=== PATIENT | male | born 1995 | race African-American/Black ===

== ENCOUNTER 2017-08-18 02:22 | Observation (INO) | payer OTHER ==
--- OUTSIDE RECORDS SUMMARY | 2017-08-18 02:25 | XMS | Clinical Summary ---
:1995 Author Organization [facility] Address [address] [place] [address] Phone Care Team Providers Name Role Phone , Primary Care Provider Unavailable Allergies Active Allergy Reactions Severity Noted Date Comments Codeine 05/06/2017 Loracarbef 05/06/2017 Hydrocodone-Acetaminophen 05/06/2017 Current Medications Prescription Sig. Disp. Refills Start Date End Date Status diphenoxylate-atropin Take 1 tablet Active e (LOMOTIL) 2.5-0.025 by mouth 4 mg per tablet (four) times daily as needed for Diarrhea. ondansetron (ZOFRAN) Take 4 mg by Active 4 MG tablet mouth 2 (two) times daily as needed for Nausea. ferric citrate 210 mg Take 630 mg by Active iron Tab mouth 3 (three) times daily. metoprolol Take 150 mg by Active (TOPROL-XL) 100 MG 24 mouth daily . hr tablet acetaminophen-codeine Take 1 tablet Active (TYLENOL #3) 300-30 by mouth every mg per tablet 4 (four) hours as needed for Pain. amLODIPine (NORVASC) Take 10 mg by Active 10 MG tablet mouth daily. sevelamer (RENVELA) Take 4,000 mg Active 800 mg tablet by mouth 3 (three) times daily with meals. ferrous Take 1 capsule Active [id number] by mouth every C-folic acid morning before (FOLTRIN) 110-0.5 mg breakfast. capsule esomeprazole (NEXIUM) Take 40 mg by Active 40 MG capsule mouth as needed . sertraline (ZOLOFT) TK 1 T PO QD 3 06/20/2017 Active 25 MG tablet predniSONE Take 15 mg by Active (DELTASONE) 5 MG mouth daily. tablet predniSONE 0.5 MG Take 15 mg by 08/07/2017 Discontinued halftab half tablet mouth daily. Active Problems Problem Noted Date Pre-transplant evaluation for chronic kidney disease 08/08/2017 ESRD (end stage renal disease) (FORM[facility]LY [facility]) 08/08/2017 S/p cadaver renal transplant 08/08/2017 Kidney transplant failure 08/08/2017 Secondary hypertension due to renal disease 08/08/2017 Obesity (BMI 30-39.9) 08/08/2017 Secondary hyperparathyroidism of renal origin (FORM[facility]LY [facility]) 08/08/2017 Encounters Date Type Specialty Care Team Description 08/12/2017 Scanned Document 08/11/2017 Abstract Transplant Cydney Ojeda RN 08/11/2017 Telephone Transplant Cydney Ojeda RN Committee Review 08/07/2017 Evaluation Transplant Isabel Preciado MD 08/07/2017 Evaluation Transplant Isabel Preciado Pre-transplant evaluation MD Uday for chronic kidney disease (Primary Dx);ESRD (end stage renal disease) (FORMERLY [facility]);S/p cadaver renal transplant;Kidney transplant failure;Secondary hypertension due to renal disease;Obesity (BMI 30-39.9);Secondary hyperparathyroidism of renal origin (FORM[facility]LY [facility]) 08/07/2017 Hospital Encounter Radiology Isabel Preciado MD 08/07/2017 Hospital Encounter Cardiology Isabel Preciado Pre- transplant evaluation MD Uday for chronic kidney disease;ESRD (end stage renal disease) on dialysis (FORM[facility]) 08/07/2017 Orders Only Lab Isabel Preciado Pre-transplant evaluation MD Uday for chronic kidney disease;ESRD (end stage renal disease) on dialysis ([facility]) 08/07/2017 Committee Review Transplant Belinda Rivera 08/07/2017 Orders Only Transplant Isabel Preciado Pre-transplant evaluation MD Uday for chronic kidney disease;ESRD (end stage renal disease) on dialysis ([facility]) 08/05/2017 Telephone Transplant Belinda Rivera Appointment (Spoke with Mr. Horn and he confirmed his appt for 08/07/17. The patient is aware of the preps for the procedue and he's aware of the location of the appts.) 06/11/2017 Telephone Transplant Belinda Rivera Appointment (Per patient grandmother Cydney the patient is unable to keep his appts on 06/12/17); Appointment (Ms. Rod is aware of the new appt date of and she's aware of the preps for thelabs and testing. The itinerary has been mailed to the patient and faxed to the hd unit) from Last 3 Months Family History Medical History Relation Name Comments Unremarkable Brother No Known Problem Father Pancreatitis Mother Ulcers Sister Stomach ulcers Unremarkable Sister Relation Name Status Comments Brother Alive Father Mother Alive Sister Alive Sister Alive Social History Tobacco Use Types Packs/Day Years Used Date Former Smoker Quit: 08/07/2015 Smokeless Tobacco: Never Used Alcohol Use Drinks/Week oz/Week Comments No Sex Assigned at Date Recorded Not on file Last Filed Vital Signs Vital Sign Reading Time Taken Blood Pressure 141/98 08/07/2017 11:21 AM CDT Pulse 94 08/07/2017 11:21 AM CDT Temperature 36.8 C (98.2 F) 08/07/2017 11:21 AM CDT Respiratory Rate 18 08/07/2017 11:21 AM CDT Oxygen Saturation - - Inhaled Oxygen Concentration - - Weight 114.5 kg (252 lb 8 oz) 08/07/2017 11:21 AM CDT Height 188 cm (6' 2") 08/07/2017 11:21 AM CDT Body Mass Index 32.42 08/07/2017 11:21 AM CDT Plan of Treatment Health Maintenance Due Date Last Done Comments INFLUENZA VACCINE 08/24/2017 Results TRANSFUSION SERVICE REPORT - SCAN (08/08/2017 5:45 PM)ECHOCARDIOGRAM REPORT - SCAN (08/07/2017 2:52 PM)CTA abdomen& pelvis (08/07/2017 11:03 AM) Specimen Performing Laboratory [employer] Narrative Addendum Begins REPORT STATUS:A Addendum I have reviewed the nonvascular findings and concur with Dr. Guy's report. Signed: Roro Negron MD Report Verified Date/Time:08/07/2017 14:22:50 Reading Location: [place] [address] Angio Body Reading Room Addendum Ends FINAL REPORT CT angiography of the abdominal aorta and pelvic arteries, 07 August 2017 INDICATION: This is a 22 year old male with end-stage renal disease, presents for pretransplant assessment..This study is performed in an attempt to avoid an invasive procedure. TECHNIQUE: Spiral acquisition before and during intravenous contrast administration using a GE multidetector CT scanner. Images were obtained before and during the dynamic passage of intravenous contrast material.Multi-planar 3-D volume-rendering reconstruction was performed using an independent workstation interactively by the interpreting physician as well as the 3-D specialist for optimal visualisation of the abdominal aorta, pelvic arteries, and its proximal branches. Please refer to the contrast sheet scanned in the RIS system for the amount and route of contrast given. This exam was performed according to our departmental dose-optimisation programme, which includes automated exposure control, adjustment of the mA and/or kV according to patient size and/or use of iterative reconstruction technique. Dose modulation, iterative reconstruction, and/or weight based adjustment of the mA/kV was utilized to reduce the radiation dose to as low as reasonably achievable. FINDINGS: VASCULAR: The abdominal aorta is normal in course, calibre and contour.There is no evidence of acute aortic pathology, specifically, there is no dissection, intramural hematoma, or contained rupture. Quantitative dimensions of the abdominal aorta are as follows: 2.3 cm at the mesenteric segment; 1.8 cm at the renal segment,; and 1.7 cm at the aortic bifurcation. The common iliac, external iliac, common femoral, and the visualized superficial femoral arteries, bilaterally, are widely patent, with no atherosclerosis identified labor representative dimensions of the left and the right external iliac arteries are 8 and 8 mm, respectively. Patient is post renal transplantation. The anastomotic site of the transplant renal artery is at image 231, approximately 4.9 cm from the takeoff of the right external iliac artery. While the origin of the transplant artery is enhanced by contrast, remainder of the transplant artery is not well enhanced by contrast. Similarly, the associated pelvic veins are patent with no venous thrombosis identified.Snuff Grinder dimensions of the left and the right external iliac veins are 13 and 16 mm, respectively. The anastomotic site of the transplant renal vein to the right external iliac vein is at image 55 of the delay images, similar to the transplant artery level. Single left and right renal arteries are seen in the ethmoid in size, consistent with end-stage renal disease status. The celiac axis, SMA, and FADY are widely patent. There are single left and right renal veins that drain normally into inferior vena cava. NON-VASCULAR:- The lung bases are unremarkable. No pleural effusion is identified. In the abdomen, the liver and spleen appears unremarkable. The liver edge is smooth. No abnormal enhancing structure is identified. Small splenule is identified. The gallbladder appears unremarkable. The adrenal glass are not enlarged. The pancreas have no gross abnormality identified. No acute renal pathology is seen and no hydronephrosis or perirenal fluid collection is identified. The kidneys are atrophic consistent with end-stage renal disease status. Tiny nonobstructive renal stone is seen in the right kidney at image 34 measuring 102 mm in diameter. Subcentimeter cyst is identified in the lateral aspect of the right kidney, incompletely assessed, , at image 109. A transplant kidney is identified in the right iliac fossa. No hydronephrosis or perirenal fluid collection is seen. Bowel is not well assessed by CT angiography as enteric contrast is not given. No obvious bowel dilation is identified. No free air or free fluid is seen in the abdomen and pelvis. The prostate appears unremarkable. The bladder has no gross abnormality identified. No acute bony pathology is identified. Sclerosis is seen, likely represent underlying renal osteodystrophy. CONCLUSION: 1. The abdominal aorta is normal in course, calibre and contour. There is no evidence of acute aortic pathology, specifically, there is no dissection, intramural hematoma, or contained rupture. Quantitative dimension of the abdominal aorta are as noted. The pelvic arteries and veins are widely patent with no arterial stenosis or venous thrombosis identified. Snuff Grinder dimensions of the left and the right external iliac arteries and veins are as described above. Patient is post renal transplantation, and the transplant vasculature is to the right external iliac artery and vein as described above. 2. Patent mesenteric arteries. Patent renal arteries. 3.Other findings as described above. 4.An addendum will be dictated regarding the non-vascular findings by the Senior Buyer Planner Radiologist. Signed: Sebastian Guy MD Report Verified Date/Time:08/07/2017 12:37:23 Reading Location: [facility] [address] Cardiology MRI Procedure Note Interface, External Ris In - 08/07/2017 2:24 PM CDT Addendum Begins REPORT STATUS:A Addendum I have reviewed the nonvascular findings and concur with Dr. Guy's report. Signed: Roro Negron MD Report Verified Date/Time: 08/07/2017 14:22:50 Reading Location: [facility] [address] Angio Body Reading Room Addendum Ends FINAL REPORT CT angiography of the abdominal aorta and pelvic arteries, 07 August 2017 INDICATION: This is a 22 year old male with end-stage renal disease, presents for pretransplant assessment.. This study is performed in an attempt to avoid an invasive procedure. TECHNIQUE: Spiral acquisition before and during intravenous contrast administration using a GE multidetector CT scanner. Images were obtained before and during the dynamic passage of intravenous contrast material. Multi-planar 3-D volume-rendering reconstruction was performed using an independent workstation interactively by the interpreting physician as well as the 3-D specialist for optimal visualisation of the abdominal aorta, pelvic arteries, and its proximal branches. Please refer to the contrast sheet scanned in the RIS system for the amount and route of contrast given. This exam was performed according to our departmental dose-optimisation programme, which includes automated exposure control, adjustment of the mA and/or kV according to patient size and/or use of iterative reconstruction technique. Dose modulation, iterative reconstruction, and/or weight based adjustment of the mA/kV was utilized to reduce the radiation dose to as low as reasonably achievable. FINDINGS: VASCULAR: The abdominal aorta is normal in course, calibre and contour. There is no evidence of acute aortic pathology, specifically, there is no dissection, intramural hematoma, or contained rupture. Quantitative dimensions of the abdominal aorta are as follows: 2.3 cm at the mesenteric segment; 1.8 cm at the renal segment,; and 1.7 cm at the aortic bifurcation. The common iliac, external iliac, common femoral, and the visualized superficial femoral arteries, bilaterally, are widely patent, with no atherosclerosis identified labor representative dimensions of the left and the right external iliac arteries are 8 and 8 mm, respectively. Patient is post renal transplantation. The anastomotic site of the transplant renal artery is at image 231, approximately 4.9 cm from the takeoff of the right external iliac artery. While the origin of the transplant artery is enhanced by contrast, remainder of the transplant artery is not well enhanced by contrast. Similarly, the associated pelvic veins are patent with no venous thrombosis identified. Snuff Grinder dimensions of the left and the right external iliac veins are 13 and 16 mm, respectively. The anastomotic site of the transplant renal vein to the right external iliac vein is at image 55 of the delay images, similar to the transplant artery level. Single left and right renal arteries are seen in the ethmoid in size, consistent with end-stage renal disease status. The celiac axis, SMA, and FADY are widely patent. There are single left and right renal veins that drain normally into inferior vena cava. NON-VASCULAR:- The lung bases are unremarkable. No pleural effusion is identified. In the abdomen, the liver and spleen appears unremarkable. The liver edge is smooth. No abnormal enhancing structure is identified. Small splenule is identified. The gallbladder appears unremarkable. The adrenal glass are not enlarged. The pancreas have no gross abnormality identified. No acute renal pathology is seen and no hydronephrosis or perirenal fluid collection is identified. The kidneys are atrophic consistent with end-stage renal disease status. Tiny nonobstructive renal stone is seen in the right kidney at image 34 measuring 102 mm in diameter. Subcentimeter cyst is identified in the lateral aspect of the right kidney, incompletely assessed, , at image 109. A transplant kidney is identified in the right iliac fossa. No hydronephrosis or perirenal fluid collection is seen. Bowel is not well assessed by CT angiography as enteric contrast is not given. No obvious bowel dilation is identified. No free air or free fluid is seen in the abdomen and pelvis. The prostate appears unremarkable. The bladder has no gross abnormality identified. No acute bony pathology is identified. Sclerosis is seen, likely represent underlying renal osteodystrophy. CONCLUSION: 1. The abdominal aorta is normal in course, calibre and contour. There is no evidence of acute aortic pathology, specifically, there is no dissection, intramural hematoma, or contained rupture. Quantitative dimension of the abdominal aorta are as noted. The pelvic arteries and veins are widely patent with no arterial stenosis or venous thrombosis identified. Snuff Grinder dimensions of the left and the right external iliac arteries and veins are as described above. Patient is post renal transplantation, and the transplant vasculature is to the right external iliac artery and vein as described above. 2. Patent mesenteric arteries. Patent renal arteries. 3. Other findings as described above. 4. An addendum will be dictated regarding the non-vascular findings by the Senior Buyer Planner Radiologist. 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 Clinical History ESRD Hypertension HGB 12.1 HCT 36.1 % Height: 74 inches Weight: 113.4 kg (250 lbs) BSA: 2.39 m^2 BMI: 32.1 kg/m^2 HR: 89 bpm BP: 138/97 mmHg Summary Global LV systolic function normal . Moderate concentric LV hypertrophy. Aortic root size (Sinus of Valsalva diameter) is moderately dilated. 4.3 cm Proximal ascending aorta size moderately dilated . 4.1 cm A trace of aortic regurgitation. Unable to estimate peak systolic PA pressure; inadequate TR velocity signal. The estimated RA pressure by IVC dynamics 5-10mmHg . Signature Findings Left Ventricle The left ventricle is chamber size (by vol index ) is normal (male - LVED vol - 34-74ml/m2). Moderate concentric LV hypertrophy. All of the LV segments contract normally . Global LV systolic function normal . LVEF by quantitative assessment is normal (>60%) , Left AtriumLA size is normal (16-34 ml/m2) . Right VentricleThe right ventricular chamber size and systolic function are within normal limits. Right Atrium RA size is normal. Aortic Valve Mild AoV cusp thickening. A trace of aortic regurgitation. Mitral Valve Mild MV leaflet thickening. Trace mitral regurgitation. Tricuspid ValveTV structure is normal. Unable to estimate peak systolic PA pressure; inadequate TR velocity signal. Pulmonic Valve Normal PV structure appears normal by available views. A trace of pulmonary regurgitation. AortaAortic root size (Sinus of Valsalva diameter) is moderately dilated. 4.3 cm Proximal ascending aorta size moderately dilated . 4.1 cm PericardiumNo pericardial effusion is visualized. IVC/SVC/PA/PV/PleuralThe estimated RA pressure by IVC dynamics 5-10mmHg . Chambers/Structures Left Atrium LA Dimension: 3.44 cmLA Area: 20.99 cm^2 LA Volume: 64.28 ml LA Vol. Index: 27 ml/m^2 Left Ventricle LVIDd: 4.68 cm LVEDV 2D: 147.81 ml LVIDs: 2.98 cm LVESV 2D: 44.73 ml LV Septum Diastolic: 1.91 cm LV PW Diastolic: 1.4 cm LVEDV BP Daniels's:143.17 ml LV FS: 36.3 % LVESV BP Daniels's:49.35 mlLV ESV (Cubed):26.46 cc LVEF BP Daniels's: 65.5 % LVOT Diameter: 2.42 cm LV ESV (Teich):34.43 ml LV SV (Teich):66.91 ml LV SI (Teich):28 ml/m^2 LVEF 2D Teich: 69.7 % Aorta Ascending Aorta: 4.06 cm Shunts QS:154.45 ml Doppler/Quantitative Measurements Mitral Valve MV Peak E-Wave: 0.91 m/s MV Peak A-Wave: 0.66 m /s E /A Ratio: 1.39 P eak Gradient: 3.31 mmHg Tissue Doppler E' Septal Velocity: 0.06 m/s E/E': 14.65 E' Lateral Velocity: 0.09 m/s Aortic Valve Peak Velocity: 1.69 m/sMean Velocity: 1.16 m/s Peak Gradient: 11.37 mmHgMean Gradient: 6.21 mmHg AV Area (continuity): 5.14 cm^2 AV VTI: 30.02 cm AV DVI: 1.12 LVOT Peak Velocity: 1.56 m/s Peak Gradient: 9.74 mmHg Mean Velocity: 1.15 m/s Mean Gradient: 6.13 mmHg LVOT Diameter: 2.42 cmLVOT VTI: 33.58 cm LVOT Area: 4.6 cm^2 LVOT SV:154.38 ml LVOT CO: 13.74 l/minLVOT CI: 5.75 l/min/m^2 Procedure Note Interface, External Ris In - 08/07/2017 2:12 PM CDT Transthoracic Echocardiography Report (TTE) Demographics Patient Name ERIN HORN Date of Study 08/07/2017 JERALD Gender Male Visit Number [id number] Race Black Room Number Number Date of 1995 Referring Ozzy Hall Physician Uday 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 Clinical History ESRD Hypertension HGB 12.1 HCT 36.1 % Height: 74 inches Weight: 113.4 kg (250 lbs) BSA: 2.39 m^2 BMI: 32.1kg/m^2 HR: 89 bpm BP: 138/97 mmHg Summary Global LV systolic function normal . Moderate concentric LV hypertrophy. Aortic root size (Sinus of Valsalva diameter) is moderately dilated.4.3 cm Proximal ascending aorta size moderately dilated . 4.1 cm A trace of aortic regurgitation. Unable to estimate peak systolic PA pressure; inadequate TR velocity signal. The estimated RA pressure by IVC dynamics 5-10mmHg . Signature Findings Left Ventricle The left ventricle is chamber size (by volindex) is normal (male - LVED vol - 34-74ml/m2). Moderate concentric LV hypertrophy. All of the LV segments contract normally . Global LV systolic function normal . LVEF by quantitative assessment is normal (>60%), Left Atrium LA size is normal (16-34 ml/m2) . Right Ventricle The right ventricular chamber size and systolic function are within normal limits. Right Atrium RA size is normal. Aortic Valve Mild AoV cusp thickening. A trace of aortic regurgitation. Mitral Valve Mild MV leaflet thickening. Trace mitral regurgitation. Tricuspid Valve TV structure is normal. Unable to estimate peak systolic PA pressure; inadequate TR velocity signal. Pulmonic Valve Normal PV structure appears normal by available views. A trace of pulmonary regurgitation. Aorta Aortic root size (Sinus of Valsalva diameter) is moderately dilated. 4.3 cm Proximal ascending aorta size moderately dilated. 4.1 cm Pericardium No pericardial effusion is visualized. IVC/SVC/PA/PV/Pleural The estimated RA pressure by IVC dynamics5-10mmHg . Chambers/Structures Left Atrium LA Dimension: 3.44 cm LA Area: 20.99 cm^2 LA Volume: 64.28 ml LA Vol. Index: 27 ml/m^2 Left Ventricle LVIDd: 4.68 cm LVEDV 2D:147.81 ml LVIDs: 2.98 cm LVESV 2D:44.73 ml LV Septum Diastolic: 1.91 cm LV PW Diastolic: 1.4 cm LVEDV BP Daniels's:143.17 ml LV FS: 36.3 % LVESV BP Daniels's:49.35 ml LV ESV (Cubed):26.46 cc LVEF BP Daniels's: 65.5 % LVOT Diameter: 2.42 cm LV ESV (Teich):34.43 ml LV SV (Teich):66.91 ml LV SI (Teich):28 ml/m^2 LVEF 2D Teich: 69.7 % Aorta Ascending Aorta: 4.06 cm Shunts QS:154.45 ml Doppler/Quantitative Measurements Mitral Valve MV Peak E-Wave: 0.91 m/s MV Peak A-Wave: 0.66 m/s E/A Ratio: 1.39 Peak Gradient: 3.31 mmHg Tissue Doppler E' Septal Velocity: 0.06 m/s E/E': 14.65 E' Lateral Velocity: 0.09 m/s Aortic Valve Peak Velocity: 1.69 m/s Mean Velocity: 1.16 m/s Peak Gradient: 11.37 mmHg Mean Gradient: 6.21 mmHg AV Area (continuity): 5.14 cm^2 AV VTI: 30.02 cm AV DVI: 1.12 LVOT Peak Velocity: 1.56 m/s Peak Gradient: 9.74 mmHg Mean Velocity: 1.15 m/s Mean Gradient: 6.13 mmHg LVOT Diameter: 2.42 cm LVOT VTI: 33.58 cm LVOT Area: 4.6 cm^2 LVOT SV:154.38 ml LVOT CO: 13.74 l/min LVOT CI: 5.75 l/min/m^2 T Spot TB (08/07/2017 6:53 AM) Component Value Ref Range T-Spot TB Negative Neg Ctrl Spot Count 0 Panel A Spot 0 Panel B Spot [address] >20 Scan Result Specimen Performing Laboratory Blood [facility] [address] [address] PT/aPTT (08/07/2017 6:53 AM) Component Value Ref Range Protime 14.1 11.7 - 14.7 seconds INR 1.1 <=5.9 PTT 33.2 22.5 - 36.0 seconds Specimen Performing Laboratory Blood [address] [address] Narrative RECOMMENDED COUMADIN/WARFARIN INR THERAPY RANGES STANDARD DOSE: 2.0 - 3.0 Includes: PROPHYLAXIS for venous thrombosis, systemic embolization; TREATMENT for venous thrombosis and/or pulmonary embolus. HIGH RISK: Target INR is 2.5-3.5 for patients with mechanical heart valves. HIV-1 Antigen with HIV-1/2 Antibody (08/07/2017 6:53 AM) Component Value Ref Range HIV-1 Antigen with HIV 1&2 Antibody Nonreactive Nonreactive Specimen Performing Laboratory Blood [address] [place] [address] CBC with platelet count + automated diff (08/07/2017 6:53 AM) Component Value Ref Range WBC 7.3 3.5 - 10.5 K/L RBC 3.95(L) 4.63 - 6.08 M/L Hemoglobin 12.1(L) 13.7 - 17.5 GM/DL Hematocrit 36.1(L) 40.1 - 51.0 % MCV 91.4 79.0 - 92.2 fL MCH 30.6 25.7 - 32.2 pg MCHC 33.5 32.3 - 36.5 GM/DL RDW 14.8(H) 11.6 - 14.4 % Platelets 195 150 - 450 K/CU MM MPV 10.4 9.4 - 12.4 fL nRBC 0 0 - 0 /100 WBC % Neutros 49 % % Lymphs 33 % % Monos 13 % % Eos 5 % % Baso 1 % # Neutros 3.57 1.78 - 5.38 K/L # Lymphs 2.43 1.32 - 3.57 K/L # Monos 0.93(H) 0.30 - 0.82 K/L # Eos 0.33 0.04 - 0.54 K/L # Baso 0.05 0.01 - 0.08 K/L Immature Granulocytes-Relative 0 0 - 1 % Specimen Performing Laboratory [address] [address] Hepatitis C Antibody (08/07/2017 6:53 AM) Component Value Ref Range Hepatitis C Ab Nonreactive Nonreactive Specimen Performing Laboratory [address] [address] Cytomegalovirus antibody, IgM (08/07/2017 6:53 AM) Component Value Ref Range CMV IgM Negative Specimen Performing Laboratory [address] [address] Hepatitis B core antibody, IgM (08/07/2017 6:53 AM) Component Value Ref Range Hep B C IgM Nonreactive Nonreactive Specimen Performing Laboratory [address] [address] EBV-VCA antibody, IgM (08/07/2017 6:53 AM) Component Value Ref Range EBV VCA IgM Negative Specimen Performing Laboratory Blood [address] [address] EBV-VCA antibody, IgG (08/07/2017 6:53 AM) Component Value Ref Range EBV VCA IgG Positive Specimen Performing Laboratory Blood [address] [address] RPR (08/07/2017 6:53 AM) Component Value Ref Range RPR Nonreactive Nonreactive Specimen Performing Laboratory Blood [address] [address] Hepatitis B surface antibody (08/07/2017 6:53 AM) Component Value Ref Range Hep B S Ab 366.6(H) <8.0 mIU/mL Specimen Performing Laboratory Blood [address] [address] Hepatitis B surface antigen (08/07/2017 6:53 AM) Component Value Ref Range hepatitis B Surface Ag Nonreactive Nonreactive Specimen Performing Laboratory [address] [address] Cytomegalovirus antibody, IgG (08/07/2017 6:53 AM) Component Value Ref Range CMV IgG Positive Specimen Performing Laboratory Blood [address] [address] CBC w/PLT Count& Auto Differential (08/07/2017 6:53 AM) Specimen Performing Laboratory Blood Narrative The following orders were created for panel order CBC w/PLT Count & Auto Differential. Procedure Abnormality Status --------- ------ CBC with platelet count ...[[id number]]AbnormalFinal result Please view results for these tests on the individual orders. Direct AHG (NATALYA)/Direct Nona (08/07/2017 6:53 AM) Component Value Ref Range Direct [facility]-IGG NEGATIVE Direct [facility]-C3B, C3D NEGATVIE Specimen Performing Laboratory Blood [address] [address] Varicella Zoster Antibody, IgG (08/07/2017 6:53 AM) Component Value Ref Range Varicella IgG 0.4 Al Specimen Performing Laboratory [address] [address] Narrative VARICELLA ZOSTER RESULT INTERPRETATIONS: <=0.8 AlNonreactive:Presumed non-immune to VZV 0.9-1.0 AlEquivocal >=1.1 AlReactive:Presumed immune to VZV Uric Acid (08/07/2017 6:53 AM) Component Value Ref Range Uric Acid 3.0 2.6 - 7.2 mg/dL Specimen Performing Laboratory [address] [address] Phosphorus (08/07/2017 6:53 AM) Component Value Ref Range Phosphorus 3.9 2.3 - 4.7 mg/dL Specimen Performing Laboratory [address] [address] PTH, Intact (08/07/2017 6:53 AM) Component Value Ref Range PTH 647.2(H) 8.5 - 72.5 pg/mL Specimen Performing Laboratory [address] [address] Lactate Dehydrogenase (LDH) (08/07/2017 6:53 AM) Component Value Ref Range LDH 165 125 - 220 U/L Specimen Performing Laboratory [address] [address] Hemoglobin A1c (08/07/2017 6:53 AM) Component Value Ref Range Hemoglobin A1C 4.6 4.3 - 6.1 % Specimen Performing Laboratory [address] [address] Gamma Glutamyl Transferase (GGT) (08/07/2017 6:53 AM) Component Value Ref Range GGT 29 9 - 64 U/L Specimen Performing Laboratory [address] [address] Lipid panel (08/07/2017 6:53 AM) Component Value Ref Range Triglycerides 98 mg/dL Cholesterol 129 mg/dL HDL 40 mg/dL LDL Calculated 69 mg/dL Specimen Performing Laboratory [address] [address] Narrative Triglyceride Reference Range: Low Risk <150 [id number] High Risk 200-499 Very High Risk>=500 Cholesterol Reference Range: Low Risk <200 [id number] High Risk>240 HDL Cholesterol Reference Range: Low Risk >=60 High Risk <40 LDL Cholesterol Reference Range: Optimal<100 Near Hzwagcu142-309 [id number] Kjgv324-557 Very High >=190 Comprehensive metabolic panel (08/07/2017 6:53 AM) Component Value Ref Range Protein, Total 8.1 6.0 - 8.3 gm/dL Albumin 4.3 3.5 - 5.0 g/dL Alkaline Phosphatase 80 40 - 150 U/L Total Bilirubin 0.4 0.2 - 1.2 mg/dL Sodium 140 136 - 145 meq/L Potassium 3.7 3.5 - 5.1 meq/L Chloride 98 98 - 107 meq/L CO2 30(H) 22 - 29 meq/L BUN 18 7 - 21 mg/dL Creatinine 9.01(H) 0.57 - 1.25 mg/dL Glucose 94 70 - 105 mg/dL Calcium 9.8 8.4 - 10.2 mg/dL AST 13 5 - 34 U/L ALT 18 6 - 55 U/L EGFR 9Comment:ESTIMATED GFR IS NOT ACCURATE mL/min/1.73 sq m CREATININE CLEARANCE IN PREDICTING GLOMERULAR FILTRATION RATE. ESTIMATED GFR IS NOT APPLICABLE FOR DIALYSIS PATIENTS. Specimen Performing Laboratory Blood [facility] [address] [place] [address] from Last 3 Months
--- OUTSIDE RECORDS SUMMARY | 2017-08-18 02:25 | XMS ---
:1995 Author Organization [facility] Care Team Providers Name Role Phone SKIN FITTER BLU Unavailable Unavailable SKIN FITTER, BLU Unavailable Unavailable SKIN FITTER, BLU Unavailable Unavailable SKIN FITTER, BLU Unavailable Unavailable SKIN FITTER, BLU Unavailable Unavailable SKIN FITTER, BLU Unavailable Unavailable YAZDANISM, NASIR Unavailable Unavailable YAZDANISM, NASIR Unavailable Unavailable YAZDANISM, NASIR Unavailable Unavailable YAZDANISM, NASIR Unavailable Unavailable YAZDANISM, NASIR Unavailable Unavailable YAZDANISM, NASIR Unavailable Unavailable YAZDANISM, NASIR Unavailable Unavailable YAZDANISM, NASIR Unavailable Unavailable YAZDANISM, NASIR Unavailable Unavailable YAZDANISM, NASIR Unavailable Unavailable MOLINA, PEYMAN Unavailable Unavailable MOLINA, PEYMAN Unavailable Unavailable MOLINA, PEYMAN Unavailable Unavailable MOLINA, PEYMAN Unavailable Unavailable MOLINA, PEYMAN Unavailable Unavailable MOLINA, PEYMAN Unavailable Unavailable MOLINA, PEYMAN Unavailable Unavailable MOLINA, PEYMAN Unavailable Unavailable MOLINA, PEYMAN Unavailable Unavailable RANA, MIKAELA Unavailable Unavailable RANA, MIKAELA Unavailable Unavailable RANA, MIKAELA Unavailable Unavailable RANA, MIKAELA Unavailable Unavailable RANA, MIKAELA Unavailable Unavailable MINCHER, CARISSA Unavailable Unavailable MINCHER, CARISSA Unavailable Unavailable MINCHER, CARISSA Unavailable Unavailable MINCHER, CARISSA Unavailable Unavailable SHARA, YASMANI Unavailable Unavailable SHARA, YASMANI Unavailable Unavailable SHARA, YASMANI Unavailable Unavailable SHARA, YASMANI Unavailable Unavailable SHARA, YASMANI Unavailable Unavailable SHARA, YASMANI Unavailable Unavailable SHARA, YASMANI Unavailable Unavailable SHARA, YASMANI Unavailable Unavailable SHARA, YASMANI Unavailable Unavailable SHARA, YASMANI Unavailable Unavailable Encounters Encounter Providers Location Date Indications Data Source(s) Outpatient Attender: PEYMAN 12/15/2013 [facility] MOLINA MDAdmitter: 11:33:00 AM LOGGING ENGINEER PEYMAN MOLINA MD [facility]: [facility] Inpatient Attender: BLU LOPEZ 11/25/2013 DELArian MDAdmitter: CARISSA 10:37:00 AM LOGGING ENGINEER ANNABEL FERREIRA - 12/08/2013 03:50:00 PM LOGGING ENGINEER Outpatient Attender: YASMANI OLMEDO 06/21/2013 RADHA MDAdmitter: YASMANI 08:15:00 AM CDT SHARA FERREIRA Out[facility]: [facility] 10[facility] AM [facility]T [facility] Outpatient Attender: YASMANI OLMEDO 06/02/2013 RADHA MDAdmitter: YASMANI 09:13:00 AM CDT SHARA FERREIRA Outpatient Attender: YASMANI OLMEDO 05/12/2013 RADHA MDAdmitter: YASMANI 10:24:00 AM CDT SHARA FERREIRA Outpatient Attender: YASMANI OLMEDO 04/21/2013 RADHA MDAdmitter: YASMANI 10:42:00 AM CDT SHARA FERREIRA Inpatient Attender: YASMANI OLMEDO 03/24/2013 RADHA MCGUIREdmitter: YASMANI 12:20:00 PM CDT SHARA FERREIRA - 03/28/2013 10:40:00 PM CDT Inpatient Attender: YASMANI OLMEDO 03/01/2013 RADHA MCGUIREdmitter: YASMANI 12:47:00 PM CDT SHARA FERREIRA - 03/03/2013 08:10:00 AM CDT Outpatient Attender: [facility]: [facility] AM LOGGING ENGINEER [facility] Outpatient Attender: [facility] AM [facility] Inpatient Attender: YASMANI OLMEDO 08/19/2011 [facility]HA FERREIRA 06:40:00 PM CDT - 08/23/2011 02:00:00 PM CDT Inpatient Attender: YASMANI OLMEDO 07/22/2011 [facility] FERREIRA 06:57:00 PM CDT - 08/09/2011 12:20:00 PM CDT Inpatient Attender: YASMANI OLMEDO 06/03/2011 [facility] FERREIRA 03:44:00 PM CDT - 06/07/2011 09:45:00 AM CDT Inpatient Attender: YASMANI OLMEDO 04/01/2011 [facility] FERREIRA 08:36:00 AM CDT - 04/05/2011 04:12:00 PM CDT Inpatient Attender: YASMANI OLMEDO 03/20/2011 RADHA FERREIRA 08:32:00 AM CDT - 03/22/2011 03:23:00 PM CDT Outpatient Attender: MIKAELA CARY 12/12/2010 RADHA FERREIRA 12:11:00 PM LOGGING ENGINEER Insurance Providers Payer name Policy type Policy ID Covered Covered libertarian's Policy Plan / Coverage libertarian ID relationship to Linda Information type linda [place] NOT_[id number] 608_IN_[id number] [place] NOT_VALID_[id number] 777_IN_[id number] MEDICAID Medicaid NOT_[id number] 675_IN_1 [place] NOT_VALID_[id number] 326_IN_1 MEDICAID Medicaid NOT_[id number]_IN_[id number] [place] NOT_VALID_[id number]_IN_[id number] [place] NOT_VALID_[id number]_IN_1 [place] NOT_VALID_[id number] 640_IN_1 [place] Medicaid NOT_VALID_[id number] 514_IN_1 [facility] Medicaid NOT_VALID_[id number]_IN_[id number] SUPERIOR Medicaid MC NOT_VALID_[id number] STAR 524_IN_1 SUPERIOR Medicaid MC NOT_[id number] STAR 341_IN_1 Medicaid MC NOT_VALID_0000 [id number] Medicaid MC NOT_VALID_0000 [id number] Medicaid MC NOT_VALID_0000 [id number] Medicaid MC NOT_VALID_0000 [id number] Medicaid MC NOT_VALID_0000 [id number] Medicaid MC NOT_VALID_0000 [id number] Problems, Conditions, and Diagnoses Code Display Name Description Effective Dates Data Source(s) 284.19 OTHER PANCYTOPENIA PANCYTOPENIA NEC 12/15/2013 [facility] 11:59:00 PM LOGGING ENGINEER 558.9 OTHER AND UNSPECIFIED NONINF GASTROENT 12/15/2013 [facility] NONINFECTIOUS NEC&NOS 11:59:00 PM LOGGING ENGINEER GASTROENTERITIS AND COLITIS 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 12/15/2013 [facility] TRANSPLANT STATUS 11:59:00 PM LOGGING ENGINEER 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 12/15/2013 [facility] 11:59:00 PM LOGGING ENGINEER 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 12/15/2013 [facility] 11:33:00 AM LOGGING ENGINEER 008.69 ENTERITIS DUE TO OTHER VIRAL ENTERITIS NEC 12/08/2013 [facility] VIRAL ENTERITIS 03:50:00 PM LOGGING ENGINEER 403.91 HYPERTENSIVE CHRONIC HTN CKD NOS V-ESRD 12/08/2013 [facility] KIDNEY DISEASE 03:50:00 PM LOGGING ENGINEER UNSPECIFIED WITH CHRONIC KIDNEY DISEASE STAGE V OR END STAGE RENAL DISEASE 425.4 OTHER PRIMARY PRIM CARDIOMYOPATHY NEC 12/08/2013 [facility] CARDIOMYOPATHIES 03:50:00 PM LOGGING ENGINEER 288.00 NEUTROPENIA UNSPECIFIED NEUTROPENIA NOS 12/08/2013 [facility] 03:50:00 PM LOGGING ENGINEER 284.19 OTHER PANCYTOPENIA PANCYTOPENIA NEC 12/08/2013 [facility] 03:50:00 PM LOGGING ENGINEER 585.6 END STAGE RENAL DISEASE ESRD 12/08/2013 [facility] 03:50:00 PM LOGGING ENGINEER 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 12/08/2013 [facility] 03:50:00 PM LOGGING ENGINEER 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 12/08/2013 [facility] TRANSPLANT STATUS 03:50:00 PM LOGGING ENGINEER 532.90 DUODENAL ULCER DU NOS W/O COMP 12/08/2013 [facility] UNSPECIFIED ACUTE OR 03:50:00 PM LOGGING ENGINEER CHRONIC WITHOUT HEMORRHAGE OR PERFORATION WITHOUT OBSTRUCTION 429.3 CARDIOMEGALY CARDIOMEGALY 12/08/2013 [facility] 03:50:00 PM LOGGING ENGINEER 783.21 LOSS OF WEIGHT LOSS OF WEIGHT 11/25/2013 [facility] 10:37:00 AM LOGGING ENGINEER V12.61 PERSONAL HISTORY OF HX PNEUMONIA 07/30/2013 [facility] PNEUMONIA (RECURRENT) 11:59:00 PM CDT E878.2 SURGICAL OPERATION WITH ABN RXN-ANASTOM/GRAFT 07/30/2013 [facility] ANASTOMOSIS BYPASS OR 11:59:00 PM CDT GRAFT WITH NATURAL OR ARTIFICIAL TISSUES USED IMPLANT CAUSING ABNORMAL PATIENT REACTION V58.69 LONG-TERM (CURRENT) USE LONG-TERM USE MEDS NEC 07/30/2013 [facility] OF OTHER MEDICATIONS 11:59:00 PM CDT V58.65 LONG-TERM (CURRENT) USE LONG-TERM STEROID USE 07/30/2013 [facility] OF STEROIDS 11:59:00 PM CDT 530.81 ESOPHAGEAL REFLUX ESOPHAGEAL REFLUX 07/30/2013 [facility] 11:59:00 PM CDT 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 07/30/2013 [facility] TRANSPLANT STATUS 11:59:00 PM CDT 585.6 END STAGE RENAL DISEASE ESRD 07/30/2013 [facility] 11:59:00 PM CDT 403.91 HYPERTENSIVE CHRONIC HTN CKD NOS V-ESRD 07/30/2013 [facility] KIDNEY DISEASE 11:59:00 PM CDT UNSPECIFIED WITH CHRONIC KIDNEY DISEASE STAGE V OR END STAGE RENAL DISEASE 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 07/30/2013 [facility] ACQUIRED 11:59:00 PM CDT 996.73 OTHER COMPLICATIONS DUE COMP D/T RENAL DIALY 07/30/2013 [facility] TO RENAL DIALYSIS DEVICE DEV 11:59:00 PM CDT IMPLANT AND GRAFT 996.73 OTHER COMPLICATIONS DUE COMP D/T RENAL DIALY 07/30/2013 [facility] TO RENAL DIALYSIS DEVICE DEV 12:00:00 AM CDT IMPLANT AND GRAFT V68.9 ENCOUNTERS FOR ADMIN ENCOUNTER NOS 06/21/2013 [facility] UNSPECIFIED 08:15:00 AM CDT ADMINISTRATIVE PURPOSE V68.9 ENCOUNTERS FOR ADMIN ENCOUNTER NOS 06/21/2013 [facility] UNSPECIFIED 08:15:00 AM CDT ADMINISTRATIVE PURPOSE 996.73 OTHER COMPLICATIONS DUE COMP D/T RENAL DIALY 06/11/2013 [facility] TO RENAL DIALYSIS DEVICE DEV 03:45:00 PM CDT IMPLANT AND GRAFT 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 06/11/2013 [facility] UPPER EXTREMITY ANEURYSM 03:45:00 PM CDT 403.91 HYPERTENSIVE CHRONIC HTN CKD NOS V-ESRD 06/11/2013 [facility] KIDNEY DISEASE 03:45:00 PM CDT UNSPECIFIED WITH CHRONIC KIDNEY DISEASE STAGE V OR END STAGE RENAL DISEASE 585.6 END STAGE RENAL DISEASE ESRD 06/11/2013 [facility] 03:45:00 PM CDT E878.2 SURGICAL OPERATION WITH ABN RXN-ANASTOM/GRAFT 06/11/2013 [facility] ANASTOMOSIS BYPASS OR 03:45:00 PM CDT GRAFT WITH NATURAL OR ARTIFICIAL TISSUES USED IMPLANT CAUSING ABNORMAL PATIENT REACTION E849.0 HOME ACCIDENTS HOME ACCIDENTS 06/11/2013 [facility] 03:45:00 PM CDT 530.81 ESOPHAGEAL REFLUX ESOPHAGEAL REFLUX 06/11/2013 [facility] 03:45:00 PM CDT 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 06/11/2013 [facility] TRANSPLANT STATUS 03:45:00 PM CDT 996.73 OTHER COMPLICATIONS DUE COMP D/T RENAL DIALY 06/10/2013 [facility] TO RENAL DIALYSIS DEVICE DEV 10:45:00 AM CDT IMPLANT AND GRAFT 996.81 COMPLICATIONS OF COMP KIDNEY TRANSPLANT 06/02/2013 [facility] TRANSPLANTED KIDNEY 02:25:00 PM CDT 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 06/02/2013 [facility] 02:25:00 PM CDT E878.0 SURGICAL OPERATION WITH ABN RXN-ORG TRANSPLANT 06/02/2013 [facility] TRANSPLANT OF WHOLE 02:25:00 PM CDT ORGAN CAUSING ABNORMAL PATIENT REACTION OR LATER COMPLICATION WITHOUT MISADVENTURE AT TIME OF OPERATION 996.81 COMPLICATIONS OF COMP KIDNEY TRANSPLANT 06/02/2013 [facility] TRANSPLANTED KIDNEY 09:13:00 AM CDT 996.81 COMPLICATIONS OF COMP KIDNEY TRANSPLANT 05/12/2013 [facility] TRANSPLANTED KIDNEY 02:28:00 PM CDT 996.81 COMPLICATIONS OF COMP KIDNEY TRANSPLANT 05/12/2013 [facility] TRANSPLANTED KIDNEY 10:24:00 AM CDT 996.81 COMPLICATIONS OF COMP KIDNEY TRANSPLANT 04/21/2013 [facility] TRANSPLANTED KIDNEY 03:35:00 PM CDT E878.0 SURGICAL OPERATION WITH ABN RXN-ORG TRANSPLANT 04/21/2013 [facility] TRANSPLANT OF WHOLE 03:35:00 PM CDT ORGAN CAUSING ABNORMAL PATIENT REACTION OR LATER COMPLICATION WITHOUT MISADVENTURE AT TIME OF OPERATION 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 04/21/2013 [facility] 03:35:00 PM CDT 996.81 COMPLICATIONS OF COMP KIDNEY TRANSPLANT 04/21/2013 [facility] TRANSPLANTED KIDNEY 10:42:00 AM CDT 276.69 FLUID OVERLOAD NEC FLUID OVERLOAD NEC 03/28/2013 [facility] 10:40:00 PM CDT 585.6 END STAGE RENAL DISEASE ESRD 03/28/2013 [facility] 10:40:00 PM CDT V45.11 RENAL DIALYSIS STATUS DIALYSIS STATUS 03/28/2013 [facility] 10:40:00 PM CDT V15.81 PERSONAL HISTORY OF HX NONCOMPLIANCE MED TX 03/28/2013 [facility] NONCOMPLIANCE WITH 10:40:00 PM CDT MEDICAL TREATMENT PRESENTING HAZARDS TO HEALTH 585.6 END STAGE RENAL DISEASE ESRD 03/24/2013 [facility] 12:20:00 PM CDT 276.69 FLUID OVERLOAD NEC FLUID OVERLOAD NEC 03/03/2013 [facility] 08:10:00 AM CDT 585.6 END STAGE RENAL DISEASE END STAGE RENAL DISEASE 03/03/2013 [facility] 08:10:00 AM CDT 403.91 HYPERTENSIVE CHRONIC HYP KID NOS W CR KID V 03/03/2013 [facility] KIDNEY DISEASE 08:10:00 AM CDT UNSPECIFIED WITH CHRONIC KIDNEY DISEASE STAGE V OR END STAGE RENAL DISEASE V45.12 NONCOMPLIANCE WITH RENAL NONCMPLNT W RENAL 03/03/2013 [facility] DIALYSIS DIALYS 08:10:00 AM CDT V45.11 RENAL DIALYSIS STATUS RENAL DIALYSIS STATUS 03/03/2013 [facility] 08:10:00 AM CDT 276.69 FLUID OVERLOAD NEC FLUID OVERLOAD NEC 03/01/2013 [facility] 12:47:00 PM CDT 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 01/15/2013 [facility] ACQUIRED 12:00:00 AM LOGGING ENGINEER 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 01/15/2013 [facility] ACQUIRED 12:00:00 AM LOGGING ENGINEER 585.6 END STAGE RENAL DISEASE ESRD 01/15/2013 [facility] 12:00:00 AM LOGGING ENGINEER 403.91 HYPERTENSIVE CHRONIC HTN CKD NOS V-ESRD 01/15/2013 [facility] KIDNEY DISEASE 12:00:00 AM LOGGING ENGINEER UNSPECIFIED WITH CHRONIC KIDNEY DISEASE STAGE V OR END STAGE RENAL DISEASE 530.81 ESOPHAGEAL REFLUX ESOPHAGEAL REFLUX 01/15/2013 [facility] 12:00:00 AM LOGGING ENGINEER V45.11 RENAL DIALYSIS STATUS DIALYSIS STATUS 01/15/2013 [facility] 12:00:00 AM LOGGING ENGINEER V58.69 LONG-TERM (CURRENT) USE LONG-TERM USE MEDS NEC 01/15/2013 [facility] OF OTHER MEDICATIONS 12:00:00 AM LOGGING ENGINEER 996.73 OTHER COMPLICATIONS DUE COMP D/T RENAL DIALY 07/09/2012 [facility] TO RENAL DIALYSIS DEVICE DEV 08:00:00 AM CDT IMPLANT AND GRAFT 996.73 OTHER COMPLICATIONS DUE COMP D/T RENAL DIALY 07/09/2012 [facility] TO RENAL DIALYSIS DEVICE DEV 08:00:00 AM CDT IMPLANT AND GRAFT 585.6 END STAGE RENAL DISEASE ESRD 07/09/2012 [facility] 08:00:00 AM CDT 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 07/09/2012 [facility] UPPER EXTREMITY ANEURYSM 08:00:00 AM CDT V45.11 RENAL DIALYSIS STATUS DIALYSIS STATUS 07/09/2012 [facility] 08:00:00 AM CDT E878.2 SURGICAL OPERATION WITH ABN RXN-ANASTOM/GRAFT 07/09/2012 [facility] ANASTOMOSIS BYPASS OR 08:00:00 AM CDT GRAFT WITH NATURAL OR ARTIFICIAL TISSUES USED IMPLANT CAUSING ABNORMAL PATIENT REACTION E849.9 ACCIDENTS OCCURRING IN ACCIDENT IN PLACE NOS 07/09/[address] [facility] [address] 08:00:00 AM CDT V58.69 LONG-TERM (CURRENT) USE LONG-TERM USE MEDS NEC 07/09/2012 [facility] OF OTHER MEDICATIONS 08:00:00 AM CDT 585.6 END STAGE RENAL DISEASE END STAGE RENAL DISEASE [facility] 403.91 HYPERTENSIVE CHRONIC HYP KID NOS W CR KID V [facility] KIDNEY DISEASE UNSPECIFIED WITH CHRONIC KIDNEY DISEASE STAGE V OR END STAGE RENAL DISEASE 314.01 ATTENTION DEFICIT ATTN DEFICIT W HYPERACT [facility] DISORDER OF CHILDHOOD WITH HYPERACTIVITY 296.80 BIPOLAR DISORDER BIPOLAR DISORDER NOS DE[facility] UNSPECIFIED 276.69 FLUID OVERLOAD NEC FLUID OVERLOAD NEC [facility] 585.6 END STAGE RENAL DISEASE END STAGE RENAL DISEASE [facility] 276.69 FLUID OVERLOAD NEC FLUID OVERLOAD NEC [facility] 585.6 END STAGE RENAL DISEASE END STAGE RENAL DISEASE DE[facility] 404.92 HYPERTENSIVE HEART AND HY HT/KD NOS ST V W/O [facility] CHRONIC KIDNEY DISEASE HF UNSPECIFIED WITHOUT HEART FAILURE WITH CHRONIC KIDNEY DISEASE STAGE V OR END STAGE RENAL DISEASE 425.8 CARDIOMYOPATHY IN OTHER CARDIOMYOPATH IN OTH [facility] DISEASES CLASSIFIED DIS ELSEWHERE V45.11 RENAL DIALYSIS STATUS RENAL DIALYSIS STATUS [facility] 275.41 HYPOCALCEMIA HYPOCALCEMIA [facility] 314.01 ATTENTION DEFICIT ATTN DEFICIT W HYPERACT [facility] DISORDER OF CHILDHOOD WITH HYPERACTIVITY 296.90 UNSPECIFIED EPISODIC EPISODIC MOOD DISORD [facility] MOOD DISORDER NOS V15.81 PERSONAL HISTORY OF HX OF PAST [facility] NONCOMPLIANCE WITH NONCOMPLIANCE MEDICAL TREATMENT PRESENTING HAZARDS TO HEALTH 403.91 HYPERTENSIVE CHRONIC HYP KID NOS W CR KID V [facility] KIDNEY DISEASE UNSPECIFIED WITH CHRONIC KIDNEY DISEASE STAGE V OR END STAGE RENAL DISEASE 425.4 OTHER PRIMARY PRIM CARDIOMYOPATHY NEC [facility] CARDIOMYOPATHIES V45.11 RENAL DIALYSIS STATUS RENAL DIALYSIS STATUS [facility] 296.80 BIPOLAR DISORDER BIPOLAR DISORDER NOS [facility] UNSPECIFIED 314.01 ATTENTION DEFICIT ATTN DEFICIT W HYPERACT [facility] DISORDER OF CHILDHOOD WITH HYPERACTIVITY V15.81 PERSONAL HISTORY OF HX OF PAST [facility] NONCOMPLIANCE WITH NONCOMPLIANCE MEDICAL TREATMENT PRESENTING HAZARDS TO HEALTH V58.69 LONG-TERM (CURRENT) USE LONG-TERM USE MEDS NEC [facility] OF OTHER MEDICATIONS 429.3 CARDIOMEGALY CARDIOMEGALY DE[facility] 312.9 UNSPECIFIED DISTURBANCE CONDUCT DISTURBANCE NOS [facility] OF CONDUCT V45.11 RENAL DIALYSIS STATUS RENAL DIALYSIS STATUS [facility] V58.65 LONG-TERM (CURRENT) USE LONG-TERM USE STEROIDS [facility] OF STEROIDS 276.69 FLUID OVERLOAD NEC FLUID OVERLOAD NEC DELL 585.6 END STAGE RENAL DISEASE END STAGE RENAL DISEASE DE[facility] 425.4 OTHER PRIMARY PRIM CARDIOMYOPATHY NEC [facility] CARDIOMYOPATHIES 780.52 INSOMNIA UNSPECIFIED INSOMNIA NOS [facility] 311 DEPRESSIVE DISORDER NOT DEPRESSIVE DISORDER NEC [facility] ELSEWHERE CLASSIFIED V61.20 COUNSELING FOR CNSL PRNT-CHLD PROB NOS [facility] PARENT-CHILD PROBLEM UNSPECIFIED V15.81 PERSONAL HISTORY OF HX OF PAST [facility] NONCOMPLIANCE WITH NONCOMPLIANCE MEDICAL TREATMENT PRESENTING HAZARDS TO HEALTH V58.69 LONG-TERM (CURRENT) USE LONG-TERM USE MEDS NEC [facility] OF OTHER MEDICATIONS 276.69 FLUID OVERLOAD NEC FLUID OVERLOAD NEC DE[facility] 585.6 END STAGE RENAL DISEASE END STAGE RENAL DISEASE DE[facility] 425.4 OTHER PRIMARY PRIM CARDIOMYOPATHY NEC [facility] CARDIOMYOPATHIES V45.11 RENAL DIALYSIS STATUS RENAL DIALYSIS STATUS [facility] 312.9 UNSPECIFIED DISTURBANCE CONDUCT DISTURBANCE NOS [facility] OF CONDUCT 276.7 HYPERPOTASSEMIA HYPERPOTASSEMIA [facility] V45.12 NONCOMPLIANCE WITH RENAL NONCMPLNT W RENAL [facility] DIALYSIS DIALYS 309.9 UNSPECIFIED ADJUSTMENT ADJUSTMENT REACTION NOS [facility] REACTION 296.80 BIPOLAR DISORDER BIPOLAR DISORDER NOS [facility] UNSPECIFIED 314.01 ATTENTION DEFICIT ATTN DEFICIT W HYPERACT [facility] DISORDER OF CHILDHOOD WITH HYPERACTIVITY V58.69 LONG-TERM (CURRENT) USE LONG-TERM USE MEDS NEC [facility] OF OTHER MEDICATIONS 276.69 FLUID OVERLOAD NEC FLUID OVERLOAD NEC DELL 585.6 END STAGE RENAL DISEASE END STAGE RENAL DISEASE [facility] Surgeries/Procedures Procedure Date Indications Data Source(s) CLOS LARGE BOWEL BIOPSY 11/29/2013 12:00:00 AM LOGGING ENGINEER [facility] EGD WITH CLOSED BIOPSY 11/29/2013 12:00:00 AM LOGGING ENGINEER [facility] BONE MARROW BIOPSY 11/26/2013 12:00:00 AM LOGGING ENGINEER [facility] ARM VESSEL EXCISION 07/30/2013 12:00:00 AM CDT [facility] VASCULAR SURGERY PROCEDURE 07/30/2013 12:00:00 AM CDT [facility] REMOV BR[facility]O DIALYSIS SHUNT 07/30/2013 12:00:00 AM CDT [facility] AV FISTULA REVISION OPEN 06/10/2013 10:45:00 AM CDT [facility] DOROTHY BRUNO DIALYSIS SHUNT 06/10/2013 10:45:00 AM CDT [facility] INJCT/INF IMMUNOGLOBULIN 06/02/2013 09:13:00 AM CDT [facility] INJCT/INF IMMUNOGLOBULIN 05/12/2013 10:24:00 AM CDT [facility] INJCT/INF IMMUNOGLOBULIN 04/21/2013 10:42:00 AM CDT [facility] HEMODIALYSIS 03/26/2013 12:00:00 AM CDT [facility] HEMODIALYSIS 03/01/2013 12:47:00 PM CDT [facility] CONTRAST ARTERIOGRAM NEC 01/15/2013 12:00:00 AM LOGGING ENGINEER [facility] ACCESS AV DIAL GRFT FOR EVAL 01/15/2013 12:00:00 AM LOGGING ENGINEER [facility] CONTRAST PHLEBOGRAM NEC 01/15/2013 12:00:00 AM LOGGING ENGINEER [facility] REPAIR DEFECT OF ARTERY 07/09/2012 08:00:00 AM CDT [facility] ARM VESSEL RESECT/ANAST 07/09/2012 08:00:00 AM CDT [facility] HEMODIALYSIS 08/21/2011 12:00:00 AM CDT [facility] HEMODIALYSIS 07/24/2011 12:00:00 AM CDT [facility] HEMODIALYSIS 06/04/2011 12:00:00 AM CDT [facility] HEMODIALYSIS 04/01/2011 12:00:00 AM CDT [facility] HEMODIALYSIS 03/20/2011 12:00:00 AM CDT [facility] REMOVAL TUNNELED CV CATH 12/12/2010 12:00:00 AM LOGGING ENGINEER [facility] REMOVAL FB/DEV FROM SKIN 12/12/2010 12:00:00 AM LOGGING ENGINEER [facility]
[2017-08-18] MEDS ORDERED: Ondansetron HCl/PF 4 MG/2 ML Vial ONE (03:03)
[2017-08-18 03:12] LABS: #Lymphocytes 1.4 thou/uL (1.20-3.40); #Monocytes 0.5 thou/uL (0.11-0.59); #Neutrophils 8.2 thou/uL (1.40-6.50); %Eosinophils 0.1 % (0.0-10.0); %Lymphocytes 14.1 % (28.0-48.0); %Monocytes 4.9 % (0.0-4.0); Mean Platelet Volume 8.2 fL (7.4-10.4); White Blood Cell (WBC) Count 10.1 thou/uL (4.8-10.8)
[2017-08-18 03:20] LABS: PTT 32.7 SEC (22.9-36.1); Prothrombin Time 14.3 SEC (12.0-14.7)
[2017-08-18 03:33] LABS: ALT (SGPT) 9 U/L (8-55); AST (SGOT) 13 U/L (5-34); Alkaline Phosphatase 95 U/L (Less than 750); Anion Gap 23 mmol/L (10-20); BUN (Urea Nitrogen) 66 mg/dL (8.9-20.6); Bilirubin, Total 0.4 mg/dL (0.2-1.2); CK (CPK) 122 U/L (30-200); Calc. Creatinine Clearance 0 mL/min (70-130); Calcium 9.5 mg/dL (7.8-10.44); Carbon Dioxide 24 mmol/L (22-29); Chloride 96 mmol/L (98-107); Estimated GFR-MDRD 5; Globulin 3.8 g/dL (2.4-3.5); Magnesium 2.8 mg/dL (1.7-2.2); Protein, Total 8.1 g/dL (6.0-8.3)
[2017-08-18] MEDS ORDERED: Calcium Chloride 1 GM/10 ML Abboject SYRINGE ONE (03:41)
[2017-08-18] MEDS ORDERED: Dextrose 50% Abboject 50 ML SYRINGE ONE (03:41)
[2017-08-18] MEDS ORDERED: Insulin Regular 300 UNITS/3 ML VIAL ONE (03:41)
[2017-08-18] MEDS ORDERED: Ondansetron HCl/PF 4 MG/2 ML Vial IVP PRN (05:01)
[2017-08-18] MEDS ORDERED: Ondansetron ODT 4 MG TAB SL PRN (05:01)
[2017-08-18] MEDS ORDERED: HYDROcodone/Acetaminophen 5/325 mg Tablet PO PRN (05:52)
[2017-08-18] MEDS ORDERED: Acetaminophen 325 MG TAB PO PRN (05:52)
--- NOTE | 2017-08-18 05:52 | PDOC.EVN ---
Event Note - Event Note Event Note: [id number] H&P DICTATED 1. ESRD 2. Hyperkalemia 3. Elevated BP 4. Secondary hyperparathyroidism plan: see orders
[2017-08-18 06:22] LABS: Troponin I 0.017 ng/mL (< 0.028)
--- NOTE | 2017-08-18 07:09 | HP ---
CHIEF COMPLAINT: Bodyaches, nausea and diarrhea. HISTORY OF PRESENT ILLNESS: The patient is a 22-year-old male with past medical history of end-stage renal disease, hypertension, failed kidney transplant, heart murmur, came to the hospital because of bodyaches. The patient is having bodyaches for the past few days, but he says both upper and lower extremities, spasm kind of pain. The patient said anytime he has electrolyte abnormalities he has similar kind of pain. The patient complains of nausea and diarrhea for the past 5 days, for the past 1 week that is up to 4- 5 times a day, denies any fever, denies any chills, denies any cough, denies production, denies any chest pain. Denies any palpations, denies any dizziness. PAST MEDICAL HISTORY: As per HPI. PAST SURGICAL HISTORY: AV fistula placement and failed history of kidney transplant. SOCIAL HISTORY: Denies smoking, denies alcohol, denies any drugs. FAMILY HISTORY: Positive for kidney problems. MEDICATIONS: Reviewed. REVIEW OF SYSTEMS: CONSTITUTIONAL: Denies any fever, denies any chills. HEENT: Vision problems. Ears no change. Nose normal. Denies any neck pain. CARDIOVASCULAR: Denies any chest pain, denies any palpitations. RESPIRATORY: Denies any cough, denies production. GASTROINTESTINAL: Denies nausea, denies vomiting. GENITOURINARY: Denies dysuria. MUSCULOSKELETAL: Diffuse bodyaches. CRANIAL NERVE SYSTEM: Denies syncope, denies lightheadedness. PSYCHIATRIC: Denies anxiety. INTEGUMENT: Denies any rash. All other review of systems are reviewed and are negative. PHYSICAL EXAMINATION: CONSTITUTIONAL/VITAL SIGNS: At the time of H\T\P performed, blood pressure is 113/66, temperature 98.4, heart rate 90, respiration rate 18, pulse ox 98%. GENERAL: The patient appears comfortable. HEENT: Pupils equal, round and reactive. Nose normal. Ears normal. Teeth intact. Tongue is moist. NECK: Supple. No JVD. CARDIOVASCULAR: S1, S2 present, regular rate and rhythm. Positive for murmur. No rubs or gallops. LUNGS: No wheezing, no rhonchi present bilaterally. ABDOMEN: Soft, nontender, no guarding, no organomegaly, no masses felt. MUSCULOSKELETAL: No edema, good range of motion of joints. INTEGUMENTARY: No rashes seen. EXTREMITIES: Positive for AV fistula in the left upper extremity, possible for bruit and thrill. PSYCHIATRIC: Mood appears calm NEUROLOGIC: Cranial nerves intact. Follows commands. Strength intact, sensory intact. LABORATORY DATA: At the time of H\T\P performed; white count 10.1, hemoglobin 13, platelet count is 213. PT 14.3, INR 1.1. BMP: Sodium 137, potassium 6.4, chloride 96, CO2 24, BUN 6, creatinine 6.35, mag 2.8, globulin 3.8. ASSESSMENT AND PLAN: The patient is a 22-year-old male. 1. End-stage renal disease plus hyperkalemia. Plan to consult Nephrology for patient. Plan to start dialysis due to hyperkalemia and due to EKG changes and monitor the patient closely. 2. History of hypertension. Monitor blood pressure. Continue home blood pressure meds. 3. History of failed kidney transplant. Continue p.o. prednisone daily. 4. Secondary hyperparathyroidism. Monito phosphorus level. Plan renal diet. The case was discussed in detail with the patient. Patient is full code. MTDD
[2017-08-18 07:11] VITALS: TEMP 97.7
[2017-08-18] MEDS ORDERED: predniSONE 20 MG TAB PO SCH (08:00)
[2017-08-18] MEDS ORDERED: predniSONE 5 MG TAB PO SCH (08:00)
[2017-08-18] MEDS ORDERED: FERRIC CITRATE 630 MG PO SCH (08:00)
--- NOTE | 2017-08-18 08:04 | CON ---
DATE OF CONSULTATION: 08/18/2017 CONSULTING PHYSICIAN: Dr. Felix REASON FOR CONSULTATION: Diarrhea. HISTORY OF PRESENT ILLNESS: This is a 22-year-old male with history of end-stage renal disease, hyp ertension who came to the hospital with bodyaches and tingling and was found to have hyperkalemia, p otassium was around 6.4. No chest pain or palpitation. The patient was seen during dialysis today and he is tolerating well. PAST MEDICAL HISTORY: Positive for hypertension, end-stage renal disease, kidney transplant failed. PAST SURGICAL HISTORY: AV fistula placement. HOME MEDICATIONS: Nexium, sertraline, , amlodipine, prednisone, metoprolol. ALLERGIES: HYDROCODONE. SOCIAL HISTORY: No smoking, alcohol or illicit drug abuse. FAMILY HISTORY: Positive for kidney disease. REVIEW OF SYSTEMS: Noncontributory. PHYSICAL EXAMINATION: GENERAL: This is an obese male in no apparent distress. VITAL SIGNS: Temperature 97.7, pulse 70, respirations 18, blood pressure 119/55. HEENT: Atraumatic, normocephalic. Oral mucosa is moist. NECK: Supple. HEART: S1, S2 heard. Rate and rhythm regular. RESPIRATORY: Clear. ABDOMEN: Soft. MUSCULOSKELETAL: No tenderness noted. DERMATOLOGIC: No skin rash. NEUROLOGIC: Alert, awake. PSYCHIATRIC: Mood and affect normal. LABORATORY: Potassium 6.4, BUN 60, creatinine 16.0. ASSESSMENT AND PLAN: 1. End-stage renal disease on hemodialysis. Plan is to have emergent dialysis. The patient has hy perkalemia. The patient was seen and evaluated during dialysis, tolerating well. We will use 2K b ath. 2. Hyperkalemia. We will use 2K bath, limit potassium in the diet. 3. Anemia, stable hemoglobin. 4. Edema, controlled. 5. Hypertension. Blood pressure is stable. 6. Fluid overload, remove fluid with dialysis as tolerated. The patient was advised to limit potassium intake and we will continue to follow.
[2017-08-18] MEDS ORDERED: Metoprolol Tartrate 100 MG TAB PO SCH (09:00)
[2017-08-18] MEDS ORDERED: Folic Acid/Vit B Comp W-C PO SCH (09:00)
[2017-08-18] MEDS: Heparin 5,000 UNITS/ML VIAL SC SCH ×2 (12:07→15:36)
[2017-08-18 12:40] LABS: Troponin I Less than 0.010 ng/mL (< 0.028)
[2017-08-18 13:24] VITALS: BP 110/65
--- NOTE | 2017-08-18 23:43 | DIS ---
DATE OF ADMISSION: 08/18/2017 DATE OF DISCHARGE: 08/18/2017 CONSULTANTS: Nephrology. DIAGNOSES ON DISCHARGE: 1. End-stage renal disease with hyperkalemia, status post hemodialysis, resolved. 2. History of hypertension, stable. 3. History of failed kidney transplant. 4. History of secondary hyperparathyroidism. 5. The patient also has anemia. DISCHARGE MEDICATIONS: The patient's discharge medications are the same as admit medications. DISPOSITION: To home. BRIEF HOSPITAL COURSE: A 22-year-old pleasant gentleman came in with a history of end-stage renal d isease, hypertension, came into the hospital with body aches and tingling, was found to have a potas sium of 6.4. Please refer to the admitting physician's H\T\P for further details. The patient was admitted for that, the patient had dialysis in this hospital stay. Nephrology evaluated the patient . He symptomatically improved and they said that the patient could be discharged home with outpatie nt followup with them. Patient's stay in the hospital was uneventful. PHYSICAL EXAMINATION: VITAL SIGNS: At the time of discharge, the patient's temperature was afebrile, pulse of 70, respira tions 18, blood pressure was 119/55. GENERAL: The patient was lying in bed, in no apparent distress. HEENT: Atraumatic and normocephalic. Pupils equally round and react to light. Extraocular movemen ts intact. Mucous membranes moist. NECK: Supple. No JVD. CHEST: Breath sounds. There are no rales or rhonchi. HEART: S1, S2, no murmurs or gallops. ABDOMEN: Soft. EXTREMITIES: No cyanosis, clubbing or edema. Distal pulses present. NEUROLOGIC: Alert, awake, oriented. No cranial deficits. No sensorimotor deficits. The patient right now is medically stable to be discharged. Discussed with Renal and they are okay with sending the patient home. The patient right now is asked to follow up with PCP and Nephrology as an outpatient, come back to the emergency room in case symptoms recur. Total time for this discharge took 35 minutes.
== END 2017-08-18 17:00 | disposition home or self-care (01) ==
LOC: ERS 02:22 → 2SW 04:35
PROVIDERS: ADMIT Internal Medicine; ATTEND Internal Medicine
DX: I12.0 Hypertensive chronic kidney disease with stage 5 chronic kidney disease or end stage renal disease (principal); T86.12 Kidney transplant failure; N25.81 Secondary hyperparathyroidism of renal origin; D64.9 Anemia, unspecified; Z88.5 Allergy status to narcotic agent; R60.9 Edema, unspecified; Z79.52 Long term (current) use of systemic steroids; Z79.899 Other long term (current) drug therapy; Z88.1 Allergy status to other antibiotic agents
CPT/HCPCS: 36415; 36416; 80053; 82550; 83735; 84484; 85025; 85610; 85730; 87340; 90935; 93005; 94760; 96372; 96374; 96375; A4216; G0257; G0378; J1644; J1815; J2270; J2405; J7506

== ENCOUNTER 2017-08-19 23:33 | Observation (INO) | payer OTHER ==
--- OUTSIDE RECORDS SUMMARY | 2017-08-19 23:35 | XMS | Clinical Summary ---
:1995 Author Organization [facility] Address [address] [place] [address] Phone Care Team Providers Name Role Phone [...] with meals. ferrous Take 1 capsule Active [id number] by mouth every C-folic acid morning before [...] disease 08/08/2017 ESRD (end stage renal disease) ([facility]) 08/08/2017 S/p cadaver renal transplant 08/08/2017 Kidney transplant failure 08/08/2017 Secondary hypertension due to renal disease 08/08/2017 Obesity (BMI 30-39.9) 08/08/2017 Secondary hyperparathyroidism of renal origin ([facility]) 08/08/2017 Encounters Date Type Specialty Care Team Description 08/19/2017 Telephone Transplant Belinda Rivera Follow-up (Ms. Rod called on behalf of her grandson Erin to f/u on ther MRB recommendations she could not remember the name of the vaccination the patient needed. Per Ms. Rod her grandsonis on the way to the doctors. She's aware that the patient will need a varicella vaccination and ABO lab draw. Per Ms. Rod her grandson did not submit the occult blood samples and she's aware I will mail out another kit for the patient to submit) 08/12/2017 Scanned Document 08/11/2017 Abstract Transplant Cydney Ojeda RN 08/11/2017 Telephone Transplant Cydney Ojeda RN Committee Review 08/07/2017 Evaluation Transplant Isabel Preciado MD 08/07/2017 Evaluation Transplant Isabel Preciado Pre-transplant evaluation MD Uday for chronic kidney disease (Primary Dx);ESRD (end stage renal disease) ([facility]);S/p cadaver renal transplant;Kidney transplant failure;Secondary hypertension due to renal disease;Obesity (BMI 30-39.9);Secondary hyperparathyroidism of renal origin ([facility]) 08/07/2017 Hospital Encounter Radiology Isabel Preciado MD 08/07/2017 Hospital Encounter Cardiology Isabel Preciado Pre- transplant evaluation MD Uday for chronic kidney disease;ESRD (end stage renal disease) on dialysis ([facility]) 08/07/2017 Orders Only Lab Isabel Preciado Pre-transplant evaluation MD Uday for chronic kidney disease;ESRD (end stage renal disease) on dialysis ([facility]) 08/07/2017 Committee Review Transplant Belinda Rivera 08/07/2017 Orders Only Transplant Isabel Preciado Pre-transplant evaluation MD Uday for chronic kidney disease;ESRD (end stage renal disease) on dialysis ([facility]) 08/05/2017 Telephone Transplant Belinda Rivera Appointment (Spoke [...] pelvis (08/07/2017 11:03 AM) Specimen Performing Laboratory GE RIS Narrative Addendum Begins REPORT STATUS:A Addendum I have reviewed the nonvascular findings and concur with Dr. Guy's report. Signed: Roro Negron MD Report Verified Date/Time:08/07/2017 14:22:50 Reading Location: [place] [address] Angio Body Reading Room Addendum Ends FINAL REPORT CT angiography of the abdominal aorta and pelvic arteries, 07 August 2017 INDICATION: This is a 22 year old male with end-stage renal disease, presents for pretransplant assessment..This study is performed in an attempt to avoid an invasive procedure. TECHNIQUE: Spiral acquisition before and during intravenous contrast administration using a [employer] multidetector CT scanner. Images were obtained before [...] are widely patent, with no atherosclerosis identified players club representative dimensions of the left and the [...] veins are patent with no venous thrombosis identified.Implementation Analyst dimensions of the left and the right [...] no arterial stenosis or venous thrombosis identified. Implementation Analyst dimensions of the left and the right external iliac arteries and veins are as described above. Patient is post renal transplantation, and the transplant vasculature is to the right external iliac artery and vein as described above. 2. Patent mesenteric arteries. Patent renal arteries. 3.Other findings as described above. 4.An addendum will be dictated regarding the non-vascular findings by the Assorter Laundry Radiologist. Signed: Sebastian Guy MD Report Verified Date/Time:08/07/2017 12:37:23 Reading Location: [place] [address] Cardiology MRI Procedure Note Interface, External Ris In - 08/07/2017 2:24 PM CDT Addendum Begins REPORT STATUS:A Addendum I have reviewed the nonvascular findings and concur with Dr. Guy's report. Signed: Roro Negron MD Report Verified Date/Time: 08/07/2017 14:22:50 Reading Location: [facility] [address] Angio Body Reading Room Addendum Ends FINAL REPORT CT angiography of the abdominal aorta and pelvic arteries, 07 August 2017 INDICATION: This is a 22 year old male with end-stage renal disease, presents for pretransplant assessment.. This study is performed in an attempt to avoid an invasive procedure. TECHNIQUE: Spiral acquisition before and during intravenous contrast administration using a [employer] multidetector CT scanner. Images were obtained before [...] are widely patent, with no atherosclerosis identified players club representative dimensions of the left and the [...] are patent with no venous thrombosis identified. Implementation Analyst dimensions of the left and the right [...] no arterial stenosis or venous thrombosis identified. Implementation Analyst dimensions of the left and the right external iliac arteries and veins are as described above. Patient is post renal transplantation, and the transplant vasculature is to the right external iliac artery and vein as described above. 2. Patent mesenteric arteries. Patent renal arteries. 3. Other findings as described above. 4. An addendum will be dictated regarding the non-vascular findings by the Assorter Laundry Radiologist. 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 [facility] Interpreting Beckie Francis MD Physician Procedure Type [...] Study 08/07/2017 JERALD Gender Male Visit Number [id number] Race Black Room Number Number Date of 1995 Referring Ozzy Hall Physician Uday Age 22 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(s) 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 [facility] Interpreting Beckie Francis MD Physician Procedure Type [...] >20 Scan Result Specimen Performing Laboratory Blood [facility] [address] [facility], [address] [place] [address] PT/aPTT (08/07/2017 6:53 AM) Component Value Ref Range Protime 14.1 11.7 - 14.7 seconds INR 1.1 <=5.9 PTT 33.2 22.5 - 36.0 seconds Specimen Performing Laboratory Blood [address] [address] Narrative RECOMMENDED COUMADIN/WARFARIN INR THERAPY RANGES STANDARD DOSE: 2.0 - 3.0 Includes: PROPHYLAXIS for venous thrombosis, systemic embolization; TREATMENT for venous thrombosis and/or pulmonary embolus. HIGH RISK: Target INR is 2.5-3.5 for patients with mechanical heart valves. HIV-1 Antigen with HIV-1/2 Antibody (08/07/2017 6:53 AM) Component Value Ref Range HIV-1 Antigen with HIV 1&2 Antibody Nonreactive Nonreactive Specimen Performing Laboratory Blood [address] [address] CBC with platelet count + automated diff [...] 0 - 1 % Specimen Performing Laboratory Blood [address] [address] Hepatitis C Antibody (08/07/2017 6:53 AM) Component Value Ref Range Hepatitis C Ab Nonreactive Nonreactive Specimen Performing Laboratory Blood [address] [address] Cytomegalovirus antibody, IgM (08/07/2017 6:53 AM) Component Value Ref Range CMV IgM Negative Specimen Performing Laboratory Blood [address] [address] Hepatitis B core antibody, IgM (08/07/2017 6:53 AM) Component Value Ref Range Hep B C IgM Nonreactive Nonreactive Specimen Performing Laboratory Blood [address] [address] EBV-VCA antibody, IgM (08/07/2017 6:53 AM) Component Value Ref Range EBV VCA IgM Negative Specimen Performing Laboratory Blood [address] [address] EBV-VCA antibody, IgG (08/07/2017 6:53 AM) Component Value Ref Range EBV VCA IgG Positive Specimen Performing Laboratory Blood [address] [address] RPR (08/07/2017 6:53 AM) Component Value Ref Range RPR Nonreactive Nonreactive Specimen Performing Laboratory Blood [address] [address] Hepatitis B surface antibody (08/07/2017 6:53 AM) Component Value Ref Range Hep B S Ab 366.6(H) <8.0 mIU/mL Specimen Performing Laboratory Blood [address] [address] Hepatitis B surface antigen (08/07/2017 6:53 AM) Component Value Ref Range hepatitis B Surface Ag Nonreactive Nonreactive Specimen Performing Laboratory [address] [address] Cytomegalovirus antibody, IgG (08/07/2017 6:53 AM) Component Value Ref Range CMV IgG Positive Specimen Performing Laboratory Blood [address] [address] CBC w/PLT Count& Auto Differential (08/07/2017 6:53 AM) Specimen Performing Laboratory Blood Narrative The following orders were created for panel order CBC w/PLT Count & Auto Differential. Procedure Abnormality Status --------- ------ CBC with platelet count ...[[id number]]AbnormalFinal result Please view results for these tests on the individual orders. Direct AHG (NATALYA)/Direct Nona (08/07/2017 6:53 AM) Component Value Ref Range Direct [facility]-IGG NEGATIVE Direct [facility]-C3B, C3D NEGATVIE Specimen Performing Laboratory [address] [address] Varicella Zoster Antibody, IgG (08/07/2017 6:53 AM) Component Value Ref Range Varicella IgG 0.4 Al Specimen Performing Laboratory [address] [address] Narrative VARICELLA ZOSTER RESULT INTERPRETATIONS: <=0.8 AlNonreactive:Presumed non-immune to VZV 0.9-1.0 AlEquivocal >=1.1 AlReactive:Presumed immune to VZV Uric Acid (08/07/2017 6:53 AM) Component Value Ref Range Uric Acid 3.0 2.6 - 7.2 mg/dL Specimen Performing Laboratory [address] [address] Phosphorus (08/07/2017 6:53 AM) Component Value Ref Range Phosphorus 3.9 2.3 - 4.7 mg/dL Specimen Performing Laboratory [address] [address] PTH, Intact (08/07/2017 6:53 AM) Component Value Ref Range PTH 647.2(H) 8.5 - 72.5 pg/mL Specimen Performing Laboratory [address] [address] Lactate Dehydrogenase (LDH) (08/07/2017 6:53 AM) Component Value Ref Range LDH 165 125 - 220 U/L Specimen Performing Laboratory Blood [address] [address] Hemoglobin A1c (08/07/2017 6:53 AM) Component Value Ref Range Hemoglobin A1C 4.6 4.3 - 6.1 % Specimen Performing Laboratory [address] [address] Gamma Glutamyl Transferase (GGT) (08/07/2017 6:53 AM) Component Value Ref Range GGT 29 9 - 64 U/L Specimen Performing Laboratory [address] [address] Lipid panel (08/07/2017 6:53 AM) Component Value Ref Range Triglycerides 98 mg/dL Cholesterol 129 mg/dL HDL 40 mg/dL LDL Calculated 69 mg/dL Specimen Performing Laboratory Blood [address] [address] Narrative Triglyceride Reference Range: Low Risk <150 [id number] High Risk 200-499 Very High Risk>=500 Cholesterol Reference Range: Low Risk <200 [id number] High Risk>240 HDL Cholesterol Reference Range: Low Risk >=60 High Risk <40 LDL Cholesterol Reference Range: Optimal<100 Near Nzbyghy960-110 [id number] Very High >=190 Comprehensive metabolic panel (08/07/2017 [...] FOR DIALYSIS PATIENTS. Specimen Performing Laboratory Blood [address] [address] from Last 3 Months
--- OUTSIDE RECORDS SUMMARY | 2017-08-19 23:35 | XMS ---
:1995 Author Organization [facility] Care Team Providers Name Role Phone FERRULER BLU Unavailable Unavailable FERRULER, BLU Unavailable Unavailable FERRULER, BLU Unavailable Unavailable FERRULER, BLU Unavailable Unavailable FERRULER, BLU Unavailable Unavailable FERRULER, BLU Unavailable Unavailable RASTAFARIAN, NASIR Unavailable Unavailable RASTAFARIAN, NASIR Unavailable Unavailable RASTAFARIAN, NASIR Unavailable Unavailable RASTAFARIAN, NASIR Unavailable Unavailable RASTAFARIAN, NASIR Unavailable Unavailable RASTAFARIAN, NASIR Unavailable Unavailable RASTAFARIAN, NASIR Unavailable Unavailable RASTAFARIAN, NASIR Unavailable Unavailable RASTAFARIAN, NASIR Unavailable Unavailable RASTAFARIAN, NASIR Unavailable Unavailable MOLINA, PEYMAN Unavailable Unavailable [...] Unavailable Unavailable MINCHER, CARISSA Unavailable Unavailable MINCHER, CARISAS Unavailable Unavailable MINCHER, CARISSA Unavailable Unavailable SHARA, YASMANI Unavailable Unavailable SHARA, YASMANI Unavailable Unavailable SHARA, YASMANI Unavailable Unavailable SHARA, YASMANI Unavailable Unavailable SHARA, YASMANI Unavailable Unavailable SHARA, YASMANI Unavailable Unavailable SHARA, YASMANI Unavailable Unavailable SHARA, YASMANI Unavailable Unavailable SHARA, YASMANI Unavailable Unavailable SHARA, YASMANI Unavailable Unavailable Encounters Encounter Providers Location Date Indications Data Source(s) Outpatient Attender: PEYMAN 12/15/2013 [facility] MOLINA MDAdmitter: 11:33:00 AM SILK PRINTER PEYMAN MOLINA MD [facility] Inpatient Attender: BLU LOPEZ 11/25/2013 DELA[facility] MDAdmitter: CARISSA 10:37:00 AM SILK PRINTER ANNABEL FERREIRA - 12/08/2013 03:50:00 PM SILK PRINTER Outpatient Attender: YASMANI OLMEDO 06/21/2013 RADHA MDAdmitter: YASMANI 08:15:00 AM CDT SHARA FERREIRA [facility] Outpatient Attender: YASMANI OLMEDO 06/02/2013 [...] - 03/03/2013 08:10:00 AM CDT Outpatient Att[facility]: [facility]: [facility] SILK PR[facility] Outpatient Attender: [facility] AM [facility] Inpatient Attender: YASMANI OLMEDO 08/19/2011 [...] MIKAELA CARY 12/12/2010 RADHA FERREIRA 12:11:00 PM SILK PRINTER Insurance Providers Payer name Policy type Policy ID Covered Covered green party's Policy Plan / Coverage green party ID relationship to Linda Information type linda [place] [id number]_IN_[id number] [place] [id number]_IN_[id number] MEDICAID Medicaid [id number]_IN_[id number] [place] NOT_[id number] 326_IN_1 MEDICAID Medicaid [id number]_IN_[id number] [place] NOT_[id number]_IN_1 [place] NOT_[id number]_IN_1 [place] NOT_[id number] 640_IN_1 [place] Medicaid NOT_VALID_[id number] 514_IN_1 [facility] Medicaid NOT_VALID_[id number] 088_IN_[id number] [employer] Medicaid MC [id number] STAR 524_IN_1 [employer] Medicaid [id number] STAR 341_IN_1 Medicaid MC NOT_VALID_0000 [id number] Medicaid MC NOT_VALID_0000 [id number] Medicaid MC NOT_VALID_0000 [id number] Medicaid MC NOT_VALID_0000 [id number] Medicaid MC NOT_VALID_0000 [id number] Medicaid MC NOT_VALID_0000 [id number] Problems, Conditions, and Diagnoses Code Display Name Description Effective Dates Data Source(s) 284.19 OTHER PANCYTOPENIA PANCYTOPENIA NEC 12/15/2013 [facility] 11:59:00 PM SILK PRINTER 558.9 OTHER AND UNSPECIFIED NONINF GASTROENT 12/15/2013 [facility] NONINFECTIOUS NEC&NOS 11:59:00 PM SILK PRINTER GASTROENTERITIS AND COLITIS 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 12/15/2013 [facility] TRANSPLANT STATUS 11:59:00 PM SILK PRINTER 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 12/15/2013 [facility] 11:59:00 PM SILK PRINTER 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 12/15/2013 [facility] 11:33:00 AM SILK PRINTER 008.69 ENTERITIS DUE TO OTHER VIRAL ENTERITIS NEC 12/08/2013 [facility] VIRAL ENTERITIS 03:50:00 PM SILK PRINTER 403.91 HYPERTENSIVE CHRONIC HTN CKD NOS V-ESRD 12/08/2013 [facility] KIDNEY DISEASE 03:50:00 PM SILK PRINTER UNSPECIFIED WITH CHRONIC KIDNEY DISEASE STAGE V OR END STAGE RENAL DISEASE 425.4 OTHER PRIMARY PRIM CARDIOMYOPATHY NEC 12/08/2013 [facility] CARDIOMYOPATHIES 03:50:00 PM SILK PRINTER 288.00 NEUTROPENIA UNSPECIFIED NEUTROPENIA NOS 12/08/2013 [facility] 03:50:00 PM SILK PRINTER 284.19 OTHER PANCYTOPENIA PANCYTOPENIA NEC 12/08/2013 [facility] 03:50:00 PM SILK PRINTER 585.6 END STAGE RENAL DISEASE ESRD 12/08/2013 [facility] 03:50:00 PM SILK PRINTER 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 12/08/2013 [facility] 03:50:00 PM SILK PRINTER 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 12/08/2013 [facility] TRANSPLANT STATUS 03:50:00 PM SILK PRINTER 532.90 DUODENAL ULCER DU NOS W/O COMP 12/08/2013 [facility] UNSPECIFIED ACUTE OR 03:50:00 PM SILK PRINTER CHRONIC WITHOUT HEMORRHAGE OR PERFORATION WITHOUT OBSTRUCTION 429.3 CARDIOMEGALY CARDIOMEGALY 12/08/2013 [facility] 03:50:00 PM SILK PRINTER 783.21 LOSS OF WEIGHT LOSS OF WEIGHT 11/25/2013 [facility] 10:37:00 AM SILK PRINTER V12.61 PERSONAL HISTORY OF HX PNEUMONIA 07/30/2013 [...] AV FISTULA 01/15/2013 [facility] ACQUIRED 12:00:00 AM SILK PRINTER 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 01/15/2013 [facility] ACQUIRED 12:00:00 AM SILK PRINTER 585.6 END STAGE RENAL DISEASE ESRD 01/15/2013 [facility] 12:00:00 AM SILK PRINTER 403.91 HYPERTENSIVE CHRONIC HTN CKD NOS V-ESRD 01/15/2013 [facility] KIDNEY DISEASE 12:00:00 AM SILK PRINTER UNSPECIFIED WITH CHRONIC KIDNEY DISEASE STAGE V OR END STAGE RENAL DISEASE 530.81 ESOPHAGEAL REFLUX ESOPHAGEAL REFLUX 01/15/2013 [facility] 12:00:00 AM SILK PRINTER V45.11 RENAL DIALYSIS STATUS DIALYSIS STATUS 01/15/2013 [facility] 12:00:00 AM SILK PRINTER V58.69 LONG-TERM (CURRENT) USE LONG-TERM USE MEDS NEC 01/15/2013 [facility] OF OTHER MEDICATIONS 12:00:00 AM SILK PRINTER 996.73 OTHER COMPLICATIONS DUE COMP D/T RENAL [...] CLOS LARGE BOWEL BIOPSY 11/29/2013 12:00:00 AM SILK PRINTER [facility] EGD WITH CLOSED BIOPSY 11/29/2013 12:00:00 AM SILK PRINTER [facility] BONE MARROW BIOPSY 11/26/2013 12:00:00 AM SILK PRINTER [facility] ARM VESSEL EXCISION 07/30/2013 12:00:00 AM [...] [facility] CONTRAST ARTERIOGRAM NEC 01/15/2013 12:00:00 AM SILK PRINTER [facility] ACCESS AV DIAL GRFT FOR EVAL 01/15/2013 12:00:00 AM SILK PRINTER [facility] CONTRAST PHLEBOGRAM NEC 01/15/2013 12:00:00 AM SILK PRINTER [facility] REPAIR DEFECT OF ARTERY 07/09/2012 08:00:00 AM CDT [facility] ARM VESSEL RESECT/ANAST 07/09/2012 08:00:00 AM CDT [facility] HEMODIALYSIS 08/21/2011 12:00:00 AM CDT [facility] HEMODIALYSIS 07/24/2011 12:00:00 AM CDT [facility] HEMODIALYSIS 06/04/2011 12:00:00 AM CDT [facility] HEMODIALYSIS 04/01/2011 12:00:00 AM CDT [facility] HEMODIALYSIS 03/20/2011 12:00:00 AM CDT [facility] REMOVAL TUNNELED CV CATH 12/12/2010 12:00:00 AM SILK PRINTER [facility] REMOVAL FB/DEV FROM SKIN 12/12/2010 12:00:00 AM SILK PRINTER [facility]
[2017-08-20 00:39] LABS: #Lymphocytes 1.3 thou/uL (1.20-3.40); #Monocytes 0.4 thou/uL (0.11-0.59); #Neutrophils 5.9 thou/uL (1.40-6.50); %Basophils 0.3 % (0.0-1.0); %Monocytes 4.8 % (0.0-4.0); Hematocrit 37.3 % (42.0-52.0); Mean Platelet Volume 8.4 fL (7.4-10.4); Red Blood Cell (RBC) Count 3.94 mill/uL (4.00-5.20); White Blood Cell (WBC) Count 7.6 thou/uL (4.8-10.8)
[2017-08-20 01:40] LABS: Chloride 98 mmol/L (98-107)
[2017-08-20 01:41] LABS: Calcium 9.6 mg/dL (7.8-10.44)
[2017-08-20 01:42] LABS: Globulin 3.3 g/dL (2.4-3.5); Protein, Total 7.2 g/dL (6.0-8.3)
[2017-08-20 01:43] LABS: Anion Gap 21 mmol/L (10-20); Bilirubin, Total 0.4 mg/dL (0.2-1.2); Carbon Dioxide 26 mmol/L (22-29)
[2017-08-20 01:45] LABS: Alkaline Phosphatase 81 U/L (Less than 750); Calc. Creatinine Clearance 0 mL/min (70-130); Estimated GFR-MDRD 5
[2017-08-20 01:46] LABS: BUN (Urea Nitrogen) 54 mg/dL (8.9-20.6)
[2017-08-20 01:47] LABS: AST (SGOT) 39 U/L (5-34)
[2017-08-20 01:48] LABS: ALT (SGPT) 39 U/L (8-55)
[2017-08-20] MEDS ORDERED: CALCIUM GLUCONATE 25 GM TUBE ONE (02:01)
[2017-08-20] MEDS ORDERED: Calcium Gluc 4.6 MEQ/10 ML (100 MG/ML) SLOW IVP SCH (02:15)
[2017-08-20 03:15] LABS: CK (CPK) 67 U/L (30-200); Magnesium 2.2 mg/dL (1.7-2.2)
--- NOTE | 2017-08-20 04:42 | HP ---
DATE OF ADMISSION: 08/20/2017 PRIMARY CARE PHYSICIAN: Dr. Zeng. PRIMARY DEPOT AGENT: Dr. Arrieta. CHIEF COMPLAINT: Generalized fatigue. HISTORY OF PRESENT ILLNESS: The patient is a 22-year-old male with end-stage renal disease with int ermittent hemodialysis, hypertension who presented to the emergency room with above complaints. The patient was admitted at this facility 2 days ago for generalized body aches. His workup was con sistent with hyperkalemia with potassium of 6.4. He underwent hemodialysis per Nephrology and was d ischarged home on the same day. He was scheduled to get a hemodialysis later today per patient repo rt. The patient presented to the emergency room with generalized body aches and fatigue. He also had ge neralized muscle cramps. He felt nauseous; however, denies any vomiting, abdominal pain, cough, siena rtness of breath or wheezing. He does not make any urine. He claims to be compliant with low potas sium diet. In the emergency room, his initial vital signs showed temperature 98.1, respirations 20, pulse of 74 with blood pressure 130/87 with O2 saturation 99% on room air. His workup was consistent with hype rkalemia with potassium of 6.5. Nephrology has been contacted for emergent hemodialysis. His EKG s howed sinus rhythm with peaked T-wave changes. PAST MEDICAL HISTORY: 1. End-stage renal disease with intermittent hemodialysis since the age of 12. 2. Hypertension. 3. Chronic anemia secondary to end-stage renal disease. 4. 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 PAST SURGICAL HISTORY: 1. Dialysis access. 2. Renal transplant in 2012 with progressive rejection and failure. ALLERGIES: The patient is allergic to HYDROCODONE. CURRENT HOME MEDICATIONS: Unavailable at this time. The patient does not remember all of his medic ations. He is currently on prednisone 15 mg daily per patient report. FAMILY HISTORY: Positive for hypertension and CKD. SOCIAL HISTORY: The patient currently lives at home. No current use of tobacco, alcohol or drug us e reported. REVIEW OF SYSTEMS: The following complete review of systems was negative, unless otherwise mentione d in the HPI or below: Constitutional: Weight loss or gain, ability to conduct usual activities. Skin: Rash, itching. Eyes: Double vision, pain. ENT/Mouth: Nose bleeding, neck stiffness, pain, tenderness. Cardiovascular: Palpitations, dyspnea on exertion, orthopnea. Respiratory: Shortness of breath, wheezing, cough, hemoptysis, fever or night sweats. Gastrointestinal: Poor appetite, abdominal pain, heartburn, nausea, vomiting, constipation, or diar alo. Genitourinary: Urgency, frequency, dysuria, nocturia. Musculoskeletal: Pain, swelling. Neurologic/Psychiatric: Anxiety, depression. Allergy/Immunologic: Skin rash, bleeding tendency. PHYSICAL EXAMINATION: VITAL SIGNS: As discussed above. GENERAL: A 22-year-old male with generalized fatigue. Pain somewhat improved with pain medicine in the emergency room. HEENT: Head atraumatic, normocephalic. Sclerae are anicteric. Moist mucous membranes. No oral le nohemi. NECK: Supple, no JVD appreciated. No carotid bruit. LUNGS: Showed scattered rales at bases. HEART: S1, S2 present. Regular rate and rhythm. No significant rubs, gallops or murmurs appreciat ed. ABDOMEN: Soft, mild generalized tenderness, without any rebound, guarding, no costovertebral angle tenderness. EXTREMITIES: No edema or calf tenderness. NEUROLOGIC: Grossly nonfocal, moves all four extremities. PSYCHIATRY: Alert, awake, oriented x3. SKIN: Warm and dry. LYMPH NODES: No palpable lymph nodes in the neck. PERIPHERAL VASCULAR: Radial pulses palpable bilaterally. MUSCULOSKELETAL: No joint swelling or tenderness. LABORATORY FINDINGS: 1. CBC showed WBC 7.6 with hemoglobin 12.5, platelet 224. 2. Potassium 6.5 with anion gap of 21, BUN 54, creatinine 14.36. 3. EKG by my review as discussed above. IMPRESSION: 1. Hyperkalemia with EKG changes. The patient will undergo emergent hemodialysis per Nephrology. Nephrology has been contacted by the ER physician. 2. Hypertension. We will resume home medication based on recent discharge summary. 3. History of renal transplant with progressive rejection and failure. We will continue prednisone on the daily basis. 4. Secondary hyperparathyroidism. Plan per Nephrology. We will continue renal diet. 5. Anion gap metabolic acidosis, probably secondary to uremia. 6. HYDROCODONE allergy. 7. Chronic anemia secondary to renal insufficiency. Plan of care was discussed with the patient. He stated understanding.
[2017-08-20 05:21] VITALS: BMI 32.1
[2017-08-20] MEDS ORDERED: Senokot 8.6 MG TAB PO PRN (05:26)
[2017-08-20] MEDS ORDERED: Ondansetron HCl/PF 4 MG/2 ML Vial IVP PRN (05:26)
[2017-08-20] MEDS ORDERED: Mag-Al 1200 mg/1200 mg/30 ML UDCUP PO PRN (05:26)
[2017-08-20] MEDS ORDERED: Calcium Carbonate 500 MG ChewTAB PO PRN (05:26)
[2017-08-20] MEDS ORDERED: Bisacodyl 5 MG TAB PO PRN (05:26)
[2017-08-20] MEDS ORDERED: Nitroglycerin 0.4 MG TAB (25 Tab Bottle) PO PRN (05:26)
[2017-08-20] MEDS ORDERED: Ondansetron ODT 4 MG TAB PO PRN (05:26)
[2017-08-20] MEDS ORDERED: Acetaminophen 325 MG TAB PO PRN (05:26)
[2017-08-20] MEDS ORDERED: Heparin 10,000 UNITS/ 10 ML VIAL ONE (07:32)
[2017-08-20] MEDS ORDERED: predniSONE 5 MG TAB PO SCH (08:00)
[2017-08-20] MEDS ORDERED: Metoprolol Tartrate 50 MG TAB PO SCH (09:00)
[2017-08-20] MEDS ORDERED: Famotidine 20 MG TAB PO SCH (09:00)
[2017-08-20 09:03] VITALS: BP 120/72; TEMP 97.4
[2017-08-20 11:22] LABS: Anion Gap 14 mmol/L (10-20); BUN (Urea Nitrogen) 23 mg/dL (8.9-20.6); Calc. Creatinine Clearance 23 mL/min (70-130); Calcium 9.7 mg/dL (7.8-10.44); Carbon Dioxide 29 mmol/L (22-29); Chloride 99 mmol/L (98-107); Estimated GFR-MDRD 10
--- NOTE | 2017-08-20 12:22 | CON ---
DATE OF CONSULTATION: 08/20/2017 NEPHROLOGY CONSULTATION REASON FOR CONSULTATION: Hyperkalemia. TIME OF CONSULTATION: 2 a.m. REASON FOR CONSULTATION: Hyperkalemia. HISTORY OF PRESENT ILLNESS: This is a 22-year-old gentleman who had high potassium diet presented t o the hospital with potassium of 6.5. The patient was supposed to get dialysis today, but because o f weakness and tingling, he presented to the ER. The patient denies no headache, numbness, tingling or weakness. Denies any nausea, vomiting or chest pain. PAST MEDICAL HISTORY: Significant for hypertension, hyperkalemia, end-stage renal disease, anemia, history of failed renal transplant and rejection, history of anemia, and secondary hyperparathyroidi sm. ALLERGIES: Reviewed. HOME MEDICATIONS: List reviewed. FAMILY HISTORY: Negative for ESRD. SOCIAL HISTORY: No alcohol or drug use. REVIEW OF SYSTEMS: A 10-point review of systems was performed and negative except for positives not ed above. GENERAL: Weakness- HEAD: Headache- NECK: No swelling or lumps. NOSE: No epistaxis or discharge. EYES: No diplopia or pain. RESPIRATORY: Dyspnea- CARDIOVASCULAR: Chest pain- GASTROINTESTINAL: Nausea- /PREPARATION PLANT REPAIRER: Hematuria- MUSCULOSKELETAL: No joint pain. NEUROPSYCHIATIC SYSTEMS: No suicidal ideation. No ideation. SKIN: Denies any rash or ulcer. CONSTITUTIONAL: No fever or chills. PHYSICAL EXAMINATION: GENERAL: Patient is awake, alert. VITAL SIGNS: Afebrile, pulse 75, breathing at 16, blood pressure was 130/70. OBJECTIVE: See above. HEAD/NECK: Normocephalic. Atraumatic. EYES: EOMI. No deformity. EARS: Clear. No ulcers. NOSE: Intact. No lesions. MOUTH: Clear. No discharge. THROAT: Clear. No exudate. LUNGS: Clear. No crackles. CARDIAC: S1, S2. No rub. ABDOMEN: Benign. BS+. GENITALIA/RECTUM: Pimentel absent. BACK/EXTREMITIES: Edema 0+ Ulcer- NEUROLOGICAL: Alert and motor intact. SKIN: Rash- Bruise- LYMPHATICS: Edema- Ulcer- LABORATORY DATA: Show potassium 6.5. ASSESSMENT AND RECOMMENDATIONS: 1. Stage 6 chronic kidney disease with hyperkalemia. Plan urgent dialysis. The nurse was called. 2. Anemia, stable. 3. Hypertension, stable. 4. Medications based on glomerular filtration rate are appropriate.
--- NOTE | 2017-08-20 16:03 | DIS ---
DATE OF ADMISSION: 08/20/2017 DATE OF DISCHARGE: 08/20/2017 CONSULTANTS: The patient's consultants on the case were Nephrology. DIAGNOSES ON DISCHARGE: 1. End-stage renal disease with hyperkalemia, status post dialysis resolved. 2. History of hypertension, stable. 3. History of failed kidney transplant. 4. History of secondary parathyroidism. 5. Anemia. DISCHARGE MEDICATIONS: The patient's discharge medications are the same as admitting medications. DISPOSITION: Home. BRIEF HOSPITAL COURSE: A 22-year-old pleasant gentleman, who came into the hospital with some body pains and tingling. He was found to have potassium of 6.5. The patient was dialyzed this morning, he feels much better right now. I spoke to Dr. Arrieta and he is okay with sending the patient home. He is right now symptomatically better. He is advised to follow up with PCP and keep up his appoint ments for the dialysis and to be mindful of what he eats. He understands all of this. He is right now medically stable to be discharged with outpatient followup with PCP and Renal. He is asked to c ome back to the emergency room in case symptoms recur. PHYSICAL EXAMINATION: VITAL SIGNS: The patient at the time of discharge had a blood pressure of 144/89, afebrile, pulse o f 66, and breathing comfortably on room air. GENERAL: The patient is lying in bed, in no apparent distress. HEENT: Atraumatic and normocephalic. Pupils equally round and reactive to light. Extraocular move ments intact. Mucous membranes moist. NECK: Supple. No JVD. CHEST: Breath sounds heard. No rales or rhonchi. HEART: S1 and S2. No murmurs or gallops. ABDOMEN: Soft, obese. EXTREMITIES: No cyanosis, clubbing or edema. Distal pulses present. NEUROLOGIC: Alert, awake, oriented. No cranial deficits. No sensorimotor deficits. The patient right now is medically stable to be discharged and to be followed up by the PCP and neph rologist. He is asked to come back to the emergency room in case symptoms recur. Total time for this discharge took 35 minutes.
== END 2017-08-20 13:30 | disposition home or self-care (01) ==
LOC: ERS 23:33 → 2SW 08-20 02:00
PROVIDERS: ADMIT Internal Medicine; ATTEND Internal Medicine
DX: I12.0 Hypertensive chronic kidney disease with stage 5 chronic kidney disease or end stage renal disease (principal); N18.6 End stage renal disease; T86.12 Kidney transplant failure; N25.81 Secondary hyperparathyroidism of renal origin; D63.1 Anemia in chronic kidney disease; Z99.2 Dependence on renal dialysis; Z79.52 Long term (current) use of systemic steroids; Z79.899 Other long term (current) drug therapy; Z88.5 Allergy status to narcotic agent; Z88.1 Allergy status to other antibiotic agents; Z82.49 Family history of ischemic heart disease and other diseases of the circulatory system; Z84.1 Family history of disorders of kidney and ureter
CPT/HCPCS: 36415; 80053; 82550; 83735; 84100; 85025; 90935; 93005; 96374; 96375; 96376; G0257; G0378; J1644; J2270

== ENCOUNTER 2017-08-25 00:16 | Emergency (ER) | payer MEDICAID, OTHER ==
--- OUTSIDE RECORDS SUMMARY | 2017-08-25 00:19 | XMS | Clinical Summary ---
:1995 Author Organization [facility] Address [address] [place] [address] Phone Care Team Providers Name Role Phone [...] with meals. ferrous Take 1 capsule Active [id number] by mouth every C-folic acid morning before [...] disease 08/08/2017 ESRD (end stage renal disease) ([facility]) 08/08/2017 S/p cadaver renal transplant 08/08/2017 Kidney transplant failure 08/08/2017 Secondary hypertension due to renal disease 08/08/2017 Obesity (BMI 30-39.9) 08/08/2017 Secondary hyperparathyroidism of renal origin ([facility]) 08/08/2017 Encounters Date Type Specialty Care Team [...] disease (Primary Dx);ESRD (end stage renal disease) ([facility]);S/p cadaver renal transplant;Kidney transplant failure;Secondary hypertension due to renal disease;Obesity (BMI 30-39.9);Secondary hyperparathyroidism of renal origin ([facility]) 08/07/2017 Hospital Encounter Radiology Isabel Preciado MD 08/07/2017 Hospital Encounter Cardiology Isabel Preciado Pre- transplant evaluation MD Uday for chronic kidney disease;ESRD (end stage renal disease) on dialysis ([facility]) 08/07/2017 Orders Only Lab Isabel Preciado Pre-transplant evaluation MD Uday for chronic kidney disease;ESRD (end stage renal disease) on dialysis ([facility]) 08/07/2017 Committee Review Transplant Belinda Rivera 08/07/2017 [...] MD Report Verified Date/Time:08/07/2017 14:22:50 Reading Location: [place] [address] Angio Body Reading Room Addendum Ends FINAL REPORT CT angiography of the abdominal aorta and pelvic arteries, 07 August 2017 INDICATION: This is a 22 year old male with end-stage renal disease, presents for pretransplant assessment..This study is performed in an attempt to avoid an invasive procedure. TECHNIQUE: Spiral acquisition before and during intravenous contrast administration using a [employer] multidetector CT scanner. Images were obtained before [...] are widely patent, with no atherosclerosis identified cash posting representative dimensions of the left and the [...] veins are patent with no venous thrombosis identified.Spiral Binder dimensions of the left and the right [...] no arterial stenosis or venous thrombosis identified. Spiral Binder dimensions of the left and the right external iliac arteries and veins are as described above. Patient is post renal transplantation, and the transplant vasculature is to the right external iliac artery and vein as described above. 2. Patent mesenteric arteries. Patent renal arteries. 3.Other findings as described above. 4.An addendum will be dictated regarding the non-vascular findings by the Customer Strategy Manager Radiologist. Signed: Sebastian Guy MD Report Verified Date/Time:08/07/2017 12:37:23 Reading Location: [place] [address] Cardiology MRI Procedure Note Interface, External Ris In - 08/07/2017 2:24 PM CDT Addendum Begins REPORT STATUS:A Addendum I have reviewed the nonvascular findings and concur with Dr. Guy's report. Signed: Roro Negron MD Report Verified Date/Time: 08/07/2017 14:22:50 Reading Location: [facility] [address] Angio Body Reading Room Addendum Ends FINAL REPORT CT angiography of the abdominal aorta and pelvic arteries, 07 August 2017 INDICATION: This is a 22 year old male with end-stage renal disease, presents for pretransplant assessment.. This study is performed in an attempt to avoid an invasive procedure. TECHNIQUE: Spiral acquisition before and during intravenous contrast administration using a [employer] multidetector CT scanner. Images were obtained before [...] are widely patent, with no atherosclerosis identified cash posting representative dimensions of the left and the [...] are patent with no venous thrombosis identified. Spiral Binder dimensions of the left and the right [...] no arterial stenosis or venous thrombosis identified. Spiral Binder dimensions of the left and the right external iliac arteries and veins are as described above. Patient is post renal transplantation, and the transplant vasculature is to the right external iliac artery and vein as described above. 2. Patent mesenteric arteries. Patent renal arteries. 3. Other findings as described above. 4. An addendum will be dictated regarding the non-vascular findings by the Customer Strategy Manager Radiologist. 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 Quinn Hutchinson [facility] Interpreting Beckie Francis MD Physician [...] Study 08/07/2017 JERALD Gender Male Visit Number [id number] Race Black Room Number Number Date of 1995 Referring Ozzy Hall Physician Uday Age 22 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(s) 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 Quinn Hutchinson [facility] Interpreting Beckie Francis MD Physician [...] >20 Scan Result Specimen Performing Laboratory Blood [facility] [address] [facility], [address] [place] [address] PT/aPTT (08/07/2017 6:53 AM) Component Value Ref Range Protime 14.1 11.7 - 14.7 seconds INR 1.1 <=5.9 PTT 33.2 22.5 - 36.0 seconds Specimen Performing Laboratory Blood [address] [address] Narrative RECOMMENDED COUMADIN/WARFARIN INR THERAPY RANGES STANDARD DOSE: 2.0 - 3.0 Includes: PROPHYLAXIS for venous thrombosis, systemic embolization; TREATMENT for venous thrombosis and/or pulmonary embolus. HIGH RISK: Target INR is 2.5-3.5 for patients with mechanical heart valves. HIV-1 Antigen with HIV-1/2 Antibody (08/07/2017 6:53 AM) Component Value Ref Range HIV-1 Antigen with HIV 1&2 Antibody Nonreactive Nonreactive Specimen Performing Laboratory Blood [address] [address] CBC with platelet count + automated diff [...] - 1 % Specimen Performing Laboratory Blood [address] [address] Hepatitis C Antibody (08/07/2017 6:53 AM) Component Value Ref Range Hepatitis C Ab Nonreactive Nonreactive Specimen Performing Laboratory Blood [address] [address] Cytomegalovirus antibody, IgM (08/07/2017 6:53 AM) Component Value Ref Range CMV IgM Negative Specimen Performing Laboratory Blood [address] [address] Hepatitis B core antibody, IgM (08/07/2017 6:53 AM) Component Value Ref Range Hep B C IgM Nonreactive Nonreactive Specimen Performing Laboratory Blood [address] [address] EBV-VCA antibody, IgM (08/07/2017 6:53 AM) Component Value Ref Range EBV VCA IgM Negative Specimen Performing Laboratory Blood [address] [address] EBV-VCA antibody, IgG (08/07/2017 6:53 AM) Component Value Ref Range EBV VCA IgG Positive Specimen Performing Laboratory Blood [address] [address] RPR (08/07/2017 6:53 AM) Component Value Ref Range RPR Nonreactive Nonreactive Specimen Performing Laboratory Blood [address] [address] Hepatitis B surface antibody (08/07/2017 6:53 AM) Component Value Ref Range Hep B S Ab 366.6(H) <8.0 mIU/mL Specimen Performing Laboratory Blood [address] [address] Hepatitis B surface antigen (08/07/2017 6:53 AM) Component Value Ref Range hepatitis B Surface Ag Nonreactive Nonreactive Specimen Performing Laboratory [address] [address] Cytomegalovirus antibody, IgG (08/07/2017 6:53 AM) Component Value Ref Range CMV IgG Positive Specimen Performing Laboratory Blood [address] [address] CBC w/PLT Count& Auto Differential (08/07/2017 6:53 AM) Specimen Performing Laboratory Blood Narrative The following orders were created for panel order CBC w/PLT Count & Auto Differential. Procedure Abnormality Status --------- ------ CBC with platelet count ...[[id number]]AbnormalFinal result Please view results for these tests on the individual orders. Direct AHG (NATALYA)/Direct Nona (08/07/2017 6:53 AM) Component Value Ref Range Direct AHG-IGG NEGATIVE Direct [facility]HG-C3B, C3D NEGATVIE Specimen Performing Laboratory [address] [address] Varicella Zoster Antibody, IgG (08/07/2017 6:53 AM) Component Value Ref Range Varicella IgG 0.4 Al Specimen Performing Laboratory [address] [address] Narrative VARICELLA ZOSTER RESULT INTERPRETATIONS: <=0.8 AlNonreactive:Presumed non-immune to VZV 0.9-1.0 AlEquivocal >=1.1 AlReactive:Presumed immune to VZV Uric Acid (08/07/2017 6:53 AM) Component Value Ref Range Uric Acid 3.0 2.6 - 7.2 mg/dL Specimen Performing Laboratory [address] [address] Phosphorus (08/07/2017 6:53 AM) Component Value Ref Range Phosphorus 3.9 2.3 - 4.7 mg/dL Specimen Performing Laboratory [address] [address] PTH, Intact (08/07/2017 6:53 AM) Component Value Ref Range PTH 647.2(H) 8.5 - 72.5 pg/mL Specimen Performing Laboratory [address] [address] Lactate Dehydrogenase (LDH) (08/07/2017 6:53 AM) Component Value Ref Range LDH 165 125 - 220 U/L Specimen Performing Laboratory Blood [address] [address] Hemoglobin A1c (08/07/2017 6:53 AM) Component Value Ref Range Hemoglobin A1C 4.6 4.3 - 6.1 % Specimen Performing Laboratory [address] [address] Gamma Glutamyl Transferase (GGT) (08/07/2017 6:53 AM) Component Value Ref Range GGT 29 9 - 64 U/L Specimen Performing Laboratory [address] [address] Lipid panel (08/07/2017 6:53 AM) Component Value Ref Range Triglycerides 98 mg/dL Cholesterol 129 mg/dL HDL 40 mg/dL LDL Calculated 69 mg/dL Specimen Performing Laboratory Blood [address] [address] Narrative Triglyceride Reference Range: Low Risk <150 [id number] High Risk 200-499 Very High Risk>=500 Cholesterol Reference Range: Low Risk <200 [id number] High Risk>240 HDL Cholesterol Reference Range: Low Risk >=60 High Risk <40 LDL Cholesterol Reference Range: Optimal<100 Near Sfozlol683-519 [id number] Zwzk533-484 Very High >=190 Comprehensive metabolic panel (08/07/2017 [...] FOR DIALYSIS PATIENTS. Specimen Performing Laboratory Blood [address] [address] from Last 3 Months
--- OUTSIDE RECORDS SUMMARY | 2017-08-25 00:19 | XMS ---
:1995 Author Organization [facility] Care Team Providers Name Role Phone [facility] Unavailable Unavailable [facility] Unavailable Unavailable [facility] Unavailable Unavailable [facility] Unavailable Unavailable [facility] Unavailable Unavailable [facility] Unavailable Unavailable SYNAGOGUE, NASIR Unavailable Unavailable SYNAGOGUE, NASIR Unavailable Unavailable SYNAGOGUE, NASIR Unavailable Unavailable SYNAGOGUE, NASIR Unavailable Unavailable SYNAGOGUE, NASIR Unavailable Unavailable SYNAGOGUE, NASIR Unavailable Unavailable SYNAGOGUE, NASIR Unavailable Unavailable SYNAGOGUE, NASIR Unavailable Unavailable SYNAGOGUE, NASIR Unavailable Unavailable SYNAGOGUE, NASIR Unavailable Unavailable MOLINA, PEYMAN Unavailable Unavailable [...] PEYMAN 12/15/2013 RADHA MOLINA MDAdmitter: 11:33:00 AM ROPEMAN PEYMAN MOLINA MD [facility]: [facility] Inpatient Attender: BLU LOPEZ 11/25/2013 DELArian MDAdmitter: CARISSA 10:37:00 AM ROPEMAN ANNABEL FERREIRA - 12/08/2013 03:50:00 PM ROPEMAN Outpatient Attender: YASMANI OLMEDO 06/21/2013 RADHA MDAdmitter: YASMANI 08:15:00 AM CDT SHARA FERREIRA Outpatient Attender: [facility] 06[facility]10/2013 [facility]: 10[facility] AM [facility]T [facility] Outpatient Attender: YASMANI OLMEDO 06/02/2013 RADHA MDAdmitter: [...] - 03/03/2013 08:10:00 AM CDT Outpatient Attender: [facility]15[facility] AM [facility] Out[facility] Attender: [facility]09[facility]2012 [facility] 08[facility]00 AM CDT [facility] Inpatient Attender: YASMANI OLMEDO 08/19/2011 RADHA FERREIRA [...] MIKAELA CARY 12/12/2010 RADHA FERREIRA 12:11:00 PM ROPEMAN Insurance Providers Payer name Policy type Policy ID Covered Covered constitution party's Policy Plan / Coverage constitution party ID relationship to Linda Information type linda [place] Medicaid [id number]_[id number] [place] Medicaid NOT_[id number]_[id number] MEDICAID Medicaid [id number]_[id number] [place] Medicaid NOT_[id number] 326_IN_[id number] MEDICAID Medicaid [id number]_[id number] [place] Medicaid NOT_[id number]_[id number] [employer] Medicaid NOT_[id number]_IN_[id number] [employer] Medicaid NOT_VALID_[id number] 640_IN_1 [employer] Medicaid NOT_VALID_[id number] 514_IN_1 [facility] Medicaid NOT_VALID_[id number]_IN_[id number] SUPERIOR Medicaid MC NOT_VALID_[id number] STAR 524_IN_1 SUPERIOR Medicaid [id number] STAR 341_IN_1 Medicaid MC NOT_VALID_0000 [id number] Medicaid MC NOT_VALID_0000 [id number] Medicaid MC NOT_VALID_0000 [id number] Medicaid MC NOT_VALID_0000 [id number] Medicaid MC NOT_VALID_0000 [id number] Medicaid MC NOT_VALID_0000 [id number] Problems, Conditions, and Diagnoses Code Display Name Description Effective Dates Data Source(s) 284.19 OTHER PANCYTOPENIA PANCYTOPENIA NEC 12/15/2013 [facility] 11:59:00 PM ROPEMAN 558.9 OTHER AND UNSPECIFIED NONINF GASTROENT 12/15/2013 [facility] NONINFECTIOUS NEC&NOS 11:59:00 PM ROPEMAN GASTROENTERITIS AND COLITIS 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 12/15/2013 [facility] TRANSPLANT STATUS 11:59:00 PM ROPEMAN 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 12/15/2013 [facility] 11:59:00 PM ROPEMAN 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 12/15/2013 [facility] 11:33:00 AM ROPEMAN 008.69 ENTERITIS DUE TO OTHER VIRAL ENTERITIS NEC 12/08/2013 [facility] VIRAL ENTERITIS 03:50:00 PM ROPEMAN 403.91 HYPERTENSIVE CHRONIC HTN CKD NOS V-ESRD 12/08/2013 [facility] KIDNEY DISEASE 03:50:00 PM ROPEMAN UNSPECIFIED WITH CHRONIC KIDNEY DISEASE STAGE V OR END STAGE RENAL DISEASE 425.4 OTHER PRIMARY PRIM CARDIOMYOPATHY NEC 12/08/2013 [facility] CARDIOMYOPATHIES 03:50:00 PM ROPEMAN 288.00 NEUTROPENIA UNSPECIFIED NEUTROPENIA NOS 12/08/2013 [facility] 03:50:00 PM ROPEMAN 284.19 OTHER PANCYTOPENIA PANCYTOPENIA NEC 12/08/2013 [facility] 03:50:00 PM ROPEMAN 585.6 END STAGE RENAL DISEASE ESRD 12/08/2013 [facility] 03:50:00 PM ROPEMAN 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 12/08/2013 [facility] 03:50:00 PM ROPEMAN 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 12/08/2013 [facility] TRANSPLANT STATUS 03:50:00 PM ROPEMAN 532.90 DUODENAL ULCER DU NOS W/O COMP 12/08/2013 [facility] UNSPECIFIED ACUTE OR 03:50:00 PM ROPEMAN CHRONIC WITHOUT HEMORRHAGE OR PERFORATION WITHOUT OBSTRUCTION 429.3 CARDIOMEGALY CARDIOMEGALY 12/08/2013 [facility] 03:50:00 PM ROPEMAN 783.21 LOSS OF WEIGHT LOSS OF WEIGHT 11/25/2013 [facility] 10:37:00 AM ROPEMAN V12.61 PERSONAL HISTORY OF HX PNEUMONIA 07/30/2013 [...] AV FISTULA 01/15/2013 [facility] ACQUIRED 12:00:00 AM ROPEMAN 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 01/15/2013 [facility] ACQUIRED 12:00:00 AM ROPEMAN 585.6 END STAGE RENAL DISEASE ESRD 01/15/2013 [facility] 12:00:00 AM ROPEMAN 403.91 HYPERTENSIVE CHRONIC HTN CKD NOS V-ESRD 01/15/2013 [facility] KIDNEY DISEASE 12:00:00 AM ROPEMAN UNSPECIFIED WITH CHRONIC KIDNEY DISEASE STAGE V OR END STAGE RENAL DISEASE 530.81 ESOPHAGEAL REFLUX ESOPHAGEAL REFLUX 01/15/2013 [facility] 12:00:00 AM ROPEMAN V45.11 RENAL DIALYSIS STATUS DIALYSIS STATUS 01/15/2013 [facility] 12:00:00 AM ROPEMAN V58.69 LONG-TERM (CURRENT) USE LONG-TERM USE MEDS NEC 01/15/2013 [facility] OF OTHER MEDICATIONS 12:00:00 AM ROPEMAN 996.73 OTHER COMPLICATIONS DUE COMP D/T RENAL [...] CLOS LARGE BOWEL BIOPSY 11/29/2013 12:00:00 AM ROPEMAN [facility] EGD WITH CLOSED BIOPSY 11/29/2013 12:00:00 AM ROPEMAN [facility] BONE MARROW BIOPSY 11/26/2013 12:00:00 AM ROPEMAN [facility] ARM VESSEL EXCISION 07/30/2013 12:00:00 AM [...] DELL CONTRAST ARTERIOGRAM NEC 01/15/2013 12:00:00 AM ROPEMAN [facility] ACCESS AV DIAL GRFT FOR EVAL 01/15/2013 12:00:00 AM ROPEMAN [facility] CONTRAST PHLEBOGRAM NEC 01/15/2013 12:00:00 AM ROPEMAN [facility] REPAIR DEFECT OF ARTERY 07/09/2012 08:00:00 AM CDT [facility] ARM VESSEL RESECT/ANAST 07/09/2012 08:00:00 AM CDT [facility] HEMODIALYSIS 08/21/2011 12:00:00 AM CDT [facility] HEMODIALYSIS 07/24/2011 12:00:00 AM CDT [facility] HEMODIALYSIS 06/04/2011 12:00:00 AM CDT [facility] HEMODIALYSIS 04/01/2011 12:00:00 AM CDT [facility] HEMODIALYSIS 03/20/2011 12:00:00 AM CDT [facility] REMOVAL TUNNELED CV CATH 12/12/2010 12:00:00 AM ROPEMAN [facility] REMOVAL FB/DEV FROM SKIN 12/12/2010 12:00:00 AM ROPEMAN DELL
[2017-08-25 01:31] LABS: Bilirubin Negative (Negative); Blood, Urine Negative (Negative); Glucose, Urine (Dipstick) Negative (Negative); Ketone, Urine Negative (Negative); Nitrite Negative (Negative); Protein, Urine (Dipstick) Negative (Neg-Trace)
[2017-08-25 01:36] LABS: #Basophils 0.1 thou/uL (0.0-0.2); #Eosinphils 0.2 thou/uL (0.0-0.7); #Lymphocytes 2.4 thou/uL (1.20-3.40); #Monocytes 1.1 thou/uL (0.11-0.59); #Neutrophils 4.6 thou/uL (1.40-6.50); %Basophils 0.7 % (0.0-1.0); %Eosinophils 2.7 % (0.0-10.0); %Lymphocytes 28.3 % (28.0-48.0); %Monocytes 13.6 % (0.0-4.0); Hematocrit 36.3 % (42.0-52.0); Mean Platelet Volume 8.3 fL (7.4-10.4); Red Blood Cell (RBC) Count 3.79 mill/uL (4.00-5.20); White Blood Cell (WBC) Count 8.3 thou/uL (4.8-10.8)
[2017-08-25 01:55] LABS: ALT (SGPT) 55 U/L (8-55); AST (SGOT) 19 U/L (5-34); Alkaline Phosphatase 66 U/L (Less than 750); Anion Gap 16 mmol/L (10-20); BUN (Urea Nitrogen) 51 mg/dL (8.9-20.6); Bilirubin, Total 0.4 mg/dL (0.2-1.2); Calc. Creatinine Clearance 0 mL/min (70-130); Calcium 9.3 mg/dL (7.8-10.44); Carbon Dioxide 32 mmol/L (22-29); Chloride 97 mmol/L (98-107); Estimated GFR-MDRD 6; Lipase 40 U/L (8-78); Protein, Total 6.7 g/dL (6.0-8.3)
[2017-08-25] MEDS ORDERED: Metoclopramide HCl 10 MG/2 ML VIAL ONE (02:13)
[2017-08-25] MEDS ORDERED: diphenhydrAMINE HCl 50 MG/ML 1 ML VIAL ONE (02:13)
[2017-08-25] MEDS ORDERED: Methocarbamol 1 GM in Sodium Chloride 0.9% 100 ML IVPB SCH (02:30)
--- NOTE | 2017-08-25 08:55 | CT ---
PRELIMINARY REPORT/[facility]/EMERGENCY AFTER HOURS PROCEDURE: EXAM: CT Head Without Intravenous Contrast CLINICAL HISTORY: 22 years old, male; Pain; Headache; Headache not specified; Patient HX: HALL TECHNIQUE: Axial computed tomography images of the head/brain without intravenous contrast. COMPARISON: No relevant prior studies available. FINDINGS: Brain: Normal. Ventricles: Normal. Bones/joints: Normal. No acute fracture. Soft tissues: Normal. Sinuses: Normal. Mastoid air cells: Normal as visualized. No mastoid effusion. IMPRESSION: Normal head/brain CT. Thank you for allowing us to participate in the care of your patient. Dictated and Authenticated by: Dann Griffith MD 08/25/2017 2:39 AM Central Time ([place] \T\ [place]) FINAL REPORT EMERGENCY AFTER HOURS CT HEAD: Date: 08/25/17 HISTORY: Headache and throbbing low back pain. IMPRESSION: No acute intracranial abnormalities demonstrated. Findings are in agreement with the preliminary report by Lisa. POS: [facility]
== END 2017-08-25 04:30 | disposition home or self-care (01) ==
LOC: ERS 00:16
DX: R51 Headache (principal); M54.5 Low back pain; I13.11 Hypertensive heart and chronic kidney disease without heart failure, with stage 5 chronic kidney disease, or end stage renal disease; N18.6 End stage renal disease; I42.9 Cardiomyopathy, unspecified; F41.9 Anxiety disorder, unspecified; Z79.899 Other long term (current) drug therapy; Z99.2 Dependence on renal dialysis
CPT/HCPCS: 36415; 70450; 80053; 81003; 83690; 85025; 96365; 96367; 96375; J1200; J2765; J2800; J7050

== ENCOUNTER 2017-10-22 14:06 | Emergency (ER) | payer MEDICAID, OTHER ==
[2017-10-22 15:39] LABS: Anion Gap 5 mmol/L (-14-95); T. Carbon Dioxide 30.3 mmol/L (1.0-85.0); vO2 Saturation-calc 81.5 % (0.0-100.0)
[2017-10-22 15:49] LABS: #Lymphocytes 1.2 thou/uL (1.20-3.40); #Monocytes 0.3 thou/uL (0.11-0.59); #Neutrophils 6.2 thou/uL (1.40-6.50); %Basophils 0.1 % (0.0-1.0); %Eosinophils 0.5 % (0.0-10.0); Hematocrit 32.6 % (42.0-52.0); Mean Platelet Volume 7.8 fL (7.4-10.4); Red Blood Cell (RBC) Count 3.37 mill/uL (4.00-5.20); White Blood Cell (WBC) Count 7.7 thou/uL (4.8-10.8)
[2017-10-22 16:09] LABS: ALT (SGPT) 11 U/L (8-55); AST (SGOT) 16 U/L (5-34); Alkaline Phosphatase 100 U/L (Less than 750); Anion Gap 15 mmol/L (10-20); BUN (Urea Nitrogen) 40 mg/dL (8.9-20.6); Bilirubin, Total 0.5 mg/dL (0.2-1.2); CK (CPK) 175 U/L (30-200); Calc. Creatinine Clearance 0 mL/min (70-130); Calcium 9.4 mg/dL (7.8-10.44); Carbon Dioxide 29 mmol/L (22-29); Chloride 97 mmol/L (98-107); Estimated GFR-MDRD 5; Globulin 3.6 g/dL (2.4-3.5); Protein, Total 8.1 g/dL (6.0-8.3)
[2017-10-22 16:13] LABS: Troponin I 0.012 ng/mL (< 0.028)
== END 2017-10-22 15:42 | disposition home or self-care (01) ==
LOC: ERS 14:06
DX: E87.5 Hyperkalemia (principal); I12.0 Hypertensive chronic kidney disease with stage 5 chronic kidney disease or end stage renal disease; N18.6 End stage renal disease; Z99.2 Dependence on renal dialysis; Z79.899 Other long term (current) drug therapy
CPT/HCPCS: 36415; 80053; 82330; 82550; 82553; 82803; 84484; 85025; 93005; 94760

== ENCOUNTER 2017-11-09 04:37 | Inpatient (IN) | payer OTHER ==
[2017-11-09] MEDS ORDERED: Ondansetron ODT 4 MG TAB ONE (04:47)
[2017-11-09 05:06] LABS: #Lymphocytes 1.5 thou/uL (1.20-3.40); #Monocytes 0.6 thou/uL (0.11-0.59); #Neutrophils 5.8 thou/uL (1.40-6.50); %Basophils 0.2 % (0.0-1.0); %Eosinophils 0.3 % (0.0-10.0); %Monocytes 7.1 % (0.0-4.0); Hematocrit 32.4 % (42.0-52.0); Mean Platelet Volume 7.8 fL (7.4-10.4); Red Blood Cell (RBC) Count 3.36 mill/uL (4.00-5.20)
[2017-11-09 05:27] LABS: ALT (SGPT) 10 U/L (8-55); AST (SGOT) 12 U/L (5-34); Alkaline Phosphatase 99 U/L (Less than 750); Anion Gap 21 mmol/L (10-20); BUN (Urea Nitrogen) 40 mg/dL (8.9-20.6); Bilirubin, Total 0.3 mg/dL (0.2-1.2); Calc. Creatinine Clearance 0 mL/min (70-130); Calcium 8.8 mg/dL (7.8-10.44); Carbon Dioxide 29 mmol/L (22-29); Chloride 97 mmol/L (98-107); Estimated GFR-MDRD 7; Globulin 3.5 g/dL (2.4-3.5); Protein, Total 7.8 g/dL (6.0-8.3)
[2017-11-09] MEDS ORDERED: Dextrose 50% Abboject 50 ML SYRINGE ONE (06:13)
[2017-11-09] MEDS ORDERED: Insulin Regular 300 UNITS/3 ML VIAL ONE (06:13)
[2017-11-09] MEDS ORDERED: Calcium Gluc 4.6 MEQ/10 ML (100 MG/ML) ONE (06:13)
[2017-11-09] MEDS ORDERED: Morphine 4 MG/ML VIAL ONE (06:22)
[2017-11-09] MEDS ORDERED: Albuterol Sulfate 2.5 mg/0.5 ml Neb ONE (06:25)
[2017-11-09] MEDS ORDERED: Sodium Chloride For Inhalation 0.9% 3 ML NEB ONE (06:25)
[2017-11-09] MEDS ORDERED: Senokot 8.6 MG TAB PO PRN (12:32)
[2017-11-09] MEDS ORDERED: Ondansetron ODT 4 MG TAB PO PRN (12:32)
[2017-11-09] MEDS ORDERED: Ondansetron HCl/PF 4 MG/2 ML Vial IVP PRN (12:32)
[2017-11-09] MEDS ORDERED: Acetaminophen 325 MG TAB PO PRN (12:32)
[2017-11-09] MEDS ORDERED: Nitroglycerin 0.4 MG TAB (25 Tab Bottle) PO PRN (12:32)
[2017-11-09] MEDS ORDERED: hydrALAZINE 20 MG/ML VIAL SLOW IVP PRN (12:34)
[2017-11-09] MEDS ORDERED: cloNIDine 0.1 MG TAB PO PRN (12:34)
[2017-11-09] MEDS ORDERED: Labetalol HCl 100 MG/20 ML VIAL SLOW IVP PRN (14:34)
[2017-11-09] MEDS ORDERED: predniSONE 5 MG TAB PO SCH (14:45)
[2017-11-09 14:49] VITALS: BMI 36.1
--- NOTE | 2017-11-09 14:51 | HP ---
DATE OF ADMISSION: 11/09/2017 PRIMARY CARE PHYSICIAN: Enoch Zeng M.D. CHIEF COMPLAINT: Generalized fatigue. REASON FOR ADMISSION: Hyperkalemia. HISTORY OF PRESENT ILLNESS: Patient is a 22-year-old -Ugand[place] male with end-stage renal dise ase on hemodialysis, hypertension, and chronic anemia who presented to the emergency room with above complaints. Over the last two days, patient feels generally fatigued and weak. He also had generali zed body aches. He currently gets dialyzed Friday, Friday, and Friday with last dialysis 2 days a go. He is compliant with dietary restrictions. He denies any chest pain, shortness of breath, palpi tations, fever or chills. In the emergency room, initial vital signs showed temperature 98.5, respiration 18, pulse rate of 70, blood pressure of 165/112 with O2 saturation of 98% on room air. His labs were consistent with pota ssium of 5.9, creatinine 10.99 with BUN 21. He received insulin D50 with calcium gluconate, Zofran, morphine with albuterol nebulizer treatment. His EKG showed peak T-wave changes. PAST MEDICAL HISTORY: 1. Failed renal transplant, currently on chronic prednisone. 2. Chronic anemia secondary to end-stage renal disease. 3. Hypertension. 4. End-stage renal disease on hemodialysis since the age of 12 on and off. 5. Secondary hyperparathyroidism. PAST SURGICAL HISTORY: 1. Dialysis access. 2. Renal transplant in 2012 with progressive rejection and failure. ALLERGIES: The patient is allergic to HYDROCODONE. CURRENT HOME MEDICATIONS: The patient does not remember any of his home medications. Family to lupelaureano radha accurate list of medications. FAMILY HISTORY: Positive for hypertension and chronic kidney disease. REVIEW OF SYSTEMS: The following complete review of systems was negative, unless otherwise mentioned in the HPI or below: Constitutional: Weight loss or gain, ability to conduct usual activities. Skin: Rash, itching. Eyes: Double vision, pain. ENT/Mouth: Nose bleeding, neck stiffness, pain, tenderness. Cardiovascular: Palpitations, dyspnea on exertion, orthopnea. Respiratory: Shortness of breath, wheezing, cough, hemoptysis, fever or night sweats. Gastrointestinal: Poor appetite, abdominal pain, heartburn, nausea, vomiting, constipation, or diarr hea. Genitourinary: Urgency, frequency, dysuria, nocturia. Musculoskeletal: Pain, swelling. Neurologic/Psychiatric: Anxiety, depression. Allergy/Immunologic: Skin rash, bleeding tendency. SOCIAL HISTORY: Patient currently lives at home. No smoking, alcohol or drug use. PHYSICAL EXAMINATION: VITAL SIGNS: As discussed above. GENERAL: A 22-year-old male currently undergoing emergent hemodialysis. HEENT: Head is atraumatic, normocephalic. Sclerae anicteric. Moist mucous membranes. No oral lesi on. NECK: Supple, no JVD appreciated. No carotid bruit. LUNGS: Clear to auscultation bilaterally with scattered rales at bases. No wheezing or rhonchi. HEART: S1 and S2 present. Regular rate and rhythm. No heaves or pulsation. No significant murmurs appreciated. ABDOMEN: Soft, nontender, bowel sounds present. EXTREMITIES: Trace edema in bilateral lower extremities. SKIN: Warm and dry. LYMPH NODES: No palpable lymph nodes in the neck. PERIPHERAL VASCULAR: Radial pulses palpable bilaterally. MUSCULOSKELETAL: No joint swelling or tenderness. LABORATORY DATA AND IMAGIN. CBC showed WBC 8.0 with hemoglobin 10.8, hematocrit 32.4, and platelet count of 261. Chemistries showed sodium 141, potassium 5.9, chloride of 97, bicarbonate 29, BUN 40, creatinine 10.99. LFTs in normal range. 2. EKG by my review as discussed above. 3. Echocardiogram earlier this year showed normal left ventricular ejection fraction of 55%-60%. 4. Chest x-ray earlier this year was negative for infiltrate. IMPRESSION: 1. Hyperkalemia with EKG changes. 2. End-stage renal disease, on hemodialysis Friday, Friday, and Friday. 3. 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 4. Hypertension with hypertensive urgency. 5. Chronic anemia secondary to renal insufficiency. 6. Secondary hyperparathyroidism. PLAN: The patient will be monitored on the telemetry unit. The patient will undergo emergent hemodi alysis per Nephrology. We will start him on low potassium diet. Patient was extensively counseled t o be compliant with dietary restrictions. We will resume home medications once confirmed. Telemetry monitoring. We will repeat labs in a.m. Disposition per Nephrology. Plan of care was discussed with the patient in detail. He stated understanding.
[2017-11-09] MEDS: hydrALAZINE 25 MG TAB PO SCH ×2 (15:00→21:30)
[2017-11-09] MEDS: Docusate 100 MG CAP PO SCH (21:30)
[2017-11-09] MEDS: Metoprolol Tartrate 50 MG TAB PO SCH (21:31)
[2017-11-10 05:30] LABS: Anion Gap 18 mmol/L (10-20); BUN (Urea Nitrogen) 36 mg/dL (8.9-20.6); Calc. Creatinine Clearance 23 mL/min (70-130); Calcium 9.2 mg/dL (7.8-10.44); Carbon Dioxide 28 mmol/L (22-29); Chloride 94 mmol/L (98-107); Estimated GFR-MDRD 9
--- NOTE | 2017-11-10 06:11 | CON ---
DATE OF CONSULTATION: 11/09/2017 NEPHROLOGY CONSULT NOTE CONSULTING PHYSICIAN: REASON FOR CONSULTATION: End-stage renal disease. REASON FOR ADMISSION: Hyperkalemia. HISTORY OF PRESENT ILLNESS: A 22-year-old male with a past medical history of end-stage renal diseas e, renal transplant rejection, hypertension, noncompliance, hyperkalemia, came to the hospital with t ingling and numbness and was found to have hyperkalemia with acute T-wave changes in the EKG. The jeff sotck had emergent dialysis. He is feeling better, no nausea, vomiting, no chest pain, no palpitatio n reported. No fever or chills. No abdominal pain. PAST MEDICAL HISTORY: Positive for end-stage renal disease, history of renal transplant, hypertensio n, kidney failure, and cardiomyopathy. PAST SURGICAL HISTORY: Transplant surgery, left arm fistula. HOME MEDICATIONS: Include amlodipine, metoprolol, prednisone, Zoloft, Sensipar, hydralazine, Renvela , Protonix. ALLERGIES: HYDROCODONE. SOCIAL HISTORY: No smoking, alcohol or illicit drug abuse. FAMILY HISTORY: No history of kidney disease. REVIEW OF SYSTEMS: The following complete review of systems was negative, unless otherwise mentioned in the HPI or below: Constitutional: Weight loss or gain, ability to conduct usual activities. Sk in: Rash, itching. Eyes: Double vision, pain. ENT/Mouth: Nose bleeding, neck stiffness, pain, te nderness. Cardiovascular: Palpitations, dyspnea on exertion, orthopnea. Respiratory: Shortness of breath, wheezing, cough, hemoptysis, fever or night sweats. Gastrointestinal: Poor appetite, abdom inal pain, heartburn, nausea, vomiting, constipation, or diarrhea. Genitourinary: Urgency, frequenc y, dysuria, nocturia. Musculoskeletal: Pain, swelling. Neurologic/Psychiatric: Anxiety, depressio n. Allergy/Immunologic: Skin rash, bleeding tendency. PHYSICAL EXAMINATION: GENERAL: Morbidly obese male in no apparent distress. VITAL SIGNS: Temperature 98.5, pulse 70, respiratory 18, blood pressure 150/108. HEENT: Atraumatic, normocephalic. Oral mucosa is moist. NECK: Supple. CARDIOVASCULAR: S1, S2, rate and rhythm. RESPIRATORY: Clear. ABDOMEN: Soft, distended. MUSCULOSKELETAL: 1+ edema. DERMATOLOGIC: No skin rash. PSYCHIATRIC: Mood and affect normal. LABORATORY DATA: Hemoglobin is 10.8, potassium is 5.9, BUN is 47.9. ASSESSMENT AND PLAN: 1. End-stage renal disease, on hemodialysis. 2. Severe hyperkalemia with EKG changes. Plan is to have dialysis. The patient to have emergent di alysis done. 3. Hypertension. 4. Edema. 5. Anemia. Plan is to continue on dialysis as tolerated.
[2017-11-10] MEDS: predniSONE 5 MG TAB PO SCH (08:32)
[2017-11-10] MEDS: Docusate 100 MG CAP PO SCH ×2 (08:33→20:19)
[2017-11-10] MEDS: Metoprolol Tartrate 50 MG TAB PO SCH ×2 (08:33→20:20)
[2017-11-10] MEDS: hydrALAZINE 25 MG TAB PO SCH ×3 (08:33→20:19)
[2017-11-10] MEDS: Famotidine 20 MG TAB PO SCH (08:33)
--- NOTE | 2017-11-10 11:15 | PRG ---
DATE OF SERVICE: 11/10/2017 SUBJECTIVE: This is a 22-year-old gentleman being seen for end-stage renal disease. The patient den ies any nausea, vomiting or chest pain. PHYSICAL EXAMINATION: GENERAL: Patient is awake, alert. VITAL SIGNS: Afebrile, pulse 70, breathing at 16, blood pressure 136/82. HEAD/NECK: Normocephalic. Atraumatic. EYES: EOMI. No deformity. EARS: Clear. No ulcers. NOSE: Intact. No lesions. MOUTH: Clear. No discharge. THROAT: Clear. No exudate. LUNGS: Clear. No crackles. CARDIAC: S1, S2. No rub. ABDOMEN: Benign. BS+. GENITALIA/RECTUM: Pimentel absent. BACK/EXTREMITIES: Edema 0+ Ulcer- NEUROLOGICAL: Alert and motor intact. SKIN: Rash- Bruise- LYMPHATICS: Edema- Ulcer- LABORATORY DATA: Show potassium 4.3. ASSESSMENT AND RECOMMENDATIONS: 1. Stage 6 chronic kidney disease, continue hemodialysis. 2. Hypertension, stable. 3. Anemia, stable. 4. Hyperkalemia. Recommend a low potassium diet. The patient will get dialysis 4 times a week.
--- NOTE | 2017-11-10 15:11 | PDOC.PN ---
- Subjective Encounter Start Date: 11/10/17 Encounter Start Time: 13:00 Patient seen and examined. No CP/SOB. No overnight events - Objective Resuscitation Status: Resuscitation Status FULL:Full Resuscitation MAR Reviewed: Yes Vital Signs & Weight: Vital Signs (12 hours) Temp Pulse Resp BP Pulse Ox 11/10/17 12:14 98.5 F 81 18 134/77 95 11/10/17 08:02 98.0 F 74 18 181/116 H 98 11/10/17 04:00 73 18 136/82 98 Weight Weight 281 lb 1.43 oz I&O: 11/09/17 11/10/17 11/11/17 06:59 06:59 06:59 Intake Total 360 Output Total 3000 Balance -2640 Result Diagrams: 11/09/17 04:58 11/10/17 04:52 EKG Reviewed by me: Yes (Tele SR) Phys Exam - Physical Examination Constitutional: NAD Respiratory: no wheezing, no rhonchi Cardiovascular: RRR, no rub Gastrointestinal: soft, non-tender, positive bowel sounds Musculoskeletal: no edema Neurological: moves all 4 limbs Dx/Plan - Plan cont current plan of care, DVT proph w/SCDs IMPRESSION: 1. Hyperkalemia with EKG changes. s/p emergent dialysis 2. End-stage renal disease, on hemodialysis Friday, Friday, and Friday. 3. 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 4. Hypertension with hypertensive urgency. 5. Chronic anemia secondary to renal insufficiency. 6. Secondary hyperparathyroidism PLAN: * Dialysis per Nephrology * Cont to monitor * AM labs * DC once cleared by Nephrology Review of Systems - Review of Systems Respiratory: negative: Cough, Dry, Shortness of Breath, Hemoptysis, SOB with Excertion, Pleuritic Pain, Sputum, Wheezing Cardiovascular: negative: Chest Pain, Palpitations, Orthopnea, Paroxysmal Noc. Dyspnea, Edema, Light Headedness Gastrointestinal: negative: Nausea, Vomiting, Abdominal Pain, Diarrhea, Constipation, Melena, Hematochezia - Medications/Allergies Allergies/Adverse Reactions: Allergies Allergy/AdvReac Type Severity Reaction Status Date / Time loracarbef [From Lorabid] Allergy Severe Verified 11/09/17 16:11 hydrocodone [From Vicodin] Allergy Verified 11/09/17 16:11 Medications: Current Medications Acetaminophen (Tylenol) 650 mg PO Q4H PRN PRN Reason: Headache/Fever or Pain Clonidine (Catapres) 0.1 mg PO Q4H PRN PRN Reason: Systolic BP > 180 Docusate Sodium (Colace) 100 mg PO BID [facility] Last Admin: 11/10/17 08:33 Dose: 100 mg Famotidine (Pepcid) 20 mg PO QAM [facility] Last Admin: 11/10/17 08:33 Dose: 20 mg Hydralazine HCl (Apresoline) 10 mg SLOW IVP Q4H PRN PRN Reason: SBP Greater Than 180 Hydralazine HCl (Apresoline) 25 mg PO TID [facility] Last Admin: 11/10/17 08:33 Dose: 25 mg Labetalol HCl (Normodyne) 10 mg SLOW IVP Q4H PRN PRN Reason: Systolic BP > 180 Lactulose (Lactulose) 20 gm PO DAILYPRN PRN PRN Reason: Constipation Metoprolol Tartrate (Lopressor) 50 mg PO BID [facility] Last Admin: 11/10/17 08:33 Dose: 50 mg Nitroglycerin (Nitrostat) 0.4 mg PO Q5MIN PRN PRN Reason: Chest Pain Ondansetron HCl (Zofran Odt) 4 mg PO Q6H PRN PRN Reason: Nausea/Vomiting Ondansetron HCl (Zofran) 4 mg IVP Q6H PRN PRN Reason: Nausea/Vomiting Prednisone (Prednisone) 15 mg PO QAM[facility] Last Admin: 11/10/17 08:32 Dose: 15 mg Senna (Senokot) 2 tab PO HSPRN PRN PRN Reason: Constipation Sodium Chloride (Flush - Normal Saline) 10 ml IVF PRN PRN PRN Reason: Saline Flush
[2017-11-11] MEDS: Docusate 100 MG CAP PO SCH ×2 (08:51→22:14)
[2017-11-11] MEDS: hydrALAZINE 25 MG TAB PO SCH ×3 (08:51→22:13)
[2017-11-11] MEDS: Famotidine 20 MG TAB PO SCH (08:51)
[2017-11-11] MEDS: predniSONE 5 MG TAB PO SCH (08:51)
[2017-11-11] MEDS: Metoprolol Tartrate 50 MG TAB PO SCH ×2 (08:51→22:13)
--- NOTE | 2017-11-11 09:23 | PRG ---
DATE OF SERVICE: 11/11/2017 SUBJECTIVE: This is a 22-year-old gentleman being seen for end-stage renal disease. The patient denies any nausea, vomiting or chest pain. PHYSICAL EXAMINATION: GENERAL: Patient is awake, alert. VITAL SIGNS: Afebrile, pulse 80, breathing at 16, blood pressure 135/86. GENERAL APPEARANCE AND MENTAL STATUS: Fair. HEAD/NECK: Normocephalic. Atraumatic. EYES: EOMI. No deformity. EARS: Clear. No ulcers. NOSE: Intact. No lesions. MOUTH: Clear. No discharge. THROAT: Clear. No exudate. LUNGS: Clear. No crackles. CARDIAC: S1, S2. No rub. ABDOMEN: Benign. BS+. GENITALIA/RECTUM: Pimentel absent. BACK/EXTREMITIES: Edema 0+ Ulcer- NEUROLOGICAL: Alert and motor intact. SKIN: Rash- Bruise- LYMPHATICS: Edema- Ulcer- LABORATORY DATA: Potassium is 3.9 ASSESSMENT AND PLAN: 1. Stage 6 chronic kidney disease, continue hemodialysis. 2. Hypertension, stable. 3. Anemia, stable. 4. Medications based on GFR are appropriate. MTDD
[2017-11-11 10:22] LABS: Anion Gap 16 mmol/L (10-20); BUN (Urea Nitrogen) 36 mg/dL (8.9-20.6); Calc. Creatinine Clearance 23 mL/min (70-130); Carbon Dioxide 31 mmol/L (22-29); Chloride 96 mmol/L (98-107); Estimated GFR-MDRD 9
--- NOTE | 2017-11-11 15:49 | CON ---
DATE OF CONSULTATION: 11/11/2017 HISTORY OF PRESENT ILLNESS: The patient is a very pleasant 22-year-old gentleman with a history of cardiomegaly, who was noted to have an abnormal rhythm on telemetry monitoring. The patient has a history of cardiomegaly and a heart murmur. He has history of several renal transplants. The patient is undergoing dialysis. He was seen earlier this year for cardiac evaluation, and was scheduled to undergo an echocardiogram. The patient has a long history of poorly controlled hypertension. The patient was admitted with weakness and aching secondary to hyperkalemia. The patient denies having any palpitations. He denies having any chest discomfort. PAST MEDICAL HISTORY: 1. Cardiomegaly. 2. Hypertension. 3. End-stage renal disease. 4. Anemia. PAST SURGICAL HISTORY: AV fistula, and renal transplantations. ALLERGIES: HYDROCODONE. FAMILY HISTORY: Chronic renal disease, chronic kidney disease. MEDICATIONS: Hydralazine 25 t.i.d., Norvasc 10 b.i.d., Toprol 150 XL p.o. daily , sertraline 25 daily, Renvela two tablets p.o. t.i.d., iron, ferric citrate 630 mg t.i.d., Nexium p.r.n., prednisone 50 mg daily. REVIEW OF SYSTEMS: A 10-point system otherwise unremarkable. No history of easy bruising or bleeding, bright red blood per rectum. PHYSICAL EXAMINATION: GENERAL: Obese gentleman in no acute distress. VITAL SIGNS: Blood pressure 129/77. NECK: No jugular venous distention. LUNGS: Clear to auscultation. HEART: Regular rate and rhythm, normal S1, S2, no murmurs. ABDOMEN: Nondistended. EXTREMITIES: No edema. There is an AV fistula in his left forearm. SKIN: Warm and dry. NEUROLOGIC: Nonfocal. LABORATORY RESULTS: Sodium 139, potassium 3.9, chloride 96, bicarbonate 36, creatinine 9.0. White blood cell count 8.0, hemoglobin 10.8, hematocrit 32.4 and his platelets are 261. His EKG revealed normal sinus rhythm, moderate voltage criteria for left ventricular hypertrophy. Telemetry monitoring revealed normal sinus rhythm with probable artifact. IMPRESSION: 1. Hypertension, poorly controlled. 2. End-stage renal disease. 3. History of renal transplant. 4. Hyperkalemia. PLAN: The patient presents for evaluation of abnormal ECG and telemetry monitoring. This most likely represents artifact. This is not suggestive of ventricular tachycardia. We will check the patient's echocardiogram. We will increase the dose the patient's beta tashi therapy. We will follow this patient with you through his hospitalization. MISBAHD
--- NOTE | 2017-11-11 15:59 | PDOC.PN ---
- Subjective Encounter Start Date: 11/11/17 Encounter Start Time: 08:00 Patient seen and examined. No new complaints. No overnight events - Objective Resuscitation Status: Resuscitation Status FULL:Full Resuscitation MAR Reviewed: Yes Vital Signs & Weight: Vital Signs (12 hours) Temp Pulse Resp BP Pulse Ox 11/11/17 15:23 98.3 F 86 16 139/99 H 97 11/11/17 11:17 98.6 F 80 18 129/77 94 L 11/11/17 08:51 84 11/11/17 08:18 98.7 F 84 16 143/89 H 96 11/11/17 08:00 98 F 84 18 11/11/17 04:00 98.8 F 80 16 135/86 Weight Weight 281 lb 1.43 oz I&O: 11/10/17 11/11/17 11/12/17 06:59 06:59 06:59 Intake Total 360 Output Total 3000 Balance -2640 Result Diagrams: 11/09/17 04:58 11/11/17 09:27 EKG Reviewed by me: Yes (Tele SR, ?NSVT) Phys Exam - Physical Examination Constitutional: NAD Respiratory: no wheezing, no rhonchi Cardiovascular: RRR, no rub Gastrointestinal: soft, non-tender, positive bowel sounds Dx/Plan - Plan DVT proph w/SCDs IMPRESSION: 1. ?NSVT 2. Hyperkalemia with EKG changes. s/p emergent dialysis 3. End-stage renal disease, on hemodialysis Friday, Friday, and Friday. 4. Hypertension with hypertensive urgency. 5. Chronic anemia secondary to renal insufficiency. 6. Secondary hyperparathyroidism/Failed renal transplant, currently on prednisone. PLAN: * Consult Cardiology for ?NSVT * Cont Metoprolol at 50 mg BID * Cont to monitor * Dialysis per Nephrology * Cont to monitor Review of Systems - Review of Systems Respiratory: negative: Cough, Dry, Shortness of Breath, Hemoptysis, SOB with Excertion, Pleuritic Pain, Sputum, Wheezing Cardiovascular: negative: chest pain, palpitations, orthopnea, paroxysmal nocturnal dyspnea, edema, light headedness Gastrointestinal: negative: Nausea, Vomiting, Abdominal Pain, Diarrhea, Constipation, Melena, Hematochezia - Medications/Allergies Allergies/Adverse Reactions: Allergies Allergy/AdvReac Type Severity Reaction Status Date / Time loracarbef [From Lorabid] Allergy Severe Verified 11/09/17 16:11 hydrocodone [From Vicodin] Allergy Verified 11/09/17 16:11 Medications: Current Medications Acetaminophen (Tylenol) 650 mg PO Q4H PRN PRN Reason: Headache/Fever or Pain Clonidine (Catapres) 0.1 mg PO Q4H PRN PRN Reason: Systolic BP > 180 Docusate Sodium (Colace) 100 mg PO BID [facility] Last Admin: 11/11/17 08:51 Dose: 100 mg Famotidine (Pepcid) [facility] Last Admin: 11/11/17 08:51 Dose: 20 mg Hydralazine HCl (Apresoline) 10 mg SLOW IVP Q4H PRN PRN Reason: SBP Greater Than 180 Hydralazine HCl (Apresoline) 25 mg PO TID [facility] Last Admin: 11/11/17 15:20 Dose: 25 mg Labetalol HCl (Normodyne) 10 mg SLOW IVP Q4H PRN PRN Reason: Systolic BP > 180 Lactulose (Lactulose) 20 gm PO DAILYPRN PRN PRN Reason: Constipation Metoprolol Tartrate (Lopressor) 50 mg PO BID [facility] Last Admin: 11/11/17 08:51 Dose: 50 mg Nitroglycerin (Nitrostat) 0.4 mg PO Q5MIN PRN PRN Reason: Chest Pain Ondansetron HCl (Zofran Odt) 4 mg PO Q6H PRN PRN Reason: Nausea/Vomiting Ondansetron HCl (Zofran) 4 mg IVP Q6H PRN PRN Reason: Nausea/Vomiting Prednisone (Prednisone) 15 mg PO QAM[facility] Last Admin: 11/11/17 08:51 Dose: 15 mg Senna (Senokot) 2 tab PO HSPRN PRN PRN Reason: Constipation Sodium Chloride (Flush - Normal Saline) 10 ml IVF PRN PRN PRN Reason: Saline Flush
[2017-11-11] MEDS ORDERED: Fentanyl 100 MCG/2 ML VIAL SLOW IVP SCH (17:00)
[2017-11-12 06:59] LABS: Anion Gap 17 mmol/L (10-20); BUN (Urea Nitrogen) 36 mg/dL (8.9-20.6); Calc. Creatinine Clearance 25 mL/min (70-130); Carbon Dioxide 26 mmol/L (22-29); Chloride 99 mmol/L (98-107); Estimated GFR-MDRD 10
[2017-11-12] MEDS: Docusate 100 MG CAP PO SCH (07:51)
[2017-11-12] MEDS: predniSONE 5 MG TAB PO SCH (07:51)
[2017-11-12] MEDS: Metoprolol Tartrate 50 MG TAB PO SCH (07:51)
[2017-11-12] MEDS: Famotidine 20 MG TAB PO SCH (07:51)
[2017-11-12] MEDS: hydrALAZINE 25 MG TAB PO SCH (07:52)
[2017-11-12 08:22] VITALS: BP 139/90; TEMP 98.1
--- NOTE | 2017-11-12 11:58 | DIS ---
DATE OF DISCHARGE: 11/12/2017 DISCHARGE DISPOSITION: Home. FOLLOWUP: 1. Follow up with primary care physician, Dr. Enoch Zeng in 1 week. 2. Follow up with nephrology, Dr. Arrieta, for hemodialysis. ALLERGIES: Patient is allergic to HYDROCODONE. DISCHARGE MEDICATIONS: Same as admission medication. 1. Amlodipine 10 mg daily. 2. Metoprolol tartrate 150 mg daily. 3. Prednisone 15 mg daily. 4. Zoloft 25 mg daily. 5. Renvela 2 tablets 3 times daily with meals. 6. Vitamin B complex daily. 7. Nexium 20 mg daily as needed. 8. Ferric citrate as directed. INPATIENT CONSULTANTS: 1. Nephrology, Dr. Arrieta. 2. Cardiology, Dr. José Pierre. BRIEF HOSPITAL COURSE: Patient is a 22-year-old male with end-stage renal disease on hemodialysis wh o presented to the hospital with generalized fatigue. His workup was consistent with hyperkalemia wi th potassium of 5.9. He received an emergent hemodialysis per Nephrology. He was monitored on telem etry due to hyperkalemia. While on the monitor, patient had 13 beats of questionable nonsustained ve ntricular tachycardia. He was evaluated by Cardiology, Dr. José Pierre. Per Cardiology, Dr. José Pierre, this is not suggestive of ventricular tachycardia. This most likely represents artifact. No changes in his medications were made. He was advised to follow up with his primary care physician . Beta blockers will be continued. His echocardiogram showed ejection fraction 55-60% with severe c oncentric left ventricular hypertrophy, mild to moderate mitral regurgitation and mild tricuspid regu rgitation. He has been cleared by consultants for discharge. He will undergo hemodialysis today as outpatient. FINAL DIAGNOSES: 1. Generalized weakness secondary to electrolyte abnormality. 2. Hyperkalemia with EKG changes status post emergent hemodialysis. 3. End-stage renal disease, on hemodialysis Friday, Friday, Friday. 4. Hypertension with hypertensive urgency on admission, improved after resuming his home medications and dialysis. 5. Chronic anemia secondary to renal insufficiency. 6. Secondary hyperparathyroidism. 7. Failed renal transplant, on chronic prednisone. 8. Obesity with a BMI of 35.2. 9. Chronic anemia secondary to renal insufficiency. Plan of care was discussed with the patient in detail. He stated understanding.
--- NOTE | 2017-11-12 14:06 | PRG ---
NEPHROLOGY PROGRESS NOTE DATE OF SERVICE: 11/12/2017 SUBJECTIVE: This is a 22-year-old gentleman being seen for end-stage renal disease. Patient denies any nausea, vomiting or chest pain. OBJECTIVE: GENERAL: Patient is awake and alert. VITAL SIGNS: Afebrile, pulse 70, breathing at 16 and blood pressure 139/90. HEAD/NECK: Normocephalic. Atraumatic. EYES: EOMI. No deformity. EARS: Clear. No ulcers. NOSE: Intact. No lesions. MOUTH: Clear. No discharge. THROAT: Clear. No exudate. LUNGS: Clear. No crackles. CARDIAC: S1, S2. No rub. ABDOMEN: Benign. BS+. GENITALIA/RECTUM: Pimentel absent. BACK/EXTREMITIES: Edema 0+. Ulcer-. NEUROLOGICAL: Alert and motor intact. SKIN: Rash-. Bruise-. LYMPHATICS: Edema-. Ulcer-. LABORATORY DATA: Showed a potassium of 4.2. ASSESSMENT AND RECOMMENDATIONS: 1. Stage 6 chronic kidney disease. Plan dialysis today. 2. Hypertension, stable. 3. Anemia, stable. 4. Hyperkalemia, stable. I advised the patient to dialyze 4 times a week and watch potassium diet a nd noncompliance with diet is a major significant issue, which can result in morbidity and mortality. This was explained to the patient at length. No family member was available.
--- NOTE | 2017-11-22 11:18 | EKG ---
Test Reason : BODYACHE Blood Pressure : / mmHG Vent. Rate : 083 BPM Atrial Rate : 083 BPM P-R Int : 138 ms QRS Dur : 098 ms QT Int : 382 ms P-R-T Axes : 019 020 025 degrees QTc Int : 448 ms Normal sinus rhythm Moderate voltage criteria for LVH, may be normal variant Borderline ECG Confirmed by TYLOR Montes, LORIE ([id number]), newspaper editor DERREK GARCIA ([id number]) on 11/22/2017 11:18:19 AM Referred By: Confirmed By:LORIE SNIDER M.D.
== END 2017-11-12 11:51 | disposition home or self-care (01) | DRG 640 ==
LOC: ERS 04:37 → 2SW 08:51
PROVIDERS: ADMIT Internal Medicine; ATTEND Internal Medicine
PROC: 5A1D70Z Performance of Urinary Filtration, Intermittent, Less than 6 Hours Per Day (ICD-10-PCS; principal; 2017-11-11)
DX: E87.5 Hyperkalemia (principal); N18.6 End stage renal disease; T86.12 Kidney transplant failure; I12.0 Hypertensive chronic kidney disease with stage 5 chronic kidney disease or end stage renal disease; N25.81 Secondary hyperparathyroidism of renal origin; I42.9 Cardiomyopathy, unspecified; Z99.2 Dependence on renal dialysis; D63.1 Anemia in chronic kidney disease; I16.0 Hypertensive urgency; E66.9 Obesity, unspecified; Z79.52 Long term (current) use of systemic steroids; I08.1 Rheumatic disorders of both mitral and tricuspid valves; Z68.35 Body mass index [BMI] 35.0-35.9, adult
CPT/HCPCS: 36415; 80048; 80053; 85025; 87340; 90935; 93005; 93306; 94640; 96374; 96375; G0257; J1815; J2270; J3010; J7611; Q0162

== ENCOUNTER 2017-11-20 11:37 | Emergency (ER) | payer OTHER ==
--- NOTE | 2017-11-20 13:20 | RAD ---
PA AND LATERAL CHEST: Indication: Body aches, fever, headache. FINDINGS: There is stable cardiomegaly. No airspace consolidation or pleural effusion is evident. No acute osse ous abnormality is evident. IMPRESSION: Stable cardiomegaly. No definite acute cardiopulmonary abnormality demonstrated when compared to a pr ior dated 01-06-13. POS: [facility]
== END 2017-11-20 13:10 | disposition home or self-care (01) ==
LOC: ERS 11:37
DX: B34.9 Viral infection, unspecified (principal); I42.9 Cardiomyopathy, unspecified; I10 Essential (primary) hypertension; Z79.899 Other long term (current) drug therapy
CPT/HCPCS: 71020; 87804

== ENCOUNTER 2017-11-23 02:01 | Observation (INO) | payer OTHER ==
[2017-11-23 04:02] LABS: #Basophils 0.1 thou/uL (0.0-0.2); #Eosinphils 0.4 thou/uL (0.0-0.7); #Lymphocytes 2.6 thou/uL (1.20-3.40); #Monocytes 1.3 thou/uL (0.11-0.59); #Neutrophils 7.1 thou/uL (1.40-6.50); %Basophils 0.9 % (0.0-1.0); %Eosinophils 3.9 % (0.0-10.0); %Lymphocytes 22.7 % (28.0-48.0); %Monocytes 11.2 % (0.0-4.0); %Neutrophils 61.4 % (31.0-61.0); Hemoglobin 11.5 g/dL (14.0-18.0); Mean Corpuscular HGB CONC 33.6 g/dL (32.0-36.0); Mean Corpuscular Hemoglobin 32.9 pg (25.0-35.0); Mean Corpuscular Volume 97.9 fl (77.0-87.0); Mean Platelet Volume 8.1 fL (7.4-10.4); Platelet Count 216 thou/uL (130-400); RBC Distribution Width 13.2 % (11.5-14.5); Red Blood Cell (RBC) Count 3.49 mill/uL (4.00-5.20); White Blood Cell (WBC) Count 11.5 thou/uL (4.8-10.8)
[2017-11-23] MEDS ORDERED: Morphine 4 MG/ML VIAL ONE (04:02)
[2017-11-23 04:04] LABS: INR-International Normal Ratio 1.1; Prothrombin Time 14.5 SEC (12.0-14.7)
[2017-11-23 04:15] LABS: ALT (SGPT) 9 U/L (8-55); AST (SGOT) 18 U/L (5-34); Albumin 4.8 g/dL (3.5-5.0); Alkaline Phosphatase 81 U/L (Less than 750); Anion Gap 21 mmol/L (10-20); BUN (Urea Nitrogen) 28 mg/dL (8.9-20.6); Bilirubin, Total 0.5 mg/dL (0.2-1.2); Calc. Creatinine Clearance 0 mL/min (70-130); Calcium 10.7 mg/dL (7.8-10.44); Carbon Dioxide 27 mmol/L (22-29); Chloride 97 mmol/L (98-107); Estimated GFR-MDRD 9; Globulin 4.1 g/dL (2.4-3.5); Glucose 90 mg/dL (70-105); Potassium 4.9 mmol/L (3.5-5.1); Protein, Total 8.9 g/dL (6.0-8.3); Sodium 140 mmol/L (136-145)
[2017-11-23] MEDS ORDERED: Ketorolac Tromethamine 30 MG/ML VIAL ONE (05:36)
[2017-11-23] MEDS ORDERED: Ondansetron ODT 4 MG TAB SL PRN (07:10)
[2017-11-23] MEDS ORDERED: Acetaminophen 325 MG TAB PO PRN ×2 (07:10→12:15)
[2017-11-23] MEDS ORDERED: Ondansetron HCl/PF 4 MG/2 ML Vial IVP PRN ×2 (07:10→12:15)
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
[2017-11-23] MEDS ORDERED: traMADol HCl 50 MG TAB PO PRN ×2 (08:43)
[2017-11-23] MEDS ORDERED: Morphine 4 MG/ML Carpuject IVP PRN (08:43)
[2017-11-23] MEDS ORDERED: Morphine 5 mg/5 ml in 0.9% NaCl/PF SYRINGE SLOW IVP PRN ×2 (08:52→08:53)
[2017-11-23] MEDS ORDERED: FLU VACC QS2017-18 36 mo. & older 0.5 ML SYRINGE IM ONE (09:00)
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
[2017-11-23] MEDS ORDERED: Eucerin (Mineral Oil/Petrolatum,White) 30 gm Jar TOP PRN (12:15)
[2017-11-23] MEDS ORDERED: Chloraseptic Spray 180 ml Bottle PO PRN (12:15)
[2017-11-23] MEDS ORDERED: Diabetic Tussin 200 MG/10 ML UDCUP PO PRN (12:15)
[2017-11-23] MEDS ORDERED: hydrALAZINE 20 MG/ML VIAL SLOW IVP PRN (12:15)
[2017-11-23] MEDS ORDERED: Milk Of Magnesia 30 ML UDCUP PO PRN (12:15)
[2017-11-23] MEDS ORDERED: Loratadine 10 MG TAB PO PRN (12:15)
[2017-11-23] MEDS ORDERED: Senokot 8.6 MG TAB PO PRN (12:15)
[2017-11-23] MEDS ORDERED: Mag-Al 1200 mg/1200 mg/30 ML UDCUP PO PRN (12:15)
[2017-11-23] MEDS ORDERED: Artificial Tears 18 DROP/0.9 ML EA EYE PRN (12:15)
[2017-11-23] MEDS ORDERED: Loperamide HCl 2 MG CAP PO PRN (12:15)
[2017-11-23] MEDS ORDERED: Ondansetron ODT 4 MG TAB PO PRN (12:15)
[2017-11-23] MEDS ORDERED: Sodium Chloride 0.65% Nasal 44 ML BOT EA NARE PRN (12:15)
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
[2017-11-23] MEDS ORDERED: Amlodipine 10 MG TAB PO SCH (13:45)
[2017-11-23] MEDS ORDERED: Metoprolol Tartrate 100 MG TAB PO SCH (13:45)
[2017-11-23] MEDS ORDERED: predniSONE 5 MG TAB PO SCH (14:55)
[2017-11-23] MEDS ORDERED: ISOVUE-370 76%-LOCM 1 ML ONE (17:02)
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
[2017-11-24 06:04] LABS: #Lymphocytes 1.6 thou/uL (1.20-3.40); #Monocytes 0.7 thou/uL (0.11-0.59); #Neutrophils 4.8 thou/uL (1.40-6.50); %Basophils 0.1 % (0.0-1.0); %Eosinophils 0.6 % (0.0-10.0); %Lymphocytes 22.4 % (28.0-48.0); %Monocytes 9.6 % (0.0-4.0); %Neutrophils 67.3 % (31.0-61.0); Hemoglobin 9.3 g/dL (14.0-18.0); Mean Corpuscular HGB CONC 33.4 g/dL (32.0-36.0); Mean Corpuscular Hemoglobin 32.4 pg (25.0-35.0); Mean Corpuscular Volume 97.1 fl (77.0-87.0); Mean Platelet Volume 7.7 fL (7.4-10.4); Platelet Count 147 thou/uL (130-400); RBC Distribution Width 12.9 % (11.5-14.5); Red Blood Cell (RBC) Count 2.88 mill/uL (4.00-5.20); White Blood Cell (WBC) Count 7.1 thou/uL (4.8-10.8)
[2017-11-24 06:29] LABS: Albumin 3.8 g/dL (3.5-5.0); Anion Gap 19 mmol/L (10-20); BUN (Urea Nitrogen) 51 mg/dL (8.9-20.6); BUN/Creatinine Ratio 4.27; Calc. Creatinine Clearance 17 mL/min (70-130); Calcium 9.1 mg/dL (7.8-10.44); Carbon Dioxide 26 mmol/L (22-29); Chloride 95 mmol/L (98-107); Estimated GFR-MDRD 7; Glucose 113 mg/dL (70-105); Phosphorus 8.3 mg/dL (2.3-4.7); Potassium 5.2 mmol/L (3.5-5.1); Sodium 135 mmol/L (136-145)
[2017-11-24] MEDS ORDERED: predniSONE 5 MG TAB PO SCH (08:00)
[2017-11-24] MEDS ORDERED: Amlodipine 10 MG TAB PO SCH (09:00)
[2017-11-24] MEDS ORDERED: Metoprolol Tartrate 100 MG TAB PO SCH (09:00)
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
[2017-11-24 17:06] VITALS: BP 128/78; TEMP 98.8
--- NOTE | 2017-11-24 21:03 | PRG ---
DATE OF SERVICE: 11/24/2017 SUBJECTIVE: Patient was seen and examined at bedside and overnight events noted. Patient denies any shortness of breath or chest pain or palpitation. No history of nausea or vomiting or diarrhea or f ever or chills or cramps. OBJECTIVE: GENERAL: This is an obese male in no apparent distress. VITAL SIGNS: Temperature 97.5, pulse 68, respiratory rate 18, blood pressure 135/85. HEENT: Atraumatic, normocephalic. Oral mucosa is moist. NECK: Supple. CARDIOVASCULAR: S1, S2 heard. Rate and rhythm regular. RESPIRATORY: Clear to auscultation. GASTROINTESTINAL: Abdomen is soft. MUSCULOSKELETAL: No tenderness. No edema. DERMATOLOGIC: No skin rash. NEUROLOGIC: Alert and awake and oriented x3. No focal neurologic deficits. Moving all the extremiti es. PSYCHIATRIC: Mood and affect normal. LABORATORY DATA: Potassium is 5.2, BUN is 51, creatinine 11.9. ASSESSMENT AND PLAN: 1. End-stage renal disease, continue on hemodialysis as tolerated. 2. The patient was seen during dialysis and was able to without much difficulty. No pain repo rted, no tenderness, no bleeding seen. 3. Anemia. Monitor most likely from blood loss. 4. Edema, remove fluid with dialysis as tolerated. 5. Hypertension, stable. 6. Hyperkalemia, limit potassium. Plan is to continue on dialysis as tolerated.
--- NOTE | 2017-11-29 16:06 | EKG ---
Test Reason : Blood Pressure : / mmHG Vent. Rate : 083 BPM Atrial Rate : 083 BPM P-R Int : 134 ms QRS Dur : 090 ms QT Int : 370 ms P-R-T Axes : 017 008 026 degrees QTc Int : 434 ms Normal sinus rhythm Possible Left atrial enlargement Left ventricular hypertrophy Abnormal ECG Confirmed by BARBARA MORENO D.O. ([id number]), society editor ZENA JOSEPH ([id number]) on 11/29/2017 4:06:30 PM Referred By: Confirmed By:BARBARA MORENO D.O.
== END 2017-11-24 18:23 | disposition home or self-care (01) ==
LOC: ERS 02:01 → 3SE 06:46
PROVIDERS: ADMIT Internal Medicine Infectious Disease; ATTEND Internal Medicine Infectious Disease
DX: T14.90XA Injury, unspecified, initial encounter (principal); S40.022A Contusion of left upper arm, initial encounter; M79.622 Pain in left upper arm; N25.81 Secondary hyperparathyroidism of renal origin; D63.1 Anemia in chronic kidney disease; D53.9 Nutritional anemia, unspecified; E66.9 Obesity, unspecified; K21.9 Gastro-esophageal reflux disease without esophagitis; I13.11 Hypertensive heart and chronic kidney disease without heart failure, with stage 5 chronic kidney disease, or end stage renal disease; N18.6 End stage renal disease; F41.8 Other specified anxiety disorders; T86.12 Kidney transplant failure; R09.02 Hypoxemia; R60.9 Edema, unspecified; E87.5 Hyperkalemia; V47.5XXA Car driver injured in collision with fixed or stationary object in traffic accident, initial encounter; Z99.2 Dependence on renal dialysis; Z79.52 Long term (current) use of systemic steroids; Z79.899 Other long term (current) drug therapy; Z88.5 Allergy status to narcotic agent; Z88.1 Allergy status to other antibiotic agents
CPT/HCPCS: 36415; 71010; 80053; 80069; 85025; 85610; 85730; 93005; 93923; 96374; 96375; 96376; G0378; J1885; J2270

== ENCOUNTER 2017-11-28 21:59 | Emergency (ER) | payer OTHER ==
[2017-11-29 00:07] LABS: #Eosinphils 0.4 thou/uL (0.0-0.7); #Lymphocytes 1.6 thou/uL (1.20-3.40); #Monocytes 0.8 thou/uL (0.11-0.59); #Neutrophils 4.4 thou/uL (1.40-6.50); %Basophils 0.6 % (0.0-1.0); %Eosinophils 5.1 % (0.0-10.0); %Lymphocytes 21.7 % (28.0-48.0); %Monocytes 11.5 % (0.0-4.0); %Neutrophils 61.1 % (31.0-61.0); Hemoglobin 10.5 g/dL (14.0-18.0); Mean Corpuscular HGB CONC 33.9 g/dL (32.0-36.0); Mean Corpuscular Hemoglobin 32.9 pg (25.0-35.0); Platelet Count 185 thou/uL (130-400); RBC Distribution Width 13.1 % (11.5-14.5); Red Blood Cell (RBC) Count 3.19 mill/uL (4.00-5.20); White Blood Cell (WBC) Count 7.2 thou/uL (4.8-10.8)
[2017-11-29 00:30] LABS: ALT (SGPT) Less than 7 U/L (8-55); AST (SGOT) 10 U/L (5-34); Albumin 4.5 g/dL (3.5-5.0); Alkaline Phosphatase 90 U/L (Less than 750); Anion Gap 18 mmol/L (10-20); BUN (Urea Nitrogen) 25 mg/dL (8.9-20.6); Bilirubin, Total 0.4 mg/dL (0.2-1.2); Calc. Creatinine Clearance 0 mL/min (70-130); Calcium 9.8 mg/dL (7.8-10.44); Carbon Dioxide 30 mmol/L (22-29); Chloride 96 mmol/L (98-107); Estimated GFR-MDRD 10; Globulin 3.5 g/dL (2.4-3.5); Glucose 101 mg/dL (70-105); Potassium 3.9 mmol/L (3.5-5.1); Sodium 140 mmol/L (136-145)
== END 2017-11-29 00:49 | disposition left against medical advice (07) ==
LOC: ERS 21:59
DX: Z53.21 Procedure and treatment not carried out due to patient leaving prior to being seen by health care provider (principal)
CPT/HCPCS: 36415; 80053; 85025

== ENCOUNTER 2018-01-28 20:36 | Emergency (ER) | payer OTHER ==
[2018-01-28] MEDS ORDERED: Ketorolac Tromethamine 30 MG/ML VIAL ONE (21:56)
[2018-01-28] MEDS ORDERED: Morphine 2 MG/ML SYRINGE ONE (21:56)
[2018-01-28 22:17] LABS: #Eosinphils 0.2 thou/uL (0.0-0.7); #Lymphocytes 1.8 thou/uL (1.20-3.40); #Neutrophils 5.2 thou/uL (1.40-6.50); %Basophils 0.1 % (0.0-1.0); %Eosinophils 1.9 % (0.0-10.0); %Lymphocytes 21.7 % (28.0-48.0); %Monocytes 11.9 % (0.0-4.0); %Neutrophils 64.4 % (31.0-61.0); Hemoglobin 12.4 g/dL (14.0-18.0); Mean Corpuscular HGB CONC 35.5 g/dL (32.0-36.0); Mean Corpuscular Volume 93.1 fl (77.0-87.0); Mean Platelet Volume 7.9 fL (7.4-10.4); Platelet Count 178 thou/uL (130-400); RBC Distribution Width 12.8 % (11.5-14.5); Red Blood Cell (RBC) Count 3.75 mill/uL (4.00-5.20); White Blood Cell (WBC) Count 8.1 thou/uL (4.8-10.8)
[2018-01-28 22:23] LABS: INR-International Normal Ratio 1.1; PTT 35.1 SEC (22.9-36.1); Prothrombin Time 14.3 SEC (12.0-14.7)
[2018-01-28 22:27] LABS: ALT (SGPT) Less than 7 U/L (8-55); AST (SGOT) 11 U/L (5-34); Albumin 4.4 g/dL (3.5-5.0); Alkaline Phosphatase 89 U/L (Less than 750); Anion Gap 17 mmol/L (10-20); BUN (Urea Nitrogen) 21 mg/dL (8.9-20.6); Bilirubin, Total 0.3 mg/dL (0.2-1.2); Calc. Creatinine Clearance 0 mL/min (70-130); Calcium 9.9 mg/dL (7.8-10.44); Carbon Dioxide 32 mmol/L (22-29); Chloride 93 mmol/L (98-107); Estimated GFR-MDRD 11; Globulin 3.9 g/dL (2.4-3.5); Glucose 95 mg/dL (70-105); Potassium 4.1 mmol/L (3.5-5.1); Protein, Total 8.3 g/dL (6.0-8.3); Sodium 138 mmol/L (136-145)
[2018-01-28] MEDS ORDERED: Morphine 10 MG/ML VIAL ONE (22:37)
--- NOTE | 2018-01-28 23:02 | ULT ---
ULTRASOUND LEFT UPPER EXTREMITY ARTERIAL DOPPLER 01/28/18 HISTORY: Pain. COMPARISON: Ultrasound 11/23/17 as well as CTA. FINDINGS: The left upper extremity fistula is mildly patent. No thrombosis. There are numerous collateral vesse ls. IMPRESSION: Intact patent fistula. POS: CHARY
[2018-01-28] MEDS ORDERED: diphenhydrAMINE 25 MG CAP ONE (23:17)
== END 2018-01-28 23:32 | disposition home or self-care (01) ==
LOC: ERS 20:36
DX: G89.18 Other acute postprocedural pain (principal); M79.602 Pain in left arm; I10 Essential (primary) hypertension; I42.9 Cardiomyopathy, unspecified; F41.9 Anxiety disorder, unspecified; Z79.899 Other long term (current) drug therapy
CPT/HCPCS: 80053; 85025; 85610; 85730; 93923; 96374; 96375; 96376; J1885; J2270

== ENCOUNTER 2018-01-30 15:05 | Emergency (ER) | payer MEDICAID, OTHER ==
[2018-01-30] MEDS ORDERED: Morphine 4 MG/ML VIAL ONE ×4 (15:19→18:10)
[2018-01-30] MEDS ORDERED: Ondansetron HCl/PF 4 MG/2 ML Vial ONE (15:52)
[2018-01-30 16:13] LABS: #Eosinphils 0.6 thou/uL (0.0-0.7); #Lymphocytes 2.6 thou/uL (1.20-3.40); #Monocytes 1.3 thou/uL (0.11-0.59); #Neutrophils 5.4 thou/uL (1.40-6.50); %Basophils 0.2 % (0.0-1.0); %Lymphocytes 26.5 % (28.0-48.0); %Monocytes 12.8 % (0.0-4.0); %Neutrophils 54.5 % (31.0-61.0); Hemoglobin 10.2 g/dL (14.0-18.0); Mean Corpuscular HGB CONC 33.9 g/dL (32.0-36.0); Mean Corpuscular Hemoglobin 31.6 pg (25.0-35.0); Mean Corpuscular Volume 93.1 fl (77.0-87.0); Mean Platelet Volume 7.8 fL (7.4-10.4); Platelet Count 201 thou/uL (130-400); RBC Distribution Width 12.7 % (11.5-14.5); Red Blood Cell (RBC) Count 3.23 mill/uL (4.00-5.20); White Blood Cell (WBC) Count 9.9 thou/uL (4.8-10.8)
[2018-01-30 16:19] LABS: INR-International Normal Ratio 1.1; Prothrombin Time 14.7 SEC (12.0-14.7)
[2018-01-30 16:20] LABS: PTT 48.4 SEC (22.9-36.1)
[2018-01-30] MEDS ORDERED: Lorazepam 2 MG/ML VIAL ONE (16:23)
[2018-01-30 16:41] LABS: Anion Gap 20 mmol/L (10-20); BUN (Urea Nitrogen) 41 mg/dL (8.9-20.6); Calc. Creatinine Clearance 0 mL/min (70-130); Calcium 9.6 mg/dL (7.8-10.44); Carbon Dioxide 25 mmol/L (22-29); Chloride 92 mmol/L (98-107); Estimated GFR-MDRD 5; Glucose 108 mg/dL (70-105); Potassium 5.4 mmol/L (3.5-5.1); Sodium 132 mmol/L (136-145)
--- NOTE | 2018-01-30 22:49 | CON ---
DATE OF CONSULTATION: 01/30/2018 HISTORY OF PRESENT ILLNESS: Mr. Martínez is a 22-year-old male who presents status post appears to be AV shunt or AV fistula performed in [place] by Dr. Bolden on Friday of this week. The patient has a ch ronic history of dialysis, had a previous fistula performed by Dr. Arciniega several years ago. The pat josé manuel is on chronic dialysis. He has a history of kidney transplant. He has history of cardiomyopath y and hypertension. The patient is currently in bed, stating his pain is between 9 and 10/10 based o n position in forearm. I was consulted by the ER for evaluation of the patient for possible compartm ent syndrome. PAST MEDICAL HISTORY: Includes as above. Cardiomyopathy; hypertension; kidney failure, on dialysis. PAST SURGICAL HISTORY: Right kidney transplant, left arm fistula, and this most recent left AV fistu la on Friday. PSYCHIATRIC HISTORY: Anxiety. MEDICATIONS: Please see list for details. ALLERGIES: HYDROCODONE, LORABID, LORACARBEF, AND VICODIN. SOCIAL HISTORY: Nonsmoker, nondrinker, nonalcoholic. PHYSICAL EXAMINATION: VITAL SIGNS: 115/44, 89, 96%, 20, pain 10/10, oral 98.4. GENERAL: Alert and oriented -[place] male resting in bed, in obvious pain. Discussing his a rm in pain. EXTREMITIES: Left upper extremity: The patient has swollen anterior arm with a previous incision, w hich is glued shut. It is a linear incision along the medial border of the patient's biceps in the a rm. He has a distal bulging AV fistula. The patient has sensation and motor intact to his left uppe r extremity to his forearm with finger flexion, wrist extension and flexion. The patient has pain wi th elbow flexion. The patient has soft posterior triceps as well as deltoid. The patient does have a tense anterior arm, which appears to be subcu. He had a dopplerable ulnar and radial pulses. ASSESSMENT AND PLAN: The patient is 3 days status post AV shunt with 2 attempts at dialysis with a s wollen left arm. I feel like potentially this is either leakage of the patient's shunt versus potent ially dialysis dialysate being intruded in the arm, appears to be subcutaneous likely where the site of the fistula is. The patient got ice and elevated his arm. He has currently got IV and receiving pain medications. He states he is improved with pain control. After discussion with Dr. Arciniega, we feel the patient to be transferred to his treating doctor to help with implementation of decompressio n of the arm and potential revision of his surgery from Friday.
== END 2018-01-30 18:55 ==
LOC: ERS 15:05
DX: T82.9XXA Unspecified complication of cardiac and vascular prosthetic device, implant and graft, initial encounter (principal); I10 Essential (primary) hypertension; F41.9 Anxiety disorder, unspecified; Z79.899 Other long term (current) drug therapy
CPT/HCPCS: 80048; 85025; 85610; 85730; 96374; 96376; J0696; J2060; J2270; J2405; J3370

== ENCOUNTER 2018-02-06 17:44 | Emergency (ER) | payer MEDICAID ==
[2018-02-06] MEDS ORDERED: traMADol HCl 50 MG TAB ONE (19:25)
[2018-02-06 19:37] LABS: #Eosinphils 0.3 thou/uL (0.0-0.7); #Lymphocytes 1.4 thou/uL (1.20-3.40); #Monocytes 0.9 thou/uL (0.11-0.59); #Neutrophils 5.2 thou/uL (1.40-6.50); %Basophils 0.5 % (0.0-1.0); %Eosinophils 4.2 % (0.0-10.0); %Monocytes 11.8 % (0.0-4.0); %Neutrophils 65.4 % (31.0-61.0); Hemoglobin 8.9 g/dL (14.0-18.0); Mean Corpuscular Hemoglobin 31.2 pg (25.0-35.0); Mean Corpuscular Volume 94.6 fl (77.0-87.0); Mean Platelet Volume 7.1 fL (7.4-10.4); Platelet Count 252 thou/uL (130-400); RBC Distribution Width 12.5 % (11.5-14.5); Red Blood Cell (RBC) Count 2.86 mill/uL (4.00-5.20); White Blood Cell (WBC) Count 7.9 thou/uL (4.8-10.8)
[2018-02-06 19:51] LABS: ALT (SGPT) Less than 7 U/L (8-55); AST (SGOT) 10 U/L (5-34); Albumin 4.1 g/dL (3.5-5.0); Alkaline Phosphatase 65 U/L (Less than 750); Anion Gap 20 mmol/L (10-20); BUN (Urea Nitrogen) 25 mg/dL (8.9-20.6); Bilirubin, Total 0.5 mg/dL (0.2-1.2); Calc. Creatinine Clearance 0 mL/min (70-130); Carbon Dioxide 29 mmol/L (22-29); Chloride 93 mmol/L (98-107); Estimated GFR-MDRD 9; Globulin 4.1 g/dL (2.4-3.5); Glucose 77 mg/dL (70-105); Potassium 3.8 mmol/L (3.5-5.1); Protein, Total 8.2 g/dL (6.0-8.3); Sodium 138 mmol/L (136-145)
[2018-02-06] MEDS ORDERED: Ondansetron ODT 4 MG TAB ONE (21:13)
[2018-02-06] MEDS ORDERED: Amlodipine 5 MG TAB ONE (21:13)
[2018-02-06] MEDS ORDERED: Metoprolol Tartrate 50 MG TAB ONE (21:13)
--- NOTE | 2018-02-06 22:19 | ULT ---
LEFT UPPER EXTREMITY VENOUS DOPPLER ULTRASOUND: 02/06/18 HISTORY: Dialysis fistula with pain and swelling. TECHNIQUE: Multiplanar keller scale sonographic imaging of the venous structures of the left upper extremity obtai viet with color flow and spectral analysis. FINDINGS: The left internal jugular vein, left subclavian vein, and left axillary vein are patent. Brachial and basilic veins could not be visualized per the performing food processing chemist. There is a promine nt patent vascular structure in the upper arm labeled by the food processing chemist as the dialysis access. At t he elbow, this measures up to 2.8 cm in transverse dimension and extends into the forearm measuring 3 cm. This dialysis fistula is patent. There is an oblong 5.1 x 3.5 x 2.2 cm heterogeneously hyperechoic lesion in the "medial upper arm" ad jacent to the dialysis access which is nonspecific and demonstrates no internal blood flow. This sugg ests a hematoma. IMPRESSION: Sonographic evidence of dialysis fistula patency. 5.1 x 3.5 x 2.2 cm oval hyperechoic lesion adjacent to the fistula in the medial left upper arm noted, nonspecific, likely on the basis of hematoma. POS: [facility]
== END 2018-02-07 02:57 | disposition short-term general hospital (02) ==
LOC: ERS 17:44
DX: T82.7XXA Infection and inflammatory reaction due to other cardiac and vascular devices, implants and grafts, initial encounter (principal); F41.9 Anxiety disorder, unspecified; I12.9 Hypertensive chronic kidney disease with stage 1 through stage 4 chronic kidney disease, or unspecified chronic kidney disease; N18.9 Chronic kidney disease, unspecified; Z99.2 Dependence on renal dialysis; Z94.0 Kidney transplant status; Z79.899 Other long term (current) drug therapy
CPT/HCPCS: 36415; 80053; 83605; 85025; 85652; 86140; 96365; J3370; Q0162

== ENCOUNTER 2018-02-15 20:40 | Emergency (ER) | payer MEDICAID, OTHER ==
[2018-02-15 22:13] LABS: #Basophils 0.1 thou/uL (0.0-0.2); #Eosinphils 0.6 thou/uL (0.0-0.7); #Lymphocytes 2.3 thou/uL (1.20-3.40); #Monocytes 0.9 thou/uL (0.11-0.59); #Neutrophils 3.2 thou/uL (1.40-6.50); %Basophils 0.8 % (0.0-1.0); %Eosinophils 8.7 % (0.0-10.0); %Lymphocytes 32.6 % (28.0-48.0); %Monocytes 13.1 % (0.0-4.0); %Neutrophils 44.8 % (31.0-61.0); Hemoglobin 8.6 g/dL (14.0-18.0); Mean Corpuscular HGB CONC 33.9 g/dL (32.0-36.0); Mean Corpuscular Hemoglobin 32.3 pg (25.0-35.0); Mean Corpuscular Volume 95.4 fl (77.0-87.0); Platelet Count 319 thou/uL (130-400); RBC Distribution Width 13.1 % (11.5-14.5); Red Blood Cell (RBC) Count 2.65 mill/uL (4.00-5.20); White Blood Cell (WBC) Count 7.2 thou/uL (4.8-10.8)
[2018-02-15 22:31] LABS: Anion Gap 15 mmol/L (10-20); BUN (Urea Nitrogen) 36 mg/dL (8.9-20.6); Calc. Creatinine Clearance 0 mL/min (70-130); Calcium 9.1 mg/dL (7.8-10.44); Carbon Dioxide 31 mmol/L (22-29); Chloride 99 mmol/L (98-107); Estimated GFR-MDRD 7; Glucose 82 mg/dL (70-105); Potassium 4.4 mmol/L (3.5-5.1); Sodium 141 mmol/L (136-145)
== END 2018-02-15 22:44 | disposition home or self-care (01) ==
LOC: ERS 20:40
DX: L73.9 Follicular disorder, unspecified (principal); I10 Essential (primary) hypertension; F41.9 Anxiety disorder, unspecified; Z79.899 Other long term (current) drug therapy
CPT/HCPCS: 36415; 80048; 85025; 99283

== ENCOUNTER 2018-02-17 03:55 | Emergency (ER) | payer OTHER ==
[2018-02-17] MEDS ORDERED: hydrOXYzine 25 MG TAB ONE (04:13)
== END 2018-02-17 04:42 | disposition home or self-care (01) ==
LOC: ERS 03:55
DX: L25.9 Unspecified contact dermatitis, unspecified cause (principal); B35.4 Tinea corporis; I13.10 Hypertensive heart and chronic kidney disease without heart failure, with stage 1 through stage 4 chronic kidney disease, or unspecified chronic kidney disease; N18.9 Chronic kidney disease, unspecified; F41.9 Anxiety disorder, unspecified; Z79.899 Other long term (current) drug therapy

== ENCOUNTER 2018-02-17 14:05 | Emergency (ER) | payer MEDICAID, OTHER ==
[2018-02-17] MEDS ORDERED: Lidocaine 1% w/Epinephrine 1:100K 20 ML VIAL ONE (14:14)
[2018-02-17 15:34] LABS: #Eosinphils 0.7 thou/uL (0.0-0.7); #Lymphocytes 2.3 thou/uL (1.20-3.40); #Monocytes 0.7 thou/uL (0.11-0.59); #Neutrophils 3.4 thou/uL (1.40-6.50); %Basophils 0.3 % (0.0-1.0); %Eosinophils 9.8 % (0.0-10.0); %Lymphocytes 32.5 % (28.0-48.0); %Neutrophils 47.4 % (31.0-61.0); Hemoglobin 8.5 g/dL (14.0-18.0); Mean Corpuscular Hemoglobin 31.3 pg (25.0-35.0); Mean Corpuscular Volume 91.9 fl (77.0-87.0); Platelet Count 284 thou/uL (130-400); RBC Distribution Width 12.9 % (11.5-14.5); Red Blood Cell (RBC) Count 2.72 mill/uL (4.00-5.20); White Blood Cell (WBC) Count 7.2 thou/uL (4.8-10.8)
== END 2018-02-17 15:55 | disposition home or self-care (01) ==
LOC: ERS 14:05
DX: T82.838A Hemorrhage due to vascular prosthetic devices, implants and grafts, initial encounter (principal); I12.9 Hypertensive chronic kidney disease with stage 1 through stage 4 chronic kidney disease, or unspecified chronic kidney disease; N18.9 Chronic kidney disease, unspecified; Z79.899 Other long term (current) drug therapy
CPT/HCPCS: 85025; J2001

== ENCOUNTER 2018-02-17 22:19 | Emergency (ER) | payer MEDICAID, OTHER ==
[2018-02-18] MEDS ORDERED: Morphine 4 MG/ML VIAL ONE (00:48)
[2018-02-18 02:06] LABS: #Basophils 0.1 thou/uL (0.0-0.2); #Eosinphils 0.7 thou/uL (0.0-0.7); #Lymphocytes 2.3 thou/uL (1.20-3.40); #Monocytes 0.9 thou/uL (0.11-0.59); #Neutrophils 5.4 thou/uL (1.40-6.50); %Basophils 0.7 % (0.0-1.0); %Eosinophils 7.6 % (0.0-10.0); %Lymphocytes 24.7 % (28.0-48.0); Hemoglobin 8.8 g/dL (14.0-18.0); Mean Corpuscular HGB CONC 34.8 g/dL (32.0-36.0); Mean Corpuscular Hemoglobin 32.1 pg (25.0-35.0); Mean Corpuscular Volume 92.1 fl (77.0-87.0); Mean Platelet Volume 7.1 fL (7.4-10.4); Platelet Count 270 thou/uL (130-400); RBC Distribution Width 13.1 % (11.5-14.5); Red Blood Cell (RBC) Count 2.73 mill/uL (4.00-5.20); White Blood Cell (WBC) Count 9.4 thou/uL (4.8-10.8)
[2018-02-18 02:28] LABS: ALT (SGPT) 8 U/L (8-55); AST (SGOT) 10 U/L (5-34); Alkaline Phosphatase 91 U/L (Less than 750); Anion Gap 18 mmol/L (10-20); BUN (Urea Nitrogen) 42 mg/dL (8.9-20.6); Bilirubin, Total 0.3 mg/dL (0.2-1.2); CK (CPK) 82 U/L (30-200); Calc. Creatinine Clearance 0 mL/min (70-130); Calcium 9.4 mg/dL (7.8-10.44); Carbon Dioxide 28 mmol/L (22-29); Chloride 99 mmol/L (98-107); Estimated GFR-MDRD 6; Globulin 3.7 g/dL (2.4-3.5); Glucose 78 mg/dL (70-105); Potassium 4.8 mmol/L (3.5-5.1); Protein, Total 7.7 g/dL (6.0-8.3); Sodium 140 mmol/L (136-145)
--- NOTE | 2018-02-18 08:33 | ULT ---
PRELIMINARY REPORT/[facility]/EMERGENCY AFTER HOURS PROCEDURE: EXAM: US Duplex Left Upper Extremity Veins CLINICAL HISTORY: 22 years old, male; Pain and signs and symptoms; Edema, localized; Upper extremity, left; Arn, upper; Prior surgery; Surgery date: Post-operative (0-2 days); Surgery type: Left upper arm cephalic fistul a suture today; Patient HX: Left ua ceph fistula rupture today TECHNIQUE: Real-time ultrasound scan of the veins of the left upper extremity with color Doppler flow, spectral waveform analysis and compression. COMPARISON: No relevant prior studies available. FINDINGS: Limited due to pain/edema The basilic and brachial veins not well visualized due to edema Cephalic vein fistula presumably measuring, grossly patent. The visualized left internal jugular, subclavian, axillary and brachial veins are grossly patent IMPRESSION: Limited study. Grossly patent fistula No definite left-sided deep venous thrombosis as described Thank you for allowing us to participate in the care of your patient. Dictated and Authenticated by: Natanael Sanchez MD 02/18/2018 2:55 AM Central Time ([place] & [place]) FINAL REPORT: LEFT UPPER EXTREMITY VENOUS DOPPLER ULTRASOUND: Date: 02-18-18 Comparison: None. History: Left upper extremity edema, left sided fistula for dialysis access. FINDINGS: I agree with the preliminary [facility] report dictated by Dr. Natanael Braxton. Left internal jugular vein, emerson bclavian vein, and axillary vein are patent. Provided images demonstrate a patent dialysis fistula. T here is soft tissue swelling medial to the fistula within the mid upper arm with adjacent hypoechoic material suggesting subcutaneous hematoma superficial to the fistula. Follow up advised as clinically warranted. IMPRESSION: Soft tissue swelling overlies the dialysis access with probable adjacent hematoma measuring up to 5.7 cm. Fistula appears patent. Provided imaging demonstrates no evidence for venous clot. POS: [facility]
== END 2018-02-18 03:31 | disposition home or self-care (01) ==
LOC: ERS 22:19
DX: T82.898A Other specified complication of vascular prosthetic devices, implants and grafts, initial encounter (principal); I42.9 Cardiomyopathy, unspecified; I10 Essential (primary) hypertension; N19 Unspecified kidney failure; Z99.2 Dependence on renal dialysis; Z94.0 Kidney transplant status; Z79.899 Other long term (current) drug therapy
CPT/HCPCS: 36415; 80053; 82550; 83605; 85025; J2270

== ENCOUNTER 2018-02-18 14:56 | Emergency (ER) | payer OTHER | END 2018-02-18 20:56 | disposition short-term general hospital (02) | LOC: ERS 14:56 | DX: T82.838A Hemorrhage due to vascular prosthetic devices, implants and grafts, initial encounter (principal); I10 Essential (primary) hypertension; I42.9 Cardiomyopathy, unspecified; Z79.891 Long term (current) use of opiate analgesic; Z79.899 Other long term (current) drug therapy | CPT/HCPCS: 12001; 36415; 80053; 82550; 83605; 85025; 96372; 96374; 96375; 99283; J2001; J2270 ==

== ENCOUNTER 2018-03-28 22:30 | Emergency (ER) | payer OTHER ==
[2018-03-29 00:43] LABS: #Eosinphils 0.4 thou/uL (0.0-0.7); #Monocytes 0.9 thou/uL (0.11-0.59); #Neutrophils 4.1 thou/uL (1.40-6.50); %Basophils 0.4 % (0.0-1.0); %Eosinophils 5.4 % (0.0-10.0); %Lymphocytes 27.4 % (21.0-51.0); %Monocytes 11.5 % (0.0-10.0); %Neutrophils 55.4 % (42.0-75.0); Hemoglobin 8.3 g/dL (14.0-18.0); Mean Corpuscular HGB CONC 31.9 g/dL (32.0-36.0); Mean Corpuscular Hemoglobin 28.4 pg (27.0-31.0); Mean Corpuscular Volume 88.9 fl (80.0-94.0); Mean Platelet Volume 7.9 fL (7.4-10.4); Platelet Count 215 thou/uL (130-400); RBC Distribution Width 14.4 % (11.5-14.5); Red Blood Cell (RBC) Count 2.91 mill/uL (4.70-6.10); White Blood Cell (WBC) Count 7.4 thou/uL (4.8-10.8)
[2018-03-29 01:04] LABS: ALT (SGPT) Less than 7 U/L (8-55); AST (SGOT) 9 U/L (5-34); Albumin 3.9 g/dL (3.5-5.0); Alkaline Phosphatase 86 U/L (40-150); Anion Gap 18 mmol/L (10-20); BUN (Urea Nitrogen) 29 mg/dL (8.9-20.6); Bilirubin, Total 0.3 mg/dL (0.2-1.2); Calc. Creatinine Clearance 0 mL/min (70-130); Calcium 9.3 mg/dL (7.8-10.44); Carbon Dioxide 29 mmol/L (22-29); Chloride 97 mmol/L (98-107); Estimated GFR-MDRD 7; Globulin 3.5 g/dL (2.4-3.5); Glucose 85 mg/dL (70-105); Potassium 4.9 mmol/L (3.5-5.1); Protein, Total 7.4 g/dL (6.0-8.3); Sodium 139 mmol/L (136-145)
[2018-03-29 01:07] LABS: CKMB 0.5 ng/mL (0-6.6); Troponin I Less than 0.010 ng/mL (< 0.028)
--- NOTE | 2018-03-29 08:12 | RAD ---
PORTABLE CHEST: Date: 03/29/18 HISTORY: Dyspnea. FINDINGS: Dual lumen central catheter is in place with tip overlying the right atrium. The lung gordillo appear c lear. Heart and mediastinum unremarkable. IMPRESSION: No acute process. POS: [facility]
== END 2018-03-29 01:15 | disposition home or self-care (01) ==
LOC: ERS 22:30
DX: Z49.01 Encounter for fitting and adjustment of extracorporeal dialysis catheter (principal); I12.0 Hypertensive chronic kidney disease with stage 5 chronic kidney disease or end stage renal disease; N18.6 End stage renal disease; Z79.899 Other long term (current) drug therapy
CPT/HCPCS: 36415; 71045; 80053; 82553; 84484; 85025; 93005

== ENCOUNTER 2018-04-06 12:58 | Inpatient (IN) | payer OTHER ==
[2018-04-06 13:29] LABS: #Eosinphils 0.3 thou/uL (0.0-0.7); #Lymphocytes 1.5 thou/uL (1.20-3.40); #Monocytes 0.9 thou/uL (0.11-0.59); #Neutrophils 5.8 thou/uL (1.40-6.50); %Basophils 0.4 % (0.0-1.0); %Lymphocytes 17.3 % (21.0-51.0); %Monocytes 11.1 % (0.0-10.0); %Neutrophils 68.2 % (42.0-75.0); Hemoglobin 8.3 g/dL (14.0-18.0); Mean Corpuscular HGB CONC 32.8 g/dL (32.0-36.0); Mean Corpuscular Hemoglobin 28.8 pg (27.0-31.0); Mean Corpuscular Volume 87.6 fl (80.0-94.0); Mean Platelet Volume 8.6 fL (7.4-10.4); Platelet Count 172 thou/uL (130-400); RBC Distribution Width 14.3 % (11.5-14.5); Red Blood Cell (RBC) Count 2.87 mill/uL (4.70-6.10); White Blood Cell (WBC) Count 8.5 thou/uL (4.8-10.8)
[2018-04-06 13:50] LABS: ALT (SGPT) Less than 7 U/L (8-55); AST (SGOT) 13 U/L (5-34); Albumin 3.8 g/dL (3.5-5.0); Alkaline Phosphatase 73 U/L (40-150); Anion Gap 20 mmol/L (10-20); BUN (Urea Nitrogen) 60 mg/dL (8.9-20.6); Bilirubin, Total 0.5 mg/dL (0.2-1.2); Calc. Creatinine Clearance 0 mL/min (70-130); Calcium 9.3 mg/dL (7.8-10.44); Carbon Dioxide 23 mmol/L (22-29); Chloride 96 mmol/L (98-107); Estimated GFR-MDRD 4; Globulin 3.5 g/dL (2.4-3.5); Glucose 83 mg/dL (70-105); Lipase 23 U/L (8-78); Potassium 5.7 mmol/L (3.5-5.1); Protein, Total 7.3 g/dL (6.0-8.3); Sodium 133 mmol/L (136-145)
[2018-04-06] MEDS ORDERED: Promethazine HCl 25 MG/ML VIAL ONE (17:30)
[2018-04-06] MEDS ORDERED: Acetaminophen 500 MG TAB ONE (17:30)
[2018-04-06] MEDS ORDERED: hydrALAZINE 20 MG/ML VIAL ONE (17:30)
[2018-04-06] MEDS ORDERED: diphenhydrAMINE 50 MG/ML VIAL ONE (17:30)
--- NOTE | 2018-04-06 17:33 | CT ---
CT BRAIN: HISTORY: Headache. COMPARISON:08/25/2017 TECHNIQUE: Noncontrast enhanced CT images of the brain were obtained on 04/06/2018. FINDINGS: Noncontrast enhanced CT images of the brain demonstrate the brain to be unremarkable. No evidence of intracranial masses, hemorrhages, strokes, or contusions seen. The ventricles are of normal size. IMPRESSION: Normal CT brain. POS: [facility]
[2018-04-06] MEDS ORDERED: Acetaminophen 650 MG Suppository PR PRN (19:27)
[2018-04-06] MEDS ORDERED: Bisacodyl 5 MG TAB PO PRN (19:27)
[2018-04-06] MEDS ORDERED: traMADol HCl 50 MG TAB PO PRN (19:27)
[2018-04-06] MEDS: traMADol HCl 50 MG TAB PO PRN (20:24)
[2018-04-06] MEDS ORDERED: Epoetin (NON-ESRD) 20,000 UNITS/ML ML IVP SCH (20:58)
[2018-04-06] MEDS ORDERED: Epoetin (ESRD) 10,000 UNITS/ML VIAL IVP SCH (21:30)
--- NOTE | 2018-04-06 22:01 | HP ---
PRIMARY CARE PHYSICIAN: Dr. Zeng. CRIMINOLOGY PROFESSOR: Dr. Arrieta. HISTORY OF PRESENT ILLNESS: This is a 23-year-old -Filipino male with a known history of end- stage renal disease, status post failed kidney transplant, who is on chronic hemodialysis. He report s that starting yesterday afternoon or evening, he developed pounding headache, aching all over his b ryder and feeling nauseated. This is persistent today and so came into the emergency room. In the ER, the patient was found to be hypertensive and have hyperkalemia still less than 6 with some possible peaking of the T waves on his EKG. Dr. Arrieta was consulted from the emergency room. The patient is b [facility] set up for urgent dialysis. PAST MEDICAL HISTORY: 1. 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 2. Hypertension. 3. Anemia of chronic kidney disease. PAST SURGICAL HISTORY: 1. Renal transplant. 2. AV fistula placement. SOCIAL HISTORY: No tobacco, alcohol, or illicit drug use. FAMILY HISTORY: Many family members with diabetes and hypertension. ALLERGIES: 1. HYDROCODONE. 2. LORACARBEF. The patient is able to take other opiates without difficulty. HOME MEDICATIONS: 1. Amlodipine 10 mg daily. 2. Metoprolol tartrate 150 mg daily. 3. Vitamin B complex 3 tablets daily. 4. Sensipar 30 mg daily. 5. Renvela 800 mg 3 times a day. 6. Atarax 25 mg every 6 hours as needed for itching. REVIEW OF SYSTEMS: CONSTITUTIONAL: No fever or chills. EYES: He has had some blurred vision, no double vision. ENT: No congestion or drainage. He has had some mild sore throat. CARDIOVASCULAR: No chest pain, no palpitations or racing heart. PULMONARY: No coughing, wheezing, or shortness of breath. GASTROINTESTINAL: Nausea as per HPI. No vomiting, no abdominal pain, no diarrhea or constipation. GENITOURINARY: The patient does not produce any urine at all. MUSCULOSKELETAL: See HPI. No focal musculoskeletal complaints, just generalized aching. SKIN: No rashes or other lesions noted. NEUROLOGIC: No numbness, tingling or focal weakness. He does have a pounding frontal headache. Thi s is similar to the frequent headaches. He actually gets one after every dialysis and then get some other times as well. He typically just waits then resolved by themselves. He is to take Tylenol; ho wever, does not seem to help anymore, so he has stopped. PHYSICAL EXAMINATION: VITAL SIGNS: Blood pressure 173/116, pulse 84, respirations 18, O2 saturation 98% on room air, tempe rature 98.5. Pain level 8/10. GENERAL: This is a well-developed, obese -Filipino male in mild distress secondary to pain. HEENT: Pupils equal, round, and reactive to light. Extraocular movements intact. Oropharynx clear without lesions, erythema or exudate. NECK: Supple, no lymphadenopathy, no thyroid nodules enlargement, no JVD. HEART: Regular rate and rhythm, no murmurs, rubs or gallops. LUNGS: Clear to auscultation bilaterally, no wheezes, crackles or rhonchi. ABDOMEN: Soft, nontender to palpation, normoactive bowel sounds, no hepatosplenomegaly or masses. MUSCULOSKELETAL: Normal. EXTREMITIES: Without clubbing, cyanosis or edema. No tenderness to the muscles of his back. SKIN: No rashes or lesions noted. NEUROLOGIC: The patient has cranial nerves intact and equal bilaterally. No facial droop. Deep ten don reflexes 2+ in all extremities. Strength 5/5 in all extremities. His HINTS exam is negative. LABORATORY DATA: Brain natriuretic peptide 1046, lipase 23. Complete metabolic panel notable for so dium of 133, potassium 5.7, chloride 96, BUN 60, creatinine 17.76. The remainder was normal. CBC: White blood cell count was normal, hemoglobin 8.3, hematocrit 25.1, platelet count normal. EKG. The patient had normal sinus rhythm at 90 beats per minute without arrhythmia or ectopic beats, but did have some peaking of his T waves. CT of the head preliminary review by radiologist was negative for intracranial hemorrhage or other abnormality. ASSESSMENT: 1. Hyperkalemia and uncontrolled hypertension secondary to volume overload and lack of dialysis. Th e patient is to have emergent dialysis, removal of fluid and potassium. 2. Migrainous headache. The patient is having IV access placed right now and then he will have Cherelle dryl and promethazine down in the emergency room. Apparently, will have Reglan and the patient canno t have NSAID secondary to his end-stage renal disease and kidney transplant. Should his symptoms per sist, we can try a single dose of Compazine, we will also write for tramadol as needed. 3. Possible viral syndrome with his headache, sore throat, and body aches. He does not have any armando dence of strep throat on exam, likely viral. We will give supportive care and Tylenol as needed for aching and any fever. 4. End-stage renal disease. Continue regular dialysis. 5. Hypertension. The patient is getting hydralazine in the emergency room, and we will resume his h ome antihypertensives. 6. Gastrointestinal prophylaxis. Put patient on Pepcid twice a day. 7. Code status. I did discuss the patient, he is a FULL CODE. Should he be incapacitated, his moth er will be his medical decision maker, her name is Tammy Rod.
[2018-04-06] MEDS ORDERED: hydrALAZINE 20 MG/ML VIAL SLOW IVP PRN (22:07)
[2018-04-06 22:17] VITALS: BMI 35.9
[2018-04-06] MEDS ORDERED: Morphine 4 MG/ML VIAL SLOW IVP SCH ×2 (22:30→23:59)
[2018-04-06] MEDS ORDERED: cloNIDine 0.1 MG TAB PO PRN (23:52)
[2018-04-07] MEDS: Ondansetron HCl/PF 4 MG/2 ML Vial IVP PRN ×2 (00:59→16:07)
[2018-04-07] MEDS: Acetaminophen 325 MG TAB PO PRN ×4 (01:02→20:08)
--- NOTE | 2018-04-07 04:04 | CON ---
DATE OF CONSULTATION: 04/06/2018 NEPHROLOGY CONSULTATION CONSULTING PHYSICIAN: Dr. Morton. REASON FOR CONSULTATION: End-stage renal disease evaluation and care, hyperkalemia. REASON FOR ADMISSION: Headache. HISTORY OF PRESENT ILLNESS: A 23-year-old male with history of end-stage renal disease, hypertension , cardiomyopathy, history of renal transplant who came into the hospital with headache. He gets dial ysis on Friday, Friday, Friday, and due for dialysis today. His last dialysis was Friday. He was found to have potassium of 5.7. Nephrology consulted for his maintenance hemodialysis. Patient was seen during dialysis and still having headache. His blood pressure was also slightly elevated was 1 78/130 on arrival also complains of occasional nausea, vomiting, no chest pain, shortness of reported to me. No abdominal pain, no back pain, no leg swelling. No shortness of breath. PAST MEDICAL HISTORY: Positive for end-stage renal disease, hypertension, cardiomyopathy, history of renal transplant. Dialysis on Friday, Friday, and Friday. PAST SURGICAL HISTORY: History of renal transplant, dialysis access with fistula placement. HOME MEDICATIONS: Amlodipine, metoprolol, vitamin B complex, Sensipar, Renvela, Atarax. ALLERGIES: VICODIN. SOCIAL HISTORY: No smoking, alcohol, or illicit drug abuse reported. FAMILY HISTORY: No history of kidney disease. REVIEW OF SYSTEMS: The following complete review of systems was negative, unless otherwise mentioned in the HPI or below: Constitutional: Weight loss or gain, ability to conduct usual activities. Sk in: Rash, itching. Eyes: Double vision, pain. ENT/Mouth: Nose bleeding, neck stiffness, pain, te nderness. Cardiovascular: Palpitations, dyspnea on exertion, orthopnea. Respiratory: Shortness of breath, wheezing, cough, hemoptysis, fever, or night sweats. Gastrointestinal: Poor appetite, abdo kenji pain, heartburn, nausea, vomiting, constipation, or diarrhea. Genitourinary: Urgency, frequen cy, dysuria, nocturia. Musculoskeletal: Pain, swelling. Neurologic/Psychiatric: Anxiety, depressi on. Allergy/Immunologic: Skin rash, bleeding tendency. PHYSICAL EXAMINATION: GENERAL: This is an obese male in no apparent distress. VITAL SIGNS: Temperature 100.0, pulse 101, respiratory rate 18, blood pressure 160/95. HEENT: Atraumatic, normocephalic. Oral mucosa is moist. NECK: Supple, no masses. CARDIOVASCULAR: S1, S2 heard. Rate and rhythm regular. RESPIRATORY: Clear. GASTROINTESTINAL: Abdomen is obese, soft. MUSCULOSKELETAL: No tenderness. No edema. DERMATOLOGIC: No skin rash. NEUROLOGIC: Alert and awake. PSYCHIATRIC: Mood and affect normal. LABORATORY DATA: Hemoglobin is 8.3, potassium 5.7, BUN is 60, creatinine 17.76. ASSESSMENT AND PLAN: 1. End-stage renal disease. Plan is to have dialysis today, patient is due for dialysis today. 2. Anemia. We will have Epogen. 3. Hyperkalemia. Limit potassium. 4. Hyponatremia, mild. 5. Edema, controlled. 6. Hypertension. Titrate medication, remove fluid with dialysis. Plan is to continue on dialysis. We will continue dialysis as tolerated. We will remove fluid. We will add Epogen with dialysis and we will follow. Thank you for the consult.
[2018-04-07 05:17] LABS: #Eosinphils 0.1 thou/uL (0.0-0.7); #Lymphocytes 1.1 thou/uL (1.20-3.40); #Monocytes 1.2 thou/uL (0.11-0.59); #Neutrophils 8.7 thou/uL (1.40-6.50); %Basophils 0.2 % (0.0-1.0); %Eosinophils 0.6 % (0.0-10.0); %Lymphocytes 10.1 % (21.0-51.0); %Monocytes 10.6 % (0.0-10.0); %Neutrophils 78.5 % (42.0-75.0); Hemoglobin 7.7 g/dL (14.0-18.0); Mean Corpuscular Hemoglobin 29.2 pg (27.0-31.0); Mean Corpuscular Volume 85.8 fl (80.0-94.0); Mean Platelet Volume 9.1 fL (7.4-10.4); Platelet Count 150 thou/uL (130-400); RBC Distribution Width 14.3 % (11.5-14.5); Red Blood Cell (RBC) Count 2.62 mill/uL (4.70-6.10); White Blood Cell (WBC) Count 11.1 thou/uL (4.8-10.8)
[2018-04-07 05:41] LABS: Anion Gap 19 mmol/L (10-20); BUN (Urea Nitrogen) 51 mg/dL (8.9-20.6); Calc. Creatinine Clearance 13 mL/min (70-130); Calcium 8.8 mg/dL (7.8-10.44); Carbon Dioxide 22 mmol/L (22-29); Chloride 100 mmol/L (98-107); Estimated GFR-MDRD 5; Glucose 86 mg/dL (70-105); Sodium 134 mmol/L (136-145)
[2018-04-07 05:43] LABS: Potassium 6.9 mmol/L (3.5-5.1)
[2018-04-07] MEDS ORDERED: Insulin Regular 300 UNITS/3 ML VIAL IVP SCH (06:45)
[2018-04-07] MEDS ORDERED: Dextrose 50% Abboject 50 ML SYRINGE SLOW IVP SCH (06:45)
[2018-04-07 07:07] LABS: Anion Gap 14 mmol/L (10-20); BUN (Urea Nitrogen) 52 mg/dL (8.9-20.6); Calc. Creatinine Clearance 13 mL/min (70-130); Calcium 8.9 mg/dL (7.8-10.44); Carbon Dioxide 25 mmol/L (22-29); Chloride 101 mmol/L (98-107); Estimated GFR-MDRD 5; Glucose 87 mg/dL (70-105); Potassium 6.3 mmol/L (3.5-5.1); Sodium 134 mmol/L (136-145)
[2018-04-07] MEDS ORDERED: traZODone HCl 50 MG TAB PO PRN (08:52)
[2018-04-07] MEDS ORDERED: hydrOXYzine 25 MG TAB PO PRN (08:52)
--- NOTE | 2018-04-07 08:59 | PDOC.PN ---
- Subjective Encounter Start Date: 04/07/18 Encounter Start Time: 10:30 Subjective: Patient with persistent HALL, improved overnight but moderate again after -: standing up this AM. Still achy all over. No full fever, but temp running -: about 100 O/N. - Objective Resuscitation Status: Resuscitation Status FULL:Full Resuscitation MAR Reviewed: Yes Vital Signs & Weight: Vital Signs (12 hours) Temp Pulse Resp BP BP Pulse Ox 04/07/18 08:00 100.5 F H 108 H 20 04/07/18 07:40 98.9 F 93 12 139/96 H 94 L 04/07/18 02:37 100.5 F H 108 H 20 139/94 H 95 04/07/18 00:42 100.0 F H 99 20 178/110 H 95 04/07/18 00:30 186/106 H 04/07/18 00:10 187/93 H 04/06/18 22:30 188/125 H Weight Weight 273 lb 5.971 oz I&O: 04/06/18 04/07/18 04/08/18 06:59 06:59 06:59 Intake Total 480 50 Output Total 1168 Balance -688 50 Result Diagrams: 04/07/18 04:52 04/07/18 06:38 Phys Exam - Physical Examination Constitutional: NAD HEENT: moist MMs Respiratory: no wheezing, no rales, no rhonchi Cardiovascular: RRR, no significant murmur Gastrointestinal: soft, non-tender, positive bowel sounds Neurological: non-focal, moves all 4 limbs Psychiatric: normal affect, A&O x 3 Dx/Plan (1) ESRD (end stage renal disease) on dialysis Code(s): N18.6 - END STAGE RENAL DISEASE; Z99.2 - DEPENDENCE ON RENAL DIALYSIS Status: Chronic (2) Hyperkalemia Code(s): E87.5 - HYPERKALEMIA Status: Acute Comment: Still elevated after dialysis (3) Migraine Code(s): G43.909 - MIGRAINE, UNSP, NOT INTRACTABLE, WITHOUT STATUS MIGRAINOSUS Status: Acute Qualifiers: Intractability: intractable Comment: similar to previous headaches, low grade temp and body aches suggest a concomittent viral infection as the eitiology (4) Anemia of renal disease Code(s): D63.1 - ANEMIA IN CHRONIC KIDNEY DISEASE Status: Chronic (5) Hypertension Code(s): I10 - ESSENTIAL (PRIMARY) HYPERTENSION Status: Chronic Qualifiers: Hypertension type: secondary to other renal disorders Qualified Code(s): I15.1 - Hypertension secondary to other renal disorders; N28.89 - Other specified disorders of kidney and ureter; N28.89 - Other specified disorders of kidney and ureter Comment: BP improved with dialysis - Plan cont current plan of care, out of bed/ambulate Try benadryl and reglan for HALL * . - Discharge Day Encounter end time: 10:45
--- NOTE | 2018-04-07 10:10 | PRG ---
Patient Name: ERIN HORN Date of service: 04/07/2018 Subjective: Patient was seen and examined at bedside and overnight events noted. Patient denies any shortness of breath or chest pain or palpitation. No history of nausea or vomiting or diarrhea or fever or chills or cramps. Objective: General: This is a morbidly obese male in no apparent distress. Vital signs: Temperature 98.9, pulse 93, respiratory rate 18, blood pressure 113/96. HEENT: Atraumatic, normocephalic. Oral mucosa is moist. Neck: Supple. Cardiovascular: S1 S2 heard. Rate and rhythm regular. Respiratory: Clear to auscultation. Gastrointestinal: Abdomen is soft. Musculoskeletal: No tenderness. No edema. Dermatologic: No skin rash. Neurologic: Alert and awake and oriented X3. No focal neurologic deficits. Moving all the extremit ies. Psychiatric: Mood and affect normal. LABORATORY DATA: Potassium is 6.3, BUN 52, creatinine 15.6. ASSESSMENT AND PLAN: 1. End-stage renal disease. He lost his access last night, the catheter came out and plan is to hav e a new dialysis, new catheter. Probably the old catheter was not working as his hyperkalemia did no t get treated with a good dialysis today. 2. Anemia. 3. Hyperkalemia, limit potassium in diet and will have medical management. Consult surgery for a ne w catheter placement, needs dialysis today once the catheter is in. 4. Hyponatremia. 5. Edema. 6. Hypertension. Plan is to continue dialysis as tolerated.
[2018-04-07] MEDS: Metoprolol Tartrate 100 MG TAB PO SCH (10:49)
[2018-04-07] MEDS: Famotidine 20 MG TAB PO SCH (10:49)
[2018-04-07] MEDS: Amlodipine 10 MG TAB PO SCH (10:50)
[2018-04-07] MEDS: Stress 600 With Zinc 1 TAB PO SCH (10:50)
[2018-04-07] MEDS ORDERED: diphenhydrAMINE 50 MG/ML VIAL IVP SCH (11:00)
[2018-04-07] MEDS ORDERED: Prochlorperazine Edisylate 10 MG in Sodium Chloride 0.9% 50 ML IVPB SCH (11:00)
[2018-04-07] MEDS ORDERED: Metoclopramide HCl 10 MG/2 ML VIAL IVP SCH (11:15)
--- NOTE | 2018-04-07 13:13 | ULT ---
PREDIALYSIS ACCESS DUPLEX EXAMINATION: INDICATIONS: Predialysis access duplex examination for hemodialysis access. TECHNIQUE: Vera-scale color Doppler images were obtained of the venous and arterial structures of both lower ext remities. FINDINGS: The right brachial artery measured 5.3 mm. The right radial artery measured 1.7 mm. The right ulnar artery measured 2.5 mm. RIGHT CEPHALIC VEIN 1.3 mm 1.4 mm 1.0 mm 1.1 mm 1.3 mm 1.4 mm 1.7 mm There is partially occlusive thrombus seen within the right cephalic vein, at the level of the right antecubital fossa. RIGHT BASILIC VEIN 4.6 mm 4.7 mm 4.6 mm 2.9 mm 2.3 mm 2.7 mm 1.5 mm The left brachial artery measured 10 mm. There is occlusive thrombus seen within an AV fistula in th e left upper extremity, within the cephalic limb. No further measurements were obtained of the left upper extremity. IMPRESSION: 1. Predialysis access duplex examination of the right upper extremity. 2. Partially occlusive thrombus seen within the right cephalic vein, at the level of the antecubital fossa. 3. Occluded left upper arm arteriovenous fistula. POS: [facility]
[2018-04-07] MEDS: traMADol HCl 50 MG TAB PO PRN (14:34)
[2018-04-07] MEDS ORDERED: Heparin 10,000 UNITS/ 10 ML VIAL ONE (16:02)
[2018-04-07] MEDS ORDERED: Lidocaine 1% (PF) 30 ML VIAL ONE (17:51)
[2018-04-07] MEDS: Cinacalcet HCl 30 MG TAB PO SCH (20:08)
[2018-04-07] MEDS ORDERED: Temazepam 15 MG CAP PO PRN (22:35)
[2018-04-07] MEDS ORDERED: Ibuprofen 200 MG TAB PO SCH (22:45)
[2018-04-08] MEDS: traMADol HCl 50 MG TAB PO PRN ×2 (00:17→15:39)
--- NOTE | 2018-04-08 02:39 | OP ---
PREOPERATIVE DIAGNOSIS: Chronic renal insufficiency with need for urgent dialysis, no access. SURGEON: Shailesh Holman M.D. PROCEDURE PERFORMED: A Trialysis catheter placement. INDICATIONS: This is a 23-year-old male with a history of Goodpasture's kidney disease, who has been on dialysis for last 8 years and has lost access. He is in need of urgent dialysis. They ask me to place a temporary catheter. FINDINGS: Attempt was made right groin. I could not get it to thread and then the wire came out and wound up, not able to get into the vein, had to move to the left side. Good placement there. Good venous flow in all 3 ports. PROCEDURE IN DETAIL: After informed consent was obtained, the patient was placed in the supine posit ion. His groin area was prepped and draped in usual fashion. Local anesthesia infiltrated subcutane ously and deep with 1% lidocaine. An introducer needle was inserted to right groin. Good backflow o f venous blood. J-wire threaded easily. The skin was incised with an 11 blade. Then a series of di lators used to dilate the tract and then the catheter was attempted to be threaded. The catheter wou ld not thread through the tract. It was bunching up just under the skin and he is morbidly obese and the wire wound up coming out in attempts to try and thread this catheter. I tried to get back into the vein, but could not, had to hold pressure. Once the bleeding had stopped, wound up moving to the left side. Again, the groin was prepped and draped. Local anesthesia infiltrated with 1% lidocaine . Introducer needle inserted. Good backflow of venous blood. J-wire threaded easily. The skin was incised with an 11 blade. Series of dilators used to dilate over the wire then the catheter was thr eaded over the wire. At this time, it went in well. Good flow in all 3 ports. They were each flush ed with saline. The catheter was sutured in place with 3-0 nylon sutures. Sterile bandage applied. The patient tolerated the procedure well and can now undergo dialysis.
[2018-04-08 05:53] LABS: #Eosinphils 0.1 thou/uL (0.0-0.7); #Lymphocytes 1.3 thou/uL (1.20-3.40); #Monocytes 0.9 thou/uL (0.11-0.59); %Basophils 0.4 % (0.0-1.0); %Eosinophils 0.8 % (0.0-10.0); %Lymphocytes 13.6 % (21.0-51.0); %Monocytes 9.4 % (0.0-10.0); %Neutrophils 75.8 % (42.0-75.0); Hemoglobin 8.2 g/dL (14.0-18.0); Mean Corpuscular HGB CONC 33.4 g/dL (32.0-36.0); Mean Corpuscular Hemoglobin 28.7 pg (27.0-31.0); Mean Corpuscular Volume 86.1 fl (80.0-94.0); Mean Platelet Volume 8.9 fL (7.4-10.4); Platelet Count 170 thou/uL (130-400); RBC Distribution Width 14.2 % (11.5-14.5); Red Blood Cell (RBC) Count 2.85 mill/uL (4.70-6.10); White Blood Cell (WBC) Count 9.2 thou/uL (4.8-10.8)
[2018-04-08 06:04] LABS: Anion Gap 15 mmol/L (10-20); BUN (Urea Nitrogen) 21 mg/dL (8.9-20.6); Calc. Creatinine Clearance 21 mL/min (70-130); Calcium 8.8 mg/dL (7.8-10.44); Carbon Dioxide 28 mmol/L (22-29); Chloride 96 mmol/L (98-107); Estimated GFR-MDRD 9; Glucose 119 mg/dL (70-105); Potassium 4.5 mmol/L (3.5-5.1)
[2018-04-08 06:08] LABS: Sodium 134 mmol/L (136-145)
--- NOTE | 2018-04-08 07:47 | PDOC.PN ---
- Subjective Encounter Start Date: 04/08/18 Encounter Start Time: 07:45 Subjective: alert, no HALL, chest pain, or sob - Objective Resuscitation Status: Resuscitation Status FULL:Full Resuscitation MAR Reviewed: Yes Vital Signs & Weight: Vital Signs (12 hours) Temp Pulse Resp BP Pulse Ox 04/08/18 04:20 98.9 F 108 H 22 H 162/109 H 94 L 04/08/18 00:08 98.9 F 110 H 20 173/112 H 93 L Weight Weight 257 lb 3.2 oz I&O: 04/07/18 04/08/18 04/09/18 06:59 06:59 06:59 Intake Total 480 410 Output Total 1168 0 Balance -688 410 Result Diagrams: 04/08/18 05:04 04/08/18 05:04 Phys Exam - Physical Examination Constitutional: NAD Neck: no JVD Respiratory: clear to auscultation bilateral Cardiovascular: RRR, no significant murmur Gastrointestinal: soft, positive bowel sounds Musculoskeletal: no edema Dx/Plan (1) Hyperkalemia Code(s): E87.5 - HYPERKALEMIA Status: Resolved Comment: Still elevated after dialysis (2) Hypertension Code(s): I10 - ESSENTIAL (PRIMARY) HYPERTENSION Status: Chronic Qualifiers: Hypertension type: secondary to other renal disorders Qualified Code(s): I15.1 - Hypertension secondary to other renal disorders; N28.89 - Other specified disorders of kidney and ureter; N28.89 - Other specified disorders of kidney and ureter Comment: BP improved with dialysis (3) Anemia of renal disease Code(s): D63.1 - ANEMIA IN CHRONIC KIDNEY DISEASE Status: Chronic (4) ESRD (end stage renal disease) on dialysis Code(s): N18.6 - END STAGE RENAL DISEASE; Z99.2 - DEPENDENCE ON RENAL DIALYSIS Status: Chronic (5) GERD (gastroesophageal reflux disease) Code(s): K21.9 - GASTRO-ESOPHAGEAL REFLUX DISEASE WITHOUT ESOPHAGITIS Status: Chronic (6) H/O kidney transplant Status: Chronic - Plan ESRD- HD today -: HTN, uncontrooled- Add po hydralazine -: anemia-procrit * .
[2018-04-08] MEDS ORDERED: Epoetin (NON-ESRD) 20,000 UNITS/ML ML IVP SCH (09:00)
[2018-04-08] MEDS: Stress 600 With Zinc 1 TAB PO SCH (09:56)
[2018-04-08] MEDS: Metoprolol Tartrate 100 MG TAB PO SCH (09:57)
[2018-04-08] MEDS: Famotidine 20 MG TAB PO SCH (09:57)
[2018-04-08] MEDS: hydrALAZINE 25 MG TAB PO SCH ×3 (09:57→20:21)
[2018-04-08] MEDS: Ondansetron ODT 4 MG TAB PO PRN (10:54)
--- NOTE | 2018-04-08 11:06 | HP ---
HISTORY OF PRESENT ILLNESS: A 23-year-old black male, end-stage renal disease since a child. He has been on dialysis using left seminal fistula as a child. He had a renal transplant that failed. I s aw him 12/2016 in the [facility], explored his fistula at the wrist and it could not be salvaged. Intraoperative angiograms and evaluations led to placement of a left arm fistula. Angiograms revealed tortuosity of the cephalic vein, mid upper arm. Patient apparently had some prob lems with dialysis access even though the angiogram at the time I placed this fistula demonstrated ex cellent outflow. Unfortunately, this fistula was ligated in [place]. The patient has an appointment to see a dialysis access surgeon for right arm access. The patient has a mid right arm IV placed thi s hospitalization. He has a right femoral vein Trialysis catheter placed. He underwent ultrasound v ein mapping, 04/07/2018, right cephalic vein, proximal distal 1.3 mm, 1.4 mm, 1 mm, 1.1 mm, 1.3 mm, 1 .4 mm. There are partially occlusive thrombi seen in the right cephalic vein at the level of the rig ht antecubital fossa. Right basilic vein was 4.6, 4.7, 4.6, 2.9, 2.3 mm and proximal distal 2.7 mm a nd 1.5 mm. The left arm was not evaluated. I have been asked to establish a right hemodialysis cuff ed tunnel catheter. In 2016, I placed a right IJ cuffed tunneled dialysis catheter. The patient has a left femoral vein dialysis catheter. There is persistent bleeding from a failed placement, right femoral vein dialysis catheter. Plan at this occasion is for me to place hemodialysis catheter cuffed tunneled. I will place a ligat ing suture to stop the bleeding from his right groin at the failed dialysis access. The patient tera res to return to [place] for definitive dialysis access, so we will not this hospitalization place a f istula in his right arm, although iatrogenic IVs and blood draws have resulted in the right forearm c ephalic vein thrombus. I have informed the patient to inform caregivers to not allow IV access above his wrists in the future. He has not been informed of this to date he states despite being a renal patient most of his life. ALLERGIES: LORACARBEF and HYDROCODONE. TOBACCO: None. ALCOHOL: None. MEDICATIONS: Vitamin B complex, Sensipar, trazodone, hydroxyzine, tramadol, metoprolol, amlodipine. PAST SURGICAL HISTORY: As noted above, dialysis access, left Melissa fistula failed. I revised and p rovided new access in 2017 at [facility] and apparently this has been ligated. Rich irizarry has iatrogenic thrombosis, right forearm cephalic vein from the hospital IVs and blood draws. PHYSICAL EXAMINATION: VITAL SIGNS: 6 feet 2, 257 pounds, 33 BMI, 98.7, 94, 140/92. LUNGS: Clear to auscultation. CARDIAC: Regular rate and rhythm without murmur, rub, or gallop. ABDOMEN: Soft, nontender. EXTREMITIES: Unremarkable. ASSESSMENT AND PLAN: Plan hemodialysis catheter and he will return to [place] for definitive dialysis access in the future. He does have a basilic vein on the right that might be able to be staged and perform a definitive primary fistula without resorting to a graft, but he does not want to embark on that today at this facility.
[2018-04-08] MEDS ORDERED: Levofloxacin 500 mg/D5W 100 ml Premix Bag ONE (11:25)
[2018-04-08] MEDS ORDERED: Midazolam HCl 2 mg/2 ml Vial ONE ×2 (12:45→12:48)
[2018-04-08] MEDS ORDERED: Propofol 500 MG/50 ML VIAL ONE (12:48)
[2018-04-08] MEDS ORDERED: Fentanyl 100 MCG/2 ML VIAL ONE (12:48)
[2018-04-08] MEDS ORDERED: Bupivacaine HCl 0.5%/Epinephrine 1:200,000/PF 30 ml Vial ONE (12:52)
[2018-04-08] MEDS ORDERED: Heparin 10,000 UNITS/1 ML VIAL ONE (12:52)
[2018-04-08] MEDS ORDERED: Promethazine HCl 25 MG/ML VIAL SLOW IVP PRN (14:06)
[2018-04-08] MEDS ORDERED: Sodium Chloride 0.9% 20 ML ONE (14:24)
[2018-04-08] MEDS ORDERED: Lidocaine 1% PF 5 ML VIAL ONE (15:23)
[2018-04-08] MEDS ORDERED: PROPOFOL 200 MG/20 ML VIAL ONE (15:23)
[2018-04-08] MEDS: Amlodipine 10 MG TAB PO SCH (15:29)
[2018-04-08] MEDS ORDERED: Amlodipine 10 MG TAB PO SCH (15:30)
[2018-04-08] MEDS: Epoetin (ESRD) 10,000 UNITS/ML VIAL IVP SCH (15:40)
--- NOTE | 2018-04-08 15:53 | RAD ---
RADIOGRAPH CHEST 1 VIEW: Date: 04/08/18. Time: 2:20 p.m. HISTORY: A 23-year-old male status post central line placement. COMPARISON: 03/29/18. FINDINGS: The previously demonstrated right internal jugular dialysis catheter has been removed. There is a ne w left internal jugular double lumen dialysis catheter, with distal tips overlying the right atrium. No pneumothorax is identified. The lungs are hypoinflated. No consolidation or gael pulmonary jose luis eolar edema. IMPRESSION: 1. Interval placement of left internal jugular double lumen dialysis catheter with distal tips in th e right atrium. 2. No pneumothorax. 3. Interval removal of the contralateral right-sided dialysis catheter. JN [] POS: TPC
[2018-04-08] MEDS: HYDROcodone/Acetaminophen 7.5/325 mg Tablet PO PRN (20:20)
[2018-04-08] MEDS: Cinacalcet HCl 30 MG TAB PO SCH (20:21)
--- NOTE | 2018-04-08 20:58 | OP ---
DATE OF PROCEDURE: 04/08/2018 PREOPERATIVE DIAGNOSES: Hyperkalemia, end-stage renal disease, history of noncompliance, thrombosed left arm fistula ligated in [place]. POSTOPERATIVE DIAGNOSES: Hyperkalemia, end-stage renal disease, history of noncompliance, thrombose d left arm fistula ligated in [place]. PROCEDURES: Left IJ cuffed tunnel dialysis catheter. Successful cannulation of right internal jugul ar vein, but J-wire would not thread into the superior vena cava. Fluoroscopy was used. Placement o f a suture in right groin at the old catheter exit site due to continued bleeding. SURGEON: Kaiden Arciniega MD ANESTHESIA: Intravenous sedation, local. PROCEDURE IN DETAIL: The patient was taken to the operating room under intravenous sedation in the s upine position. Neck and chest were prepared with ChloraPrep, draped in routine fashion. Local anes thetic was infiltrated into the skin and subcutaneous tissue about the operative site. Ultrasound wa s used for cannulation of right internal jugular vein, but J-wire would not thread into the superior vena cava and the site was abandoned. Left side of his neck was anesthetized with local anesthetic a nd using ultrasound guidance, left internal jugular vein was cannulated with a trocar catheter. J-wi re threaded into the superior vena cava and skin incised and enlarged sharply. Stab incision was mad e over the left chest. Using the tunneling device, precurved angiodynamics cuffed tunnel hemodialysi s catheter tunneled between the two incisions. Fabric cuff was placed beneath the skin exit site. C atheter was secured with 2 sutures of 3-0 nylon. Biopatch, sterile dressing, Dermabond applied. Sma ller and medium-sized dilators were placed over the J-wire through the internal jugular vein and oralia kyra. Dilator and pull-away sheath under fluoroscopic visualization was placed in the superior vena c mahesh and dilator and J-wire removed. Catheter placed through pull-away sheath and pull-away sheath re moved. Fluoroscopic catheter noted to be in good position. Each port was aspirated of blood and flu shed with saline solution and the heparinized saline solution 1000 units of heparin per mL indicated volume of the port. Sterile dressing was applied after platysma approximated with 4-0 Monocryl, skin with subdermal 4-0 Monocryl. In the right groin, the old puncture site from unsuccessful right groin access was closed with 3-0 ny ludwin suture after an alcohol prep. The patient tolerated the procedure well.
--- NOTE | 2018-04-08 22:13 | PRG ---
DATE OF SERVICE: 04/08/2018 SUBJECTIVE: Patient was seen and examined at bedside and overnight events noted. Patient denies any shortness of breath or chest pain or palpitation. No history of nausea or vomiting or diarrhea or f ever or chills or cramps. OBJECTIVE: GENERAL: This is an obese male, in no apparent distress. VITAL SIGNS: Temperature , respiratory rate 16, blood pressure 140/92. HEENT: Atraumatic, normocephalic, oral mucosa is moist. NECK: Supple. CARDIOVASCULAR: S1, S2 heard, rate and rhythm regular. RESPIRATORY: Clear to auscultation. GASTROINTESTINAL: Abdomen is soft. MUSCULOSKELETAL: No tenderness, no edema. DERMATOLOGIC: No skin rash. NEUROLOGIC: Alert and awake and oriented x3. No focal neurologic deficits. Moving all the extremit ies. PSYCHIATRIC: Mood and affect normal. LABORATORY DATA: Potassium is 4.5, BUN is 21, creatinine is 9.0. ASSESSMENT AND PLAN: 1. End-stage renal disease. We will continue on hemodialysis as tolerated. 2. Anemia. 3. Hyperkalemia. 4. Edema, controlled. 5. Hypertension. Potassium is better. We will continue on dialysis as tolerated.
[2018-04-09] MEDS: HYDROcodone/Acetaminophen 7.5/325 mg Tablet PO PRN ×3 (00:26→19:57)
--- NOTE | 2018-04-09 07:57 | PDOC.PN ---
- Subjective Encounter Start Date: 04/09/18 Encounter Start Time: 07:55 Subjective: no sob, chest pain - Objective Resuscitation Status: Resuscitation Status FULL:Full Resuscitation MAR Reviewed: Yes Vital Signs & Weight: Vital Signs (12 hours) Temp Pulse Resp BP BP BP Pulse Ox 04/09/18 03:45 99.1 F 102 H 18 126/82 92 L 04/08/18 23:30 99.7 F H 130 H 20 155/102 H 93 L 04/08/18 20:21 100.3 F H 113 H 15 141/104 H Weight Weight 257 lb 11.2 oz I&O: 04/08/18 04/09/18 04/10/18 06:59 06:59 06:59 Intake Total 410 460 Output Total 0 Balance 410 460 Result Diagrams: 04/08/18 05:04 04/08/18 05:04 Phys Exam - Physical Examination Neck: no JVD Respiratory: clear to auscultation bilateral Cardiovascular: RRR, no significant murmur Gastrointestinal: soft, non-tender, positive bowel sounds Musculoskeletal: edema present Dx/Plan (1) Hyperkalemia Code(s): E87.5 - HYPERKALEMIA Status: Resolved Comment: Still elevated after dialysis (2) Hypertension Code(s): I10 - ESSENTIAL (PRIMARY) HYPERTENSION Status: Chronic Qualifiers: Hypertension type: secondary to other renal disorders Qualified Code(s): I15.1 - Hypertension secondary to other renal disorders; N28.89 - Other specified disorders of kidney and ureter; N28.89 - Other specified disorders of kidney and ureter Comment: BP improved with dialysis (3) Anemia of renal disease Code(s): D63.1 - ANEMIA IN CHRONIC KIDNEY DISEASE Status: Chronic (4) ESRD (end stage renal disease) on dialysis Code(s): N18.6 - END STAGE RENAL DISEASE; Z99.2 - DEPENDENCE ON RENAL DIALYSIS Status: Chronic (5) GERD (gastroesophageal reflux disease) Code(s): K21.9 - GASTRO-ESOPHAGEAL REFLUX DISEASE WITHOUT ESOPHAGITIS Status: Chronic (6) H/O kidney transplant Status: Chronic - Plan cont HD, discuss with Dr Sofia -: HTN labile, spresoline added , monitor ( on Amlodipine, metoprolol) * .
[2018-04-09] MEDS: hydrALAZINE 25 MG TAB PO SCH ×3 (08:17→19:56)
[2018-04-09] MEDS: Stress 600 With Zinc 1 TAB PO SCH (08:17)
[2018-04-09] MEDS: Metoprolol Tartrate 100 MG TAB PO SCH (08:17)
[2018-04-09] MEDS: Famotidine 20 MG TAB PO SCH (08:17)
[2018-04-09] MEDS: Amlodipine 10 MG TAB PO SCH (08:18)
[2018-04-09] MEDS: Ondansetron ODT 4 MG TAB PO PRN (09:08)
--- NOTE | 2018-04-09 14:36 | PRG ---
DATE OF SERVICE: 04/09/2018 SUBJECTIVE: Patient was seen and examined at bedside and overnight events noted. Patient denies any shortness of breath or chest pain or palpitation. No history of nausea or vomiting or diarrhea or fever or chills or cramps. OBJECTIVE: GENERAL: This is a morbidly obese -[place] Citizen male, in no apparent distress. VITAL SIGNS: Temperature 98.9, pulse 100, respiratory rate 18, blood pressure 157/96. HEENT: Atraumatic, normocephalic, oral mucosa is moist. Neck: Supple. CARDIOVASCULAR: S1, S2 heard, rate and rhythm regular. RESPIRATORY: Clear to auscultation. GASTROINTESTINAL: Abdomen is soft. MUSCULOSKELETAL: No tenderness, no edema. DERMATOLOGIC: No skin rash. NEUROLOGIC: Alert and awake and oriented x3, no focal neurologic deficits. Moving all the extremiti es. PSYCHIATRIC: Mood and affect normal LABORATORY DATA: Not done today. ASSESSMENT AND PLAN: 1. End-stage renal disease. We will continue on dialysis Friday, Friday, and Friday. 2. Edema, controlled. 3. Hypertension. 4. Hyperkalemia. Limit potassium. 5. Obesity. 6. Continue dialysis as tolerated Friday, Friday, and Friday.
[2018-04-09] MEDS: Cinacalcet HCl 30 MG TAB PO SCH (19:56)
[2018-04-10] MEDS: HYDROcodone/Acetaminophen 7.5/325 mg Tablet PO PRN ×2 (00:10→08:58)
[2018-04-10] MEDS ORDERED: Heparin 10,000 UNITS/ 10 ML VIAL ONE (07:46)
[2018-04-10] MEDS: Amlodipine 10 MG TAB PO SCH (08:38)
[2018-04-10] MEDS: Famotidine 20 MG TAB PO SCH (08:39)
[2018-04-10] MEDS: hydrALAZINE 25 MG TAB PO SCH ×2 (08:39→14:21)
[2018-04-10] MEDS: Stress 600 With Zinc 1 TAB PO SCH (08:39)
[2018-04-10] MEDS: Metoprolol Tartrate 100 MG TAB PO SCH (08:39)
[2018-04-10 09:15] LABS: Anion Gap 14 mmol/L (10-20); BUN (Urea Nitrogen) 33 mg/dL (8.9-20.6); Calc. Creatinine Clearance 14 mL/min (70-130); Calcium 8.1 mg/dL (7.8-10.44); Carbon Dioxide 29 mmol/L (22-29); Chloride 96 mmol/L (98-107); Estimated GFR-MDRD 6; Glucose 84 mg/dL (70-105); Potassium 4.2 mmol/L (3.5-5.1); Sodium 135 mmol/L (136-145)
[2018-04-10] MEDS: Epoetin (ESRD) 10,000 UNITS/ML VIAL IVP SCH (11:43)
[2018-04-10 12:38] VITALS: BP 159/92; TEMP 99.1
--- NOTE | 2018-04-10 14:07 | PDOC.EVN ---
Event Note - Event Note Event Note: change staatus to DNR. confirmed with sons
[2018-04-10] MEDS: Acetaminophen 325 MG TAB PO PRN (14:21)
--- NOTE | 2018-04-10 14:29 | PDOC.EVN ---
Event Note - Event Note Event Note: previous DNR note in error
--- NOTE | 2018-04-10 14:32 | PRG ---
DATE OF SERVICE: 04/10/2018 SUBJECTIVE: Patient was seen and examined at bedside and overnight events noted. Patient denies any shortness of breath or chest pain or palpitation. No history of nausea or vomiting or diarrhea or f ever or chills or cramps. OBJECTIVE: GENERAL: This is an obese male, in no apparent distress. VITAL SIGNS: Temperature 98.3, pulse 92, respirations 18, blood pressure 141/80. HEENT: Atraumatic, normocephalic, Oral mucosa is moist. NECK: Supple. CARDIOVASCULAR: S1, S2 heard. Rate and rhythm regular. RESPIRATORY: Clear to auscultation. GASTROINTESTINAL: Abdomen is soft. MUSCULOSKELETAL: No tenderness, no edema. DERMATOLOGIC: No skin rash. NEUROLOGIC: Alert and awake and oriented x3. No focal neurologic deficits. Moving all the extremit ies. PSYCHIATRIC: Mood and affect normal. LABORATORY DATA: Potassium is 4.2, BUN 33, creatinine 13.7. ASSESSMENT AND PLAN: 1. End-stage renal disease. Plan is to continue on dialysis as tolerated. 2. Hyperkalemia, much better, most likely from dysfunctional catheter. 3. Edema. 4. Hypertension, stable. Plan is to continue on dialysis as tolerated.
--- NOTE | 2018-04-10 15:20 | DIS ---
DATE OF ADMISSION: 04/06/2018 DATE OF DISCHARGE: 04/10/2018 PRIMARY CARE PROVIDER: Enoch Zeng M.D. DISCHARGE DISPOSITION: Home. FINAL DIAGNOSES: End-stage renal disease on hemodialysis, history of kidney transplant, anemia of ch ronic disease, hyperkalemia, hypertension. DISCHARGE MEDICATIONS: Apresoline 25 mg p.o. t.i.d., amlodipine 10 mg a day, Lopressor 150 mg a day, tramadol 100 mg p.o. b.i.d. p.r.n., trazodone 25 mg p.o. at bedtime, Sensipar 30 mg at bedtime, elda min B complex daily. ALLERGIES: LORACARBEF. PENDING AT TIME OF DISCHARGE: Nothing. CODE STATUS: FULL. DIET: Renal. High protein. [facility]RSE: [facility]. The patient presented with headache, aching over his body, found to be hypertensive wit h hypokalemia. Dr. Arrieta was consulted. Dr. Alison Sofia, Dr. Arrieta's partner, saw him. He was st arted on emergent hemodialysis as mentioned before. His blood pressure remained uncontrolled on his home medicines with blood pressures in the diastolic range of 104-106. Apresoline 25 mg p.o. 3 times a day was added to his blood pressure regimen. His metoprolol and amlodipine continued. His blood pressures came down into the 141/80, 136/87, 122/76 range. His pertinent laboratory, admitting white count 8.5, final white count 9.2. Admitting hemoglobin 8.3, final 8.2. His admitting potassium was 5.7. It went up rapidly to 6.9. His initial creatinine was 17.76, came down to 9.3. His potassium has been 4.5 and 4.2 the last [address] revealed no acute intracranial problem. On 03/24, Dr. Shailesh Holman placed a Trialysis catheter, left femoral. On 04/08/2018, a left IJ cuffed tu nneled dialysis catheter was placed. Currently, the patient is stable. Cardiorespiratory exam is no rmal. He is being discharged to continue his usual hemodialysis Friday, Friday, and Friday. He h as been asked to see Dr. Arrieta in follow up at dialysis. Dr. Enoch Zeng in followup in 1 week. Prescription for his new medicine has been written.
--- NOTE | 2018-04-11 17:55 | EKG ---
Test Reason : Blood Pressure : / mmHG Vent. Rate : 090 BPM Atrial Rate : 090 BPM P-R Int : 130 ms QRS Dur : 086 ms QT Int : 372 ms P-R-T Axes : 012 008 028 degrees QTc Int : 455 ms Normal sinus rhythm Moderate voltage criteria for LVH, may be normal variant Septal infarct , age undetermined Abnormal ECG Peaked T waves Confirmed by CHRIS FERREIRA, RACHEL Wakefield ([id number]), purchasing expeditor ZENA JOSEPH ([id number]) on 04/11/2018 5:54:43 PM Referred By: Confirmed By:RACHEL PEREZ MD
== END 2018-04-10 14:51 | disposition home or self-care (01) | DRG 682 ==
LOC: ERS 12:58 → 2SW 16:57 → INTOOBSV 16:57 → OBSVTOIN 16:57
PROVIDERS: ADMIT Emergency Medicine; ATTEND Emergency Medicine
PROC: 06HY33Z Insertion of Infusion Device into Lower Vein, Percutaneous Approach (ICD-10-PCS; principal; 2018-04-08)
PROC: 02HV33Z Insertion of Infusion Device into Superior Vena Cava, Percutaneous Approach (ICD-10-PCS; 2018-04-08)
PROC: B548ZZA Ultrasonography of Superior Vena Cava, Guidance (ICD-10-PCS; 2018-04-08)
DX: I12.0 Hypertensive chronic kidney disease with stage 5 chronic kidney disease or end stage renal disease (principal); N18.6 End stage renal disease; M31.0 Hypersensitivity angiitis; T86.12 Kidney transplant failure; Z99.2 Dependence on renal dialysis; E87.5 Hyperkalemia; D63.1 Anemia in chronic kidney disease; E66.9 Obesity, unspecified; Z68.33 Body mass index [BMI] 33.0-33.9, adult; K21.9 Gastro-esophageal reflux disease without esophagitis; Z91.19 Patient's noncompliance with other medical treatment and regimen; E87.6 Hypokalemia; G43.909 Migraine, unspecified, not intractable, without status migrainosus
CPT/HCPCS: 36415; 70450; 71045; 80048; 80053; 83690; 83880; 84100; 85025; 90935; 93005; 93970; 96374; 96375; A4216; C1752; C1769; G0257; G0365; J0360; J0670; J0885; J1200; J1644; J1815; J1956; J2001; J2250; J2270; J2405; J2550; J2704; J2765; J3010; Q0162; Q4081

== ENCOUNTER 2018-04-15 00:39 | Emergency (ER) | payer OTHER ==
[2018-04-15 01:24] LABS: #Eosinphils 0.1 thou/uL (0.0-0.7); #Lymphocytes 1.6 thou/uL (1.20-3.40); #Monocytes 0.7 thou/uL (0.11-0.59); #Neutrophils 8.7 thou/uL (1.40-6.50); %Basophils 0.2 % (0.0-1.0); %Eosinophils 0.5 % (0.0-10.0); %Lymphocytes 14.8 % (21.0-51.0); %Monocytes 5.9 % (0.0-10.0); %Neutrophils 78.6 % (42.0-75.0); Hemoglobin 7.3 g/dL (14.0-18.0); Mean Corpuscular HGB CONC 33.5 g/dL (32.0-36.0); Mean Corpuscular Hemoglobin 29.4 pg (27.0-31.0); Mean Corpuscular Volume 87.7 fl (80.0-94.0); Mean Platelet Volume 7.2 fL (7.4-10.4); Platelet Count 417 thou/uL (130-400); RBC Distribution Width 15.5 % (11.5-14.5); Red Blood Cell (RBC) Count 2.48 mill/uL (4.70-6.10); White Blood Cell (WBC) Count 11.1 thou/uL (4.8-10.8)
[2018-04-15] MEDS ORDERED: Morphine 10 MG/ML VIAL ONE ×2 (01:35→02:42)
[2018-04-15 01:42] LABS: ALT (SGPT) Less than 7 U/L (8-55); AST (SGOT) 10 U/L (5-34); Albumin 4.2 g/dL (3.5-5.0); Alkaline Phosphatase 78 U/L (40-150); Anion Gap 16 mmol/L (10-20); BUN (Urea Nitrogen) 40 mg/dL (8.9-20.6); Bilirubin, Total 0.3 mg/dL (0.2-1.2); Calc. Creatinine Clearance 0 mL/min (70-130); Calcium 8.5 mg/dL (7.8-10.44); Carbon Dioxide 28 mmol/L (22-29); Chloride 97 mmol/L (98-107); Estimated GFR-MDRD 6; Globulin 3.6 g/dL (2.4-3.5); Glucose 112 mg/dL (70-105); Potassium 6.1 mmol/L (3.5-5.1); Protein, Total 7.8 g/dL (6.0-8.3); Sodium 135 mmol/L (136-145)
[2018-04-15] MEDS ORDERED: Insulin Regular 300 UNITS/3 ML VIAL ONE (01:59)
[2018-04-15] MEDS ORDERED: Dextrose 50% Abboject 50 ML SYRINGE ONE (01:59)
[2018-04-15] MEDS ORDERED: Calcium Gluc 4.6 MEQ/10 ML (100 MG/ML) ONE (01:59)
--- NOTE | 2018-04-15 14:53 | EKG ---
Test Reason : POSS HIGH K Blood Pressure : / mmHG Vent. Rate : 084 BPM Atrial Rate : 084 BPM P-R Int : 138 ms QRS Dur : 098 ms QT Int : 382 ms P-R-T Axes : 020 020 023 degrees QTc Int : 451 ms Normal sinus rhythm Voltage criteria for left ventricular hypertrophy Possible Lateral infarct , age undetermined Abnormal ECG Confirmed by LORIE SNIDER M.D. ([id number]), editorial specialist DERREK GARCIA ([id number] on 04/15/2018 2:52:37 PM Referred By: Confirmed By:LORIE SNIDER M.D.
== END 2018-04-15 03:46 | disposition short-term general hospital (02) ==
LOC: ERS 00:39
DX: E87.5 Hyperkalemia (principal); I12.0 Hypertensive chronic kidney disease with stage 5 chronic kidney disease or end stage renal disease; N18.6 End stage renal disease; Z99.2 Dependence on renal dialysis; Z79.899 Other long term (current) drug therapy
CPT/HCPCS: 80053; 83735; 85025; 93005; 96374; 96375; 96376; J1815; J2270

== ENCOUNTER 2018-04-17 12:40 | Emergency (ER) | payer OTHER | END 2018-04-17 13:42 | disposition home or self-care (01) | LOC: ERS 12:40 | DX: T82.838A Hemorrhage due to vascular prosthetic devices, implants and grafts, initial encounter (principal); I10 Essential (primary) hypertension; Z99.2 Dependence on renal dialysis; Z79.899 Other long term (current) drug therapy | CPT/HCPCS: 99283 ==

== ENCOUNTER 2018-04-22 06:15 | Inpatient (IN) | payer OTHER ==
[2018-04-22 07:04] LABS: #Basophils 0.1 thou/uL (0.0-0.2); #Eosinphils 0.7 thou/uL (0.0-0.7); #Monocytes 1.2 thou/uL (0.11-0.59); #Neutrophils 7.3 thou/uL (1.40-6.50); %Basophils 0.6 % (0.0-1.0); %Lymphocytes 17.5 % (21.0-51.0); %Monocytes 10.8 % (0.0-10.0); %Neutrophils 65.2 % (42.0-75.0); Hemoglobin 8.8 g/dL (14.0-18.0); Mean Corpuscular Hemoglobin 29.6 pg (27.0-31.0); Mean Corpuscular Volume 87.2 fl (80.0-94.0); Mean Platelet Volume 7.7 fL (7.4-10.4); Platelet Count 236 thou/uL (130-400); RBC Distribution Width 15.2 % (11.5-14.5); Red Blood Cell (RBC) Count 2.97 mill/uL (4.70-6.10); White Blood Cell (WBC) Count 11.2 thou/uL (4.8-10.8)
[2018-04-22 07:24] LABS: ALT (SGPT) Less than 7 U/L (8-55); AST (SGOT) 11 U/L (5-34); Albumin 4.1 g/dL (3.5-5.0); Alkaline Phosphatase 82 U/L (40-150); Anion Gap 20 mmol/L (10-20); BUN (Urea Nitrogen) 60 mg/dL (8.9-20.6); Bilirubin, Total 0.2 mg/dL (0.2-1.2); CK (CPK) 77 U/L (30-200); Calc. Creatinine Clearance 0 mL/min (70-130); Calcium 8.5 mg/dL (7.8-10.44); Carbon Dioxide 26 mmol/L (22-29); Chloride 98 mmol/L (98-107); Estimated GFR-MDRD 5; Globulin 3.7 g/dL (2.4-3.5); Glucose 88 mg/dL (70-105); Protein, Total 7.8 g/dL (6.0-8.3); Sodium 137 mmol/L (136-145)
[2018-04-22] MEDS ORDERED: HYDROcodone/Acetaminophen 5/325 mg Tablet ONE ×2 (07:30→09:48)
[2018-04-22] MEDS ORDERED: Ondansetron ODT 8 MG TAB ONE (07:30)
--- NOTE | 2018-04-22 07:38 | RAD ---
UPRIGHT PORTABLE CHEST 1 VIEW: HISTORY: A 23-year-old male with a history of ESRD, high potassium level, body aches. COMPARISON: 04/08/18. FINDINGS: A left dual-lumen venous access catheter. Minimal cardiomegaly. Mild vascular congestion but overal l stable. No confluent pneumonia or overt edema. IMPRESSION: Stable mild cardiomegaly and vascular congestion. No new process. POS: [facility]
[2018-04-22 07:40] LABS: Potassium 6.8 mmol/L (3.5-5.1)
[2018-04-22] MEDS ORDERED: Vancomycin HCl 1 GM in Premix Bag 1 BAG IVPB SCH (10:30)
[2018-04-22] MEDS: Epoetin (ESRD) 10,000 UNITS/ML VIAL IVP SCH (11:51)
[2018-04-22] MEDS ORDERED: hydrOXYzine 25 MG TAB PO PRN (15:20)
[2018-04-22] MEDS ORDERED: traZODone HCl 50 MG TAB PO PRN (15:20)
[2018-04-22 15:21] VITALS: BMI 34.2
[2018-04-22] MEDS: traMADol HCl 50 MG TAB PO PRN (15:46)
[2018-04-22 16:21] LABS: Anion Gap 14 mmol/L (10-20); BUN (Urea Nitrogen) 23 mg/dL (8.9-20.6); Calc. Creatinine Clearance 28 mL/min (70-130); Calcium 9.9 mg/dL (7.8-10.44); Carbon Dioxide 29 mmol/L (22-29); Chloride 96 mmol/L (98-107); Estimated GFR-MDRD 12; Glucose 79 mg/dL (70-105); Potassium 4.5 mmol/L (3.5-5.1); Sodium 134 mmol/L (136-145)
--- NOTE | 2018-04-22 17:03 | HP ---
PRESENTING COMPLAINT: Generalized body ache. HISTORY OF PRESENT ILLNESS: Mr. Estee Martínez is a 23-year-old male with a past medical history of Goodpasture syndrome and end-stage renal disease, on hemodialysis, who presented to the emergency room complaining of generalized body aches. He reports that, usually when his potassium is high, he gets these aches and presented to the hospital for further evaluation. He complains of ache, but denies chest pain, shortness of breath, nausea, vomiting, or diarrhea. He had no urinary symptoms. At the emergency room, his pain was rated as 8/10, with no aggravating and relieving factors. Pain is generalized. He was found to have a serum potassium of 6.8, so Nephrology was consulted for urgent dialysis. PAST MEDICAL HISTORY: As stated in the HPI. PAST SURGICAL HISTORY: History of right kidney transplant, left arm fistula, right arm fistula. PSYCHIATRIC HISTORY: None. SOCIAL HISTORY: Denies alcohol, cigarettes, tobacco, or illicit drug use. FAMILY HISTORY: Reviewed and noncontributory. ALLERGIES: VICODIN (hives). HOME MEDICATIONS: Amlodipine 10 mg daily, metoprolol 150 mg daily, vitamin B complex 3 times a day with meals, Sensipar 30 mg daily, Renvela 800 mg 3 times a day, hydralazine 25 mg 3 times a day, [place] 7.5 mg/325 mg 1 tablet every 4 hours p.r.n. for pain. REVIEW OF SYSTEMS: All systems reviewed and negative except as stated in HPI. PHYSICAL EXAMINATION: VITAL SIGNS: Blood pressure 199/130, pulse rate 82, respiratory rate 26, temperature 98 degrees Fahrenheit, oxygen saturation 98% on room air. CONSTITUTIONAL: Not in acute distress, afebrile. HEENT: Normocephalic, atraumatic, not pale, anicteric. Moist mucous membranes. NECK: Supple. Full range of movement. No JVD. RESPIRATORY: Vesicular breath sounds bilaterally. No wheezes, rales, or rhonchi. CARDIOVASCULAR: S1 and S2 only with regular rate and rhythm. No murmurs, rubs , or gallops. ABDOMEN: Soft, nontender, nondistended. Bowel sounds normoactive. No hepatosplenomegaly. NEUROLOGIC: Alert, somewhat oriented to time, place, and person. No focal deficits. MUSCULOSKELETAL: No edema. PSYCHIATRIC: Normal mood and affect. LABORATORY DATA: Sodium 137, potassium 6.8, chloride 98, Anion gap 20, BUN 16, creatinine 14.25, glucose 88, calcium 8.5. WBC is 11.2, hemoglobin 8.8, platelet count 236. IMAGING: Chest x-ray shows stable mild cardiomegaly and vascular congestion. No new process. ASSESSMENT AND PLAN: 1. Hyperkalemia: Patient with a history of end-stage renal disease, on hemodialysis, who presented with hyperkalemia, was managed to get dialyzed today. Nephrology has been consulted for urgent dialysis and the patient has been taken to the dialysis suite already. He was not given calcium gluconate or any medication in the ER to reduce his hyperkalemia prior to hemodialysis. We will repeat serum potassium level and needs to evaluate and we will give a dose of calcium gluconate, insulin, D50, and nebulizer treatment. He might also require Kayexalate. Due to his hyperkalemia, depending on his repeat potassium level, he might need [id number] hemodialysis. 2. End-stage renal disease, on hemodialysis: Nephrology has been consulted, and he will be dialyzed as necessary. 3. Hypertensive urgency, likely due to nonadherence to medication: We will restart his home medication and monitor blood pressure closely. 4. History of Goodpasture's syndrome, requiring hemodialysis. He will be dialyzed on his regular-scheduled hemodialysis days while in hospital. Deep venous thrombosis prophylaxis: Patient does not believe he will not require such. CODE STATUS: FULL CODE. MTDD
[2018-04-22] MEDS: hydrALAZINE 25 MG TAB PO SCH (20:40)
[2018-04-22] MEDS: Acetaminophen 325 MG TAB PO PRN (20:40)
[2018-04-22] MEDS: Cinacalcet HCl 30 MG TAB PO SCH (20:40)
[2018-04-23 05:15] LABS: #Eosinphils 0.7 thou/uL (0.0-0.7); #Lymphocytes 1.6 thou/uL (1.20-3.40); #Monocytes 1.4 thou/uL (0.11-0.59); #Neutrophils 6.6 thou/uL (1.40-6.50); %Basophils 0.5 % (0.0-1.0); %Lymphocytes 15.1 % (21.0-51.0); %Neutrophils 63.5 % (42.0-75.0); Hemoglobin 9.4 g/dL (14.0-18.0); Mean Corpuscular HGB CONC 33.8 g/dL (32.0-36.0); Mean Corpuscular Hemoglobin 29.4 pg (27.0-31.0); Mean Corpuscular Volume 87.2 fl (80.0-94.0); Platelet Count 210 thou/uL (130-400); RBC Distribution Width 15.2 % (11.5-14.5); Red Blood Cell (RBC) Count 3.18 mill/uL (4.70-6.10); White Blood Cell (WBC) Count 10.3 thou/uL (4.8-10.8)
[2018-04-23 05:26] LABS: Anion Gap 21 mmol/L (10-20); BUN (Urea Nitrogen) 35 mg/dL (8.9-20.6); Calc. Creatinine Clearance 18 mL/min (70-130); Calcium 9.2 mg/dL (7.8-10.44); Carbon Dioxide 23 mmol/L (22-29); Chloride 93 mmol/L (98-107); Estimated GFR-MDRD 8; Glucose 88 mg/dL (70-105); Potassium 5.4 mmol/L (3.5-5.1); Sodium 132 mmol/L (136-145)
[2018-04-23] MEDS: traMADol HCl 50 MG TAB PO PRN ×2 (05:35→22:33)
[2018-04-23] MEDS: Ondansetron HCl/PF 4 MG/2 ML Vial IVP PRN ×2 (05:39→12:56)
--- NOTE | 2018-04-23 08:38 | CON ---
DATE OF CONSULTATION: 04/22/2018 CONSULTING PHYSICIAN: Dr. Jasso as well as . REASON FOR CONSULTATION: and hyperkalemia. REASON FOR ADMISSION: Weakness. HISTORY OF PRESENT ILLNESS: This is a 23-year-old -[place]ian male with history of end-stage re nal disease, history of failed kidney transplant given to the hospital with hyperkalemia. Patient do es have frequent episodes of hyperkalemia. No chest pain or palpitation. No nausea, vomiting, diarrhea. Patient is noncompliant with diet rest rictions. PAST MEDICAL HISTORY: Positive for end-stage renal disease, hypertension, anemia, history of renal t ransplant. PAST SURGICAL HISTORY: Renal transplant surgery, AV fistula placement. HOME MEDICATIONS: Amlodipine, metoprolol, vitamin B complex, Sensipar, Renvela, . ALLERGIES: HYDROCODONE and LORACARBEF. FAMILY HISTORY: Positive for hypertension. SOCIAL HISTORY: No alcohol, smoking, or illicit drug abuse. REVIEW OF SYSTEMS: The following complete review of systems was negative, unless otherwise mentioned in the HPI or below: Constitutional: Weight loss or gain, ability to conduct usual activities. Skin: Rash, itching. Eyes: Double vision, pain. ENT/Mouth: Nose bleeding, neck stiffness, pain, tenderness. Cardiovascular: Palpitations, dyspnea on exertion, orthopnea. Respiratory: Shortness of breath, wheezing, cough, hemoptysis, fever or night sweats. Gastrointestinal: Poor appetite, abdominal pain, heartburn, nausea, vomiting, constipation, or diarr hea. Genitourinary: Urgency, frequency, dysuria, nocturia. Musculoskeletal: Pain, swelling. Neurologic/Psychiatric: Anxiety, depression. Allergy/Immunologic: Skin rash, bleeding tendency. PHYSICAL EXAMINATION: GENERAL: This is an obese male in no apparent distress. VITAL SIGNS: Temperature 98.2, pulse 70, respiratory rate 18, and blood pressure 178/84. HEENT: Atraumatic, normocephalic. Oral mucosa is moist. NECK: Supple, no masses. CARDIOVASCULAR: S1 and S2 heard. Rate and rhythm regular. RESPIRATORY: Clear. GASTROINTESTINAL: Abdomen is soft. MUSCULOSKELETAL: No tenderness. No edema. DERMATOLOGIC: No skin rash. NEUROLOGIC: Alert and awake. PSYCHIATRIC: Mood and affect normal. LABORATORY DATA: Hemoglobin is 8.8, potassium is 6.8, BUN is 60, creatinine is 14.2, albumin is 4.1. ASSESSMENT AND PLAN: 1. End-stage renal disease. We will continue dialysis. 2. Hyperkalemia. Limit potassium. 3. Edema, controlled. 4. Hypertension. 5. Anemia. Monitor. We will have Epogen with dialysis. We will follow.
[2018-04-23] MEDS ORDERED: Amlodipine 10 MG TAB PO SCH (09:00)
[2018-04-23] MEDS: hydrALAZINE 25 MG TAB PO SCH ×2 (09:18→21:25)
[2018-04-23] MEDS: Stress 600 With Zinc 1 TAB PO SCH (09:18)
[2018-04-23] MEDS: Metoprolol Tartrate 100 MG TAB PO SCH (09:19)
[2018-04-23] MEDS ORDERED: Famotidine/PF 20 mg/2ml Vial SLOW IVP SCH ×3 (11:00→21:00)
[2018-04-23] MEDS ORDERED: hydrALAZINE 25 MG TAB PO SCH ×2 (13:00→15:00)
[2018-04-23 13:46] LABS: Troponin I Less than 0.010 ng/mL (< 0.028)
--- NOTE | 2018-04-23 14:44 | PDOC.PN ---
- Subjective Encounter Start Date: 04/23/18 Encounter Start Time: 09:00 Subjective: pt complains of RUQ and epigastric pain - Objective Resuscitation Status: Resuscitation Status FULL:Full Resuscitation Vital Signs & Weight: Vital Signs (12 hours) Temp Pulse Resp BP BP BP Pulse Ox 04/23/18 12:55 89 04/23/18 12:04 96.8 F L 89 181/105 H 95 04/23/18 09:19 78 04/23/18 09:18 78 173/107 H 04/23/18 08:00 98.4 F 78 16 173/107 H 95 04/23/18 04:00 98.4 F 95 17 141/93 H 96 Weight Weight 247 lb 3.2 oz Result Diagrams: 04/23/18 05:00 04/23/18 05:00 Phys Exam - Physical Examination HEENT: PERRLA, moist MMs, sclera anicteric, TM's clear, oral pharynx no lesions , 2+ tonsils Neck: no nodes, no JVD, supple, full ROM Respiratory: no wheezing, no rales, no rhonchi, wheezing present, clear to auscultation bilateral Cardiovascular: RRR, no significant murmur, no rub, gallop, irregular Gastrointestinal: soft mild tendereness to palpation of RUQ and epigastric area Musculoskeletal: no edema, pulses present, edema present Neurological: non-focal, normal sensation, moves all 4 limbs Dx/Plan - Plan hyperkalemia HTn RUQ pain/epigastric pain ESRD plan: pt's K post dialysis is 5.4. will change norvasc to nifidepine and increase hydralzine to 75tid. Lipase ordered, trop negative. RUQ ultrasound ordered since pt has epigastric and ruq pain. Pepcid ordered. * . Review of Systems - Review of Systems Constitutional: negative: fever, chills, sweats, weakness, malaise, other Eyes: negative: Pain, Vision Change, Conjunctivae Inflammation, Eyelid Inflammation, Redness, Other ENT: negative: Ear Pain, Ear Discharge, Nose Pain, Nose Discharge, Nose Congestion, Mouth Pain, Mouth Swelling, Throat Pain, Throat Swelling, Other Respiratory: negative: Cough, Dry, Shortness of Breath, Hemoptysis, SOB with Excertion, Pleuritic Pain, Sputum, Wheezing Cardiovascular: negative: chest pain, palpitations, orthopnea, paroxysmal nocturnal dyspnea, edema, light headedness, other Gastrointestinal: Abdominal Pain - Medications/Allergies Allergies/Adverse Reactions: Allergies Allergy/AdvReac Type Severity Reaction Status Date / Time loracarbef [From Lorabid] Allergy Severe Verified 11/09/17 16:11 Medications: Current Medications Acetaminophen (Tylenol) 650 mg PO Q4H PRN PRN Reason: Headache/Fever or Pain Last Admin: 04/22/18 20:40 Dose: 650 mg Amlodipine Besylate (Norvasc) 10 mg PO DAILY [facility] Last Admin: 04/23/18 09:19 Dose: 10 mg Cinacalcet (Sensipar) 30 mg PO HS [facility] Last Admin: 04/22/18 20:40 Dose: 30 mg Epoetin John (Procrit) 10,000 units IVP MoWeFr@1400 [facility] Last Admin: 04/22/18 11:51 Dose: 10,000 units Famotidine (Pepcid) 20 mg SLOW IVP 2100 [facility] Hydralazine HCl (Apresoline) 75 mg PO TID [facility] Hydroxyzine HCl (Atarax) 25 mg PO Q6H PRN PRN Reason: Itching Metoprolol Tartrate (Lopressor) 150 mg PO DAILY [facility] Last Admin: 04/23/18 09:19 Dose: 150 mg Multivitamins/Zinc (Stress 600 With Zinc) 1 tab PO DAILY [facility] Last Admin: 04/23/18 09:18 Dose: 1 tab Ondansetron HCl (Zofran) 4 mg IVP Q6H PRN PRN Reason: Nausea/Vomiting Last Admin: 04/23/18 12:56 Dose: 4 mg Sodium Chloride (Flush - Normal Saline) 10 ml IVF Q12HR [facility] Last Admin: 04/23/18 09:26 Dose: 10 ml Sodium Chloride (Flush - Normal Saline) 10 ml IVF PRN PRN PRN Reason: Saline Flush Tramadol HCl (Ultram) 100 mg PO BID PRN PRN Reason: Pain Last Admin: 04/23/18 05:35 Dose: 100 mg Trazodone HCl (Desyrel) 25 mg PO HS PRN PRN Reason: Insomnia
--- NOTE | 2018-04-23 14:46 | ULT ---
ULTRASOUND GALLBLADDER RIGHT UPPER QUADRANT: HISTORY: Right upper quadrant pain. COMPARISON: None. FINDINGS: Real-time keller scale, Doppler, and spectral analysis of the right upper quadrant of the abdomen is pe rformed. The pancreas is not well seen. Hepatic echotexture is slightly coarsened. The gallbladder wall thic kness is upper limits of normal, although likely due to volume overload due to patient's current flui d status. No pericholecystic fluid. The right kidney is atrophic with a hypoechoic focus measuring 9 mm interp olar right kidney, likely a cyst. No hepatic mass. IMPRESSION: 1. No evidence for cholecystitis. 2. Normal common bile duct. POS: [facility]
[2018-04-23] MEDS ORDERED: hydrALAZINE 10 MG TAB PO ONE (14:58)
--- NOTE | 2018-04-23 18:32 | PRG ---
DATE OF SERVICE: 04/23/2018 NEPHROLOGY PROGRESS NOTE SUBJECTIVE: Patient was seen and examined at bedside and overnight events noted. Patient denies any shortness of breath or chest pain or palpitation. No history of nausea or vomiting or diarrhea or f ever or chills or cramps. OBJECTIVE: GENERAL: This is a morbidly obese male in no apparent distress. VITAL SIGNS: Temperature 96.6, pulse 89, respiratory rate 18, blood pressure 180/105. HEENT: Atraumatic, normocephalic. Oral mucosa is moist. NECK: Supple. CARDIOVASCULAR: S1, S2 heard. Rate and rhythm regular. RESPIRATORY: Clear to auscultation. GASTROINTESTINAL: Abdomen is soft. MUSCULOSKELETAL: No tenderness. No edema. DERMATOLOGIC: No skin rash. NEUROLOGIC: Alert and awake and oriented x3. No focal neurologic deficits. Moving all the extremiti es. PSYCHIATRIC: Mood and affect normal. LABORATORY DATA: Potassium is 5.4, BUN 35, creatinine is 10.4. ASSESSMENT AND PLAN: 1. End-stage renal disease. We will continue on dialysis. 2. Hyperkalemia, better. Limit potassium in the diet, we will have dialysis. 3. Hypertension. Change amlodipine to nifedipine. No FAVIAN inhibitor due to hyperkalemia. 4. Edema, controlled. 5. Anemia, stable. Plan is to continue on dialysis Friday, Friday, and Friday. Limit potassium in the diet.
[2018-04-23] MEDS: Cinacalcet HCl 30 MG TAB PO SCH (21:25)
[2018-04-23] MEDS: NIFEdipine XL 60 MG TAB PO SCH (21:25)
[2018-04-23] MEDS: Acetaminophen 325 MG TAB PO PRN (23:59)
[2018-04-24 05:21] LABS: #Basophils 0.1 thou/uL (0.0-0.2); #Eosinphils 0.7 thou/uL (0.0-0.7); #Lymphocytes 1.9 thou/uL (1.20-3.40); %Eosinophils 8.6 % (0.0-10.0); %Lymphocytes 24.9 % (21.0-51.0); %Monocytes 12.8 % (0.0-10.0); %Neutrophils 52.7 % (42.0-75.0); Hemoglobin 8.8 g/dL (14.0-18.0); Mean Corpuscular HGB CONC 34.7 g/dL (32.0-36.0); Mean Corpuscular Hemoglobin 30.2 pg (27.0-31.0); Mean Corpuscular Volume 86.9 fl (80.0-94.0); Mean Platelet Volume 8.5 fL (7.4-10.4); Platelet Count 202 thou/uL (130-400); RBC Distribution Width 15.1 % (11.5-14.5); Red Blood Cell (RBC) Count 2.91 mill/uL (4.70-6.10); White Blood Cell (WBC) Count 7.6 thou/uL (4.8-10.8)
[2018-04-24 05:35] LABS: Anion Gap 22 mmol/L (10-20); BUN (Urea Nitrogen) 46 mg/dL (8.9-20.6); Calc. Creatinine Clearance 14 mL/min (70-130); Calcium 8.7 mg/dL (7.8-10.44); Carbon Dioxide 23 mmol/L (22-29); Chloride 92 mmol/L (98-107); Estimated GFR-MDRD 6; Glucose 90 mg/dL (70-105); Potassium 5.7 mmol/L (3.5-5.1); Sodium 131 mmol/L (136-145)
[2018-04-24 07:29] VITALS: TEMP 98.6
[2018-04-24] MEDS ORDERED: Epoetin (ESRD) 10,000 UNITS/ML VIAL IVP SCH (09:00)
--- NOTE | 2018-04-24 11:57 | PRG ---
DATE OF SERVICE: 04/24/2018 SUBJECTIVE: Patient was seen and examined at bedside and overnight events noted. Patient denies an y shortness of breath or chest pain or palpitation. No history of nausea or vomiting or diarrhea or fever or chills or cramps. OBJECTIVE: GENERAL: This is a morbidly obese male in no apparent distress. VITAL SIGNS: Temperature 96, pulse 73, respirations 16, blood pressure 139/90. HEENT: Atraumatic, normocephalic. Oral mucosa is moist. NECK: Supple. CARDIOVASCULAR: S1S2 heard. Rate and rhythm regular. RESPIRATORY: Clear to auscultation. GASTROINTESTINAL: Abdomen is soft. MUSCULOSKELETAL: No tenderness, no edema. DERMATOLOGIC: No skin rash. NEUROLOGIC: Alert and awake and oriented x3. No focal neurologic deficits. Moving all the extremit ies. PSYCHIATRIC: Mood and affect normal. LABORATORY DATA: Potassium is 5.7, BUN 46, creatinine 3.5. ASSESSMENT AND PLAN: 1. End-stage renal disease on hemodialysis. We will have dialysis today, Friday, Friday, and Fri day. 2. Hyperkalemia. Limit potassium in the diet and have dialysis. 3. Hypertension, seems to be better. 4. Edema, controlled. 5. Anemia. Continue EFFIE. Plan is to continue on dialysis as tolerated.
[2018-04-24] MEDS: Metoprolol Tartrate 100 MG TAB PO SCH (13:28)
[2018-04-24] MEDS: NIFEdipine XL 60 MG TAB PO SCH (13:28)
[2018-04-24] MEDS: hydrALAZINE 25 MG TAB PO SCH ×2 (13:29→14:33)
[2018-04-24] MEDS: Stress 600 With Zinc 1 TAB PO SCH (14:33)
[2018-04-24 16:38] VITALS: BP 153/87
[2018-04-24] MEDS: Epoetin (ESRD) 10,000 UNITS/ML VIAL IVP SCH (17:15)
--- NOTE | 2018-04-25 18:45 | DIS ---
DATE OF ADMISSION: 04/22/2018 DATE OF DISCHARGE: 04/24/2018 DISCHARGE DIAGNOSES: 1. Hyperkalemia. 2. Possible bacteremia. 3. Hypertension. 4. End-stage renal disease. 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 The patient was found to have hyperkalemia, potassium was found to be as high as 6.8. The patient under went emergent dialysis. Patient does have a temporary dialysis catheter on the left chest wall and a lso has a new graft which was placed on his right arm. Blood cultures were drawn from that, the tunn el catheter indicated a few colonies of Staph epidermis. The patient was given a dose of vancomycin in the ER. I did speak with Renal who recommended the patient to get 2 weeks of IV vancomycin per sl iding scale in dialysis. The patient's potassium continued to improve. Also, he was on lisinopril, which has been discontinued. The patient's blood pressure in the hospital was uncontrolled. He was started on Procardia and his Norvasc was discontinued. PHYSICAL EXAMINATION: VITAL SIGNS: 98.6, 73, 18, 98% room air, 153/87 was his blood pressure. GENERAL: He was awake, alert, oriented x3 and he does not appear in distress. CARDIOVASCULAR: S1, S2 present. No murmurs, rubs or gallops. ABDOMEN: Soft, nontender. Bowel sounds are present x2. EXTREMITIES: No edema. DISCHARGE MEDICATIONS: Are the following: Metoprolol 150 mg daily, Sensipar 30 mg at bedtime, trazo done 200 mg at bedtime, tramadol 100 mg b.i.d. p.r.n., hydralazine 75 mg t.i.d. and Procardia 60 mg b .i.d. Also, of note, he did complain of some epigastric right upper quadrant pain. Troponin x1 was negative. Right upper quadrant ultrasound did not indicate any acute abnormalities. The patient was given Pepcid, which helped with his pain relief.
== END 2018-04-24 17:16 | disposition home or self-care (01) | DRG 640 ==
LOC: ERS 06:15 → 2NO 09:15
PROVIDERS: ADMIT Internal Medicine; ATTEND Internal Medicine
PROC: 5A1D70Z Performance of Urinary Filtration, Intermittent, Less than 6 Hours Per Day (ICD-10-PCS; principal; 2018-04-24)
DX: E87.5 Hyperkalemia (principal); N18.6 End stage renal disease; I12.0 Hypertensive chronic kidney disease with stage 5 chronic kidney disease or end stage renal disease; M31.0 Hypersensitivity angiitis; R78.81 Bacteremia; I16.0 Hypertensive urgency; D63.1 Anemia in chronic kidney disease; Z88.5 Allergy status to narcotic agent; Z99.2 Dependence on renal dialysis
CPT/HCPCS: 36415; 71045; 76705; 80048; 80053; 82550; 83690; 84484; 85025; 87040; 87070; 87077; 87186; 87205; 90935; 93005; A4216; G0257; J2405; J3370; Q4081; S0028

== ENCOUNTER 2018-05-01 22:49 | Emergency (ER) | payer OTHER ==
[2018-05-01 23:31] LABS: #Eosinphils 0.7 thou/uL (0.0-0.7); #Monocytes 0.9 thou/uL (0.11-0.59); #Neutrophils 5.9 thou/uL (1.40-6.50); %Basophils 0.5 % (0.0-1.0); %Eosinophils 7.2 % (0.0-10.0); %Lymphocytes 20.6 % (21.0-51.0); %Neutrophils 62.7 % (42.0-75.0); Hemoglobin 9.9 g/dL (14.0-18.0); Mean Corpuscular HGB CONC 32.4 g/dL (32.0-36.0); Mean Corpuscular Volume 89.6 fl (80.0-94.0); Mean Platelet Volume 7.4 fL (7.4-10.4); Platelet Count 315 thou/uL (130-400); RBC Distribution Width 16.4 % (11.5-14.5); Red Blood Cell (RBC) Count 3.42 mill/uL (4.70-6.10); White Blood Cell (WBC) Count 9.5 thou/uL (4.8-10.8)
--- NOTE | 2018-05-01 23:38 | RAD ---
CHEST ONE VIEW: 05/01/18 HISTORY: Dyspnea. COMPARISON: Chest radiograph 04/22/18. FINDINGS: Lungs are hypoinflated. Heart size is enlarged. Mild edema. No pneumothorax or large effusion. IMPRESSION: Cardiomegaly with mild pulmonary edema. POS: [facility]
[2018-05-01 23:54] LABS: ALT (SGPT) Less than 7 U/L (8-55); AST (SGOT) 14 U/L (5-34); Albumin 4.4 g/dL (3.5-5.0); Alkaline Phosphatase 89 U/L (40-150); Anion Gap 18 mmol/L (10-20); BUN (Urea Nitrogen) 27 mg/dL (8.9-20.6); Bilirubin, Total 0.3 mg/dL (0.2-1.2); Calc. Creatinine Clearance 0 mL/min (70-130); Calcium 9.4 mg/dL (7.8-10.44); Carbon Dioxide 28 mmol/L (22-29); Chloride 93 mmol/L (98-107); Estimated GFR-MDRD 7; Globulin 3.9 g/dL (2.4-3.5); Glucose 120 mg/dL (70-105); Potassium 4.7 mmol/L (3.5-5.1); Protein, Total 8.3 g/dL (6.0-8.3); Sodium 134 mmol/L (136-145)
[2018-05-02 01:19] LABS: CK (CPK) 65 U/L (30-200); Lipase 33 U/L (8-78)
[2018-05-02 01:20] LABS: CKMB 0.4 ng/mL (0-6.6); Troponin I Less than 0.010 ng/mL (< 0.028)
== END 2018-05-02 04:27 | disposition home or self-care (01) ==
LOC: ERS 22:49
DX: M54.5 Low back pain (principal); R06.02 Shortness of breath; I12.9 Hypertensive chronic kidney disease with stage 1 through stage 4 chronic kidney disease, or unspecified chronic kidney disease; N18.9 Chronic kidney disease, unspecified; Z79.899 Other long term (current) drug therapy; Z99.2 Dependence on renal dialysis
CPT/HCPCS: 71045; 80053; 82553; 83690; 83880; 84484; 85025; 93005; 94760; 96361; 96374; 96376; J2270

== ENCOUNTER 2018-05-04 00:51 | Emergency (ER) | payer OTHER ==
[2018-05-04] MEDS ORDERED: HYDROcodone/Acetaminophen 5/325 mg Tablet ONE (02:43)
--- NOTE | 2018-05-04 07:53 | RAD ---
PORTABLE CHEST 1 VIEW: Date: 05/04/18 Time: 0113 hours HISTORY: End-stage renal failure, missed dialysis yesterday. Fluid overload. FINDINGS/IMPRESSION: Comparison made with exam of 05/01/18. The heart size is prominent. Dialysis catheter remains in place. Mild pulmonary vascular congestion i s present. No lobar consolidation, pneumothoraces, or large effusions are seen. POS: [facility]
== END 2018-05-04 03:13 | disposition home or self-care (01) ==
LOC: ERS 00:51
DX: I12.0 Hypertensive chronic kidney disease with stage 5 chronic kidney disease or end stage renal disease (principal); N18.6 End stage renal disease; Z99.2 Dependence on renal dialysis
CPT/HCPCS: 71045; 93005

== ENCOUNTER 2018-05-15 01:07 | Inpatient (IN) | payer OTHER ==
[2018-05-15 02:01] LABS: #Basophils 0.1 thou/uL (0.0-0.2); #Eosinphils 0.4 thou/uL (0.0-0.7); #Lymphocytes 2.3 thou/uL (1.20-3.40); #Monocytes 1.2 thou/uL (0.11-0.59); #Neutrophils 6.7 thou/uL (1.40-6.50); %Basophils 0.6 % (0.0-1.0); %Eosinophils 4.2 % (0.0-10.0); %Lymphocytes 21.5 % (21.0-51.0); %Monocytes 11.1 % (0.0-10.0); %Neutrophils 62.6 % (42.0-75.0); Hemoglobin 10.6 g/dL (14.0-18.0); Mean Corpuscular HGB CONC 34.2 g/dL (32.0-36.0); Mean Corpuscular Hemoglobin 30.5 pg (27.0-31.0); Mean Corpuscular Volume 89.2 fL (78.0-98.0); Mean Platelet Volume 8.1 fL (7.4-10.4); Platelet Count 254 thou/uL (130-400); RBC Distribution Width 16.3 % (11.5-14.5); Red Blood Cell (RBC) Count 3.49 mill/uL (4.70-6.10); White Blood Cell (WBC) Count 10.7 thou/uL (4.8-10.8)
[2018-05-15] MEDS ORDERED: traMADol HCl 50 MG TAB ONE (02:12)
[2018-05-15 02:19] LABS: Anion Gap 23 mmol/L (10-20); BUN (Urea Nitrogen) 53 mg/dL (8.9-20.6); Calc. Creatinine Clearance 0 mL/min (70-130); Calcium 10.1 mg/dL (7.8-10.44); Carbon Dioxide 23 mmol/L (22-29); Chloride 97 mmol/L (98-107); Estimated GFR-MDRD 5; Glucose 95 mg/dL (70-105); Potassium 5.9 mmol/L (3.5-5.1); Sodium 137 mmol/L (136-145)
[2018-05-15] MEDS ORDERED: Insulin Regular 300 UNITS/3 ML VIAL ONE (02:54)
[2018-05-15] MEDS ORDERED: Sodium Bicarb 50 MEQ/50 ML Abboject 8.4% SYRINGE ONE (02:54)
[2018-05-15] MEDS ORDERED: Dextrose 50% Abboject 50 ML SYRINGE ONE (02:54)
[2018-05-15] MEDS ORDERED: Calcium Chloride 1 GM/10 ML Abboject SYRINGE ONE (02:54)
[2018-05-15] MEDS ORDERED: Ondansetron ODT 4 MG TAB ONE (03:55)
[2018-05-15] MEDS ORDERED: Acetaminophen 500 MG TAB ONE (03:55)
[2018-05-15] MEDS ORDERED: Ondansetron HCl/PF 4 MG/2 ML Vial IVP PRN (04:08)
[2018-05-15] MEDS ORDERED: Acetaminophen 325 MG TAB PO PRN (04:08)
[2018-05-15] MEDS ORDERED: hydrALAZINE 20 MG/ML VIAL ONE (05:06)
--- NOTE | 2018-05-15 05:13 | HP ---
PRIMARY CARE PHYSICIAN: Dr. Enoch Zeng. CODE STATUS: FULL CODE. TIME OF EVALUATION: 03:50 a.m. CHIEF COMPLAINT: Generalized weakness and dialysis catheter malfunction. HISTORY OF PRESENT ILLNESS: This is a 23-year-old male with past medical history of end-stage renal disease on hemodialysis, follows with Dr. Arrieta as outpatient, came to the hospital after having generalized weakness and noticing some purulent drainage from the side of the hemodialysis catheter, the symptoms have been present for a few days associated with diarrhea, last dialysis was on Friday. No clear triggers, no associated factors, patient was also found to have potassium 5.9 and is being admitted for dialysis catheter malfunction and hyperkalemia. REVIEW OF SYSTEMS: Constitutional: No fever, no chills, generalized weakness. Respiratory: No cough, no sputum production, no shortness of breath. Cardiovascular: No chest pain, no palpitation, no shortness of breath. Gastrointestinal: Patient has nausea, diarrhea, no abdominal pain. CLINICAL REHABILITATION LIAISON: No dizziness, headache, or feeling lightheaded. Genitourinary: No burning with urination. Extremities: No leg swelling. All other systems were reviewed and were negative except for the findings mentioned in the HPI. PAST MEDICAL HISTORY: Patient has a history of cardiomyopathy, hypertension, kidney failure on dialysis Friday, Friday, and Friday. PAST SURGICAL HISTORY: Right kidney transplant, left arm fistula, left chest dialysis catheter, right arm fistula. PSYCHIATRIC HISTORY: No previous psychiatric history. SOCIAL HISTORY: No alcohol, no drugs. No smoking. FAMILY HISTORY: Mother and father are healthy. ALLERGIES: Positive to LORABID and VICODIN. REPORTED HOME MEDICATIONS: Lopressor 150 mg once a day, nifedipine 60 mg 2 times a day, hydralazine 25 mg 3 times a day, Oracea 3 times a day unknown dose , vitamin B12 oral once a day. PHYSICAL EXAMINATION: VITAL SIGNS: On presentation, heart rate 94, temperature 98.1, respiratory rate 18, blood pressure 152/125. GENERAL APPEARANCE: Patient is alert, oriented, not in any acute distress, showing generalized weakness. HEENT: Eyes: Normal conjunctivae. Moist oral mucosa. Anicteric. NECK: No JVD. RESPIRATORY: Bilateral air entry. No rales, no wheezing. Symmetric expansion. CARDIOVASCULAR: Normal rate, regular rhythm. No murmurs, no gallop. No edema. ABDOMEN: Soft, normal bowel sounds. MUSCULOSKELETAL: Baseline range of motion or strength. No tenderness. SKIN: Warm and intact. No pallor, no rash. Patient reported having some drainage from the site of the renal catheter. NEUROLOGIC: Baseline sensory. No evidence of any focal weakness. Baseline speech. Cranial nerves seems to be intact. PSYCHIATRIC: Patient in a good mood. No anxiety, oriented, optimal judgment. IMAGING: EKG was reviewed. The patient's heart rate at 97 with hyperacute T waves likely secondary to hyperkalemia. Chest x-ray was reviewed reported as pulmonary congestion, mild cardiomegaly. LABORATORY DATA: Reviewed. The patient has white count 10.7, hemoglobin 10.6, MCV 89, platelet count 254. Sodium 137, potassium 5.9, chloride 97, anion gap 23, BUN 53, creatinine 16.3, GFR 5. ASSESSMENT AND PLAN: 1. Acute hypokalemia likely secondary to end-stage renal disease. Patient gets dialysis on Friday, Friday, and Friday. Case was discussed with Dr. Sofia. by ER physician, who will see the patient in the morning for possible hemodialysis. 2. Generalized weakness, unclear etiology, no evidence of infection as of now. He has been seen, will monitor, culture has been sent. We will follow, if any evidence of infection appears, we will start broad-spectrum antibiotics. 3. Possible dialysis catheter malfunction, patient reported having some drainage next to the catheter, we will follow up cultures and has been sent and treat accordingly. Nephrology will see the patient in the a.m. 4. Hypertensive urgency. We will reconcile home meds, we will treat p.r.n. medications. 5. Deep venous thrombosis prophylaxis. 6. Normocytic anemia. We will defer to Nephrology for further treatment, this is chronic, stable, no need for any acute intervention at this point. [facility]
[2018-05-15] MEDS ORDERED: Labetalol HCl 100 MG/20 ML VIAL ONE (06:02)
[2018-05-15 07:55] VITALS: BMI 35.4
--- NOTE | 2018-05-15 07:59 | RAD ---
SINGLE VIEW OF THE CHEST: COMPARISON: 05/04/18. HISTORY: Chest pain. FINDINGS: A single view of the chest shows an enlarged but stable cardiomediastinal silhouette. The dialysis c atheter is unchanged in position. There is no evidence of consolidation, mass, or pleural effusion. IMPRESSION: Cardiomegaly without evidence of acute cardiopulmonary disease. POS: [facility]
[2018-05-15] MEDS ORDERED: Enoxaparin Sodium 30 MG/0.3 ML SYRINGE SC SCH (09:00)
[2018-05-15] MEDS ORDERED: NIFEdipine XL 60 MG TAB PO SCH (10:30)
[2018-05-15] MEDS ORDERED: Metoprolol Tartrate 50 MG TAB PO SCH (10:30)
[2018-05-15 10:58] LABS: Anion Gap 25 mmol/L (10-20); BUN (Urea Nitrogen) 59 mg/dL (8.9-20.6); Calc. Creatinine Clearance 12 mL/min (70-130); Calcium 9.4 mg/dL (7.8-10.44); Carbon Dioxide 20 mmol/L (22-29); Chloride 99 mmol/L (98-107); Estimated GFR-MDRD 4; Glucose 100 mg/dL (70-105); Potassium 6.3 mmol/L (3.5-5.1); Sodium 138 mmol/L (136-145)
[2018-05-15] MEDS ORDERED: Heparin 1,000 UNITS/ML VIAL ONE (11:11)
--- NOTE | 2018-05-15 14:37 | CON ---
DATE OF CONSULTATION: 05/15/2018 NEPHROLOGY CONSULTATION CONSULTING PHYSICIAN: Dr. Giraldo. REASON FOR CONSULTATION: Hyperkalemia and . REASON FOR ADMISSION: Weakness. HISTORY OF PRESENT ILLNESS: This is a 23-year-old -[place] male with history of end-stage re nal disease, hypertension, cardiomyopathy, who came to the hospital with weakness and found to have h yperkalemia. Nephrology consulted for dialysis. The patient due for dialysis today. No nausea or v omiting. No chest pain, palpitation, no shortness of breath. PAST MEDICAL HISTORY: Positive for cardiomyopathy; hypertension; end-stage renal disease on dialysis Friday, Friday, and Friday; history of renal transplant. PAST SURGICAL HISTORY: Kidney transplant surgery on left and dialysis access surgery. HOME MEDICATIONS: Lopressor, nifedipine, hydralazine, Oracea, vitamin B12. ALLERGIES: LORTAB and VICODIN. SOCIAL HISTORY: No smoking, alcohol or cigarettes. FAMILY HISTORY: No history of kidney disease. REVIEW OF SYSTEMS: The following complete review of systems was negative, unless otherwise mentioned in the HPI or below: Constitutional: Weight loss or gain, ability to conduct usual activities. Sk in: Rash, itching. Eyes: Double vision, pain. ENT/Mouth: Nose bleeding, neck stiffness, pain, te nderness. Cardiovascular: Palpitations, dyspnea on exertion, orthopnea. Respiratory: Shortness of breath, wheezing, cough, hemoptysis, fever or night sweats. Gastrointestinal: Poor appetite, abdom inal pain, heartburn, nausea, vomiting, constipation, or diarrhea. Genitourinary: Urgency, frequenc y, dysuria, nocturia. Musculoskeletal: Pain, swelling. Neurologic/Psychiatric: Anxiety, depressio n. Allergy/Immunologic: Skin rash, bleeding tendency. PHYSICAL EXAMINATION: GENERAL: This is a morbidly obese male, in no apparent distress. VITAL SIGNS: Temperature 97.9, pulse 83, respiratory rate 18, blood pressure 160/107. HEENT: Atraumatic, normocephalic. Oral mucosa is moist. NECK: Supple. CARDIOVASCULAR: S1, S2 heard. RESPIRATORY: Clear. MUSCULOSKELETAL: 1+ edema. DERMATOLOGIC: No skin rash. NEUROLOGIC: Alert and awake. LABORATORY DATA: Hemoglobin is 10.6, potassium 5.9, BUN 53, creatinine 16.2. ASSESSMENT AND PLAN: 1. End-stage renal disease. We will continue on dialysis. Plan is for dialysis. 2. Severe hyperkalemia, we will have dialysis morning. 3. Edema, controlled. 4. Hypertension. 5. Anemia. 6. Obesity. 7. Plan is to continue hemodialysis Friday, Friday, and Friday. Limit potassium intake. We will follow. Thank you for the consult.
[2018-05-15] MEDS: Sevelamer Carbonate 800 MG TAB PO SCH ×2 (15:43→18:01)
[2018-05-15] MEDS: hydrALAZINE 10 MG TAB PO SCH ×2 (16:03→21:18)
[2018-05-15] MEDS: HYDROcodone/Acetaminophen 5/325 mg Tablet PO PRN (18:01)
[2018-05-15] MEDS: NIFEdipine XL 60 MG TAB PO SCH (21:18)
[2018-05-15] MEDS: Metoprolol Tartrate 50 MG TAB PO SCH (21:19)
[2018-05-15] MEDS: diphenhydrAMINE 25 MG CAP PO PRN (22:15)
[2018-05-16 05:48] LABS: #Eosinphils 0.5 thou/uL (0.0-0.7); #Lymphocytes 2.4 thou/uL (1.20-3.40); #Monocytes 1.1 thou/uL (0.11-0.59); #Neutrophils 3.8 thou/uL (1.40-6.50); %Basophils 0.4 % (0.0-1.0); %Eosinophils 5.9 % (0.0-10.0); %Monocytes 13.8 % (0.0-10.0); %Neutrophils 48.9 % (42.0-75.0); Hemoglobin 11.5 g/dL (14.0-18.0); Mean Corpuscular HGB CONC 33.5 g/dL (32.0-36.0); Mean Corpuscular Hemoglobin 30.1 pg (27.0-31.0); Mean Corpuscular Volume 89.7 fL (78.0-98.0); Mean Platelet Volume 8.1 fL (7.4-10.4); Platelet Count 225 thou/uL (130-400); RBC Distribution Width 16.6 % (11.5-14.5); Red Blood Cell (RBC) Count 3.82 mill/uL (4.70-6.10); White Blood Cell (WBC) Count 7.8 thou/uL (4.8-10.8)
[2018-05-16 06:16] LABS: Anion Gap 20 mmol/L (10-20); BUN (Urea Nitrogen) 30 mg/dL (8.9-20.6); Calc. Creatinine Clearance 19 mL/min (70-130); Calcium 10.2 mg/dL (7.8-10.44); Carbon Dioxide 26 mmol/L (22-29); Chloride 93 mmol/L (98-107); Estimated GFR-MDRD 7; Glucose 81 mg/dL (70-105); Potassium 6.1 mmol/L (3.5-5.1); Sodium 133 mmol/L (136-145)
[2018-05-16] MEDS: Sevelamer Carbonate 800 MG TAB PO SCH ×3 (09:09→19:28)
[2018-05-16] MEDS: hydrALAZINE 10 MG TAB PO SCH ×3 (09:45→20:56)
--- NOTE | 2018-05-16 10:14 | PRG ---
DATE OF SERVICE: 05/16/2018 SUBJECTIVE: Patient was seen and examined at bedside and overnight events noted. Patient denies any shortness of breath or chest pain or palpitation. No history of nausea or vomiting or diarrhea or f ever or chills or cramps. OBJECTIVE: GENERAL: This is an obese male in no apparent distress. VITAL SIGNS: Temperature 97.9, pulse 84, respiratory rate 16, blood pressure 181/110. HEENT: Atraumatic, normocephalic. Oral mucosa is moist. NECK: Supple. CARDIOVASCULAR: S1, S2 heard. Rate and rhythm regular. RESPIRATORY: Clear to auscultation. GASTROINTESTINAL: Abdomen is soft. MUSCULOSKELETAL: No tenderness. No edema. DERMATOLOGIC: No skin rash. NEUROLOGIC: Alert and awake and oriented x3. No focal neurologic deficits. Moving all the extremiti es. PSYCHIATRIC: Mood and affect normal. LABORATORY DATA: Potassium is 6.1, BUN 30, creatinine is 7.8. ASSESSMENT AND PLAN: 1. End-stage renal disease. We will have dialysis today. 2. Severe hyperkalemia, not getting better. We will have a low potassium diet and one dose of Kayex alate and also had dialysis. 3. Edema, controlled. 4. Hypertension. 5. Anemia. 6. Obesity. Plan is to have dialysis today for 3 hours, limit potassium in the diet. Plan discussed with Dr. Susan perkins.
[2018-05-16] MEDS ORDERED: Vancomycin HCl 1.5 GM in Sodium Chloride 0.9% 250 ML 300 ML IVPB SCH (11:30)
[2018-05-16] MEDS ORDERED: Vancomycin HCl 750 MG in Sodium Chloride 0.9% 250 ML 250 ML IVPB SCH (11:30)
[2018-05-16] MEDS ORDERED: Vancomycin HCl 1 GM in Premix Bag 1 BAG IVPB SCH (11:30)
[2018-05-16] MEDS ORDERED: HOLD VANCOMYCIN FOR LEVEL >20 FS SCH (11:30)
[2018-05-16] MEDS ORDERED: Vancomycin Sliding Scale 1 EACH FS ONE (11:30)
[2018-05-16] MEDS ORDERED: Vancomycin HCl 1.25 GM in Sodium Chloride 0.9% 250 ML 250 ML IVPB SCH (11:30)
[2018-05-16] MEDS: NIFEdipine XL 60 MG TAB PO SCH ×2 (12:12→20:54)
[2018-05-16] MEDS: Metoprolol Tartrate 50 MG TAB PO SCH ×2 (12:13→20:55)
[2018-05-16] MEDS: Cyanocobalamin (Vitamin B-12) 1,000 MCG TAB PO SCH (12:19)
--- NOTE | 2018-05-16 12:43 | PDOC.PN ---
- Subjective Encounter Start Date: 05/16/18 Encounter Start Time: 07:00 Pt seen for followup re: bacteremia. Denies chest pain or shortness of breath. Denies fevers or chills. Complains of low back ache. - Objective MAR Reviewed: Yes Vital Signs & Weight: Vital Signs (12 hours) Temp Pulse Resp BP Pulse Ox 05/16/18 12:01 99.0 F 93 20 122/80 96 05/16/18 07:55 97.9 F 84 16 05/16/18 07:45 97.9 F 84 16 181/110 H 96 05/16/18 04:00 98.8 F 75 18 179/92 H 96 Weight Weight 275 lb 9.245 oz I&O: 05/15/18 05/16/18 05/17/18 06:59 06:59 06:59 Intake Total 100 Balance 100 Result Diagrams: 05/16/18 05:28 05/16/18 05:28 EKG Reviewed by me: Yes (Tele: NSR) Phys Exam - Physical Examination Obese HEENT: moist MMs, sclera anicteric, oral pharynx no lesions, 2+ tonsils Neck: no nodes, no JVD, supple, full ROM Respiratory: no wheezing, no rales, no rhonchi, clear to auscultation bilateral Cardiovascular: RRR, no rub S1, s2 Gastrointestinal: soft, non-tender, no distention, positive bowel sounds Musculoskeletal: pulses present Neurological: moves all 4 limbs Psychiatric: normal affect, A&O x 3 Dx/Plan (1) Bacteremia Code(s): R78.81 - BACTEREMIA Status: Acute Comment: one culture +ve for G+ cocci, start vancomycin (2) Back pain Code(s): M54.9 - DORSALGIA, UNSPECIFIED Status: Acute Comment: If back pain continues, may need further imaging to r/o diskitis etc, given his bacteremia (3) Hyperkalemia Code(s): E87.5 - HYPERKALEMIA Status: Acute Comment: pt having dialysis (4) ESRD (end stage renal disease) on dialysis Code(s): N18.6 - END STAGE RENAL DISEASE; Z99.2 - DEPENDENCE ON RENAL DIALYSIS Status: Chronic Comment: Dialysis per nephrology service (5) Migraine Code(s): G43.909 - MIGRAINE, UNSP, NOT INTRACTABLE, WITHOUT STATUS MIGRAINOSUS Status: Chronic Qualifiers: Intractability: intractable Comment: stable (6) Anemia of renal disease Code(s): D63.1 - ANEMIA IN CHRONIC KIDNEY DISEASE Status: Chronic Comment: stable (7) GERD (gastroesophageal reflux disease) Code(s): K21.9 - GASTRO-ESOPHAGEAL REFLUX DISEASE WITHOUT ESOPHAGITIS Status: Chronic (8) H/O kidney transplant Status: Chronic (9) Hypertension Code(s): I10 - ESSENTIAL (PRIMARY) HYPERTENSION Status: Chronic Qualifiers: Hypertension type: secondary to other renal disorders Qualified Code(s): I15.1 - Hypertension secondary to other renal disorders; N28.89 - Other specified disorders of kidney and ureter; N28.89 - Other specified disorders of kidney and ureter Comment: Monitor vital signs, titrate antihypertensives as needed (10) Obesity (BMI 30.0-34.9) Code(s): E66.9 - OBESITY, UNSPECIFIED Status: Chronic - Plan * . Review of Systems - Review of Systems Constitutional: negative: fever, chills, sweats, weakness, malaise Respiratory: negative: Cough, Shortness of Breath, SOB with Excertion, Pleuritic Pain, Wheezing Cardiovascular: negative: chest pain, palpitations, orthopnea, paroxysmal nocturnal dyspnea, edema, light headedness Genitourinary: negative: Dysuria, Frequency, Incontinence, Hematuria, Retention Musculoskeletal: Back Pain. negative: Neck Pain, Shoulder Pain, Arm Pain, Hand Pain, Leg Pain, Foot Pain Skin: negative: Rash, Lesions, Ford, Bruising - Medications/Allergies Allergies/Adverse Reactions: Allergies Allergy/AdvReac Type Severity Reaction Status Date / Time loracarbef [From Lorabid] Allergy Severe Verified 11/09/17 16:11 Medications: Current Medications Acetaminophen (Tylenol) 650 mg PO Q4H PRN PRN Reason: Headache/Fever or Pain Hydrocodone Bitart/Acetaminophen ([place] 5/325) 1 tab PO Q6H PRN PRN Reason: Moderate Pain (4-6) Last Admin: 05/15/18 18:01 Dose: 1 tab Cyanocobalamin (Vitamin B-12) 2,000 mcg PO DAILY [facility] Last Admin: 05/16/18 12:19 Dose: 2,000 mcg Diphenhydramine HCl (Benadryl) 25 mg PO Q6H PRN PRN Reason: .ITCHING Last Admin: 05/15/18 22:15 Dose: 25 mg Hydralazine HCl (Apresoline) 30 mg PO TID [facility] Last Admin: 05/16/18 09:45 Dose: 30 mg Vancomycin HCl 1.5 gm/ Sodium (Chloride) 300 mls @ 200 mls/hr IVPB [facility] Vancomycin HCl 1.25 gm/ Sodium (Chloride) 250 mls @ 166.667 mls/hr IVPB [facility] Vancomycin HCl 1 gm/ Device 200 mls @ 200 mls/hr IVPB [facility] Vancomycin HCl 750 mg/ Sodium (Chloride) 250 mls @ 250 mls/hr IVPB [facility] Vancomycin HCl 1 gm/ Device 200 mls @ 200 mls/hr IVPB NOW [facility] Stop: 05/16/18 14:00 Last Admin: 05/16/18 12:11 Dose: 200 mls Metoprolol Tartrate (Lopressor) 75 mg PO BID [facility] Last Admin: 05/16/18 12:13 Dose: 75 mg Miscellaneous Medication (Pharmacy To Dose) 0 each IVPB ASDIR [facility] Morphine Sulfate (Morphine) 2 mg SLOW IVP 1215 [facility] Stop: 05/16/18 14:15 Last Admin: 05/16/18 12:10 Dose: 2 mg Nifedipine (Procardia Xl) 60 mg PO BID [facility] Last Admin: 05/16/18 12:12 Dose: 60 mg Hold Vancomycin For (Level >20) 0 each FS .AT DIALYSIS [facility] Ondansetron HCl (Zofran) 4 mg IVP Q6H PRN PRN Reason: Nausea/Vomiting Sevelamer Carbonate (Renvela) 800 mg PO TID[facility] Last Admin: 05/16/18 12:27 Dose: 800 mg Sodium Chloride (Flush - Normal Saline) 10 ml IVF Q12HR [facility] Sodium Chloride (Flush - Normal Saline) 10 ml IVF PRN PRN PRN Reason: Saline Flush Sodium Polystyrene Sulfonate (Kayexelate Oral Susp 15 Gm/60 Ml) 30 gm PO NOW [facility] Stop: 05/16/18 14:15 Last Admin: 05/16/18 12:13 Dose: 30 gm
[2018-05-16 16:47] LABS: Anion Gap 21 mmol/L (10-20); BUN (Urea Nitrogen) 18 mg/dL (8.9-20.6); Calc. Creatinine Clearance 24 mL/min (70-130); Calcium 10.6 mg/dL (7.8-10.44); Carbon Dioxide 25 mmol/L (22-29); Chloride 96 mmol/L (98-107); Estimated GFR-MDRD 10; Glucose 90 mg/dL (70-105); Potassium 5.7 mmol/L (3.5-5.1); Sodium 136 mmol/L (136-145)
[2018-05-16] MEDS: diphenhydrAMINE 25 MG CAP PO PRN (18:16)
[2018-05-17] MEDS: diphenhydrAMINE 25 MG CAP PO PRN ×2 (01:37→15:33)
[2018-05-17] MEDS ORDERED: Hydrocortisone 1% Cream 30 GM TUBE TOP PRN (04:24)
[2018-05-17] MEDS: Sevelamer Carbonate 800 MG TAB PO SCH ×4 (08:56→19:32)
[2018-05-17] MEDS: Cyanocobalamin (Vitamin B-12) 1,000 MCG TAB PO SCH (08:56)
[2018-05-17] MEDS: hydrALAZINE 10 MG TAB PO SCH ×3 (08:56→21:43)
[2018-05-17] MEDS: Metoprolol Tartrate 50 MG TAB PO SCH ×2 (08:57→21:43)
[2018-05-17] MEDS: NIFEdipine XL 60 MG TAB PO SCH ×2 (08:57→21:44)
[2018-05-17 10:07] LABS: Anion Gap 20 mmol/L (10-20); BUN (Urea Nitrogen) 30 mg/dL (8.9-20.6); Calc. Creatinine Clearance 18 mL/min (70-130); Calcium 10.9 mg/dL (7.8-10.44); Carbon Dioxide 26 mmol/L (22-29); Chloride 94 mmol/L (98-107); Estimated GFR-MDRD 7; Glucose 98 mg/dL (70-105); Sodium 135 mmol/L (136-145)
--- NOTE | 2018-05-17 12:49 | PRG ---
DATE OF SERVICE: 05/17/2018 SUBJECTIVE: Patient was seen and examined at bedside and overnight events noted. Patient denies any shortness of breath or chest pain or palpitation. No history of nausea or vomiting or diarrhea or fever or chills or cramps. OBJECTIVE: GENERAL: This is an obese male, in no apparent distress. VITAL SIGNS: Temperature 98.2, pulse 80, respiratory rate 14, blood pressure 144/82. HEENT: Atraumatic, normocephalic. Oral mucosa is moist. NECK: Supple CARDIOVASCULAR: S1, S2 heard. Rate and rhythm regular. RESPIRATORY: Clear to auscultation. GASTROINTESTINAL: Abdomen is soft. MUSCULOSKELETAL: No tenderness. No edema. DERMATOLOGIC: No skin rash. NEUROLOGIC: Alert and awake and oriented x3. No focal neurologic deficits. Moving all the extremit ies. PSYCHIATRIC: Mood and affect normal. LABORATORY DATA: Potassium is 5.0, BUN 30, creatinine 7.7. ASSESSMENT AND PLAN: 1. End-stage renal disease. We will continue on dialysis Friday, Friday, and Friday. No dialysi s today. Potassium is better. 2. Severe hyperkalemia, better with dialysis. The patient is noncompliant with a low potassium diet at the hospital with nursing staff. The patient was counseled again to be compliant with the diet r estriction to avoid frequent admissions and from the complications due to severe hyperkalemia. 3. Edema, controlled. 4. Hypertension. 5. Anemia, chronic and stable. 6. Obesity. The patient was counseled again to limit potassium in the diet. We will continue on low potassium di et. Plan discussed with Dr. Allred from hospitalist service and will follow. No dialysis today. Plan to dialysis tomorrow.
[2018-05-17] MEDS ORDERED: Heparin 1,000 UNITS/ML VIAL ONE (18:38)
[2018-05-17] MEDS: HYDROcodone/Acetaminophen 5/325 mg Tablet PO PRN (21:42)
--- NOTE | 2018-05-17 22:22 | PDOC.PN ---
- Subjective Encounter Start Date: 05/17/18 Encounter Start Time: 12:30 Patient seen and examined for hyperkalemia/?bacteremia. No new complaints. No overnight events - Objective MAR Reviewed: Yes Vital Signs & Weight: Vital Signs (12 hours) Temp Pulse Resp BP BP Pulse Ox 05/17/18 21:44 89 190/108 H 05/17/18 21:43 89 05/17/18 16:19 98 05/17/18 16:00 98.3 F 81 16 157/104 H 98 05/17/18 15:33 89 145/82 H 05/17/18 12:06 94 L 05/17/18 11:36 98.2 F 89 14 145/82 H 94 L Weight Weight 264 lb 14.4 oz I&O: 05/16/18 05/17/18 05/18/18 06:59 06:59 06:59 Intake Total 1140 600 Output Total 0 Balance 1140 600 Result Diagrams: 05/16/18 05:28 05/17/18 09:40 EKG Reviewed by me: Yes (Tele SR) Phys Exam - Physical Examination Constitutional: NAD Respiratory: no wheezing, no rhonchi Cardiovascular: RRR, no rub Gastrointestinal: soft, non-tender, positive bowel sounds Musculoskeletal: no edema Dx/Plan (1) Bacteremia Code(s): R78.81 - BACTEREMIA Status: Acute Comment: one culture +ve for G+ cocci, on vancomycin. Echo neg for vegetations 11/09 (2) Hyperkalemia Code(s): E87.5 - HYPERKALEMIA Status: Acute Comment: prob due to diet noncompliance (3) Anemia of renal disease Code(s): D63.1 - ANEMIA IN CHRONIC KIDNEY DISEASE Status: Chronic (4) ESRD (end stage renal disease) on dialysis Code(s): N18.6 - END STAGE RENAL DISEASE; Z99.2 - DEPENDENCE ON RENAL DIALYSIS Status: Chronic Comment: Dialysis per nephrology service (5) GERD (gastroesophageal reflux disease) Code(s): K21.9 - GASTRO-ESOPHAGEAL REFLUX DISEASE WITHOUT ESOPHAGITIS Status: Chronic (6) Hypertension Code(s): I10 - ESSENTIAL (PRIMARY) HYPERTENSION Status: Chronic (7) Obesity (BMI 30.0-34.9) Code(s): E66.9 - OBESITY, UNSPECIFIED Status: Chronic - Plan continue antibiotics, DVT proph w/SCDs Cont Vancomycin -: Cont low potassium diet -: Dialysis per Nephro -: Continue current HTN meds Review of Systems - Review of Systems Respiratory: negative: Cough, Dry, Shortness of Breath, Hemoptysis, SOB with Excertion, Pleuritic Pain, Sputum, Wheezing Cardiovascular: negative: chest pain, palpitations, orthopnea, paroxysmal nocturnal dyspnea, edema, light headedness, other - Medications/Allergies Allergies/Adverse Reactions: Allergies Allergy/AdvReac Type Severity Reaction Status Date / Time loracarbef [From Lorabid] Allergy Severe Verified 11/09/17 16:11 Medications: Current Medications Acetaminophen (Tylenol) 650 mg PO Q4H PRN PRN Reason: Headache/Fever or Pain Hydrocodone Bitart/Acetaminophen ([place] 5/325) 1 tab PO Q6H PRN PRN Reason: Moderate Pain (4-6) Last Admin: 05/17/18 21:42 Dose: 1 tab Cyanocobalamin (Vitamin B-12) 2,000 mcg PO DAILY [facility] Last Admin: 05/17/18 08:56 Dose: 2,000 mcg Diphenhydramine HCl (Benadryl) 25 mg PO Q6H PRN PRN Reason: .ITCHING Last Admin: 05/17/18 15:33 Dose: 25 mg Hydralazine HCl (Apresoline) 30 mg PO TID [facility] Last Admin: 05/17/18 21:43 Dose: 30 mg Hydrocortisone/Aloe (Hydrocortisone 1% Cream) 0 gm TOP Q4H PRN PRN Reason: .ITCHING Last Admin: 05/17/18 04:36 Dose: 1 applic Vancomycin HCl 1.5 gm/ Sodium (Chloride) 300 mls @ 200 mls/hr IVPB WILLCALL ALANNA Vancomycin HCl 1.25 gm/ Sodium (Chloride) 250 mls @ 166.667 mls/hr IVPB [facility]CALL [facility]ANNA Vancomycin HCl 1 gm/ Device 200 mls @ 200 mls/hr IVPB [facility]CALL [facility]ANNA Vancomycin HCl 750 mg/ Sodium (Chloride) 250 mls @ 250 mls/hr IVPB [facility]CALL [facility]ANNA Metoprolol Tartrate (Lopressor) 75 mg PO BID [facility] Last Admin: 05/17/18 21:43 Dose: 75 mg Miscellaneous Medication (Pharmacy To Dose) 0 each IVPB ASDIR ALANNA Nifedipine (Procardia Xl) 60 mg PO BID [facility] Last Admin: 05/17/18 21:44 Dose: 60 mg Hold Vancomycin For (Level >20) 0 each FS .AT DIALYSIS [facility] Ondansetron HCl (Zofran) 4 mg IVP Q6H PRN PRN Reason: Nausea/Vomiting Sevelamer Carbonate (Renvela) 2,400 mg PO TID-WM [facility] Last Admin: 05/17/18 19:32 Dose: 2,400 mg Sodium Chloride (Flush - Normal Saline) 10 ml IVF Q12HR [facility] Last Admin: 05/17/18 21:44 Dose: 10 ml Sodium Chloride (Flush - Normal Saline) 10 ml IVF PRN PRN PRN Reason: Saline Flush
[2018-05-17] MEDS ORDERED: hydrALAZINE 20 MG/ML VIAL SLOW IVP PRN (22:26)
[2018-05-18] MEDS: diphenhydrAMINE 25 MG CAP PO PRN (05:43)
[2018-05-18 05:58] LABS: Potassium 5.4 mmol/L (3.5-5.1)
[2018-05-18 08:46] LABS: Vancomycin, Random 17.2 ug/mL (See Comment)
[2018-05-18] MEDS ORDERED: diphenhydrAMINE 50 MG/ML VIAL IVP SCH (09:45)
--- NOTE | 2018-05-18 09:46 | PRG ---
DATE OF SERVICE: 05/18/2018 NEPHROLOGY PROGRESS NOTE SUBJECTIVE: Patient was seen and examined at bedside and overnight events noted. Patient denies any shortness of breath or chest pain or palpitation. No history of nausea or vomiting or diarrhea or f ever or chills or cramps. OBJECTIVE: GENERAL: This is an obese male in no apparent distress. VITAL SIGNS: Temperature 98.6, pulse 89, respiratory rate 18, blood pressure 181/109. HEENT: Atraumatic, normocephalic. Oral mucosa is moist. NECK: Supple. CARDIOVASCULAR: S1, S2 heard. Rate and rhythm regular. RESPIRATORY: Clear to auscultation. GASTROINTESTINAL: Abdomen is soft. MUSCULOSKELETAL: No tenderness. No edema. DERMATOLOGIC: No skin rash. NEUROLOGIC: Alert and awake and oriented x3. No focal neurologic deficits. Moving all the extremiti es. PSYCHIATRIC: Mood and affect normal. LABORATORY DATA: Potassium is 5.4 today. ASSESSMENT AND PLAN: 1. End-stage renal disease. We will have dialysis Friday, Friday and Friday. 2. Hyperkalemia. The patient is noncompliant with diet. Patient was counseled again today. Patien t wants to cut short the dialysis to 3 hours. 3. Edema, controlled. 4. Hypertension. 5. Anemia. 6. Obesity. 7. Dialysis catheter infection. Plan is to have vancomycin for now. We will monitor.
[2018-05-18] MEDS ORDERED: Heparin 10,000 UNITS/ 10 ML VIAL ONE (10:00)
[2018-05-18] MEDS: Sevelamer Carbonate 800 MG TAB PO SCH ×3 (11:41→16:14)
[2018-05-18] MEDS: Cyanocobalamin (Vitamin B-12) 1,000 MCG TAB PO SCH (11:46)
[2018-05-18] MEDS: hydrALAZINE 10 MG TAB PO SCH ×2 (11:46→16:14)
[2018-05-18] MEDS: NIFEdipine XL 60 MG TAB PO SCH (11:47)
[2018-05-18] MEDS: Metoprolol Tartrate 50 MG TAB PO SCH (11:48)
[2018-05-18 16:39] VITALS: BP 155/98; TEMP 98.6
== END 2018-05-18 18:10 | disposition home or self-care (01) | DRG 640 ==
LOC: ERS 01:07 → 2SE 04:36
PROVIDERS: ADMIT Hospitalist; ATTEND Hospitalist
DX: E87.5 Hyperkalemia (principal); N18.6 End stage renal disease; T82.41XA Breakdown (mechanical) of vascular dialysis catheter, initial encounter; I12.0 Hypertensive chronic kidney disease with stage 5 chronic kidney disease or end stage renal disease; I42.9 Cardiomyopathy, unspecified; Z94.0 Kidney transplant status; Z99.2 Dependence on renal dialysis; G43.909 Migraine, unspecified, not intractable, without status migrainosus; D63.1 Anemia in chronic kidney disease; E66.9 Obesity, unspecified; Z68.34 Body mass index [BMI] 34.0-34.9, adult; M54.9 Dorsalgia, unspecified; I16.0 Hypertensive urgency; E87.6 Hypokalemia; K21.9 Gastro-esophageal reflux disease without esophagitis; B95.62 Methicillin resistant Staphylococcus aureus infection as the cause of diseases classified elsewhere
CPT/HCPCS: 36415; 36416; 71045; 80048; 80202; 84132; 85025; 87040; 87070; 87077; 87081; 87149; 87186; 87205; 93005; 96374; 96375; A4216; J0360; J1200; J1644; J1650; J1815; J2270; J3370; J7050; Q0162

== ENCOUNTER 2018-05-25 11:00 | Emergency (ER) | payer OTHER ==
[2018-05-25] MEDS ORDERED: HYDROcodone/Acetaminophen 10/325 mg Tablet ONE (12:07)
== END 2018-05-25 12:38 | disposition home or self-care (01) ==
LOC: ERS 11:00
DX: M54.5 Low back pain (principal); I12.9 Hypertensive chronic kidney disease with stage 1 through stage 4 chronic kidney disease, or unspecified chronic kidney disease; N18.9 Chronic kidney disease, unspecified; Z99.2 Dependence on renal dialysis; Z79.899 Other long term (current) drug therapy
CPT/HCPCS: 80202; 99283

== ENCOUNTER 2018-06-08 07:21 | Inpatient (IN) | payer OTHER ==
[2018-06-08] MEDS ORDERED: Acetaminophen 500 MG TAB ONE ×2 (07:42→14:28)
[2018-06-08 08:07] LABS: #Eosinphils 0.3 thou/uL (0.0-0.7); #Lymphocytes 1.1 thou/uL (1.20-3.40); #Neutrophils 9.7 thou/uL (1.40-6.50); %Basophils 0.2 % (0.0-1.0); %Eosinophils 2.8 % (0.0-10.0); %Lymphocytes 9.4 % (21.0-51.0); %Monocytes 8.4 % (0.0-10.0); %Neutrophils 79.3 % (42.0-75.0); Hemoglobin 11.1 g/dL (14.0-18.0); Mean Corpuscular HGB CONC 33.3 g/dL (32.0-36.0); Mean Corpuscular Hemoglobin 30.1 pg (27.0-31.0); Mean Corpuscular Volume 90.4 fL (78.0-98.0); Mean Platelet Volume 8.4 fL (7.4-10.4); Platelet Count 209 thou/uL (130-400); RBC Distribution Width 16.5 % (11.5-14.5); White Blood Cell (WBC) Count 12.2 thou/uL (4.8-10.8)
[2018-06-08] MEDS ORDERED: Ketorolac Tromethamine 30 MG/ML VIAL ONE (08:16)
[2018-06-08 08:27] LABS: ALT (SGPT) 7 U/L (8-55); AST (SGOT) 14 U/L (5-34); Albumin 4.5 g/dL (3.5-5.0); Alkaline Phosphatase 89 U/L (40-150); Anion Gap 23 mmol/L (10-20); BUN (Urea Nitrogen) 50 mg/dL (8.9-20.6); Bilirubin, Total 0.5 mg/dL (0.2-1.2); CK (CPK) 72 U/L (30-200); Calc. Creatinine Clearance 0 mL/min (70-130); Calcium 9.6 mg/dL (7.8-10.44); Carbon Dioxide 23 mmol/L (22-29); Chloride 97 mmol/L (98-107); Estimated GFR-MDRD 5; Globulin 3.6 g/dL (2.4-3.5); Glucose 87 mg/dL (70-105); Protein, Total 8.1 g/dL (6.0-8.3); Sodium 136 mmol/L (136-145)
--- NOTE | 2018-06-08 08:30 | RAD ---
SINGLE VIEW OF CHEST: Date: 05/15/18 HISTORY: Shortness of breath and body aches. Fever. FINDINGS: Single view of the chest shows an enlarged but stable cardiomediastinal silhouette. The dialysis cath eter is unchanged in position. There is no evidence of consolidation, mass, or pleural effusion. IMPRESSION: Cardiomegaly without evidence of acute cardiopulmonary disease. POS: [facility]
[2018-06-08 08:32] LABS: Potassium 6.6 mmol/L (3.5-5.1)
[2018-06-08] MEDS ORDERED: Calcium Gluc 4.6 MEQ/10 ML (100 MG/ML) ONE (08:36)
[2018-06-08] MEDS ORDERED: Sodium Chloride 0.9% 100 ML ONE (08:36)
[2018-06-08] MEDS ORDERED: Dextrose 50% Abboject 50 ML SYRINGE ONE ×2 (08:50→12:02)
[2018-06-08] MEDS ORDERED: Insulin Regular 300 UNITS/3 ML VIAL ONE (08:50)
[2018-06-08] MEDS ORDERED: Albuterol Sulfate 2.5 mg/3 ml Neb ONE (09:19)
[2018-06-08] MEDS ORDERED: Albuterol Sulfate 2.5 mg/0.5 ml Neb ONE (09:19)
[2018-06-08] MEDS ORDERED: Vancomycin HCl 1 GM in Premix Bag 1 BAG IVPB SCH ×2 (11:15→17:45)
--- NOTE | 2018-06-08 11:25 | CON ---
DATE OF CONSULTATION: 06/08/2018 REASON FOR CONSULTATION: Hyperkalemia. HISTORY OF PRESENT ILLNESS: This very pleasant 23-year-old gentleman who presented to the hospital with bodyaches and shortness of breath. The patient has gained more than 6 kilos and was noted to have a potassium of 6.6. The patient also had low grade fever and chills. PAST MEDICAL HISTORY: Significant for kidney disease, hypertension, anemia, history of failed renal transplant, hyperkalemia, anemia, history of multiple AV fistula surgery, history of multiple tunneled dialysis catheter. SOCIAL HISTORY: No alcohol or drugs. FAMILY HISTORY: Negative for ESRD. ALLERGIES: Reviewed. HOME MEDICATIONS: List reviewed. REVIEW OF SYSTEMS: Fifteen-point review of systems was performed and negative except for positives noted above. GENERAL: Weakness- HEAD: Headache- NECK: No swelling or lumps. NOSE: No epistaxis or discharge. EYES: No diplopia or pain. RESPIRATORY: Dyspnea- CARDIOVASCULAR: Chest pain- GASTROINTESTINAL: Nausea- /[employer] PROFESSOR: Hematuria- MUSCULOSKELETAL: No joint pain. NEUROPSYCHIATRIC SYSTEMS: No suicidal ideation. No ideation. SKIN: Denies any rash or ulcer. CONSTITUTIONAL: No fever or chills. PHYSICAL EXAMINATION: GENERAL: Patient is awake, alert. VITAL SIGNS: Afebrile, pulse 75, breathing at 16, blood pressure was 174/100. OBJECTIVE: See above. Awake, alert, in no acute distress. GENERAL APPEARANCE AND MENTAL STATUS: Fair. HEAD/NECK: Normocephalic. Atraumatic. EYES: EOMI. No deformity. EARS: Clear. No ulcers. NOSE: Intact. No lesions. MOUTH: Clear. No discharge. THROAT: Clear. No exudate. LUNGS: Clear. No crackles. CARDIAC: S1, S2. No rub. ABDOMEN: Benign. BS+. GENITALIA/RECTUM: Pimentel absent. BACK/EXTREMITIES: Tunnel catheter site shows drainage. NEUROLOGICAL: Alert and motor intact. SKIN: Rash- Bruise- LYMPHATICS: Edema- Ulcer- LABORATORY: Potassium 6.6, hemoglobin 11.1. WBC 12.2. ASSESSMENT AND RECOMMENDATIONS: 1. Stage 6 chronic kidney disease. We will plan dialysis. 2. Hyperkalemia. Plan dialysis. 3. Line sepsis. We will draw blood cultures and start vancomycin. We will treat based on cultures. 4. Medications based on glomerular filtration rate are appropriate 5. Anemia, stable. 6. Hypertension, plan ultrafiltration. 7. Congestive heart failure, plan ultrafiltration. I again discussed compliance with fluid and potassium intake. MTDD
[2018-06-08 11:27] LABS: Vancomycin, Random Less than 1.1 ug/mL (See Comment)
[2018-06-08 12:20] LABS: HBSAg Index 0.16 S/CO (0-0.99); Hep B Surf Ag Non-Reactive S/CO (NonReactive)
[2018-06-08] MEDS ORDERED: cloNIDine 0.1 MG TAB ONE (14:04)
[2018-06-08 15:33] LABS: #Eosinphils 0.1 thou/uL (0.0-0.7); #Lymphocytes 0.9 thou/uL (1.20-3.40); #Monocytes 1.9 thou/uL (0.11-0.59); #Neutrophils 14.1 thou/uL (1.40-6.50); %Basophils 0.3 % (0.0-1.0); %Eosinophils 0.4 % (0.0-10.0); %Lymphocytes 5.2 % (21.0-51.0); %Monocytes 11.1 % (0.0-10.0); %Neutrophils 83.1 % (42.0-75.0); Hemoglobin 12.1 g/dL (14.0-18.0); Mean Corpuscular HGB CONC 34.5 g/dL (32.0-36.0); Mean Corpuscular Hemoglobin 30.8 pg (27.0-31.0); Mean Corpuscular Volume 89.3 fL (78.0-98.0); Mean Platelet Volume 8.2 fL (7.4-10.4); Platelet Count 178 thou/uL (130-400); RBC Distribution Width 16.4 % (11.5-14.5); Red Blood Cell (RBC) Count 3.94 mill/uL (4.70-6.10)
[2018-06-08] MEDS ORDERED: Ondansetron HCl/PF 4 MG/2 ML Vial ONE (15:45)
[2018-06-08 15:51] LABS: ALT (SGPT) Less than 7 U/L (8-55); AST (SGOT) 13 U/L (5-34); Albumin 4.7 g/dL (3.5-5.0); Alkaline Phosphatase 92 U/L (40-150); Anion Gap 18 mmol/L (10-20); BUN (Urea Nitrogen) 27 mg/dL (8.9-20.6); Bilirubin, Total 0.8 mg/dL (0.2-1.2); CK (CPK) 68 U/L (30-200); Calc. Creatinine Clearance 0 mL/min (70-130); Calcium 9.7 mg/dL (7.8-10.44); Carbon Dioxide 23 mmol/L (22-29); Chloride 97 mmol/L (98-107); Estimated GFR-MDRD 8; Globulin 3.7 g/dL (2.4-3.5); Glucose 88 mg/dL (70-105); Potassium 4.3 mmol/L (3.5-5.1); Protein, Total 8.4 g/dL (6.0-8.3); Sodium 134 mmol/L (136-145)
[2018-06-08 15:58] LABS: CKMB 0.2 ng/mL (0-6.6); Troponin I Less than 0.010 ng/mL (< 0.028)
[2018-06-08] MEDS ORDERED: Senokot 8.6 MG TAB PO PRN (15:58)
[2018-06-08] MEDS ORDERED: Benzonatate 100 MG CAP PO PRN (15:58)
[2018-06-08] MEDS ORDERED: Calcium Carbonate 500 MG ChewTAB PO PRN (15:58)
[2018-06-08] MEDS ORDERED: traMADol HCl 50 MG TAB PO PRN (15:58)
[2018-06-08] MEDS ORDERED: hydrALAZINE 20 MG/ML VIAL SLOW IVP PRN (15:58)
[2018-06-08] MEDS ORDERED: Loratadine 10 MG TAB PO PRN (15:58)
[2018-06-08] MEDS ORDERED: Nitroglycerin 0.4 MG TAB (25 Tab Bottle) SL PRN (15:58)
[2018-06-08] MEDS ORDERED: Bisacodyl 5 MG TAB PO PRN (15:58)
[2018-06-08] MEDS ORDERED: Mag-Al 1200 mg/1200 mg/30 ML UDCUP PO PRN (15:58)
[2018-06-08] MEDS ORDERED: Lorazepam 1 MG TAB PO PRN (15:58)
[2018-06-08] MEDS ORDERED: cloNIDine 0.1 MG TAB PO PRN (15:58)
[2018-06-08] MEDS ORDERED: Ondansetron HCl/PF 4 MG/2 ML Vial IVP PRN (15:58)
[2018-06-08] MEDS ORDERED: Diabetic Tussin 200 MG/10 ML UDCUP PO PRN (15:58)
[2018-06-08] MEDS ORDERED: Vancomycin HCl 500 MG in Sodium Chloride 0.9% 100 ML IVPB SCH (16:15)
[2018-06-08] MEDS ORDERED: VANCOMYCIN IVPB PRN (16:51)
[2018-06-08] MEDS ORDERED: LEVAQUIN IVPB PRN (16:51)
--- NOTE | 2018-06-08 16:53 | HP ---
DATE OF ADMISSION: 06/08/2018 PRIMARY CARE PHYSICIAN: Enoch Zeng M.D. CHIEF COMPLAINT: Not feeling well and fever. HISTORY OF PRESENT ILLNESS: Mr. Martínez is an unfortunate 23-year-old male with history of end-stage re nal disease with failed renal transplant and currently on dialysis, who presented as "code green" [facility] hemod[facility] to the ER. History is mainly obtained by the chart review as the patient is feel ing rather poorly at this time and is not able to talk much. He is very nauseated and would rather s tiffany still and not talk. Mr. Martínez was recently admitted to our facility about 2-3 weeks ago from 05/15/2018-05/18/2018. At th at time, he was admitted for generalized weakness and was found to have MRSA infection around his cat heter site of hemodialysis. He was discharged on vancomycin at that time. At that time, blood cultu res grew 1 out of 2 micrococcus. The patient reports that he has gotten only one dose of vancomycin since then, but I am not sure if this is the truth or not. Nevertheless, the patient was getting juancarlos lyzed today and was noticed to have a low-grade fever at home. His fever went up even further for di alysis and he had a code green for feeling short of breath and having some chest pain and was transfe rred to the ER. Upon presentation to the ER, his oxygen saturation was 95% on room air. His blood pressure was eleva lou 205/126. His temperature highest has been 101.8 in the emergency room. He has been given empiri c IV antibiotic. Blood cultures and line cultures are obtained. He has undergone dialysis by Dr. Jason mercedes as his potassium was 6.6 and BUN and creatinine were quite elevated. He is now being admitted for sepsis. The patient also reports some abdominal pain and loose stools for about 1 week. Abdominal pain start ed yesterday. He had one episode of vomiting prior to dialysis today and has been feeling nauseated since then. He also reports some chest tightness associated with some shortness of breath today. In the emergency room, he has undergone a chest x-ray which does not show any acute infiltrate or pulmo nary edema. PAST MEDICAL HISTORY: 1. History of left ventricular hypertrophy. 2. History of end-stage renal disease secondary to Goodpasture. 3. History of failed renal transplant. 4. Hypertension. 5. Anemia of chronic kidney disease. 6. Secondary hyperparathyroidism of renal origin. 7. Gastroesophageal reflux disease. PAST SURGICAL HISTORY: 1. Multiple dialysis access. 2. Renal transplant in 2012 with gradual rejection and failure. PSYCHIATRIC HISTORY: Anxiety and depression. ALLERGIES: HYDROCODONE and LORABID. CURRENT HOME MEDICATIONS: As per the ER records, he does on following medications, metoprolol tartra te 150 mg daily, nifedipine 60 mg b.i.d., Renvela 800 t.i.d., hydralazine 30 mg 3 times a day, B12 da skip, tramadol as needed, Valium as needed. FAMILY HISTORY: Hypertension and renal disease runs among several family members. REVIEW OF SYSTEMS: A 12-point review of systems was done which is negative except for those mentione d in the history and physical. SOCIAL HISTORY: He currently lives at home. No history of drug, tobacco or alcohol abuse. LABORATORY DATA: CBC shows WBCs at 17.0, which was 7.8 on 05/16/2018; hemoglobin 11.1; neutrophils 8 3.1%. Serum chemistries prior to dialysis, sodium 136, potassium 6.6, chloride 97, anion gap 23, bic arbonate 23, BUN 50, creatinine 14.99. Lactic acid normal at 1.4, blood sugar 87. Cardiac enzymes n ormal. Chest x-ray by my review has no evidence to suggest pleural effusion or edema. Cardiomegaly noticed. PHYSICAL EXAMINATION: VITAL SIGNS: Upon presentation, blood pressure 205/126, pulse of 91, respirations 18, saturating 95% on room air, T-max 101.3. GENERAL: He is very uncomfortable and nauseated at this time. He keeps his eyes closed and looks si ck. HEENT: Mucous membrane is moist and pink. No oropharyngeal exudate or erythema. Head is normocepha lic, atraumatic. Pupils equal, reactive to light and accommodation. NECK: Supple without any lymphadenopathy, JVD or bruit. CHEST: Evaluation shows clear to auscultation with some coarse breath sounds at bases. He has hemod ialysis catheter in the left anterior chest which has some discharge which looks serous in nature corina und it. CARDIOVASCULAR: Rhythm is regular, but he is tachycardic. No specific murmurs auscultated. ABDOMEN: Soft, nontender, nondistended, positive bowel sounds, no hepatosplenomegaly. EXTREMITIES: Free of any cyanosis, clubbing, or edema. NEUROLOGIC: Nonfocal. SKIN: Free of any rashes or bruises. I feel warm and dry to the touch. PSYCHIATRIC: Anxiety noticed. IMPRESSION AND PLAN: 1. Sepsis. Though the source is unclear at this time, but most likely he has a line sepsis. I am n ot sure if he received a full course of vancomycin for his past infection of MRSA and his central lef t internal jugular vein that was done on 05/15/2018. He had repeat blood cultures at the same time w [facility] were negative. Blood cultures have been obtained through the line as well as peripheral IV. At this time, we will treat him with broad spectrum empiric IV antibiotics, namely vancomycin and Zosyn and consult Infectious Disease, Dr. Grayson. Also order stool studies given his gastrointestinal symp toms and recent exposure to antibiotics. Check a Clostridium difficile as well. Also, if necessary, we will obtain a CT scan of his chest without contrast given his complaints of some shortness of delisa ath and chest tightness, even though the symptoms are more consistent with fluid overload than an inf ection. We will add supportive care for now. 2. Acute on chronic renal failure. He has received hemodialysis emergently today and has significan t improvement in his electrolytes. Nephrology has been consulted and we appreciate their input. 3. Hypertensive urgency. We will reconsult home medications until then start him on p.r.n. antihype rtensives. 4. End-stage renal disease. Continue hemodialysis while in the hospital. Nephrology has been consu lted for the same. Monitor renal function on a daily basis. Restart his Renvela and start him on a renal diet. 5. Anemia of chronic kidney disease, stable at this time. 6. Deep venous thrombosis and gastrointestinal prophylaxis. DISPOSITION: Mr. Martínez is currently being admitted to the hospital for sepsis, likely line sepsis. F urther management will depend upon his clinical course. Estimated length of stay at this time is 2-3 midnights.
[2018-06-08] MEDS ORDERED: Piperacillin/Tazobactam 2.25 GM in Sodium Chloride 0.9% 100 ML IVPB SCH (17:00)
[2018-06-08] MEDS ORDERED: Vancomycin HCl 1.25 GM in Sodium Chloride 0.9% 250 ML 250 ML IVPB SCH (17:30)
[2018-06-08] MEDS ORDERED: Vancomycin HCl 1.5 GM in Sodium Chloride 0.9% 250 ML 300 ML IVPB SCH (17:30)
[2018-06-08] MEDS ORDERED: Vancomycin HCl 750 MG in Sodium Chloride 0.9% 250 ML 250 ML IVPB SCH (17:30)
[2018-06-08] MEDS ORDERED: HOLD VANCOMYCIN FOR LEVEL >20 FS SCH (17:30)
[2018-06-08] MEDS: Sevelamer Carbonate 800 MG TAB PO SCH (17:36)
[2018-06-08 17:45] VITALS: BMI 35.4
[2018-06-08] MEDS ORDERED: Piperacillin/Tazobactam 3.375 GM in Sodium Chloride 0.9% 100 ML IVPB SCH (18:00)
[2018-06-08] MEDS: Heparin 5,000 UNITS/ML VIAL SC SCH (21:20)
[2018-06-08] MEDS: HYDROcodone/Acetaminophen 5/325 mg Tablet PO PRN (21:20)
[2018-06-08] MEDS: NIFEdipine XL 60 MG TAB PO SCH (21:21)
[2018-06-08] MEDS: Famotidine 20 MG TAB PO SCH (21:41)
[2018-06-08] MEDS: hydrALAZINE 10 MG TAB PO SCH (21:41)
[2018-06-08] MEDS: Acetaminophen 325 MG TAB PO PRN (22:53)
[2018-06-08] MEDS: Ondansetron HCl/PF 4 MG/2 ML Vial IVP PRN (23:50)
[2018-06-09 07:13] LABS: #Lymphocytes 0.9 thou/uL (1.20-3.40); #Monocytes 1.5 thou/uL (0.11-0.59); #Neutrophils 12.1 thou/uL (1.40-6.50); %Basophils 0.2 % (0.0-1.0); %Lymphocytes 6.3 % (21.0-51.0); %Monocytes 10.5 % (0.0-10.0); Hemoglobin 11.7 g/dL (14.0-18.0); Mean Corpuscular HGB CONC 33.4 g/dL (32.0-36.0); Mean Corpuscular Hemoglobin 30.3 pg (27.0-31.0); Mean Corpuscular Volume 90.7 fL (78.0-98.0); Mean Platelet Volume 8.5 fL (7.4-10.4); Platelet Count 163 thou/uL (130-400); RBC Distribution Width 16.6 % (11.5-14.5); Red Blood Cell (RBC) Count 3.86 mill/uL (4.70-6.10); White Blood Cell (WBC) Count 14.5 thou/uL (4.8-10.8)
[2018-06-09 07:38] LABS: ALT (SGPT) 7 U/L (8-55); AST (SGOT) 11 U/L (5-34); Albumin 4.5 g/dL (3.5-5.0); Alkaline Phosphatase 79 U/L (40-150); Anion Gap 19 mmol/L (10-20); BUN (Urea Nitrogen) 38 mg/dL (8.9-20.6); Bilirubin, Total 0.6 mg/dL (0.2-1.2); Calc. Creatinine Clearance 15 mL/min (70-130); Calcium 9.6 mg/dL (7.8-10.44); Carbon Dioxide 25 mmol/L (22-29); Chloride 92 mmol/L (98-107); Estimated GFR-MDRD 6; Globulin 3.8 g/dL (2.4-3.5); Glucose 95 mg/dL (70-105); Potassium 6.1 mmol/L (3.5-5.1); Protein, Total 8.3 g/dL (6.0-8.3); Sodium 130 mmol/L (136-145)
[2018-06-09] MEDS ORDERED: FERRIC CITRATE 630 MG PO SCH (08:00)
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
[2018-06-09] MEDS: Sevelamer Carbonate 800 MG TAB PO SCH ×3 (09:13→17:59)
[2018-06-09] MEDS: Heparin 5,000 UNITS/ML VIAL SC SCH ×2 (09:15→21:52)
[2018-06-09] MEDS: Cyanocobalamin (Vitamin B-12) 1,000 MCG TAB PO SCH (09:15)
[2018-06-09] MEDS: hydrALAZINE 10 MG TAB PO SCH ×3 (09:15→21:52)
[2018-06-09] MEDS: Metoprolol Tartrate 100 MG TAB PO SCH (09:16)
[2018-06-09] MEDS: Acetaminophen 325 MG TAB PO PRN ×3 (09:17→21:52)
[2018-06-09] MEDS: NIFEdipine XL 60 MG TAB PO SCH ×2 (09:17→21:52)
[2018-06-09] MEDS: Ondansetron HCl/PF 4 MG/2 ML Vial IVP PRN (09:18)
[2018-06-09] MEDS: Lorazepam 1 MG TAB PO PRN (10:19)
--- NOTE | 2018-06-09 10:35 | PRG ---
DATE OF SERVICE: 06/09/2018 SUBJECTIVE: This is a 23-year-old gentleman being seen for end-stage renal disease. The patient den ies any nausea, vomiting or chest pain. PHYSICAL EXAMINATION: GENERAL: Patient is awake, alert. VITAL SIGNS: Afebrile, pulse 108, breathing 16, blood pressure 139/101. OBJECTIVE: See above. Awake, alert, in no acute distress. GENERAL APPEARANCE AND MENTAL STATUS: Fair. HEAD/NECK: Normocephalic. Atraumatic. EYES: EOMI. No deformity. EARS: Clear. No ulcers. NOSE: Intact. No lesions. MOUTH: Clear. No discharge. THROAT: Clear. No exudate. LUNGS: Clear. No crackles. CARDIAC: S1, S2. No rub. ABDOMEN: Benign. BS+. GENITALIA/RECTUM: Pimentel absent. BACK/EXTREMITIES: Edema 0+ Ulcer- NEUROLOGICAL: Alert and motor intact. SKIN: Rash- Bruise- LYMPHATICS: Edema- Ulcer- LABORATORY DATA: Show potassium 6.1. ASSESSMENT AND RECOMMENDATIONS: 1. Stage 6 chronic kidney disease, plan dialysis. 2. Hyperkalemia. Plan dialysis. 3. Line sepsis. We will do dialysis and consult Surgery for line change. Sepsis management per waldemar miller team.
[2018-06-09 13:21] LABS: CKMB 0.5 ng/mL (0-6.6); Troponin I Less than 0.010 ng/mL (< 0.028)
[2018-06-09 14:12] LABS: Anion Gap 18 mmol/L (10-20); BUN (Urea Nitrogen) 43 mg/dL (8.9-20.6); Calc. Creatinine Clearance 14 mL/min (70-130); Calcium 9.9 mg/dL (7.8-10.44); Carbon Dioxide 27 mmol/L (22-29); Chloride 91 mmol/L (98-107); Estimated GFR-MDRD 5; Glucose 90 mg/dL (70-105); Potassium 5.8 mmol/L (3.5-5.1); Sodium 130 mmol/L (136-145)
[2018-06-09] MEDS: HYDROcodone/Acetaminophen 5/325 mg Tablet PO PRN (15:39)
--- NOTE | 2018-06-09 15:44 | PDOC.PN ---
- Subjective Encounter Start Date: 06/09/18 Encounter Start Time: 15:43 Subjective: pt complaining of generalised pain and SOb/chest tightness - Objective MAR Reviewed: Yes Vital Signs & Weight: Vital Signs (12 hours) Temp Pulse Resp BP BP Pulse Ox 06/09/18 15:38 103 H 179/104 H 06/09/18 15:25 98.3 F 103 H 24 H 188/89 H 100 06/09/18 14:02 100.3 F H 91 18 141/88 H 100 06/09/18 12:20 100.3 F H 91 18 99 06/09/18 12:00 97 06/09/18 09:17 108 H 139/101 H 06/09/18 09:15 108 H 139/101 H 06/09/18 08:00 100.2 F H 108 H 20 97 06/09/18 06:00 99.9 F H 97 18 141/78 H 95 Weight Weight 265 lb Result Diagrams: 06/09/18 07:09 06/09/18 12:40 Additional Labs: Microbiology 06/08/18 15:49 Venous blood - Left Hand Blood Culture - Preliminary Gram Positive Cocci 06/08/18 15:19 Venous blood - Left Hand Blood Culture - Preliminary Specimen has been received and culture in progress. No Growth to date. 06/08/18 10:20 Dialysis - Left Internal Jugular Vein Bacterial Culture - Preliminary Staphylococcus aureus 06/08/18 10:20 Dialysis - Left Internal Jugular Vein Bacterial Culture - Preliminary 06/08/18 10:10 Dialysis - Left Internal Jugular Vein Blood Culture - Preliminary Gram Positive Cocci 06/08/18 10:00 Dialysis - Left Internal Jugular Vein Blood Culture - Preliminary Methicillin resistant S.aureus Laboratory Tests 06/08/18 06/08/18 06/09/18 07:55 15:19 07:09 WBC 12.2 H 17.0 H 14.5 H Phys Exam - Physical Examination uncomfortable,hyperventilating HEENT: PERRLA, moist MMs, sclera anicteric, oral pharynx no lesions Neck: no nodes, no JVD Respiratory: no wheezing, no rales, no rhonchi Cardiovascular: RRR, no significant murmur Gastrointestinal: soft, non-tender, no distention, positive bowel sounds Musculoskeletal: no edema, pulses present Neurological: non-focal, normal sensation, moves all 4 limbs Psychiatric: A&O x 3 Skin: no rash Dx/Plan (1) Sepsis Code(s): A41.9 - SEPSIS, UNSPECIFIED ORGANISM Status: Acute (2) Bacteremia due to methicillin resistant Staphylococcus aureus Code(s): R78.81 - BACTEREMIA Status: Acute (3) Hyperkalemia Code(s): E87.5 - HYPERKALEMIA Status: Acute (4) Anemia of renal disease Code(s): D63.1 - ANEMIA IN CHRONIC KIDNEY DISEASE Status: Chronic (5) ESRD (end stage renal disease) on dialysis Code(s): N18.6 - END STAGE RENAL DISEASE; Z99.2 - DEPENDENCE ON RENAL DIALYSIS Status: Chronic Comment: Dialysis per nephrology service (6) GERD (gastroesophageal reflux disease) Code(s): K21.9 - GASTRO-ESOPHAGEAL REFLUX DISEASE WITHOUT ESOPHAGITIS Status: Chronic (7) Obesity (BMI 30.0-34.9) Code(s): E66.9 - OBESITY, UNSPECIFIED Status: Chronic (8) Secondary hyperparathyroidism of renal origin Code(s): N25.81 - SECONDARY HYPERPARATHYROIDISM OF RENAL ORIGIN Status: Chronic - Plan continue antibiotics, respiratory therapy, incentive spirometry, DVT proph w/ SCDs Transfer to [facility].check cardiac enzymes -: check ECHO.last in 11/09 WNL w [facility] -: emergent HD. discussed w Nephrology -: high risk of decompensation -: am labs * . Review of Systems - Review of Systems Constitutional: chills, sweats, weakness, malaise. negative: fever, other Respiratory: Shortness of Breath, SOB with Excertion. negative: Cough, Dry, Hemoptysis, Pleuritic Pain, Sputum, Wheezing Cardiovascular: chest pain Gastrointestinal: negative: Nausea, Vomiting, Abdominal Pain, Diarrhea, Constipation, Melena, Hematochezia, Other Genitourinary: negative: Dysuria, Frequency, Incontinence, Hematuria, Retention , Other Musculoskeletal: Other. negative: Neck Pain, Shoulder Pain, Arm Pain, Back Pain , Hand Pain, Leg Pain, Foot Pain Skin: negative: Rash, Lesions, Ford, Bruising, Other Neurological: negative: Weakness, Numbness, Incoordination, Change in Speech, Confusion, Seizures, Other - Medications/Allergies Allergies/Adverse Reactions: Allergies Allergy/AdvReac Type Severity Reaction Status Date / Time loracarbef [From Lorabid] Allergy Severe Verified 06/08/18 17:14 Medications: Current Medications Acetaminophen (Tylenol) 650 mg PO Q4H PRN PRN Reason: Headache/Fever or Pain Last Admin: 06/09/18 09:17 Dose: 650 mg Hydrocodone Bitart/Acetaminophen ([place] 5/325) 1 tab PO Q4H PRN PRN Reason: Moderate Pain (4-6) Last Admin: 06/09/18 15:39 Dose: 1 tab Al Hydroxide/Mg Hydroxide (Maalox) 30 ml PO Q6H PRN PRN Reason: Heartburn or Indigestion Benzonatate (Tessalon) 100 mg PO Q4H PRN PRN Reason: Cough Bisacodyl (Dulcolax) 10 mg PO DAILYPRN PRN PRN Reason: Constipation Calcium Carbonate (Tums) 1,000 mg PO Q4H PRN PRN Reason: Heartburn or Indigestion Clonidine (Catapres) 0.1 mg PO Q4H PRN PRN Reason: Systolic BP > 160 Last Admin: 06/08/18 23:49 Dose: 0.1 mg Cyanocobalamin (Vitamin B-12) 2,000 mcg PO DAILY [facility] Last Admin: 06/09/18 09:15 Dose: 2,000 mcg Famotidine (Pepcid) 20 mg PO Q24HR [facility] Last Admin: 06/08/18 21:41 Dose: 20 mg Guaifenesin (Robitussin Sf) 200 mg PO Q4H PRN PRN Reason: Cough Heparin Sodium (Porcine) (Heparin) 5,000 units SC BID [facility] Last Admin: 06/09/18 09:15 Dose: 5,000 units Hydralazine HCl (Apresoline) 10 mg SLOW IVP Q4H PRN PRN Reason: Systolic BP > 170 Hydralazine HCl (Apresoline) 30 mg PO TID [facility] Last Admin: 06/09/18 15:38 Dose: 30 mg Levofloxacin 250 mg/ Device 50 mls @ 100 mls/hr IVPB Q2DAYS@2100 [facility] Vancomycin HCl 1.5 gm/ Sodium (Chloride) 300 mls @ 200 mls/hr IVPB WILLCALL [facility] Vancomycin HCl 1.25 gm/ Sodium (Chloride) 250 mls @ 166.667 mls/hr IVPB WILLCALL [facility] Vancomycin HCl 1 gm/ Device 200 mls @ 200 mls/hr IVPB [facility]CALL [facility] Vancomycin HCl 750 mg/ Sodium (Chloride) 250 mls @ 250 mls/hr IVPB [facility]CALL [facility] Loratadine (Claritin) 10 mg PO DAILYPRN PRN PRN Reason: Sinus Symptoms Lorazepam (Ativan) 1 mg PO Q8H PRN PRN Reason: Anxiety/Agitation Last Admin: 06/09/18 10:19 Dose: 1 mg Metoprolol Tartrate (Lopressor) 150 mg PO DAILY [facility] Last Admin: 06/09/18 09:16 Dose: 150 mg Miscellaneous Medication (Pharmacy To Dose) 1 each IVPB PRN PRN PRN Reason: Pharmacy to dose Nifedipine (Procardia Xl) 60 mg PO BID [facility] Last Admin: 06/09/18 09:17 Dose: 60 mg Nitroglycerin (Nitrostat) 0.4 mg SL Q5MIN PRN PRN Reason: Chest Pain Hold Vancomycin For (Level >20) 0 each FS .AT DIALYSIS [facility] Non-Formulary Medication (Ferric Citrate [Auryxia]) 630 [address] PO TID-[facility] Ondansetron HCl (Zofran) 4 mg IVP Q6H PRN PRN Reason: Nausea/Vomiting Last Admin: 06/09/18 09:18 Dose: 4 mg Senna (Senokot) 2 tab PO HSPRN PRN PRN Reason: Constipation Sevelamer Carbonate (Renvela) 2,400 mg PO TID-WM [facility] Last Admin: 06/09/18 12:25 Dose: 2,400 mg Sodium Chloride (Flush - Normal Saline) 10 ml IVF Q12HR [facility] Last Admin: 06/09/18 09:17 Dose: 10 ml Sodium Chloride (Flush - Normal Saline) 10 ml IVF PRN PRN PRN Reason: Saline Flush Tramadol HCl (Ultram) 50 mg PO Q4H PRN PRN Reason: Moderate Pain (4-6)
[2018-06-09] MEDS ORDERED: Lidocaine 1% w/Epinephrine 1:100K 20 ML VIAL ONE (17:48)
[2018-06-09] MEDS: Lorazepam 2 MG/ML VIAL SLOW IVP PRN (18:03)
[2018-06-09] MEDS: Famotidine 20 MG TAB PO SCH (21:52)
[2018-06-10 05:49] LABS: Band 9 % (5-11); Hemoglobin 11.5 g/dL (14.0-18.0); Lymphocytes 17 % (21-51); MDiff Complete? YES; Mean Corpuscular HGB CONC 34.1 g/dL (32.0-36.0); Mean Corpuscular Hemoglobin 30.6 pg (27.0-31.0); Mean Corpuscular Volume 89.8 fL (78.0-98.0); Mean Platelet Volume 8.6 fL (7.4-10.4); Monocytes 13 % (0-10); Neutrophil 61 % (42-75); PLT Morphology Comment Appears Adequate; Platelet Count 143 thou/uL (130-400); RBC Distribution Width 16.2 % (11.5-14.5); Red Blood Cell (RBC) Count 3.77 mill/uL (4.70-6.10); White Blood Cell (WBC) Count 8.2 thou/uL (4.8-10.8)
[2018-06-10 05:50] LABS: Anion Gap 18 mmol/L (10-20); BUN (Urea Nitrogen) 34 mg/dL (8.9-20.6); Calc. Creatinine Clearance 16 mL/min (70-130); Carbon Dioxide 27 mmol/L (22-29); Chloride 94 mmol/L (98-107); Estimated GFR-MDRD 6; Glucose 89 mg/dL (70-105); Magnesium 2.3 mg/dL (1.6-2.6); Phosphorus 7.2 mg/dL (2.3-4.7); Potassium 5.1 mmol/L (3.5-5.1); Sodium 134 mmol/L (136-145)
[2018-06-10] MEDS: Sevelamer Carbonate 800 MG TAB PO SCH ×3 (08:57→18:15)
[2018-06-10] MEDS: NIFEdipine XL 60 MG TAB PO SCH ×2 (08:58→20:35)
[2018-06-10] MEDS: hydrALAZINE 10 MG TAB PO SCH ×3 (08:58→20:35)
[2018-06-10] MEDS: Metoprolol Tartrate 100 MG TAB PO SCH (08:58)
[2018-06-10] MEDS: Cyanocobalamin (Vitamin B-12) 1,000 MCG TAB PO SCH (08:58)
[2018-06-10] MEDS: Heparin 5,000 UNITS/ML VIAL SC SCH ×2 (08:59→20:36)
[2018-06-10] MEDS: Lorazepam 2 MG/ML VIAL SLOW IVP PRN ×2 (09:47→20:30)
--- NOTE | 2018-06-10 10:44 | PRG ---
DATE OF SERVICE: 06/10/2018 SUBJECTIVE: This is a 23-year-old gentleman being seen for end-stage renal disease. The patient has no nausea, vomiting or chest pain. PHYSICAL EXAMINATION: GENERAL: Patient is awake. VITAL SIGNS: Afebrile, pulse 115, blood pressure 130/83. OBJECTIVE: See above. Awake, alert, in no acute distress. GENERAL APPEARANCE AND MENTAL STATUS: Fair. HEAD/NECK: Normocephalic. Atraumatic. EYES: EOMI. No deformity. EARS: Clear. No ulcers. NOSE: Intact. No lesions. MOUTH: Clear. No discharge. THROAT: Clear. No exudate. LUNGS: Clear. No crackles. CARDIAC: S1, S2. No rub. ABDOMEN: Benign. BS+. GENITALIA/RECTUM: Pimentel absent. BACK/EXTREMITIES: Edema 0+ Ulcer- NEUROLOGICAL: Alert and motor intact. SKIN: Rash- Bruise- LYMPHATICS: Edema- Ulcer- LABORATORY DATA: Potassium is 5.1. ASSESSMENT AND RECOMMENDATIONS: 1. Stage 6 chronic kidney disease. We will plan dialysis tomorrow. 2. Hyperkalemia, stable. 3. Bacteremia, management per primary team. No indication for dialysis today. We will follow renal function closely.
--- NOTE | 2018-06-10 11:27 | CON ---
DATE OF CONSULTATION: 06/09/2018 REASON FOR CONSULTATION: Line sepsis. HISTORY: Mr. Martínez is a 23-year-old man who has been on hemodialysis for about 6 years due to Goodpas ture's disease. He was admitted to the hospital with abdominal pain, nausea, vomiting, chest tightne ss and shortness of breath. He underwent hemodialysis and had a code green due to chest pain. He do es have a history of MRSA with blood cultures positive for Micrococcus at the time of his last hospit al admission. He has had several blood cultures positive during this admission for Staph aureus and his mica machine operator has requested removal of his hemodialysis catheter with replacement. He usually und ergoes dialysis Friday, Friday, and Friday, but underwent dialysis on Friday due to his code gree n at dialysis on Friday. He continues to have complaints of chest tightness and shortness of breath which his medical team feels is primarily due to anxiety, but he was transferred to the [facility] for clos er monitoring and observation. At the time that I saw him on Friday he was not complaining of any c hest pain or shortness of breath. 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 He also has GERD. PAST SURGICAL HISTORY: Multiple dialysis accesses of the left upper extremity. He underwent a right basilic vein AV fistula in [place] by his vascular surgeon, but this has not yet been transposed. He has a left internal jugular catheter in place and scars from previous right internal jugular cathete rs. He underwent a renal transplant in 2012, but developed chronic rejection and eventual failure. PAST PSYCHIATRIC HISTORY: Anxiety and depression. ALLERGIES: He reports allergies to HYDROCODONE and LORABID. FAMILY HISTORY: He has family history of renal disease and hypertension. REVIEW OF SYSTEMS: Twelve system review of systems is negative except per HPI. He denies fevers or chills. SOCIAL HISTORY: He does not smoke, drink or use illicit drugs. LABORATORY DATA: White count has been mildly elevated throughout his hospital stay, hematocrit is at around 35 chronically, platelet count is normal. Potassium is slightly high at 5.8. Other electrol ytes are unremarkable. BUN and creatinine chronically elevated. Random vancomycin level on Friday w as less than 1.1. Chest x-ray on admission showed cardiomegaly, but no acute changes. PHYSICAL EXAMINATION: VITAL SIGNS: The patient has been running temperatures up to 102.5 during this admission. In the mt st 24 hours, he has had low grade temperatures, heart rate has been variable in the 90s to 1-teens, r espiratory rate and room air sats normal, but blood pressure moderately to severely elevated on an in termittent basis. When I saw him, he was in the 170s systolic. GENERAL: Reveals an anxious appearing young man in no acute distress. He is not flushed or toxic. He is not diaphoretic. He is not jaundiced or icteric. HEENT: Unremarkable. No lymphadenopathy is noted. He has a left IJ catheter in place which is not tender, but does have some exudate at the exit site. HEART: Tachycardic, but regular, without rubs or gallops. He does have a soft systolic murmur. LUNGS: Clear to auscultation bilaterally. EXTREMITIES: Warm and well perfused. He has an excellent thrill in his basilic fistula. He has mul tiple scars on the left arm at previous dialysis access sites, but no flow through any at the fistula s or graft. NEUROLOGIC: No focal defects. PSYCHIATRIC: Alert, oriented, and appropriate, but anxious. ASSESSMENT: Line sepsis. He has a right upper arm basilic fistula in place which will require trans position and maturation before it is ready to access. He does have an appointment for his transposit ion already scheduled in [place], but will require access until he is done with this process. I recom mended removal of his hemodialysis access today with replacement of the catheter on to resum e a scheduled hemodialysis. The patient is in agreement with this plan. The inherent risks of the d ialysis catheter removal were discussed with the patient. He understands that this will be done with local anesthesia only at the bedside. This was performed as detailed below and he tolerated this we ll. He will continue to receive antibiotics and we will plan to replace a dialysis catheter on .
--- NOTE | 2018-06-10 11:29 | OP ---
DATE OF PROCEDURE: 06/09/2018 PROCEDURE: Removal of tunneled hemodialysis catheter PREOPERATIVE DIAGNOSIS: Line sepsis. POSTOPERATIVE DIAGNOSIS: Line sepsis. HISTORY OF PRESENT ILLNESS: Mr. Martínez is a 23-year-old male with line sepsis. His occupational health nurse supervisor has r equested removal and replacement of his tunneled hemodialysis catheter. PROCEDURE: After informed consent was obtained, the patient's left IJ tunnel hemodialysis catheter s ite was prepped with ChloraPrep. Local anesthesia was infused to the skin and subcutaneous tissues s urrounding the catheter. The cuff was dissected free of the subcutaneous tissues. There was minimal scar formation evident. The patient was placed flat and the catheter was removed during exhalation. Pressure was held at the site for 5 minutes and a sterile dressing placed. The patient tolerated t he procedure well. Estimated blood loss was minimal. There were no complications. There were no sp ecimens.
[2018-06-10] MEDS: Lorazepam 1 MG TAB PO PRN (18:29)
--- NOTE | 2018-06-10 20:08 | PDOC.PN ---
- Subjective Encounter Start Date: 06/10/18 Encounter Start Time: 20:06 (late entry) Subjective: feels much better today w intermittent episodes of CP/SOB/dizzy spells - Objective MAR Reviewed: Yes Vital Signs & Weight: Vital Signs (12 hours) Temp Pulse Resp BP BP Pulse Ox 06/10/18 15:58 99.1 F 97 27 H 160/89 H 93 L 06/10/18 15:51 160/89 H 06/10/18 12:03 99.7 F H 100 126/86 95 06/10/18 08:58 123 H 128/83 Weight Weight 258 lb 2.581 oz I&O: 06/09/18 06/10/18 06/11/18 06:59 06:59 06:59 Intake Total 240 480 Output Total 1000 Balance -760 480 Result Diagrams: 06/10/18 05:19 06/10/18 05:19 Additional Labs: Microbiology 06/10/18 12:45 Stool Stool Lactoferrin - Final 06/10/18 12:45 Stool Shiga Toxin Test - Final 06/08/18 10:20 Dialysis - Left Internal Jugular Vein Bacterial Culture - Final Methicillin resistant S.aureus 06/08/18 15:49 Venous blood - Left Hand Blood Culture - Preliminary Staphylococcus aureus 06/08/18 15:19 Venous blood - Left Hand Blood Culture - Preliminary Staphylococcus aureus 06/08/18 10:10 Dialysis - Left Internal Jugular Vein Blood Culture - Preliminary Staphylococcus aureus 06/08/18 10:00 Dialysis - Left Internal Jugular Vein Blood Culture - Preliminary Methicillin resistant S.aureus labs reviewed Phys Exam - Physical Examination Constitutional: NAD HEENT: PERRLA, moist MMs, sclera anicteric, oral pharynx no lesions Neck: no nodes, no JVD, supple, full ROM Respiratory: no wheezing, no rales, no rhonchi, clear to auscultation bilateral Cardiovascular: RRR, no significant murmur, no rub Gastrointestinal: soft, non-tender, no distention, positive bowel sounds Musculoskeletal: no edema, pulses present Neurological: non-focal, normal sensation, moves all 4 limbs Psychiatric: normal affect, A&O x 3 Dx/Plan (1) C. difficile diarrhea Code(s): A04.72 - ENTEROCOLITIS D/T CLOSTRIDIUM DIFFICILE, NOT SPCF RECUR Status: Acute (2) Sepsis Code(s): A41.9 - SEPSIS, UNSPECIFIED ORGANISM Status: Acute (3) Bacteremia due to methicillin resistant Staphylococcus aureus Code(s): R78.81 - BACTEREMIA Status: Acute (4) Hyperkalemia Code(s): E87.5 - HYPERKALEMIA Status: Acute (5) Anemia of renal disease Code(s): D63.1 - ANEMIA IN CHRONIC KIDNEY DISEASE Status: Chronic (6) ESRD (end stage renal disease) on dialysis Code(s): N18.6 - END STAGE RENAL DISEASE; Z99.2 - DEPENDENCE ON RENAL DIALYSIS Status: Chronic Comment: Dialysis per nephrology service (7) GERD (gastroesophageal reflux disease) Code(s): K21.9 - GASTRO-ESOPHAGEAL REFLUX DISEASE WITHOUT ESOPHAGITIS Status: Chronic (8) Obesity (BMI 30.0-34.9) Code(s): E66.9 - OBESITY, UNSPECIFIED Status: Chronic (9) Secondary hyperparathyroidism of renal origin Code(s): N25.81 - SECONDARY HYPERPARATHYROIDISM OF RENAL ORIGIN Status: Chronic - Plan continue antibiotics, respiratory therapy, out of bed/ambulate, DVT proph w/SCDs Add IV flagyl for C diff Antigen positive. c -: cont IV Vancomycin for MRSAbactereima -: Cathere removed. Fistula not ready for use -: New HD cathter tomorrow .appreciate GS help -: am labs. Hemodialysis * . Review of Systems - Review of Systems Constitutional: chills, sweats, weakness, malaise ENT: negative: Ear Pain, Ear Discharge, Nose Pain, Nose Discharge, Nose Congestion, Mouth Pain, Mouth Swelling, Throat Pain, Throat Swelling, Other Respiratory: Shortness of Breath, SOB with Excertion. negative: Cough, Dry, Hemoptysis, Pleuritic Pain, Sputum, Wheezing Cardiovascular: chest pain, palpitations, light headedness Gastrointestinal: Diarrhea. negative: Nausea, Vomiting, Abdominal Pain, Constipation, Melena, Hematochezia, Other Genitourinary: negative: Dysuria, Frequency, Incontinence, Hematuria, Retention , Other Musculoskeletal: negative: Neck Pain, Shoulder Pain, Arm Pain, Back Pain, Hand Pain, Leg Pain, Foot Pain, Other Skin: negative: Rash, Lesions, Ford, Bruising, Other Neurological: negative: Weakness, Numbness, Incoordination, Change in Speech, Confusion, Seizures, Other - Medications/Allergies Allergies/Adverse Reactions: Allergies Allergy/AdvReac Type Severity Reaction Status Date / Time loracarbef [From Lorabid] Allergy Severe Verified 06/08/18 17:14 Medications: Current Medications Acetaminophen (Tylenol) 650 mg PO Q4H PRN PRN Reason: Headache/Fever or Pain Last Admin: 06/09/18 21:52 Dose: 650 mg Hydrocodone Bitart/Acetaminophen ([place] 5/325) 1 tab PO Q4H PRN PRN Reason: Moderate Pain (4-6) Last Admin: 06/09/18 15:39 Dose: 1 tab Al Hydroxide/Mg Hydroxide (Maalox) 30 ml PO Q6H PRN PRN Reason: Heartburn or Indigestion Benzonatate (Tessalon) 100 mg PO Q4H PRN PRN Reason: Cough Bisacodyl (Dulcolax) 10 mg PO DAILYPRN PRN PRN Reason: Constipation Last Admin: 06/09/18 18:01 Dose: 10 mg Calcium Carbonate (Tums) 1,000 mg PO Q4H PRN PRN Reason: Heartburn or Indigestion Clonidine (Catapres) 0.1 mg PO Q4H PRN PRN Reason: Systolic BP > 160 Last Admin: 06/08/18 23:49 Dose: 0.1 mg Cyanocobalamin (Vitamin B-12) 2,000 mcg PO DAILY [facility] Last Admin: 06/10/18 08:58 Dose: 2,000 mcg Famotidine (Pepcid) 20 mg PO Q24HR [facility] Last Admin: 06/09/18 21:52 Dose: 20 mg Guaifenesin (Robitussin Sf) 200 mg PO Q4H PRN PRN Reason: Cough Heparin Sodium (Porcine) (Heparin) 5,000 units SC BID [facility] Last Admin: 06/10/18 08:59 Dose: 5,000 units Hydralazine HCl (Apresoline) 10 mg SLOW IVP Q4H PRN PRN Reason: Systolic BP > 170 Hydralazine HCl (Apresoline) 30 mg PO TID [facility] Last Admin: 06/10/18 15:51 Dose: 30 mg Vancomycin HCl 1.5 gm/ Sodium (Chloride) 300 mls @ 200 mls/hr IVPB WILLCALL [facility] Vancomycin HCl 1.25 gm/ Sodium (Chloride) 250 mls @ 166.667 mls/hr IVPB WILLCALL [facility] Vancomycin HCl 1 gm/ Device 200 mls @ 200 mls/hr IVPB [facility] Vancomycin HCl 750 mg/ Sodium (Chloride) 250 mls @ 250 mls/hr IVPB [facility] Metronidazole 500 mg/ Device 100 mls @ 100 mls/hr IVPB Q8HR [facility] Loratadine (Claritin) 10 mg PO DAILYPRN PRN PRN Reason: Sinus Symptoms Lorazepam (Ativan) 1 mg PO Q8H PRN PRN Reason: Anxiety/Agitation Last Admin: 06/10/18 18:29 Dose: 1 mg Lorazepam (Ativan) 1 mg SLOW IVP Q4H PRN PRN Reason: Anxiety/Agitation Last Admin: 06/10/18 09:47 Dose: 1 mg Metoprolol Tartrate (Lopressor) 150 mg PO DAILY [facility] Last Admin: 06/10/18 08:58 Dose: 150 mg Miscellaneous Medication (Pharmacy To Dose) 1 each IVPB PRN PRN PRN Reason: Pharmacy to dose Nifedipine (Procardia Xl) 60 mg PO BID [facility] Last Admin: 06/10/18 08:58 Dose: 60 mg Nitroglycerin (Nitrostat) 0.4 mg SL Q5MIN PRN PRN Reason: Chest Pain Hold Vancomycin For (Level >20) 0 each FS .AT DIALYSIS [facility] Non-Formulary Medication (Ferric Citrate [Auryxia]) 630 mg PO TID-[facility] Ondansetron HCl (Zofran) 4 mg IVP Q6H PRN PRN Reason: Nausea/Vomiting Last Admin: 06/09/18 09:18 Dose: 4 mg Senna (Senokot) 2 tab PO HSPRN PRN PRN Reason: Constipation Sevelamer Carbonate (Renvela) 2,400 mg PO TID-WM [facility] Last Admin: 06/10/18 18:15 Dose: 2,400 mg Sodium Chloride (Flush - Normal Saline) 10 ml IVF Q12HR [facility] Last Admin: 06/10/18 08:59 Dose: 10 ml Sodium Chloride (Flush - Normal Saline) 10 ml IVF PRN PRN PRN Reason: Saline Flush Tramadol HCl (Ultram) 50 mg PO Q4H PRN PRN Reason: Moderate Pain (4-6)
[2018-06-10] MEDS: Famotidine 20 MG TAB PO SCH (20:35)
[2018-06-10] MEDS: metroNIDAZOLE 500 MG in Premix Bag 1 BAG IVPB SCH (20:36)
[2018-06-10] MEDS ORDERED: diphenhydrAMINE 50 MG/ML VIAL IVP SCH (21:45)
[2018-06-11] MEDS: metroNIDAZOLE 500 MG in Premix Bag 1 BAG IVPB SCH ×3 (05:16→22:05)
[2018-06-11 05:18] LABS: Anion Gap 21 mmol/L (10-20); BUN (Urea Nitrogen) 45 mg/dL (8.9-20.6); Calc. Creatinine Clearance 12 mL/min (70-130); Calcium 9.9 mg/dL (7.8-10.44); Carbon Dioxide 25 mmol/L (22-29); Chloride 93 mmol/L (98-107); Estimated GFR-MDRD 5; Glucose 89 mg/dL (70-105); Magnesium 2.4 mg/dL (1.6-2.6); Phosphorus 7.5 mg/dL (2.3-4.7); Potassium 4.6 mmol/L (3.5-5.1); Sodium 134 mmol/L (136-145)
[2018-06-11 05:53] LABS: Band 14 % (5-11); Hemoglobin 10.9 g/dL (14.0-18.0); Lymphocytes 25 % (21-51); MDiff Complete? YES; Mean Corpuscular HGB CONC 34.3 g/dL (32.0-36.0); Mean Corpuscular Hemoglobin 30.7 pg (27.0-31.0); Mean Corpuscular Volume 89.4 fL (78.0-98.0); Mean Platelet Volume 8.9 fL (7.4-10.4); Monocytes 18 % (0-10); Neutrophil 43 % (42-75); Platelet Count 153 thou/uL (130-400); RBC Distribution Width 16.3 % (11.5-14.5); Red Blood Cell (RBC) Count 3.57 mill/uL (4.70-6.10); White Blood Cell (WBC) Count 6.4 thou/uL (4.8-10.8)
[2018-06-11] MEDS ORDERED: Heparin 10,000 UNITS/ 10 ML VIAL ONE (09:00)
[2018-06-11] MEDS: Heparin 5,000 UNITS/ML VIAL SC SCH ×2 (09:31→20:33)
[2018-06-11] MEDS: Sevelamer Carbonate 800 MG TAB PO SCH ×3 (09:31→16:47)
[2018-06-11] MEDS: hydrALAZINE 10 MG TAB PO SCH ×3 (09:33→20:32)
[2018-06-11] MEDS: Metoprolol Tartrate 100 MG TAB PO SCH (09:36)
[2018-06-11 11:03] LABS: Vancomycin, Random 14.7 ug/mL (See Comment)
--- NOTE | 2018-06-11 12:04 | PRG ---
DATE OF SERVICE: 06/11/2018 SUBJECTIVE: This 23-year-old gentleman being seen for end-stage renal disease. The patient denies a ny nausea, vomiting or chest pain. PHYSICAL EXAMINATION: GENERAL: Patient is awake, alert. VITAL SIGNS: Temperature 99.8, pulse 117, breathing at 16, blood pressure 124/68. HEAD/NECK: Normocephalic. Atraumatic. EYES: EOMI. No deformity. EARS: Clear. No ulcers. NOSE: Intact. No lesions. MOUTH: Clear. No discharge. THROAT: Clear. No exudate. LUNGS: Clear. No crackles. CARDIAC: S1, S2. No rub. ABDOMEN: Benign. BS+. GENITALIA/RECTUM: Pimentel absent. BACK/EXTREMITIES: Edema 0+ Ulcer- NEUROLOGICAL: Alert and motor intact. SKIN: Rash- Bruise- LYMPHATICS: Edema- Ulcer- LABORATORY DATA: Show hemoglobin 10.9, potassium is 4.2. ASSESSMENT AND RECOMMENDATIONS: 1. Stage 6 chronic kidney disease. Continue hemodialysis. 2. Hypertension, stable. 3. Anemia, stable. 4. Sepsis management per primary team.
[2018-06-11] MEDS ORDERED: Heparin 10,000 UNITS/1 ML VIAL ONE (13:31)
[2018-06-11] MEDS ORDERED: Sodium Chloride 0.9% 0 ML ONE (13:31)
[2018-06-11] MEDS ORDERED: Lidocaine 2% 10 ML INJ ONE (13:31)
[2018-06-11] MEDS ORDERED: Bupivacaine/Epinephrine 0.25% 30 ML VIAL ONE (13:31)
[2018-06-11] MEDS: Vancomycin HCl 1 GM in Premix Bag 1 BAG IVPB SCH (13:36)
[2018-06-11] MEDS ORDERED: Fentanyl 100 MCG/2 ML VIAL ONE (13:40)
[2018-06-11] MEDS ORDERED: Midazolam HCl 2 mg/2 ml Vial ONE (13:40)
[2018-06-11] MEDS ORDERED: Ketamine 50 MG/ML VIAL ONE (13:40)
[2018-06-11] MEDS ORDERED: Propofol 500 MG/50 ML VIAL ONE ×2 (13:40→15:18)
--- NOTE | 2018-06-11 14:43 | PDOC.PN ---
- Subjective Encounter Start Date: 06/11/18 Encounter Start Time: 14:41 Subjective: he actually feels much better today.no more chest pain or SOB -: still weak and some dizziness -: appt on Friday at [facility] in [place] - Objective JAN Reviewed: Yes Vital Signs & Weight: Vital Signs (12 hours) Temp Pulse Resp BP Pulse Ox 06/11/18 11:34 98.9 F 92 29 H 154/90 H 95 06/11/18 09:33 117 H 06/11/18 07:58 98.9 F 117 H 19 125/68 93 L 06/11/18 07:46 98.9 F 117 H 19 06/11/18 04:00 98.8 F 108 H 16 137/85 95 Weight Weight 259 lb 7.745 oz I&O: 06/10/18 06/11/18 06/12/18 06:59 06:59 06:59 Intake Total 240 480 Output Total 1000 Balance -760 480 Result Diagrams: 06/11/18 04:27 06/11/18 04:27 Additional Labs: Microbiology 06/10/18 12:45 Stool Stool Lactoferrin - Final 06/10/18 12:45 Stool Shiga Toxin Test - Final 06/08/18 15:49 Venous blood - Left Hand Blood Culture - Final Staphylococcus aureus 06/08/18 15:19 Venous blood - Left Hand Blood Culture - Final Staphylococcus aureus 06/08/18 10:20 Dialysis - Left Internal Jugular Vein Bacterial Culture - Final Methicillin resistant S.aureus 06/08/18 10:10 Dialysis - Left Internal Jugular Vein Blood Culture - Final Methicillin resistant S.aureus 06/08/18 10:00 Dialysis - Left Internal Jugular Vein Blood Culture - Final Methicillin resistant S.aureus 06/10/18 12:45 Stool Stool Culture - Preliminary labs reviewed CDiff antigen +ve Phys Exam - Physical Examination Constitutional: NAD HEENT: PERRLA, moist MMs, sclera anicteric, oral pharynx no lesions Neck: no nodes, no JVD, supple, full ROM Respiratory: no wheezing, no rales, no rhonchi, clear to auscultation bilateral Cardiovascular: RRR, no significant murmur Gastrointestinal: soft, non-tender, no distention, positive bowel sounds Musculoskeletal: no edema, pulses present Neurological: non-focal, normal sensation, moves all 4 limbs Psychiatric: normal affect, A&O x 3 Skin: no rash Dx/Plan (1) C. difficile diarrhea Code(s): A04.72 - ENTEROCOLITIS D/T CLOSTRIDIUM DIFFICILE, NOT SPCF RECUR Status: Acute Comment: on IV Flagyl (2) Sepsis Code(s): A41.9 - SEPSIS, UNSPECIFIED ORGANISM Status: Acute (3) Bacteremia due to methicillin resistant Staphylococcus aureus Code(s): R78.81 - BACTEREMIA Status: Acute Comment: IV Vancomycin (4) Hyperkalemia Code(s): E87.5 - HYPERKALEMIA Status: Acute (5) Anemia of renal disease Code(s): D63.1 - ANEMIA IN CHRONIC KIDNEY DISEASE Status: Chronic (6) ESRD (end stage renal disease) on dialysis Code(s): N18.6 - END STAGE RENAL DISEASE; Z99.2 - DEPENDENCE ON RENAL DIALYSIS Status: Chronic Comment: Dialysis per nephrology service (7) GERD (gastroesophageal reflux disease) Code(s): K21.9 - GASTRO-ESOPHAGEAL REFLUX DISEASE WITHOUT ESOPHAGITIS Status: Chronic (8) Obesity (BMI 30.0-34.9) Code(s): E66.9 - OBESITY, UNSPECIFIED Status: Chronic (9) Secondary hyperparathyroidism of renal origin Code(s): N25.81 - SECONDARY HYPERPARATHYROIDISM OF RENAL ORIGIN Status: Chronic - Plan continue antibiotics, incentive spirometry, out of bed/ambulate, DVT proph w/ SCDs New HD cathter placement today.appreciate GS input -: cont ABx. -: ECHO results discussed w nephro,ID.no need for MICHAEL for now -: hoepfully will be able to DC on OP ABx so pt can keep appt on Friday -: am labs.HD stable. * . Review of Systems - Review of Systems Constitutional: weakness, malaise. negative: fever, chills, sweats, other ENT: negative: Ear Pain, Ear Discharge, Nose Pain, Nose Discharge, Nose Congestion, Mouth Pain, Mouth Swelling, Throat Pain, Throat Swelling, Other Respiratory: negative: Cough, Dry, Shortness of Breath, Hemoptysis, SOB with Excertion, Pleuritic Pain, Sputum, Wheezing Cardiovascular: negative: chest pain, palpitations, orthopnea, paroxysmal nocturnal dyspnea, edema, light headedness, other Gastrointestinal: negative: Nausea, Vomiting, Abdominal Pain, Diarrhea, Constipation, Melena, Hematochezia, Other Genitourinary: negative: Dysuria, Frequency, Incontinence, Hematuria, Retention , Other Musculoskeletal: negative: Neck Pain, Shoulder Pain, Arm Pain, Back Pain, Hand Pain, Leg Pain, Foot Pain, Other Skin: negative: Rash, Lesions, Ford, Bruising, Other Neurological: negative: Weakness, Numbness, Incoordination, Change in Speech, Confusion, Seizures, Other - Medications/Allergies Allergies/Adverse Reactions: Allergies Allergy/AdvReac Type Severity Reaction Status Date / Time loracarbef [From Lorabid] Allergy Severe Verified 06/08/18 17:14 Medications: Current Medications Acetaminophen (Tylenol) 650 mg PO Q4H PRN PRN Reason: Headache/Fever or Pain Last Admin: 06/09/18 21:52 Dose: 650 mg Hydrocodone Bitart/Acetaminophen (Valliant 5/325) 1 tab PO Q4H PRN PRN Reason: Moderate Pain (4-6) Last Admin: 06/09/18 15:39 Dose: 1 tab Al Hydroxide/Mg Hydroxide (Maalox) 30 ml PO Q6H PRN PRN Reason: Heartburn or Indigestion Benzonatate (Tessalon) 100 mg PO Q4H PRN PRN Reason: Cough Bisacodyl (Dulcolax) 10 mg PO DAILYPRN PRN PRN Reason: Constipation Last Admin: 06/09/18 18:01 Dose: 10 mg Calcium Carbonate (Tums) 1,000 mg PO Q4H PRN PRN Reason: Heartburn or Indigestion Clonidine (Catapres) 0.1 mg PO Q4H PRN PRN Reason: Systolic BP > 160 Last Admin: 06/08/18 23:49 Dose: 0.1 mg Cyanocobalamin (Vitamin B-12) 2,000 mcg PO DAILY [facility] Last Admin: 06/10/18 08:58 Dose: 2,000 mcg Famotidine (Pepcid) 20 mg PO Q24HR [facility] Last Admin: 06/10/18 20:35 Dose: 20 mg Guaifenesin (Robitussin Sf) 200 mg PO Q4H PRN PRN Reason: Cough Heparin Sodium (Porcine) (Heparin) 5,000 units SC BID [facility] Last Admin: 06/11/18 09:31 Dose: Not Given Hydralazine HCl (Apresoline) 10 mg SLOW IVP Q4H PRN PRN Reason: Systolic BP > 170 Hydralazine HCl (Apresoline) 30 mg PO TID [facility] Last Admin: 06/11/18 09:33 Dose: Not Given Vancomycin HCl 1.5 gm/ Sodium (Chloride) 300 mls @ 200 mls/hr IVPB WILLCALL [facility] Vancomycin HCl 1.25 gm/ Sodium (Chloride) 250 mls @ 166.667 mls/hr IVPB [facility]CALL [facility] Vancomycin HCl 1 gm/ Device 200 mls @ 200 mls/hr IVPB [facility]CALL [facility] Last Admin: 06/11/18 13:36 Dose: 200 mls Vancomycin HCl 750 mg/ Sodium (Chloride) 250 mls @ 250 mls/hr IVPB [facility]CALL [facility] Metronidazole 500 mg/ Device 100 mls @ 100 mls/hr IVPB Q8HR [facility] Last Admin: 06/11/18 05:16 Dose: 100 mls Loratadine (Claritin) 10 mg PO DAILYPRN PRN PRN Reason: Sinus Symptoms Lorazepam (Ativan) 1 mg PO Q8H PRN PRN Reason: Anxiety/Agitation Last Admin: 06/10/18 18:29 Dose: 1 mg Lorazepam (Ativan) 1 mg SLOW IVP Q4H PRN PRN Reason: Anxiety/Agitation Last Admin: 06/10/18 20:30 Dose: 1 mg Metoprolol Tartrate (Lopressor) 150 mg PO DAILY [facility] Last Admin: 06/11/18 09:36 Dose: 150 mg Miscellaneous Medication (Pharmacy To Dose) 1 each IVPB PRN PRN PRN Reason: Pharmacy to dose Nifedipine (Procardia Xl) 60 mg PO BID [facility] Last Admin: 06/10/18 20:35 Dose: 60 mg Nitroglycerin (Nitrostat) 0.4 mg SL Q5MIN PRN PRN Reason: Chest Pain Hold Vancomycin For (Level >20) 0 each FS .AT DIALYSIS [facility] Non-Formulary Medication (Ferric Citrate [Auryxia]) 630 mg PO TID-[facility] Ondansetron HCl (Zofran) 4 mg IVP Q6H PRN PRN Reason: Nausea/Vomiting Last Admin: 06/09/18 09:18 Dose: 4 mg Senna (Senokot) 2 tab PO HSPRN PRN PRN Reason: Constipation Sevelamer Carbonate (Renvela) 2,400 mg PO TID-WM [facility] Last Admin: 06/11/18 13:20 Dose: Not Given Sodium Chloride (Flush - Normal Saline) 10 ml IVF Q12HR [facility] Last Admin: 06/11/18 13:21 Dose: Not Given Sodium Chloride (Flush - Normal Saline) 10 ml IVF PRN PRN PRN Reason: Saline Flush Tramadol HCl (Ultram) 50 mg PO Q4H PRN PRN Reason: Moderate Pain (4-6)
--- NOTE | 2018-06-11 16:28 | RAD ---
X-RAY FLUORO INHERENT TO SURGICAL PROCEDURE: 06/11/18 HISTORY: Mediport. COMPARISON: None. FINDINGS: Single fluoroscopic spot images of the chest is performed. The fluoro time is 6 minutes and 46 second s. IMPRESSION: Fluoroscopy for surgical use. POS: ROQUE
[2018-06-11] MEDS: Cyanocobalamin (Vitamin B-12) 1,000 MCG TAB PO SCH (16:46)
[2018-06-11] MEDS: NIFEdipine XL 60 MG TAB PO SCH ×2 (16:47→20:33)
[2018-06-11] MEDS: HYDROcodone/Acetaminophen 5/325 mg Tablet PO PRN (20:29)
[2018-06-11] MEDS: Famotidine 20 MG TAB PO SCH (20:33)
[2018-06-11] MEDS: Lorazepam 1 MG TAB PO PRN (20:33)
--- NOTE | 2018-06-11 21:03 | RAD ---
SUPINE AP ABDOMINAL RADIOGRAPH 06/11/18 HISTORY: Femoral hemodialysis catheter placement. FINDINGS: There is a radiopaque catheter overlying the right inguinal region as well as overlying the right asp ect of the abdomen and pelvis likely related to patient's hemodialysis catheter. The tip is not image d on this exam. Bowel gas pattern is nonspecific. Osseous structures are intact. IMPRESSION: Hemodialysis catheter overlying the medial aspect of the right abdomen. The tip is not imaged on this exam. POS: ROQUE
--- NOTE | 2018-06-11 21:06 | RAD ---
PORTABLE AP CHEST X-RAY 06/11/18 HISTORY: Attempted hemodialysis catheter placement. COMPARISON: 06/08/18. FINDINGS: The tunneled left internal jugular vein hemodialysis catheter noted on the prior study has been remov ed. Cardiac silhouette is magnified by projection and stable in size but does appear mildly enlarged. Central pulmonary vasculature is mildly prominent. There is no pleural effusion or pneumothorax and the lungs are otherwise clear. IMPRESSION: 1. Mild prominence of the central pulmonary vasculature and mild cardiomegaly. 2. No pneumothorax or pleural effusion is seen. 3. Interval removal of the hemodialysis catheter. POS: ROQUE
[2018-06-11] MEDS ORDERED: diphenhydrAMINE 50 MG/ML VIAL IVP SCH (22:15)
[2018-06-12 04:17] LABS: Anion Gap 20 mmol/L (10-20); BUN (Urea Nitrogen) 43 mg/dL (8.9-20.6); Calc. Creatinine Clearance 13 mL/min (70-130); Calcium 10.2 mg/dL (7.8-10.44); Carbon Dioxide 25 mmol/L (22-29); Chloride 94 mmol/L (98-107); Estimated GFR-MDRD 5; Glucose 90 mg/dL (70-105); Magnesium 2.5 mg/dL (1.6-2.6); Phosphorus 8.2 mg/dL (2.3-4.7); Potassium 4.3 mmol/L (3.5-5.1); Sodium 135 mmol/L (136-145)
[2018-06-12 05:16] LABS: Band 13 % (5-11); Eosinophils 2 % (0-10); Hemoglobin 11.3 g/dL (14.0-18.0); Lymphocytes 39 % (21-51); MDiff Complete? YES; Mean Corpuscular HGB CONC 33.3 g/dL (32.0-36.0); Mean Corpuscular Hemoglobin 29.9 pg (27.0-31.0); Mean Corpuscular Volume 89.7 fL (78.0-98.0); Mean Platelet Volume 9.3 fL (7.4-10.4); Monocytes 13 % (0-10); Neutrophil 33 % (42-75); Platelet Count 161 thou/uL (130-400); RBC Distribution Width 16.3 % (11.5-14.5); Red Blood Cell (RBC) Count 3.79 mill/uL (4.70-6.10); White Blood Cell (WBC) Count 5.1 thou/uL (4.8-10.8)
[2018-06-12] MEDS: metroNIDAZOLE 500 MG in Premix Bag 1 BAG IVPB SCH ×3 (06:08→21:43)
[2018-06-12] MEDS ORDERED: Activase 2 MG VIAL CATH SCH (09:15)
--- NOTE | 2018-06-12 09:24 | PRG ---
DATE OF SERVICE: 06/11/2018 HISTORY: Mr. Martínez is being dialyzed. He has a new tunneled catheter in the right groin position. T he previous one has been removed. No headaches, no visual symptoms. No respiratory symptoms or abdo kenji pain, no back pain. PHYSICAL EXAMINATION: VITAL SIGNS: T-max 98.9, pulse of 105, blood pressure 129/81. GENERAL: Awake, alert, oriented, in no distress. NECK: Supple. LUNGS: Lungs with symmetric air entry. HEART: S1, S2, regular rate. ABDOMEN: No abdominal findings of significance. EXTREMITIES: Right tunneled dialysis catheter. LABORATORY DATA: White cell count 5.1, hemoglobin 11, platelets 161, 39% lymphocytes, 13% bands, 33% neutrophils. Chemistry as expected for his diagnosis. Clostridium difficile was negative. Last blood cultures from 06/08/2018 were still positive for Stap h aureus and needs to be repeated. 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 He has a hist ory of chronic rejection with fever and recent episode of inflammatory changes exit site hemodialysis catheter and now with Staph aureus bacteremia secondary to catheter colonization. The echocardiogra m report showed asymmetrical septal hypertrophy, moderate dilated left atrium, but no other significa nt findings. He aortic root was felt to be dilated at 4.[address] angio was recommended. The pa tient to continue IV vancomycin per sliding scale at dialysis. The end date of therapy will be 07/09.
[2018-06-12] MEDS ORDERED: Heparin 1,000 UNITS/ML VIAL ONE (11:11)
[2018-06-12] MEDS: Sevelamer Carbonate 800 MG TAB PO SCH ×3 (12:38→16:36)
--- NOTE | 2018-06-12 12:38 | PRG ---
DATE OF SERVICE: 06/12/2018 SUBJECTIVE: A 23-year-old gentleman being seen for end-stage renal disease. The patient denies any nausea, vomiting or chest pain. PHYSICAL EXAMINATION: GENERAL: Patient is awake, alert. VITAL SIGNS: Afebrile, pulse 75, breathing 16, blood pressure 129/81. HEAD/NECK: Normocephalic. Atraumatic. EYES: EOMI. No deformity. EARS: Clear. No ulcers. NOSE: Intact. No lesions. MOUTH: Clear. No discharge. THROAT: Clear. No exudate. LUNGS: Clear. No crackles. CARDIAC: S1, S2. No rub. ABDOMEN: Benign. BS+. GENITALIA/RECTUM: Pimentel absent. BACK/EXTREMITIES: Edema 0+ Ulcer- NEUROLOGICAL: Alert and motor intact. SKIN: Rash- Bruise- LYMPHATICS: Edema- Ulcer- LABORATORY DATA: Show hemoglobin 11.3. Creatinine is . ASSESSMENT AND RECOMMENDATIONS: 1. Stage 6 chronic kidney disease. Continue hemodialysis. 2. Hypertension. 3. Anemia, stable. 4. Medications based on glomerular filtration rate are appropriate 5. Hyperphosphatemia. Continue binders.
[2018-06-12] MEDS: NIFEdipine XL 60 MG TAB PO SCH ×2 (12:39→20:34)
[2018-06-12] MEDS: Cyanocobalamin (Vitamin B-12) 1,000 MCG TAB PO SCH (12:39)
[2018-06-12] MEDS: Metoprolol Tartrate 100 MG TAB PO SCH (12:39)
[2018-06-12] MEDS: hydrALAZINE 10 MG TAB PO SCH ×3 (12:40→20:34)
[2018-06-12] MEDS: HYDROcodone/Acetaminophen 5/325 mg Tablet PO PRN (12:41)
[2018-06-12] MEDS: Lorazepam 1 MG TAB PO PRN (12:42)
[2018-06-12] MEDS: Heparin 5,000 UNITS/ML VIAL SC SCH ×2 (12:42→20:33)
--- NOTE | 2018-06-12 14:06 | PDOC.PN ---
- Subjective Encounter Start Date: 06/12/18 Encounter Start Time: 14:04 Subjective: feels better. no new complaints -: no more chest pain/SOB.seen and examined in HD - Objective MAR Reviewed: Yes Vital Signs & Weight: Vital Signs (12 hours) Temp Pulse Resp BP BP Pulse Ox 06/12/18 12:40 122 H 146/92 H 06/12/18 12:39 122 H 146/92 H 06/12/18 12:35 98.6 F 122 H 18 146/92 H 94 L 06/12/18 08:00 98.4 F 105 H 16 93 L 06/12/18 07:45 98.4 F 105 H 16 129/81 93 L 06/12/18 04:00 98.3 F 104 H 15 139/87 95 Weight Weight 257 lb 14.4 oz I&O: 06/11/18 06/12/18 06/13/18 06:59 06:59 06:59 Intake Total 480 500 Output Total 2000 Balance 480 -1500 Result Diagrams: 06/12/18 03:29 06/12/18 03:29 Additional Labs: Microbiology 06/10/18 12:45 Stool Stool Lactoferrin - Final 06/10/18 12:45 Stool Shiga Toxin Test - Final 06/08/18 15:49 Venous blood - Left Hand Blood Culture - Final Staphylococcus aureus 06/08/18 15:19 Venous blood - Left Hand Blood Culture - Final Staphylococcus aureus 06/08/18 10:20 Dialysis - Left Internal Jugular Vein Bacterial Culture - Final Methicillin resistant S.aureus 06/08/18 10:10 Dialysis - Left Internal Jugular Vein Blood Culture - Final Methicillin resistant S.aureus 06/08/18 10:00 Dialysis - Left Internal Jugular Vein Blood Culture - Final Methicillin resistant S.aureus labs reviewed Phys Exam - Physical Examination Constitutional: NAD HEENT: PERRLA, moist MMs, sclera anicteric, oral pharynx no lesions Neck: no nodes, no JVD, supple, full ROM Respiratory: no wheezing, no rales, no rhonchi, clear to auscultation bilateral Cardiovascular: RRR, no significant murmur Gastrointestinal: soft, non-tender, no distention, positive bowel sounds Musculoskeletal: no edema, pulses present R groin tunneled cathter in place Neurological: non-focal, normal sensation, moves all 4 limbs Psychiatric: normal affect, A&O x 3 Dx/Plan (1) C. difficile diarrhea Code(s): A04.72 - ENTEROCOLITIS D/T CLOSTRIDIUM DIFFICILE, NOT SPCF RECUR Status: Acute Comment: on IV Flagyl (2) Sepsis Code(s): A41.9 - SEPSIS, UNSPECIFIED ORGANISM Status: Acute (3) Bacteremia due to methicillin resistant Staphylococcus aureus Code(s): R78.81 - BACTEREMIA Status: Acute Comment: IV Vancomycin (4) Hyperkalemia Code(s): E87.5 - HYPERKALEMIA Status: Acute (5) Anemia of renal disease Code(s): D63.1 - ANEMIA IN CHRONIC KIDNEY DISEASE Status: Chronic (6) ESRD (end stage renal disease) on dialysis Code(s): N18.6 - END STAGE RENAL DISEASE; Z99.2 - DEPENDENCE ON RENAL DIALYSIS Status: Chronic Comment: Dialysis per nephrology service (7) GERD (gastroesophageal reflux disease) Code(s): K21.9 - GASTRO-ESOPHAGEAL REFLUX DISEASE WITHOUT ESOPHAGITIS Status: Chronic (8) Obesity (BMI 30.0-34.9) Code(s): E66.9 - OBESITY, UNSPECIFIED Status: Chronic (9) Secondary hyperparathyroidism of renal origin Code(s): N25.81 - SECONDARY HYPERPARATHYROIDISM OF RENAL ORIGIN Status: Chronic - Plan continue antibiotics, out of bed/ambulate, DVT proph w/SCDs michi do CTA tomorrow am before HD to check out aortic root dilatation -: if Nomal-pt can be DCed home w SS vancomycin w HD as an OP -: stable for now. -: cont IV flagyl for CDiff-change to PO on DC -: Renal transplant appt on Friday in [place].am labs * . Review of Systems - Review of Systems Constitutional: weakness, malaise. negative: fever, chills, sweats, other ENT: negative: Ear Pain, Ear Discharge, Nose Pain, Nose Discharge, Nose Congestion, Mouth Pain, Mouth Swelling, Throat Pain, Throat Swelling, Other Respiratory: negative: Cough, Dry, Shortness of Breath, Hemoptysis, SOB with Excertion, Pleuritic Pain, Sputum, Wheezing Cardiovascular: negative: chest pain, palpitations, orthopnea, paroxysmal nocturnal dyspnea, edema, light headedness, other Gastrointestinal: negative: Nausea, Vomiting, Abdominal Pain, Diarrhea, Constipation, Melena, Hematochezia, Other Genitourinary: negative: Dysuria, Frequency, Incontinence, Hematuria, Retention , Other Musculoskeletal: negative: Neck Pain, Shoulder Pain, Arm Pain, Back Pain, Hand Pain, Leg Pain, Foot Pain, Other Neurological: negative: Weakness, Numbness, Incoordination, Change in Speech, Confusion, Seizures, Other - Medications/Allergies Allergies/Adverse Reactions: Allergies Allergy/AdvReac Type Severity Reaction Status Date / Time loracarbef [From Lorabid] Allergy Severe Verified 06/08/18 17:14 Medications: Current Medications Acetaminophen (Tylenol) 650 mg PO Q4H PRN PRN Reason: Headache/Fever or Pain Last Admin: 06/09/18 21:52 Dose: 650 mg Hydrocodone Bitart/Acetaminophen (Moody 5/325) 1 tab PO Q4H PRN PRN Reason: Moderate Pain (4-6) Last Admin: 06/12/18 12:41 Dose: 1 tab Al Hydroxide/Mg Hydroxide (Maalox) 30 ml PO Q6H PRN PRN Reason: Heartburn or Indigestion Alteplase, Recombinant (Cathflo) 2 mg CATH ASDIR [facility] Stop: 06/12/18 21:00 Benzonatate (Tessalon) 100 mg PO Q4H PRN PRN Reason: Cough Bisacodyl (Dulcolax) 10 mg PO DAILYPRN PRN PRN Reason: Constipation Last Admin: 06/09/18 18:01 Dose: 10 mg Calcium Carbonate (Tums) 1,000 mg PO Q4H PRN PRN Reason: Heartburn or Indigestion Clonidine (Catapres) 0.1 mg PO Q4H PRN PRN Reason: Systolic BP > 160 Last Admin: 06/08/18 23:49 Dose: 0.1 mg Cyanocobalamin (Vitamin B-12) 2,000 mcg PO DAILY [facility] Last Admin: 06/12/18 12:39 Dose: 2,000 mcg Famotidine (Pepcid) 20 mg PO Q24HR [facility] Last Admin: 06/11/18 20:33 Dose: 20 mg Guaifenesin (Robitussin Sf) 200 mg PO Q4H PRN PRN Reason: Cough Heparin Sodium (Porcine) (Heparin) 5,000 units SC BID [facility] Last Admin: 06/12/18 12:42 Dose: 5,000 units Hydralazine HCl (Apresoline) 10 mg SLOW IVP Q4H PRN PRN Reason: Systolic BP > 170 Hydralazine HCl (Apresoline) 30 mg PO TID [facility] Last Admin: 06/12/18 12:40 Dose: 30 mg Vancomycin HCl 1.5 gm/ Sodium (Chloride) 300 mls @ 200 mls/hr IVPB WILLCALL [facility] Vancomycin HCl 1.25 gm/ Sodium (Chloride) 250 mls @ 166.667 mls/hr IVPB [facility]CALL [facility] Vancomycin HCl 1 gm/ Device 200 mls @ 200 mls/hr IVPB [facility]CALL [facility] Last Admin: 06/11/18 13:36 Dose: 200 mls Vancomycin HCl 750 mg/ Sodium (Chloride) 250 mls @ 250 mls/hr IVPB [facility]CALL [facility] Metronidazole 500 mg/ Device 100 mls @ 100 mls/hr IVPB Q8HR [facility] Last Admin: 06/12/18 06:08 Dose: 100 mls Loratadine (Claritin) 10 mg PO DAILYPRN PRN PRN Reason: Sinus Symptoms Lorazepam (Ativan) 1 mg PO Q8H PRN PRN Reason: Anxiety/Agitation Last Admin: 06/12/18 12:42 Dose: 1 mg Lorazepam (Ativan) 1 mg SLOW IVP Q4H PRN PRN Reason: Anxiety/Agitation Last Admin: 06/10/18 20:30 Dose: 1 mg Metoprolol Tartrate (Lopressor) 150 mg PO DAILY [facility] Last Admin: 06/12/18 12:39 Dose: 150 mg Miscellaneous Medication (Pharmacy To Dose) 1 each IVPB PRN PRN PRN Reason: Pharmacy to dose Nifedipine (Procardia Xl) 60 mg PO BID [facility] Last Admin: 06/12/18 12:39 Dose: 60 mg Nitroglycerin (Nitrostat) 0.4 mg SL Q5MIN PRN PRN Reason: Chest Pain Hold Vancomycin For (Level >20) 0 each FS .AT DIALYSIS [facility] Non-Formulary Medication (Ferric Citrate [Auryxia]) 630 [facility] Ondansetron HCl (Zofran) 4 mg IVP Q6H PRN PRN Reason: Nausea/Vomiting Last Admin: 06/09/18 09:18 Dose: 4 mg Senna (Senokot) 2 tab PO HSPRN PRN PRN Reason: Constipation Sevelamer Carbonate (Renvela) 2,400 mg PO TID-WM [facility] Last Admin: 06/12/18 12:57 Dose: Not Given Sodium Chloride (Flush - Normal Saline) 10 ml IVF Q12HR [facility] Last Admin: 06/12/18 12:43 Dose: 10 ml Sodium Chloride (Flush - Normal Saline) 10 ml IVF PRN PRN PRN Reason: Saline Flush Tramadol HCl (Ultram) 50 mg PO Q4H PRN PRN Reason: Moderate Pain (4-6)
[2018-06-12] MEDS: Ondansetron HCl/PF 4 MG/2 ML Vial IVP PRN (14:47)
[2018-06-12] MEDS: Vancomycin HCl 1 GM in Premix Bag 1 BAG IVPB SCH (17:01)
--- NOTE | 2018-06-12 18:42 | PDOC.OP ---
Operative Note - Operative Note Operative Note: PROCEDURE: Attempted placement of left internal jugular hemodialysis catheter with ultrasound and fluoroscopic guidance, unsuccessful. Placement of right femoral tunneled hemodialysis catheter with ultrasound guidance. SURGEON: Everette Youssef M.D. DATE OF PROCEDURE: 06/11/2018 PREOPERATIVE DIAGNOSIS: Chronic renal failure. POSTOPERATIVE DIAGNOSIS: Chronic renal failure. HISTORY: Patient with long-standing renal failure on dialysis. He has a developing right basilic fistula which still needs to be transposed. He developed line sepsis and his left tunneled IJ catheter had to be removed. 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 PROCEDURE: After informed consent was obtained and appropriate preoperative antibiotics were administered, the patient was taken to the Operating Room, placed in the supine position and monitored anesthesia care was administered. The neck and chest were prepped and draped in a standard sterile fashion and the patient placed in Trendelenburg position. A sterile ultrasound probe was used to identify the patent compressible right IJ vein which became sclerotic and noncompressible was no visible lumen as it approached the clavicle. Attention was then turned to the left IJ vein which was patent and compressible throughout. This was accessed under direct ultrasound guidance. A wire was threaded through the needle and confirmed by ultrasound to be within the patent compressible vessel but on fluoroscopy the wire had advanced into the left subclavian vein. Under direct fluoroscopic guidance the wire was withdrawn and redirected and was able to be advanced into the innominate vein but it persistently advanced into the right subclavian rather than the superior vena cava. Multiple attempts were made to advance the wire into the inferior vena cava, with repositioning of the shoulders and neck and obtaining a different wire but all of these attempts were unsuccessful. The decision was made to place a tunneled femoral catheter. The groin was prepped and draped in standard sterile fashion and the right femoral vein identified using a sterile ultrasound probe. This was patent and compressible area and local anesthesia was infused to the skin and subcutaneous tissues overlying the vein and the vein was accessed under direct ultrasound guidance with excellent flow of dark venous nonpulsatile blood. I wire was advanced through the needle and confirmed to be in the patent compressible vein. She'll local anesthesia was infused the skin and subcutaneous tissues of the right thigh. 2 skin incisions were made at the access site and at the exit site and the catheter was tunneled from the thigh incision to the groin. The vein was sequentially dilated over the wire following which a dilator and sheath were placed over the wire and the dilator and wire removed leaving the sheath in place. The catheter was tunneled through the sheath which was then split and removed leaving the catheter in place. Both ports easily aspirated dark venous nonpulsatile blood and easily flushed without resistance. Heparin was instilled to the quantity specified on the hub , and the hub was secured to the skin with 3-0 nylon sutures. The skin incision at the groin was closed in two layers with 4-0 Monocryl suture and Dermabond dressings were placed. The skin at the exit site was snugged up around the catheter with 4-0 Monocryl suture and Dermabond was placed there as well. Once the Dermabond was dry, a Biopatch and Tegaderm dressing was placed at the exit site. The patient was taken to Recovery in good condition. Estimated blood loss was minimal. There were no complications. There were no specimens.
[2018-06-12] MEDS ORDERED: diphenhydrAMINE 50 MG/ML VIAL IVP PRN (20:15)
[2018-06-12] MEDS: Famotidine 20 MG TAB PO SCH (20:41)
[2018-06-13] MEDS: metroNIDAZOLE 500 MG in Premix Bag 1 BAG IVPB SCH ×2 (05:21→16:32)
[2018-06-13 05:26] LABS: Anion Gap 20 mmol/L (10-20); BUN (Urea Nitrogen) 40 mg/dL (8.9-20.6); Calc. Creatinine Clearance 12 mL/min (70-130); Calcium 10.2 mg/dL (7.8-10.44); Carbon Dioxide 23 mmol/L (22-29); Chloride 96 mmol/L (98-107); Estimated GFR-MDRD 5; Glucose 100 mg/dL (70-105); Magnesium 2.7 mg/dL (1.6-2.6); Phosphorus 7.3 mg/dL (2.3-4.7); Potassium 4.4 mmol/L (3.5-5.1); Sodium 135 mmol/L (136-145)
[2018-06-13 06:22] LABS: Hemoglobin 11.8 g/dL (14.0-18.0); Mean Corpuscular HGB CONC 34.4 g/dL (32.0-36.0); Mean Corpuscular Hemoglobin 30.4 pg (27.0-31.0); Mean Corpuscular Volume 88.4 fL (78.0-98.0); Mean Platelet Volume 8.9 fL (7.4-10.4); Platelet Count 174 thou/uL (130-400); RBC Distribution Width 16.3 % (11.5-14.5); Red Blood Cell (RBC) Count 3.89 mill/uL (4.70-6.10); White Blood Cell (WBC) Count 5.1 thou/uL (4.8-10.8)
[2018-06-13 06:47] LABS: Band 7 % (5-11); Eosinophils 10 % (0-10); Lymphocytes 24 % (21-51); MDiff Complete? YES; Monocytes 13 % (0-10); Neutrophil 46 % (42-75)
[2018-06-13] MEDS: hydrALAZINE 10 MG TAB PO SCH ×4 (07:53→19:39)
[2018-06-13] MEDS: Sevelamer Carbonate 800 MG TAB PO SCH ×3 (07:56→16:32)
[2018-06-13] MEDS: NIFEdipine XL 60 MG TAB PO SCH ×2 (07:56→19:38)
[2018-06-13] MEDS: Heparin 5,000 UNITS/ML VIAL SC SCH (07:57)
[2018-06-13] MEDS: Cyanocobalamin (Vitamin B-12) 1,000 MCG TAB PO SCH (07:57)
[2018-06-13] MEDS: Metoprolol Tartrate 100 MG TAB PO SCH (07:57)
--- NOTE | 2018-06-13 10:29 | CT ---
CTA OF THE THORAX UTILIZING IV CONTRAST AND 3D REFORMATTED IMAGING AND PE PROTOCOL: INDICATION: Shortness of breath and chest tightness on dialysis. COMPARISON: Prior exam dated 02/08/17. FINDINGS: No central or segmental pulmonary embolus is present. There is a sub-4 mm pulmonary nodule within th e subpleural region on the right lower lobe on image 81 of series 3. This is stable to the comparis on in 2017. The patient's upper abdomen is unremarkable. There is partial visualization of dialysis catheter within the IVC. No definite acute osseous abnormality is evident. IMPRESSION: No central or segmental pulmonary embolus. POS: [facility]
[2018-06-13] MEDS: Ondansetron HCl/PF 4 MG/2 ML Vial IVP PRN (10:37)
[2018-06-13] MEDS ORDERED: Heparin 1,000 UNITS/ML VIAL ONE (11:11)
[2018-06-13 11:41] VITALS: TEMP 98.1
[2018-06-13 13:25] LABS: Vancomycin, Random 42.4 ug/mL (See Comment)
--- NOTE | 2018-06-13 14:37 | PRG ---
DATE OF SERVICE: 06/13/2018 SUBJECTIVE: A 23-year-old gentleman being seen for end-stage renal disease. The patient denies any nausea, vomiting or chest pain. PHYSICAL EXAMINATION: GENERAL: Patient is awake, alert. VITAL SIGNS: Afebrile, pulse 90, breathing 16, blood pressure 115/70. GENERAL APPEARANCE AND MENTAL STATUS: Fair. HEAD/NECK: Normocephalic. Atraumatic. EYES: EOMI. No deformity. EARS: Clear. No ulcers. NOSE: Intact. No lesions. MOUTH: Clear. No discharge. THROAT: Clear. No exudate. LUNGS: Clear. No crackles. CARDIAC: S1, S2. No rub. ABDOMEN: Benign. BS+. GENITALIA/RECTUM: Pimentel absent. BACK/EXTREMITIES: Edema 0+ Ulcer- NEUROLOGICAL: Alert and motor intact. SKIN: Rash- Bruise- LYMPHATICS: Edema- Ulcer- LABORATORY DATA: Hemoglobin 9.8. ASSESSMENT AND RECOMMENDATIONS: 1. Stage chronic disease, on hemodialysis. 2. Hyperkalemia, stable. 3. Anemia, stable. 4. Medications based on glomerular filtration rate are appropriate.
[2018-06-13] MEDS: Lorazepam 1 MG TAB PO PRN (16:57)
--- NOTE | 2018-06-13 17:33 | EKG ---
Test Reason : CODE GREEN Blood Pressure : / mmHG Vent. Rate : 113 BPM Atrial Rate : 113 BPM P-R Int : 132 ms QRS Dur : 084 ms QT Int : 320 ms P-R-T Axes : 025 028 037 degrees QTc Int : 438 ms Sinus tachycardia Voltage criteria for left ventricular hypertrophy Abnormal ECG Confirmed by KARLO RODRIGUEZ (2) on 06/13/2018 5:32:54 PM Referred By: SHORTY Confirmed By:KARLO RODRIGUEZ
[2018-06-13] MEDS: Famotidine 20 MG TAB PO SCH (19:38)
[2018-06-13 19:40] VITALS: BP 142/89
--- NOTE | 2018-06-14 00:07 | DIS ---
DATE OF ADMISSION: 06/08/2018 DATE OF DISCHARGE: 06/13/2018 PRIMARY CARE PHYSICIAN: Dr. Enoch Zeng. DISCHARGE DIAGNOSES: 1. Sepsis. 2. Line sepsis. 3. Clostridium difficile diarrhea. 4. Hypertensive urgency. 5. End-stage renal disease. CONSULTATIONS DURING THIS HOSPITALIZATION: Nephrology, Dr. Arrieta; Infectious Diseases, Dr. Grayson; Gen eral surgery, Dr. Youssef. CONDITION OF PATIENT ON THE DAY OF DISCHARGE: Stable. I assessed Mr. Martínez on the day of discharge. He denies any chest pain or shortness of breath. Vital signs are stable. S1 and S2 are heard, regu lar. Lungs are clear to auscultation bilaterally. HOSPITAL COURSE: Mr. Martínez is a pleasant 23-year-old gentleman who was admitted to [facility] on 06/08/2018 for sepsis secondary to line infection. He was seen by Infectious Dise ase Service, Nephrology Service and General Surgery Service. Blood cultures grew MRSA in 4/4 culture s. He was treated with intravenous vancomycin. At the time of admission, he also had diarrhea. Sto ol studies were positive for Clostridium difficile. He was started on metronidazole, with resolution of diarrhea. He is being discharged home on 10 more days of metronidazole. He will need vancomycin by sliding scale until 07/09/2018. On 06/08/2018, Roderick Salbador was called because of chest pain during dialysis. Chest pain resolved. On 06/10/2018, he underwent removal of tunneled hemodialysis catheter because of line sepsis. On , he underwent attempted placement of left internal jugular hemodialysis catheter with ultraso und and fluoroscopic guidance, which was unsuccessful. He had a right femoral tunneled hemodialysis catheter placed with ultrasound guidance by Surgical Service. He had 2D echocardiogram during this hospitalization, which showed left ventricular ejection fraction of 60%-65%, asymmetric septal hypertrophy with peak LVOT gradient of 63 mmHg, grade I/III diastolic dysfunction and moderately dilated left atrium. He had dilated aortic root measured at 4.5 cm. He w ent on to have CT angiogram of the chest on 06/13/2018, which did not reveal any central or segmental pulmonary embolus. He had a sub 4 mm pulmonary nodule within the subpleural region of the right low er lobe, stable to comparison study from 2017. He is being discharged home in a stable condition. DISCHARGE MEDICATIONS: Vancomycin intravenously by sliding scale with dialysis until 07/09/2018, to be arranged by Dr. Arrieta, metronidazole 500 mg 3 times a day for 10 more days. His home medications w ere resumed as dictated by Dr. Pillai on history and physical note dated 06/08/2018. LABORATORY DATA: On the day of discharge, he has sodium 135, potassium 4.4, blood urea nitrogen 40, creatinine 15.31, white count 5,100, hemoglobin 11.8, and platelet count 174,000. Many thanks for allowing me to participate in your patient's care. Please feel free to contact me wi th any questions or concerns. DISCHARGE DESTINATION: Home. TOTAL AMOUNT OF TIME SPENT COORDINATING THIS DISCHARGE: 33 minutes.
== END 2018-06-13 20:20 | disposition home or self-care (01) | DRG 314 ==
LOC: ERS 07:21 → 2NO 15:54 → IMCU/EMU 06-09 12:21
PROVIDERS: ADMIT Internal Medicine; ATTEND Internal Medicine
PROC: 5A1D70Z Performance of Urinary Filtration, Intermittent, Less than 6 Hours Per Day (ICD-10-PCS; principal; 2018-06-08)
PROC: 0JPT3XZ Removal of Tunneled Vascular Access Device from Trunk Subcutaneous Tissue and Fascia, Percutaneous Approach (ICD-10-PCS; 2018-06-10)
PROC: 05PYX3Z Removal of Infusion Device from Upper Vein, External Approach (ICD-10-PCS; 2018-06-10)
PROC: 0JHL3XZ Insertion of Tunneled Vascular Access Device into Right Upper Leg Subcutaneous Tissue and Fascia, Percutaneous Approach (ICD-10-PCS; 2018-06-11)
PROC: 06H033Z Insertion of Infusion Device into Inferior Vena Cava, Percutaneous Approach (ICD-10-PCS; 2018-06-11)
DX: T80.211A Bloodstream infection due to central venous catheter, initial encounter (principal); N18.6 End stage renal disease; A41.02 Sepsis due to Methicillin resistant Staphylococcus aureus; N17.9 Acute kidney failure, unspecified; A04.72 Enterocolitis due to Clostridium difficile, not specified as recurrent; I13.2 Hypertensive heart and chronic kidney disease with heart failure and with stage 5 chronic kidney disease, or end stage renal disease; N25.81 Secondary hyperparathyroidism of renal origin; T86.12 Kidney transplant failure; M31.0 Hypersensitivity angiitis; E87.5 Hyperkalemia; I16.0 Hypertensive urgency; D63.1 Anemia in chronic kidney disease; Z99.2 Dependence on renal dialysis; I50.9 Heart failure, unspecified; K21.9 Gastro-esophageal reflux disease without esophagitis; E83.39 Other disorders of phosphorus metabolism; F41.8 Other specified anxiety disorders; E66.9 Obesity, unspecified; Y83.8 Other surgical procedures as the cause of abnormal reaction of the patient, or of later complication, without mention of misadventure at the time of the procedure; Y83.0 Surgical operation with transplant of whole organ as the cause of abnormal reaction of the patient, or of later complication, without mention of misadventure at the time of the procedure; Z68.31 Body mass index [BMI] 31.0-31.9, adult
CPT/HCPCS: 36415; 36416; 71045; 71275; 74018; 80048; 80053; 80202; 82550; 82553; 83605; 83630; 83735; 84100; 84484; 85025; 87040; 87045; 87046; 87070; 87077; 87149; 87186; 87205; 87324; 87340; 87449; 87493; 87899; 90935; 93005; 93010; 93306; 94640; 96365; 96367; 96375; A4216; C1752; C1769; G0257; J1200; J1644; J1815; J1885; J1956; J2001; J2060; J2250; J2405; J2704; J2997; J3010; J3370; J7050; J7611

== ENCOUNTER 2018-06-18 18:59 | Emergency (ER) | payer OTHER ==
[2018-06-18] MEDS ORDERED: Bacitracin Zinc 1 Packet ONE (20:20)
== END 2018-06-18 20:37 | disposition home or self-care (01) ==
LOC: ERS 18:59
DX: T82.838A Hemorrhage due to vascular prosthetic devices, implants and grafts, initial encounter (principal); I10 Essential (primary) hypertension; Z79.899 Other long term (current) drug therapy
CPT/HCPCS: 99283

== ENCOUNTER 2018-07-10 16:48 | Emergency (ER) | payer OTHER ==
[~2018-07-10 16:48] MED LIST: Heparin 10,000 UNITS/ 10 ML VIAL ONE
[2018-07-10 20:20] LABS: #Eosinphils 0.8 thou/uL (0.0-0.7); #Monocytes 0.8 thou/uL (0.11-0.59); #Neutrophils 2.9 thou/uL (1.40-6.50); %Basophils 0.7 % (0.0-1.0); %Eosinophils 11.9 % (0.0-10.0); %Lymphocytes 30.7 % (21.0-51.0); %Monocytes 12.2 % (0.0-10.0); %Neutrophils 44.5 % (42.0-75.0); Hemoglobin 10.2 g/dL (14.0-18.0); Mean Corpuscular HGB CONC 33.2 g/dL (32.0-36.0); Mean Corpuscular Hemoglobin 30.8 pg (27.0-31.0); Mean Corpuscular Volume 92.5 fL (78.0-98.0); Platelet Count 197 thou/uL (130-400); Red Blood Cell (RBC) Count 3.32 mill/uL (4.70-6.10); White Blood Cell (WBC) Count 6.5 thou/uL (4.8-10.8)
[2018-07-10 20:28] LABS: INR-International Normal Ratio 1.1; PTT 30.4 SEC (22.9-36.1); Prothrombin Time 14.7 SEC (12.0-14.7)
[2018-07-10 20:41] LABS: ALT (SGPT) Less than 7 U/L (8-55); AST (SGOT) 9 U/L (5-34); Alkaline Phosphatase 68 U/L (40-150); Anion Gap 20 mmol/L (10-20); BUN (Urea Nitrogen) 44 mg/dL (8.9-20.6); Bilirubin, Total 0.5 mg/dL (0.2-1.2); Calc. Creatinine Clearance 0 mL/min (70-130); Calcium 9.8 mg/dL (7.8-10.44); Carbon Dioxide 26 mmol/L (22-29); Chloride 100 mmol/L (98-107); Estimated GFR-MDRD 4; Globulin 3.2 g/dL (2.4-3.5); Glucose 82 mg/dL (70-105); Potassium 5.9 mmol/L (3.5-5.1); Protein, Total 7.2 g/dL (6.0-8.3); Sodium 140 mmol/L (136-145)
[2018-07-10] MEDS ORDERED: Calcium Chloride 1 GM/10 ML Abboject SYRINGE ONE (21:03)
[2018-07-10] MEDS ORDERED: Albuterol Sulfate 1.25 MG/3 ML NEB ONE (21:03)
[2018-07-10] MEDS ORDERED: Sodium Bicarb 50 MEQ/50 ML Abboject 8.4% SYRINGE ONE (21:03)
[2018-07-10] MEDS ORDERED: Albuterol Sulfate 2.5 mg/0.5 ml Neb ONE (21:04)
[2018-07-10] MEDS ORDERED: Albuterol Sulfate 2.5 mg/3 ml Neb ONE (21:13)
[2018-07-10] MEDS ORDERED: Ondansetron HCl/PF 4 MG/2 ML Vial ONE (21:23)
[2018-07-10 23:41] LABS: HBSAg Index 0.26 S/CO (0-0.99); Hep B Surf Ag Non-Reactive S/CO (NonReactive)
== END 2018-07-11 05:03 | disposition home or self-care (01) ==
LOC: ERS 16:48
DX: E87.5 Hyperkalemia (principal); I10 Essential (primary) hypertension; Z99.2 Dependence on renal dialysis; Z79.899 Other long term (current) drug therapy
CPT/HCPCS: 80053; 85025; 85610; 85730; 87340; 90935; 93005; 94640; 94760; 96374; 96375; G0257; J1642; J1644; J2405; J7611

== ENCOUNTER 2018-08-21 00:34 | Emergency (ER) | payer OTHER ==
[2018-08-21 01:43] LABS: #Eosinphils 0.4 thou/uL (0.0-0.7); #Lymphocytes 2.3 thou/uL (1.20-3.40); #Neutrophils 2.8 thou/uL (1.40-6.50); %Basophils 0.8 % (0.0-1.0); %Eosinophils 6.7 % (0.0-10.0); %Lymphocytes 35.3 % (21.0-51.0); %Monocytes 14.7 % (0.0-10.0); %Neutrophils 42.5 % (42.0-75.0); Hemoglobin 9.4 g/dL (14.0-18.0); Mean Corpuscular HGB CONC 32.9 g/dL (32.0-36.0); Mean Corpuscular Hemoglobin 29.7 pg (27.0-31.0); Mean Corpuscular Volume 90.3 fL (78.0-98.0); Mean Platelet Volume 9.9 fL (7.4-10.4); Platelet Count 173 thou/uL (130-400); RBC Distribution Width 14.5 % (11.5-14.5); Red Blood Cell (RBC) Count 3.16 mill/uL (4.70-6.10); White Blood Cell (WBC) Count 6.5 thou/uL (4.8-10.8)
[2018-08-21 02:07] LABS: ALT (SGPT) Less than 7 U/L (8-55); AST (SGOT) 12 U/L (5-34); Albumin 4.2 g/dL (3.5-5.0); Alkaline Phosphatase 73 U/L (40-150); Anion Gap 18 mmol/L (10-20); BUN (Urea Nitrogen) 22 mg/dL (8.9-20.6); Bilirubin, Total 0.5 mg/dL (0.2-1.2); Calc. Creatinine Clearance 0 mL/min (70-130); Calcium 10.6 mg/dL (7.8-10.44); Carbon Dioxide 30 mmol/L (22-29); Chloride 96 mmol/L (98-107); Estimated GFR-MDRD 6; Globulin 3.5 g/dL (2.4-3.5); Glucose 106 mg/dL (70-105); Protein, Total 7.7 g/dL (6.0-8.3); Sodium 140 mmol/L (136-145)
[2018-08-21] MEDS ORDERED: Ondansetron HCl/PF 4 MG/2 ML Vial ONE (02:25)
[2018-08-21] MEDS ORDERED: Ondansetron ODT 8 MG TAB ONE (02:47)
[2018-08-21] MEDS ORDERED: Nitroglycerin 2% Ointment 1 INCH/1 GM Packet ONE (03:03)
[2018-08-21] MEDS ORDERED: hydrALAZINE 20 MG/ML VIAL IM SCH (03:45)
[2018-08-21] MEDS ORDERED: Acetaminophen 325 MG TAB ONE (04:18)
== END 2018-08-21 05:06 | disposition home or self-care (01) ==
LOC: ERS 00:34
DX: J06.9 Acute upper respiratory infection, unspecified (principal); Z79.891 Long term (current) use of opiate analgesic; Z79.899 Other long term (current) drug therapy
CPT/HCPCS: 36416; 80053; 85025; 87804; 93005; J0360; J2405

== ENCOUNTER 2018-08-21 12:21 | Inpatient (IN) | payer OTHER ==
[2018-08-21] MEDS ORDERED: hydrALAZINE 20 MG/ML VIAL SLOW IVP SCH (13:00)
[2018-08-21] MEDS ORDERED: Morphine 4 MG/ML VIAL ONE ×2 (13:33→14:47)
[2018-08-21 14:19] LABS: Hemoglobin 9.1 g/dL (14.0-18.0); Mean Corpuscular HGB CONC 33.1 g/dL (32.0-36.0); Mean Corpuscular Hemoglobin 29.9 pg (27.0-31.0); Mean Corpuscular Volume 90.3 fL (78.0-98.0); Mean Platelet Volume 9.5 fL (7.4-10.4); Platelet Count 142 thou/uL (130-400); RBC Distribution Width 14.5 % (11.5-14.5); Red Blood Cell (RBC) Count 3.04 mill/uL (4.70-6.10); White Blood Cell (WBC) Count 5.8 thou/uL (4.8-10.8)
[2018-08-21 14:47] LABS: ALT (SGPT) Less than 7 U/L (8-55); AST (SGOT) 10 U/L (5-34); Alkaline Phosphatase 72 U/L (40-150); Anion Gap 16 mmol/L (10-20); BUN (Urea Nitrogen) 19 mg/dL (8.9-20.6); Bilirubin, Total 0.5 mg/dL (0.2-1.2); Calc. Creatinine Clearance 0 mL/min (70-130); Calcium 10.1 mg/dL (7.8-10.44); Carbon Dioxide 31 mmol/L (22-29); Chloride 94 mmol/L (98-107); Estimated GFR-MDRD 7; Globulin 3.3 g/dL (2.4-3.5); Glucose 90 mg/dL (70-105); Magnesium 2.1 mg/dL (1.6-2.6); Phosphorus 5.4 mg/dL (2.3-4.7); Potassium 3.8 mmol/L (3.5-5.1); Protein, Total 7.3 g/dL (6.0-8.3); Sodium 137 mmol/L (136-145)
[2018-08-21 14:54] LABS: Anisocytosis SLIGHT = 6-15 cells (100X) (0-5/hpf); Elliptocytes SLIGHT = 2-5 cells (100X) (0-1/hpf); Eosinophils 6 % (0-10); Lymphocytes 12 % (21-51); MDiff Complete? YES; Monocytes 6 % (0-10); Neutrophil 76 % (42-75); PLT Morphology Comment Appears Adequate; Tear Drops SLIGHT = 2-5 cells (100X) (0-1/hpf)
[2018-08-21] MEDS ORDERED: Labetalol HCl 100 MG/20 ML VIAL ONE (15:01)
[2018-08-21] MEDS ORDERED: Ondansetron HCl/PF 4 MG/2 ML Vial ONE (15:42)
[2018-08-21] MEDS ORDERED: niCARdipine 20MG In NaCl 20 MG/200 ML BAG ONE (16:01)
[2018-08-21 16:14] LABS: Troponin I Less than 0.010 ng/mL (< 0.028)
[2018-08-21] MEDS ORDERED: Nitroglycerin 2% Ointment 1 INCH/1 GM Packet ONE (17:53)
[2018-08-21] MEDS ORDERED: Nitroglycerin 2% Ointment 1 INCH/1 GM Packet TOP SCH (18:00)
[2018-08-21] MEDS ORDERED: Senokot 8.6 MG TAB PO PRN (18:00)
[2018-08-21] MEDS ORDERED: Labetalol 100 MG TAB PO SCH (18:00)
[2018-08-21] MEDS ORDERED: Guaifenesin DM 100-10/5 ML UDCUP PO PRN (18:00)
[2018-08-21] MEDS ORDERED: NIFEdipine XL 60 MG TAB PO SCH (18:00)
[2018-08-21] MEDS ORDERED: Labetalol 100 MG TAB ONE (18:21)
[2018-08-21 18:24] LABS: Acetaminophen Less than 6.0 mcg/mL (10.0-30.0); Alcohol Less than 10 mg/dL (Less than 10); Salicylate Less than 8.0 mg/dL (15.0-30.0)
[2018-08-21 18:33] LABS: HBSAg Index 0.25 S/CO (0-0.99); Hep B Surf Ag Non-Reactive S/CO (NonReactive)
[2018-08-21] MEDS: NIFEdipine XL 60 MG TAB PO SCH (20:13)
[2018-08-21] MEDS: Labetalol 100 MG TAB PO SCH (20:14)
[2018-08-21] MEDS: Ondansetron HCl/PF 4 MG/2 ML Vial IVP PRN (20:59)
[2018-08-21] MEDS ORDERED: hydrALAZINE 25 MG TAB PO SCH ×2 (21:00→21:15)
[2018-08-21] MEDS: cloNIDine 0.1 MG TAB PO PRN (21:09)
[2018-08-21] MEDS ORDERED: Morphine 2 MG/ML SYRINGE SLOW IVP SCH (21:15)
--- NOTE | 2018-08-21 23:15 | HP ---
REASON FOR ADMISSION: Hypertensive emergency. HISTORY OF PRESENT ILLNESS: The patient gives history of going to hemodialysis this morning. One hour into hemodialysis, his blood pressure shot up to 230/ 120. They had to stop dialysis as patient had severe headache and was uncomfortable. The patient also complains of multiple joint pains. He has dry cough, but no expectoration. Patient says off late his blood pressure has been elevated. He states he is compliant with his medications. No chest pain or shortness of breath at present. He still has headache, which is generalized. 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 He is back on hemodialysis from 2016 in November. Has both upper extremities dialysis access procedures done, the left upper extremity access is overall occluded. Hypertension, cardiomyopathy. CURRENT MEDICATIONS: The patient states he is on metoprolol 150 mg twice daily , Procardia-XL 60 mg twice daily, Renvela 800 mg 3 times daily, hydralazine 30 mg 3 times daily, vitamin B12 once daily, Ultram p.r.n. for pain, Valium p.r.n. , the patient states he is not taking it now, Zofran p.r.n. ALLERGIES: LORACARBEF. PERSONAL HISTORY: The patient denies using alcohol or drugs. No history of smoking. He ambulates by himself. His mom stays with him. FAMILY HISTORY: Mother has history of pancreatitis and is living. He does not know much about his father. CODE STATUS: FULL. Power of assistant city attorney is his mom. REVIEW OF SYSTEMS: The following complete review of systems was negative, unless otherwise mentioned in the HPI or below: Constitutional: Weight loss or gain, ability to conduct usual activities. Skin: Rash, itching. Eyes: Double vision, pain. ENT/Mouth: Nose bleeding, neck stiffness, pain, tenderness. Cardiovascular: Palpitations, dyspnea on exertion, orthopnea. Respiratory: Shortness of breath, wheezing, cough, hemoptysis, fever or night sweats. Gastrointestinal: Poor appetite, abdominal pain, heartburn, nausea, vomiting, constipation, or diarrhea. Genitourinary: Urgency, frequency, dysuria, nocturia. Musculoskeletal: Pain, swelling. Neurologic/Psychiatric: Anxiety, depression. Allergy/Immunologic: Skin rash, bleeding tendency. PHYSICAL EXAMINATION: GENERAL: The patient is a 23-year-old male who is currently in moderate distress from headache. VITAL SIGNS: Blood pressure on arrival was 231 x 132, currently it is trending down to 15/98. Pulse 90 per minute, respiratory rate 18 per minute, saturating 99% on room air, temperature 98.2 degrees Fahrenheit. NECK: Supple. There is mild elevation in JVD. HEENT: Extraocular muscles intact. Patient currently has some photophobia to light due to headache. No visual disturbances apart from photophobia. Oral cavity mucous membranes are moist. No exudates or congestion. CARDIOVASCULAR: S1, S2 heard. Loud S2, murmur plus. RESPIRATORY: Air entry 2+ bilateral, basal rales plus. ABDOMEN: Soft, bowel sounds heard. No tenderness, rigidity or guarding. EXTREMITIES: No peripheral edema or calf tenderness. VASCULAR SYSTEM: Peripheral pulses 1+ bilateral, no ischemic ulcerations or gangrene. CENTRAL NERVOUS SYSTEM: No gross focal deficits noted. Patient is lethargic, but oriented well. PSYCHIATRIC: The patient's mood is euthymic. No hallucinations or delusions. LABORATORY AND X-RAY FINDINGS: Please note the patient has had a prior echo done in 05/2018, which shows ejection fraction of 60%-65%. There is asymmetric septal hypertrophy with a peak LVOT gradient of 63 mmHg, grade I/III diastolic dysfunction, moderately dilated left atrium, moderate systolic anterior motion of the anterior leaflet. Moderate mitral regurgitation, dilated aortic root measuring at 4.5 cm. White count of 5, H and H 9 and 27, platelet count 142, MCV is 90 with 42% neutrophils, 14% monocytes. Serum bicarbonate 31, BUN 19, creatinine 11.7. Liver enzymes are within normal limits. Phosphorus is 5.4. Magnesium is 2.1. Albumin is 4.0. Troponin I less than 0.01. Plasma alcohol less than 10. Influenza A and B antigens are negative. EKG shows normal sinus rhythm with LVH. CLINICAL IMPRESSION AND PLAN: The patient will be admitted to telemetry for hypertensive emergency, which is getting controlled. He was briefly on Cardene drip after having received labetalol, hydralazine, and morphine in the ER which did not seem to improve his blood pressure initially. He will be slowly tapered and weaned off Cardene after receiving one dose of 100 mg labetalol, Procardia-XL 60 mg and nitro paste 1 inch. The patient is going for hemodialysis now and I have discussed his findings with Dr. Arrieta, [employer]. We will continue patient on labetalol 100 mg 3 times daily along with Procardia-XL 60 mg twice daily. He will also be on hydralazine 50 mg 3 times daily. We will continue his Renvela, vitamin B12 as before. We will continue to closely monitor him on telemetry. The patient likely will need back to back hemodialysis if his blood pressure continues to be high. His medications will be optimized once he has back to back hemodialysis. CODE STATUS: FULL. I have discussed this with the patient. HUAN
[2018-08-21] MEDS: Famotidine 20 MG TAB PO SCH (23:30)
[2018-08-21] MEDS: Docusate 100 MG CAP PO SCH (23:31)
[2018-08-21] MEDS: Heparin 5,000 UNITS/ML VIAL SC SCH (23:33)
[2018-08-22 00:58] VITALS: BMI 31.3
[2018-08-22 05:14] LABS: #Eosinphils 0.2 thou/uL (0.0-0.7); #Lymphocytes 1.6 thou/uL (1.20-3.40); #Monocytes 0.7 thou/uL (0.11-0.59); #Neutrophils 2.6 thou/uL (1.40-6.50); %Basophils 0.8 % (0.0-1.0); %Eosinophils 3.9 % (0.0-10.0); %Lymphocytes 30.3 % (21.0-51.0); %Monocytes 14.1 % (0.0-10.0); Hemoglobin 9.7 g/dL (14.0-18.0); Mean Corpuscular HGB CONC 32.5 g/dL (32.0-36.0); Mean Corpuscular Hemoglobin 29.6 pg (27.0-31.0); Mean Platelet Volume 9.1 fL (7.4-10.4); Platelet Count 134 thou/uL (130-400); RBC Distribution Width 14.8 % (11.5-14.5); Red Blood Cell (RBC) Count 3.28 mill/uL (4.70-6.10); White Blood Cell (WBC) Count 5.1 thou/uL (4.8-10.8)
[2018-08-22] MEDS: Ondansetron HCl/PF 4 MG/2 ML Vial IVP PRN ×2 (05:21→12:38)
[2018-08-22 05:40] LABS: Anion Gap 13 mmol/L (10-20); BUN (Urea Nitrogen) 11 mg/dL (8.9-20.6); Calc. Creatinine Clearance 22 mL/min (70-130); Calcium 10.4 mg/dL (7.8-10.44); Carbon Dioxide 32 mmol/L (22-29); Chloride 97 mmol/L (98-107); Estimated GFR-MDRD 10; Glucose 93 mg/dL (70-105); Potassium 4.4 mmol/L (3.5-5.1); Sodium 138 mmol/L (136-145)
[2018-08-22] MEDS ORDERED: traMADol HCl 50 MG TAB PO SCH (07:15)
[2018-08-22] MEDS: Cyanocobalamin (Vitamin B-12) 1,000 MCG TAB PO SCH (08:57)
[2018-08-22] MEDS: Sevelamer Carbonate 800 MG TAB PO SCH ×3 (08:57→17:23)
[2018-08-22] MEDS: NIFEdipine XL 60 MG TAB PO SCH ×2 (08:59→19:50)
[2018-08-22] MEDS: Labetalol 100 MG TAB PO SCH ×3 (08:59→19:50)
[2018-08-22] MEDS: hydrALAZINE 25 MG TAB PO SCH ×3 (08:59→19:51)
[2018-08-22] MEDS: Docusate 100 MG CAP PO SCH ×2 (08:59→19:57)
[2018-08-22] MEDS: Heparin 5,000 UNITS/ML VIAL SC SCH ×2 (09:03→19:53)
--- NOTE | 2018-08-22 10:34 | CON ---
DATE OF CONSULTATION: 08/21/2018 at 6:00 p.m. in the dialysis center. HISTORY OF PRESENT ILLNESS: A 23-year-old gentleman with a history of end-stage renal disease who pr esented to the hospital with uncontrolled blood pressure. The patient has had headache. Denied any numbness, tingling or weakness. The patient has not taken his blood pressure medicine as he could no t afford them. His blood pressure was in the 230 to 120. The patient can give no further history. PAST MEDICAL HISTORY: hemodialysis, hypertension, and transplant rejection AV fistula, tunnele d dialysis catheter, multiple surgeries on access. HOME MEDICATIONS: List reviewed. HOSPITAL MEDICATIONS: Reviewed. SOCIAL ECONOMIC HISTORY: No alcohol or drug use. FAMILY HISTORY: Negative for ESRD. REVIEW OF SYSTEMS: Unobtainable. Patient is resting. PHYSICAL EXAMINATION: GENERAL: At the time of examination, the patient was in mild to moderate distress. VITAL SIGNS: Afebrile, pulse in the 70s, breathing at 16, blood pressure was 170/110. GENERAL APPEARANCE AND MENTAL STATUS: Fair. HEAD/NECK: Normocephalic. Atraumatic. EYES: EOMI. No deformity. EARS: Clear. No ulcers. NOSE: Intact. No lesions. MOUTH: Clear. No discharge. THROAT: Clear. No exudate. LUNGS: Clear. No crackles. CARDIAC: S1, S2. No rub. ABDOMEN: Benign. BS+. GENITALIA/RECTUM: Pimentel absent. BACK/EXTREMITIES: Edema 0+ Ulcer-. NEUROLOGICAL: Alert and motor intact. SKIN: Rash- Bruise- LYMPHATICS: Edema- Ulcer-. LABORATORY DATA: Show hemoglobin 9.1, potassium was 3.8. ASSESSMENT AND PLAN: 1. Stage 6 chronic kidney disease, we will plan hemodialysis. 2. Hypertension, stable. 3. Anemia, stable. 4. Medication based on GFR are appropriate. We will plan dialysis.
--- NOTE | 2018-08-22 10:59 | PDOC.PN ---
- Subjective Encounter Start Date: 08/22/18 Encounter Start Time: 09:55 Subjective: headache is mostly resolved -: no specific weakness, had HD yesterday -: no sob or chest pain - Objective Resuscitation Status: Resuscitation Status FULL:Full Resuscitation MAR Reviewed: Yes Vital Signs & Weight: Vital Signs (12 hours) Temp Pulse Resp BP BP Pulse Ox 08/22/18 08:59 97 166/96 H 08/22/18 07:52 99 F 97 18 166/96 H 97 08/22/18 06:40 107 H 139/87 08/22/18 03:55 98.9 F 101 H 20 137/84 93 L 08/22/18 00:32 150/88 H 08/21/18 23:31 150/88 H 08/21/18 23:20 98.1 F 102 H 20 150/88 H 96 Weight Weight 244 lb 1.6 oz I&O: 08/21/18 08/22/18 08/23/18 06:59 06:59 06:59 Intake Total 600 Output Total 3200 Balance -2600 Result Diagrams: 08/22/18 04:59 08/22/18 04:59 Phys Exam - Physical Examination HEENT: PERRLA, moist MMs Neck: no JVD, supple Respiratory: no wheezing, no rales Cardiovascular: RRR, no significant murmur Gastrointestinal: soft, non-tender, positive bowel sounds Musculoskeletal: no edema, pulses present Neurological: non-focal, moves all 4 limbs Psychiatric: normal affect, A&O x 3 Dx/Plan (1) Hypertension Code(s): I10 - ESSENTIAL (PRIMARY) HYPERTENSION Status: Chronic Comment: emergency resolving slowly (2) Anemia of renal disease Code(s): D63.1 - ANEMIA IN CHRONIC KIDNEY DISEASE Status: Chronic (3) ESRD (end stage renal disease) on dialysis Code(s): N18.6 - END STAGE RENAL DISEASE; Z99.2 - DEPENDENCE ON RENAL DIALYSIS Status: Chronic Comment: Dialysis per nephrology service (4) GERD (gastroesophageal reflux disease) Code(s): K21.9 - GASTRO-ESOPHAGEAL REFLUX DISEASE WITHOUT ESOPHAGITIS Status: Chronic Qualifiers: Esophagitis presence: esophagitis presence not specified Qualified Code(s) : K21.9 - Gastro-esophageal reflux disease without esophagitis (5) H/O kidney transplant Status: Chronic Comment: not working anymore from 2017 (6) Obesity (BMI 30.0-34.9) Code(s): E66.9 - OBESITY, UNSPECIFIED Status: Chronic - Plan might benefit from short session of HD today -: meds are being optimized for htn -: is on labetalol, hydralazine and procardia xl -: to ambulate in hallway in hallway as tolerated -: dc plan in am * . Review of Systems - Medications/Allergies Allergies/Adverse Reactions: Allergies Allergy/AdvReac Type Severity Reaction Status Date / Time loracarbef [From Lorabid] Allergy Severe Verified 08/22/18 00:55 Medications: Current Medications Acetaminophen (Tylenol) 650 mg PO Q4H PRN PRN Reason: Headache/Fever or Pain Clonidine (Catapres) 0.1 mg PO Q4H PRN PRN Reason: FOR BP > 160/100 Last Admin: 08/21/18 21:09 Dose: 0.1 mg Cyanocobalamin (Vitamin B-12) 2,000 mcg PO DAILY [facility] Last Admin: 08/22/18 08:57 Dose: 2,000 mcg Docusate Sodium (Colace) 100 mg PO BID [facility] Last Admin: 08/22/18 08:59 Dose: Not Given Famotidine (Pepcid) 20 mg PO QPM [facility] Last Admin: 08/21/18 23:30 Dose: 20 mg Guaifenesin/Dextromethorphan (Robitussin Dm) 15 ml PO Q4H PRN PRN Reason: Cough Heparin Sodium (Porcine) (Heparin) 5,000 units SC BID [facility] Last Admin: 08/22/18 09:03 Dose: 5,000 units Hydralazine HCl (Apresoline) 100 mg PO TID [facility] Last Admin: 08/22/18 08:59 Dose: 100 mg Labetalol HCl (Normodyne) 100 mg PO TID [facility] Last Admin: 08/22/18 08:59 Dose: 100 mg Nifedipine (Procardia Xl) 60 mg PO BID [facility] Last Admin: 08/22/18 08:59 Dose: 60 mg Ondansetron HCl (Zofran) 4 mg IVP Q6H PRN PRN Reason: Nausea/Vomiting Last Admin: 08/22/18 05:21 Dose: 4 mg Senna (Senokot) 2 tab PO HSPRN PRN PRN Reason: Constipation Sevelamer Carbonate (Renvela) 2,400 mg PO TID-WM [facility] Last Admin: 08/22/18 08:57 Dose: 2,400 mg Sodium Chloride (Flush - Normal Saline) 10 ml IVF Q12HR [facility] Last Admin: 08/22/18 08:59 Dose: 10 ml Sodium Chloride (Flush - Normal Saline) 10 ml IVF PRN PRN PRN Reason: Saline Flush
[2018-08-22] MEDS: Acetaminophen 325 MG TAB PO PRN ×2 (11:08→15:24)
--- NOTE | 2018-08-22 11:12 | PRG ---
DATE OF SERVICE: 08/22/2018 PHYSICAL EXAMINATION: GENERAL APPEARANCE: Patient is awake, alert. VITAL SIGNS: Afebrile, pulse 77, breathing 16, blood pressure 166/96. HEAD/NECK: Normocephalic. Atraumatic. EYES: EOMI. No deformity. EARS: Clear. No ulcers. NOSE: Intact. No lesions. MOUTH: Clear. No discharge. THROAT: Clear. No exudate. LUNGS: Clear. No crackles. CARDIAC: S1, S2. No rub. ABDOMEN: Benign. BS+. GENITALIA/RECTUM: Pimentel absent. BACK/EXTREMITIES: Edema 0+ Ulcer- NEUROLOGICAL: Alert and motor intact. SKIN: Rash- Bruise- LYMPHATICS: Edema- Ulcer- LABORATORY DATA: Show hemoglobin 9.7, potassium is 4.2. ASSESSMENT AND PLAN: 1. Stage 6 chronic kidney disease, stable. 2. Hypertension, stable. 3. Anemia, stable. 4. Hyperkalemia, stable. 5. Hypertension, noncompliance with medication by pharmacy as it was not refilling. Patient was edu cated about correct doses and literature was shown to the patient.
[2018-08-22] MEDS: cloNIDine 0.1 MG TAB PO PRN ×2 (15:42→22:19)
[2018-08-22] MEDS ORDERED: Morphine 2 MG/ML SYRINGE SLOW IVP SCH ×2 (16:45→22:30)
[2018-08-22] MEDS: Famotidine 20 MG TAB PO SCH (19:51)
[2018-08-23 05:42] LABS: #Eosinphils 0.4 thou/uL (0.0-0.7); #Lymphocytes 1.9 thou/uL (1.20-3.40); #Monocytes 0.6 thou/uL (0.11-0.59); #Neutrophils 2.6 thou/uL (1.40-6.50); %Basophils 0.7 % (0.0-1.0); %Eosinophils 6.6 % (0.0-10.0); %Lymphocytes 35.5 % (21.0-51.0); %Monocytes 10.3 % (0.0-10.0); Hemoglobin 9.8 g/dL (14.0-18.0); Mean Corpuscular HGB CONC 32.9 g/dL (32.0-36.0); Mean Corpuscular Volume 91.2 fL (78.0-98.0); Mean Platelet Volume 9.8 fL (7.4-10.4); Platelet Count 135 thou/uL (130-400); RBC Distribution Width 14.7 % (11.5-14.5); Red Blood Cell (RBC) Count 3.27 mill/uL (4.70-6.10); White Blood Cell (WBC) Count 5.5 thou/uL (4.8-10.8)
[2018-08-23 06:05] LABS: Anion Gap 17 mmol/L (10-20); BUN (Urea Nitrogen) 19 mg/dL (8.9-20.6); Calc. Creatinine Clearance 15 mL/min (70-130); Calcium 10.5 mg/dL (7.8-10.44); Carbon Dioxide 29 mmol/L (22-29); Chloride 94 mmol/L (98-107); Estimated GFR-MDRD 7; Glucose 95 mg/dL (70-105); Potassium 3.8 mmol/L (3.5-5.1); Sodium 136 mmol/L (136-145)
--- NOTE | 2018-08-23 08:06 | RAD ---
PORTABLE CHEST 1 VIEW: Date: 08/23/18 Time: 0516 hours HISTORY: Shortness of breath. FINDINGS/IMPRESSION: Comparison made with exam of 08/02/18. The heart size is borderline. There is mild infiltrate at the left lung base. No pneumothoraces or la rge effusions are seen. A small left pleural effusion cannot be excluded. Findings are suspicious for pneumonia. POS: [facility]
[2018-08-23] MEDS: Sevelamer Carbonate 800 MG TAB PO SCH ×3 (09:05→17:34)
[2018-08-23] MEDS: Cyanocobalamin (Vitamin B-12) 1,000 MCG TAB PO SCH (09:05)
[2018-08-23] MEDS: Heparin 5,000 UNITS/ML VIAL SC SCH ×2 (09:06→21:59)
[2018-08-23] MEDS: hydrALAZINE 25 MG TAB PO SCH ×3 (09:06→21:59)
[2018-08-23] MEDS: Docusate 100 MG CAP PO SCH ×2 (09:06→22:00)
[2018-08-23] MEDS: NIFEdipine XL 60 MG TAB PO SCH ×2 (09:07→21:59)
[2018-08-23] MEDS: Labetalol 100 MG TAB PO SCH ×3 (09:07→21:58)
[2018-08-23] MEDS: Ondansetron HCl/PF 4 MG/2 ML Vial IVP PRN (10:16)
--- NOTE | 2018-08-23 11:02 | PRG ---
DATE OF SERVICE: 08/23/2018 SUBJECTIVE: This is a 23-year-old gentleman, being seen for end-stage renal disease. The patient de nied nausea, vomiting, or chest pain. OBJECTIVE: See above. GENERAL: Patient is awake and alert. VITAL SIGNS: Afebrile, pulse 75, breathing at 16, blood pressure 133/86. GENERAL APPEARANCE AND MENTAL STATUS: Fair. HEAD/NECK: Normocephalic. Atraumatic. EYES: EOMI. No deformity. EARS: Clear. No ulcers. NOSE: Intact. No lesions. MOUTH: Clear. No discharge. THROAT: Clear. No exudate. LUNGS: Clear. No crackles. CARDIAC: S1, S2. No rub. ABDOMEN: Benign. BS+. GENITALIA/RECTUM: Pimentel absent. BACK/EXTREMITIES: Edema 0+, ulcer. NEUROLOGICAL: Alert and motor intact. SKIN: Rash - bruise. LYMPHATICS: Edema - ulcer. LABORATORY DATA: Labs show hemoglobin 9.8. Potassium was 3.8. ASSESSMENT AND RECOMMENDATIONS: 1. Stage 6 chronic kidney disease. Continue hemodialysis. 2. Hypertension, stable. 3. Anemia, stable. 4. Medication based on glomerular filtration rate are appropriate.
--- NOTE | 2018-08-23 11:45 | PDOC.PN ---
- Subjective Encounter Start Date: 08/23/18 Encounter Start Time: 08:45 Subjective: no new complaints -: no fever or sob or chest pain now - Objective Resuscitation Status: Resuscitation Status FULL:Full Resuscitation MAR Reviewed: Yes Vital Signs & Weight: Vital Signs (12 hours) Temp Pulse Resp BP Pulse Ox 08/23/18 09:07 97 08/23/18 09:06 97 08/23/18 07:35 97.8 F 97 20 133/86 99 08/23/18 05:05 98.2 F 08/23/18 04:30 97.7 F 110 H 13 137/77 94 L Weight Weight 236 lb 11.2 oz I&O: 08/22/18 08/23/18 08/24/18 06:59 06:59 06:59 Intake Total 600 1660 Output Total 3200 Balance -2600 1660 Result Diagrams: 08/23/18 05:30 08/23/18 05:30 Phys Exam - Physical Examination HEENT: PERRLA, moist MMs Neck: no JVD, supple Respiratory: no wheezing, no rales Cardiovascular: RRR murmur+ Gastrointestinal: soft, non-tender, positive bowel sounds Musculoskeletal: no edema, pulses present Neurological: non-focal, moves all 4 limbs Psychiatric: A&O x 3 Dx/Plan (1) Hypertension Code(s): I10 - ESSENTIAL (PRIMARY) HYPERTENSION Status: Resolved (2) Anemia of renal disease Code(s): D63.1 - ANEMIA IN CHRONIC KIDNEY DISEASE Status: Chronic (3) ESRD (end stage renal disease) on dialysis Code(s): N18.6 - END STAGE RENAL DISEASE; Z99.2 - DEPENDENCE ON RENAL DIALYSIS Status: Chronic Comment: Dialysis per nephrology service (4) GERD (gastroesophageal reflux disease) Code(s): K21.9 - GASTRO-ESOPHAGEAL REFLUX DISEASE WITHOUT ESOPHAGITIS Status: Chronic Qualifiers: Esophagitis presence: esophagitis presence not specified Qualified Code(s) : K21.9 - Gastro-esophageal reflux disease without esophagitis (5) H/O kidney transplant Status: Chronic Comment: not working anymore from 2017 (6) Obesity (BMI 30.0-34.9) Code(s): E66.9 - OBESITY, UNSPECIFIED Status: Chronic (7) PNA (pneumonia) Code(s): J18.9 - PNEUMONIA, UNSPECIFIED ORGANISM Status: Acute Qualifiers: Pneumonia type: due to unspecified organism Laterality: left Lung location: lower lobe of lung Qualified Code(s): J18.1 - Lobar pneumonia, unspecified organism - Plan levaquin for susp left pna -: hemostable, htn well controlled -: dc pt home, counselled reg med and dietary compliance -: HD on M/W/F * .
[2018-08-23] MEDS ORDERED: Sodium Chloride 0.9% 500 ML IVPB SCH (13:00)
[2018-08-23] MEDS ORDERED: ALPRAZolam 1 MG TAB PO SCH (13:15)
[2018-08-23 15:27] LABS: Reference Lab Name LABCORP
[2018-08-23 15:28] LABS: Ref Lab Test Ordered DRUG SCREENS BLOODS
[2018-08-23] MEDS: Famotidine 20 MG TAB PO SCH (21:58)
[2018-08-24] MEDS: Acetaminophen 325 MG TAB PO PRN (00:48)
[2018-08-24 07:52] VITALS: BP 146/79; TEMP 98.5
[2018-08-24] MEDS: Cyanocobalamin (Vitamin B-12) 1,000 MCG TAB PO SCH (08:00)
[2018-08-24] MEDS: NIFEdipine XL 60 MG TAB PO SCH (08:00)
[2018-08-24] MEDS: Sevelamer Carbonate 800 MG TAB PO SCH ×2 (08:00→12:51)
[2018-08-24] MEDS: Heparin 5,000 UNITS/ML VIAL SC SCH (08:00)
[2018-08-24] MEDS: Docusate 100 MG CAP PO SCH (08:00)
[2018-08-24] MEDS: Labetalol 100 MG TAB PO SCH (08:00)
--- NOTE | 2018-08-24 11:12 | PDOC.PN ---
- Subjective Encounter Start Date: 08/24/18 Encounter Start Time: 09:15 Subjective: getting HD, feels good -: no headache, sob or palp -: wants his EJ iv line removed - Objective Resuscitation Status: Resuscitation Status FULL:Full Resuscitation MAR Reviewed: Yes Vital Signs & Weight: Vital Signs (12 hours) Temp Pulse Resp BP Pulse Ox 08/24/18 07:48 98.5 F 112 H 18 146/79 H 97 08/24/18 04:00 99.0 F 112 H 16 130/70 Weight Weight 248 lb I&O: 08/23/18 08/24/18 08/25/18 06:59 06:59 06:59 Intake Total 1660 1100 Balance 1660 1100 Result Diagrams: 08/23/18 05:30 08/23/18 05:30 Phys Exam - Physical Examination HEENT: PERRLA, moist MMs Neck: no JVD, supple Respiratory: no wheezing, no rales Cardiovascular: RRR murmur+ Gastrointestinal: soft, non-tender, positive bowel sounds Musculoskeletal: no edema, pulses present Neurological: non-focal, moves all 4 limbs Psychiatric: normal affect, A&O x 3 Dx/Plan (1) Hypertension Code(s): I10 - ESSENTIAL (PRIMARY) HYPERTENSION Status: Chronic Qualifiers: Hypertension type: essential hypertension Qualified Code(s): I10 - Essential (primary) hypertension (2) Anemia of renal disease Code(s): D63.1 - ANEMIA IN CHRONIC KIDNEY DISEASE Status: Chronic (3) ESRD (end stage renal disease) on dialysis Code(s): N18.6 - END STAGE RENAL DISEASE; Z99.2 - Status: Chronic Comment: Dialysis per nephrology service (4) GERD (gastroesophageal reflux disease) Code(s): K21.9 - GASTRO-ESOPHAGEAL REFLUX DISEASE WITHOUT ESOPHAGITIS Status: Chronic Qualifiers: Esophagitis presence: esophagitis presence not specified Qualified Code(s) : K21.9 - Gastro-esophageal reflux disease without esophagitis (5) H/O kidney transplant Status: Chronic Comment: not working anymore from 2017 (6) Obesity (BMI 30.0-34.9) Code(s): E66.9 - OBESITY, UNSPECIFIED Status: Chronic (7) PNA (pneumonia) Code(s): J18.9 - PNEUMONIA, UNSPECIFIED ORGANISM Status: Acute Qualifiers: Pneumonia type: due to unspecified organism Laterality: left Lung location: lower lobe of lung Qualified Code(s): J18.1 - Lobar pneumonia, unspecified organism - Plan hemostable -: dc pt home after HD -: counselled reg med compliance * .
[2018-08-24] MEDS: hydrALAZINE 25 MG TAB PO SCH (12:52)
[2018-08-24] MEDS ORDERED: ALPRAZolam 1 MG TAB PO SCH (13:15)
--- NOTE | 2018-08-24 20:30 | PRG ---
DATE OF SERVICE: 08/24/2018 SUBJECTIVE: Patient was seen and examined at bedside and overnight events noted. Patient denies any shortness of breath or chest pain or palpitation. No history of nausea or vomiting or diarrhea or f ever or chills or cramps. OBJECTIVE: GENERAL: This is an obese male in no apparent distress. VITAL SIGNS: Temperature 98.5, pulse 112, respiratory rate 18, blood pressure 146/79. HEENT: Atraumatic, normocephalic. Oral mucosa is moist. NECK: Supple CARDIOVASCULAR: S1, S2 heard. Rate and rhythm regular. RESPIRATORY: Clear to auscultation. GASTROINTESTINAL: Abdomen is soft. MUSCULOSKELETAL: No tenderness, no edema. DERMATOLOGIC: No skin rash. NEUROLOGIC: Alert, awake, and oriented x3. No focal neurologic deficits. Moving all the extremitie s. PSYCHIATRIC: Mood and affect normal. LABORATORY DATA: Potassium is 3.8, BUN is 19, creatinine is 11.6. ASSESSMENT AND PLAN: 1. End-stage renal disease. We will continue on dialysis. 2. Hyperkalemia. 3. Anemia. 4. Hypertension, stable. 5. Edema, controlled. Plan is to continue on dialysis Friday, Friday, and Friday as tolerated.
--- NOTE | 2018-08-25 03:45 | DIS ---
DATE OF ADMISSION: 08/21/2018 DATE OF DISCHARGE: 08/24/2018 DISCHARGE DISPOSITION: To home. PRIMARY DISCHARGE DIAGNOSIS: Hypertensive emergency, resolved. SECONDARY DISCHARGE DIAGNOSES: End-stage renal disease on hemodialysis, chronic anemia, gastroesopha geal reflux disease, prior history of transplant, obesity, left lung pneumonia suspected. PROCEDURES DONE DURING HOSPITALIZATION: Chest x-ray done showed questionable left lung pneumonia. W darcie count of 5, H&H 10 and 29, platelet count 135. Initial BUN and creatinine were . One set of cardiac enzymes are negative. INPATIENT CONSULTS: Dr. Arrieta for nephrology. DISCHARGE PLAN: Patient to follow up with primary care physician in 1 week. DISCHARGE MEDICATIONS: Levaquin 500 mg p.o. q.48 hourly for a total of 4 tablets, Procardia-XL 60 mg twice daily, labetalol 100 mg p.o. three times daily, hydralazine 100 mg p.o. 3 times daily, sevelam er 2400 mg p.o. 3 times daily, vitamin B12 of 2000 mcg p.o. daily. ALLERGIES: LORACARBEF. BRIEF COURSE DURING HOSPITALIZATION: Patient initially was admitted for hypertensive emergency. His blood pressure was 230 x 120 with patient having severe headache and was uncomfortable. There was i nitially placed on Cardene drip and later switched over to oral medications. Medications for blood p ressure were optimized. Patient also had hemodialysis done on Friday and this morning. He has other posada remained hemodynamically stable, ambulating, and eating well prior to discharge. He was psychologist counseling ed with regard to medication compliance and dietary compliance. Dr. Arrieta in 2 weeks and [facility] care physician in 1 week.
== END 2018-08-24 14:15 | disposition home or self-care (01) | DRG 304 ==
LOC: ERS 12:21 → 2NO 15:40
PROVIDERS: ADMIT Internal Medicine; ATTEND Internal Medicine
DX: I16.1 Hypertensive emergency (principal); N18.6 End stage renal disease; J18.9 Pneumonia, unspecified organism; I42.9 Cardiomyopathy, unspecified; I10 Essential (primary) hypertension; K21.9 Gastro-esophageal reflux disease without esophagitis; E66.9 Obesity, unspecified; Z68.31 Body mass index [BMI] 31.0-31.9, adult; D63.1 Anemia in chronic kidney disease; Z99.2 Dependence on renal dialysis; Z79.899 Other long term (current) drug therapy; Z79.891 Long term (current) use of opiate analgesic; Z88.8 Allergy status to other drugs, medicaments and biological substances; F32.9 Major depressive disorder, single episode, unspecified; F41.9 Anxiety disorder, unspecified; E87.5 Hyperkalemia; Z91.14 Patient's other noncompliance with medication regimen
CPT/HCPCS: 36415; 36416; 71045; 80048; 80053; 80202; 80307; 83735; 84100; 84484; 85025; 87340; 87804; 90935; 93005; 96372; A4216; G0257; J0360; J1644; J2270; J2405; J7050

== ENCOUNTER 2018-10-14 15:50 | Emergency (ER) | payer MEDICAID, OTHER ==
[2018-10-14 16:21] LABS: #Eosinphils 0.3 thou/uL (0.0-0.7); #Lymphocytes 1.3 thou/uL (1.20-3.40); #Monocytes 0.5 thou/uL (0.11-0.59); #Neutrophils 2.2 thou/uL (1.40-6.50); %Basophils 0.6 % (0.0-1.0); %Eosinophils 6.2 % (0.0-10.0); %Lymphocytes 30.8 % (21.0-51.0); %Monocytes 11.4 % (0.0-10.0); %Neutrophils 50.9 % (42.0-75.0); Hemoglobin 9.4 g/dL (14.0-18.0); Mean Corpuscular HGB CONC 33.6 g/dL (32.0-36.0); Mean Corpuscular Hemoglobin 30.9 pg (27.0-31.0); Mean Corpuscular Volume 91.9 fL (78.0-98.0); Mean Platelet Volume 9.6 fL (7.4-10.4); Platelet Count 139 thou/uL (130-400); RBC Distribution Width 14.3 % (11.5-14.5); Red Blood Cell (RBC) Count 3.05 mill/uL (4.70-6.10); White Blood Cell (WBC) Count 4.3 thou/uL (4.8-10.8)
[2018-10-14 16:41] LABS: ALT (SGPT) 7 U/L (8-55); AST (SGOT) 16 U/L (5-34); Albumin 4.2 g/dL (3.5-5.0); Alkaline Phosphatase 67 U/L (40-150); Anion Gap 21 mmol/L (10-20); BUN (Urea Nitrogen) 16 mg/dL (8.9-20.6); Bilirubin, Total 0.7 mg/dL (0.2-1.2); Calc. Creatinine Clearance 0 mL/min (70-130); Calcium 10.8 mg/dL (7.8-10.44); Carbon Dioxide 26 mmol/L (22-29); Chloride 95 mmol/L (98-107); Estimated GFR-MDRD 8; Globulin 3.2 g/dL (2.4-3.5); Glucose 73 mg/dL (70-105); Protein, Total 7.4 g/dL (6.0-8.3); Sodium 138 mmol/L (136-145)
[2018-10-14 16:46] LABS: CKMB 1.1 ng/mL (0-6.6); Troponin I 0.012 ng/mL (< 0.028)
== END 2018-10-14 17:45 | disposition home or self-care (01) ==
LOC: ERS 15:50
DX: I10 Essential (primary) hypertension (principal); Z99.2 Dependence on renal dialysis; Z79.899 Other long term (current) drug therapy
CPT/HCPCS: 36415; 80053; 82553; 84484; 85025; 93005

== ENCOUNTER 2018-10-15 12:06 | Outpatient (CLI) | payer MEDICAID, OTHER ==
--- NOTE | 2018-10-15 14:33 | NM ---
VENTILATION PERFUSION LUNG SCAN: History: 23-year-old male with history of shortness of breath and chest pain. FINDINGS: Ventilation study: Patient inhaled 16.9 mCi Xenon 133 gas. Tracer distribution is unremarkable. No significant abnormal trapping. Perfusion lung scan: Patient was injected with 5.6 mCi Technetium 99M MAA intravenously. Multiple spo t images demonstrates no evidence for segmental or larger areas of absolute perfusion defect. IMPRESSION: Unremarkable ventilation perfusion lung scan. Very low probability of an acute pulmonary embolism. POS: [facility]
== END 2018-10-15 12:07 | disposition home or self-care (01) ==
LOC: NM 12:06
PROVIDERS: ATTEND Internal Medicine Cardiovascular Disease
DX: I26.99 Other pulmonary embolism without acute cor pulmonale (principal)
CPT/HCPCS: 78582; A9540; A9558

== ENCOUNTER 2018-10-21 15:46 | Emergency (ER) | payer OTHER ==
--- NOTE | 2018-10-21 18:25 | RAD ---
FRONTAL RADIOGRAPH CHEST 10/21/18 COMPARISON: 08/23/18. HISTORY: Cough. FINDINGS: Mild pulmonary vascular prominence. Stable prominence of the cardiac silhouette. No pneumothorax, ple ural fluid, focal consolidation or alveolar edema. IMPRESSION: No acute findings. No focal consolidation or alveolar edema. POS: [facility]
[2018-10-21 18:55] LABS: Hemoglobin 9.8 g/dL (14.0-18.0); Mean Corpuscular HGB CONC 33.8 g/dL (32.0-36.0); Mean Corpuscular Hemoglobin 31.2 pg (27.0-31.0); Mean Corpuscular Volume 92.2 fL (78.0-98.0); Platelet Count 127 thou/uL (130-400); RBC Distribution Width 14.5 % (11.5-14.5); Red Blood Cell (RBC) Count 3.13 mill/uL (4.70-6.10)
[2018-10-21] MEDS ORDERED: Ondansetron PF 4 MG/2 ML Vial ONE (18:56)
[2018-10-21 19:20] LABS: Elliptocytes SLIGHT = 2-5 cells (100X) (0-1/hpf); Eosinophils 5 % (0-10); Lymphocytes 35 % (21-51); MDiff Complete? YES; Monocytes 14 % (0-10); Neutrophil 44 % (42-75); Ovalocytes SLIGHT = 2-5 cells (100X) (0-1/hpf); PLT Morphology Comment Appears Decreased; Polychromasia SLIGHT = 2-3 cells (100X) (0-2/hpf); Schistocytes SLIGHT = 2-5 cells (100X) (0-1/hpf)
[2018-10-21 19:21] LABS: ALT (SGPT) 10 U/L (8-55); AST (SGOT) 20 U/L (5-34); Albumin 4.3 g/dL (3.5-5.0); Alkaline Phosphatase 69 U/L (40-150); Anion Gap 14 mmol/L (10-20); BUN (Urea Nitrogen) 6 mg/dL (8.9-20.6); Bilirubin, Total 0.7 mg/dL (0.2-1.2); CK (CPK) 237 U/L (30-200); Calc. Creatinine Clearance 0 mL/min (70-130); Calcium 10.4 mg/dL (7.8-10.44); Carbon Dioxide 31 mmol/L (22-29); Chloride 95 mmol/L (98-107); Estimated GFR-MDRD 12; Globulin 3.2 g/dL (2.4-3.5); Glucose 79 mg/dL (70-105); Protein, Total 7.5 g/dL (6.0-8.3); Sodium 137 mmol/L (136-145)
[2018-10-21 19:26] LABS: CKMB 0.6 ng/mL (0-6.6); Potassium 2.9 mmol/L (3.5-5.1); Troponin I Less than 0.010 ng/mL (< 0.028)
[2018-10-21] MEDS ORDERED: Acetaminophen 500 MG TAB ONE (19:42)
[2018-10-21 20:00] LABS: Magnesium 2.1 mg/dL (1.6-2.6)
[2018-10-21] MEDS ORDERED: Lorazepam 2 MG/ML VIAL ONE (20:31)
[2018-10-21] MEDS ORDERED: Potassium Chloride 20 MEQ TAB ONE (20:45)
== END 2018-10-21 21:56 | disposition home or self-care (01) ==
LOC: ERS 15:46
DX: M79.10 Myalgia, unspecified site (principal); F41.9 Anxiety disorder, unspecified; E87.6 Hypokalemia; I10 Essential (primary) hypertension; Z79.899 Other long term (current) drug therapy
CPT/HCPCS: 71045; 80053; 82550; 82553; 83735; 84484; 85025; 87804; 93005; 96374; 96375; J2060; J2405

== ENCOUNTER 2019-03-09 05:36 | Emergency (ER) | payer OTHER ==
[2019-03-09 07:30] LABS: Anion Gap 21 mmol/L (10-20); BUN (Urea Nitrogen) 45 mg/dL (8.9-20.6); Calc. Creatinine Clearance 0 mL/min (70-130); Calcium 9.7 mg/dL (7.8-10.44); Carbon Dioxide 25 mmol/L (22-29); Chloride 98 mmol/L (98-107); Estimated GFR-MDRD 4; Glucose 75 mg/dL (70-105); Potassium 4.7 mmol/L (3.5-5.1); Sodium 139 mmol/L (136-145)
[2019-03-09 07:36] LABS: #Basophils 0.1 thou/uL (0.0-0.2); #Eosinphils 0.5 thou/uL (0.0-0.7); #Lymphocytes 1.4 thou/uL (1.20-3.40); #Monocytes 0.7 thou/uL (0.11-0.59); #Neutrophils 3.1 thou/uL (1.40-6.50); %Basophils 1.4 % (0.0-1.0); %Eosinophils 8.8 % (0.0-10.0); %Lymphocytes 23.8 % (21.0-51.0); %Monocytes 11.9 % (0.0-10.0); %Neutrophils 54.1 % (42.0-75.0); Hemoglobin 10.6 g/dL (14.0-18.0); MDiff Complete? YES; Mean Corpuscular Hemoglobin 30.7 pg (27.0-31.0); Mean Platelet Volume 10.7 fL (7.4-10.4); Platelet Count 79 thou/uL (130-400); Platelet Morphology Comment Appears Decreased; Polychromasia SLIGHT = 2-3 cells (100X) (0-2/hpf); RBC Distribution Width 15.9 % (11.5-14.5); Red Blood Cell (RBC) Count 3.44 mill/uL (4.70-6.10); White Blood Cell (WBC) Count 5.7 thou/uL (4.8-10.8)
--- NOTE | 2019-03-09 07:57 | RAD ---
XR Chest 1 View Portable HISTORY: Chest pain, patient on dialysis COMPARISON: 12/23/2018 FINDINGS: The heart size is normal. There is pulmonary vascular congestion mild basilar infiltrates. No pneumothoraces or large effusions are identified.
[2019-03-09] MEDS ORDERED: cloNIDine 0.2 MG TAB PO SCH (13:00)
[2019-03-09] MEDS ORDERED: hydrALAZINE 25 MG TAB PO SCH (13:00)
[2019-03-09] MEDS ORDERED: NIFEdipine XL 60 MG TAB PO SCH (13:00)
--- NOTE | 2019-03-09 20:51 | CON ---
DATE OF CONSULTATION: 03/09/2019 CONSULTING PHYSICIAN: ER physician. REASON FOR CONSULTATION: End-stage renal disease evaluation and care. REASON FOR ADMISSION: Missing dialysis. HISTORY OF PRESENT ILLNESS: A 24-year-old male with history of hypertension, kidney transplant, and cirrhosis, came to the hospital. He missed dialysis today and due for dialysis tomorrow. The patient is mildly short of breath and was seen during dialysis. PAST MEDICAL HISTORY: Positive for end-stage renal disease, hypertension, noncompliance. PAST SURGICAL HISTORY: History of renal transplant, dialysis access placement. HOME MEDICATION: Reviewed. ALLERGIES: SOCIAL HISTORY: No smoking, alcohol, or illicit drug abuse. FAMILY HISTORY: No history of any kidney disease. REVIEW OF SYSTEMS: CONSTITUTIONAL: Negative for weight loss or gain, ability to conduct usual activities. SKIN: Negative for rash, itching. EYES: Negative for double vision, pain. ENT/MOUTH: Negative for nose bleeding, neck stiffness, pain, tenderness. CARDIOVASCULAR: Negative for palpitations, dyspnea on exertion, orthopnea. RESPIRATORY: Negative for shortness of breath, wheezing, cough, hemoptysis, fever or night sweats. GASTROINTESTINAL: Negative for poor appetite, abdominal pain, heartburn, nausea, vomiting, constipation, or diarrhea. GENITOURINARY: Negative for urgency, frequency, dysuria, nocturia. MUSCULOSKELETAL: Negative for pain, swelling. NEUROLOGIC/PSYCHIATRIC: Negative for anxiety, depression. ALLERGY/IMMUNOLOGIC: Negative for skin rash, bleeding tendency. PHYSICAL EXAMINATION: GENERAL: This is an obese male, in no apparent distress. VITAL SIGNS: Reviewed. HEENT: Atraumatic and normocephalic. NECK: Supple. CV: S1 and S2. Rate and rhythm regular. RESPIRATORY: Clear. GI: Abdomen is soft. MUSCULOSKELETAL: 1+ edema. DERMATOLOGIC: No skin rash. NEUROLOGIC: Alert and awake. PSYCHIATRIC: Mood and affect normal. LABORATORY DATA: Hemoglobin is 10.6. Potassium 4.7, BUN is 45, and creatinine . ASSESSMENT: 1. End-stage renal disease. The patient was seen during dialysis. We will arrange the outpatient dialysis. Plan is to discharge from the ER after dialysis. 2. Edema, controlled. 3. Hypertension, titrate medication. Continue home medication. 4. We will remove fluid. 5. Anemia, mild. PLAN: Plan is to continue on dialysis as tolerated. The patient is seen during dialysis. Job ID: [id number]
== END 2019-03-09 14:40 | disposition home or self-care (01) ==
LOC: ERS 05:36
DX: I12.0 Hypertensive chronic kidney disease with stage 5 chronic kidney disease or end stage renal disease (principal); N18.6 End stage renal disease; J81.1 Chronic pulmonary edema; Z99.2 Dependence on renal dialysis; Z79.899 Other long term (current) drug therapy
CPT/HCPCS: 71045; 80048; 84484; 85025; 93005

== ENCOUNTER 2019-03-30 05:21 | Emergency (ER) | payer OTHER ==
[2019-03-30] MEDS ORDERED: Labetalol HCl 100 MG/20 ML VIAL ONE ×2 (06:00→07:15)
[2019-03-30] MEDS ORDERED: Ondansetron PF 4 MG/2 ML Vial ONE (06:00)
[2019-03-30 06:05] LABS: #Basophils 0.1 thou/uL (0.0-0.2); #Eosinphils 0.7 thou/uL (0.0-0.7); #Lymphocytes 1.4 thou/uL (1.20-3.40); #Monocytes 0.8 thou/uL (0.11-0.59); #Neutrophils 3.3 thou/uL (1.40-6.50); %Eosinophils 11.5 % (0.0-10.0); %Lymphocytes 21.9 % (21.0-51.0); %Monocytes 12.7 % (0.0-10.0); Hemoglobin 8.1 g/dL (14.0-18.0); Mean Corpuscular HGB CONC 33.1 g/dL (32.0-36.0); Mean Corpuscular Hemoglobin 30.9 pg (27.0-31.0); Mean Corpuscular Volume 93.2 fL (78.0-98.0); Mean Platelet Volume 10.2 fL (7.4-10.4); Platelet Count 70 thou/uL (130-400); RBC Distribution Width 15.1 % (11.5-14.5); Red Blood Cell (RBC) Count 2.61 mill/uL (4.70-6.10); White Blood Cell (WBC) Count 6.2 thou/uL (4.8-10.8)
[2019-03-30] MEDS ORDERED: Morphine 4 MG/ML VIAL ONE (06:10)
[2019-03-30] MEDS ORDERED: Nitroglycerin 2% Ointment 1 INCH/1 GM Packet ONE ×2 (06:10→07:15)
[2019-03-30 06:17] LABS: ALT (SGPT) 13 U/L (8-55); AST (SGOT) 17 U/L (5-34); Alkaline Phosphatase 85 U/L (40-150); Anion Gap 17 mmol/L (10-20); BUN (Urea Nitrogen) 19 mg/dL (8.9-20.6); Bilirubin, Total 0.5 mg/dL (0.2-1.2); Calc. Creatinine Clearance 0 mL/min (70-130); Calcium 10.1 mg/dL (7.8-10.44); Carbon Dioxide 30 mmol/L (22-29); Chloride 99 mmol/L (98-107); Estimated GFR-MDRD 7; Globulin 2.6 g/dL (2.4-3.5); Glucose 77 mg/dL (70-105); Potassium 3.9 mmol/L (3.5-5.1); Protein, Total 6.6 g/dL (6.0-8.3); Sodium 142 mmol/L (136-145)
--- NOTE | 2019-03-30 07:48 | RAD ---
1 view chest: CLINICAL HISTORY: Short of breath COMPARISON: None FINDINGS: Bilateral perihilar patchy opacities. Cardiac silhouette is enlarged in size. No obvious effusion or discrete pneumothorax. No acute osseous abnormality. IMPRESSION: Findings favor cardiogenic edema. Recommend clinical correlation as well as imaging follow-up.
[2019-03-30] MEDS ORDERED: Acetaminophen 500 MG TAB ONE (08:03)
== END 2019-03-30 13:25 | disposition home or self-care (01) ==
LOC: ERS 05:21
DX: I16.1 Hypertensive emergency (principal); J81.1 Chronic pulmonary edema; E87.70 Fluid overload, unspecified; I12.9 Hypertensive chronic kidney disease with stage 1 through stage 4 chronic kidney disease, or unspecified chronic kidney disease; N18.9 Chronic kidney disease, unspecified; R11.2 Nausea with vomiting, unspecified; Z99.2 Dependence on renal dialysis; Z79.899 Other long term (current) drug therapy
CPT/HCPCS: 71045; 80053; 83880; 84484; 85025; 90935; 93005; 96374; 96375; 96376; G0257; J2270; J2405

== ENCOUNTER 2019-04-01 09:52 | Inpatient (IN) | payer OTHER ==
[2019-04-01] MEDS ORDERED: Nitroglycerin 2% Ointment 1 INCH/1 GM Packet ONE (09:57)
[2019-04-01] MEDS ORDERED: Nitroglycerin 0.4 MG TAB 1 EACH ONE (09:57)
[2019-04-01] MEDS ORDERED: niCARdipine 20MG In NaCl 20 MG/200 ML BAG ONE (10:05)
[2019-04-01] MEDS ORDERED: Aspirin Chewable 81 MG TAB ONE (10:08)
--- NOTE | 2019-04-01 10:13 | RAD ---
Portable chest: Indications chest pain comparison: 03/30/2019 FINDINGS: Cardiomegaly with vascular congestion. Interstitial and perihilar alveolar edema pattern. IMPRESSION: Above findings not significantly changed from 03/30/2019.
[2019-04-01 10:34] LABS: #Eosinphils 0.9 thou/uL (0.0-0.7); #Lymphocytes 1.1 thou/uL (1.20-3.40); #Monocytes 0.9 thou/uL (0.11-0.59); #Neutrophils 4.9 thou/uL (1.40-6.50); %Basophils 0.5 % (0.0-1.0); %Eosinophils 11.4 % (0.0-10.0); %Lymphocytes 14.5 % (21.0-51.0); %Monocytes 11.6 % (0.0-10.0); Mean Corpuscular HGB CONC 33.3 g/dL (32.0-36.0); Mean Corpuscular Hemoglobin 30.7 pg (27.0-31.0); Mean Corpuscular Volume 92.4 fL (78.0-98.0); Mean Platelet Volume 10.5 fL (7.4-10.4); Platelet Count 81 thou/uL (130-400); RBC Distribution Width 14.9 % (11.5-14.5); Red Blood Cell (RBC) Count 2.61 mill/uL (4.70-6.10); White Blood Cell (WBC) Count 7.9 thou/uL (4.8-10.8)
[2019-04-01 10:53] LABS: ALT (SGPT) 13 U/L (8-55); AST (SGOT) 16 U/L (5-34); Albumin 3.9 g/dL (3.5-5.0); Alkaline Phosphatase 84 U/L (40-150); Anion Gap 19 mmol/L (10-20); BUN (Urea Nitrogen) 22 mg/dL (8.9-20.6); Bilirubin, Total 0.6 mg/dL (0.2-1.2); CK (CPK) 155 U/L (30-200); Calc. Creatinine Clearance 0 mL/min (70-130); Calcium 9.8 mg/dL (7.8-10.44); Carbon Dioxide 26 mmol/L (22-29); Chloride 99 mmol/L (98-107); Estimated GFR-MDRD 6; Globulin 2.3 g/dL (2.4-3.5); Glucose 79 mg/dL (70-105); Potassium 4.2 mmol/L (3.5-5.1); Protein, Total 6.2 g/dL (6.0-8.3); Sodium 140 mmol/L (136-145)
--- NOTE | 2019-04-01 13:32 | CON ---
DATE OF CONSULTATION: REASON FOR CONSULTATION: End-stage renal disease, on maintenance hemodialysis and missed dialysis. HISTORY OF PRESENT ILLNESS: This is a very pleasant 24-year-old gentleman with a history of marijuana use, presented to the hospital with shortness of breath and elevated blood pressure. The patient is not sure, if he took his blood pressure medications. The patient can give no further history. PAST MEDICAL HISTORY: Significant for hypertension, anemia, history of failed renal transplant, history of AV fistula, history of tunneled dialysis catheter, history of cardiomyopathy, history of noncompliance, history of drug use. SOCIAL HISTORY: No alcohol, drug use. FAMILY HISTORY: Negative for ESRD. ALLERGIES: REVIEWED. HOME MEDICATION: List reviewed. REVIEW OF SYSTEMS: A 15-point review of systems was performed and was negative except for positives noted above. GENERAL: HEAD: NECK: No swelling or lumps. NOSE: No epistaxis or discharge. EYES: No diplopia or pain. RESPIRATORY: CARDIOVASCULAR: GASTROINTESTINAL: /PHARMACEUTICAL SALESPERSON: MUSCULOSKELETAL: No joint pain. NEUROPSYCHIATRIC SYSTEMS: No suicidal ideation. No ideation. SKIN: Denies any rash or ulcer. CONSTITUTIONAL: No fever or chills. OBJECTIVE: See above. CONSTITUTIONAL: Awake, alert, in no acute distress. VITAL SIGNS: Afebrile. Pulse 79, breathing 16, blood pressure 149/78. GENERAL APPEARANCE AND MENTAL STATUS: Fair. HEAD/NECK: Normocephalic. Atraumatic. EYES: EOMI. No deformity. EARS: Clear. No ulcers. NOSE: Intact. No lesions. MOUTH: Clear. No discharge. THROAT: Clear. No exudate. LUNGS: Clear. No crackles. CARDIAC: S1, S2. No rub. ABDOMEN: Benign. Bowel sounds positive. GENITALIA/RECTUM: Pimentel absent. BACK/EXTREMITIES: Edema 0+. NEUROLOGICAL: Alert and motor intact. SKIN: LYMPHATICS: LABORATORY DATA: Reviewed. ASSESSMENT AND PLAN: 1. Stage 6 chronic kidney disease, plan dialysis. 2. Hypertension, stable. 3. Anemia, stable. 4. Medication based on GFR, appropriate. Job ID: [id number]
[2019-04-01] MEDS: niCARdipine HCl 25 MG in Sodium Chloride 0.9% 250 ML 240 ML IVPB SCH ×3 (13:48→23:39)
[2019-04-01] MEDS ORDERED: Azithromycin 500 MG in Sodium Chloride 0.9% 250 ML 250 ML IVPB SCH (14:00)
--- NOTE | 2019-04-01 16:40 | PDOC.EVN ---
Event Note - Event Note Event Note: Chart reviewed. Patient seen. Discussed presentation, findings and management with resident Dr. Villareal. Patient presenting with hypertensive urgency. Also is in volume overload. Pt on Cardene drip, seen by nephrology service, undergoing dialysis today.
--- NOTE | 2019-04-01 18:26 | HP ---
SERVICE TIME: 11 o'clock. CHIEF COMPLAINT: Chest pain. HISTORY OF PRESENT ILLNESS: This is a 24-year-old male with history of end-stage renal disease, who presents for evaluation of one day of chest pain. The patient is an end-stage renal dialysis patient, who missed his Friday dialysis. Since missing his scheduled dialysis, he has been complaining about increasing chest pain. It is associated with nausea and vomiting. It has been worsening since it started and is also associated with generalized body pain. When he presented to the ER by EMS, he was found to be hypertensive at 240/140. From the ER, he was started on a Cardene drip at for his hypertensive urgency and he was also started with nitro paste one inch and 0.[address] Arrieta was consulted from the ER who agrees to see him for dialysis and then the hospitalist team was consulted for admission of the patient. FAMILY HISTORY: Endorses hypertension. PAST MEDICAL HISTORY: 1. Hypertension. 2. End-stage renal disease. 3. Right kidney transplant. 4. Status post right and left fistula. 5. Diastolic heart failure. ALLERGIES: LORACARBEF. SOCIAL HISTORY: Endorses recent marijuana use. Denies alcohol or tobacco use. PAST SURGICAL HISTORY: Endorses right kidney transplant and right and left arm fistula. REVIEW OF SYSTEMS: GENERAL: Denies fever, chills, malaise. Endorses weakness. HEENT: Endorses blurry vision. Denies cold, cough, congestion, rhinorrhea, ear pain. CARDIOVASCULAR: Endorses chest pain. Denies edema, syncope. RESPIRATION: Denies cough, shortness of breath, or pleurisy. GI: Endorses nausea. Denies abdominal pain, diarrhea, or constipation. : Denies producing urine. SKIN: Denies rash or itch. PHYSICAL EXAMINATION: VITAL SIGNS: Blood pressure 181/97, respirations 28, O2 is 100% on room air, pulse 95, temperature 98.6. GENERAL: Appears in discomfort. Well-developed male, who appears stated age. HEENT: Normocephalic. Moist mucosal membrane. Trachea midline. Hearing and vision grossly intact. RESPIRATION: Clear to auscultation bilaterally, but with mild crackles. No wheezes or rhonchi. CV: Regular rate and rhythm with no obvious murmurs, gallops, or rubs. GI: Normoactive, soft. Nontender to palpation. DERM: No rash, skin break, or lesion noted. EXTREMITIES: No pitting edema. NEUROLOGIC: Moves all limb with no noted focal deficit. Alert and oriented x3 and cooperative. PERTINENT LABORATORY DATA: WBC 7.9, hemoglobin 8, MCV 92.4, platelet 81, neutrophils 62. CMP; sodium 140, potassium 4.2, chloride 99, bicarb 26, BUN 22, creatinine 12.83, GFR 6, glucose 85, calcium 9.8. Liver function; bilirubin 0.6, AST 16, ALT 13, alk phos 84. Cardiac enzymes; troponin less than 0.01. BNP 1253. IMAGING STUDIES: Chest x-ray findings; cardiomegaly with vascular congestion was noted on independent review of chest x-ray. ASSESSMENT AND PLAN: 1. Chest pain. It is likely secondary to fluid overload. The patient with history of missed dialysis and evidence of fluid overload on both imaging and BMP. Plan is to consult Nephrology for dialysis. 2. Sepsis likely secondary to respiratory source. The patient was noted to be tachypneic up to 25, tachycardiac up to 102 and with complaint of chest pain. There is a concern that he may be septic secondary to URI source. At this time, chest x-ray due to pulmonary congestion, will be difficult rule out a pulmonary source. We will plan to start him on antibiotics. 3. Hypertensive urgency. The patient is currently on Cardene drip. There, we will attempt to wean him off Cardene. If that is the case, then he will be admitted to tele but if not, then he will be admitted to ICU. At this time, his hypertensive urgency has improved with his most recent blood pressure of 190/99. 4. End-stage renal disease. The patient has known history of end-stage renal disease. that to be the case, plan is to consult with Dr. Arrieta for management of dialysis. We will avoid fluid overloading the patient while he is here. 5. History of hypertension. The patient is currently hypertensive above goal. Plan is to restart his home medication and titrate as needed. Heart dysfunction seen on echo in 2018. The patient has 1/3 diastolic dysfunction. We will plan to monitor his fluid status to prevent him from going to either fluid overload or being volume depleted. Job ID: [id number]
[2019-04-01] MEDS ORDERED: Lorazepam 2 MG/ML VIAL SLOW IVP SCH (20:15)
[2019-04-02] MEDS: Ondansetron PF 4 MG/2 ML Vial SLOW IVP PRN ×3 (01:13→21:25)
[2019-04-02] MEDS ORDERED: Morphine 2 MG/ML SYRINGE SLOW IVP SCH (02:45)
[2019-04-02] MEDS: niCARdipine HCl 25 MG in Sodium Chloride 0.9% 250 ML 240 ML IVPB SCH ×3 (03:32→11:15)
--- NOTE | 2019-04-02 05:19 | PDOC.EVN ---
Event Note - Event Note Event Note: pt complaining of persistent abdominal pain, ct abdomen and pelvis ordered, will follow results
[2019-04-02] MEDS ORDERED: Morphine 4 MG/ML VIAL SLOW IVP SCH ×2 (05:45→08:15)
--- NOTE | 2019-04-02 07:58 | CT ---
CT ABDOMEN AND PELVIS WITHOUT IV CONTRAST: INDICATIONS: History of abdominal pain since 0230 hours this morning with nausea after dialysis treatment. COMPARISON: Prior CT aortic dissection protocol dated 12/23/2018. CT chest, abdomen, and pelvis dated 04/13/2017. FINDINGS: There is new patchy reticulonodular opacities within the right lower lobe. One of the more prominent nodules is seen, measuring 7.5 mm, on image 8 of series 2. This is new from the most recent compari son in November 2018. There are areas of subsegmental volume loss within both lower lobes, left great er than right. There is scattered edema surrounding the pancreas within the retroperitoneum. There is free fluid emerson rrounding the spleen. There is prominent mesenteric soft tissue edema surrounding multiple loops of small bowel. The small bowel is nondilated. The picayune kidneys are atrophic with small cysts. There are tiny nonobstructing calculi within the r ight kidney. No hydronephrosis is evident. There is a normal appendix in the right lower quadrant. There is an infarcted right renal transplant kidney within the right hemipelvis. There is mild free fluid in the pelvis. The colon demonstrates a mild amount of retained stool and bowel gas. No definite acute osseous abnormality is evident. There is diffuse sclerosis of the bones, likely re lated to some renal osteodystrophy. IMPRESSION: 1. Limitation of examination due to lack of intravenous contrast. There is extensive edema surround ing the pancreas with some edema also seen diffusely throughout the mesentery of the small bowel. Fi ndings may reflect sequela of an acute pancreatitis. Recommend correlation with the clinical examina tion and laboratory evaluation. There is a mild amount of free fluid within the abdomen and pelvis. 2. Reticulonodular opacities of the right lower lobe may reflect sequela of atelectasis; however, pn eumonia within the right lower lobe or aspiration cannot be entirely excluded. There are areas of emerson bsegmental atelectasis involving both lower lobes, left greater than right. 3. Atrophic kidneys with an infarcted right pelvic renal transplant kidney. 4. Other chronic findings as above. POS: [facility]
[2019-04-02] MEDS: Pantoprazole 40 MG VIAL IVP SCH (08:15)
[2019-04-02] MEDS ORDERED: Fentanyl 100 MCG/2 ML VIAL SLOW IVP SCH ×2 (08:30→20:00)
[2019-04-02 09:20] LABS: #Eosinphils 0.5 thou/uL (0.0-0.7); #Lymphocytes 1.2 thou/uL (1.20-3.40); #Monocytes 0.4 thou/uL (0.11-0.59); #Neutrophils 3.8 thou/uL (1.40-6.50); %Basophils 0.7 % (0.0-1.0); %Eosinophils 8.2 % (0.0-10.0); %Lymphocytes 19.6 % (21.0-51.0); %Monocytes 6.2 % (0.0-10.0); %Neutrophils 65.4 % (42.0-75.0); Hemoglobin 9.5 g/dL (14.0-18.0); Mean Corpuscular HGB CONC 32.9 g/dL (32.0-36.0); Mean Corpuscular Hemoglobin 30.3 pg (27.0-31.0); Mean Platelet Volume 9.2 fL (7.4-10.4); Platelet Count 93 thou/uL (130-400); RBC Distribution Width 14.8 % (11.5-14.5); Red Blood Cell (RBC) Count 3.14 mill/uL (4.70-6.10); White Blood Cell (WBC) Count 5.9 thou/uL (4.8-10.8)
[2019-04-02] MEDS: Labetalol HCl 100 MG/20 ML VIAL SLOW IVP SCH ×2 (09:22→11:14)
[2019-04-02 09:37] LABS: Phosphorus 2.8 mg/dL (2.3-4.7)
[2019-04-02 09:39] LABS: ALT (SGPT) 12 U/L (8-55); AST (SGOT) 15 U/L (5-34); Alkaline Phosphatase 85 U/L (40-150); Anion Gap 13 mmol/L (10-20); BUN (Urea Nitrogen) 11 mg/dL (8.9-20.6); Bilirubin, Total 0.7 mg/dL (0.2-1.2); Calc. Creatinine Clearance 22 mL/min (70-130); Carbon Dioxide 29 mmol/L (22-29); Chloride 101 mmol/L (98-107); Estimated GFR-MDRD 12; Globulin 2.8 g/dL (2.4-3.5); Glucose 98 mg/dL (70-105); Lipase 18 U/L (8-78); Potassium 3.4 mmol/L (3.5-5.1); Protein, Total 6.8 g/dL (6.0-8.3); Sodium 140 mmol/L (136-145)
--- NOTE | 2019-04-02 10:25 | PRG ---
DATE OF SERVICE: 04/02/2019 SUBJECTIVE: A 24-year-old gentleman being seen for end-stage renal disease. The patient denied any nausea, vomiting, or chest pain. OBJECTIVE: GENERAL: The patient is awake and alert. VITAL SIGNS: Afebrile. Pulse 75, breathing 16, blood pressure was 159/85. GENERAL APPEARANCE AND MENTAL STATUS: Fair. HEAD/NECK: Normocephalic. Atraumatic. EYES: EOMI. No deformity. EARS: Clear. No ulcers. NOSE: Intact. No lesions. MOUTH: Clear. No discharge. THROAT: Clear. No exudate. LUNGS: Clear. No crackles. CARDIAC: S1, S2. No rub. ABDOMEN: Benign. Bowel sounds positive. GENITALIA/RECTUM: Pimentel absent. BACK/EXTREMITIES: Edema 0+. NEUROLOGICAL: Alert and motor intact. SKIN: LYMPHATICS: LABORATORY DATA: Reviewed. ASSESSMENT AND PLAN: 1. Stage 6 chronic kidney disease, plan dialysis per schedule. 2. Hypertension, stable. 3. Anemia, stable. 4. Medication based on GFR, appropriate. Job ID: [id number]
[2019-04-02] MEDS: Meperidine HCl/PF 25 MG/ML VIAL SLOW IVP PRN ×2 (12:15→16:26)
[2019-04-02] MEDS ORDERED: Azithromycin 250 MG in Syringe 0 ML IVPB SCH (12:30)
[2019-04-02] MEDS ORDERED: Labetalol HCl 100 MG/20 ML VIAL SLOW IVP SCH ×2 (13:00→18:00)
[2019-04-02] MEDS ORDERED: Azithromycin 250 MG in Sodium Chloride 0.9% 250 ML 250 ML IVPB SCH (14:00)
[2019-04-02] MEDS ORDERED: niCARdipine HCl 50 MG in Sodium Chloride 0.9% 250 ML 230 ML IVPB SCH (14:15)
--- NOTE | 2019-04-02 15:37 | PDOC.PN ---
- Subjective Encounter Start Date: 04/02/19 Encounter Start Time: 15:34 Subjective: complained to sever abd pain this morning needing narcotics -: now better.no N/V/D/fever.no chest pain - Objective MAR Reviewed: Yes Vital Signs & Weight: Vital Signs (12 hours) Temp Pulse BP Pulse Ox 04/02/19 13:05 123 H 151/105 H 04/02/19 13:00 98.4 F 04/02/19 11:14 113 H 145/81 H 04/02/19 09:22 113 H 145/81 H 04/02/19 08:00 98.3 F 98 Weight Weight 207 lb 3.752 oz Most Recent Monitor Data Heart Rate from ECG 111 NIBP 164/94 NIBP BP-Mean 117 Respiration from ECG 10 SpO2 95 I&O: 04/01/19 04/02/19 04/03/19 06:59 06:59 06:59 Intake Total 1586 593 Balance 1586 593 Result Diagrams: 04/02/19 08:59 04/02/19 08:59 Additional Labs: Laboratory Tests 04/01/19 04/01/19 04/02/19 10:11 10:11 08:59 Creatinine 12.83 H 7.16 H B-Natriuretic Peptide 1253.2 H Amylase Lipase 18 04/02/19 08:59 Creatinine B-Natriuretic Peptide Amylase 42.0 Lipase Radiology Reviewed by me: Yes (CT -ac pancreatitis per radiologist) Phys Exam - Physical Examination Constitutional: NAD HEENT: PERRLA, moist MMs, sclera anicteric, oral pharynx no lesions Neck: no nodes, no JVD, supple, full ROM Respiratory: no wheezing, no rales, no rhonchi, clear to auscultation bilateral Cardiovascular: RRR, no significant murmur, no rub Gastrointestinal: soft, no distention, positive bowel sounds no guarding/rigidity Musculoskeletal: no edema, pulses present Neurological: non-focal, normal sensation, moves all 4 limbs Psychiatric: normal affect, A&O x 3 Skin: no rash Dx/Plan (1) Hypertensive urgency Code(s): I16.0 - HYPERTENSIVE URGENCY Status: Acute Comment: on NG drip. will restart home meds and add prn antihypertensives to taper NG drip off (2) Acute pancreatitis Code(s): K85.90 - ACUTE PANCREATITIS WITHOUT NECROSIS OR INFECTION, UNSP Status: Acute Comment: on CT but amylase /lipase normal. NPo for 24 hrs and reassess (3) Anemia of renal disease Code(s): D63.1 - ANEMIA IN CHRONIC KIDNEY DISEASE Status: Chronic Comment: monitor H/H (4) ESRD (end stage renal disease) on dialysis Code(s): N18.6 - END STAGE RENAL DISEASE; Z99.2 - DEPENDENCE ON RENAL DIALYSIS Status: Chronic Comment: Dialysis per nephrology service (5) GERD (gastroesophageal reflux disease) Code(s): K21.9 - GASTRO-ESOPHAGEAL REFLUX DISEASE WITHOUT ESOPHAGITIS Status: Chronic Qualifiers: Esophagitis presence: esophagitis presence not specified Qualified Code(s) : K21.9 - Gastro-esophageal reflux disease without esophagitis Comment: add PPI (6) H/O kidney transplant Status: Chronic Comment: not working anymore from 2017 (7) Hypertension Code(s): I10 - ESSENTIAL (PRIMARY) HYPERTENSION Status: Chronic Qualifiers: Hypertension type: essential hypertension Qualified Code(s): I10 - Essential (primary) hypertension (8) Obesity (BMI 30.0-34.9) Code(s): E66.9 - OBESITY, UNSPECIFIED Status: Chronic (9) Secondary hyperparathyroidism of renal origin Code(s): N25.81 - SECONDARY HYPERPARATHYROIDISM OF RENAL ORIGIN Status: Chronic Comment: restart Renvela - Plan DVT proph w/SCDs am labs -: Supportive care as above -: better BP control -: Hemodialysis per schedule * . Review of Systems - Review of Systems Constitutional: weakness. negative: fever, chills, sweats, malaise, other ENT: negative: Ear Pain, Ear Discharge, Nose Pain, Nose Discharge, Nose Congestion, Mouth Pain, Mouth Swelling, Throat Pain, Throat Swelling, Other Respiratory: negative: Cough, Dry, Shortness of Breath, Hemoptysis, SOB with Excertion, Pleuritic Pain, Sputum, Wheezing Cardiovascular: negative: chest pain, palpitations, orthopnea, paroxysmal nocturnal dyspnea, edema, light headedness, other Gastrointestinal: Abdominal Pain. negative: Nausea, Vomiting, Diarrhea, Constipation, Melena, Hematochezia, Other Genitourinary: negative: Dysuria, Frequency, Incontinence, Hematuria, Retention , Other Musculoskeletal: negative: Neck Pain, Shoulder Pain, Arm Pain, Back Pain, Hand Pain, Leg Pain, Foot Pain, Other Skin: negative: Rash, Lesions, Ford, Bruising, Other Neurological: negative: Weakness, Numbness, Incoordination, Change in Speech, Confusion, Seizures, Other - Medications/Allergies Allergies/Adverse Reactions: Allergies Allergy/AdvReac Type Severity Reaction Status Date / Time loracarbef [From Lorabid] Allergy Severe Verified 04/01/19 13:08 Medications: Current Medications Nicardipine HCl 50 mg/ Sodium (Chloride) 250 mls @ 0 mls/hr IVPB INF [facility] Last Admin: 04/02/19 14:45 Dose: 250 mls Labetalol HCl (Normodyne) 10 mg SLOW IVP Q6HR [facility]ANNA Meperidine HCl (Demerol) 12.5 mg SLOW IVP Q4H PRN PRN Reason: Pain Last Admin: 04/02/19 12:15 Dose: 12.5 mg Ondansetron HCl (Zofran) 4 mg SLOW IVP Q4H PRN PRN Reason: Nausea/Vomiting Last Admin: 04/02/19 09:04 Dose: 4 mg Pantoprazole Sodium (Protonix) 40 mg IVP DAILY [facility] Last Admin: 04/02/19 08:15 Dose: 40 mg Sodium Chloride (Flush - Normal Saline) 10 ml IVF Q12HR [facility] Last Admin: 04/02/19 09:14 Dose: 10 ml Sodium Chloride (Flush - Normal Saline) 10 ml IVF PRN PRN PRN Reason: Saline Flush
[2019-04-02] MEDS: Sevelamer Carbonate 800 MG TAB PO SCH (16:36)
[2019-04-02] MEDS: Labetalol 100 MG TAB PO SCH (20:03)
[2019-04-02] MEDS: cloNIDine 0.2 MG TAB PO SCH (20:04)
[2019-04-02] MEDS: hydrALAZINE 25 MG TAB PO SCH (20:04)
[2019-04-02] MEDS ORDERED: Non-Formulary Item 1 EACH (Hydralazine Hcl [Hydralazine Hcl] 100 MG) PO SCH (21:00)
--- NOTE | 2019-04-02 21:54 | CON ---
DATE OF CONSULTATION: 04/02/2019 HISTORY OF PRESENT ILLNESS: Mr. Martínez is a 24-year-old male admitted to the critical care unit. He has history of end-stage renal disease, status post renal transplantation. His transplant apparently has failed, and he is a hemodialysis patient again. Apparently, he missed Friday dialysis. He presented with chest tightness, nausea, and vomiting. He did not feel like he was able to keep his hypertension medications down. His blood pressure was found to be over 240 systolic and 140 diastolic. He is admitted, started on a Cardene drip, and says he is feeling better. He is being dialyzed when I evaluated him. PAST MEDICAL HISTORY: Remarkable for hypertension, multiple vascular access procedures, diastolic heart failure. SOCIAL HISTORY: He is a nonsmoker, nondrinker. He does smoke marijuana. ALLERGIES: HE REPORTS ALLERGIC TO LORACARBEF. FAMILY HISTORY: Negative for lung disease in early age. REVIEW OF SYSTEMS: Ten point review of systems completed, otherwise negative. PHYSICAL EXAMINATION: GENERAL: Mr. Martínez is a 24-year-old male. VITAL SIGNS: Blood pressure is 161/90, heart rate is 113, respiratory rate is in the teens, oximetry is 95%. HEENT: Pupils react equally. Sclerae are anicteric. Extraocular movements are intact. NECK: Supple. No lymphadenopathy. LUNGS: Clear. HEART: Regular rhythm. S1 and S2 are normal. ABDOMEN: Soft and nontender. EXTREMITIES: Without clubbing, cyanosis, or edema. LABORATORY DATA: White count 5.9, hemoglobin 9.5, platelets 93,000. Sodium 140 , potassium 3.4, chloride 101, bicarb 29, BUN 11, creatinine 7.16. IMPRESSION: 1. Hypertension with chest tightness and shortness of breath associated with that. 2. Status post abdomen and pelvis CT done on admission showing an inflamed pancreas, but with normal pancreatic enzymes and a nontender abdomen at this time. 3. Atelectasis in his right lower lobe seen on chest radiograph. I doubt he has pneumonia. 4. Status post transplant kidney with an infarcted right pelvic renal transplant kidney seen on CT. 5. Status post missed dialysis session. PLAN: Continue supportive care. TIME SPENT: This is a 50-minute consult, with greater than 50% of time spent on the unit coordinating care. Job ID: [id number] [facility]
[2019-04-03] MEDS: hydrALAZINE 20 MG/ML VIAL SLOW IVP PRN ×2 (01:37→15:06)
[2019-04-03] MEDS: cloNIDine 0.1 MG TAB PO PRN (02:36)
[2019-04-03] MEDS: Sevelamer Carbonate 800 MG TAB PO SCH ×3 (08:58→16:45)
[2019-04-03] MEDS: hydrALAZINE 25 MG TAB PO SCH ×3 (08:58→20:03)
[2019-04-03] MEDS: Labetalol 100 MG TAB PO SCH ×2 (08:58→20:03)
[2019-04-03] MEDS: cloNIDine 0.2 MG TAB PO SCH ×3 (08:59→20:02)
[2019-04-03] MEDS: Pantoprazole 40 MG VIAL IVP SCH (08:59)
[2019-04-03] MEDS ORDERED: NIFEdipine XL 60 MG TAB PO SCH (09:45)
[2019-04-03] MEDS ORDERED: Fentanyl 100 MCG/2 ML VIAL SLOW IVP PRN (09:48)
[2019-04-03] MEDS: Ondansetron PF 4 MG/2 ML Vial SLOW IVP PRN ×3 (09:55→20:03)
--- NOTE | 2019-04-03 10:49 | PRG ---
DATE OF SERVICE: 04/03/2019 SUBJECTIVE: Patient was seen and examined at bedside and overnight events noted. Patient denies any shortness of breath or chest pain or palpitation. No history of nausea or vomiting or diarrhea or fever or chills or cramps. OBJECTIVE: GENERAL: This is a morbidly obese male, in no apparent distress. VITAL SIGNS: Temperature 98.3. Heart rate 88. Respiratory rate 12. Blood pressure 179/112. HEENT: Atraumatic, normocephalic. Oral mucosa is moist NECK: Supple. CARDIOVASCULAR: S1, S2 heard. Rate and rhythm regular. RESPIRATORY: Clear to auscultation. GASTROINTESTINAL: Abdomen is soft. MUSCULOSKELETAL: No tenderness. No edema. DERMATOLOGIC: No skin rash. NEUROLOGIC: Alert and awake and oriented X3. No focal neurologic deficits. Moving all the extremities. PSYCHIATRIC: Mood and affect normal. LABORATORY DATA: Potassium 3.4, BUN is 11, creatinine is 7.1. ASSESSMENT AND PLAN: 1. End-stage renal disease, continue dialysis as tolerated on Friday, Friday, and Friday. 2. Hypertension, stable. 3. Anemia. We will monitor hemoglobin. 4. Edema. We will remove fluid with dialysis as tolerated. 5. Hypokalemia, mild. Monitor. Continue dialysis as tolerated. Job ID: [id number]
--- NOTE | 2019-04-03 12:13 | PRG ---
DATE OF SERVICE: 04/03/2019 SUBJECTIVE: Estee Martínez says he is feeling better. OBJECTIVE: VITAL SIGNS: Blood pressure is still intermittently elevated. Blood pressure 179/112, heart rate is 88, and respiratory rate in the 20s. GENERAL: He is actually in no distress. LUNGS: Clear. HEART: Regular rhythm. ABDOMEN: Soft and nontender. EXTREMITIES: Without edema. LABORATORY DATA: White count 5.9 yesterday. He has no CBC today. There is no electrolytes today. IMPRESSION AND PLAN: 1. Poorly controlled hypertension. 2. End-stage renal disease. 3. 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 4. Pancreatic inflammation on CT without elevation of pancreatic enzymes. 5. History of hypertension. 6. History of multiple vascular access procedures. 7. Diastolic heart failure. Overall, he appears to be stable, but needs better blood pressure control. Continue to follow. Job ID: [id number]
[2019-04-03 12:31] LABS: #Eosinphils 0.9 thou/uL (0.0-0.7); #Lymphocytes 1.5 thou/uL (1.20-3.40); %Basophils 0.6 % (0.0-1.0); %Eosinophils 12.2 % (0.0-10.0); %Lymphocytes 20.2 % (21.0-51.0); %Monocytes 13.8 % (0.0-10.0); %Neutrophils 53.2 % (42.0-75.0); Hemoglobin 7.7 g/dL (14.0-18.0); Mean Corpuscular Hemoglobin 30.6 pg (27.0-31.0); Mean Corpuscular Volume 92.8 fL (78.0-98.0); Mean Platelet Volume 9.9 fL (7.4-10.4); Platelet Count 86 thou/uL (130-400); RBC Distribution Width 14.9 % (11.5-14.5); Red Blood Cell (RBC) Count 2.51 mill/uL (4.70-6.10); White Blood Cell (WBC) Count 7.5 thou/uL (4.8-10.8)
[2019-04-03] MEDS ORDERED: NIFEdipine XL 30 MG TAB PO SCH ×3 (12:45→21:00)
[2019-04-03 12:52] LABS: Anion Gap 15 mmol/L (10-20); BUN (Urea Nitrogen) 17 mg/dL (8.9-20.6); Calc. Creatinine Clearance 18 mL/min (70-130); Calcium 10.7 mg/dL (7.8-10.44); Carbon Dioxide 27 mmol/L (22-29); Chloride 100 mmol/L (98-107); Estimated GFR-MDRD 10; Glucose 93 mg/dL (70-105); Potassium 4.4 mmol/L (3.5-5.1); Sodium 138 mmol/L (136-145)
--- NOTE | 2019-04-03 14:52 | PDOC.PN ---
- Subjective Encounter Start Date: 04/03/19 Encounter Start Time: 14:49 Subjective: feels better. some abd pain this morning but feels hungry -: no N/V. no BM so far - Objective MAR Reviewed: Yes Vital Signs & Weight: Vital Signs (12 hours) Temp BP Pulse Ox 04/03/19 14:22 189/114 H 04/03/19 12:50 186/111 H 04/03/19 12:00 98.4 F 04/03/19 08:59 182/102 H 04/03/19 08:58 182/102 H 04/03/19 08:00 98.3 F 99 04/03/19 04:00 99.1 F Weight Weight 207 lb 3.752 oz Most Recent Monitor Data Heart Rate from ECG 72 NIBP 189/109 NIBP BP-Mean 135 Respiration from ECG 19 SpO2 96 I&O: 04/02/19 04/03/19 04/04/19 06:59 06:59 06:59 Intake Total 1586 808.6 450 Output Total 0 0 Balance 1586 808.6 450 Result Diagrams: 04/03/19 12:21 04/03/19 12:21 Phys Exam - Physical Examination Constitutional: NAD HEENT: PERRLA, moist MMs, sclera anicteric, oral pharynx no lesions Neck: no nodes, no JVD, supple, full ROM Respiratory: no wheezing, no rales, no rhonchi, clear to auscultation bilateral Cardiovascular: RRR, no significant murmur Gastrointestinal: soft, no distention, positive bowel sounds mild TTP Musculoskeletal: no edema, pulses present Neurological: non-focal, normal sensation, moves all 4 limbs Psychiatric: normal affect, A&O x 3 Skin: no rash Dx/Plan (1) Hypertensive urgency Code(s): I16.0 - HYPERTENSIVE URGENCY Status: Acute Comment: on NG drip. restarted home meds and added prn antihypertensives .NG drip stopped restart Procardia today and monitor (2) Acute pancreatitis Code(s): K85.90 - ACUTE PANCREATITIS WITHOUT NECROSIS OR INFECTION, UNSP Status: Acute Comment: on CT but amylase /lipase normal. NPo for 24 hrs and reassessed.clinically better start CLD today and recheck lipase in am (3) Anemia of renal disease Code(s): D63.1 - ANEMIA IN CHRONIC KIDNEY DISEASE Status: Chronic Comment: monitor H/H (4) ESRD (end stage renal disease) on dialysis Code(s): N18.6 - END STAGE RENAL DISEASE; Z99.2 - DEPENDENCE ON RENAL DIALYSIS Status: Chronic Comment: Dialysis per nephrology service (5) GERD (gastroesophageal reflux disease) Code(s): K21.9 - GASTRO-ESOPHAGEAL REFLUX DISEASE WITHOUT ESOPHAGITIS Status: Chronic Qualifiers: Esophagitis presence: esophagitis presence not specified Qualified Code(s) : K21.9 - Gastro-esophageal reflux disease without esophagitis Comment: add PPI (6) H/O kidney transplant Status: Chronic Comment: not working anymore from 2017 (7) Hypertension Code(s): I10 - ESSENTIAL (PRIMARY) HYPERTENSION Status: Chronic Qualifiers: Hypertension type: essential hypertension Qualified Code(s): I10 - Essential (primary) hypertension (8) Obesity (BMI 30.0-34.9) Code(s): E66.9 - OBESITY, UNSPECIFIED Status: Chronic (9) Secondary hyperparathyroidism of renal origin Code(s): N25.81 - SECONDARY HYPERPARATHYROIDISM OF RENAL ORIGIN Status: Chronic Comment: restart Renvela - Plan out of bed/ambulate, DVT proph w/SCDs Ok to transfer to tele -: monitor BP -: am labs including lipase -: bowel regimen.PPI IV * . Review of Systems - Review of Systems Constitutional: weakness, malaise. negative: fever, chills, sweats, other Respiratory: negative: Cough, Dry, Shortness of Breath, Hemoptysis, SOB with Excertion, Pleuritic Pain, Sputum, Wheezing Cardiovascular: negative: chest pain, palpitations, orthopnea, paroxysmal nocturnal dyspnea, edema, light headedness, other Gastrointestinal: Abdominal Pain. negative: Nausea, Vomiting, Diarrhea, Constipation, Melena, Hematochezia, Other Genitourinary: negative: Dysuria, Frequency, Incontinence, Hematuria, Retention , Other Musculoskeletal: negative: Neck Pain, Shoulder Pain, Arm Pain, Back Pain, Hand Pain, Leg Pain, Foot Pain, Other Skin: negative: Rash, Lesions, Ford, Bruising, Other Neurological: negative: Weakness, Numbness, Incoordination, Change in Speech, Confusion, Seizures, Other - Medications/Allergies Allergies/Adverse Reactions: Allergies Allergy/AdvReac Type Severity Reaction Status Date / Time loracarbef [From Lorabid] Allergy Severe Verified 04/01/19 13:08 Medications: Current Medications Clonidine (Catapres) 0.1 mg PO Q4H PRN PRN Reason: sbp>160 Last Admin: 04/03/19 02:36 Dose: 0.1 mg Clonidine (Catapres) 0.2 mg PO TID [facility] Last Admin: 04/03/19 14:22 Dose: 0.2 mg Fentanyl (Sublimaze) 25 mcg SLOW IVP ONE PRN PRN Reason: severe pain Stop: 04/03/19 15:00 Last Admin: 04/03/19 10:04 Dose: 25 mcg Hydralazine HCl (Apresoline) 10 mg SLOW IVP Q4H PRN PRN Reason: sbp>170 Last Admin: 04/03/19 01:37 Dose: 10 mg Hydralazine HCl (Apresoline) 100 mg PO TID [facility] Last Admin: 04/03/19 14:22 Dose: 100 mg Labetalol HCl (Normodyne) 400 mg PO BID [facility] Last Admin: 04/03/19 08:58 Dose: 400 mg Meperidine HCl (Demerol) 12.5 mg SLOW IVP Q4H PRN PRN Reason: Pain Last Admin: 04/02/19 16:26 Dose: 12.5 mg Nifedipine (Procardia Xl) 60 mg PO DAILY [facility] Ondansetron HCl (Zofran) 4 mg SLOW IVP Q4H PRN PRN Reason: Nausea/Vomiting Last Admin: 04/03/19 09:55 Dose: 4 mg Pantoprazole Sodium (Protonix) 40 mg IVP DAILY [facility] Last Admin: 04/03/19 08:59 Dose: 40 mg Sevelamer Carbonate (Renvela) 2,400 mg PO TID[facility] Last Admin: 04/03/19 12:49 Dose: 2,400 mg Sodium Chloride (Flush - Normal Saline) 10 ml IVF Q12HR [facility] Last Admin: 04/03/19 09:00 Dose: 10 ml Sodium Chloride (Flush - Normal Saline) 10 ml IVF PRN PRN PRN Reason: Saline Flush
[2019-04-03] MEDS ORDERED: Docusate 100 MG CAP PO PRN (14:53)
[2019-04-03] MEDS ORDERED: Bisacodyl 5 MG TAB PO PRN (14:53)
[2019-04-03] MEDS ORDERED: hydrALAZINE 20 MG/ML VIAL SLOW IVP SCH (15:45)
[2019-04-03] MEDS ORDERED: cloNIDine 0.1 MG TAB PO SCH (17:15)
[2019-04-04 06:36] LABS: Anion Gap 11 mmol/L (10-20); BUN (Urea Nitrogen) 22 mg/dL (8.9-20.6); Calc. Creatinine Clearance 15 mL/min (70-130); Carbon Dioxide 31 mmol/L (22-29); Chloride 97 mmol/L (98-107); Estimated GFR-MDRD 8; Glucose 83 mg/dL (70-105); Lipase 15 U/L (8-78); Potassium 4.3 mmol/L (3.5-5.1); Sodium 135 mmol/L (136-145)
[2019-04-04] MEDS: Sevelamer Carbonate 800 MG TAB PO SCH ×4 (08:07→18:18)
[2019-04-04] MEDS: cloNIDine 0.2 MG TAB PO SCH ×3 (08:08→20:37)
[2019-04-04] MEDS: hydrALAZINE 25 MG TAB PO SCH ×3 (08:12→20:37)
[2019-04-04] MEDS ORDERED: NIFEdipine XL 30 MG TAB PO SCH (09:00)
[2019-04-04] MEDS ORDERED: NIFEdipine XL 60 MG TAB PO SCH (09:00)
[2019-04-04] MEDS: Labetalol 100 MG TAB PO SCH ×2 (09:21→20:37)
[2019-04-04] MEDS: Pantoprazole 40 MG VIAL IVP SCH (09:22)
[2019-04-04] MEDS: NIFEdipine XL 90 MG TAB PO SCH (09:22)
--- NOTE | 2019-04-04 09:42 | PRG ---
DATE OF SERVICE: 04/04/2019 OBJECTIVE: VITAL SIGNS: Estee Martínez has a leg blood pressure of 155 this morning. This would make arm pressure 140 systolic. Heart rate is in 80s, respiratory rate is 18. Oximetry is 99%. GENERAL: He is in no distress. LUNGS: Clear. HEART: Regular rhythm. ABDOMEN: Soft. EXTREMITIES: Without edema. LABORATORY DATA: White count 7.5, hemoglobin 7.7, platelets 86,000. Sodium 135, potassium 4.3, chloride 97, bicarb 31, BUN 22, creatinine 10.37. IMPRESSION: 1. Difficult to control hypertension. His blood pressure is better today. 2. End-stage renal disease. 3. 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 4. Pancreatic inflammation with no symptoms or elevation of pancreatic enzymes. 5. History of multiple vascular access procedures. 6. Diastolic heart failure. He is stable to move out of Critical Care Unit now in my opinion. Job ID: [id number]
--- NOTE | 2019-04-04 10:34 | PRG ---
DATE OF SERVICE: 04/04/2019 SUBJECTIVE: Patient was seen and examined at bedside and overnight events noted. Patient denies any shortness of breath or chest pain or palpitation. No history of nausea or vomiting or diarrhea or fever or chills or cramps. OBJECTIVE: GENERAL: This is an obese male, in no apparent distress. VITAL SIGNS: Temperature 98.2, heart rate 87. Respiratory rate 20. Blood pressure 155/86. HEENT: Atraumatic, normocephalic. Oral mucosa is moist NECK: Supple. CARDIOVASCULAR: S1, S2 heard. Rate and rhythm regular. RESPIRATORY: Clear to auscultation. GASTROINTESTINAL: Abdomen is soft. MUSCULOSKELETAL: No tenderness. No edema. DERMATOLOGIC: No skin rash. NEUROLOGIC: Alert and awake and oriented X3. No focal neurologic deficits. Moving all the extremities. PSYCHIATRIC: Mood and affect normal. LABORATORY DATA: Potassium is 4.3, BUN is 22, and creatinine is 10.3. ASSESSMENT AND PLAN: 1. End-stage renal disease. Continue dialysis on Friday, Friday, and Friday. 2. Hypertension, better with oral medications. 3. Anemia. Monitor hemoglobin. 4. Edema. We will remove fluid. 5. Hypokalemia, stable. Continue dialysis as tolerated. Job ID: [id number]
--- NOTE | 2019-04-04 14:46 | PDOC.PN ---
- Subjective Encounter Start Date: 04/04/19 Encounter Start Time: 14:44 Subjective: feels better. no new complaints -: no abd pain .no N/V/D - Objective MAR Reviewed: Yes Vital Signs & Weight: Vital Signs (12 hours) Temp Pulse BP 04/04/19 12:00 98.1 F 04/04/19 09:22 87 155/86 H 04/04/19 09:21 87 155/86 H 04/04/19 08:12 87 155/86 H 04/04/19 08:08 155/86 H 04/04/19 08:00 98.2 F 04/04/19 03:00 98.4 F Weight Weight 207 lb 3.752 oz Most Recent Monitor Data Heart Rate from ECG 78 NIBP 100/45 NIBP BP-Mean 63 Respiration from ECG 21 SpO2 100 I&O: 04/03/19 04/04/19 04/05/19 06:59 06:59 06:59 Intake Total 808.6 1100 560 Output Total 0 0 Balance 808.6 1100 560 Result Diagrams: 04/03/19 12:21 04/04/19 05:37 Additional Labs: Laboratory Tests 04/02/19 04/04/19 08:59 05:37 Lipase 18 15 Phys Exam - Physical Examination Constitutional: NAD HEENT: PERRLA, moist MMs, sclera anicteric, oral pharynx no lesions Neck: no nodes, no JVD, supple, full ROM Respiratory: no wheezing, no rales, no rhonchi, clear to auscultation bilateral Cardiovascular: RRR, no significant murmur Gastrointestinal: soft, non-tender, no distention, positive bowel sounds Musculoskeletal: no edema, pulses present Neurological: non-focal, normal sensation, moves all 4 limbs Psychiatric: normal affect, A&O x 3 Skin: no rash Dx/Plan (1) Hypertensive urgency Code(s): I16.0 - HYPERTENSIVE URGENCY Status: Acute Comment: on NG drip. restarted home meds and added prn antihypertensives .NG drip stopped increased Procardia today and monitor (2) Acute pancreatitis Code(s): K85.90 - ACUTE PANCREATITIS WITHOUT NECROSIS OR INFECTION, UNSP Status: Acute Comment: on CT but amylase /lipase normal. NPo for 24 hrs and reassessed.clinically better start Regular diet today and monitor clinically (3) Anemia of renal disease Code(s): D63.1 - ANEMIA IN CHRONIC KIDNEY DISEASE Status: Chronic Comment: monitor H/H (4) ESRD (end stage renal disease) on dialysis Code(s): N18.6 - END STAGE RENAL DISEASE; Z99.2 - DEPENDENCE ON RENAL DIALYSIS Status: Chronic Comment: Dialysis per nephrology service (5) GERD (gastroesophageal reflux disease) Code(s): K21.9 - GASTRO-ESOPHAGEAL REFLUX DISEASE WITHOUT ESOPHAGITIS Status: Chronic Qualifiers: Esophagitis presence: esophagitis presence not specified Qualified Code(s) : K21.9 - Gastro-esophageal reflux disease without esophagitis Comment: add PPI (6) H/O kidney transplant Status: Chronic Comment: not working anymore from 2017 (7) Hypertension Code(s): I10 - ESSENTIAL (PRIMARY) HYPERTENSION Status: Chronic Qualifiers: Hypertension type: essential hypertension Qualified Code(s): I10 - Essential (primary) hypertension (8) Obesity (BMI 30.0-34.9) Code(s): E66.9 - OBESITY, UNSPECIFIED Status: Chronic (9) Secondary hyperparathyroidism of renal origin Code(s): N25.81 - SECONDARY HYPERPARATHYROIDISM OF RENAL ORIGIN Status: Chronic Comment: restart Renvela - Plan PT/OT, respiratory therapy, incentive spirometry, DVT proph w/SCDs awaiting Tele bed.BP better but w wide swings .monitor -: advance diet -: mia VILLALOBOS in next 24 hours.HD stable -: hemodialysis MWF. monitor renal labs * . Review of Systems - Review of Systems Constitutional: negative: fever, chills, sweats, weakness, malaise, other ENT: negative: Ear Pain, Ear Discharge, Nose Pain, Nose Discharge, Nose Congestion, Mouth Pain, Mouth Swelling, Throat Pain, Throat Swelling, Other Respiratory: negative: Cough, Dry, Shortness of Breath, Hemoptysis, SOB with Excertion, Pleuritic Pain, Sputum, Wheezing Cardiovascular: negative: chest pain, palpitations, orthopnea, paroxysmal nocturnal dyspnea, edema, light headedness, other Gastrointestinal: negative: Nausea, Vomiting, Abdominal Pain, Diarrhea, Constipation, Melena, Hematochezia, Other Genitourinary: negative: Dysuria, Frequency, Incontinence, Hematuria, Retention , Other Musculoskeletal: negative: Neck Pain, Shoulder Pain, Arm Pain, Back Pain, Hand Pain, Leg Pain, Foot Pain, Other Neurological: negative: Weakness, Numbness, Incoordination, Change in Speech, Confusion, Seizures, Other - Medications/Allergies Allergies/Adverse Reactions: Allergies Allergy/AdvReac Type Severity Reaction Status Date / Time loracarbef [From Lorabid] Allergy Severe Verified 04/01/19 13:08 Medications: Current Medications Bisacodyl (Dulcolax) 10 mg PO DAILYPRN PRN PRN Reason: Constipation Clonidine (Catapres) 0.1 mg PO Q4H PRN PRN Reason: sbp>160 Last Admin: 04/03/19 02:36 Dose: 0.1 mg Clonidine (Catapres) 0.2 mg PO TID [facility] Last Admin: 04/04/19 08:08 Dose: 0.2 mg Docusate Sodium (Colace) 100 mg PO BIDPRN PRN PRN Reason: Constipation Hydralazine HCl (Apresoline) 10 mg SLOW IVP Q4H PRN PRN Reason: sbp>170 Last Admin: 04/03/19 15:06 Dose: 10 mg Hydralazine HCl (Apresoline) 100 mg PO TID [facility] Last Admin: 04/04/19 08:12 Dose: 100 mg Labetalol HCl (Normodyne) 400 mg PO BID [facility] Last Admin: 04/04/19 09:21 Dose: 400 mg Meperidine HCl (Demerol) 12.5 mg SLOW IVP Q4H PRN PRN Reason: Pain Last Admin: 04/02/19 16:26 Dose: 12.5 mg Nifedipine (Procardia Xl) 90 mg PO DAILY [facility] Last Admin: 04/04/19 09:22 Dose: 90 mg Ondansetron HCl (Zofran) 4 mg SLOW IVP Q4H PRN PRN Reason: Nausea/Vomiting Last Admin: 04/03/19 20:03 Dose: 4 mg Pantoprazole Sodium (Protonix) 40 mg IVP DAILY [facility] Last Admin: 04/04/19 09:22 Dose: 40 mg Sevelamer Carbonate (Renvela) 2,400 mg PO TID[facility] Last Admin: 04/04/19 13:40 Dose: 2,400 mg Sodium Chloride (Flush - Normal Saline) 10 ml IVF Q12HR [facility] Last Admin: 04/04/19 09:23 Dose: 10 ml Sodium Chloride (Flush - Normal Saline) 10 ml IVF PRN PRN PRN Reason: Saline Flush
[2019-04-04] MEDS: Ondansetron PF 4 MG/2 ML Vial SLOW IVP PRN ×2 (16:05→20:43)
[2019-04-04] MEDS ORDERED: diphenhydrAMINE 25 MG CAP PO PRN (19:37)
[2019-04-05] MEDS: hydrALAZINE 20 MG/ML VIAL SLOW IVP PRN (04:15)
[2019-04-05] MEDS: cloNIDine 0.1 MG TAB PO PRN (05:49)
[2019-04-05 05:53] VITALS: BMI 26.7
[2019-04-05 05:53] LABS: Anion Gap 12 mmol/L (10-20); BUN (Urea Nitrogen) 28 mg/dL (8.9-20.6); Calc. Creatinine Clearance 12 mL/min (70-130); Calcium 9.7 mg/dL (7.8-10.44); Carbon Dioxide 30 mmol/L (22-29); Chloride 98 mmol/L (98-107); Estimated GFR-MDRD 6; Glucose 79 mg/dL (70-105); Potassium 4.4 mmol/L (3.5-5.1); Sodium 136 mmol/L (136-145)
[2019-04-05] MEDS: Sevelamer Carbonate 800 MG TAB PO SCH ×2 (07:58→12:00)
[2019-04-05] MEDS: hydrALAZINE 25 MG TAB PO SCH (09:41)
[2019-04-05] MEDS: cloNIDine 0.2 MG TAB PO SCH (09:42)
[2019-04-05] MEDS: NIFEdipine XL 90 MG TAB PO SCH (09:44)
--- NOTE | 2019-04-05 10:35 | PRG ---
DATE OF SERVICE: 04/05/2019 SUBJECTIVE: Mr. Martínez has no new complaints. He is awaken from sleep. He is 204/120 this morning, but he is going for dialysis. OBJECTIVE: VITAL SIGNS: About the time, his blood pressure is taking his heart rate in the 60s, he is on room air. LUNGS: Clear. HEART: Regular rhythm. ABDOMEN: Soft. LABORATORY DATA: Sodium 136, potassium 4.4, chloride 98, bicarb 30, BUN 20, and creatinine 12.33. He informed the nurses, he is not on a renal diet at home and did not want a renal diet here. IMPRESSION AND PLAN: 1. Hypertension, poorly controlled. 2. End-stage renal disease. 3. Status post resection of transplant with an infarcted transplant kidney on CT imaging. 4. He is stable to move out of the critical care unit to a medical bed in my opinion. We will sign off. Job ID: [id number]
--- NOTE | 2019-04-05 11:13 | PRG ---
DATE OF SERVICE: 04/05/2019 SUBJECTIVE: Patient was seen and examined at bedside and overnight events noted. Patient denies any shortness of breath or chest pain or palpitation. No history of nausea or vomiting or diarrhea or fever or chills or cramps. OBJECTIVE: GENERAL: This is an obese male, in no apparent distress. VITAL SIGNS: Temperature 98.1. Heart rate 69. Respiratory rate 18. Blood pressure 179/105. HEENT: Atraumatic, normocephalic. Oral mucosa is moist NECK: Supple. CARDIOVASCULAR: S1, S2 heard. Rate and rhythm regular. RESPIRATORY: Clear to auscultation. GASTROINTESTINAL: Abdomen is soft. MUSCULOSKELETAL: No tenderness. No edema. DERMATOLOGIC: No skin rash. NEUROLOGIC: Alert and awake and oriented X3. No focal neurologic deficits. Moving all the extremities. PSYCHIATRIC: Mood and affect normal. LABORATORY DATA: Potassium 4.4, BUN is 28, and creatinine is 12.3. ASSESSMENT AND PLAN: 1. End-stage renal disease. Continue dialysis on Friday, Friday, and Friday. 2. Hypertension. We will titrate medication. 3. Anemia. We will monitor hemoglobin. 4. Edema. We will remove fluid. 5. Hypokalemia, stable. Plan to continue on dialysis. Monitor blood pressure after dialysis. We will remove fluid with dialysis as tolerated. Job ID: [id number]
[2019-04-05 13:01] VITALS: TEMP 98.2
[2019-04-05] MEDS: Labetalol 100 MG TAB PO SCH (13:34)
[2019-04-05] MEDS: Pantoprazole 40 MG VIAL IVP SCH (13:35)
[2019-04-05 13:43] VITALS: BP 147/85
--- NOTE | 2019-04-05 20:08 | DIS ---
DATE OF ADMISSION: 04/01/2019 DATE OF DISCHARGE: 04/05/2019 CONDITION: At the time of discharge, stable and improved. DISCHARGE DISPOSITION: Home. PRIMARY CARE PHYSICIAN: Dr. Loy Zeng. PRIMARY COLLECTIONS AGENT: Dr. Arrieta. DISCHARGE DIAGNOSES: 1. Uncontrolled hypertension with hypertensive urgency. 2. Mild acute pancreatitis. 3. Anemia of chronic kidney disease. 4. End-stage renal disease, on hemodialysis. 5. Gastroesophageal reflux disease. 6. History of failed kidney transplant. 7. Hypertension. 8. Obesity. 9. Secondary hyperparathyroidism of renal origin. DISCHARGE MEDICATIONS: Resume home medications as follows: 1. Hydralazine 100 mg p.o. t.i.d. 2. Clonidine 0.2 mg p.o. t.i.d. 3. Labetalol 400 mg p.o. b.i.d. 4. Hydralazine 100 mg p.o. t.i.d. 5. Renvela 2400 mg p.o. t.i.d. 6. B12 daily. 7. Zofran p.r.n. New medication, Procardia XL 90 mg p.o. daily. The patient was taking two different kinds of nifedipine, which has been reconciled into one as above. IN-HOUSE CONSULTATION: Nephrology, Dr. Arrieta. PROCEDURES DONE IN THE HOSPITAL: CT scan of the abdomen and pelvis, which showed findings suggestive of acute pancreatitis, likely sequela. HISTORY OF PRESENTING ILLNESS: Mr. Martínez is a 24-year-old male with past medical history of end-stage renal disease, on hemodialysis, who presented to the emergency room with complaints of chest pain after missed hemodialysis. In the ER, his blood pressure was 240/140. He was started on Cardene drip at hypertensive urgency along with nitroglycerin transdermal and was admitted to CCU for uncontrolled hypertensive urgency. He was also found to have pulmonary vascular congestion on chest x-ray. Please see admission history and physical dictated by Dionna Massey MD on 04/01/2019. Nephrology was consulted. HOSPITAL COURSE: The patient was managed with Cardene drip for several hours. He complained of abdominal pain, so he was kept n.p.o. and Nephrology did emergent and then maintenance dialysis in the hospital. This helped control his blood pressure. With regard to his abdominal pain, a CT scan of the abdomen and pelvis was done which showed findings consistent with acute pancreatitis. However, his amylase and lipase were checked and followed serially and were within normal limits. He was kept n.p.o. until his pain resolved and eventually, he was transitioned to clear liquid diet and finally to full regular heart healthy diet, which he tolerated very well without any nausea, vomiting, or abdominal pain. His home medications were started at this point and they were titrated according to his response. His blood pressure has responded very well with restart of these medications and with continuation of dialysis in the hospital. As of this morning, he has been cleared to discharge from Nephrology standpoint and also from Pulmonary Critical Care standpoint, who saw the patient while he was in the CCU for Cardene drip. His discharge blood pressure is 147/85 with a heart rate of 81. I have seen and examined the patient prior to discharge today. He feels better and is eager to go home. PHYSICAL EXAMINATION: This morning. CHEST: Clear to auscultation bilaterally. HEART: Rate and rhythm regular. ABDOMEN: Soft, nontender, nondistended without any guarding, rebound, or rigidity. FOLLOWUP: He will follow up with primary care physician in 7 to 10 days and continue hemodialysis in the outpatient setting. Medication and dialysis compliance have been instructed. TIME SPENT: Total time spent in the discharge, 32 minutes. Job ID: [id number]
== END 2019-04-05 14:04 | disposition home or self-care (01) | DRG 304 ==
LOC: ERS 09:52 → CCU 12:59
PROVIDERS: ADMIT Internal Medicine; ATTEND Internal Medicine
DX: I16.0 Hypertensive urgency (principal); N18.6 End stage renal disease; K85.90 Acute pancreatitis without necrosis or infection, unspecified; I50.32 Chronic diastolic (congestive) heart failure; N25.81 Secondary hyperparathyroidism of renal origin; E87.6 Hypokalemia; I13.0 Hypertensive heart and chronic kidney disease with heart failure and stage 1 through stage 4 chronic kidney disease, or unspecified chronic kidney disease; D63.1 Anemia in chronic kidney disease; K21.9 Gastro-esophageal reflux disease without esophagitis; E66.9 Obesity, unspecified; Z94.0 Kidney transplant status; Z99.2 Dependence on renal dialysis; Z91.15 Patient's noncompliance with renal dialysis; Z91.018 Allergy to other foods; Z68.26 Body mass index [BMI] 26.0-26.9, adult
CPT/HCPCS: 36415; 36416; 71045; 74176; 80048; 80053; 82150; 82550; 83690; 83735; 83880; 84100; 84484; 85025; 90935; 93005; 96365; 96366; 96374; 96375; 96376; C9113; G0257; J0360; J0456; J2060; J2175; J2270; J2405; J3010; J7050; Q0163

== ENCOUNTER 2019-05-30 19:19 | Inpatient (IN) | payer OTHER ==
[2019-05-30] MEDS ORDERED: cloNIDine 0.1 MG TAB ONE (22:25)
[2019-05-30 22:37] LABS: Hemoglobin 10.2 g/dL (14.0-18.0); Mean Corpuscular HGB CONC 33.5 g/dL (32.0-36.0); Mean Corpuscular Hemoglobin 32.9 pg (27.0-31.0); Mean Corpuscular Volume 98.4 fL (78.0-98.0); RBC Distribution Width 15.5 % (11.5-14.5); Red Blood Cell (RBC) Count 3.09 mill/uL (4.70-6.10); White Blood Cell (WBC) Count 4.8 thou/uL (4.8-10.8)
--- NOTE | 2019-05-30 22:50 | RAD ---
EXAM: Chest PA and lateral: HISTORY: Chronic kidney disease. Dialysis patient. Headache. COMPARISON: 09/30/2018, 05/12/2019 FINDINGS: Heart: Cardiomegaly Aorta: Unremarkable Pulmonary vessels: Normal Costophrenic angles: Costophrenic angles are clear. Lungs: Patchy interstitial opacities. Correlate for edema or infiltrate. Pneumothorax: No pneumothorax Osseous structures: No osseous abnormalities IMPRESSION: 1. Cardiomegaly. Patchy interstitial opacities. 2. Correlate for edema or infiltrate.
[2019-05-30 22:54] LABS: ALT (SGPT) 7 U/L (8-55); AST (SGOT) 12 U/L (5-34); Albumin 4.3 g/dL (3.5-5.0); Alkaline Phosphatase 86 U/L (40-150); Anion Gap 19 mmol/L (10-20); BUN (Urea Nitrogen) 42 mg/dL (8.9-20.6); Bilirubin, Total 0.7 mg/dL (0.2-1.2); Calc. Creatinine Clearance 0 mL/min (70-130); Calcium 10.2 mg/dL (7.8-10.44); Carbon Dioxide 27 mmol/L (22-29); Chloride 97 mmol/L (98-107); Estimated GFR-MDRD 5; Globulin 2.5 g/dL (2.4-3.5); Glucose 71 mg/dL (70-105); Magnesium 2.4 mg/dL (1.6-2.6); Potassium 3.8 mmol/L (3.5-5.1); Protein, Total 6.8 g/dL (6.0-8.3); Sodium 139 mmol/L (136-145)
[2019-05-30 22:58] LABS: #Eosinphils 0.6 thou/uL (0.0-0.7); #Lymphocytes 1.3 thou/uL (1.20-3.40); #Monocytes 0.6 thou/uL (0.11-0.59); #Neutrophils 2.2 thou/uL (1.40-6.50); %Basophils 0.9 % (0.0-1.0); %Eosinophils 13.6 % (0.0-10.0); %Lymphocytes 26.6 % (21.0-51.0); Mean Platelet Volume 10.1 fL (7.4-10.4); Platelet Count 106 thou/uL (130-400)
[2019-05-30 22:59] LABS: MDiff Complete? YES; Platelet Morphology Comment Appears Decreased; Schistocytes SLIGHT = 2-5 cells (100X) (0-1/hpf)
--- NOTE | 2019-05-30 23:05 | CT ---
Exam: Head CT without contrast HISTORY: Headache COMPARISON: 05/12/2019 FINDINGS: Hemorrhage: No intraparenchymal hemorrhage or extra-axial hematoma. Brain parenchyma: Cortical keller-white matter differentiation is preserved. No mass effect or midline shift. Basilar cisterns are patent. Ventricular system: Ventricles and sulci are patent and symmetric. Calvarium: Intact. Sinuses and mastoid air cells: Adequate aeration. IMPRESSION: No acute intracranial process.
[2019-05-30 23:09] LABS: Troponin I Less than 0.010 ng/mL (< 0.028)
[2019-05-30] MEDS ORDERED: Morphine 4 MG/ML VIAL ONE (23:41)
[2019-05-30] MEDS ORDERED: Labetalol HCl 100 MG/20 ML VIAL ONE (23:41)
[2019-05-31] MEDS ORDERED: niCARdipine 20MG In NaCl 20 MG/200 ML BAG ONE (00:39)
[2019-05-31] MEDS ORDERED: Ondansetron ODT 4 MG TAB SL PRN (01:30)
[2019-05-31] MEDS ORDERED: niCARdipine 25 MG in Sodium Chloride 0.9% 250 ML 240 ML IVPB SCH (01:30)
[2019-05-31] MEDS ORDERED: Ondansetron PF 4 MG/2 ML Vial IVP PRN (01:30)
[2019-05-31] MEDS ORDERED: HYDROcodone/Acetaminophen 5/325 mg Tablet PO PRN ×3 (01:30→02:49)
[2019-05-31] MEDS ORDERED: Morphine 4 MG/ML VIAL SLOW IVP PRN (01:35)
[2019-05-31 01:47] LABS: Troponin I Less than 0.010 ng/mL (< 0.028)
[2019-05-31 01:50] VITALS: BMI 25.2
[2019-05-31] MEDS ORDERED: Senokot S 8.6-50 MG TAB PO PRN (02:49)
[2019-05-31] MEDS ORDERED: Guaifenesin DM 100-10/5 ML UDCUP PO PRN (02:49)
[2019-05-31] MEDS ORDERED: Bisacodyl 10 MG SUPP PR PRN (02:49)
[2019-05-31] MEDS ORDERED: HYDROcodone/Acetaminophen 10/325 mg Tablet PO PRN (02:49)
[2019-05-31] MEDS ORDERED: Acetaminophen 325 MG TAB PO PRN (02:49)
[2019-05-31 03:20] LABS: Hep B Surf Ag Non-Reactive S/CO (NonReactive)
[2019-05-31 03:32] LABS: HBSAB Concentration 231.11 mIU/mL; Hep B Surf AB Reactive (NonReactive)
--- NOTE | 2019-05-31 03:35 | HP ---
REASON FOR ADMISSION: Hypertensive emergency, headache, volume overload. HISTORY OF PRESENTING ILLNESS: The patient says he was not feeling good and he could not lie down flat. He knew he had a lot of fluid. The patient also mentions that he had only 3 hour session on Friday with his dialysis. In addition to that, he had some alcohol for 27 of May weekend, with both of which he has had additional fluid intake. No complaints of chest pain at present. No cough or expectoration. The patient's scheduled dialysis is today. 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 CURRENT MEDICATIONS: Takes: 1. Labetalol 400 mg p.o. twice daily. 2. Hydralazine 200 mg p.o. q.a.m. and 100 mg p.o. at bedtime. 3. Procardia XL 90 mg p.o. daily. 4. Renvela 2400 mg p.o. 3 times daily. 5. Clonidine 0.2 mg p.o. twice daily. ALLERGIES: TO LORABID. PERSONAL HISTORY: Smokes marijuana. Alcohol on social occasions. Does not abuse any other drugs. No smoking. FAMILY HISTORY: The patient stays with his grandmother. He has a 3-year-old child. There is history of hypertension in the family. REVIEW OF SYSTEMS: CONSTITUTIONAL: Negative for weight loss or gain, ability to conduct usual activities. SKIN: Negative for rash, itching. EYES: Negative for double vision, pain. ENT/MOUTH: Negative for nose bleeding, neck stiffness, pain, tenderness. CARDIOVASCULAR: Negative for palpitations, dyspnea on exertion, orthopnea. RESPIRATORY: Negative for shortness of breath, wheezing, cough, hemoptysis, fever or night sweats. GASTROINTESTINAL: Negative for poor appetite, abdominal pain, heartburn, nausea , vomiting, constipation, or diarrhea. GENITOURINARY: Negative for urgency, frequency, dysuria, nocturia. MUSCULOSKELETAL: Negative for pain, swelling. NEUROLOGIC/PSYCHIATRIC: Negative for anxiety, depression. ALLERGY/IMMUNOLOGIC: Negative for skin rash, bleeding tendency. PHYSICAL EXAMINATION: GENERAL: The patient is a 24-year-old male who is currently having shortness of breath and headache. VITAL SIGNS: Blood pressure 220/150, pulse 86 per minute, respiratory rate 18 per minute, temperature 98.3 degrees Fahrenheit, and saturating 97% on room air. NECK: Supple. No elevated JVD. HEENT: Eyes; extraocular muscles intact. Pupils reacting to light. Oral cavity, mucous membranes are moist. No exudates or congestion. CARDIOVASCULAR: S1, S2 heard. Murmur plus. RESPIRATORY: Air entry 1+ bilateral. Rales plus in the infrascapular area. ABDOMEN: Soft. Bowel sounds heard. No tenderness, rigidity, or guarding. EXTREMITIES: No peripheral edema or calf tenderness. VASCULAR SYSTEM: Peripheral pulses 1+ bilateral. No ischemic ulcerations or gangrene. CENTRAL NERVOUS SYSTEM: No gross focal deficits noted. The patient is alert, awake, and oriented well. PSYCHIATRIC: The patient's mood is euthymic. No hallucinations or delusions. LABORATORY DATA: A prior echo done in May of 2018 shows asymmetric septal hypertrophy with peak LVOT gradient of 63 mmHg, grade 1/3 diastolic dysfunction. He also had moderate systolic anterior motion of anterior leaflet on the same echo. There was dilated aortic root measuring 4.5 cm. EKG done shows normal sinus rhythm at 78 beats per minute. There are signs of LVH seen. White count of 4.8, H and H 10 and 30, platelet count 106 with 46% neutrophils, MCV is 98, serum bicarb is 27, BUN 42, creatinine 15, AST, ALT, alkaline phosphatase within normal limits. Troponin x2 negative. CT brain without contrast shows no acute intracranial process. Chest x-ray done shows cardiomegaly with pulmonary vascular congestion. CLINICAL IMPRESSION AND PLAN: The patient will be emergently dialyzed now with volume overload and hypertensive emergency. He is currently on Cardene drip at 5 mg an hour. We will continue his home medications including labetalol, clonidine, Procardia XL, and hydralazine as before. Dr. Sofia has been consulted from ER and emergent dialysis is being arranged. Once dialysis is done, the patient can be downgraded to telemetry. The patient has a dilated aortic root and grade 4 murmur best heard in the left parasternal area with a prior echo showing left ventricular outlet obstruction. In view of this, we will obtain another echo and likely Vascular Surgery consultation. CODE STATUS: Code status was discussed with him and he wants to be a full code. Power of environmental attorney is his grandmother. Job ID: [id number] [facility]
[2019-05-31] MEDS ORDERED: diphenhydrAMINE 25 MG CAP PO SCH (04:00)
[2019-05-31 04:41] LABS: #Eosinphils 0.7 thou/uL (0.0-0.7); #Lymphocytes 1.6 thou/uL (1.20-3.40); #Monocytes 0.5 thou/uL (0.11-0.59); #Neutrophils 2.3 thou/uL (1.40-6.50); %Basophils 0.5 % (0.0-1.0); %Eosinophils 12.9 % (0.0-10.0); %Lymphocytes 31.5 % (21.0-51.0); %Monocytes 9.6 % (0.0-10.0); %Neutrophils 45.5 % (42.0-75.0); Hemoglobin 10.5 g/dL (14.0-18.0); Mean Corpuscular HGB CONC 33.2 g/dL (32.0-36.0); Mean Corpuscular Hemoglobin 32.5 pg (27.0-31.0); Mean Corpuscular Volume 97.9 fL (78.0-98.0); Mean Platelet Volume 9.4 fL (7.4-10.4); Platelet Count 93 thou/uL (130-400); RBC Distribution Width 15.6 % (11.5-14.5); Red Blood Cell (RBC) Count 3.23 mill/uL (4.70-6.10); White Blood Cell (WBC) Count 5.1 thou/uL (4.8-10.8)
[2019-05-31 04:48] LABS: Anion Gap 16 mmol/L (10-20); BUN (Urea Nitrogen) 35 mg/dL (8.9-20.6); Calc. Creatinine Clearance 11 mL/min (70-130); Calcium 9.6 mg/dL (7.8-10.44); Carbon Dioxide 28 mmol/L (22-29); Chloride 97 mmol/L (98-107); Estimated GFR-MDRD 6; Glucose 116 mg/dL (70-105); Potassium 3.5 mmol/L (3.5-5.1); Sodium 137 mmol/L (136-145)
[2019-05-31] MEDS: Enoxaparin Sodium 30 MG/0.3 ML SYRINGE SC SCH (08:03)
[2019-05-31] MEDS: Sevelamer Carbonate 800 MG TAB PO SCH ×3 (08:04→18:21)
[2019-05-31] MEDS: hydrALAZINE 25 MG TAB PO SCH ×3 (08:04→20:49)
[2019-05-31] MEDS: Labetalol 100 MG TAB PO SCH ×2 (08:05→20:48)
[2019-05-31] MEDS: cloNIDine 0.2 MG TAB PO SCH ×2 (08:05→20:49)
[2019-05-31] MEDS: NIFEdipine XL 90 MG TAB PO SCH (08:08)
[2019-05-31] MEDS ORDERED: hydrALAZINE 25 MG TAB PO SCH (09:00)
--- NOTE | 2019-05-31 11:37 | CON ---
DATE OF CONSULTATION: 05/31/2019 REASON FOR CONSULTATION: Hypertensive emergency. Following encompassed 50 minutes of time, of that greater than 50% was spent with the patient and/or the patient's unit in the hospital. HISTORY OF PRESENT ILLNESS: The patient is a 24-year-old black male, who came to the emergency room yesterday with a headache and some difficulty breathing. He was found to be grossly fluid overloaded and received emergent dialysis early this morning with approximately 3.5 L of fluid removed. He is now breathing better and has no complaints. He remains on a nicardipine drip with a goal to wean that off later today. PAST MEDICAL HISTORY: 1. End-stage renal disease, requiring dialysis. 2. Hypertension. 3. 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 4. Goodpasture syndrome. PAST SURGICAL HISTORY: 1. Right upper arm dialysis access. 2. Renal transplant. MEDICATIONS: Prior to admission; 1. Labetalol 40 mg twice daily. 2. Hydralazine 200 mg in the morning, 100 mg at night. 3. Procardia XL 90 mg daily. 4. Renvela 2400 mg 3 times daily. 5. Clonidine 0.2 mg twice daily. ALLERGIES: LORABID. SOCIAL HISTORY: He is a marijuana smoker. Occasionally drinks alcohol. Does not use any other illicit drugs. Does not smoke cigarettes. FAMILY MEDICAL HISTORY: Hypertension. REVIEW OF SYSTEMS: Remarkable for shortness of breath and headache. Otherwise, 12-point review of systems negative. PHYSICAL EXAMINATION: VITAL SIGNS: Temperature 98.1, pulse 85, blood pressure 162/95, and O2 saturation 95%. GENERAL: He is awake and alert, and in no distress. HEENT: Unremarkable. NECK: Without adenopathy, JVD, or bruits. LUNGS: Clear to auscultation. CARDIAC: S1 and S2 regular without audible murmur. ABDOMEN: Soft, nontender. EXTREMITIES: Right upper arm palpable thrill in the dialysis shunt. There is no edema noted. IMAGING DATA: Chest x-ray demonstrates cardiomegaly without evidence of mass, effusion, or infiltrate. LABORATORY DATA: White blood cell count 5.1, hemoglobin 10.5, hematocrit 31.7, and platelet count 93. Sodium 137, potassium 3.5, chloride 97, CO2 of 28, BUN 35, creatinine 12.7, and glucose 116. ASSESSMENT: 1. Hypertensive emergency. 2. End-stage renal disease, requiring dialysis. Constellation of symptoms at the time of admission suggest the patient has been noncompliant with dialysis and noncompliant with his antihypertensives. PLAN: I have instructed the nurse to wean him off the nicardipine. His oral medications for hypertension had been started this morning. Once he is weaned off the nicardipine, he can be transferred to the floor. He is continuing dialysis for fluid removal. He is on Lovenox for DVT prophylaxis. With his platelet count of 93, this will need to be watched closely. Job ID: [id number]
--- NOTE | 2019-05-31 17:01 | CON ---
DATE OF CONSULTATION: 05/31/2019 CONSULTING PHYSICIAN: Pankaj Glover MD REASON FOR CONSULTATION: End-stage renal disease evaluation and care, reason for admission; hypertension. HISTORY OF PRESENT ILLNESS: This is a 24-year-old male with a history of renal transplant, end-stage renal disease, came to the hospital with above complaints and had dialysis last night for Dr. Arrieta. No fever or chills. No nausea or vomiting. Blood pressure is better. PAST MEDICAL HISTORY: Positive for end-stage renal disease, renal transplant, hypertension. PAST SURGICAL HISTORY: Dialysis access placement. HOME MEDICATIONS: 1. Labetalol. 2. Hydralazine. 3. Procardia. 4. Renvela. 5. Clonidine. ALLERGIES: LORABID. SOCIAL HISTORY: No smoking, alcohol, or illicit drug abuse. FAMILY HISTORY: No history of kidney disease. REVIEW OF SYSTEMS: CONSTITUTIONAL: Negative for weight loss or gain, ability to conduct usual activities. SKIN: Negative for rash, itching. EYES: Negative for double vision, pain. ENT/MOUTH: Negative for nose bleeding, neck stiffness, pain, tenderness. CARDIOVASCULAR: Negative for palpitations, dyspnea on exertion, orthopnea. RESPIRATORY: Negative for shortness of breath, wheezing, cough, hemoptysis, fever or night sweats. GASTROINTESTINAL: Negative for poor appetite, abdominal pain, heartburn, nausea, vomiting, constipation, or diarrhea. GENITOURINARY: Negative for urgency, frequency, dysuria, nocturia. MUSCULOSKELETAL: Negative for pain, swelling. NEUROLOGIC/PSYCHIATRIC: Negative for anxiety, depression. ALLERGY/IMMUNOLOGIC: Negative for skin rash, bleeding tendency. Rest all negative PHYSICAL EXAMINATION: GENERAL: Morbidly obese male, in no apparent distress. VITAL SIGNS: Temperature 98.6, pulse 85, respiratory rate . HEENT: Atraumatic, normocephalic. Oral mucosa moist. NECK: Supple. CVS: S1 and S2 heard. Regular rate and rhythm. RESPIRATORY: Clear. GI: Abdomen is soft. MUSCULOSKELETAL: 1+ edema. DERMATOLOGIC: No skin rash. NEUROLOGIC: Alert and awake. PSYCHIATRIC: Normal mood and affect. LABORATORY DATA: Potassium 3.5, BUN is 35, and creatinine is 12.7. ASSESSMENT AND PLAN: 1. End-stage renal disease, dialysis and continue dialysis as tolerated. 2. Hypertension, better. 3. Edema. 4. Anemia. 5. Morbid obesity. We will continue on dialysis as tolerated. Job ID: [id number]
[2019-05-31] MEDS: diphenhydrAMINE 25 MG CAP PO PRN (18:21)
[2019-05-31] MEDS ORDERED: hydrALAZINE 20 MG/ML VIAL SLOW IVP PRN (20:10)
[2019-05-31] MEDS ORDERED: cloNIDine 0.1 MG TAB PO PRN (20:10)
[2019-06-01 05:52] LABS: Albumin 3.9 g/dL (3.5-5.0); Anion Gap 19 mmol/L (10-20); BUN (Urea Nitrogen) 28 mg/dL (8.9-20.6); Calc. Creatinine Clearance 12 mL/min (70-130); Calcium 10.5 mg/dL (7.8-10.44); Carbon Dioxide 24 mmol/L (22-29); Chloride 99 mmol/L (98-107); Estimated GFR-MDRD 6; Glucose 76 mg/dL (70-105); Phosphorus 6.3 mg/dL (2.3-4.7); Potassium 4.3 mmol/L (3.5-5.1); Sodium 138 mmol/L (136-145)
[2019-06-01 06:01] LABS: #Eosinphils 0.6 thou/uL (0.0-0.7); #Monocytes 0.7 thou/uL (0.11-0.59); #Neutrophils 3.2 thou/uL (1.40-6.50); %Basophils 0.1 % (0.0-1.0); %Eosinophils 10.3 % (0.0-10.0); %Lymphocytes 18.7 % (21.0-51.0); %Monocytes 12.5 % (0.0-10.0); %Neutrophils 58.4 % (42.0-75.0); Anisocytosis SLIGHT = 6-15 cells (100X) (0-5/hpf); Hemoglobin 10.4 g/dL (14.0-18.0); MDiff Complete? YES; Mean Corpuscular Hemoglobin 32.8 pg (27.0-31.0); Mean Corpuscular Volume 99.4 fL (78.0-98.0); Mean Platelet Volume 9.5 fL (7.4-10.4); Platelet Count 100 thou/uL (130-400); Platelet Morphology Comment Appears Decreased; RBC Distribution Width 15.6 % (11.5-14.5); Red Blood Cell (RBC) Count 3.17 mill/uL (4.70-6.10); White Blood Cell (WBC) Count 5.5 thou/uL (4.8-10.8)
[2019-06-01] MEDS ORDERED: Sodium Chloride 0.9% 10 ML ONE (08:15)
[2019-06-01] MEDS: cloNIDine 0.2 MG TAB PO SCH ×2 (08:46→21:05)
[2019-06-01] MEDS: Sevelamer Carbonate 800 MG TAB PO SCH ×3 (08:46→17:26)
[2019-06-01] MEDS: hydrALAZINE 25 MG TAB PO SCH ×3 (08:46→21:05)
[2019-06-01] MEDS: NIFEdipine XL 90 MG TAB PO SCH (08:46)
[2019-06-01] MEDS: Enoxaparin Sodium 30 MG/0.3 ML SYRINGE SC SCH ×2 (08:47→08:52)
--- NOTE | 2019-06-01 08:57 | PRG ---
DATE OF SERVICE: 06/01/2019 SUBJECTIVE: Estee Martínez this morning, is awake, alert, and responsive. No shortness of breath. His x-ray was clear. He got cardiomegaly. OBJECTIVE: VITAL SIGNS: Blood pressure 142/78, saturations are 98% on room air, respirations 18, temperature 98, and pulse 72. CHEST: Decreased breath sounds. No wheezing. CARDIAC: Normal S1 and S2. No gallops. ABDOMEN: No masses. LABORATORY DATA: Creatinine is 12. White count 5000, H and H of 10 and 30. ASSESSMENT: 1. End-stage renal disease, glomerulonephritis, on dialysis. 2. Hypertension. PLAN: Pulmonary-posada, no pulmonary issues. He is stable. Continue dialysis. Continue antihypertensive medication. Pulmonary will follow at a distance. Please call if needed. Job ID: [id number]
[2019-06-01] MEDS: Labetalol 100 MG TAB PO SCH ×2 (09:26→21:04)
--- NOTE | 2019-06-01 14:39 | PRG ---
DATE OF SERVICE: 06/01/2019 SUBJECTIVE: Patient was seen and examined at bedside and overnight events noted. Patient denies any shortness of breath or chest pain or palpitation. No history of nausea or vomiting or diarrhea or fever or chills or cramps. OBJECTIVE: GENERAL: This is an obese male, in no acute distress. VITAL SIGNS: Temperature 98.3, heart rate 87. Respiratory rate 18. Blood pressure 138/72. HEENT: Atraumatic, normocephalic. Oral mucosa is moist NECK: Supple. CARDIOVASCULAR: S1, S2 heard. Rate and rhythm regular. RESPIRATORY: Clear to auscultation. GASTROINTESTINAL: Abdomen is soft. MUSCULOSKELETAL: No tenderness. No edema. DERMATOLOGIC: No skin rash. NEUROLOGIC: Alert and awake and oriented X3. No focal neurologic deficits. Moving all the extremities. PSYCHIATRIC: Mood and affect normal. LABORATORY DATA: Potassium is 4.3, BUN 35, and creatinine is 12.1. ASSESSMENT AND PLAN: 1. End-stage renal disease. Continue on dialysis as tolerated. 2. Hypertension. 3. Edema. 4. Anemia. 5. Morbid obesity. Continue on dialysis as tolerated. Job ID: [id number]
--- NOTE | 2019-06-01 15:27 | PRG ---
DATE OF SERVICE: 06/01/2019 SUBJECTIVE: The patient is seen and examined at the bedside. He is not scheduled for any dialysis today. He is sleepy. His appetite is so-so. He did not have bowel movement for a couple of days, but he does not want to have any medications for that. OBJECTIVE: VITAL SIGNS: Blood pressure is 138/72, pulse is 87, temperature is 98.3, respirations are 18, and O2 saturation is 98% on room air. HEENT: His head is atraumatic and normocephalic. Eyes are PERRLA. Sclerae are nonicteric. Oral mucosa is moist. NECK: Supple. LUNGS: Clear. HEART: S1 and S2 normal. No S3. No S4. ABDOMEN: Soft and nontender. EXTREMITIES: No clubbing, cyanosis or edema. He has his fistula on the right arm. LABORATORY DATA: White count of 5.5, hemoglobin 10.4, hematocrit 31.5, and platelet count 100,000. Chemistry normal except for BUN which is 28, creatinine 12.16, calcium 10.5, phosphorus 6.3, and albumin 3.9. IMPRESSION: 1. Hypertensive urgency. 2. End-stage renal disease, requiring a dialysis. The patient was emergently dialyzed for volume overload and hypertensive emergency. He is on Cardene drip and was moved to the telemetry floor. His echocardiogram showed normal LVEF at 60 to 65, moderate systolic anterior motion of anterior leaflet, moderate mitral regurgitation, and moderately dilated left atrium. Also, some asymmetric septal hypertrophy with peak LVOT gradient of 15 mmHg. Continue his current regimen with dialysis as tolerated and nifedipine and clonidine for blood pressure control and will be monitored closely until everything is stable. Job ID: [id number]
[2019-06-02] MEDS: NIFEdipine XL 90 MG TAB PO SCH (08:13)
[2019-06-02] MEDS: cloNIDine 0.2 MG TAB PO SCH ×4 (08:14→21:24)
[2019-06-02] MEDS: Enoxaparin Sodium 30 MG/0.3 ML SYRINGE SC SCH (08:14)
[2019-06-02] MEDS: hydrALAZINE 25 MG TAB PO SCH ×3 (08:14→21:24)
[2019-06-02] MEDS ORDERED: Ondansetron PF 4 MG/2 ML Vial IVP PRN (08:33)
[2019-06-02] MEDS: Labetalol 100 MG TAB PO SCH ×2 (09:08→21:23)
[2019-06-02] MEDS: Sevelamer Carbonate 800 MG TAB PO SCH ×3 (10:04→18:38)
--- NOTE | 2019-06-02 11:33 | PRG ---
DATE OF SERVICE: 06/02/2019 SUBJECTIVE: The patient is seen and examined at bedside. He was planned to go home yesterday, but he was held overnight and the blood pressure is running high this morning. He was supposed to have dialysis today. OBJECTIVE: VITAL SIGNS: Blood pressure is 207/115, pulse 78, respiratory rate is 18, O2 saturation is 98% on room air, his temperature is 98.5. HEENT: His head is atraumatic and normocephalic. Pupils are responding to light properly. Sclerae are nonicteric. Oral mucosa is somewhat dry. NECK: Supple. LUNGS: Clear. HEART: S1 and S2 normal. ABDOMEN: Soft and nontender. The right arm where the fistula is looks good. EXTREMITIES: No clubbing or cyanosis. There is 1+ peripheral edema. NEUROLOGICAL: He is alert and oriented x4. There is no any motor deficits. LABORATORY DATA: Labs none today. IMPRESSION: 1. Hypertensive emergency. 2. End-stage renal disease, requiring dialysis. He will have dialysis today. We will increase his clonidine dose to 0.2 three times a day from twice a day, and the case was discussed with his derrick hand and he is planned to do dialysis as we speak. Job ID: [id number]
--- NOTE | 2019-06-02 12:18 | PRG ---
DATE OF SERVICE: 06/02/2019 SUBJECTIVE: Patient was seen and examined at bedside and overnight events noted. Patient denies any shortness of breath or chest pain or palpitation. No history of nausea or vomiting or diarrhea or fever or chills or cramps. OBJECTIVE: GENERAL: This is an obese male, in no acute distress. VITAL SIGNS: Temperature 98.5. Heart rate 70. Respiratory rate 18. Blood pressure 207/115. HEENT: Atraumatic, normocephalic. Oral mucosa is moist NECK: Supple. CARDIOVASCULAR: S1, S2 heard. Rate and rhythm regular. RESPIRATORY: Clear to auscultation. GASTROINTESTINAL: Abdomen is soft. MUSCULOSKELETAL: No tenderness. No edema. DERMATOLOGIC: No skin rash. NEUROLOGIC: Alert and awake and oriented X3. No focal neurologic deficits. Moving all the extremities. PSYCHIATRIC: Mood and affect normal. LABORATORY DATA: Potassium is 4.3, BUN is 28, creatinine is 12.1. ASSESSMENT AND PLAN: 1. End-stage renal disease. Continue on dialysis; Friday, Friday, and Friday. Will have dialysis today. 2. Hypertension. We will remove fluid dialysis. 3. Edema, remove fluid. 4. Anemia. 5. Morbid obesity. Continue blood pressure medications. We will remove fluid dialysis as tolerated. Job ID: [id number]
[2019-06-02] MEDS: diphenhydrAMINE 25 MG CAP PO PRN (14:56)
[2019-06-03] MEDS ORDERED: Labetalol HCl 100 MG/20 ML VIAL ONE (08:18)
[2019-06-03] MEDS: hydrALAZINE 25 MG TAB PO SCH (08:28)
[2019-06-03] MEDS: cloNIDine 0.2 MG TAB PO SCH ×2 (08:29→16:39)
[2019-06-03] MEDS: NIFEdipine XL 90 MG TAB PO SCH (08:29)
[2019-06-03 09:33] VITALS: TEMP 98.8
[2019-06-03] MEDS ORDERED: hydrALAZINE 25 MG TAB PO SCH ×2 (10:45→21:00)
[2019-06-03] MEDS: Sevelamer Carbonate 800 MG TAB PO SCH ×2 (11:12→12:24)
[2019-06-03] MEDS: Labetalol 100 MG TAB PO SCH (11:13)
[2019-06-03] MEDS: Enoxaparin Sodium 30 MG/0.3 ML SYRINGE SC SCH (11:14)
--- NOTE | 2019-06-03 12:17 | PRG ---
DATE OF SERVICE: 06/03/2019 SUBJECTIVE: Patient was seen and examined at bedside and overnight events noted. Patient denies any shortness of breath or chest pain or palpitation. No history of nausea or vomiting or diarrhea or fever or chills or cramps. OBJECTIVE: GENERAL: This is a morbidly obese male, in no apparent distress. VITAL SIGNS: Temperature 98.8. Heart rate 82. Respiratory rate 18. Blood pressure HEENT: Atraumatic, normocephalic. Oral mucosa is moist NECK: Supple. CARDIOVASCULAR: S1, S2 heard. Rate and rhythm regular. RESPIRATORY: Clear to auscultation. GASTROINTESTINAL: Abdomen is soft. MUSCULOSKELETAL: No tenderness. No edema. DERMATOLOGIC: No skin rash. NEUROLOGIC: Alert and awake and oriented X3. No focal neurologic deficits. Moving all the extremities. PSYCHIATRIC: Mood and affect normal. LABORATORY DATA: Not done today. ASSESSMENT AND PLAN: 1. End-stage renal disease. Have dialysis extra session 3 hours . 2. Hypertension. 3. Edema. 4. Anemia. 5. Morbid obesity. Plan to have dialysis as tolerated. Job ID: [id number]
[2019-06-03 16:40] VITALS: BP 173/103
--- NOTE | 2019-06-04 05:59 | DIS ---
DATE OF ADMISSION: 05/31/2019 DATE OF DISCHARGE: 06/03/2019 FINAL DIAGNOSES AT THE TIME OF DISCHARGE: 1. Hypertensive emergency, improved. 2. End-stage renal disease on dialysis, three times a week. 3. Goodpasture syndrome with end-stage renal disease from 14 years of age and status post failed renal transplant. 4. Hypertension. 5. Status post CMV infected transplanted kidney. CONSULTANTS: 1. Tad Hanks MD for Pulmonary/Critical Care Service. 2. Alison Sofia MD for Nephrology. 3. Monroe Ko MD, Pulmonary/Critical Care. HOSPITAL COURSE: The patient is a 24-year-old male, who presented with hypertensive emergency headache and volume overload. His last dialysis was shorter and he had some alcohol on the 27 of May, which added some additional fluids into his body. He did not complain about any chest pain. No cough. At the time of emergency room evaluation, he had a white count of 4.8, hemoglobin 10, hematocrit 30, platelet count 106, and 46 neutrophils. Bicarb was 27, BUN 42, creatinine 15. Liver function tests were within normal limits. Troponin I x2 negative. CT of the brain without contrast showed no acute intracranial process. Chest x-ray showed cardiomegaly with pulmonary vascular congestion. The patient's blood pressure was up to 220/150. He was placed on Cardene drip at 5 mg/hour and he was continued on his regular home medications which are labetalol, clonidine, Procardia and hydralazine, and he got admitted to the hospital. Dr. Sofia supervised his hemodialysis. He underwent also echocardiogram which showed LVEF estimated at 60% to 65% and asymmetric septal hypertrophy with peak LVOT gradient of 15 mmHg. There was also moderate systolic anterior motion of anterior leaflet, moderate mitral regurgitation and mild tricuspid regurgitation. The patient was informed about the findings and he said that he cannot stay in the hospital any longer because his grandfather just and he needs to attend his , so regardless what we recommend, he has to go. We informed him about the findings on echocardiogram and he will follow up with his primary physician and then with quality controller to check this further and be followed by a specialist. His blood pressure has improved after he received all his medications, it is down to 136/75 and pulse is 75. According to him, his regimen of home medications works but all medications have to be taken at the same time and while in the hospital, he is not getting his normal regimen and those pills are not given at the same time. He will take hydralazine 200 mg twice a day, Renvela 2400 mg three times a day with meals, clonidine 0.2 mg twice a day, nifedipine 90 mg daily, labetalol 400 mg twice a day, Zofran p.r.n. as needed, and Nexium 40 mg once a day p.r.n. as needed. He will continue his hemodialysis 3 times a week. He was seen and examined before his discharge and discharge time is less than 30 minutes. Job ID: [id number]
== END 2019-06-03 16:50 | disposition home or self-care (01) | DRG 304 ==
LOC: ERS 19:19 → CCU 05-31 00:40 → 2NO 05-31 21:26
PROVIDERS: ADMIT Internal Medicine; ATTEND Internal Medicine
PROC: 5A1D70Z Performance of Urinary Filtration, Intermittent, Less than 6 Hours Per Day (ICD-10-PCS; principal; 2019-06-03)
DX: I16.1 Hypertensive emergency (principal); N18.6 End stage renal disease; T86.12 Kidney transplant failure; M31.0 Hypersensitivity angiitis; I08.1 Rheumatic disorders of both mitral and tricuspid valves; I12.0 Hypertensive chronic kidney disease with stage 5 chronic kidney disease or end stage renal disease; F17.290 Nicotine dependence, other tobacco product, uncomplicated; Y83.0 Surgical operation with transplant of whole organ as the cause of abnormal reaction of the patient, or of later complication, without mention of misadventure at the time of the procedure; D64.9 Anemia, unspecified; E66.01 Morbid (severe) obesity due to excess calories; Z88.8 Allergy status to other drugs, medicaments and biological substances; Z91.15 Patient's noncompliance with renal dialysis; Z91.14 Patient's other noncompliance with medication regimen; Z68.24 Body mass index [BMI] 24.0-24.9, adult
CPT/HCPCS: 36415; 70450; 71046; 80048; 80053; 80069; 83735; 84484; 85025; 86706; 87340; 93005; 93306; 94760; 96365; 96375; J0360; J1650; J2270; J2405; J7050; Q0163

== ENCOUNTER 2019-06-20 17:51 | Inpatient (IN) | payer OTHER ==
--- NOTE | 2019-06-20 18:49 | RAD ---
Chest 2 views HISTORY: Dyspnea. COMPARISON: 05/30/2019.. FINDINGS: Cardiac silhouette and pulmonary vasculature remains upper limits of normal. Mediastinum is midline. No confluent airspace consolidation, pneumothorax, or pleural fluid. IMPRESSION: No active cardiopulmonary abnormalities are demonstrated.
[2019-06-20] MEDS ORDERED: Acetaminophen 500 MG TAB ONE (20:05)
[2019-06-20 20:23] LABS: Hemoglobin 9.9 g/dL (14.0-18.0); Mean Corpuscular HGB CONC 33.6 g/dL (32.0-36.0); Mean Corpuscular Volume 95.3 fL (78.0-98.0); Mean Platelet Volume 10.2 fL (7.4-10.4); Platelet Count 83 thou/uL (130-400); RBC Distribution Width 15.2 % (11.5-14.5); White Blood Cell (WBC) Count 3.6 thou/uL (4.8-10.8)
[2019-06-20 20:46] LABS: ALT (SGPT) Less than 7 U/L (8-55); AST (SGOT) 10 U/L (5-34); Albumin 4.2 g/dL (3.5-5.0); Alkaline Phosphatase 96 U/L (40-150); Anion Gap 19 mmol/L (10-20); BUN (Urea Nitrogen) 34 mg/dL (8.9-20.6); Bilirubin, Total 0.7 mg/dL (0.2-1.2); CK (CPK) 127 U/L (30-200); Calc. Creatinine Clearance 0 mL/min (70-130); Calcium 9.7 mg/dL (7.8-10.44); Carbon Dioxide 27 mmol/L (22-29); Chloride 96 mmol/L (98-107); Estimated GFR-MDRD 6; Globulin 2.7 g/dL (2.4-3.5); Glucose 81 mg/dL (70-105); Protein, Total 6.9 g/dL (6.0-8.3); Sodium 138 mmol/L (136-145)
[2019-06-20 21:01] LABS: Band 2 % (5-11); Eosinophils 1 % (0-10); Hypochromia SLIGHT = 6-15 cells (100X) (0-5/hpf); Lymphocytes 24 % (21-51); MDiff Complete? YES; Monocytes 9 % (0-10); Neutrophil 64 % (42-75); Platelet Morphology Comment Appears Adequate
[2019-06-20] MEDS ORDERED: Ondansetron ODT 4 MG TAB ONE (21:06)
[2019-06-20] MEDS ORDERED: niCARdipine 20MG In NaCl 20 MG/200 ML BAG ONE (22:00)
[2019-06-20] MEDS ORDERED: Acetaminophen 325 MG TAB PO PRN (23:43)
[2019-06-20] MEDS ORDERED: Non-Formulary Item 1 EACH (Esomeprazole Magnesium [Nexium] 40 MG) PO PRN (23:44)
[2019-06-21] MEDS ORDERED: cloNIDine 0.1 MG TAB PO PRN (00:12)
[2019-06-21] MEDS: niCARdipine 25 MG in Sodium Chloride 0.9% 250 ML 240 ML IVPB SCH ×2 (00:43→05:02)
[2019-06-21 00:49] VITALS: BMI 23.1
--- NOTE | 2019-06-21 04:12 | HP ---
CHIEF COMPLAINT: Generalized body aches and pains. HISTORY OF PRESENT ILLNESS: The patient is a 24-year-old male with a history of Goodpasture's and also end-stage renal disease on dialysis, who presents to the hospital with complaints of generalized body aches and pains and also a little bit of headache. The patient also started complaining of bilateral lower extremity pain. Initially, the patient stated that he felt like he was volume overloaded. However, he has been compliant with his dialysis which is Friday, Friday, and Friday, and he did attend dialysis on Friday. He denies drinking more water than normal and he has been taking his prescription medications. The patient does report a headache, but denies any nausea, vomiting, or any vision changes. He feels that he has always normally gets headache when he is overloaded. PAST MEDICAL HISTORY: As of the following; 1. Hypertension. 2. End-stage renal disease on dialysis secondary to Goodpasture's. 3. Goodpasture's. 4. Right kidney transplant. 5. Diastolic heart failure. ALLERGIES: HE IS ALLERGIC TO LORACARBEF. MEDICATIONS: Are as of the following; 1. Hydralazine mg b.i.d. 2. Labetalol b.i.d. 3. Nifedipine 90 mg daily. 4. Sevelamer 2400 mg p.o. t.i.d. 5. Esomeprazole 40 mg daily. 6. Clonidine 0.2 b.i.d. REVIEW OF SYSTEMS: All negative except for the ones mentioned above in the HPI. PAST SURGICAL HISTORY: He has had end-stage renal disease. He has had a kidney transplant and he has a graft in his left arm. FAMILY HISTORY: Has a history of hypertension. PHYSICAL EXAMINATION: VITAL SIGNS: Initially, his blood pressure was in the 200s/120, heart rate of 80. He is afebrile at 98.8, and he is 98% on room air. GENERAL: He is awake, alert, and oriented x3. Does not appear in any distress. HEENT: Normocephalic, atraumatic. No lymphadenopathy noted. Pupils are equal and reactive to light. CV: S1 and S2 present. No murmurs, rubs, or gallops. LUNGS: Clear to auscultation. No rhonchi or wheezes noted. ABDOMEN: Soft and nontender. Bowel sounds are present x2. EXTREMITIES: He has just mild little bit +1 lower extremity pitting edema. NEUROVASCULAR: No focal deficits noted. SKIN: No cuts or lesions noted. He does have a fistula to his left arm which has good bruit and good thrill. LABORATORY RESULTS: As of the following: His WBCs are 3.6, hemoglobin of 9.9, hematocrit of 29.5, his platelets are 83. Chemistry; sodium of 138, potassium of 4.0, BUN of 24, creatinine of 13.46. He did have a chest x-ray which indicated cardiomegaly and patchy interstitial opacities. Chest x-ray of according to my interpretation just seems to have a little bit of volume overload, just some pulmonary vascular congestion. ASSESSMENT AND PLAN: The patient is a 24-year-old male who presents to the hospital with complaints of generalized body aches and pains and possible lower extremity swelling. 1. Hypertensive urgency. The patient's blood pressure in the ER was found to be 200s over 100s. He has been given all of his home medications, and after his blood pressures have been checked and still continues to be elevated. At this time, he has been started on a Cardene drip and he will be transferred to the ICU for closer monitoring. 2. Headache, most likely secondary possible to his elevated blood pressure. 3. End-stage renal disease, on dialysis secondary to Goodpasture's. I will consult Nephrology and start him on dialysis which he is going to receive on Friday. 4. Chronic anemia, most likely looks anemia of chronic disease, most likely secondary to his underlying renal disease. We will continue to monitor. No interventions as of yet. 5. Deep venous thrombosis prophylaxis. We will put the patient on some sequential compression devices and possible subcu heparin. Job ID: [id number]
[2019-06-21] MEDS ORDERED: diphenhydrAMINE 25 MG CAP PO SCH (04:45)
[2019-06-21 04:48] LABS: Anion Gap 18 mmol/L (10-20); BUN (Urea Nitrogen) 35 mg/dL (8.9-20.6); Calc. Creatinine Clearance 9 mL/min (70-130); Calcium 9.4 mg/dL (7.8-10.44); Carbon Dioxide 26 mmol/L (22-29); Chloride 95 mmol/L (98-107); Estimated GFR-MDRD 5; Glucose 95 mg/dL (70-105); Potassium 3.7 mmol/L (3.5-5.1); Sodium 135 mmol/L (136-145)
[2019-06-21 04:59] LABS: Band 1 % (5-11); Hemoglobin 9.9 g/dL (14.0-18.0); Hypochromia SLIGHT = 6-15 cells (100X) (0-5/hpf); Lymphocytes 20 % (21-51); MDiff Complete? YES; Mean Corpuscular HGB CONC 33.4 g/dL (32.0-36.0); Mean Corpuscular Hemoglobin 32.1 pg (27.0-31.0); Mean Corpuscular Volume 96.2 fL (78.0-98.0); Mean Platelet Volume 10.2 fL (7.4-10.4); Metamyelocyte 1 % (0-0); Monocytes 6 % (0-10); Neutrophil 72 % (42-75); Platelet Count 72 thou/uL (130-400); Platelet Morphology Comment Appears Adequate; RBC Distribution Width 15.2 % (11.5-14.5); Red Blood Cell (RBC) Count 3.07 mill/uL (4.70-6.10); White Blood Cell (WBC) Count 3.5 thou/uL (4.8-10.8)
[2019-06-21] MEDS: Sevelamer Carbonate 800 MG TAB PO SCH ×3 (08:38→18:04)
[2019-06-21] MEDS: cloNIDine 0.2 MG TAB PO SCH ×2 (08:39→23:13)
[2019-06-21] MEDS: Labetalol 100 MG TAB PO SCH ×2 (08:40→23:12)
[2019-06-21] MEDS: NIFEdipine XL 90 MG TAB PO SCH (08:41)
[2019-06-21] MEDS ORDERED: Non-Formulary Item 1 EACH (Nifedipine [Nifedipine Er] 90 MG) PO SCH (09:00)
[2019-06-21] MEDS ORDERED: hydrALAZINE 25 MG TAB PO SCH ×2 (09:00→21:00)
--- NOTE | 2019-06-21 15:29 | CON ---
DATE OF CONSULTATION: REASON FOR CONSULTATION: End-stage renal disease for maintenance hemodialysis. HISTORY OF PRESENT ILLNESS: This is a very pleasant 24-year-old gentleman, presented to the hospital with hypertensive urgency, so we were called to initiate dialysis. The patient denies any nausea, vomiting, or chest pain. The patient denies taking any drugs, but uses marijuana. PAST MEDICAL HISTORY: Significant for hypertension, end-stage renal disease, Goodpasture disease, kidney transplant, and diastolic heart failure. MEDICATIONS: Home medications: List hospital. Hospital medications: List reviewed. ALLERGIES: REVIEWED. REVIEW OF SYSTEMS: Fifteen-point review of system was performed negative except for positives noted above. GENERAL: HEAD: NECK: No swelling or lumps. NOSE: No epistaxis or discharge. EYES: No diplopia or pain. RESPIRATORY: CARDIOVASCULAR: GASTROINTESTINAL: /CONTRACT ATTORNEY: MUSCULOSKELETAL: No joint pain. The patient has had AV fistula and tunneled dialysis catheter. NEUROPSYCHIATIC SYSTEMS: No suicidal ideation. No ideation. SKIN: Denies any rash or ulcer. CONSTITUTIONAL: No fever or chills. FAMILY HISTORY: Negative for ESRD. PHYSICAL EXAMINATION: CONSTITUTIONAL: On examination, the patient is awake and alert. VITAL SIGNS: Afebrile, pulse 62, breathing 16, and blood pressure 118/64. GENERAL APPEARANCE AND MENTAL STATUS: Fair. HEAD/NECK: Normocephalic. Atraumatic. EYES: EOMI. No deformity. EARS: Clear. No ulcers. NOSE: Intact. No lesions. MOUTH: Clear. No discharge. THROAT: Clear. No exudate. LUNGS: Clear. No crackles. CARDIAC: S1, S2. No rub. ABDOMEN: Benign. Bowel sounds positive. GENITALIA/RECTUM: Pimentel absent. BACK/EXTREMITIES: Edema 0+. NEUROLOGICAL: Alert and motor intact. SKIN: LYMPHATICS: LABORATORY DATA: Reviewed. ASSESSMENT AND PLAN: 1. Stage 6, chronic kidney disease. Plan dialysis. 2. Hypertension, stable. 3. Anemia, stable. 4. Medications based on glomerular filtration rate are appropriate. Job ID: [id number]
--- NOTE | 2019-06-21 17:41 | PDOC.HOSPP ---
- Subjective Subjective: Pt seen for followup re: hypertensive urgency. Says he feels well. - Objective Vital Signs & Weight: Vital Signs (12 hours) Temp Pulse BP Pulse Ox 06/21/19 16:00 98.1 F 06/21/19 12:00 98.0 F 06/21/19 08:44 89 159/87 H 06/21/19 08:41 89 159/87 H 06/21/19 08:40 89 159/87 H 06/21/19 08:39 159/87 H 06/21/19 08:05 96 06/21/19 08:00 98.4 F Weight Weight 179 lb 14.355 oz Most Recent Monitor Data Heart Rate from ECG 81 NIBP 169/100 NIBP BP-Mean 123 Respiration from ECG 25 SpO2 96 I&O: 06/20/19 06/21/19 06/22/19 06:59 06:59 06:59 Intake Total 511 1046 Output Total 0 Balance 511 1046 Result Diagrams: 06/21/19 03:57 06/21/19 03:57 Additional Labs: Labs and MARs reviewed by me EKG Reviewed by me: Yes (Tele: NSR) ROS - Review of Systems All systems: All other ROS were reviewed and found negative. Cardiovascular: denies: chest pain, palpitations, orthopnea, paroxysmal noc. dyspnea, edema, light headedness Gastrointestinal: denies: nausea, vomitting, abdominal pain, diarrhea, constipation, melena, hematochezia - Medication Medications: Active Medications Generic Name Dose Route Start Last Admin Trade Name Freq PRN Reason Stop Dose Admin Clonidine 0.2 mg 06/21/19 09:00 06/21/19 08:39 Catapres PO 0.2 mg BID ALANNA Administration Nicardipine HCl 25 mg/ Sodium 250 mls @ 0 mls/hr 06/21/19 00:15 06/21/19 05: 02 Chloride IVPB 250 mls INF ALANNA Administration Protocol Titrate Labetalol HCl 400 mg 06/21/19 09:00 06/21/19 08:40 Normodyne PO 400 mg BID ALANNA Administration Nifedipine 90 mg 06/21/19 09:00 06/21/19 08:41 Procardia Xl PO 90 mg DAILY ALANNA Administration Pantoprazole Sodium 40 mg 06/20/19 23:55 06/21/19 10:05 Protonix PO 40 mg DAILY PRN Administration Indigestion Sevelamer Carbonate 2,400 mg 06/21/19 08:00 06/21/19 11:54 Renvela PO 2,400 mg TID-WM ALANNA Administration Sodium Chloride 10 ml 06/21/19 09:00 06/21/19 08:41 Flush - Normal Saline IVF 10 ml Q12HR ALANNA Administration - Exam NAD Eye: anicteric sclera ENT: normocephalic atraumatic Neck: supple Heart: RRR Respiratory: CTAB Gastrointestinal: soft Neurological: CN's grossly intact Psychiatric: normal affect Hosp A/P (1) Hypertensive urgency Code(s): I16.0 - HYPERTENSIVE URGENCY Status: Acute (2) ESRD (end stage renal disease) on dialysis Code(s): N18.6 - END STAGE RENAL DISEASE; Z99.2 - DEPENDENCE ON RENAL DIALYSIS Status: Chronic (3) GERD (gastroesophageal reflux disease) Code(s): K21.9 - GASTRO-ESOPHAGEAL REFLUX DISEASE WITHOUT ESOPHAGITIS Status: Chronic Qualifiers: Esophagitis presence: esophagitis presence not specified Qualified Code(s) : K21.9 - Gastro-esophageal reflux disease without esophagitis - Plan out of bed/ambulate Blood pressure improved with Cardene drip. Dialysis per nephrology service, pt to have dialysis today GERD stable
[2019-06-21] MEDS ORDERED: diphenhydrAMINE 25 MG CAP PO PRN (18:31)
--- NOTE | 2019-06-22 01:36 | CON ---
DATE OF CONSULTATION: 06/21/2019 HISTORY OF PRESENT ILLNESS: Mr. Martínez is a 24-year-old male, who apparently was diagnosed when he was 14 years old, having Goodpasture's renal disease. He presented at age 14 with severe renal insufficiency, but did not start dialysis at that time. He eventually required dialysis and later underwent renal transplant. Apparently, this transplant eventually failed and he is on the list again, but is now on hemodialysis. He has a history of hypertension, taking multiple medicines for this and diastolic heart failure. He says he has been compliant with taking his medicines. He will admit that he has not been exactly compliant with his fluid restriction and how he should be eating. He says he has been taking his medicines, but I am told he refused medicine yesterday afternoon or did not take them. He presented with headache and myalgias. He says he is feeling better. PAST MEDICAL HISTORY: Otherwise, unremarkable. SOCIAL HISTORY: He is a nonsmoker and nondrinker. FAMILY HISTORY: Positive for hypertension. MEDICATIONS: Prior to admission, he was on: 1. 100 hydralazine in the morning, 200 in the evening. 2. Labetalol. 3. Catapres 0.2 twice a day. 4. Procardia XL 90 a day. 5. Sevelamer 2400 mg t.i.d. 6. Esomeprazole 40 mg a day. REVIEW OF SYSTEMS: Ten-point review of systems completed, otherwise negative. PHYSICAL EXAMINATION: GENERAL: He is comfortable lying flat in bed. VITAL SIGNS: He just weaned off Cardene when I saw him this morning. Blood pressure this afternoon is 168/98, heart rate 77, respiratory rates in the teens. HEENT: Pupils are equal. Sclerae anicteric. NECK: Supple. LUNGS: Remarkable for fine crackles at his bases. HEART: Regular rhythm. He has an S4. He has a grade 2/6 systolic murmur. ABDOMEN: Soft and nontender. EXTREMITIES: Without clubbing, cyanosis, or edema. He has very large graft in his right upper extremity. LABORATORY DATA: White count 3.5, hemoglobin 9.9, platelet 72,000. Sodium 135, potassium 3.7, chloride 95, bicarb 26, BUN 35, creatinine 14.12. BNP was 1549. IMPRESSION: 1. Hypertension, poorly controlled. 2. End-stage renal disease, status post transplant failure on hemodialysis. 3. Dietary noncompliance with his renal failure. 4. Long history of hypertension. 5. History of Goodpasture's disease affecting his kidney, but never having any lung disease by his history. He is stable to move out of Critical Care Unit in my opinion. This is a 70 minute consult, with greater than 50% of time spent on unit coordinating care. Job ID: [id number] MTDD
[2019-06-22] MEDS: niCARdipine 25 MG in Sodium Chloride 0.9% 250 ML 240 ML IVPB SCH (07:36)
[2019-06-22] MEDS: Labetalol 100 MG TAB PO SCH (08:23)
[2019-06-22] MEDS: cloNIDine 0.2 MG TAB PO SCH (08:23)
[2019-06-22 08:24] VITALS: BP 185/114
[2019-06-22] MEDS: Sevelamer Carbonate 800 MG TAB PO SCH ×2 (08:24→12:24)
[2019-06-22] MEDS ORDERED: hydrALAZINE 25 MG TAB PO SCH (09:00)
[2019-06-22] MEDS: NIFEdipine XL 90 MG TAB PO SCH (09:02)
[2019-06-22] MEDS ORDERED: NIFEdipine XL 30 MG TAB PO PRN (11:06)
--- NOTE | 2019-06-22 11:57 | PRG ---
DATE OF SERVICE: 06/22/2019 SUBJECTIVE: This is a 24-year-old gentleman being seen for end-stage renal disease. The patient denied any nausea, vomiting, or chest pain. OBJECTIVE: CONSTITUTIONAL: On examination, the patient is awake and alert. VITAL SIGNS: Afebrile, pulse 75, breathing 16, and blood pressure 154/80. GENERAL APPEARANCE AND MENTAL STATUS: Fair. HEAD/NECK: Normocephalic. Atraumatic. EYES: EOMI. No deformity. EARS: Clear. No ulcers. NOSE: Intact. No lesions. MOUTH: Clear. No discharge. THROAT: Clear. No exudate. LUNGS: Clear. No crackles. CARDIAC: S1, S2. No rub. ABDOMEN: Benign. Bowel sounds positive. GENITALIA/RECTUM: Pimentel absent. BACK/EXTREMITIES: Edema 0+. NEUROLOGICAL: Alert and motor intact. SKIN: LYMPHATICS: LABORATORY DATA: Reviewed. ASSESSMENT AND PLAN: 1. Stage 6 chronic kidney disease. Continue hemodialysis. 2. Hypertension, stable. 3. Anemia, stable. 4. Medications based on glomerular filtration rate are appropriate. Job ID: [id number]
[2019-06-22 12:12] LABS: #Eosinphils 0.4 thou/uL (0.0-0.7); #Lymphocytes 0.8 thou/uL (1.20-3.40); #Monocytes 0.4 thou/uL (0.11-0.59); #Neutrophils 1.8 thou/uL (1.40-6.50); %Basophils 0.4 % (0.0-1.0); %Lymphocytes 23.1 % (21.0-51.0); %Monocytes 11.3 % (0.0-10.0); %Neutrophils 54.1 % (42.0-75.0); Mean Corpuscular HGB CONC 33.6 g/dL (32.0-36.0); Mean Corpuscular Hemoglobin 32.4 pg (27.0-31.0); Mean Corpuscular Volume 96.5 fL (78.0-98.0); Mean Platelet Volume 9.9 fL (7.4-10.4); Platelet Count 85 thou/uL (130-400); RBC Distribution Width 15.1 % (11.5-14.5); Red Blood Cell (RBC) Count 3.07 mill/uL (4.70-6.10); White Blood Cell (WBC) Count 3.4 thou/uL (4.8-10.8)
[2019-06-22 12:20] VITALS: TEMP 98.5
[2019-06-22 12:29] LABS: Anion Gap 10 mmol/L (10-20); BUN (Urea Nitrogen) 20 mg/dL (8.9-20.6); Calc. Creatinine Clearance 14 mL/min (70-130); Calcium 10.3 mg/dL (7.8-10.44); Carbon Dioxide 31 mmol/L (22-29); Chloride 99 mmol/L (98-107); Estimated GFR-MDRD 8; Glucose 82 mg/dL (70-105); Potassium 4.7 mmol/L (3.5-5.1); Sodium 135 mmol/L (136-145)
--- NOTE | 2019-06-22 13:55 | PRG ---
DATE OF SERVICE: 06/22/2019 SUBJECTIVE: Estee Martínez has no complaints. He says blood pressure goes up when he goes to sleep. I inquired about sleep apnea. He said when he was a teenager he was told he had sleep apnea, but he has never followed up with this. OBJECTIVE: VITAL SIGNS: He is afebrile, heart rate is 83, blood pressure 146/78, and respiratory rates in the teens. LUNGS: Clear. HEART: Regular rhythm. ABDOMEN: Soft. LABORATORY DATA: White count 3.4, hemoglobin 10.0, platelets 85,000. Sodium 135, potassium 4.7, chloride 99, bicarb 31, BUN 20, and creatinine 9.46. IMPRESSION: 1. Marginally controlled hypertension. 2. Goodpasture's disease involving kidney. 3. Status post transplant with eventual rejection. 4. Ongoing hemodialysis. 5. Sleep apnea, diagnosed in the past. He needs another outpatient sleep study. I suspect his blood pressure will be easier to control if we can get his sleep apnea under control. I spent approximately 30 minutes talking to him about sleep apnea, hypertension, etc. I have explained to him that at 24 years of age, his hypertension is not really an issue, but within 10 to 15 years he may start having vascular issues with his heart or his brain. It is imperative that we get his blood pressure under control. He appeared to have a grasp of this at the end of the conversation. Hopefully, he will keep follow up with me. I have given him my phone number. I asked him to follow up with me in 3 to 4 weeks. Job ID: [id number]
--- NOTE | 2019-06-22 15:48 | DIS ---
DATE OF ADMISSION: 06/21/2019 DATE OF DISCHARGE: 06/22/2019 PRIMARY CARE PROVIDER: Dr. Enoch Zeng. DISCHARGE DIAGNOSES: 1. Hypertensive urgency. 2. Hyponatremia. CONDITION OF PATIENT ON THE DAY OF DISCHARGE: Stable. I assessed Mr. Martínez on the day of discharge. He denies any chest pain or shortness of breath. Vital signs are stable. S1 and S2 are heard, regular. Lungs are clear to auscultation bilaterally. CONSULTATIONS DURING THIS HOSPITALIZATION: Nephrology, Dr. Arrieta and Pulmonary and Critical Care Medicine, Dr. Oliver. DISCHARGE MEDICATIONS: 1. Zofran 4 mg every 6 hours as needed. 2. Nexium 40 mg daily as needed. 3. Apresoline 200 mg in the morning and 100 mg in the evening. 4. Labetalol 400 mg 2 times a day. 5. Nifedipine 90 mg daily. 6. Renvela 2400 mg 3 times a day. 7. Vitamin B complex 1 tablet daily. 8. Clonidine 0.2 mg 2 times a day. HOSPITAL COURSE: Mr. Martínez is a pleasant 24-year-old gentleman, who was admitted to [facility] on June 21, 2019, for hypertensive urgency. He was admitted to the critical care unit and was treated with Cardene drip. He improved in terms of blood pressure. He was seen by Pulmonary and Critical Care Medicine as well as by Nephrology Service. He underwent maintenance hemodialysis on June 21, 2019. On June 22, the patient is asymptomatic. His blood pressure was high in the morning, but it started trending down after he received his home blood pressure medications. He is being discharged home in a stable condition. On the day of discharge, he has sodium 135, potassium 4.7, blood urea nitrogen 20, creatinine 9.46, white count 3400, hemoglobin 10, and platelet count 85,000. FOLLOWUP APPOINTMENTS: The patient has been advised to follow up with his primary care provider in 3 to 5 days' time. Many thanks for allowing me to participate in your patient's care. Please feel free to contact me with any questions or concerns. DISCHARGE DESTINATION: Home. TIME SPENT: Total amount of time spent coordinating this discharge: 32 minutes. Job ID: [id number]
--- NOTE | 2019-06-23 15:41 | EKG ---
Test Reason : Blood Pressure : / mmHG Vent. Rate : 075 BPM Atrial Rate : 075 BPM P-R Int : 140 ms QRS Dur : 100 ms QT Int : 420 ms P-R-T Axes : 029 020 039 degrees QTc Int : 469 ms Normal sinus rhythm Minimal voltage criteria for LVH, may be normal variant Septal infarct , age undetermined Abnormal ECG Confirmed by CHRIS FERREIRA, RACHEL Wakefield ([id number]), editor trade journal DERREK GARCIA ([id number]) on 06/23/2019 3:40:55 PM Referred By: Confirmed By:RACHEL PEREZ MD
== END 2019-06-22 15:20 | disposition home or self-care (01) | DRG 304 ==
LOC: ERS 17:51 → CCU 06-21 00:27
PROVIDERS: ADMIT Internal Medicine; ATTEND Internal Medicine
DX: I16.0 Hypertensive urgency (principal); N18.6 End stage renal disease; I50.32 Chronic diastolic (congestive) heart failure; M31.0 Hypersensitivity angiitis; E87.1 Hypo-osmolality and hyponatremia; Z94.0 Kidney transplant status; I13.2 Hypertensive heart and chronic kidney disease with heart failure and with stage 5 chronic kidney disease, or end stage renal disease; D63.1 Anemia in chronic kidney disease; K21.9 Gastro-esophageal reflux disease without esophagitis; Z99.2 Dependence on renal dialysis; Z91.018 Allergy to other foods; Z79.899 Other long term (current) drug therapy
CPT/HCPCS: 36415; 71046; 80048; 80053; 82550; 83880; 84484; 85025; 90935; 93005; 96365; 96366; G0257; J7050; Q0162; Q0163

== ENCOUNTER 2019-07-02 21:04 | Emergency (ER) | payer OTHER ==
[2019-07-02 22:08] LABS: #Eosinphils 0.2 thou/uL (0.0-0.7); #Lymphocytes 1.1 thou/uL (1.20-3.40); #Monocytes 0.9 thou/uL (0.11-0.59); #Neutrophils 4.1 thou/uL (1.40-6.50); %Basophils 0.1 % (0.0-1.0); %Eosinophils 2.8 % (0.0-10.0); %Lymphocytes 17.6 % (21.0-51.0); %Monocytes 13.8 % (0.0-10.0); %Neutrophils 65.8 % (42.0-75.0); Hemoglobin 10.6 g/dL (14.0-18.0); Mean Corpuscular HGB CONC 32.9 g/dL (32.0-36.0); Mean Corpuscular Hemoglobin 30.9 pg (27.0-31.0); Mean Corpuscular Volume 93.9 fL (78.0-98.0); Mean Platelet Volume 9.4 fL (7.4-10.4); Platelet Count 101 thou/uL (130-400); RBC Distribution Width 15.5 % (11.5-14.5); Red Blood Cell (RBC) Count 3.43 mill/uL (4.70-6.10); White Blood Cell (WBC) Count 6.3 thou/uL (4.8-10.8)
[2019-07-02 22:22] LABS: ALT (SGPT) Less than 7 U/L (8-55); AST (SGOT) 10 U/L (5-34); Albumin 4.4 g/dL (3.5-5.0); Alkaline Phosphatase 97 U/L (40-150); Anion Gap 19 mmol/L (10-20); BUN (Urea Nitrogen) 15 mg/dL (8.9-20.6); Bilirubin, Total 0.6 mg/dL (0.2-1.2); CK (CPK) 111 U/L (30-200); Calc. Creatinine Clearance 0 mL/min (70-130); Calcium 10.5 mg/dL (7.8-10.44); Carbon Dioxide 27 mmol/L (22-29); Chloride 97 mmol/L (98-107); Estimated GFR-MDRD 10; Globulin 2.6 g/dL (2.4-3.5); Glucose 91 mg/dL (70-105); Lipase 22 U/L (8-78); Potassium 3.9 mmol/L (3.5-5.1); Sodium 139 mmol/L (136-145)
[2019-07-02] MEDS ORDERED: HYDROcodone/Acetaminophen 10/325 mg Tablet ONE (22:43)
--- NOTE | 2019-07-02 23:42 | RAD ---
XR Chest 1 View Portable History: Chest pain Comparison: Radiograph June 20, 2019 Findings: Mild pulmonary edema. Heart size mildly enlarged. Trace effusions. No pneumothorax. Impression: Mild pulmonary edema.
[2019-07-02] MEDS ORDERED: cloNIDine 0.1 MG TAB ONE (23:51)
== END 2019-07-02 23:55 | disposition home or self-care (01) ==
LOC: ERS 21:04
DX: R07.9 Chest pain, unspecified (principal); M79.18 Myalgia, other site; I12.0 Hypertensive chronic kidney disease with stage 5 chronic kidney disease or end stage renal disease; N18.6 End stage renal disease; Z99.2 Dependence on renal dialysis; Z79.899 Other long term (current) drug therapy
CPT/HCPCS: 36415; 71045; 80053; 82550; 83690; 84484; 85025; 93005

== ENCOUNTER 2019-07-04 10:12 | Observation (INO) | payer OTHER ==
[2019-07-04] MEDS ORDERED: Morphine 4 MG/ML VIAL ONE ×2 (10:48→12:30)
[2019-07-04] MEDS ORDERED: Ondansetron PF 4 MG/2 ML Vial ONE (10:49)
[2019-07-04] MEDS ORDERED: Aspirin Chewable 81 MG TAB ONE ×2 (10:49→10:50)
[2019-07-04] MEDS ORDERED: Nitroglycerin 0.4 MG TAB 1 EACH ONE (10:49)
[2019-07-04 11:00] LABS: Hemoglobin 10.5 g/dL (14.0-18.0); Mean Corpuscular HGB CONC 32.9 g/dL (32.0-36.0); Mean Corpuscular Hemoglobin 30.7 pg (27.0-31.0); Mean Corpuscular Volume 93.6 fL (78.0-98.0); RBC Distribution Width 15.4 % (11.5-14.5); Red Blood Cell (RBC) Count 3.41 mill/uL (4.70-6.10); White Blood Cell (WBC) Count 6.5 thou/uL (4.8-10.8)
[2019-07-04 11:14] LABS: #Eosinphils 0.2 thou/uL (0.0-0.7); #Lymphocytes 0.9 thou/uL (1.20-3.40); #Monocytes 0.7 thou/uL (0.11-0.59); #Neutrophils 4.7 thou/uL (1.40-6.50); %Basophils 0.1 % (0.0-1.0); %Lymphocytes 14.4 % (21.0-51.0); %Monocytes 10.8 % (0.0-10.0); %Neutrophils 71.7 % (42.0-75.0); Large Platelets SLIGHT; MDiff Complete? YES; Mean Platelet Volume 9.6 fL (7.4-10.4); Platelet Count 92 thou/uL (130-400); Platelet Morphology Comment Appears Decreased; Schistocytes SLIGHT = 2-5 cells (100X) (0-1/hpf)
[2019-07-04 11:23] LABS: ALT (SGPT) Less than 7 U/L (8-55); AST (SGOT) 9 U/L (5-34); Albumin 4.3 g/dL (3.5-5.0); Alkaline Phosphatase 88 U/L (40-150); Anion Gap 19 mmol/L (10-20); BUN (Urea Nitrogen) 35 mg/dL (8.9-20.6); Bilirubin, Total 0.5 mg/dL (0.2-1.2); CK (CPK) 75 U/L (30-200); Calc. Creatinine Clearance 0 mL/min (70-130); Calcium 10.8 mg/dL (7.8-10.44); Carbon Dioxide 27 mmol/L (22-29); Chloride 94 mmol/L (98-107); Estimated GFR-MDRD 6; Globulin 2.8 g/dL (2.4-3.5); Glucose 111 mg/dL (70-105); Protein, Total 7.1 g/dL (6.0-8.3); Sodium 136 mmol/L (136-145)
--- NOTE | 2019-07-04 11:25 | RAD ---
PORTABLE AP CHEST XRAY: HISTORY: Chest pain and rapid heart rate with onset 3 days ago. Chills and nausea. COMPARISON: 07/02/2019. FINDINGS: The cardiac silhouette remains enlarged. Pulmonary vasculature is similar to the prior exam. No con solidation or pleural fluid is seen. There is a radiopaque density overlying the right supraclavicul ar region which appears to represent a peripheral intravenous catheter. No other interval change. IMPRESSION: Cardiomegaly with pulmonary vasculature at the upper limits of normal. Correlation for mild congesti ve heart failure is suggested. POS: [place]
[2019-07-04 11:42] LABS: CKMB 1.1 ng/mL (0-6.6)
[2019-07-04] MEDS ORDERED: Ketorolac Tromethamine 30 MG/ML VIAL ONE (12:30)
[2019-07-04 14:04] LABS: Troponin I 0.027 ng/mL (< 0.028)
[2019-07-04 15:19] VITALS: BMI 24.3
[2019-07-04] MEDS ORDERED: Bisacodyl 10 MG SUPP PR PRN (15:22)
[2019-07-04] MEDS ORDERED: Ondansetron ODT 4 MG TAB PO PRN (15:22)
[2019-07-04] MEDS ORDERED: Senokot S 8.6-50 MG TAB PO PRN (15:22)
[2019-07-04] MEDS ORDERED: Acetaminophen 325 MG TAB PO PRN (15:22)
[2019-07-04] MEDS ORDERED: Ondansetron PF 4 MG/2 ML Vial IVP PRN (15:22)
[2019-07-04] MEDS: HYDROcodone/Acetaminophen 5/325 mg Tablet PO PRN ×2 (15:55→21:29)
[2019-07-04] MEDS: Sevelamer Carbonate 800 MG TAB PO SCH (16:27)
--- NOTE | 2019-07-04 16:32 | HP ---
PRIMARY CARE PHYSICIAN: Enoch Zeng. CHIEF COMPLAINT: Worsening chest pain. HISTORY OF PRESENT ILLNESS: A 24-year-old male patient with known history of end-stage renal disease from Goodpasture disease, status post failed renal transplant, currently on hemodialysis, who presents with persistent/worsening chest pain. The patient reportedly developed chest pain after dialysis on July 02. He reportedly presented to the emergency room, where he was evaluated and discharged to home same day. Since discharge, he reported that chest pain progressively has gotten worse and he had an episode of emesis earlier today, hence re-presentation to the emergency room. He rates his pain at that time I saw him at 4/10, but at its worst severity, it was about 9 to 10/10. He reported chills, but denied fever. There was no associated shortness of breath or cough, leg swelling, abdominal pain, headache, or dizziness. In the emergency room, he was treated with ketorolac, morphine, as well as Zofran with improvement of pain from severity of 9 to 10/10 to 4/10 currently. PAST MEDICAL HISTORY: 1. Hypertension. 2. End-stage renal disease, on hemodialysis. 3. Goodpasture disease. 4. Chronic diastolic heart failure. 5. Moderate mitral regurgitation. 6. Status post renal transplant. 7. Pulmonary hypertension. PAST SURGICAL HISTORY: 1. AV fistula creation, AV fistula resection. 2. Renal transplant. FAMILY HISTORY: Significant for hypertension and diabetes in mother. SOCIAL HISTORY: The patient lives with family. Admitted to marijuana smoking, but denied tobacco use. Occasionally drinks alcohol, but denied recreational drug use. ALLERGIES: LORACARBEF. HOME MEDICATIONS: 1. Zofran ODT 4 mg q.6 p.r.n. for nausea. 2. p.o. daily p.r.n. 3. Hydralazine 200 mg in the morning and 100 mg in the evening. 4. Labetalol 400 mg p.o. b.i.d. 5. Nifedipine 90 mg p.o. daily. 6. Sevelamer 2400 mg p.o. t.i.d. with meals. 7. Vitamin B complex 1 tablet p.o. daily. 8. Clonidine 0.2 mg p.o. b.i.d. REVIEW OF SYSTEMS: 12-point review of system performed was negative other than pertinent positives and negatives included in the history of present illness. PHYSICAL EXAMINATION: VITAL SIGNS: Temperature 97.6, pulse 86, respiratory rate 28, SpO2 of 99% on room air, blood pressure is 133/84. GENERAL: Chronically ill-looking young male, in no obvious distress. Afebrile. Anicteric. Acyanotic. HEENT: Normocephalic and atraumatic. Pupils are reacting to light. NECK: Supple, nontender with full range of motion. No masses appreciated. CARDIOVASCULAR: Regular rhythm and rate with normal heart sounds 1 and 2. 3/6 systolic murmur maximal at the mitral area noted. RESPIRATORY: Good air entry bilaterally with no obvious crackle or rhonchi or use of accessory muscles. GI: Full, soft, nontender, nondistended with normal bowel sounds. EXTREMITIES: Lower extremities are grossly normal and atraumatic with no edema or erythema. Left arm scars of prior AV graft/fistula creation and resection noted. 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 ASSET ANALYST: Conscious, alert, oriented x3 with appropriate mental status. PSYCHIATRIC: Normal affect and cooperative. DIAGNOSTIC DATA: CBC showed WBC count of 6.5, hemoglobin of 10.5, MCV of 93.6, platelets of 92. BMP showed sodium 136, potassium 4.0, chloride 94, CO2 of 27, BUN 35, creatinine 13.29, glucose 111, calcium 10.8, total bilirubin 0.5, AST 9, ALT less than 7, alkaline phosphatase 88, total protein 7.1, albumin 4.3, globulin 2.8. Initial cardiac markers showed CK 75, CK-MB 1.1. Troponin 0.030. Repeat troponin 3 hours later showed 0.027. EKG showed normal sinus rhythm with left ventricular hypertrophy. No obvious ischemic changes were noted. Chest x-ray showed cardiomegaly with pulmonary vasculature at the upper limits of normal. ASSESSMENT: 1. Atypical chest pain: Initial troponin was marginally elevated, but subsequent one 3 hours later was back to normal range. The patient though young at 24 years of age is at increased risk of coronary artery disease given end-stage renal disease, on hemodialysis. He has hypertension and end-stage renal disease. 2. Mild elevation in troponin. 3. Hypertension. 4. End-stage renal disease, on hemodialysis. 5. History of Goodpasture disease. 6. Moderate mitral regurgitation. 7. Asymmetric left ventricular hypertrophy. 8. Chronic diastolic heart failure. 9. Pulmonary hypertension. PLAN: 1. We will rule out acute myocardial infarction with serial troponin. 2. We will further risk stratify the patient with nuclear stress test. 3. We will also get echocardiogram to rule out pericarditis. 4. Nephrology consult will be requested for end-stage renal disease management. 5. We will continue his usual antihypertensives. 6. Telemetry will be continued. 7. Diet will be provided as well. It is anticipated that the patient will be in hospital for less than 2 midnights hence in observation status. Job ID: [id number]
[2019-07-04 17:30] LABS: Troponin I 0.021 ng/mL (< 0.028)
[2019-07-04] MEDS ORDERED: hydrOXYzine 25 MG TAB PO PRN (20:15)
[2019-07-04] MEDS: cloNIDine 0.2 MG TAB PO SCH (20:32)
[2019-07-04] MEDS: Labetalol 100 MG TAB PO SCH (20:32)
--- NOTE | 2019-07-05 04:00 | CON ---
DATE OF CONSULTATION: 07/04/2019 CONSULTING PHYSICIAN: Dr. Petersen. REASON FOR CONSULTATION: End-stage renal disease evaluation and care. REASON FOR ADMISSION: Chest pain. HISTORY OF PRESENT ILLNESS: This is a 24-year-old male with history of end-stage renal disease, hypertension, history of renal transplant, came to the hospital with chest pain and is being evaluated. Nephrology was consulted for maintenance hemodialysis. He gets dialysis on Friday, Friday, Friday and last dialysis was on Friday. Denies any shortness of breath, chest pain, nausea, or vomiting. No abdominal pain. PAST MEDICAL HISTORY: Positive for end-stage renal disease, hypertension, diastolic heart failure, history of renal transplant. PAST SURGICAL HISTORY: Renal transplant, AV fistula. HOME MEDICATIONS: 1. Zofran. 2. Hydralazine. 3. Labetalol. 4. Nifedipine. 5. Sevelamer. 6. Vitamin D. 7. Clonidine. ALLERGIES: LORACARBEF. SOCIAL HISTORY: No smoking, alcohol, or illicit drugs. FAMILY HISTORY: No history of kidney disease. REVIEW OF SYSTEMS: CONSTITUTIONAL: Negative for weight loss or gain, ability to conduct usual activities. SKIN: Negative for rash, itching. EYES: Negative for double vision, pain. ENT/MOUTH: Negative for nose bleeding, neck stiffness, pain, tenderness. CARDIOVASCULAR: Negative for palpitations, dyspnea on exertion, orthopnea. RESPIRATORY: Negative for shortness of breath, wheezing, cough, hemoptysis, fever or night sweats. GASTROINTESTINAL: Negative for poor appetite, abdominal pain, heartburn, nausea, vomiting, constipation, or diarrhea. GENITOURINARY: Negative for urgency, frequency, dysuria, nocturia. MUSCULOSKELETAL: Negative for pain, swelling. NEUROLOGIC/PSYCHIATRIC: Negative for anxiety, depression. ALLERGY/IMMUNOLOGIC: Negative for skin rash, bleeding tendency. PHYSICAL EXAMINATION: GENERAL: This is an obese male, in no apparent distress. VITAL SIGNS: . HEENT: Atraumatic, normocephalic. Oral mucosa is moist. NECK: Supple. CARDIOVASCULAR: S1, S2 heard. Rate and rhythm regular. RESPIRATORY: Clear. GASTROINTESTINAL: Abdomen is soft. MUSCULOSKELETAL: No tenderness. No edema. DERMATOLOGIC: No skin rash. NEUROLOGIC: Alert and awake. PSYCHIATRIC: Mood and affect normal. LABORATORY DATA: Hemoglobin is 10.5. Potassium 4.0, BUN is 35, creatinine is 13.2. ASSESSMENT AND PLAN: 1. End-stage renal disease. Continue on hemodialysis as tolerated. 2. Edema, controlled. 3. Hypertension. 4. Anemia. Plan to continue on dialysis as tolerated. Job ID: [id number]
[2019-07-05 05:35] LABS: Albumin 3.7 g/dL (3.5-5.0); Anion Gap 17 mmol/L (10-20); BUN (Urea Nitrogen) 40 mg/dL (8.9-20.6); BUN/Creatinine Ratio 2.75; Calc. Creatinine Clearance 10 mL/min (70-130); Calcium 9.8 mg/dL (7.8-10.44); Carbon Dioxide 28 mmol/L (22-29); Chloride 95 mmol/L (98-107); Estimated GFR-MDRD 5; Glucose 81 mg/dL (70-105); Phosphorus 8.2 mg/dL (2.3-4.7); Potassium 4.5 mmol/L (3.5-5.1); Sodium 135 mmol/L (136-145)
[2019-07-05] MEDS ORDERED: NIFEdipine XL 90 MG TAB PO SCH (09:00)
[2019-07-05] MEDS: hydrALAZINE 25 MG TAB PO SCH ×2 (11:02→20:26)
[2019-07-05] MEDS: Sevelamer Carbonate 800 MG TAB PO SCH ×3 (11:03→16:35)
[2019-07-05] MEDS: cloNIDine 0.2 MG TAB PO SCH ×2 (11:03→20:27)
[2019-07-05] MEDS: Labetalol 100 MG TAB PO SCH ×2 (11:03→20:27)
[2019-07-05] MEDS: Enoxaparin Sodium 30 MG/0.3 ML SYRINGE SC SCH (11:08)
[2019-07-05] MEDS ORDERED: diphenhydrAMINE 50 MG/ML VIAL IVP SCH (13:15)
--- NOTE | 2019-07-05 13:22 | NM ---
CARDIAC SPECT: HISTORY: A 24-year-old black female with chest pain. CHF, end-stage renal disease, and hypertension. TECHNIQUE: A myocardial perfusion scan is performed using the single-isotope 1-day protocol with Technetium 99m sestamibi. Ten mCi were injected intravenously for the rest exam followed by 30 mCi for the stress s tudy. Pharmacologic stress with adenosine is monitored and interpreted by Dr. Buckner. FINDINGS: Fairly homogeneous tracer distribution is seen in the myocardial segments on stress and rest images w ithout fixed or reversible defects. GATED SPECT LVEF: 56%. WALL MOTION EXAM: Normal. IMPRESSION: Normal myocardial perfusion scan. POS: TPC
[2019-07-05] MEDS: HYDROcodone/Acetaminophen 5/325 mg Tablet PO PRN (13:25)
[2019-07-05] MEDS ORDERED: ADENOSINE 60 MG/20 ML VIAL ONE (14:05)
--- NOTE | 2019-07-05 14:10 | PRG ---
DATE OF SERVICE: 07/05/2019 SUBJECTIVE: A 24-year-old gentleman, being seen for end-stage renal disease. The patient denied nausea, vomiting, or chest pain. OBJECTIVE: GENERAL: The patient is awake and alert. VITAL SIGNS: Pulse 74, breathing 16, and blood pressure 155/100. GENERAL APPEARANCE AND MENTAL STATUS: Fair. HEAD/NECK: Normocephalic. Atraumatic. EYES: EOMI. No deformity. EARS: Clear. No ulcers. NOSE: Intact. No lesions. MOUTH: Clear. No discharge. THROAT: Clear. No exudate. LUNGS: Clear. No crackles. CARDIAC: S1, S2. No rub. ABDOMEN: Benign. Bowel sounds positive. GENITALIA/RECTUM: Pimentel absent. BACK/EXTREMITIES: Edema 0+. NEUROLOGICAL: Alert and motor intact. SKIN: LYMPHATICS: LABORATORY DATA: Reviewed. ASSESSMENT: 1. Stage 3 chronic kidney disease, continue on hemodialysis. 2. Hypertension, stable. 3. Anemia, stable. 4. Medication based on GFR appropriate. Job ID: [id number]
--- NOTE | 2019-07-05 17:25 | PDOC.HOSPP ---
- Subjective Encounter Date: 07/05/19 Encounter Time: 15:23 Subjective: Admitted due to chest pain that started afater hemodilaysis on 07/02/2019. chest is better. Getting HD.no new problem - Objective Vital Signs & Weight: Vital Signs (12 hours) Temp Pulse Resp BP Pulse Ox 07/05/19 11:40 98.0 F 74 14 177/101 H 97 07/05/19 07:08 97.7 F 76 16 174/105 H 98 Weight Admit Weight 189 lb Weight 189 lb Result Diagrams: 07/04/19 10:42 07/05/19 04:41 ROS - Medication Medications: Active Medications Generic Name Dose Route Start Last Admin Trade Name Freq PRN Reason Stop Dose Admin Hydrocodone Bitart/Acetaminophen 1 tab 07/04/19 15:22 07/05/19 13:25 [place] 5/325 PO 1 tab Q4H PRN Administration Moderate Pain (4-6) Clonidine 0.2 mg 07/04/19 21:00 07/05/19 11:03 Catapres PO 0.2 mg BID ALANNA Administration Enoxaparin Sodium 30 mg 07/05/19 09:00 07/05/19 11:08 Lovenox SC Not Given 0900 ALANNA Hydralazine HCl 100 mg 07/05/19 09:00 07/05/19 11:02 Apresoline PO 100 mg BID ALANNA Administration Hydroxyzine HCl 25 mg 07/04/19 20:15 07/04/19 20:32 Atarax PO 25 mg Q8H PRN Administration Itching Labetalol HCl 400 mg 07/04/19 21:00 07/05/19 11:03 Normodyne PO 400 mg BID ALANNA Administration Nifedipine 90 mg 07/05/19 09:00 07/05/19 11:03 Procardia Xl PO 90 mg DAILY ALANNA Administration Sevelamer Carbonate 2,400 mg 07/04/19 17:00 07/05/19 16:35 Renvela PO Not Given TID-WM ALANNA - Exam awake alert Eye: anicteric sclera ENT: normocephalic atraumatic Heart: RRR Respiratory: no wheezes, no rales, no ronchi Gastrointestinal: soft, non-tender, non-distended, normal bowel sounds Extremities: no edema Extremeties - other findings: Right arm large aneurysmal AVF noted Neurological: CN's grossly intact, no focal deficits Psychiatric: normal affect, A&O x 3 Hosp A/P (1) Atypical chest pain Code(s): R07.89 - OTHER CHEST PAIN Status: Acute (2) ESRD (end stage renal disease) on dialysis Code(s): N18.6 - END STAGE RENAL DISEASE; Z99.2 - DEPENDENCE ON RENAL DIALYSIS Status: Chronic - Plan Awaiting Echo maryann rule out pericardial effusion Continue antihypertensives. HD as per nephrology.
[2019-07-06] MEDS ORDERED: NIFEdipine XL 90 MG TAB PO SCH (07:40)
[2019-07-06] MEDS: HYDROcodone/Acetaminophen 5/325 mg Tablet PO PRN (07:54)
[2019-07-06] MEDS: Labetalol 100 MG TAB PO SCH (08:57)
[2019-07-06] MEDS: cloNIDine 0.2 MG TAB PO SCH (08:58)
[2019-07-06] MEDS: hydrALAZINE 25 MG TAB PO SCH (08:58)
[2019-07-06] MEDS ORDERED: NIFEdipine XL 60 MG TAB PO SCH (09:00)
[2019-07-06] MEDS: Sevelamer Carbonate 800 MG TAB PO SCH ×2 (09:03→11:44)
[2019-07-06] MEDS: Enoxaparin Sodium 30 MG/0.3 ML SYRINGE SC SCH (09:03)
[2019-07-06] MEDS ORDERED: hydrALAZINE 25 MG TAB PO SCH (11:00)
[2019-07-06 11:56] VITALS: TEMP 98.7
[2019-07-06] MEDS ORDERED: cloNIDine 0.1 MG TAB PO SCH (13:30)
[2019-07-06 14:43] VITALS: BP 128/70
--- NOTE | 2019-07-06 16:13 | PRG ---
DATE OF SERVICE: 07/06/2019 SUBJECTIVE: This is a 24-year-old gentleman being seen for end-stage renal disease. The patient denied nausea, vomiting, or chest pain. OBJECTIVE: See above. The patient is awake, alert, in no acute distress. VITAL SIGNS: Afebrile, pulse 71, breathing 16, blood pressure 122/73. GENERAL APPEARANCE AND MENTAL STATUS: Fair. HEAD/NECK: Normocephalic. Atraumatic. EYES: EOMI. No deformity. EARS: Clear. No ulcers. NOSE: Intact. No lesions. MOUTH: Clear. No discharge. THROAT: Clear. No exudate. LUNGS: Clear. No crackles. CARDIAC: S1, S2. No rub. ABDOMEN: Benign. Bowel sounds positive. GENITALIA/RECTUM: Pimentel absent. BACK/EXTREMITIES: Edema 0+. NEUROLOGICAL: Alert and motor intact. SKIN: LYMPHATICS: LABORATORY DATA: Labs reviewed. ASSESSMENT AND PLAN: 1. Stage chronic kidney disease. Continue hemodialysis. 2. Hypertension, better. 3. Anemia, stable. 4. Medication based on GFR appropriate. Job ID: [id number]
--- NOTE | 2019-07-06 17:32 | DIS ---
DATE OF ADMISSION: 07/04/2019 DATE OF DISCHARGE: 07/06/2019 PRIMARY CARE PHYSICIAN: Dr. Enoch Zeng. DISCHARGE DIAGNOSES: 1. Atypical chest pain. 2. Uncontrolled hypertension. 3. End-stage renal disease, on hemodialysis. 4. [place] disease. 5. Chronic diastolic heart failure. 6. Moderate mitral regurgitation. 7. Pulmonary hypertension. 8. Ventricular hypertrophy. CONSULT: Nephrology. PROCEDURE PERFORMED: Hemodialysis. HOSPITAL COURSE: A 24-year-old male patient with known history of end-stage renal disease from [place], status post failed renal transplant, currently on hemodialysis, admitted with persistent chest pain that started after hemodialysis. In the emergency room, the patient was evaluated with serial troponin with initial one being marginally elevated. Given persistence of symptoms, there was some concern about pericardial effusion, hence the patient was admitted. Acute myocardial infarction was ruled out with trending down serial troponin. He was further risk stratified with nuclear stress test, which was negative for reversible ischemia. The patient also was further evaluated with echocardiogram, which showed no pericardial effusion. He was treated with analgesic with improvement of chest pain. He was seen by Nephrology and had hemodialysis. Hospital course was, however, complicated by elevation in BP necessitating adjustment of blood pressure upwards to get adequate BP control. He improved and was subsequently discharged home. PHYSICAL EXAMINATION: VITAL SIGNS: Temperature 98.7, pulse 95, respiratory rate 18, SpO2 of 96% on room air, and blood pressure 128/70. GENERAL: Young male, in no obvious distress. Afebrile. Anicteric. Acyanotic. HEENT: Normocephalic and atraumatic. Pupils are reacting to light. CARDIOVASCULAR: Regular rhythm and rate with normal heart sounds 1 and 2. Soft systolic murmur noted. RESPIRATORY: Fair air entry bilaterally with no obvious crackle or rhonchi or use of accessory muscles. GI: Full, soft, nontender, and nondistended with normal bowel sounds. EXTREMITIES: Right upper arm AV fistula with large aneurysmal dilatation noted. There is no edema of the lower extremities. NEUROLOGIC: Conscious, alert, and oriented x3 with appropriate mental status. DISCHARGE DISPOSITION: Home. DISCHARGE CONDITION: Improved. DISCHARGE MEDICATIONS: 1. Ondansetron 4 mg q.6 p.r.n. for nausea and vomiting. 2. Esomeprazole 40 mg p.o. daily. 3. Hydralazine 200 mg in the morning and 100 mg in the evening. 4. Sevelamer 2400 mg p.o. t.i.d. 5. Vitamin B complex one tablet p.o. daily. 6. Clonidine 0.3 mg p.o. b.i.d. 7. Labetalol 600 mg p.o. b.i.d. 8. Nifedipine 120 mg p.o. daily. Job ID: [id number]
--- NOTE | 2019-07-06 22:53 | EKG ---
Test Reason : STAT Blood Pressure : / mmHG Vent. Rate : 090 BPM Atrial Rate : 090 BPM P-R Int : 160 ms QRS Dur : 098 ms QT Int : 378 ms P-R-T Axes : 058 044 050 degrees QTc Int : 462 ms Normal sinus rhythm Septal infarct , age undetermined Abnormal ECG When compared with ECG of 04-JUL-2019 10:27, (Unconfirmed) Nonspecific T wave abnormality now evident in Lateral leads Confirmed by Marcos LOUIS ([id number]) on 07/06/2019 10:53:21 PM Referred By: OBI Confirmed By:Marcos LOUIS
--- NOTE | 2019-07-10 14:58 | EKG ---
Test Reason : Blood Pressure : / mmHG Vent. Rate : 094 BPM Atrial Rate : 094 BPM P-R Int : 156 ms QRS Dur : 108 ms QT Int : 374 ms P-R-T Axes : 033 031 033 degrees QTc Int : 467 ms Normal sinus rhythm Moderate voltage criteria for LVH, may be normal variant Borderline ECG Confirmed by DALIA FERREIRA, BARBARA ([id number]), editor producer DERREK GARCIA ([id number]) on 07/10/2019 2:58:38 PM Referred By: Confirmed By:BARBARA GÓMEZ MD
== END 2019-07-06 16:34 | disposition home or self-care (01) ==
LOC: ERS 10:12 → 2SW 15:03
PROVIDERS: ADMIT Internal Medicine Nephrology; ATTEND Internal Medicine Nephrology
DX: R07.89 Other chest pain (principal); I13.2 Hypertensive heart and chronic kidney disease with heart failure and with stage 5 chronic kidney disease, or end stage renal disease; N18.6 End stage renal disease; I50.32 Chronic diastolic (congestive) heart failure; D63.1 Anemia in chronic kidney disease; M31.0 Hypersensitivity angiitis; I34.0 Nonrheumatic mitral (valve) insufficiency; I27.20 Pulmonary hypertension, unspecified; T86.12 Kidney transplant failure; R79.89 Other specified abnormal findings of blood chemistry; Z99.2 Dependence on renal dialysis; Z88.8 Allergy status to other drugs, medicaments and biological substances; Z79.899 Other long term (current) drug therapy
CPT/HCPCS: 36415; 71045; 78452; 80053; 80069; 82550; 82553; 84484; 85025; 85652; 86140; 87040; 93005; 93010; 93017; 93306; 94760; 96361; 96374; 96375; 96376; A9500; G0378; J0153; J1200; J1885; J2270; J2405

== ENCOUNTER 2020-02-01 08:50 | Day surgery (SDC) | payer OTHER ==
[2020-01-31 17:32] VITALS: BMI 24.7
[2020-02-01] MEDS ORDERED: hydrALAZINE 20 MG/ML VIAL ONE (09:30)
[2020-02-01] MEDS ORDERED: PROPOFOL 40 ML ONE (09:34)
[2020-02-01] MEDS ORDERED: Midazolam HCl 2 mg/2 ml Vial ONE (09:34)
[2020-02-01] MEDS ORDERED: Lidocaine 1% (PF) 30 ML VIAL ONE (09:41)
[2020-02-01 09:55] LABS: INR-International Normal Ratio 1.3
[2020-02-01 09:56] LABS: PTT 53.9 SEC (22.9-36.1)
[2020-02-01 10:07] LABS: Anion Gap 18 mmol/L (10-20); BUN (Urea Nitrogen) 26 mg/dL (8.9-20.6); Calc. Creatinine Clearance 17 mL/min (70-130); Calcium 9.8 mg/dL (7.8-10.44); Carbon Dioxide 25 mmol/L (22-29); Chloride 98 mmol/L (98-107); Estimated GFR-MDRD 10; Glucose 71 mg/dL (70-105); Potassium 4.7 mmol/L (3.5-5.1); Sodium 136 mmol/L (136-145)
[2020-02-01] MEDS ORDERED: Lidocaine 1% PF 5 ML VIAL ONE (10:17)
[2020-02-01] MEDS ORDERED: Ondansetron PF 4 MG/2 ML Vial ONE (10:22)
--- NOTE | 2020-02-01 12:44 | OP ---
DATE OF PROCEDURE: 02/01/2020 PRIMARY CARE PHYSICIAN: Dr. Hilliard. PROCEDURE PERFORMED: Transesophageal echocardiogram. INDICATION: This is a 24-year-old gentleman with a bioprosthetic valve. DESCRIPTION OF PROCEDURE: The patient was taken to the PACU. The patient was sedated by Anesthesiology. A transesophageal probe was placed into the distal esophagus and stomach. Echocardiographic images were obtained. The transesophageal probe was removed. FINDINGS: 1. Normal left ventricular systolic function. 2. Left ventricular hypertrophy. 3. Normal functioning bioprosthetic mitral valve. 4. Normal aortic valve. 5. Mild aortic regurgitation. 6. Mild tricuspid regurgitation. 7. Atherosclerotic debris in the descending aorta. IMPRESSION: Normal functioning bioprosthetic valve. Job ID: [id number]
== END 2020-02-01 11:54 | disposition home or self-care (01) ==
LOC: CCL 08:50
PROVIDERS: ATTEND Internal Medicine Cardiovascular Disease
PROC: B24BZZ4 Ultrasonography of Heart with Aorta, Transesophageal (ICD-10-PCS; principal; 2020-02-01)
DX: I08.2 Rheumatic disorders of both aortic and tricuspid valves (principal); I12.0 Hypertensive chronic kidney disease with stage 5 chronic kidney disease or end stage renal disease; N18.6 End stage renal disease; E66.8 Other obesity; Z95.2 Presence of prosthetic heart valve; Z68.24 Body mass index [BMI] 24.0-24.9, adult; Z79.899 Other long term (current) drug therapy; Z88.1 Allergy status to other antibiotic agents
CPT/HCPCS: 80048; 85610; 85730; 93312; J0360; J2001; J2250; J2405; J2704

== ENCOUNTER 2020-05-12 16:35 | Emergency (ER) | payer OTHER ==
[2020-05-12 17:59] LABS: #Eosinphils 0.6 thou/uL (0.0-0.7); #Monocytes 0.4 thou/uL (0.11-0.59); #Neutrophils 1.7 thou/uL (1.40-6.50); %Basophils 0.7 % (0.0-1.0); %Eosinophils 16.3 % (0.0-10.0); %Monocytes 10.3 % (0.0-10.0); %Neutrophils 46.7 % (42.0-75.0); Hemoglobin 7.3 g/dL (14.0-18.0); Mean Corpuscular HGB CONC 33.3 g/dL (32.0-36.0); Mean Corpuscular Hemoglobin 32.2 pg (27.0-31.0); Mean Corpuscular Volume 96.7 fL (78.0-98.0); Mean Platelet Volume 11.4 fL (7.4-10.4); Platelet Count 57 thou/uL (130-400); RBC Distribution Width 14.1 % (11.5-14.5); Red Blood Cell (RBC) Count 2.27 mill/uL (4.70-6.10); White Blood Cell (WBC) Count 3.7 thou/uL (4.8-10.8)
[2020-05-12 18:21] LABS: ALT (SGPT) 12 U/L (8-55); AST (SGOT) 26 U/L (5-34); Albumin 3.7 g/dL (3.5-5.0); Alkaline Phosphatase 134 U/L (40-110); Anion Gap 19 mmol/L (10-20); BUN (Urea Nitrogen) 53 mg/dL (8.9-20.6); Bilirubin, Total 0.5 mg/dL (0.2-1.2); Calc. Creatinine Clearance 0 mL/min (70-130); Calcium 8.7 mg/dL (7.8-10.44); Carbon Dioxide 23 mmol/L (22-29); Chloride 101 mmol/L (98-107); Estimated GFR-MDRD 6; Globulin 3.4 g/dL (2.4-3.5); Glucose 95 mg/dL (70-105); Phosphorus 6.3 mg/dL (2.3-4.7); Potassium 4.6 mmol/L (3.5-5.1); Protein, Total 7.1 g/dL (6.0-8.3); Sodium 138 mmol/L (136-145)
[2020-05-12 23:13] LABS: HBSAg Index 0.17 S/CO (0-0.99); Hep B Surf Ag Non-Reactive S/CO (NonReactive)
[2020-05-13] MEDS ORDERED: diphenhydrAMINE 25 MG CAP ONE (01:19)
== END 2020-05-13 01:32 | disposition home or self-care (01) ==
LOC: ERS 16:35
DX: I13.11 Hypertensive heart and chronic kidney disease without heart failure, with stage 5 chronic kidney disease, or end stage renal disease (principal); I43 Cardiomyopathy in diseases classified elsewhere; N18.6 End stage renal disease; Z79.899 Other long term (current) drug therapy
CPT/HCPCS: 36415; 80053; 83735; 84100; 85025; 87340; 90935; 99283; G0257; Q0163

== ENCOUNTER 2020-09-01 11:18 | Inpatient (IN) | payer OTHER ==
[~2020-09-01 11:18] MED LIST changes: +Heparin 1,000 UNITS/ML VIAL ONE; -Heparin 10,000 UNITS/ 10 ML VIAL ONE
[2020-09-01] MEDS ORDERED: Ibuprofen 800 MG TAB ONE (11:57)
[2020-09-01] MEDS ORDERED: Cefepime 2 GM VIAL ONE (11:57)
[2020-09-01] MEDS ORDERED: Vancomycin 1 GM/200 ML BAG ONE (11:57)
[2020-09-01 12:10] LABS: #Basophils 0.1 thou/uL (0.0-0.2); #Eosinphils 0.3 thou/uL (0.0-0.7); #Monocytes 0.6 thou/uL (0.11-0.59); #Neutrophils 4.2 thou/uL (1.40-6.50); %Basophils 0.8 % (0.0-1.0); %Eosinophils 4.5 % (0.0-10.0); %Lymphocytes 15.8 % (21.0-51.0); %Monocytes 9.2 % (0.0-10.0); %Neutrophils 69.6 % (42.0-75.0); Hemoglobin 7.5 g/dL (14.0-18.0); Mean Corpuscular Hemoglobin 31.1 pg (27.0-31.0); Mean Corpuscular Volume 94.4 fL (78.0-98.0); Mean Platelet Volume 9.9 fL (7.4-10.4); Platelet Count 82 thou/uL (130-400); RBC Distribution Width 16.7 % (11.5-14.5); Red Blood Cell (RBC) Count 2.42 mill/uL (4.70-6.10)
--- NOTE | 2020-09-01 12:19 | RAD ---
Exam: Chest one view HISTORY:Dyspnea. Comparison: 08/15/2020 FINDINGS: Cardiac silhouette: Cardiomegaly. Prosthetic aortic valve. There are sternotomy wires. Aorta: Unremarkable Pulmonary vessels: Normal Costophrenic angles: Clear LUNGS: There are interstitial and alveolar opacities. Pneumothorax: None Osseous abnormalities: None IMPRESSION: 1. Congestive heart failure. Superimposed pneumonia cannot be excluded.
[2020-09-01 12:26] LABS: ALT (SGPT) 13 U/L (8-55); AST (SGOT) 21 U/L (5-34); Albumin 3.2 g/dL (3.5-5.0); Alkaline Phosphatase 157 U/L (40-110); Anion Gap 16 mmol/L (10-20); BUN (Urea Nitrogen) 43 mg/dL (8.9-20.6); Bilirubin, Total 1.3 mg/dL (0.2-1.2); CK (CPK) 84 U/L (30-200); Calc. Creatinine Clearance 0 mL/min (70-130); Calcium 8.1 mg/dL (7.8-10.44); Carbon Dioxide 26 mmol/L (22-29); Chloride 97 mmol/L (98-107); Estimated GFR-MDRD 9; Globulin 3.6 g/dL (2.4-3.5); Glucose 64 mg/dL (70-105); Lipase 9 U/L (8-78); Potassium 4.7 mmol/L (3.5-5.1); Protein, Total 6.8 g/dL (6.0-8.3); Sodium 134 mmol/L (136-145)
[2020-09-01] MEDS ORDERED: Morphine 4 MG/ML VIAL ONE ×2 (12:29→13:25)
--- NOTE | 2020-09-01 13:58 | CT ---
CTA CHEST WITH 3D RENDERING CTA ABDOMEN WITH 3D RENDERING: HISTORY: Pain. Recent COVID. COMPARISON: None TECHNIQUE: CT angiogram of the thoracic and abdominal aorta performed in the axial plane. Three-dimensional refo rmatted images are submitted for interpretation. FINDINGS: Suboptimal evaluation. Contrast administered via the left upper extremity predominantly opacifies the venous system. Inadequate contrast opacification of the aorta, mediastinum and solid organs. Chest CT: Mediastinum: Limited evaluation due to lack of adequate contrast opacification. Possible lymphadenopa thy in the mediastinum and right hilum cannot be excluded. Heart: Normal heart size. There does appear to be moderate mediastinal fluid. Coronary arteries: No significant atherosclerotic disease. Prosthetic mitral valve. Trachea and central bronchi: Patent. Pleural spaces: Small right-sided pleural effusion. Right lung: Diffuse groundglass opacities which may represent edema. The possibility of a superimpose d atypical pneumonia cannot be excluded. Left lung: Diffuse groundglass opacities which may represent edema. The possibility of superimposed a typical pneumonia cannot be excluded. Pneumothorax: None. Abdomen CT: Gallbladder: Contracted with hyperdensity involving the lumen. Incomplete evaluation. Portal vein: Cannot be evaluated. Solid organs:Suboptimal evaluation due to lack of adequate contrast opacification. There appears to b e hepatomegaly. Grossly no acute abnormality with regards to the solid organs. Kidneys: Platinum kidneys are atrophic. There is a calcified right renal transplant in the right hemipe lvis. Mesentery: Significant ascites. No mass, lymphadenopathy or free air. Alimentary canal: Limited evaluation by the lack of oral contrast. No evidence of a bowel obstruction . Normal ileocecal junction. Osseous structures: No lytic or blastic lesions. There is diffuse bone demineralization. CT ANGIOGRAM: Doppler evaluation the aorta. No evidence of aneurysm. Visualized vasculature of the abdomen is unrem arkable. IMPRESSION: 1. Markedly limited evaluation due to poor timing of contrast bolus. Grossly no evidence of aneurysm. No obvious dissection. 2. Diffuse groundglass opacities which may represent pulmonary edema. Superimposed atypical infection such as COVID pneumonia cannot be excluded. 3. Atrophic [place] kidneys. Calcified transplant in the right hemipelvis. 4. Diffuse ascites. 5. Calcification and hyperdensity involving the gallbladder. Consider ultrasound for further evaluati on. Transcribed Date/Time: 09/01/2020 2:06 PM
[2020-09-01] MEDS ORDERED: Aspirin Chewable 81 MG TAB ONE (14:36)
[2020-09-01] MEDS ORDERED: Dexamethasone 10 MG/ML VIAL ONE (14:36)
[2020-09-01] MEDS ORDERED: Enoxaparin Sodium 80 MG/0.8 ML SYRINGE ONE (14:36)
[2020-09-01] MEDS ORDERED: Enoxaparin Sodium 100 MG/ML SYRINGE ONE (14:36)
[2020-09-01] MEDS ORDERED: Morphine 2 MG/ML VIAL ONE ×2 (15:50)
[2020-09-01] MEDS ORDERED: Acetaminophen 325 MG TAB PO PRN (16:35)
[2020-09-01 17:04] VITALS: BMI 23.5
[2020-09-01] MEDS ORDERED: FLU VACC QS2020-21(6MOS UP)/PF 60 MCG/0.5 ML SYRINGE IM ONE (17:45)
[2020-09-01] MEDS ORDERED: Prevnar 13-Val Conj/PF 0.5 ML SYRINGE IM ONE (17:45)
[2020-09-01] MEDS ORDERED: Ascorbic Acid 500 mg Chewable Tablet PO SCH (18:30)
[2020-09-01] MEDS ORDERED: Zinc Sulfate 220 MG CAP PO SCH (18:30)
--- NOTE | 2020-09-01 18:30 | HP ---
PRIMARY CARE PROVIDER: Dr. Nidhi Hilliard. CHIEF COMPLAINT: Cough. HISTORY OF PRESENT ILLNESS: Mr. Martínez is a pleasant 25-year-old gentleman, who was seen at [facility] on September 01, 2020. He has a history of end-stage renal disease and undergoes hemodialysis on Friday, Friday, and Friday. Two days ago, he started having cough as well as left-sided chest and abdominal pain. He reports generalized weakness. He describes the pain as both sharp and dull, 10/10 in severity. The patient denies any fevers. The pain is worse with deep breathing. He missed dialysis today. He presented to the emergency room because of above symptoms. REVIEW OF SYSTEMS: All systems were reviewed and found to be negative except for the pertinent positives mentioned above. PAST MEDICAL HISTORY: 1. Anemia. 2. End-stage renal disease, on hemodialysis. 3. [place] disease with rejection of renal transplant and currently on dialysis on Friday, Friday, and Friday. 4. Eczema. PAST SURGICAL HISTORY: 1. Right kidney transplant. 2. Left and right arm fistula. SOCIAL HISTORY: The patient uses marijuana. He denies tobacco use or alcohol use. FAMILY HISTORY: No history of premature coronary artery disease. ALLERGIES: LORACARBEF. CURRENT MEDICATIONS: These need to be clarified, but appeared to include; 1. Nexium. 2. Labetalol. 3. Hydralazine. 4. Nifedipine. 5. Renvela. 6. Clonidine. 7. Minoxidil. 8. Folic acid. 9. Amlodipine. 10. Hydroxyzine. PHYSICAL EXAMINATION: GENERAL: Mr. Martínez is awake and alert, in mild distress. VITAL SIGNS: Blood pressure is 136/87, pulse 81, respiratory rate 18, and oxygen saturation 96% on 2 L of oxygen. He is currently afebrile, but T-max in the emergency room was 103 degrees Fahrenheit. EYES: No scleral icterus. No conjunctival pallor. ENT: Moist mucosal membranes. No oropharyngeal erythema or exudates. NECK: Supple, nontender. Trachea is midline. RESPIRATORY: Accessory muscles of breathing are mildly active. Chest wall movements are symmetric bilaterally. LUNGS: Bibasilar crackles. CARDIOVASCULAR: S1 and S2 are heard, regular. Peripheral pulses palpable. ABDOMEN: Soft, nontender. Bowel sounds are heard. NEUROLOGIC: Cranial nerves 2 through 12 are intact. MUSCULOSKELETAL: Power is 5/5 in all 4 extremities. SKIN: No rashes. LYMPHATIC: No cervical lymphadenopathy. PSYCHIATRIC: The patient in mild distress, oriented to person and place, not to time. LABORATORY AND DIAGNOSTIC DATA: Mr. Martínez's labs and investigations were reviewed. I reviewed his electrocardiogram, which shows normal sinus rhythm, no ST changes to suggest an acute coronary syndrome. I reviewed his chest x-ray, which shows pulmonary edema. He also had CT angiogram of the chest, but it was markedly limited evaluation due to poor timing of contrast bolus. There was no evidence of aneurysm or obvious dissection. He had diffuse ground-glass opacities which may represent pulmonary edema, superimposed atypical infections such as COVID pneumonia cannot be excluded. He had atrophic [place] kidneys and calcified transplant in the right hemipelvis. He also had diffuse ascites, calcification and hyperdensity involving the gallbladder. He has normal white count, normocytic anemia with hemoglobin 7.5, decreased platelet count of 82,000, decreased lymphocytes, elevated D-dimer of 7.96, decreased sodium of 134, normal potassium, elevated blood urea nitrogen of 43, elevated creatinine of 8.56, elevated total bilirubin of 1.3, normal AST, normal ALT, elevated alkaline phosphatase of 157, and elevated BNP of 7990. ASSESSMENT AND PLAN: Mr. Martínez is a pleasant 25-year-old gentleman, who was seen at [facility] on September 01, 2020. His problem list includes: 1. Chest pain: Mr. Martínez is presenting with pleuritic chest pain and shortness of breath. Clinically, he appears to be in volume overload. I have contacted his sole skiver, who will arrange for dialysis. The patient's CT angiogram was not interpretable for pulmonary embolism. I will check V/Q scan. He has already received 1 mg/kg of Lovenox. Given his dialysis status, I will order prophylactic heparin starting tomorrow afternoon. If necessary, CT angiogram of the chest may need to be repeated to evaluate the pulmonary arteries. 2. End-stage renal disease, on hemodialysis: He has missed dialysis today. Nephrology Service has been consulted for maintenance dialysis. 3. Hyponatremia: Mild, likely asymptomatic. 4. Thrombocytopenia: Chronic, recheck platelet count. 5. Anemia: Monitor H and H. 6. Pneumonia: Suspected to be bacterial versus COVID-19 pneumonia. The patient has been started on vancomycin and cefepime, which I will continue. He has also received dexamethasone, which I will continue. I will also start the patient on vitamin C and zinc. Many thanks for allowing me to participate in your patient's care. Please feel free to contact me with any questions or concerns. LEVEL OF RISK: High. LEVEL OF COMPLEXITY: High. ESTIMATED LENGTH OF STAY IN THE HOSPITAL: Greater than 2 midnights. Job ID: [id number] MTDD
[2020-09-01] MEDS: Morphine 2 MG/ML VIAL SLOW IVP PRN (18:51)
[2020-09-01] MEDS ORDERED: Sevelamer Carbonate 800 MG TAB PO SCH (19:00)
[2020-09-01] MEDS ORDERED: diphenhydrAMINE 25 MG CAP PO SCH (20:15)
[2020-09-01] MEDS ORDERED: Cefepime 2 GM in Sodium Chloride 0.9% 100 ML IVPB SCH (23:59)
[2020-09-02] MEDS ORDERED: diphenhydrAMINE 25 MG CAP PO SCH (01:15)
[2020-09-02] MEDS: Morphine 2 MG/ML VIAL SLOW IVP PRN ×5 (01:42→20:30)
[2020-09-02] MEDS: Mag-Al 1200 mg/1200 mg/30 ML UDCUP PO PRN ×2 (06:00→15:12)
[2020-09-02] MEDS: Ondansetron PF 4 MG/2 ML Vial IVP PRN (06:11)
[2020-09-02 07:29] LABS: #Eosinphils 0.1 thou/uL (0.0-0.7); #Lymphocytes 0.9 thou/uL (1.20-3.40); #Monocytes 0.4 thou/uL (0.11-0.59); #Neutrophils 4.6 thou/uL (1.40-6.50); %Basophils 0.4 % (0.0-1.0); %Eosinophils 1.4 % (0.0-10.0); %Lymphocytes 15.4 % (21.0-51.0); %Monocytes 7.2 % (0.0-10.0); %Neutrophils 75.6 % (42.0-75.0); Hemoglobin 7.7 g/dL (14.0-18.0); Mean Corpuscular HGB CONC 32.7 g/dL (32.0-36.0); Mean Corpuscular Hemoglobin 31.2 pg (27.0-31.0); Mean Corpuscular Volume 95.2 fL (78.0-98.0); Platelet Count 74 thou/uL (130-400); RBC Distribution Width 16.5 % (11.5-14.5); Red Blood Cell (RBC) Count 2.45 mill/uL (4.70-6.10)
[2020-09-02] MEDS: NIFEdipine XL 60 MG TAB PO SCH (07:39)
[2020-09-02] MEDS: Sevelamer Carbonate 800 MG TAB PO SCH ×3 (07:39→16:36)
[2020-09-02] MEDS: Ascorbic Acid 500 mg Chewable Tablet PO SCH (07:43)
[2020-09-02 07:44] LABS: Anion Gap 15 mmol/L (10-20); BUN (Urea Nitrogen) 34 mg/dL (8.9-20.6); Calc. Creatinine Clearance 20 mL/min (70-130); Calcium 8.9 mg/dL (7.8-10.44); Carbon Dioxide 31 mmol/L (22-29); Chloride 94 mmol/L (98-107); Estimated GFR-MDRD 12; Glucose 84 mg/dL (70-105); Potassium 4.7 mmol/L (3.5-5.1); Sodium 135 mmol/L (136-145)
[2020-09-02] MEDS ORDERED: Dexamethasone 4 MG TAB PO SCH (08:00)
[2020-09-02] MEDS ORDERED: Zinc Sulfate 220 MG CAP PO SCH (09:00)
[2020-09-02] MEDS ORDERED: diphenhydrAMINE 50 MG/ML VIAL IVP SCH (10:30)
[2020-09-02] MEDS: EPOETIN ALFA-EPBX (ESRD) 10,000 UNIT/ML VIAL SC SCH (10:35)
--- NOTE | 2020-09-02 11:14 | PRG ---
DATE OF SERVICE: 09/02/2020 SUBJECTIVE: A 25-year-old gentleman being seen for end-stage renal disease. The patient denied any nausea, vomiting, or chest pain. OBJECTIVE: GENERAL: The patient is awake, alert. VITAL SIGNS: Afebrile. Pulse 75, breathing 16, blood pressure 160/95. HEENT: Head normocephalic and atraumatic. Eyes intact, no ulcers. Nose intact, no ulcers. Ears intact, no ulcers. NECK: Supple. No JVD. CHEST: Symmetrical and clear. CARDIOVASCULAR: Shows S1 and S2, no rub, no murmur. GASTROINTESTINAL: Abdomen is soft, bowel sounds positive. EXTREMITIES: Show no edema or ulcers. SKIN: Shows no rash or petechiae. MUSCULOSKELETAL: Shows no joint swelling or stiffness. GENITOURINARY: Shows no Pimentel or CVA tenderness. NEUROLOGIC: Motor intact. Cranial nerves intact. LABORATORY DATA: Labs reviewed. ASSESSMENT AND PLAN: 1. Stage 6 chronic kidney disease. Plan dialysis on Friday, Friday, Friday. 2. Hypertension, stable. 3. Anemia, improved. Continue Epogen. 4. Medication based on GFR appropriate. Job ID: [id number]
--- NOTE | 2020-09-02 11:58 | CON ---
DATE OF CONSULTATION: 09/01/2020 REASON FOR CONSULTATION: End-stage renal disease and severe anemia. HISTORY OF PRESENT ILLNESS: This is a very pleasant 25-year-old gentleman who presented to the hospital after missing dialysis and had had cough and has been admitted for COVID rule out. PAST MEDICAL HISTORY: Significant for hypertension, anemia, end-stage kidney disease, [place] disease, right kidney transplant failed, AV fistula, tunneled dialysis catheter, multiple surgery, history of substance abuse, and chronic eczema of the skin. SOCIOECONOMIC HISTORY: See above. FAMILY HISTORY: Negative for ESRD. ALLERGIES: REVIEWED. HOME MEDICATIONS: List reviewed. HOSPITAL MEDICATIONS: List reviewed. REVIEW OF SYSTEMS: A 15-point review of systems was performed and negative except for positives noted above. HEENT: Eyes intact, no diplopia. Ears: No hearing loss or earache. Nose: No discharge or bleeding. CHEST: No cough or phlegm. ABDOMEN: No nausea or vomiting. GENITOURINARY: No hematuria. No Pimentel catheter. MUSCULOSKELETAL: No low back pain. No joint swelling or pain. NEUROLOGICAL: No syncope. No seizures. SKIN: No complaints of rash or itching. PSYCHIATRIC: No depression. CONSTITUTIONAL: No weight loss or loss of appetite. PHYSICAL EXAMINATION: GENERAL: The patient was awake, alert. VITAL SIGNS: Afebrile, pulse 77, breathing 16, and blood pressure 132/82. HEENT: Head normocephalic and atraumatic. Eyes intact, no ulcers. Nose intact, no ulcers. Ears intact, no ulcers. NECK: Supple. No JVD. CHEST: Symmetrical and clear. CARDIOVASCULAR: Shows S1 and S2, no rub, no murmur. GASTROINTESTINAL: Abdomen is soft, bowel sounds positive. EXTREMITIES: Show no edema or ulcers. SKIN: Shows no rash or petechiae. MUSCULOSKELETAL: Shows no joint swelling or stiffness. GENITOURINARY: Shows no Pimentel or CVA tenderness. NEUROLOGIC: Motor intact. Cranial nerves intact. LABORATORY DATA: Show hemoglobin 7.5. ASSESSMENT AND PLAN: 1. Stage 6 chronic kidney disease, plan dialysis. 2. Pulmonary edema, plan dialysis. 3. Hypertension, stable. 4. Anemia. We will give Epogen 20,000 units every 7 days. Job ID: [id number]
[2020-09-02] MEDS ORDERED: Cefepime 2 GM in Sodium Chloride 0.9% 100 ML IVPB SCH (12:00)
--- NOTE | 2020-09-02 12:04 | PDOC.HOSPP ---
- Subjective Encounter Date: 09/02/20 Encounter Time: 09:45 Subjective: c/o itching all over and has applied band aid over broken skin areas over chest and abdomen sob is better, had HD yesterday wants iv benadryl x1 to sleep and get relief from itching - Objective Vital Signs & Weight: Vital Signs (12 hours) Temp Pulse Resp BP Pulse Ox 09/02/20 08:00 98.2 F 80 18 164/95 H 91 L 09/02/20 07:39 88 09/02/20 05:30 98.2 F 88 19 169/99 H 95 Weight Weight 182 lb 15.739 oz I&O: 09/01/20 09/02/20 09/03/20 06:59 06:59 06:59 Intake Total 890 240 Balance 890 240 Result Diagrams: 09/02/20 07:18 09/02/20 07:18 Hospitalist ROS - Medication Medications: Active Medications Generic Name Dose Route Start Last Admin Trade Name Freq PRN Reason Stop Dose Admin Al Hydroxide/Mg Hydroxide 30 ml 09/02/20 05:54 09/02/20 06:00 Mag-Al 1200 Mg/1200 Mg/30 Ml Udcup PO 30 ml Q6H PRN Administration Heartburn or Indigestion Ascorbic Acid 1,000 mg 09/02/20 09:00 09/02/20 07:43 Ascorbic Acid 500 Mg Chewable Tablet PO 1,000 mg DAILY ALANNA Administration Dexamethasone 6 mg 09/02/20 08:00 09/02/20 07:40 Dexamethasone 4 Mg Tab PO 6 mg QAM-WM ALANNA Administration Diphenhydramine HCl 25 mg 09/02/20 10:30 09/02/20 10:34 Diphenhydramine 50 Mg/Ml Vial IVP 09/02/20 13:00 25 mg NOW ALANNA Administration Epoetin John-epbx 20,000 unit 09/02/20 09:00 09/02/20 10:35 Epoetin John-Epbx (Esrd) 10,000 Unit/Ml Vial SC 20,000 unit Q7D ALANNA Administration Morphine Sulfate 2 mg 09/01/20 17:51 09/02/20 10:34 Morphine 2 Mg/Ml Vial SLOW IVP 2 mg Q4H PRN Administration Moderate to Severe Pain (4-10) Nifedipine 60 mg 09/02/20 09:00 09/02/20 07:39 Nifedipine Xl 60 Mg Tab PO 60 mg DAILY ALANNA Administration Ondansetron HCl 4 mg 09/01/20 16:35 09/02/20 06:11 Ondansetron Pf 4 Mg/2 Ml Vial IVP 4 mg Q6H PRN Administration Nausea/Vomiting Sevelamer Carbonate 2,400 mg 09/02/20 08:00 09/02/20 11:37 Sevelamer Carbonate 800 Mg Tab PO 2,400 mg TID-WM ALANNA Administration Zinc Sulfate 220 mg 09/02/20 09:00 09/02/20 07:39 Zinc Sulfate 220 Mg Cap PO 220 mg DAILY ALANNA Administration - Exam General Appearance: awake alert Eye: PERRL, anicteric sclera ENT: no oropharyngeal lesions, moist mucosa Neck: supple, no JVD Heart: RRR, murmur present Respiratory: no wheezes, no rales Gastrointestinal: soft, non-tender, non-distended, normal bowel sounds Extremities: no edema Extremities - other findings: right UE dialysis access has severe distentions of fistula Neurological: cranial nerve grossly intact, no focal deficits Psychiatric: normal affect, A&O x 3 Hosp A/P (1) Sepsis Code(s): A41.9 - SEPSIS, UNSPECIFIED ORGANISM Status: Acute Qualifiers: Sepsis type: methicillin resistant Staphylococcus aureus Severe sepsis shock status: without septic shock (2) MRSA bacteremia Code(s): R78.81 - BACTEREMIA; B95.62 - METHICILLIN RESIS STAPH INFCT CAUSING DISEASES CLASSD ELSWHR Status: Acute (3) Volume overload Code(s): E87.70 - FLUID OVERLOAD, UNSPECIFIED Status: Acute (4) Anemia of renal disease Code(s): D63.1 - ANEMIA IN CHRONIC KIDNEY DISEASE Status: Chronic (5) Cardiomyopathy Code(s): I42.9 - CARDIOMYOPATHY, UNSPECIFIED Status: Chronic Qualifiers: Cardiomyopathy type: dilated Qualified Code(s): I42.0 - Dilated cardiomyopathy (6) ESRD (end stage renal disease) on dialysis Code(s): N18.6 - END STAGE RENAL DISEASE; Z99.2 - DEPENDENCE ON RENAL DIALYSIS Status: Chronic (7) GERD (gastroesophageal reflux disease) Code(s): K21.9 - GASTRO-ESOPHAGEAL REFLUX DISEASE WITHOUT ESOPHAGITIS Status: Chronic Qualifiers: Esophagitis presence: without esophagitis Qualified Code(s): K21.9 - Gastro-esophageal reflux disease without esophagitis (8) H/O kidney transplant Status: Chronic (9) H/O mitral valve replacement Code(s): Z95.2 - PRESENCE OF PROSTHETIC HEART VALVE Status: Chronic (10) Hypertension Code(s): I10 - ESSENTIAL (PRIMARY) HYPERTENSION Status: Chronic Qualifiers: Hypertension type: essential hypertension Qualified Code(s): I10 - Essential (primary) hypertension - Plan 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
[2020-09-02] MEDS ORDERED: Vancomycin 1.5 GRAM/300 ML BAG 1.5 GM in Premix Bag 1 BAG IVPB SCH (13:00)
[2020-09-02] MEDS: Vancomycin 1.5 GRAM/300 ML BAG 1.5 GM in Premix Bag 1 BAG IVPB SCH (13:59)
[2020-09-02] MEDS: Heparin 5,000 UNITS/ML VIAL SC SCH ×2 (14:00→20:48)
[2020-09-02 15:23] LABS: SARS-CoV-2 MS2 Positive; SARS-CoV-2 N Gene Negative; SARS-CoV-2 S Gene Negative; SARS-CoV-2 by NAA Not Detected (NotDetected); SARS-CoV-2 orf1ab Negative
[2020-09-02] MEDS ORDERED: Gentamicin 80 MG/2 ML VIAL IM SCH (16:00)
--- NOTE | 2020-09-02 17:42 | CON ---
DATE OF CONSULTATION: 09/02/2020 REASON FOR CONSULT: End-stage renal disease, Goodpasture syndrome, MRSA mitral valve endocarditis with persistence, pulmonary infiltrates and concern with COVID. HISTORY OF PRESENT ILLNESS: A 25-year-old whom I have seen multiple times in the past, mostly at [facility], who has a history of end-stage renal disease secondary to Goodpasture syndrome, prior failed renal transplant and hemodialysis through an AV fistula in the right upper extremity, who has been diagnosed with MRSA bacteremia due to mitral valve endocarditis. The patient was transferred to [facility]. He had replacement of the mitral valve. In the past, I had mistakenly stated that he had aortic valve replacement, actually the mitral valve was one that was replaced. Anyway, he was seen in [facility], had the procedure done and went home in , resumed dialysis, and then developed fever with MRSA bacteremia recurrence. He had some low back pain and fluffy infiltrates on a chest x-ray. He had a lumbar spine MRI which did not show any inflammatory changes and he left the hospital against medical advice, then finished the treatment, and I contacted the dialysis service and gave orders to resume vancomycin sliding scale and then he was readmitted in May with fever, chest pain, fatigue, body aches, and a MICHAEL this time was done which showed thickened mitral valve prosthesis with possible vegetation, a small one. CT of chest did not show any remarkable findings. His May 08 blood cultures were positive for MRSA, his cultures in May and then subsequent admissions in June were negative. He was readmitted, I believe, in June and also in July with abdominal pain and chest pain. He had a GI bleed which required numerous packed red blood cell unit transfusions, required treatment of gastric ulcer and now he presents with cough, fever, abdominal distention, chest pain, some dyspnea. No headaches. No visual symptoms. No back pain. No neck pain. No urinary output. No diarrhea. He has pain in the ankles and plantar aspect of feet when he stands up and tries to walk. This is a new symptom. No neurological symptoms. MEDICAL HISTORY: Goodpasture syndrome with end-stage renal disease, on hemodialysis through an AV fistula, mitral valve endocarditis due to MRSA diagnosed in 2018, transferred to [facility], required valve replacement and then he had recurrence of MRSA bacteremia in April this year. He was treated. It is not clear if he received the entire duration of therapy planned. He signed out against medical advice at this time in April. Repeat blood cultures in May and June were negative. He was admitted for other reasons. ALLERGIES: LORACARBEF. CURRENT MEDICATIONS: 1. Vancomycin. 2. Procardia. 3. Morphine. 4. Vitamin C. 5. Maalox. FAMILY HISTORY: Noncontributory. SOCIAL HISTORY: Never smoker, lives with family. No drug use. PHYSICAL EXAMINATION: VITAL SIGNS: T-max 98.7, BP 160/90, heart rate 80, respiratory rate 18, and O2 saturation 91% to 95% on room air. SKIN: Has multiple excoriations, covered by Band-Aid in the chest, abdomen, and proximal aspect of the appendicular structures. He has his functional AV fistula in the right upper extremity. GENERAL: Appears chronically ill, but in no acute distress. HEENT: Somewhat pale conjunctivae. No lymphadenopathy. Some element of temporal wasting. No jugular vein distention. LUNGS: Patient with bibasilar inspiratory crackles, faint, no wheezing. HEART: S1, S2 without obvious murmurs, regular rate. ABDOMEN: Tender, particularly in the right side/right upper quadrant. The tenderness is on light palpation and percussion mostly on the right side, question of ascites. No bladder distention or organomegaly. EXTREMITIES: No joint inflammatory activity noted. No edema. Pulses 1+ in dorsalis pedis. He is able to move all extremities, diffusely weak. NEUROLOGIC: He is oriented, follows commands. LABORATORY DATA: Sodium 135, creatinine 6.71. Ferritin 1700. CRP 3. BNP 7900. White cell count 6.0, hemoglobin 7.7, MCV 95, platelets 74 with 75% neutrophils. D-dimer 7.96. We have 2 sets of blood cultures collected yesterday, both positive for MRSA. We do not have a final susceptibility report for this pathogen yet. IMAGING: Had a CT dissection protocol and it showed poor timing of contrast bolus with technical difficulties. Diffuse ground-glass opacities, atrophic makah kidneys, calcified transplant right hemipelvis, diffuse ascites. He had a cervical CT-spine from August 18, nothing remarkable. He had an abdomen and pelvis CT in July, which showed free fluid, atrophic kidneys, ground-glass interstitial opacities. Bowel appeared normal. ASSESSMENT AND DISCUSSION: Goodpasture syndrome, end-stage renal disease, failed renal transplant, mitral valve endocarditis, status post mitral valve replacement in [facility] at the end of last year, recurrence of MRSA bacteremia in April this year with questionable completion of treatment. During this admission, he signed against medical advice from [facility]. Now persistence of MRSA bacteremia likely due to mitral valve endocarditis. Involvement of all other valves is not ruled out at this point. Patient will probably need a repeat MICHAEL to evaluate the mitral valve and aortic valve. Continue vancomycin sliding scale. We will probably need to add rifampin oral and then gentamicin for the first 2 weeks. Depending on the findings on the MICHAEL, may have to refer him back to [facility]. He stated to me that somebody told him his COVID test was positive, but I do not find any results here in the chart. P.S.: SARS CoV2 test results negative according to his nurse. Job ID: [id number] [facility]
[2020-09-02] MEDS: diphenhydrAMINE 50 MG/ML VIAL IVP PRN (19:40)
[2020-09-02] MEDS: Rifampin 300 MG CAP PO SCH (20:24)
[2020-09-03] MEDS: diphenhydrAMINE 50 MG/ML VIAL IVP PRN ×4 (01:53→19:53)
[2020-09-03] MEDS: Morphine 2 MG/ML VIAL SLOW IVP PRN ×4 (01:53→19:52)
[2020-09-03] MEDS: Heparin 5,000 UNITS/ML VIAL SC SCH ×3 (07:32→21:20)
[2020-09-03] MEDS: NIFEdipine XL 60 MG TAB PO SCH (07:32)
[2020-09-03] MEDS: Sevelamer Carbonate 800 MG TAB PO SCH ×3 (07:32→16:39)
[2020-09-03] MEDS: Ascorbic Acid 500 mg Chewable Tablet PO SCH (07:33)
--- NOTE | 2020-09-03 07:34 | ULT ---
Sonogram right upper quadrant HISTORY: Right upper quadrant pain. Abnormal gallbladder on CT. FINDINGS: Gallbladder wall is not distended. Wall again that 1.0 cm. Internal echogenicity without sh adowing. Common duct is 0.3 cm. Liver enlarged and diffusely echogenic. Small amount of free fluid within the right upper quadrant. IMPRESSION : Biliary sludge within the gallbladder with decompression and thickened wall. No evidence of acute randee iary obstruction. No acute pathology apparent. Hepato-steatosis. Ascites.
[2020-09-03] MEDS: Rifampin 300 MG CAP PO SCH ×2 (09:59→21:20)
--- NOTE | 2020-09-03 12:02 | PDOC.HOSPP ---
- Subjective Encounter Date: 09/03/20 Encounter Time: 10:25 Subjective: no fever or sob is eating well itching is better and wants benadryl iv q4h (have counselled reg esrd and decreased removal of it and leading to complications from stacking inside) - Objective Vital Signs & Weight: Vital Signs (12 hours) Temp Pulse Resp BP Pulse Ox 09/03/20 08:00 95 09/03/20 07:32 81 09/03/20 07:26 98.3 F 81 18 167/99 H 95 09/03/20 04:04 98.7 F 83 20 159/91 H 93 L 09/03/20 01:00 98.7 F 85 19 160/75 H 94 L Weight Weight 182 lb 15.739 oz I&O: 09/02/20 09/03/20 09/04/20 06:59 06:59 06:59 Intake Total 890 1560 360 Balance 890 1560 360 Result Diagrams: 09/02/20 07:18 09/02/20 07:18 Hospitalist ROS - Medication Medications: Active Medications Generic Name Dose Route Start Last Admin Trade Name Freq PRN Reason Stop Dose Admin Al Hydroxide/Mg Hydroxide 30 ml 09/02/20 05:54 09/02/20 15:12 Mag-Al 1200 Mg/1200 Mg/30 Ml Udcup PO 30 ml Q6H PRN Administration Heartburn or Indigestion Ascorbic Acid 1,000 mg 09/02/20 09:00 09/03/20 07:33 Ascorbic Acid 500 Mg Chewable Tablet PO 1,000 mg DAILY ALANNA Administration Diphenhydramine HCl 25 mg 09/02/20 17:53 09/03/20 07:33 Diphenhydramine 50 Mg/Ml Vial IVP 25 mg Q6H PRN Administration Itching & Insomnia Epoetin John-epbx 20,000 unit 09/02/20 09:00 09/02/20 10:35 Epoetin John-Epbx (Esrd) 10,000 Unit/Ml Vial SC 20,000 unit Q7D ALANNA Administration Heparin Sodium (Porcine) 5,000 units 09/02/20 15:00 09/03/20 07:32 Heparin 5,000 Units/Ml Vial SC 5,000 units TID ALANNA Administration Vancomycin HCl 1.5 gm/ Device 300 mls @ 200 mls/hr 09/02/20 13:00 09/02/20 13:59 IVPB 300 mls 1300 ALANNA Administration Morphine Sulfate 2 mg 09/01/20 17:51 09/03/20 07:33 Morphine 2 Mg/Ml Vial SLOW IVP 2 mg Q4H PRN Administration Moderate to Severe Pain (4-10) Nifedipine 60 mg 09/02/20 09:00 09/03/20 07:32 Nifedipine Xl 60 Mg Tab PO 60 mg DAILY ALANNA Administration Ondansetron HCl 4 mg 09/01/20 16:35 09/02/20 06:11 Ondansetron Pf 4 Mg/2 Ml Vial IVP 4 mg Q6H PRN Administration Nausea/Vomiting Pantoprazole Sodium 40 mg 09/03/20 09:00 09/03/20 07:33 Pantoprazole 40 Mg Tab PO 40 mg DAILY ALANNA Administration Rifampin 300 mg 09/02/20 22:00 09/03/20 09:59 Rifampin 300 Mg Cap PO 300 mg 1000,2200 ALANNA Administration Sevelamer Carbonate 2,400 mg 09/02/20 08:00 09/03/20 11:30 Sevelamer Carbonate 800 Mg Tab PO 2,400 mg TID-WM ALANNA Administration - Exam General Appearance: awake alert Eye: PERRL, anicteric sclera ENT: no oropharyngeal lesions, moist mucosa Neck: supple, no JVD Heart: RRR, murmur present Respiratory: no wheezes, no rales Gastrointestinal: soft, non-tender, non-distended, normal bowel sounds Extremities: no cyanosis, no edema Extremities - other findings: large bulging avf in both arms worse over right side Neurological: cranial nerve grossly intact, no focal deficits Psychiatric: A&O x 3 Hosp A/P (1) Sepsis Code(s): A41.9 - SEPSIS, UNSPECIFIED ORGANISM Status: Acute Qualifiers: Sepsis type: methicillin resistant Staphylococcus aureus Severe sepsis shock status: without septic shock (2) MRSA bacteremia Code(s): R78.81 - BACTEREMIA; B95.62 - METHICILLIN RESIS STAPH INFCT CAUSING DISEASES CLASSD ELSWHR Status: Acute (3) Volume overload Code(s): E87.70 - FLUID OVERLOAD, UNSPECIFIED Status: Resolved (4) Anemia of renal disease Code(s): D63.1 - ANEMIA IN CHRONIC KIDNEY DISEASE Status: Chronic (5) Cardiomyopathy Code(s): I42.9 - CARDIOMYOPATHY, UNSPECIFIED Status: Chronic Qualifiers: Cardiomyopathy type: dilated Qualified Code(s): I42.0 - Dilated cardiomyopathy (6) ESRD (end stage renal disease) on dialysis Code(s): N18.6 - END STAGE RENAL DISEASE; Z99.2 - DEPENDENCE ON RENAL DIALYSIS Status: Chronic (7) GERD (gastroesophageal reflux disease) Code(s): K21.9 - GASTRO-ESOPHAGEAL REFLUX DISEASE WITHOUT ESOPHAGITIS Status: Chronic Qualifiers: Esophagitis presence: without esophagitis Qualified Code(s): K21.9 - Gastro-esophageal reflux disease without esophagitis (8) H/O kidney transplant Status: Chronic (9) H/O mitral valve replacement Code(s): Z95.2 - PRESENCE OF PROSTHETIC HEART VALVE Status: Chronic (10) Hypertension Code(s): I10 - ESSENTIAL (PRIMARY) HYPERTENSION Status: Chronic Qualifiers: Hypertension type: essential hypertension Qualified Code(s): I10 - Essential (primary) hypertension - Plan h/o mitral valve endocarditis in 2019 with bioprosthetic valve replacement, had mrsa bacteremia..recurrent, ?non compliance currently is growing mrsa again in blood echo to r/o vegetation, may need MICHAEL if -ve is on vanc sliding scale with HD had back to back HD till yesterday has skin lesions due to chronic itching due to likely esrd (>10 yrs on HD now) may need transfer to [facility] if his valve is compromised on echo/MICHAEL recurrent hospitalization due to noncompliance with HD continue sevelamer hemostable poor prognosis usg ruq shows no signs of infection in GB. ambulate as tolerated
[2020-09-03] MEDS: Vancomycin 1.5 GRAM/300 ML BAG 1.5 GM in Premix Bag 1 BAG IVPB SCH (12:19)
--- NOTE | 2020-09-03 12:50 | PRG ---
DATE OF SERVICE: 09/03/2020 SUBJECTIVE: A 25-year-old gentleman being seen for end-stage renal disease. The patient denied any nausea, vomiting, or chest pain. OBJECTIVE: GENERAL: The patient is awake and alert. VITAL SIGNS: Afebrile, pulse 94, breathing at 16, blood pressure 159/91. HEENT: Head normocephalic and atraumatic. Eyes intact, no ulcers. Nose intact, no ulcers. Ears intact, no ulcers. NECK: Supple. No JVD. CHEST: Symmetrical and clear. CARDIOVASCULAR: Shows S1 and S2, no rub, no murmur. GASTROINTESTINAL: Abdomen is soft, bowel sounds positive. EXTREMITIES: Show no edema or ulcers. SKIN: Shows no rash or petechiae. MUSCULOSKELETAL: Shows no joint swelling or stiffness. GENITOURINARY: Shows no Pimentel or CVA tenderness. NEUROLOGIC: Motor intact. Cranial nerves intact. LABORATORY DATA: Labs show hemoglobin 7.7. ASSESSMENT AND PLAN: 1. Stage 6 chronic kidney disease. Plan, dialysis schedule. 2. Hypertension, stable. 3. Anemia. Continue Epogen. Consider transfusion if hemoglobin is less than 7.5. 4. Medication based on GFR appropriate. Noncompliance was discussed. Job ID: [id number]
[2020-09-03 13:02] LABS: Vancomycin, Trough 33.1 ug/mL
--- NOTE | 2020-09-03 21:02 | RAD ---
XR Abdomen 1 View/KUB History: Abdominal distention Comparison: CT examination 3 days prior Findings: Incidental note is made of prosthetic mitral valve. Stomach appears distended. Calcified ri ght pelvic kidney. No dilated air-filled loops of large or small bowel. Moderate ascites. Impression: Moderate ascites and calcified right lower quadrant transplant kidney.
[2020-09-03] MEDS ORDERED: Senokot 8.6 MG TAB PO PRN (21:49)
[2020-09-04] MEDS: Morphine 2 MG/ML VIAL SLOW IVP PRN ×3 (02:27→10:43)
[2020-09-04] MEDS: diphenhydrAMINE 50 MG/ML VIAL IVP PRN ×2 (02:31→10:43)
[2020-09-04] MEDS ORDERED: cloNIDine 0.1 MG TAB PO SCH (03:15)
[2020-09-04] MEDS: Ondansetron PF 4 MG/2 ML Vial IVP PRN (03:36)
--- NOTE | 2020-09-04 04:28 | PDOC.EVN ---
Event Note - Event Note Event Note: Notified by RN, patient with abdominal discomfort and distention. KUB obtained and showed ascites but no evidence of obstruction. Had an episode of vomiting and apparently felt better afterward. Vitals stable. Will obtain repeat labs (recently thrombocytopenic). Day team to decide on holding further anticoagulation if remains low/decreases further. Currently on heparin. Also, to decide on paracentesis for symptomatic relief. Patient seen and examined by Dr. Mckeon.
[2020-09-04 05:02] LABS: #Eosinphils 0.4 thou/uL (0.0-0.7); #Lymphocytes 1.1 thou/uL (1.20-3.40); #Monocytes 0.3 thou/uL (0.11-0.59); #Neutrophils 4.6 thou/uL (1.40-6.50); %Basophils 0.6 % (0.0-1.0); %Eosinophils 5.6 % (0.0-10.0); %Lymphocytes 17.1 % (21.0-51.0); %Monocytes 5.3 % (0.0-10.0); %Neutrophils 71.3 % (42.0-75.0); Hemoglobin 7.6 g/dL (14.0-18.0); Lactic Acid 0.8 mmol/L (0.5-2.2); Mean Corpuscular HGB CONC 33.4 g/dL (32.0-36.0); Mean Corpuscular Hemoglobin 31.5 pg (27.0-31.0); Mean Corpuscular Volume 94.4 fL (78.0-98.0); Mean Platelet Volume 10.4 fL (7.4-10.4); Platelet Count 83 thou/uL (130-400); RBC Distribution Width 16.6 % (11.5-14.5); White Blood Cell (WBC) Count 6.4 thou/uL (4.8-10.8)
[2020-09-04 05:08] LABS: ALT (SGPT) 9 U/L (8-55); AST (SGOT) 14 U/L (5-34); Albumin 3.2 g/dL (3.5-5.0); Alkaline Phosphatase 147 U/L (40-110); Anion Gap 21 mmol/L (10-20); BUN (Urea Nitrogen) 57 mg/dL (8.9-20.6); Calc. Creatinine Clearance 15 mL/min (70-130); Calcium 8.3 mg/dL (7.8-10.44); Carbon Dioxide 23 mmol/L (22-29); Chloride 95 mmol/L (98-107); Estimated GFR-MDRD 9; Globulin 3.8 g/dL (2.4-3.5); Glucose 82 mg/dL (70-105); Lipase 13 U/L (8-78); Magnesium 2.2 mg/dL (1.6-2.6); Potassium 4.8 mmol/L (3.5-5.1); Sodium 134 mmol/L (136-145)
[2020-09-04] MEDS ORDERED: Preparation H HC 1% Cream 26 GM TUBE TOP PRN (09:18)
[2020-09-04] MEDS ORDERED: hydrALAZINE 25 MG TAB PO SCH ×2 (09:30→21:00)
--- NOTE | 2020-09-04 12:03 | PRG ---
DATE OF SERVICE: 09/04/2020 SUBJECTIVE: Patient was seen and examined at bedside and overnight events noted. Patient denies any shortness of breath or chest pain or palpitation. No history of nausea or vomiting or diarrhea or fever or chills or cramps. OBJECTIVE: General: This is a well-built male, in no apparent distress. Vital Signs: Temperature . Heart Rate . Respiratory rate 18. Blood pressure 186/110. HEENT: Atraumatic, normocephalic. Oral mucosa is moist. Neck: Supple. Cardiovascular: S1, S2 heard. Rate and rhythm regular. Respiratory: Clear to auscultation. Gastrointestinal: Abdomen is soft. Musculoskeletal: No tenderness. No edema. Dermatologic: No skin rash. Neurologic: Alert and awake and oriented x3. No focal neurologic deficits. Moving all the extremities. Psychiatric: Mood and affect normal. LABORATORY DATA: Potassium 4.8, BUN is 57, creatinine is 9.2. ASSESSMENT AND PLAN: 1. End-stage renal disease. Plan to have dialysis today. 2. Edema, remove fluid. 3. Hypertension. 4. Anemia of chronic disease. We will have dialysis as tolerated. Job ID: [id number]
[2020-09-04] MEDS: Sevelamer Carbonate 800 MG TAB PO SCH ×3 (12:10→17:36)
[2020-09-04] MEDS: NIFEdipine XL 60 MG TAB PO SCH (12:10)
[2020-09-04] MEDS: Ascorbic Acid 500 mg Chewable Tablet PO SCH (12:11)
[2020-09-04] MEDS: Rifampin 300 MG CAP PO SCH ×2 (12:12→20:14)
[2020-09-04] MEDS: Heparin 5,000 UNITS/ML VIAL SC SCH ×3 (12:12→20:13)
[2020-09-04] MEDS ORDERED: Vancomycin 1.5 GRAM/300 ML BAG 1.5 GM in Premix Bag 1 BAG IVPB SCH (13:00)
[2020-09-04] MEDS: cloNIDine 0.3 MG TAB PO SCH ×2 (15:39→20:13)
--- NOTE | 2020-09-04 17:02 | PDOC.HOSPP ---
- Subjective Encounter Date: 09/04/20 Subjective: Patient continues to report some lower abdominal pain which is fairly chronic for him. - Objective Vital Signs & Weight: Vital Signs (12 hours) Temp Pulse Resp BP BP Pulse Ox 09/04/20 15:39 183/107 H 09/04/20 12:17 92 09/04/20 12:10 92 09/04/20 08:00 94 L 09/04/20 07:36 98.4 F 92 18 186/110 H 93 L Weight Weight 182 lb 15.739 oz I&O: 09/03/20 09/04/20 09/05/20 06:59 06:59 06:59 Intake Total 1560 960 Balance 1560 960 Result Diagrams: 09/04/20 04:41 09/04/20 04:41 Hospitalist ROS - Medication Medications: Active Medications Generic Name Dose Route Start Last Admin Trade Name Freq PRN Reason Stop Dose Admin Al Hydroxide/Mg Hydroxide 30 ml 09/02/20 05:54 09/02/20 15:12 Mag-Al 1200 Mg/1200 Mg/30 Ml Udcup PO 30 ml Q6H PRN Administration Heartburn or Indigestion Ascorbic Acid 1,000 mg 09/02/20 09:00 09/04/20 12:11 Ascorbic Acid 500 Mg Chewable Tablet PO 1,000 mg DAILY ALANNA Administration Clonidine 0.3 mg 09/04/20 15:00 09/04/20 15:39 Clonidine 0.3 Mg Tab PO 0.3 mg TID ALANNA Administration Diphenhydramine HCl 25 mg 09/02/20 17:53 09/04/20 10:43 Diphenhydramine 50 Mg/Ml Vial IVP 25 mg Q6H PRN Administration Itching & Insomnia Epoetin John-epbx 20,000 unit 09/02/20 09:00 09/02/20 10:35 Epoetin John-Epbx (Esrd) 10,000 Unit/Ml Vial SC 20,000 unit Q7D ALANNA Administration Heparin Sodium (Porcine) 5,000 units 09/02/20 15:00 09/04/20 15:38 Heparin 5,000 Units/Ml Vial SC 5,000 units TID ALANNA Administration Morphine Sulfate 2 mg 09/01/20 17:51 09/04/20 10:43 Morphine 2 Mg/Ml Vial SLOW IVP 2 mg Q4H PRN Administration Moderate to Severe Pain (4-10) Nifedipine 60 mg 09/02/20 09:00 09/04/20 12:10 Nifedipine Xl 60 Mg Tab PO 60 mg DAILY ALANNA Administration Ondansetron HCl 4 mg 09/01/20 16:35 09/04/20 03:36 Ondansetron Pf 4 Mg/2 Ml Vial IVP 4 mg Q6H PRN Administration Nausea/Vomiting Pantoprazole Sodium 40 mg 09/03/20 09:00 09/04/20 12:10 Pantoprazole 40 Mg Tab PO 40 mg DAILY ALANNA Administration Rifampin 300 mg 09/02/20 22:00 09/04/20 12:12 Rifampin 300 Mg Cap PO 300 mg 1000,2200 ALANNA Administration Senna 2 tab 09/03/20 21:49 09/04/20 00:59 Senokot 8.6 Mg Tab PO 2 tab HSPRN PRN Administration Constipation Sevelamer Carbonate 2,400 mg 09/02/20 08:00 09/04/20 12:12 Sevelamer Carbonate 800 Mg Tab PO Not Given TID-WM ALANNA - Exam General Appearance: NAD, awake alert Heart: RRR, no murmur, no gallops, no rubs, normal peripheral pulses Respiratory: CTAB, no wheezes, no rales, no ronchi, normal chest expansion, no tachypnea, normal percussion Gastrointestinal: soft, non-tender, non-distended, normal bowel sounds, no palpable masses, no hepatomegaly, no splenomegaly, no bruit Extremities: no cyanosis, no clubbing, no edema Skin - other findings: Dry, excoriated Musculoskeletal: diffuse muscle atrophy Psychiatric: normal affect, normal behavior, A&O x 3 Hosp A/P (1) MRSA bacteremia Code(s): R78.81 - BACTEREMIA; B95.62 - METHICILLIN RESIS STAPH INFCT CAUSING DISEASES CLASSD ELSWHR Status: Acute (2) Abdominal pain Code(s): R10.9 - UNSPECIFIED ABDOMINAL PAIN Status: Chronic Qualifiers: Abdominal location: generalized Qualified Code(s): R10.84 - Generalized abdominal pain (3) Anemia of renal disease Code(s): D63.1 - ANEMIA IN CHRONIC KIDNEY DISEASE Status: Chronic (4) Chronic pain Code(s): G89.29 - OTHER CHRONIC PAIN Status: Chronic (5) ESRD (end stage renal disease) on dialysis Code(s): N18.6 - END STAGE RENAL DISEASE; Z99.2 - DEPENDENCE ON RENAL DIALYSIS Status: Chronic (6) H/O kidney transplant Status: Chronic (7) H/O mitral valve replacement Code(s): Z95.2 - PRESENCE OF PROSTHETIC HEART VALVE Status: Chronic (8) Hypertension Code(s): I10 - ESSENTIAL (PRIMARY) HYPERTENSION Status: Chronic Qualifiers: Hypertension type: essential hypertension Qualified Code(s): I10 - Essential (primary) hypertension (9) Secondary hyperparathyroidism of renal origin Code(s): N25.81 - SECONDARY HYPERPARATHYROIDISM OF RENAL ORIGIN Status: Chronic (10) History of endocarditis Code(s): Z86.79 - PERSONAL HISTORY OF OTHER DISEASES OF THE CIRCULATORY SYSTEM Status: Acute - Plan MRSA bacteremia, history of endocarditis: Patient continues on vancomycin coverage. Will obtain a MICHAEL. End-stage renal disease on dialysis: Continue dialysis per nephrology. Chronic abdominal pain: Patient has reported this over long period of time through multiple admissions with significant work-up and no significant findings. Anemia: Hemoglobin is in line with his historical baseline. Hypertension: Patient's blood pressure is significantly elevated. He is on several antihypertensive medications at reasonable doses. Again, at this moment he does not have additional IV access. Will discuss with nephrology for further options. Note: Patient has lost IV access. Having a difficult time establishing a peripheral l ine. IV antibiotics can be given with dialysis. Patient would like to continue to try to get some form of prophylaxis because he prefers his other medications IV.
[2020-09-04] MEDS ORDERED: diphenhydrAMINE 25 MG CAP PO PRN (17:18)
[2020-09-04] MEDS ORDERED: Ondansetron ODT 4 MG TAB PO PRN (17:27)
[2020-09-04] MEDS: Acetaminophen/Codeine 30-300mg Tablet PO PRN (17:36)
[2020-09-04] MEDS: Gabapentin 100 MG CAP PO SCH (20:13)
[2020-09-04] MEDS: hydrALAZINE 25 MG TAB PO SCH (20:13)
[2020-09-04] MEDS: Amitriptyline HCl 100 MG TAB PO SCH (20:13)
[2020-09-05] MEDS: diphenhydrAMINE 50 MG/ML VIAL IVP PRN ×4 (01:50→21:08)
[2020-09-05] MEDS: Morphine 2 MG/ML VIAL SLOW IVP PRN ×4 (01:50→21:08)
[2020-09-05] MEDS: cloNIDine 0.3 MG TAB PO SCH ×3 (07:58→21:03)
[2020-09-05] MEDS: Sevelamer Carbonate 800 MG TAB PO SCH ×3 (07:58→18:03)
[2020-09-05] MEDS: DULoxetine 60 MG CAP PO SCH (07:59)
[2020-09-05] MEDS: Ascorbic Acid 500 mg Chewable Tablet PO SCH (07:59)
[2020-09-05] MEDS: NIFEdipine XL 90 MG TAB PO SCH (07:59)
[2020-09-05] MEDS: Heparin 5,000 UNITS/ML VIAL SC SCH ×3 (08:00→21:09)
[2020-09-05] MEDS: hydrALAZINE 25 MG TAB PO SCH ×3 (08:00→21:04)
[2020-09-05] MEDS ORDERED: hydrALAZINE 25 MG TAB PO SCH (09:00)
[2020-09-05 09:36] LABS: Vancomycin, Random 37.4 ug/mL (See Comment)
[2020-09-05] MEDS: Rifampin 300 MG CAP PO SCH ×2 (10:35→21:07)
[2020-09-05] MEDS ORDERED: Vancomycin HCl 1.25 GM in Sodium Chloride 0.9% 250 ML 250 ML IVPB SCH (10:45)
[2020-09-05] MEDS ORDERED: Vancomycin 1 GM in Premix Bag 1 BAG IVPB SCH (10:45)
[2020-09-05] MEDS ORDERED: HOLD VANCOMYCIN FOR LEVEL >20 FS SCH (10:45)
[2020-09-05] MEDS ORDERED: Vancomycin HCl 750 MG in Sodium Chloride 0.9% 250 ML 250 ML IVPB SCH (10:45)
[2020-09-05] MEDS ORDERED: Vancomycin Sliding Scale 1 EACH FS ONE (10:45)
[2020-09-05] MEDS ORDERED: Vancomycin HCl 500 MG in Sodium Chloride 0.9% 100 ML IVPB SCH (10:45)
--- NOTE | 2020-09-05 11:45 | PRG ---
DATE OF SERVICE: 09/05/2020 SUBJECTIVE: Patient was seen and examined at bedside and overnight events noted. Patient denies any shortness of breath or chest pain or palpitation. No history of nausea or vomiting or diarrhea or fever or chills or cramps. OBJECTIVE: GENERAL: This is a well-built male, in no apparent distress. VITAL SIGNS: Temperature 98.9. Heart Rate 96. Respiratory rate 16. Blood pressure 172/93. HEENT: Atraumatic, normocephalic. Oral mucosa is moist. NECK: Supple. CARDIOVASCULAR: S1, S2 heard. Rate and rhythm regular. RESPIRATORY: Clear to auscultation. GASTROINTESTINAL: Abdomen is soft. MUSCULOSKELETAL: No tenderness. No edema. DERMATOLOGIC: No skin rash. NEUROLOGIC: Alert and awake and oriented x3. No focal neurologic deficits. Moving all the extremities. PSYCHIATRIC: Mood and affect normal. LABORATORY DATA: Potassium 4.8, BUN is 57, and creatinine is 9.2. ASSESSMENT AND PLAN: 1. End-stage renal disease. Plan to have dialysis as tolerated. We will continue dialysis Friday, Friday, Friday, but the patient agreed to have 2 hours dialysis, did not finish dialysis yesterday and is having some shortness of breath and is slightly hypoxic and his eyes are puffy. 2. Plan to have 2 hours of dialysis with ultrafiltration only. Limit fluid intake. 3. Edema, I will remove fluid with dialysis. 4. Hypertension. 5. Anemia of chronic disease. 6. Hyponatremia. 7. Hypoalbuminemia. Prognosis is poor. We will have an extra session of dialysis today. Job ID: [id number]
--- NOTE | 2020-09-05 15:33 | CON ---
DATE OF CONSULTATION: 09/05/2020 PRIMARY GENERAL REPAIR MECHANIC: Dr. José Pierre. HISTORY OF PRESENT ILLNESS: Mr. Martínez is a pleasant 25-year-old gentleman, who comes to the hospital for having a cough and left-sided chest and abdominal pain. 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 He was admitted for this and eventually diagnosed with MRSA bacteremia. Secondary to this, Cardiology is being consulted for consideration of a transesophageal echo to evaluate for endocarditis. Mr. Martínez denies any more chest pain, tightness, or pressure. PAST MEDICAL HISTORY: 1. End-stage renal disease, on hemodialysis. 2. Goodpasture disease. 3. Status post renal transplant, status post rejection of the transplant and back on dialysis. 4. Anemia of chronic disease. 5. Eczema. PAST SURGICAL HISTORY: 1. Right kidney transplant. 2. Left and right arm fistulas. SOCIAL HISTORY: Uses marijuana. No tobacco or alcohol. FAMILY HISTORY: Noncontributory. OUTPATIENT MEDICATIONS: 1. Renvela. 2. Nexium. 3. Cymbalta. 4. Amitriptyline. 5. Zofran. 6. Labetalol 600 mg b.i.d. 7. Hydrocortisone cream. 8. Gabapentin. 9. Prednisone a day. 10. Hydralazine 100 mg q.p.m. and 100 mg in the morning. 11. Clonidine 0.3 t.i.d. 12. Nifedipine 60 mg a day. ALLERGIES: LORABID OR LORACARBEF. REVIEW OF SYSTEMS: A 12-point review of systems was done and was found to be negative other than stated in the history of present illness. PHYSICAL EXAMINATION: VITAL SIGNS: Temperature 98.9, pulse 96 to 112, respiratory rate 18, saturating 98% on 2 L nasal cannula, and blood pressure 170/114. GENERAL: Awake, alert, and oriented x3. No distress. HEENT: Normocephalic and atraumatic. NECK: Supple. LUNGS: Clear. CARDIOVASCULAR: S1 and S2. No S3 or S4. There is a grade 2/6 systolic murmur at the right upper sternal border. ABDOMEN: Soft. Positive bowel sounds. EXTREMITIES: Trace edema. SKIN: Warm and dry. LABORATORY DATA: Laboratory work was reviewed. White count of 6, hemoglobin of 7.5, which is chronic for him. He has been as low as 5.2 or 4.4 in the past. Platelet count of 83. Chemistries with a sodium 134, potassium is 4.8. GFR of 9. Ferritin was 1787. CRP was 3. BNP at 7990. Albumin of 3.2. COVID-19 PCR was not detected. Echocardiogram showed an EF of 55% to 60%, pulmonary hypertension, bioprosthetic mitral valve that is not well enough seen to rule out endocarditis. Methicillin-resistant Staph aureus on two different blood cultures from the right and left arms. ASSESSMENT AND PLAN: 1. Methicillin-resistant Staphylococcus aureus bacteremia. 2. History of bioprosthetic mitral valve replacement. 3. End-stage renal disease. 4. Hypertension, poorly controlled. PLAN: 1. Agree with plan on transesophageal echo. We will plan on scheduling this for tomorrow with his primary pathology tech, Dr. Pierre. 2. N.p.o. post midnight. I have spoken with him at length about risks and benefits of the procedure. Risks included, but not limited to, esophageal rupture, GI bleeding, anemia, need for surgical repair, tooth injury, pharyngeal injury. The patient understands, verbalized understanding of this and agrees to proceed. Further recommendations per results of transesophageal echo to be performed by Dr. Pierre tomorrow. Job ID: [id number]
[2020-09-05 16:37] LABS: EliA Vaculitis New Method **** NEW METHOD ****; Glomerular Basemt Membrane Ab 2.2 EliAU/mL (<7 Negative)
--- NOTE | 2020-09-05 17:08 | PRG ---
DATE OF SERVICE: 09/05/2020 SUBJECTIVE: Still lower abdominal pain, which is moderate. No respiratory symptoms. No back pain. No appendicular structure symptoms. OBJECTIVE: VITAL SIGNS: He has been afebrile since admission, blood pressure 171/114, heart rate 103, and he is saturating at 97% with 3 L nasal cannula. GENERAL: He is chronically ill appearing and appears oriented. A bit more comfortable than when I saw him first time. LUNGS: Symmetric air entry. A few crackles at the very bases. HEART: S1 and S2 with a soft apex murmur. ABDOMEN: Soft. Mild tenderness in the lower quadrants. No ascites. No joint inflammatory activity. LABORATORY DATA: Sodium 134, creatinine 9.23, alkaline phosphatase 147. Ferritin 1700. White cell count 6.4, hemoglobin 7.6, and platelets 83,000. SARS-COVID is not detected. Blood cultures with MRSA from 09/01, 12/26 sets. Transthoracic echo with 55% to 60% ejection fraction and bioprosthetic mitral valve with already demonstrated vegetations from previous MICHAEL done at [facility]. 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 We will continue vancomycin, rifampin, and gentamicin for treatment of mitral valve methicillin-resistant Staphylococcus aureus endocarditis, prosthetic valve endocarditis. This is a high risk infection for failure of medical treatment. Dr. Eisenberg has evaluated the patient today and plan to transesophageal echo has been scheduled with Dr. Pierre. Job ID: [id number]
--- NOTE | 2020-09-05 17:58 | PDOC.HOSPP ---
- Subjective Encounter Date: 09/05/20 Subjective: Patient was able to get his EJ as he requested. However, now he would like to have it removed because the dressing is itchy. Otherwise he is without significant complaint. - Objective Vital Signs & Weight: Vital Signs (12 hours) Temp Pulse Resp BP BP Pulse Ox 09/05/20 14:48 98.4 F 103 H 20 170/114 H 170/114 H 97 09/05/20 14:47 170/114 H 09/05/20 10:48 112 H 172/93 H 09/05/20 08:00 96 171/115 H 09/05/20 07:59 96 175/115 H 09/05/20 07:58 171/115 H 09/05/20 07:21 98.9 F 96 16 185/106 H 100 Weight Weight 182 lb 15.739 oz I&O: 09/04/20 09/05/20 09/06/20 06:59 06:59 06:59 Intake Total 960 Balance 960 Result Diagrams: 09/04/20 04:41 09/04/20 04:41 Hospitalist ROS - Medication Medications: Active Medications Generic Name Dose Route Start Last Admin Trade Name Freq PRN Reason Stop Dose Admin Acetaminophen/Codeine Phosphate 2 tab 09/04/20 17:19 09/04/20 17:36 Acetaminophen/Codeine 30-300mg Tablet PO 2 tab Q6H PRN Administration Moderate Pain (4-6) Al Hydroxide/Mg Hydroxide 30 ml 09/02/20 05:54 09/02/20 15:12 Mag-Al 1200 Mg/1200 Mg/30 Ml Udcup PO 30 ml Q6H PRN Administration Heartburn or Indigestion Amitriptyline HCl 100 mg 09/04/20 21:00 09/04/20 20:13 Amitriptyline Hcl 100 Mg Tab PO 100 mg QPM ALANNA Administration Ascorbic Acid 1,000 mg 09/02/20 09:00 09/05/20 07:59 Ascorbic Acid 500 Mg Chewable Tablet PO 1,000 mg DAILY ALANNA Administration Clonidine 0.3 mg 09/04/20 15:00 09/05/20 14:47 Clonidine 0.3 Mg Tab PO 0.3 mg TID ALANNA Administration Diphenhydramine HCl 25 mg 09/02/20 17:53 09/05/20 14:50 Diphenhydramine 50 Mg/Ml Vial IVP 25 mg Q6H PRN Administration Itching & Insomnia Duloxetine HCl 60 mg 09/05/20 09:00 09/05/20 07:59 Duloxetine 60 Mg Cap PO 60 mg DAILY ALANNA Administration Epoetin John-epbx 20,000 unit 09/02/20 09:00 09/02/20 10:35 Epoetin John-Epbx (Esrd) 10,000 Unit/Ml Vial SC 20,000 unit Q7D ALANNA Administration Gabapentin 100 mg 09/04/20 21:00 09/04/20 20:13 Gabapentin 100 Mg Cap PO 100 mg HS ALANNA Administration Heparin Sodium (Porcine) 5,000 units 09/02/20 15:00 09/05/20 15:00 Heparin 5,000 Units/Ml Vial SC 5,000 units TID ALANNA Administration Hydralazine HCl 100 mg 09/04/20 21:00 09/05/20 14:48 Hydralazine 25 Mg Tab PO 100 mg TID ALANNA Administration Morphine Sulfate 2 mg 09/01/20 17:51 09/05/20 14:49 Morphine 2 Mg/Ml Vial SLOW IVP 2 mg Q4H PRN Administration Severe Pain (7-10) Nifedipine 90 mg 09/05/20 09:00 09/05/20 07:59 Nifedipine Xl 90 Mg Tab PO 90 mg DAILY ALANNA Administration Ondansetron HCl 4 mg 09/01/20 16:35 09/04/20 03:36 Ondansetron Pf 4 Mg/2 Ml Vial IVP 4 mg Q6H PRN Administration Nausea/Vomiting Pantoprazole Sodium 40 mg 09/03/20 09:00 09/05/20 08:00 Pantoprazole 40 Mg Tab PO 40 mg DAILY ALANNA Administration Rifampin 300 mg 09/02/20 22:00 09/05/20 10:35 Rifampin 300 Mg Cap PO 300 mg 1000,2200 AALNNA Administration Senna 2 tab 09/03/20 21:49 09/04/20 00:59 Senokot 8.6 Mg Tab PO 2 tab HSPRN PRN Administration Constipation Sevelamer Carbonate 2,400 mg 09/02/20 08:00 09/05/20 11:12 Sevelamer Carbonate 800 Mg Tab PO Not Given TID-WM ALANNA - Exam General Appearance: NAD, awake alert Heart: RRR, no murmur, no gallops, no rubs, normal peripheral pulses Heart - other findings: A bit hyperdynamic in the apex Respiratory: CTAB, no wheezes, no rales, no ronchi, normal chest expansion, no tachypnea, normal percussion Gastrointestinal: soft, non-tender, non-distended, normal bowel sounds, no palpable masses, no hepatomegaly, no splenomegaly, no bruit Extremities: no cyanosis, no clubbing, no edema Skin: normal turgor Skin - other findings: Excoriated Musculoskeletal: generalized weakness Psychiatric: normal affect, normal behavior Hosp A/P (1) MRSA bacteremia Code(s): R78.81 - BACTEREMIA; B95.62 - METHICILLIN RESIS STAPH INFCT CAUSING DISEASES CLASSD ELSWHR Status: Acute (2) Abdominal pain Code(s): R10.9 - UNSPECIFIED ABDOMINAL PAIN Status: Chronic Qualifiers: Abdominal location: generalized Qualified Code(s): R10.84 - Generalized abdominal pain (3) Anemia of renal disease Code(s): D63.1 - ANEMIA IN CHRONIC KIDNEY DISEASE Status: Chronic (4) Chronic pain Code(s): G89.29 - OTHER CHRONIC PAIN Status: Chronic (5) ESRD (end stage renal disease) on dialysis Code(s): N18.6 - END STAGE RENAL DISEASE; Z99.2 - DEPENDENCE ON RENAL DIALYSIS Status: Chronic (6) H/O kidney transplant Status: Chronic (7) H/O mitral valve replacement Code(s): Z95.2 - PRESENCE OF PROSTHETIC HEART VALVE Status: Chronic (8) Hypertension Code(s): I10 - ESSENTIAL (PRIMARY) HYPERTENSION Status: Chronic Qualifiers: Hypertension type: essential hypertension Qualified Code(s): I10 - Essential (primary) hypertension (9) Secondary hyperparathyroidism of renal origin Code(s): N25.81 - SECONDARY HYPERPARATHYROIDISM OF RENAL ORIGIN Status: Chronic (10) History of endocarditis Code(s): Z86.79 - PERSONAL HISTORY OF OTHER DISEASES OF THE CIRCULATORY SYSTEM Status: Acute - Plan MRSA bacteremia, history of endocarditis: Patient continues on vancomycin coverage. Patient has multiple cultures over time positive for MRSA. He has a bioprosthetic valve. Will obtain a MICHAEL. Subsequent plan will be to transfer to [place] if there is significant valvular disease or damage. Otherwise we may have the option to continue with IV vancomycin with dialysis. End-stage renal disease on dialysis: Continue dialysis per nephrology. Chronic abdominal pain: Patient has reported this over long period of time through multiple admissions with significant work-up and no significant findings. Anemia: Hemoglobin is in line with his historical baseline. Hypertension: Patient's blood pressure is significantly elevated. He is on several antihypertensive medications at reasonable doses. Increased his oral medication s significantly. Seems to be some better.
[2020-09-05] MEDS ORDERED: Gentamicin Sulfate 100 MG in Premix Bag 1 BAG IVPB SCH (20:00)
[2020-09-05] MEDS: Amitriptyline HCl 100 MG TAB PO SCH (21:03)
[2020-09-05] MEDS: Gabapentin 100 MG CAP PO SCH (21:04)
[2020-09-05] MEDS: Ondansetron PF 4 MG/2 ML Vial IVP PRN (21:08)
[2020-09-05] MEDS ORDERED: Gentamicin 80 MG/2 ML VIAL IM SCH (23:59)
[2020-09-06] MEDS: Morphine 2 MG/ML VIAL SLOW IVP PRN ×3 (03:15→21:11)
[2020-09-06] MEDS: diphenhydrAMINE 50 MG/ML VIAL IVP PRN ×3 (03:16→21:09)
[2020-09-06] MEDS: Ondansetron PF 4 MG/2 ML Vial IVP PRN (03:16)
[2020-09-06] MEDS: Sevelamer Carbonate 800 MG TAB PO SCH ×3 (08:34→17:40)
[2020-09-06] MEDS: hydrALAZINE 25 MG TAB PO SCH ×3 (08:35→20:52)
[2020-09-06] MEDS: Heparin 5,000 UNITS/ML VIAL SC SCH ×3 (08:35→23:33)
[2020-09-06] MEDS: Ascorbic Acid 500 mg Chewable Tablet PO SCH (08:35)
[2020-09-06] MEDS: NIFEdipine XL 90 MG TAB PO SCH (08:35)
[2020-09-06] MEDS: Rifampin 300 MG CAP PO SCH ×2 (08:36→21:09)
[2020-09-06] MEDS: DULoxetine 60 MG CAP PO SCH (08:36)
[2020-09-06] MEDS: cloNIDine 0.3 MG TAB PO SCH ×3 (08:36→20:51)
--- NOTE | 2020-09-06 10:46 | PRG ---
DATE OF SERVICE: 09/06/2020 SUBJECTIVE: Patient was seen and examined at bedside and overnight events noted. Patient denies any shortness of breath or chest pain or palpitation. No history of nausea or vomiting or diarrhea or fever or chills or cramps. OBJECTIVE: GENERAL: This is a well-built male in no apparent distress. VITAL SIGNS: Temperature Heart rate 99. Respiratory rate 18. Blood pressure . HEENT: Atraumatic, normocephalic. Oral mucosa is moist NECK: Supple. CARDIOVASCULAR: S1, S2 heard. Rate and rhythm regular. RESPIRATORY: Clear to auscultation. GASTROINTESTINAL: Abdomen is soft. MUSCULOSKELETAL: No tenderness. No edema. DERMATOLOGIC: No skin rash. NEUROLOGIC: Alert and awake and oriented X3. No focal neurologic deficits. Moving all the extremities. PSYCHIATRIC: Mood and affect normal. LABORATORY DATA: Potassium 4.8, BUN is 57, creatinine is 9.2. ASSESSMENT AND PLAN: 1. End-stage renal disease, continue dialysis as tolerated. 2. Edema, controlled. 3. Hypertension. 4. Anemia of chronic disease. Plan to continue on dialysis as tolerated. Job ID: [id number]
[2020-09-06] MEDS ORDERED: PROPOFOL 200 MG/20 ML VIAL ONE (11:14)
[2020-09-06 13:15] LABS: Vancomycin, Random 27.2 ug/mL (See Comment)
[2020-09-06 13:16] LABS: Anion Gap 18 mmol/L (10-20); BUN (Urea Nitrogen) 40 mg/dL (8.9-20.6); Calc. Creatinine Clearance 17 mL/min (70-130); Calcium 9.3 mg/dL (7.8-10.44); Carbon Dioxide 27 mmol/L (22-29); Chloride 97 mmol/L (98-107); Estimated GFR-MDRD 11; Glucose 78 mg/dL (70-105); Potassium 4.5 mmol/L (3.5-5.1); Sodium 137 mmol/L (136-145)
[2020-09-06] MEDS ORDERED: PROPOFOL 20 ML ONE (14:40)
[2020-09-06] MEDS ORDERED: Metoclopramide HCl 10 MG/2 ML VIAL ONE (14:43)
[2020-09-06] MEDS ORDERED: Sodium Chloride 0.9% (PF) 10 ML VIAL FS PRN (15:00)
[2020-09-06] MEDS ORDERED: Pantoprazole 40 MG VIAL IVP SCH (15:00)
[2020-09-06] MEDS ORDERED: hydrALAZINE 20 MG/ML VIAL SLOW IVP PRN (16:28)
[2020-09-06] MEDS ORDERED: NIFEdipine XL 60 MG TAB PO SCH ×2 (16:45→21:00)
--- NOTE | 2020-09-06 16:50 | PDOC.HOSPP ---
- Subjective Encounter Date: 09/06/20 Encounter Time: 16:50 Subjective: f/u for bioprosthetic mitral valve endocarditis with MRSA on current Gentamicin/Vancomycin/Rifampin. Awaiting final MICHAEL results today. - Objective Vital Signs & Weight: Vital Signs (12 hours) Temp Pulse Resp BP BP Pulse Ox 09/06/20 15:16 178/109 H 09/06/20 15:14 178/109 H 09/06/20 08:36 178/109 H 09/06/20 08:35 99 09/06/20 08:14 98.1 F 99 14 170/117 H 96 09/06/20 08:00 96 Weight Weight 182 lb 15.739 oz Result Diagrams: 09/04/20 04:41 09/06/20 09:25 Additional Labs: Microbiology 09/01/20 12:55 Nasal swab Influenza Types A,B Direct EIA - Final 09/01/20 11:51 Venous blood - Right Hand Blood Culture - Final Staphylococcus aureus 09/01/20 11:51 Venous blood - Left Arm Blood Culture - Final Methicillin resistant S.aureus Laboratory Tests 09/01/20 09/01/20 09/01/20 11:52 11:52 11:52 Hgb 7.5 L Plt Count 82 L D-Dimer 7.96 H BUN Creatinine Ferritin C-Reactive Protein 3.00 H SARS-CoV-2 (PCR) 09/01/20 09/01/20 09/02/20 12:55 17:58 07:18 Hgb Plt Count D-Dimer BUN 34 H Creatinine 6.71 H Ferritin 1787.12 H C-Reactive Protein SARS-CoV-2 (PCR) Not Detected 09/02/20 09/04/20 07:18 04:41 Hgb 7.7 L Plt Count 74 L D-Dimer BUN 57 H Creatinine 9.23 H Ferritin C-Reactive Protein SARS-CoV-2 (PCR) Hospitalist ROS - Medication Medications: Active Medications Generic Name Dose Route Start Last Admin Trade Name Freq PRN Reason Stop Dose Admin Acetaminophen/Codeine Phosphate 2 tab 09/04/20 17:19 09/04/20 17:36 Acetaminophen/Codeine 30-300mg Tablet PO 2 tab Q6H PRN Administration Moderate Pain (4-6) Al Hydroxide/Mg Hydroxide 30 ml 09/02/20 05:54 09/02/20 15:12 Mag-Al 1200 Mg/1200 Mg/30 Ml Udcup PO 30 ml Q6H PRN Administration Heartburn or Indigestion Amitriptyline HCl 100 mg 09/04/20 21:00 09/05/20 21:03 Amitriptyline Hcl 100 Mg Tab PO 100 mg QPM ALANNA Administration Ascorbic Acid 1,000 mg 09/02/20 09:00 09/06/20 08:35 Ascorbic Acid 500 Mg Chewable Tablet PO 1,000 mg DAILY ALANNA Administration Clonidine 0.3 mg 09/04/20 15:00 09/06/20 15:16 Clonidine 0.3 Mg Tab PO 0.3 mg TID ALANNA Administration Diphenhydramine HCl 25 mg 09/02/20 17:53 09/06/20 08:34 Diphenhydramine 50 Mg/Ml Vial IVP 25 mg Q6H PRN Administration Itching & Insomnia Duloxetine HCl 60 mg 09/05/20 09:00 09/06/20 08:36 Duloxetine 60 Mg Cap PO 60 mg DAILY ALANNA Administration Epoetin John-epbx 20,000 unit 09/02/20 09:00 09/02/20 10:35 Epoetin John-Epbx (Esrd) 10,000 Unit/Ml Vial SC 20,000 unit Q7D ALANNA Administration Gabapentin 100 mg 09/04/20 21:00 09/05/20 21:04 Gabapentin 100 Mg Cap PO 100 mg HS ALANNA Administration Heparin Sodium (Porcine) 5,000 units 09/02/20 15:00 09/06/20 15:14 Heparin 5,000 Units/Ml Vial SC 5,000 units TID ALANNA Administration Hydralazine HCl 100 mg 09/04/20 21:00 09/06/20 15:14 Hydralazine 25 Mg Tab PO 100 mg TID ALANNA Administration Morphine Sulfate 2 mg 09/01/20 17:51 09/06/20 08:38 Morphine 2 Mg/Ml Vial SLOW IVP 2 mg Q4H PRN Administration Severe Pain (7-10) Ondansetron HCl 4 mg 09/01/20 16:35 09/06/20 03:16 Ondansetron Pf 4 Mg/2 Ml Vial IVP 4 mg Q6H PRN Administration Nausea/Vomiting Pantoprazole Sodium 40 mg 09/03/20 09:00 09/06/20 08:36 Pantoprazole 40 Mg Tab PO 40 mg DAILY ALANNA Administration Pantoprazole Sodium 40 mg 09/06/20 15:00 09/06/20 15:15 Pantoprazole 40 Mg Vial IVP 09/06/20 17:00 40 mg NOW ALANNA Administration Rifampin 300 mg 09/02/20 22:00 09/06/20 08:36 Rifampin 300 Mg Cap PO 300 mg 1000,2200 ALANNA Administration Senna 2 tab 09/03/20 21:49 09/04/20 00:59 Senokot 8.6 Mg Tab PO 2 tab HSPRN PRN Administration Constipation Sevelamer Carbonate 2,400 mg 09/02/20 08:00 09/06/20 08:36 Sevelamer Carbonate 800 Mg Tab PO 2,400 mg TID-WM ALANNA Administration - Exam General Appearance: NAD, awake alert Eye: PERRL, anicteric sclera ENT: normocephalic atraumatic, no oropharyngeal lesions Neck: supple, symmetric, no JVD, no thyromegaly, no lymphadenopathy Heart: RRR, no gallops, no rubs, normal peripheral pulses Heart - other findings: S1, S2 Respiratory: CTAB, no wheezes, no rales, no ronchi, normal chest expansion, no tachypnea Gastrointestinal: soft, non-tender, non-distended, normal bowel sounds, no palpable masses Extremities: no cyanosis, no clubbing, no edema Skin: normal turgor Neurological: cranial nerve grossly intact, no new deficit Musculoskeletal: normal tone, normal strength Psychiatric: normal affect, A&O x 3 Hosp A/P (1) Endocarditis of mitral valve Code(s): I05.8 - OTHER RHEUMATIC MITRAL VALVE DISEASES Status: Acute Plan: Continue Gentamicin/Rifampin/Vancomycin, MICHAEL pending today (2) Acute on chronic anemia Code(s): D64.9 - ANEMIA, UNSPECIFIED Status: Acute Plan: No PRBC's needed currently, serial monitoring (3) ESRD (end stage renal disease) on dialysis Code(s): N18.6 - END STAGE RENAL DISEASE; Z99.2 - DEPENDENCE ON RENAL DIALYSIS Status: Chronic Plan: HD per Liza service (4) Thrombocytopenia Code(s): D69.6 - THROMBOCYTOPENIA, UNSPECIFIED Status: Chronic Plan: No need for platelet transfusion - Plan continue antibiotics, social services analyst, out of bed/ambulate, DVT proph w/SCDs Stable currently Await final MICHAEL results Continue Gentamicin/Rifampin/Vancomycin OOB/ambulate Resume home BP meds AM lab: CBC
--- NOTE | 2020-09-06 17:30 | EKG ---
Test Reason : STAT Blood Pressure : / mmHG Vent. Rate : 098 BPM Atrial Rate : 098 BPM P-R Int : 188 ms QRS Dur : 094 ms QT Int : 370 ms P-R-T Axes : 071 056 071 degrees QTc Int : 472 ms Normal sinus rhythm Normal ECG When compared with ECG of 01-SEP-2020 11:30, (Unconfirmed) No significant change was found Confirmed by DR. Carlos Alberto GONZALEZ ([id number]) on 09/06/2020 5:29:59 PM Referred By: BRITTANY Confirmed By:DR. Carlos Alberto GONZALEZ
[2020-09-06] MEDS: Amitriptyline HCl 100 MG TAB PO SCH (20:51)
[2020-09-06] MEDS: Gabapentin 100 MG CAP PO SCH (20:52)
[2020-09-06] MEDS ORDERED: NIFEdipine XL 90 MG TAB PO SCH (21:00)
[2020-09-06] MEDS ORDERED: Senokot S 8.6-50 MG TAB PO PRN (23:15)
[2020-09-06] MEDS: Bisacodyl 5 MG TAB PO PRN (23:33)
[2020-09-07] MEDS: diphenhydrAMINE 50 MG/ML VIAL IVP PRN ×4 (02:41→19:55)
[2020-09-07] MEDS: Morphine 2 MG/ML VIAL SLOW IVP PRN ×4 (02:42→19:54)
[2020-09-07] MEDS: NIFEdipine XL 60 MG TAB PO SCH ×2 (07:48→20:01)
[2020-09-07] MEDS: Sevelamer Carbonate 800 MG TAB PO SCH ×3 (07:49→16:32)
[2020-09-07] MEDS: hydrALAZINE 25 MG TAB PO SCH ×3 (07:49→20:00)
[2020-09-07] MEDS: cloNIDine 0.3 MG TAB PO SCH ×3 (07:49→19:59)
[2020-09-07] MEDS: Ascorbic Acid 500 mg Chewable Tablet PO SCH (07:49)
[2020-09-07] MEDS: Heparin 5,000 UNITS/ML VIAL SC SCH ×2 (07:50→14:08)
[2020-09-07] MEDS: DULoxetine 60 MG CAP PO SCH (07:50)
[2020-09-07 08:11] LABS: #Lymphocytes 1.2 thou/uL (1.20-3.40); #Monocytes 0.5 thou/uL (0.11-0.59); #Neutrophils 3.7 thou/uL (1.40-6.50); %Basophils 0.4 % (0.0-1.0); %Lymphocytes 19.1 % (21.0-51.0); %Monocytes 8.3 % (0.0-10.0); %Neutrophils 56.2 % (42.0-75.0); Hemoglobin 7.4 g/dL (14.0-18.0); Mean Corpuscular HGB CONC 32.9 g/dL (32.0-36.0); Mean Corpuscular Volume 94.3 fL (78.0-98.0); Mean Platelet Volume 9.6 fL (7.4-10.4); Platelet Count 105 thou/uL (130-400); RBC Distribution Width 17.3 % (11.5-14.5); Red Blood Cell (RBC) Count 2.39 mill/uL (4.70-6.10); White Blood Cell (WBC) Count 6.5 thou/uL (4.8-10.8)
--- NOTE | 2020-09-07 08:12 | OP ---
DATE OF PROCEDURE: 09/06/2020 PROCEDURE PERFORMED: Transesophageal echocardiogram. INDICATION: A 25-year-old gentleman with mitral prosthetic valve and sepsis. DESCRIPTION OF PROCEDURE: The patient was taken to the PACU. The patient was sedated by Anesthesiology. A transesophageal probe was placed into the distal esophagus and stomach. Echocardiographic images were obtained. The transesophageal probe was removed. FINDINGS: 1. Normal left ventricular systolic function. 2. Normal prosthetic mitral valve. 3. Normal aortic and tricuspid valves. 4. Trivial mitral regurgitation. 5. No vegetations were noted on the aortic, tricuspid, or prosthetic mitral valve. 6. Atherosclerotic debris in the descending aorta. IMPRESSION: No vegetations noted on the cardiac valves. Job ID: [id number] [facility]
[2020-09-07] MEDS: Labetalol 100 MG TAB PO SCH ×2 (09:33→20:09)
[2020-09-07] MEDS: Rifampin 300 MG CAP PO SCH ×2 (10:19→21:32)
--- NOTE | 2020-09-07 11:49 | PRG ---
DATE OF SERVICE: 09/07/2020 SUBJECTIVE: Patient was seen and examined at bedside and overnight events noted. Patient denies any shortness of breath or chest pain or palpitation. No history of nausea or vomiting or diarrhea or fever or chills or cramps. OBJECTIVE: General: This is a well-built male, in no apparent distress. Vital Signs: Temperature . Heart Rate . Respiratory rate 16. Blood pressure 162/89. HEENT: Atraumatic, normocephalic. Oral mucosa is moist. Neck: Supple. Cardiovascular: S1, S2 heard. Rate and rhythm regular. Respiratory: Clear to auscultation. Gastrointestinal: Abdomen is soft. Musculoskeletal: No tenderness. No edema. Dermatologic: No skin rash. Neurologic: Alert and awake and oriented x3. No focal neurologic deficits. Moving all the extremities. Psychiatric: Mood and affect normal. LABORATORY DATA: Potassium 4.5, BUN is 40, creatinine is 7.7. ASSESSMENT AND PLAN: 1. End-stage renal disease. Continue on dialysis Friday, Friday, and Friday. 2. Edema, I will remove fluid. 3. Hypertension. 4. Anemia of chronic disease. We will continue on dialysis as tolerated. Job ID: [id number]
[2020-09-07] MEDS ORDERED: Iopamidol-370 76% 500 ML 1 ML ONE (14:43)
--- NOTE | 2020-09-07 15:30 | PDOC.HOSPP ---
- Subjective Encounter Date: 09/07/20 Encounter Time: 15:25 Subjective: f/u for MRSA bacteremia with negative MICHAEL for vegetations. Receiving Gentamicin/Vancomycin/Rifampin currently. - Objective Vital Signs & Weight: Vital Signs (12 hours) Temp Pulse Resp BP Pulse Ox 09/07/20 14:06 93 09/07/20 09:33 93 09/07/20 08:00 100 09/07/20 07:49 93 09/07/20 07:48 93 09/07/20 07:28 98.2 F 93 16 100 09/07/20 04:30 162/89 H Weight Weight 182 lb 15.739 oz I&O: 09/06/20 09/07/20 09/08/20 06:59 06:59 06:59 Intake Total 800 480 Balance 800 480 Result Diagrams: 09/07/20 07:37 09/06/20 09:25 Additional Labs: Microbiology 09/01/20 12:55 Nasal swab Influenza Types A,B Direct EIA - Final 09/01/20 11:51 Venous blood - Right Hand Blood Culture - Final Staphylococcus aureus 09/01/20 11:51 Venous blood - Left Arm Blood Culture - Final Methicillin resistant S.aureus Laboratory Tests 09/01/20 09/01/20 09/01/20 11:52 11:52 11:52 Hgb 7.5 L Plt Count 82 L D-Dimer 7.96 H BUN Creatinine Ferritin C-Reactive Protein 3.00 H SARS-CoV-2 (PCR) 09/01/20 09/01/20 09/02/20 12:55 17:58 07:18 Hgb Plt Count D-Dimer BUN 34 H Creatinine 6.71 H Ferritin 1787.12 H C-Reactive Protein SARS-CoV-2 (PCR) Not Detected 09/02/20 09/04/20 07:18 04:41 Hgb 7.7 L Plt Count 74 L D-Dimer BUN 57 H Creatinine 9.23 H Ferritin C-Reactive Protein SARS-CoV-2 (PCR) Radiology Reviewed by me: Yes (MICHAEL - no vegetations noted) Hospitalist ROS - Medication Medications: Active Medications Generic Name Dose Route Start Last Admin Trade Name Freq PRN Reason Stop Dose Admin Acetaminophen/Codeine Phosphate 2 tab 09/04/20 17:19 09/04/20 17:36 Acetaminophen/Codeine 30-300mg Tablet PO 2 tab Q6H PRN Administration Moderate Pain (4-6) Al Hydroxide/Mg Hydroxide 30 ml 09/02/20 05:54 09/02/20 15:12 Mag-Al 1200 Mg/1200 Mg/30 Ml Udcup PO 30 ml Q6H PRN Administration Heartburn or Indigestion Amitriptyline HCl 100 mg 09/04/20 21:00 09/06/20 20:51 Amitriptyline Hcl 100 Mg Tab PO 100 mg QPM ALANNA Administration Ascorbic Acid 1,000 mg 09/02/20 09:00 09/07/20 07:49 Ascorbic Acid 500 Mg Chewable Tablet PO 1,000 mg DAILY ALANNA Administration Bisacodyl 10 mg 09/06/20 23:15 09/06/20 23:33 Bisacodyl 5 Mg Tab PO 10 mg DAILYPRN PRN Administration Constipation Clonidine 0.3 mg 09/04/20 15:00 09/07/20 14:06 Clonidine 0.3 Mg Tab PO 0.3 mg TID ALANNA Administration Diphenhydramine HCl 25 mg 09/02/20 17:53 09/07/20 14:06 Diphenhydramine 50 Mg/Ml Vial IVP 25 mg Q6H PRN Administration Itching & Insomnia Duloxetine HCl 60 mg 09/05/20 09:00 09/07/20 07:50 Duloxetine 60 Mg Cap PO 60 mg DAILY ALANNA Administration Epoetin John-epbx 20,000 unit 09/02/20 09:00 09/02/20 10:35 Epoetin John-Epbx (Esrd) 10,000 Unit/Ml Vial SC 20,000 unit Q7D ALANNA Administration Gabapentin 100 mg 09/04/20 21:00 09/06/20 20:52 Gabapentin 100 Mg Cap PO 100 mg HS ALANNA Administration Heparin Sodium (Porcine) 5,000 units 09/02/20 15:00 09/07/20 14:08 Heparin 5,000 Units/Ml Vial SC 5,000 units TID ALANNA Administration Hydralazine HCl 100 mg 09/04/20 21:00 09/07/20 14:06 Hydralazine 25 Mg Tab PO 100 mg TID ALANNA Administration Labetalol HCl 200 mg 09/07/20 09:00 09/07/20 09:33 Labetalol 100 Mg Tab PO 200 mg BID ALANNA Administration Morphine Sulfate 2 mg 09/01/20 17:51 09/07/20 14:07 Morphine 2 Mg/Ml Vial SLOW IVP 2 mg Q4H PRN Administration Severe Pain (7-10) Nifedipine 60 mg 09/07/20 09:00 09/07/20 07:48 Nifedipine Xl 60 Mg Tab PO 60 mg BID ALANNA Administration Ondansetron HCl 4 mg 09/01/20 16:35 09/06/20 03:16 Ondansetron Pf 4 Mg/2 Ml Vial IVP 4 mg Q6H PRN Administration Nausea/Vomiting Pantoprazole Sodium 40 mg 09/03/20 09:00 09/07/20 07:49 Pantoprazole 40 Mg Tab PO 40 mg DAILY ALANNA Administration Rifampin 300 mg 09/02/20 22:00 09/07/20 10:19 Rifampin 300 Mg Cap PO 300 mg 1000,2200 ALANNA Administration Sevelamer Carbonate 2,400 mg 09/02/20 08:00 09/07/20 11:53 Sevelamer Carbonate 800 Mg Tab PO 2,400 mg TID-WM ALANNA Administration - Exam General Appearance: NAD, awake alert Eye: PERRL, anicteric sclera ENT: normocephalic atraumatic, no oropharyngeal lesions Neck: supple, symmetric, no JVD, no thyromegaly, no lymphadenopathy Heart: RRR, no gallops, no rubs, normal peripheral pulses Heart - other findings: S1, S2 Respiratory: CTAB, no wheezes, no rales, no ronchi, normal chest expansion Gastrointestinal: soft, non-tender, non-distended, normal bowel sounds, no palpable masses Extremities: no cyanosis, no clubbing, no edema Skin: normal turgor, no lesions Neurological: cranial nerve grossly intact, no new deficit Musculoskeletal: normal tone, normal strength, no muscle wasting Psychiatric: normal affect, A&O x 3 Hosp A/P (1) MRSA bacteremia Code(s): R78.81 - BACTEREMIA; B95.62 - METHICILLIN RESIS STAPH INFCT CAUSING DISEASES CLASSD ELSWHR Status: Acute Plan: Continue Vancomycin/Rifampin/Gentamicin, plan for outpt IV abx with HD x 6 weeks, MICHAEL negative for vegetations (2) Acute on chronic anemia Code(s): D64.9 - ANEMIA, UNSPECIFIED Status: Acute Plan: Serial H/H monitoring, may need PRBC's with HD (3) ESRD (end stage renal disease) on dialysis Code(s): N18.6 - END STAGE RENAL DISEASE; Z99.2 - DEPENDENCE ON RENAL DIALYSIS Status: Chronic Plan: HD per Renal service (4) Thrombocytopenia Code(s): D69.6 - THROMBOCYTOPENIA, UNSPECIFIED Status: Chronic - Plan continue antibiotics, social services director, out of bed/ambulate, DVT proph w/SCDs Stable currently Continue Gentamicin/Rifampin/Vancomycin Arrange for outpt IV abx x 6 weeks OOB/ambulate Resume home BP meds HD per Renal service AM lab: H/H
--- NOTE | 2020-09-07 15:39 | PRG ---
DATE OF SERVICE: SUBJECTIVE: The patient had a MICHAEL. Dr. Pierre was the care coordinator, who performed the test and no vegetations were noted in any of the valves. The patient is feeling a little better. Less pain. No diarrhea. No dyspnea. No back pain. OBJECTIVE: LUNGS: Symmetric. Clear breath sounds. HEART: Systolic murmur at apex. ABDOMEN: Soft, not distended. EXTREMITIES: No joint inflammatory activity. LABORATORY DATA: White cell count of 6.5, hemoglobin 7.4, platelets 105. Creatinine 7.74, alkaline phosphatase 147. We have the two positive blood cultures for MRSA, which is the same organism he has had, going back to June 2019. 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 The other possibility is that his kidney graft is colonized by MRSA, he may have an abscess there, so I think we should probably image that the abdomen. The last abdomen CT scan was from July 2020, and it showed free fluid in abdomen and pelvis and interstitial opacity and right pleural effusion, so go ahead and reorder those tests before we proceed with discharge planning. I think he is going to have to be treated again in 6 weeks with vancomycin and rifampin and then the first two weeks with the gentamicin. He already completed almost the first week of the gentamicin treatment and so I think he just needs one more week and he will be done with the gentamicin component and just continue then with vancomycin sliding scale and oral rifampin 300 b.i.d. The end date of therapy will be October 15. Job ID: [id number]
[2020-09-07] MEDS ORDERED: ALPRAZolam 0.25 MG TAB PO PRN (15:55)
--- NOTE | 2020-09-07 17:41 | CT ---
CT CHEST, ABDOMEN AND PELVIS WITH ORAL AND IV CONTRAST: 09/07/20 HISTORY: MRSA bacteremia. Abdominal and bilateral leg pain and difficulty breathing. FINDINGS: Comparison is made to the CTA of 09/01/20. There is edema in the subcutaneous fat. A small right pleural effusion is again noted. There is subop timal enhancement of the solid organs. There is no pericardial effusion or left pleural effusion is s een. Diffuse ground glass opacities suspicious for edema are again seen. No pneumothoraces are seen. No pericardial effusion or left pleural effusion are seen. The spleen is enlarged measuring 14.5 cm in length. There is vicarious excretion of contrast in the g allbladder. The liver remains enlarged measuring 22 cm. No enhancing hepatic mass is seen. The pancre as and adrenal glands are normal. The kidneys are bilaterally atrophic. A large amount of ascites is present. The small bowel loops are not abnormally dilated. A calcified right renal transplant in the right hemipelvis is again noted. No evidence of aneurysmal dilatation of the thoracoabdominal aorta was seen. The small bowel loops ar e not abnormally dilated. Diffuse bone demineralization is again noted. IMPRESSION: 1. Anasarca. 2. Small right pleural effusion. 3. Diffuse ground glass opacities likely due to pulmonary edema. 4. Large ascites. 5. No evidence of small bowel obstruction. POS: [facility]
[2020-09-07] MEDS: Gabapentin 100 MG CAP PO SCH (19:59)
[2020-09-07] MEDS: Bisacodyl 5 MG TAB PO PRN (19:59)
[2020-09-07] MEDS: Amitriptyline HCl 100 MG TAB PO SCH (19:59)
[2020-09-07] MEDS: Mag-Al 1200 mg/1200 mg/30 ML UDCUP PO PRN (20:01)
[2020-09-08] MEDS: diphenhydrAMINE 50 MG/ML VIAL IVP PRN ×4 (03:40→20:21)
[2020-09-08] MEDS: Morphine 2 MG/ML VIAL SLOW IVP PRN ×4 (03:40→20:21)
[2020-09-08] MEDS: Sevelamer Carbonate 800 MG TAB PO SCH ×3 (08:26→17:00)
[2020-09-08] MEDS: hydrALAZINE 25 MG TAB PO SCH ×3 (08:26→20:20)
[2020-09-08] MEDS: Ascorbic Acid 500 mg Chewable Tablet PO SCH (08:27)
[2020-09-08] MEDS: DULoxetine 60 MG CAP PO SCH (08:28)
[2020-09-08] MEDS: cloNIDine 0.3 MG TAB PO SCH ×3 (08:28→20:19)
[2020-09-08] MEDS: NIFEdipine XL 60 MG TAB PO SCH ×2 (08:28→20:20)
[2020-09-08 08:44] LABS: Hemoglobin 7.3 g/dL (14.0-18.0); Platelet Count 109 thou/uL (130-400)
[2020-09-08 09:29] LABS: Vancomycin, Random 19.4 ug/mL (See Comment)
[2020-09-08] MEDS: Rifampin 300 MG CAP PO SCH ×2 (10:12→20:20)
[2020-09-08] MEDS: Labetalol 100 MG TAB PO SCH ×2 (10:31→20:20)
--- NOTE | 2020-09-08 15:21 | PRG ---
DATE OF SERVICE: 09/08/2020 SUBJECTIVE: Patient was seen and examined at bedside and overnight events noted. Patient denies any shortness of breath or chest pain or palpitation. No history of nausea or vomiting or diarrhea or fever or chills or cramps. OBJECTIVE: General: This is a well-built male, in no apparent distress. Vital Signs: Temperature 98.2. Heart Rate 93. Respiratory rate 18. Blood pressure . HEENT: Atraumatic, normocephalic. Oral mucosa is moist. Neck: Supple. Cardiovascular: S1, S2 heard. Rate and rhythm regular. Respiratory: Clear to auscultation. Gastrointestinal: Abdomen is soft. Musculoskeletal: No tenderness. No edema. Dermatologic: No skin rash. Neurologic: Alert and awake and oriented x3. No focal neurologic deficits. Moving all the extremities. Psychiatric: Mood and affect normal. LABORATORY DATA: Potassium 4.5, BUN is 40, creatinine is 7.7. ASSESSMENT AND PLAN: 1. End-stage renal disease. Continue dialysis, Friday, Friday, Fridays. 2. Edema, I will remove fluid. 3. Hypertension. 4. Anemia of chronic disease. 5. Continue dialysis as tolerated. Job ID: [id number]
--- NOTE | 2020-09-08 18:16 | PDOC.HOSPP ---
- Subjective Encounter Date: 09/08/20 Encounter Time: 11:00 Subjective: Patient seen for follow-up regarding bacteremia. Denies chest pain or shortness of breath. - Objective Vital Signs & Weight: Vital Signs (12 hours) Temp Pulse Resp BP BP Pulse Ox 09/08/20 15:33 93 177/102 H 09/08/20 10:31 93 177/102 H 09/08/20 08:28 93 177/102 H 09/08/20 08:26 93 09/08/20 08:00 94 L 09/08/20 07:01 98.2 F 93 20 176/115 H 94 L Weight Weight 182 lb 15.739 oz I&O: 09/07/20 09/08/20 09/09/20 06:59 06:59 06:59 Intake Total 800 720 480 Balance 800 720 480 Result Diagrams: 09/08/20 08:18 09/06/20 09:25 Additional Labs: I reviewed patient's labs and MAR Hospitalist ROS - Review of Systems Cardiovascular: denies: chest pain, palpitations, orthopnea, paroxysmal noc. dyspnea, edema, light headedness Gastrointestinal: denies: nausea, vomiting, abdominal pain, diarrhea, constipation, melena, hematochezia - Medication Medications: Active Medications Generic Name Dose Route Start Last Admin Trade Name Freq PRN Reason Stop Dose Admin Acetaminophen/Codeine Phosphate 2 tab 09/04/20 17:19 09/04/20 17:36 Acetaminophen/Codeine 30-300mg Tablet PO 2 tab Q6H PRN Administration Moderate Pain (4-6) Al Hydroxide/Mg Hydroxide 30 ml 09/02/20 05:54 09/07/20 20:01 Mag-Al 1200 Mg/1200 Mg/30 Ml Udcup PO 30 ml Q6H PRN Administration Heartburn or Indigestion Amitriptyline HCl 100 mg 09/04/20 21:00 09/07/20 19:59 Amitriptyline Hcl 100 Mg Tab PO 100 mg QPM ALANNA Administration Ascorbic Acid 1,000 mg 09/02/20 09:00 09/08/20 08:27 Ascorbic Acid 500 Mg Chewable Tablet PO 1,000 mg DAILY ALANNA Administration Bisacodyl 10 mg 09/06/20 23:15 09/07/20 19:59 Bisacodyl 5 Mg Tab PO 10 mg DAILYPRN PRN Administration Constipation Clonidine 0.3 mg 10/12/20 15:00 09/08/20 15:33 Clonidine 0.3 Mg Tab PO Not Given TID ALANNA Diphenhydramine HCl 25 mg 09/02/20 17:53 09/08/20 13:54 Diphenhydramine 50 Mg/Ml Vial IVP 25 mg Q6H PRN Administration Itching & Insomnia Duloxetine HCl 60 mg 09/05/20 09:00 09/08/20 08:28 Duloxetine 60 Mg Cap PO 60 mg DAILY ALANNA Administration Epoetin John-epbx 20,000 unit 09/02/20 09:00 09/02/20 10:35 Epoetin John-Epbx (Esrd) 10,000 Unit/Ml Vial SC 20,000 unit Q7D ALANNA Administration Gabapentin 100 mg 09/04/20 21:00 09/07/20 19:59 Gabapentin 100 Mg Cap PO 100 mg HS ALANNA Administration Hydralazine HCl 100 mg 09/04/20 21:00 09/08/20 15:33 Hydralazine 25 Mg Tab PO Not Given TID ALANNA Labetalol HCl 400 mg 09/08/20 09:00 09/08/20 10:31 Labetalol 100 Mg Tab PO Not Given BID [facility] Morphine Sulfate 2 mg 09/01/20 17:51 09/08/20 13:55 Morphine 2 Mg/Ml Vial SLOW IVP 2 mg Q4H PRN Administration Severe Pain (7-10) Nifedipine 60 mg 09/07/20 09:00 09/08/20 08:28 Nifedipine Xl 60 Mg Tab PO 60 mg BID ALANNA Administration Ondansetron HCl 4 mg 09/01/20 16:35 09/06/20 03:16 Ondansetron Pf 4 Mg/2 Ml Vial IVP 4 mg Q6H PRN Administration Nausea/Vomiting Pantoprazole Sodium 40 mg 09/03/20 09:00 09/08/20 08:27 Pantoprazole 40 Mg Tab PO 40 mg DAILY ALANNA Administration Rifampin 300 mg 09/02/20 22:00 09/08/20 10:12 Rifampin 300 Mg Cap PO 300 mg 1000,2200 ALANNA Administration Sevelamer Carbonate 2,400 mg 09/02/20 08:00 09/08/20 17:00 Sevelamer Carbonate 800 Mg Tab PO Not Given TID- ALANNA - Exam General Appearance: awake alert Eye: anicteric sclera ENT: no oropharyngeal lesions Neck: supple Heart: RRR Respiratory: CTAB Gastrointestinal: soft, non-tender Skin: no rashes Psychiatric: normal affect, normal behavior Hosp A/P - Plan -Assessment (1) MRSA bacteremia Code(s): R78.81 - BACTEREMIA; B95.62 - METHICILLIN RESIS STAPH INFCT CAUSING DISEASES CLASSD ELSWHR Status: Acute (2) Acute on chronic anemia Code(s): D64.9 - ANEMIA, UNSPECIFIED Status: Acute (3) ESRD (end stage renal disease) on dialysis Code(s): N18.6 - END STAGE RENAL DISEASE; Z99.2 - DEPENDENCE ON RENAL DIALYSIS Status: Chronic (4) Thrombocytopenia Code(s): D69.6 - THROMBOCYTOPENIA, UNSPECIFIED Status: Chronic - Plan Patient is on gentamicin/Rifampin/Vancomycin Antibiotic duration for 6 weeks, per ID service. OOB/ambulate Resume home meds Nephrology service following for maintenance dialysis. Transfuse as needed.
[2020-09-08] MEDS: Amitriptyline HCl 100 MG TAB PO SCH (20:20)
[2020-09-08] MEDS: Gabapentin 100 MG CAP PO SCH (20:20)
[2020-09-09] MEDS: diphenhydrAMINE 50 MG/ML VIAL IVP PRN ×4 (02:24→20:12)
[2020-09-09] MEDS: Morphine 2 MG/ML VIAL SLOW IVP PRN ×4 (02:24→20:12)
[2020-09-09] MEDS: Acetaminophen/Codeine 30-300mg Tablet PO PRN ×2 (06:38→11:38)
[2020-09-09] MEDS: cloNIDine 0.3 MG TAB PO SCH ×3 (08:41→20:11)
[2020-09-09] MEDS: Labetalol 100 MG TAB PO SCH ×2 (08:41→20:12)
[2020-09-09] MEDS: hydrALAZINE 25 MG TAB PO SCH ×3 (08:42→20:10)
[2020-09-09] MEDS: NIFEdipine XL 60 MG TAB PO SCH ×2 (08:43→20:11)
[2020-09-09] MEDS: DULoxetine 60 MG CAP PO SCH (08:43)
[2020-09-09] MEDS: Sevelamer Carbonate 800 MG TAB PO SCH ×3 (08:43→18:02)
[2020-09-09] MEDS: Ascorbic Acid 500 mg Chewable Tablet PO SCH (08:43)
[2020-09-09] MEDS: Rifampin 300 MG CAP PO SCH ×2 (08:44→20:11)
[2020-09-09] MEDS: EPOETIN ALFA-EPBX (ESRD) 10,000 UNIT/ML VIAL SC SCH (08:48)
--- NOTE | 2020-09-09 10:11 | PRG ---
DATE OF SERVICE: 09/09/2020 SUBJECTIVE: Patient was seen and examined at bedside and overnight events noted. Patient denies any shortness of breath or chest pain or palpitation. No history of nausea or vomiting or diarrhea or fever or chills or cramps. OBJECTIVE: GENERAL: This is a well-built male, in no apparent distress. VITAL SIGNS: Temperature 98.7. Heart Rate 98. Respiratory rate 20. Blood pressure 170/99. HEENT: Atraumatic, normocephalic. Oral mucosa is moist. NECK: Supple. CARDIOVASCULAR: S1, S2 heard. Rate and rhythm regular. RESPIRATORY: Clear to auscultation. GASTROINTESTINAL: Abdomen is soft. MUSCULOSKELETAL: No tenderness. No edema. DERMATOLOGIC: No skin rash. NEUROLOGIC: Alert and awake and oriented x3. No focal neurologic deficits. Moving all the extremities. PSYCHIATRIC: Mood and affect normal. LABORATORY DATA: Potassium 4.5, BUN is 40, creatinine is 7.7 from 09/06. ASSESSMENT AND PLAN: 1. End-stage renal disease. Continue dialysis on Friday, Friday, and Friday. 2. Edema. We will remove fluid. 3. Hypertension. 4. Anemia of chronic disease. 5. Continue dialysis as tolerated. Job ID: [id number]
--- NOTE | 2020-09-09 13:06 | EKG ---
Test Reason : CHEST PAIN Blood Pressure : / mmHG Vent. Rate : 083 BPM Atrial Rate : 083 BPM P-R Int : 168 ms QRS Dur : 096 ms QT Int : 386 ms P-R-T Axes : 051 029 070 degrees QTc Int : 453 ms Normal sinus rhythm Normal ECG Confirmed by MARIANO FERREIRA, RONIT ([id number]), photography editor ZENA JOSEPH ([id number]) on 09/09/2020 1:06:03 PM Referred By: Confirmed By:RONIT QUINTANA MD
--- NOTE | 2020-09-09 14:18 | PDOC.HOSPP ---
- Subjective Encounter Date: 09/09/20 Encounter Time: 12:40 Subjective: Pt seen for followup re; MRSA bacteremia. Denies any complaints today. - Objective Vital Signs & Weight: Vital Signs (12 hours) Temp Pulse Resp BP BP BP BP 09/09/20 11:13 97.8 F 86 20 161/94 H 09/09/20 08:43 98 170/99 H 09/09/20 08:42 98 170/99 H 09/09/20 08:41 98 170/99 H 09/09/20 08:40 09/09/20 08:00 98.7 F 111 H 20 170/99 H 09/09/20 07:20 09/09/20 06:48 160/95 H 09/09/20 05:18 09/09/20 02:36 98.8 F 90 20 170/95 H Pulse Ox 09/09/20 11:13 92 L 09/09/20 08:43 09/09/20 08:42 09/09/20 08:41 09/09/20 08:40 94 L 09/09/20 08:00 82 L 09/09/20 07:20 94 L 09/09/20 06:48 09/09/20 05:18 95 09/09/20 02:36 95 Weight Weight 182 lb 15.739 oz I&O: 09/08/20 09/09/20 09/10/20 06:59 06:59 06:59 Intake Total 832 375 8555 Balance 304 372 6798 Result Diagrams: 09/08/20 08:18 09/06/20 09:25 Additional Labs: I reviewed patient's labs and MAR Hospitalist ROS - Review of Systems Gastrointestinal: denies: nausea, vomiting, abdominal pain, diarrhea, constipation, melena, hematochezia Genitourinary: denies: dysuria, frequency, incontinence, hematuria, retention - Medication Medications: Active Medications Generic Name Dose Route Start Last Admin Trade Name Freq PRN Reason Stop Dose Admin Acetaminophen/Codeine Phosphate 2 tab 09/04/20 17:19 09/09/20 11:38 Acetaminophen/Codeine 30-300mg Tablet PO 2 tab Q6H PRN Administration Moderate Pain (4-6) Al Hydroxide/Mg Hydroxide 30 ml 09/02/20 05:54 09/07/20 20:01 Mag-Al 1200 Mg/1200 Mg/30 Ml Udcup PO 30 ml Q6H PRN Administration Heartburn or Indigestion Alprazolam 0.25 mg 09/07/20 15:55 09/09/20 06:43 Alprazolam 0.25 Mg Tab PO 0.25 mg BIDPRN PRN Administration Anxiety Amitriptyline HCl 100 mg 09/04/20 21:00 09/08/20 20:20 Amitriptyline Hcl 100 Mg Tab PO 100 mg QPM ALANNA Administration Ascorbic Acid 1,000 mg 09/02/20 09:00 09/09/20 08:43 Ascorbic Acid 500 Mg Chewable Tablet PO Not Given DAILY ALANNA Bisacodyl 10 mg 09/06/20 23:15 09/07/20 19:59 Bisacodyl 5 Mg Tab PO 10 mg DAILYPRN PRN Administration Constipation Clonidine 0.3 mg 09/04/20 15:00 09/09/20 08:41 Clonidine 0.3 Mg Tab PO 0.3 mg TID ALANNA Administration Diphenhydramine HCl 25 mg 09/02/20 17:53 09/09/20 08:45 Diphenhydramine 50 Mg/Ml Vial IVP 25 mg Q6H PRN Administration Itching & Insomnia Duloxetine HCl 60 mg 09/05/20 09:00 09/09/20 08:43 Duloxetine 60 Mg Cap PO 60 mg DAILY ALANNA Administration Epoetin John-epbx 20,000 unit 09/02/20 09:00 09/09/20 08:48 Epoetin John-Epbx (Esrd) 10,000 Unit/Ml Vial SC 20,000 unit Q7D ALANNA Administration Gabapentin 100 mg 09/04/20 21:00 09/08/20 20:20 Gabapentin 100 Mg Cap PO 100 mg HS ALANNA Administration Hydralazine HCl 100 mg 09/04/20 21:00 09/09/20 08:42 Hydralazine 25 Mg Tab PO 100 mg TID ALANNA Administration Labetalol HCl 400 mg 09/08/20 09:00 09/09/20 08:41 Labetalol 100 Mg Tab PO 400 mg BID ALANNA Administration Morphine Sulfate 2 mg 09/01/20 17:51 09/09/20 08:45 Morphine 2 Mg/Ml Vial SLOW IVP 2 mg Q4H PRN Administration Severe Pain (7-10) Nifedipine 60 mg 09/07/20 09:00 09/09/20 08:43 Nifedipine Xl 60 Mg Tab PO 60 mg BID ALANNA Administration Ondansetron HCl 4 mg 09/01/20 16:35 09/06/20 03:16 Ondansetron Pf 4 Mg/2 Ml Vial IVP 4 mg Q6H PRN Administration Nausea/Vomiting Pantoprazole Sodium 40 mg 09/03/20 09:00 09/09/20 08:42 Pantoprazole 40 Mg Tab PO 40 mg DAILY ALANNA Administration Rifampin 300 mg 09/02/20 22:00 09/09/20 08:44 Rifampin 300 Mg Cap PO 300 mg 1000,2200 ALANNA Administration Sevelamer Carbonate 2,400 mg 09/02/20 08:00 09/09/20 12:36 Sevelamer Carbonate 800 Mg Tab PO Not Given TID-WM ALANNA - Exam General Appearance: awake alert Eye: anicteric sclera ENT: moist mucosa Neck: supple Heart: RRR Respiratory: CTAB Gastrointestinal: soft, non-tender Skin: no rashes Psychiatric: normal affect, normal behavior Hosp A/P - Plan -Assessment (1) MRSA bacteremia Code(s): R78.81 - BACTEREMIA; B95.62 - METHICILLIN RESIS STAPH INFCT CAUSING DISEASES CLASSD ELSWHR Status: Acute (2) Acute on chronic anemia Code(s): D64.9 - ANEMIA, UNSPECIFIED Status: Acute (3) ESRD (end stage renal disease) on dialysis Code(s): N18.6 - END STAGE RENAL DISEASE; Z99.2 - DEPENDENCE ON RENAL DIALYSIS Status: Chronic (4) Thrombocytopenia Code(s): D69.6 - THROMBOCYTOPENIA, UNSPECIFIED Status: Chronic - Plan Continue gentamicin/Rifampin/Vancomycin Antibiotic duration for 6 weeks OOB/ambulate Resume home BP meds Nephrology service following for maintenance dialysis. Transfuse as needed. Patient can be discharged once antibiotics are arranged.
[2020-09-09] MEDS: Amitriptyline HCl 100 MG TAB PO SCH (20:11)
[2020-09-09] MEDS: Gabapentin 100 MG CAP PO SCH (20:11)
[2020-09-10] MEDS: diphenhydrAMINE 50 MG/ML VIAL IVP PRN ×5 (02:16→21:01)
[2020-09-10] MEDS: Morphine 2 MG/ML VIAL SLOW IVP PRN ×5 (02:16→20:30)
[2020-09-10] MEDS: Sevelamer Carbonate 800 MG TAB PO SCH ×4 (08:27→16:51)
[2020-09-10] MEDS: cloNIDine 0.3 MG TAB PO SCH ×3 (08:27→20:29)
[2020-09-10] MEDS: hydrALAZINE 25 MG TAB PO SCH ×3 (08:27→20:29)
[2020-09-10] MEDS: DULoxetine 60 MG CAP PO SCH (08:28)
[2020-09-10] MEDS: Ascorbic Acid 500 mg Chewable Tablet PO SCH (08:28)
[2020-09-10] MEDS: Rifampin 300 MG CAP PO SCH ×2 (08:28→22:26)
[2020-09-10] MEDS: NIFEdipine XL 60 MG TAB PO SCH ×2 (08:28→20:29)
[2020-09-10] MEDS: Labetalol 100 MG TAB PO SCH ×2 (08:34→20:30)
[2020-09-10] MEDS: Bisacodyl 5 MG TAB PO PRN (08:35)
[2020-09-10] MEDS: Ondansetron PF 4 MG/2 ML Vial IVP PRN ×2 (08:35→21:02)
[2020-09-10] MEDS: hydrOXYzine 25 MG TAB PO PRN (11:47)
--- NOTE | 2020-09-10 12:22 | PDOC.HOSPP ---
- Subjective Encounter Date: 09/10/20 Encounter Time: 09:30 Subjective: Patient seen for follow-up regarding MRSA bacteremia. Complains of itching. - Objective Vital Signs & Weight: Vital Signs (12 hours) Temp Pulse Resp BP BP Pulse Ox 09/10/20 10:54 97.4 F L 86 14 155/92 H 96 09/10/20 08:34 95 179/107 H 09/10/20 08:28 95 179/108 H 09/10/20 08:27 95 179/108 H 96 09/10/20 08:00 98.8 F 95 18 178/107 H 96 09/10/20 07:20 98.8 F 95 18 178/107 H 96 Weight Weight 182 lb 15.739 oz I&O: 09/09/20 09/10/20 09/11/20 06:59 06:59 06:59 Intake Total 480 1074 237 Balance 480 1074 237 Result Diagrams: 09/08/20 08:18 09/06/20 09:25 Additional Labs: I reviewed patient's labs and [facility] Hospitalist ROS - Review of Systems Gastrointestinal: denies: nausea, vomiting, abdominal pain, diarrhea, constipation, melena Genitourinary: denies: dysuria (Itching), frequency, incontinence, hematuria, retention Skin: reports: other (Itching) - Medication Medications: Active Medications Generic Name Dose Route Start Last Admin Trade Name Freq PRN Reason Stop Dose Admin Acetaminophen/Codeine Phosphate 2 tab 09/04/20 17:19 09/09/20 11:38 Acetaminophen/Codeine 30-300mg Tablet PO 2 tab Q6H PRN Administration Moderate Pain (4-6) Al Hydroxide/Mg Hydroxide 30 ml 09/02/20 05:54 09/07/20 20:01 Mag-Al 1200 Mg/1200 Mg/30 Ml Udcup PO 30 ml Q6H PRN Administration Heartburn or Indigestion Alprazolam 0.25 mg 09/07/20 15:55 09/09/20 06:43 Alprazolam 0.25 Mg Tab PO 0.25 mg BIDPRN PRN Administration Anxiety Amitriptyline HCl 100 mg 09/04/20 21:00 09/09/20 20:11 Amitriptyline Hcl 100 Mg Tab PO 100 mg QPM ALANNA Administration Ascorbic Acid 1,000 mg 09/02/20 09:00 09/10/20 08:28 Ascorbic Acid 500 Mg Chewable Tablet PO Not Given DAILY ALANNA Bisacodyl 10 mg 09/06/20 23:15 09/10/20 08:35 Bisacodyl 5 Mg Tab PO 10 mg DAILYPRN PRN Administration Constipation Clonidine 0.3 mg 09/04/20 15:00 09/10/20 08:27 Clonidine 0.3 Mg Tab PO 0.3 mg TID ALANNA Administration Diphenhydramine HCl 25 mg 09/09/20 18:10 09/10/20 08:29 Diphenhydramine 50 Mg/Ml Vial IVP 25 mg Q4H PRN Administration Itching Duloxetine HCl 60 mg 09/05/20 09:00 09/10/20 08:28 Duloxetine 60 Mg Cap PO 60 mg DAILY ALANNA Administration Epoetin John-epbx 20,000 unit 09/02/20 09:00 09/09/20 08:48 Epoetin John-Epbx (Esrd) 10,000 Unit/Ml Vial SC 20,000 unit Q7D ALANNA Administration Gabapentin 100 mg 09/04/20 21:00 09/09/20 20:11 Gabapentin 100 Mg Cap PO 100 mg HS ALANNA Administration Hydralazine HCl 100 mg 09/04/20 21:00 09/10/20 08:27 Hydralazine 25 Mg Tab PO 100 mg TID ALANNA Administration Hydroxyzine HCl 25 mg 09/10/20 10:54 09/10/20 11:47 Hydroxyzine 25 Mg Tab PO 25 mg Q6H PRN Administration Itching Labetalol HCl 600 mg 09/09/20 21:00 09/10/20 08:34 Labetalol 100 Mg Tab PO 600 mg BID ALANNA Administration Morphine Sulfate 2 mg 09/01/20 17:51 09/10/20 08:29 Morphine 2 Mg/Ml Vial SLOW IVP 2 mg Q4H PRN Administration Severe Pain (7-10) Nifedipine 60 mg 09/07/20 09:00 09/10/20 08:28 Nifedipine Xl 60 Mg Tab PO 60 mg BID ALANNA Administration Ondansetron HCl 4 mg 09/01/20 16:35 09/10/20 08:35 Ondansetron Pf 4 Mg/2 Ml Vial IVP 4 mg Q6H PRN Administration Nausea/Vomiting Pantoprazole Sodium 40 mg 09/03/20 09:00 09/10/20 08:28 Pantoprazole 40 Mg Tab PO 40 mg DAILY ALANNA Administration Rifampin 300 mg 09/02/20 22:00 09/10/20 08:28 Rifampin 300 Mg Cap PO 300 mg 1000,2200 ALANNA Administration Senna/Docusate Sodium 2 tab 09/06/20 23:15 09/09/20 20:11 Senokot S 8.6-50 Mg Tab PO 2 tab BID PRN Administration Constipation Sevelamer Carbonate 2,400 mg 09/02/20 08:00 09/10/20 11:51 Sevelamer Carbonate 800 Mg Tab PO 2,400 mg TID-WM ALANNA Administration Sodium Chloride 10 ml 09/10/20 09:00 09/10/20 08:29 Flush - Normal Saline 10 Ml Syringe IVF 10 ml Q12HR ALANNA Administration - Exam General Appearance: awake alert Eye: anicteric sclera ENT: moist mucosa Neck: supple Heart: RRR Respiratory: CTAB Gastrointestinal: soft, non-tender Extremities: no edema Skin: no rashes Musculoskeletal: no muscle wasting Psychiatric: normal affect Hosp A/P - Plan -Assessment (1) MRSA bacteremia Code(s): R78.81 - BACTEREMIA; B95.62 - METHICILLIN RESIS STAPH INFCT CAUSING DISEASES CLASSD ELSWHR Status: Acute (2) Acute on chronic anemia Code(s): D64.9 - ANEMIA, UNSPECIFIED Status: Acute (3) ESRD (end stage renal disease) on dialysis Code(s): N18.6 - END STAGE RENAL DISEASE; Z99.2 - DEPENDENCE ON RENAL DIALYSIS Status: Chronic (4) Thrombocytopenia Code(s): D69.6 - THROMBOCYTOPENIA, UNSPECIFIED Status: Chronic - Plan Patient is on gentamicin/Rifampin/Vancomycin Antibiotic duration for 6 weeks OOB/ambulate Dialysis per nephrology service. Transfuse as needed. Patient can be discharged once antibiotics are arranged. Add Atarax to Benadryl.
--- NOTE | 2020-09-10 13:50 | PRG ---
DATE OF SERVICE: 09/10/2020 SUBJECTIVE: Patient was seen and examined at bedside and overnight events noted. Patient denies any shortness of breath or chest pain or palpitation. No history of nausea or vomiting or diarrhea or fever or chills or cramps. OBJECTIVE: GENERAL: This is a well-built male, in no apparent distress. VITAL SIGNS: Temperature 97.4. Heart rate 86. Respiratory rate 18. Blood pressure 155/92. HEENT: Atraumatic, normocephalic. Oral mucosa is moist. NECK: Supple. CARDIOVASCULAR: S1, S2 heard. Rate and rhythm regular. RESPIRATORY: Clear to auscultation. GASTROINTESTINAL: Abdomen is soft. MUSCULOSKELETAL: No tenderness. No edema. DERMATOLOGIC: No skin rash. NEUROLOGIC: Alert and awake and oriented x3. No focal neurologic deficits. Moving all the extremities. PSYCHIATRIC: Mood and affect normal. LABORATORY DATA: No labs done today. ASSESSMENT AND PLAN: 1. End-stage renal disease. Continue dialysis on Friday, Friday, and Friday. 2. Edema. 3. Hypertension. 4. Anemia of chronic disease. Recheck labs in the morning and continue dialysis. Job ID: [id number]
[2020-09-10] MEDS: Gabapentin 100 MG CAP PO SCH (20:28)
[2020-09-10] MEDS: Amitriptyline HCl 100 MG TAB PO SCH (20:30)
[2020-09-11] MEDS: diphenhydrAMINE 50 MG/ML VIAL IVP PRN ×6 (01:13→23:06)
[2020-09-11] MEDS: Morphine 2 MG/ML VIAL SLOW IVP PRN ×5 (01:13→23:06)
[2020-09-11] MEDS: Ondansetron PF 4 MG/2 ML Vial IVP PRN ×2 (05:29→23:06)
[2020-09-11 06:39] LABS: Anion Gap 19 mmol/L (10-20); BUN (Urea Nitrogen) 39 mg/dL (8.9-20.6); Calc. Creatinine Clearance 15 mL/min (70-130); Calcium 9.1 mg/dL (7.8-10.44); Carbon Dioxide 25 mmol/L (22-29); Chloride 95 mmol/L (98-107); Estimated GFR-MDRD 9; Glucose 81 mg/dL (70-105); Potassium 5.6 mmol/L (3.5-5.1); Sodium 133 mmol/L (136-145)
[2020-09-11 08:59] LABS: #Eosinphils 0.7 thou/uL (0.0-0.7); #Lymphocytes 1.1 thou/uL (1.20-3.40); #Monocytes 0.5 thou/uL (0.11-0.59); #Neutrophils 3.4 thou/uL (1.40-6.50); %Basophils 0.3 % (0.0-1.0); %Eosinophils 12.4 % (0.0-10.0); %Lymphocytes 19.3 % (21.0-51.0); %Monocytes 8.1 % (0.0-10.0); %Neutrophils 59.9 % (42.0-75.0); Hemoglobin 6.7 g/dL (14.0-18.0); Mean Corpuscular HGB CONC 32.4 g/dL (32.0-36.0); Mean Corpuscular Hemoglobin 31.4 pg (27.0-31.0); Mean Corpuscular Volume 96.8 fL (78.0-98.0); Mean Platelet Volume 9.7 fL (7.4-10.4); Platelet Count 97 thou/uL (130-400); RBC Distribution Width 17.5 % (11.5-14.5); Red Blood Cell (RBC) Count 2.13 mill/uL (4.70-6.10); White Blood Cell (WBC) Count 5.6 thou/uL (4.8-10.8)
[2020-09-11 09:26] LABS: Vancomycin, Random 13.1 ug/mL (See Comment)
[2020-09-11] MEDS: cloNIDine 0.3 MG TAB PO SCH ×3 (09:47→20:47)
[2020-09-11] MEDS: hydrALAZINE 25 MG TAB PO SCH ×3 (09:47→20:47)
[2020-09-11] MEDS: Sevelamer Carbonate 800 MG TAB PO SCH ×3 (09:47→18:13)
--- NOTE | 2020-09-11 10:44 | PRG ---
DATE OF SERVICE: 09/11/2020 SUBJECTIVE: A 25-year-old gentleman being seen for end-stage renal disease. The patient denied nausea, vomiting, or chest pain. PHYSICAL EXAMINATION: General: The patient is awake and alert. Vital Signs: Afebrile, pulse 75, breathing at 16, blood pressure 130/70. HEENT: Head normocephalic and atraumatic. Eyes intact, no ulcers. Nose intact, no ulcers. Ears intact, no ulcers. Neck: Supple. No JVD. Chest: Symmetrical and clear. Cardiovascular: Shows S1 and S2, no rub, no murmur. Gastrointestinal: Abdomen is soft, bowel sounds positive. Extremities: Show no edema or ulcers. Skin: Shows no rash or petechiae. Musculoskeletal: Shows no joint swelling or stiffness. Genitourinary: Shows no Pimentel or CVA tenderness. Neurologic: Motor intact. Cranial nerves intact. LABORATORY DATA: Labs reviewed. ASSESSMENT AND PLAN: Stage 6 chronic kidney disease, plan dialysis. Anemia, plan transfusion. Hypertension, stable. Medication based on GFR appropriate. Job ID: [id number]
[2020-09-11] MEDS: NIFEdipine XL 60 MG TAB PO SCH ×2 (14:09→20:47)
[2020-09-11] MEDS: Ascorbic Acid 500 mg Chewable Tablet PO SCH (14:11)
[2020-09-11] MEDS: DULoxetine 60 MG CAP PO SCH (14:12)
[2020-09-11] MEDS: Rifampin 300 MG CAP PO SCH ×2 (14:13→21:57)
[2020-09-11] MEDS: Labetalol 100 MG TAB PO SCH ×2 (14:13→20:47)
--- NOTE | 2020-09-11 14:49 | PDOC.HOSPP ---
- Subjective Encounter Date: 09/11/20 Encounter Time: 11:30 Subjective: Patient seen for follow-up for bacteremia. He denies any chest pain, shortness of breath, fevers or chills. - Objective Vital Signs & Weight: Vital Signs (12 hours) Temp Pulse Resp BP BP Pulse Ox 09/11/20 14:15 98.8 F 85 20 164/96 H 96 09/11/20 07:18 98.2 F 85 20 151/87 H 96 09/11/20 05:11 98.4 F 93 18 151/92 H 92 L Weight Weight 182 lb 15.739 oz I&O: 09/10/20 09/11/20 09/12/20 06:59 06:59 06:59 Intake Total 1074 477 Balance 1074 477 Result Diagrams: 09/11/20 08:00 09/11/20 05:44 Additional Labs: I reviewed patient's labs and [facility] Hospitalist ROS - Review of Systems Gastrointestinal: denies: nausea, vomiting, abdominal pain, diarrhea, constipation, melena, hematochezia Skin: denies: rash, lesions, suzanna, bruising - Medication Medications: Active Medications Generic Name Dose Route Start Last Admin Trade Name Freq PRN Reason Stop Dose Admin Acetaminophen/Codeine Phosphate 2 tab 09/04/20 17:19 09/09/20 11:38 Acetaminophen/Codeine 30-300mg Tablet PO 2 tab Q6H PRN Administration Moderate Pain (4-6) Al Hydroxide/Mg Hydroxide 30 ml 09/02/20 05:54 09/07/20 20:01 Mag-Al 1200 Mg/1200 Mg/30 Ml Udcup PO 30 ml Q6H PRN Administration Heartburn or Indigestion Alprazolam 0.25 mg 09/07/20 15:55 09/09/20 06:43 Alprazolam 0.25 Mg Tab PO 0.25 mg BIDPRN PRN Administration Anxiety Amitriptyline HCl 100 mg 09/04/20 21:00 09/10/20 20:30 Amitriptyline Hcl 100 Mg Tab PO 100 mg QPM ALANNA Administration Ascorbic Acid 1,000 mg 09/02/20 09:00 09/11/20 14:11 Ascorbic Acid 500 Mg Chewable Tablet PO Not Given DAILY ALANNA Bisacodyl 10 mg 09/06/20 23:15 09/10/20 08:35 Bisacodyl 5 Mg Tab PO 10 mg DAILYPRN PRN Administration Constipation Clonidine 0.3 mg 09/04/20 15:00 09/11/20 14:11 Clonidine 0.3 Mg Tab PO 0.3 mg TID ALANNA Administration Diphenhydramine HCl 25 mg 09/09/20 18:10 09/11/20 14:02 Diphenhydramine 50 Mg/Ml Vial IVP 25 mg Q4H PRN Administration Itching Duloxetine HCl 60 mg 09/05/20 09:00 09/11/20 14:12 Duloxetine 60 Mg Cap PO 60 mg DAILY ALANNA Administration Epoetin John-epbx 20,000 unit 09/02/20 09:00 09/09/20 08:48 Epoetin John-Epbx (Esrd) 10,000 Unit/Ml Vial SC 20,000 unit Q7D ALANNA Administration Gabapentin 100 mg 09/04/20 21:00 09/10/20 20:28 Gabapentin 100 Mg Cap PO 100 mg HS ALANNA Administration Hydralazine HCl 100 mg 09/04/20 21:00 09/11/20 14:10 Hydralazine 25 Mg Tab PO 100 mg TID ALANNA Administration Hydroxyzine HCl 25 mg 09/10/20 10:54 09/10/20 11:47 Hydroxyzine 25 Mg Tab PO 25 mg Q6H PRN Administration Itching Labetalol HCl 600 mg 09/09/20 21:00 09/11/20 14:13 Labetalol 100 Mg Tab PO 600 mg BID ALANNA Administration Morphine Sulfate 2 mg 09/01/20 17:51 09/11/20 14:02 Morphine 2 Mg/Ml Vial SLOW IVP 2 mg Q4H PRN Administration Severe Pain (7-10) Nifedipine 60 mg 09/07/20 09:00 09/11/20 14:09 Nifedipine Xl 60 Mg Tab PO 60 mg BID ALANNA Administration Ondansetron HCl 4 mg 09/01/20 16:35 09/11/20 05:29 Ondansetron Pf 4 Mg/2 Ml Vial IVP 4 mg Q6H PRN Administration Nausea/Vomiting Pantoprazole Sodium 40 mg 09/03/20 09:00 09/11/20 14:10 Pantoprazole 40 Mg Tab PO 40 mg DAILY ALANNA Administration Rifampin 300 mg 09/02/20 22:00 09/11/20 14:13 Rifampin 300 Mg Cap PO 300 mg 1000,2200 ALANNA Administration Senna/Docusate Sodium 2 tab 09/06/20 23:15 09/09/20 20:11 Senokot S 8.6-50 Mg Tab PO 2 tab BID PRN Administration Constipation Sevelamer Carbonate 2,400 mg 09/02/20 08:00 09/11/20 14:16 Sevelamer Carbonate 800 Mg Tab PO 2,400 mg TID-WM ALANNA Administration Sodium Chloride 10 ml 09/10/20 09:00 09/11/20 10:01 Flush - Normal Saline 10 Ml Syringe IVF 10 ml Q12HR ALANNA Administration Sodium Chloride 10 ml 09/10/20 08:15 09/11/20 14:04 Flush - Normal Saline 10 Ml Syringe IVF 10 ml PRN PRN Administration Saline Flush - Exam General Appearance: awake alert Eye: anicteric sclera ENT: moist mucosa Neck: supple Respiratory: CTAB Gastrointestinal: soft, non-tender Skin: no rashes Psychiatric: normal affect Hosp A/P - Plan -Assessment (1) MRSA bacteremia Code(s): R78.81 - BACTEREMIA; B95.62 - METHICILLIN RESIS STAPH INFCT CAUSING DISEASES CLASSD ELSWHR Status: Acute (2) Acute on chronic anemia Code(s): D64.9 - ANEMIA, UNSPECIFIED Status: Acute (3) ESRD (end stage renal disease) on dialysis Code(s): N18.6 - END STAGE RENAL DISEASE; Z99.2 - DEPENDENCE ON RENAL DIALYSIS Status: Chronic (4) Thrombocytopenia Code(s): D69.6 - THROMBOCYTOPENIA, UNSPECIFIED Status: Chronic - Plan Tinea gentamicin/Rifampin/Vancomycin Antibiotic duration for 6 weeks OOB/ambulate Nephrology following for dialysis. Transfuse as needed. Patient can be discharged once antibiotics are arranged. Continue Atarax and Benadryl.
--- NOTE | 2020-09-11 17:44 | PRG ---
DATE OF SERVICE: 09/11/2020 SUBJECTIVE: Mr. Martínez had a CT abdomen and chest. It basically showed anasarca and a large amount of ascites and some lung infiltrates, probably due to pulmonary edema, but no other findings of significance other than hepatosplenomegaly, most likely due to his chronic infection. He is receiving gentamicin, vancomycin, sliding scale, and rifampin for treatment of his endocarditis, and he is feeling better overall. Still not back to normal or at least back to his baseline status, but making progress. The pain has resolved pretty much, that abdominal pain that he was having before. He has no diarrhea. PHYSICAL EXAMINATION: VITAL SIGNS: He has been afebrile, BP 160/96, heart rate 85, respiratory rate 20, and O2 saturation 96. GENERAL: Chronically ill appearing, pleasant, oriented. He has a central line in the right IJ location. LUNGS: Symmetric air entry with faint basilar crackles. CARDIAC: S1 and S2 with a soft apex murmur. ABDOMEN: Soft with marked distention, but no tenderness. Positive fluid wave suggestive of ascites as expected. EXTREMITIES: He does not have edema in his lower extremities. LABORATORY DATA: White cell count is 5.6, hemoglobin 6.7, and platelets 97. Sodium 133 and creatinine 9.06. His glomerular basement membrane antibody was less than 7, so it is negative. Blood culture needs to be repeated from the when it was positive. We need to certify that he his bacteremia has resolved. 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 He already has had one week of gentamicin, so he needs another week, which he is getting only at dialysis, and after that, then will be on vancomycin and rifampin until the October 15 end date. May consider a large volume paracentesis to alleviate his discomfort due to abdominal distention from the ascitic fluid. Job ID: [id number]
[2020-09-11] MEDS: Amitriptyline HCl 100 MG TAB PO SCH (20:47)
[2020-09-11] MEDS: Gabapentin 100 MG CAP PO SCH (20:47)
[2020-09-12] MEDS: Morphine 2 MG/ML VIAL SLOW IVP PRN ×4 (03:36→20:38)
[2020-09-12] MEDS: diphenhydrAMINE 50 MG/ML VIAL IVP PRN ×4 (03:37→20:39)
[2020-09-12] MEDS: Sevelamer Carbonate 800 MG TAB PO SCH ×3 (08:11→16:48)
[2020-09-12] MEDS: Ascorbic Acid 500 mg Chewable Tablet PO SCH (08:12)
[2020-09-12] MEDS: hydrALAZINE 25 MG TAB PO SCH ×3 (08:12→20:45)
[2020-09-12] MEDS: NIFEdipine XL 60 MG TAB PO SCH (08:13)
[2020-09-12] MEDS: DULoxetine 60 MG CAP PO SCH (08:13)
[2020-09-12] MEDS: cloNIDine 0.3 MG TAB PO SCH ×3 (08:13→20:46)
[2020-09-12] MEDS: Rifampin 300 MG CAP PO SCH ×2 (10:07→20:46)
--- NOTE | 2020-09-12 10:19 | PRG ---
DATE OF SERVICE: 09/12/2020 SUBJECTIVE: A 25-year-old gentleman, being seen for end-stage renal disease. The patient denied any nausea, vomiting, or chest pain. PHYSICAL EXAMINATION: GENERAL: The patient is awake and alert. VITAL SIGNS: Afebrile, pulse 86, breathing at 16, blood pressure 157/91. HEENT: Head normocephalic and atraumatic. Eyes intact, no ulcers. Nose intact, no ulcers. Ears intact, no ulcers. NECK: Supple. No JVD. CHEST: Symmetrical and clear. CARDIOVASCULAR: Shows S1 and S2, no rub, no murmur. GASTROINTESTINAL: Abdomen is soft, bowel sounds positive. EXTREMITIES: Show no edema or ulcers. SKIN: Shows no rash or petechiae. MUSCULOSKELETAL: Shows no joint swelling or stiffness. GENITOURINARY: Shows no Pimentel or CVA tenderness. NEUROLOGIC: Motor intact. Cranial nerves intact. LABORATORY DATA: Hemoglobin is pending. ASSESSMENT AND PLAN: 1. Stage 6 chronic kidney disease, continue hemodialysis. 2. Hypertension, stable. 3. Hyperkalemia. Recheck labs today. Job ID: [id number]
[2020-09-12] MEDS ORDERED: Lidocaine 1% PF 5 ML VIAL ONE (11:08)
--- NOTE | 2020-09-12 11:51 | ULT ---
Sonographic guided paracentesis HISTORY: Symptomatic ascites. FINDINGS: After explaining the procedure and answering all questions, sonographic survey showed a lar ge amount of free fluid throughout the abdomen. Sterile technique, buffered local anesthesia, sonographic guidance, and a right lateral approach were used to carefully advance a 19-gauge Yueh needle and catheter into the free fluid. Catheter was left to drain a total volume of 4.0 L dark brown liquid. Patient was limited to 4 L due to the fact t hat he has not had high volume removal in the past to document tolerance. Catheter was removed with moderate amount of free fluid remaining. Patient tolerated the procedure we ll and was returned in improved condition. IMPRESSION : Technically successful sonographic guided paracentesis. 4.0 L.
[2020-09-12] MEDS: Labetalol 100 MG TAB PO SCH ×2 (11:57→21:46)
--- NOTE | 2020-09-12 13:24 | PDOC.HOSPP ---
- Subjective Encounter Date: 09/12/20 Encounter Time: 10:20 Subjective: Patient seen for follow-up regarding MRSA bacteremia. Denies any chest pain or shortness of breath. - Objective Vital Signs & Weight: Vital Signs (12 hours) Temp Pulse Resp BP BP BP BP 09/12/20 12:34 163/100 H 09/12/20 12:30 163/100 H 09/12/20 11:57 107 H 189/115 H 09/12/20 11:52 98.5 F 107 H 20 189/115 H 09/12/20 10:15 09/12/20 08:25 98.4 F 89 20 168/109 H 09/12/20 08:13 86 157/91 H 09/12/20 08:12 86 09/12/20 04:00 98.2 F 83 20 157/108 H Pulse Ox 09/12/20 12:34 09/12/20 12:30 09/12/20 11:57 09/12/20 11:52 92 L 09/12/20 10:15 91 L 09/12/20 08:25 93 L 09/12/20 08:13 09/12/20 08:12 09/12/20 04:00 97 Weight Admit Weight 182 lb 15.68 oz Weight 182 lb 15.739 oz I&O: 09/11/20 09/12/20 09/13/20 06:59 06:59 06:59 Intake Total 477 240 Output Total 4300 Balance 477 -4300 240 Result Diagrams: 09/11/20 08:00 09/11/20 05:44 Additional Labs: I reviewed patient's labs and [facility] Hospitalist ROS - Review of Systems Gastrointestinal: denies: nausea, vomiting, abdominal pain, diarrhea, constipation, melena, hematochezia, other Neurological: denies: weakness, numbness, incoordination, change in speech, confusion, seizures - Medication Medications: Active Medications Generic Name Dose Route Start Last Admin Trade Name Freq PRN Reason Stop Dose Admin Acetaminophen/Codeine Phosphate 2 tab 09/04/20 17:19 09/09/20 11:38 Acetaminophen/Codeine 30-300mg Tablet PO 2 tab Q6H PRN Administration Moderate Pain (4-6) Al Hydroxide/Mg Hydroxide 30 ml 09/02/20 05:54 10/15/20 20:01 Mag-Al 1200 Mg/1200 Mg/30 Ml Udcup PO 30 ml Q6H PRN Administration Heartburn or Indigestion Alprazolam 0.25 mg 09/07/20 15:55 09/09/20 06:43 Alprazolam 0.25 Mg Tab PO 0.25 mg BIDPRN PRN Administration Anxiety Amitriptyline HCl 100 mg 09/04/20 21:00 09/11/20 20:47 Amitriptyline Hcl 100 Mg Tab PO 100 mg QPM ALANNA Administration Ascorbic Acid 1,000 mg 09/02/20 09:00 09/12/20 08:12 Ascorbic Acid 500 Mg Chewable Tablet PO 1,000 mg DAILY ALANNA Administration Bisacodyl 10 mg 09/06/20 23:15 09/10/20 08:35 Bisacodyl 5 Mg Tab PO 10 mg DAILYPRN PRN Administration Constipation Clonidine 0.3 mg 09/04/20 15:00 09/12/20 08:13 Clonidine 0.3 Mg Tab PO 0.3 mg TID ALANNA Administration Diphenhydramine HCl 25 mg 09/04/20 17:18 09/12/20 08:13 Diphenhydramine 25 Mg Cap PO 25 mg Q6H PRN Administration Itching & Insomnia Diphenhydramine HCl 25 mg 09/09/20 18:10 09/12/20 12:03 Diphenhydramine 50 Mg/Ml Vial IVP 25 mg Q4H PRN Administration Itching Duloxetine HCl 60 mg 09/05/20 09:00 09/12/20 08:13 Duloxetine 60 Mg Cap PO 60 mg DAILY ALANNA Administration Epoetin John-epbx 20,000 unit 09/02/20 09:00 09/09/20 08:48 Epoetin John-Epbx (Esrd) 10,000 Unit/Ml Vial SC 20,000 unit Q7D ALANNA Administration Gabapentin 100 mg 09/04/20 21:00 09/11/20 20:47 Gabapentin 100 Mg Cap PO 100 mg HS ALANNA Administration Hydralazine HCl 100 mg 09/04/20 21:00 09/12/20 08:12 Hydralazine 25 Mg Tab PO 100 mg TID ALANNA Administration Hydroxyzine HCl 25 mg 09/10/20 10:54 09/10/20 11:47 Hydroxyzine 25 Mg Tab PO 25 mg Q6H PRN Administration Itching Labetalol HCl 600 mg 09/09/20 21:00 09/12/20 11:57 Labetalol 100 Mg Tab PO 600 mg BID ALANNA Administration Morphine Sulfate 2 mg 09/11/20 18:55 09/12/20 10:28 Morphine 2 Mg/Ml Vial SLOW IVP 2 mg Q4H PRN Administration Severe Pain (7-10) Ondansetron HCl 4 mg 09/01/20 16:35 09/11/20 23:06 Ondansetron Pf 4 Mg/2 Ml Vial IVP 4 mg Q6H PRN Administration Nausea/Vomiting Pantoprazole Sodium 40 mg 09/03/20 09:00 09/12/20 08:13 Pantoprazole 40 Mg Tab PO 40 mg DAILY ALANNA Administration Rifampin 300 mg 09/02/20 22:00 09/12/20 10:07 Rifampin 300 Mg Cap PO 300 mg 1000,2200 ALANNA Administration Senna/Docusate Sodium 2 tab 09/06/20 23:15 09/09/20 20:11 Senokot S 8.6-50 Mg Tab PO 2 tab BID PRN Administration Constipation Sevelamer Carbonate 2,400 mg 09/02/20 08:00 09/12/20 11:56 Sevelamer Carbonate 800 Mg Tab PO 2,400 mg TID-WM ALANNA Administration Sodium Chloride 10 ml 09/10/20 09:00 09/12/20 10:15 Flush - Normal Saline 10 Ml Syringe IVF Not Given Q12HR ALANNA Sodium Chloride 10 ml 09/10/20 08:15 09/11/20 21:57 Flush - Normal Saline 10 Ml Syringe IVF 10 ml PRN PRN Administration Saline Flush - Exam General Appearance: awake alert Neck: supple Heart: RRR Respiratory: CTAB Gastrointestinal: soft, non-tender Neurological: cranial nerve grossly intact Psychiatric: normal affect, normal behavior Hosp A/P - Plan -Assessment (1) MRSA bacteremia Code(s): R78.81 - BACTEREMIA; B95.62 - METHICILLIN RESIS STAPH INFCT CAUSING DISEASES CLASSD ELSWHR Status: Acute (2) Acute on chronic anemia Code(s): D64.9 - ANEMIA, UNSPECIFIED Status: Acute (3) ESRD (end stage renal disease) on dialysis Code(s): N18.6 - END STAGE RENAL DISEASE; Z99.2 - DEPENDENCE ON RENAL DIALYSIS Status: Chronic (4) Thrombocytopenia Code(s): D69.6 - THROMBOCYTOPENIA, UNSPECIFIED Status: Chronic - Plan Continue gentamicin/Rifampin/Vancomycin Appreciate ID service input. OOB/ambulate Maintenance dialysis per nephrology service. Transfuse as needed. Patient can be discharged once antibiotics are arranged. Continue Atarax and Benadryl. Patient to have ultrasound-guided paracentesis.
[2020-09-12] MEDS ORDERED: NIFEdipine XL 30 MG TAB PO SCH (13:30)
[2020-09-12 20:05] LABS: #Basophils 0.1 thou/uL (0.0-0.2); #Eosinphils 0.6 thou/uL (0.0-0.7); #Monocytes 0.5 thou/uL (0.11-0.59); #Neutrophils 3.3 thou/uL (1.40-6.50); %Basophils 1.3 % (0.0-1.0); %Eosinophils 11.6 % (0.0-10.0); %Lymphocytes 17.6 % (21.0-51.0); %Monocytes 8.6 % (0.0-10.0); Hemoglobin 7.4 g/dL (14.0-18.0); Mean Corpuscular HGB CONC 33.7 g/dL (32.0-36.0); Mean Corpuscular Hemoglobin 32.2 pg (27.0-31.0); Mean Corpuscular Volume 95.3 fL (78.0-98.0); Mean Platelet Volume 9.6 fL (7.4-10.4); Platelet Count 83 thou/uL (130-400); RBC Distribution Width 17.3 % (11.5-14.5); White Blood Cell (WBC) Count 5.4 thou/uL (4.8-10.8)
[2020-09-12 20:20] LABS: ALT (SGPT) Less than 7 U/L (8-55); AST (SGOT) 10 U/L (5-34); Albumin 3.2 g/dL (3.5-5.0); Alkaline Phosphatase 149 U/L (40-110); Anion Gap 16 mmol/L (10-20); BUN (Urea Nitrogen) 32 mg/dL (8.9-20.6); Bilirubin, Total 0.9 mg/dL (0.2-1.2); Calc. Creatinine Clearance 19 mL/min (70-130); Calcium 8.8 mg/dL (7.8-10.44); Carbon Dioxide 27 mmol/L (22-29); Chloride 98 mmol/L (98-107); Estimated GFR-MDRD 12; Glucose 127 mg/dL (70-105); Potassium 5.2 mmol/L (3.5-5.1); Protein, Total 7.2 g/dL (6.0-8.3); Sodium 136 mmol/L (136-145)
[2020-09-12] MEDS: NIFEdipine XL 90 MG TAB PO SCH (20:46)
[2020-09-12] MEDS: Gabapentin 100 MG CAP PO SCH (20:46)
[2020-09-12] MEDS: Amitriptyline HCl 100 MG TAB PO SCH (20:46)
[2020-09-12] MEDS: hydrOXYzine 25 MG TAB PO PRN (21:54)
[2020-09-13] MEDS: Morphine 2 MG/ML VIAL SLOW IVP PRN ×5 (00:25→18:31)
[2020-09-13] MEDS: diphenhydrAMINE 50 MG/ML VIAL IVP PRN ×6 (00:26→23:15)
[2020-09-13 08:21] LABS: Troponin I 0.025 ng/mL (< 0.028)
--- NOTE | 2020-09-13 08:43 | PRG ---
DATE OF SERVICE: 09/13/2020 SUBJECTIVE: A 25-year-old male being seen for end-stage renal disease. The patient denies any nausea, vomiting, or chest pain. PHYSICAL EXAMINATION: GENERAL: The patient is awake and alert. VITAL SIGNS: Afebrile, pulse 75, breathing 16, blood pressure 130/70. HEENT: Head normocephalic and atraumatic. Eyes intact, no ulcers. Nose intact, no ulcers. Ears intact, no ulcers. NECK: Supple. No JVD. CHEST: Symmetrical and clear. CARDIOVASCULAR: Shows S1 and S2, no rub, no murmur. GASTROINTESTINAL: Abdomen is soft, bowel sounds positive. EXTREMITIES: Show no edema or ulcers. SKIN: Shows no rash or petechiae. MUSCULOSKELETAL: Shows no joint swelling or stiffness. GENITOURINARY: Shows no Pimentel or CVA tenderness. NEUROLOGIC: Motor intact. Cranial nerves intact. LABORATORY DATA: Reviewed. ASSESSMENT AND PLAN: Stage 6 chronic kidney disease. Continue hemodialysis. Hypertension, stable. Medication based on GFR appropriate. Infectious Disease management per primary team. Job ID: [id number]
[2020-09-13] MEDS: NIFEdipine XL 90 MG TAB PO SCH ×2 (08:57→21:27)
[2020-09-13] MEDS: DULoxetine 60 MG CAP PO SCH (08:59)
[2020-09-13] MEDS: hydrALAZINE 25 MG TAB PO SCH ×3 (08:59→21:26)
[2020-09-13] MEDS: Labetalol 100 MG TAB PO SCH ×2 (09:00→21:38)
[2020-09-13] MEDS: Sevelamer Carbonate 800 MG TAB PO SCH ×3 (09:01→18:25)
[2020-09-13] MEDS: cloNIDine 0.3 MG TAB PO SCH ×3 (09:01→21:27)
[2020-09-13] MEDS: Ascorbic Acid 500 mg Chewable Tablet PO SCH (13:26)
[2020-09-13] MEDS ORDERED: EPOETIN ALFA-EPBX (ESRD) 10,000 UNIT/ML VIAL IVP SCH (15:30)
[2020-09-13] MEDS: Gentamicin Sulfate 100 MG in Premix Bag 1 BAG IVPB SCH (16:11)
--- NOTE | 2020-09-13 17:23 | EKG ---
Test Reason : C/O CHEST PAIN Blood Pressure : / mmHG Vent. Rate : 091 BPM Atrial Rate : 091 BPM P-R Int : 184 ms QRS Dur : 096 ms QT Int : 382 ms P-R-T Axes : 059 069 040 degrees QTc Int : 469 ms Normal sinus rhythm Normal ECG When compared with ECG of 05-SEP-2020 18:55, No significant change was found Confirmed by KARLO RODRIGUEZ (2) on 09/13/2020 5:23:04 PM Referred By: LEWIS Confirmed By:KARLO RODRIGUEZ
--- NOTE | 2020-09-13 19:11 | PDOC.HOSPP ---
- Subjective Encounter Date: 09/13/20 Encounter Time: 11:40 Subjective: Patient seen for follow-up for bacteremia. Reports right-sided chest pain earlier. Denies fevers or chills. - Objective Vital Signs & Weight: Vital Signs (12 hours) Temp Pulse Resp BP BP Pulse Ox 09/13/20 18:25 81 152/92 H 09/13/20 17:00 152/92 H 09/13/20 11:04 98.2 F 90 16 167/98 H 98 09/13/20 09:01 158/97 H 09/13/20 09:00 88 158/97 H 09/13/20 08:59 88 158/97 H 09/13/20 08:57 88 158/97 H 09/13/20 08:00 93 L Weight Admit Weight 182 lb 15.68 oz Weight 182 lb 15.739 oz I&O: 09/12/20 09/13/20 09/14/20 06:59 06:59 06:59 Intake Total 360 0 Output Total 4300 Balance -4300 360 0 Result Diagrams: 09/12/20 19:54 09/12/20 19:54 Additional Labs: Labs and MAR reviewed by ct Hospitalist ROS - Review of Systems Cardiovascular: reports: chest pain. denies: palpitations, orthopnea, paroxysmal noc. dyspnea, edema, light headedness Gastrointestinal: denies: nausea, vomiting, abdominal pain, diarrhea, constipation, melena, hematochezia - Medication Medications: Active Medications Generic Name Dose Route Start Last Admin Trade Name Freq PRN Reason Stop Dose Admin Acetaminophen/Codeine Phosphate 2 tab 09/04/20 17:19 09/09/20 11:38 Acetaminophen/Codeine 30-300mg Tablet PO 2 tab Q6H PRN Administration Moderate Pain (4-6) Al Hydroxide/Mg Hydroxide 30 ml 09/02/20 05:54 09/07/20 20:01 Mag-Al 1200 Mg/1200 Mg/30 Ml Udcup PO 30 ml Q6H PRN Administration Heartburn or Indigestion Alprazolam 0.25 mg 09/07/20 15:55 09/09/20 06:43 Alprazolam 0.25 Mg Tab PO 0.25 mg BIDPRN PRN Administration Anxiety Amitriptyline HCl 100 mg 09/04/20 21:00 09/12/20 20:46 Amitriptyline Hcl 100 Mg Tab PO 100 mg QPM ALANNA Administration Ascorbic Acid 1,000 mg 09/02/20 09:00 09/13/20 13:26 Ascorbic Acid 500 Mg Chewable Tablet PO Not Given DAILY ALANNA Bisacodyl 10 mg 09/06/20 23:15 09/10/20 08:35 Bisacodyl 5 Mg Tab PO 10 mg DAILYPRN PRN Administration Constipation Clonidine 0.3 mg 09/04/20 15:00 09/13/20 17:00 Clonidine 0.3 Mg Tab PO Not Given TID ALANNA Diphenhydramine HCl 25 mg 09/04/20 17:18 09/12/20 08:13 Diphenhydramine 25 Mg Cap PO 25 mg Q6H PRN Administration Itching & Insomnia Diphenhydramine HCl 25 mg 09/09/20 18:10 09/13/20 18:26 Diphenhydramine 50 Mg/Ml Vial IVP 25 mg Q4H PRN Administration Itching Duloxetine HCl 60 mg 09/05/20 09:00 09/13/20 08:59 Duloxetine 60 Mg Cap PO 60 mg DAILY ALANNA Administration Epoetin John-epbx 20,000 unit 09/02/20 09:00 09/09/20 08:48 Epoetin John-Epbx (Esrd) 10,000 Unit/Ml Vial SC 20,000 unit Q7D ALANNA Administration Gabapentin 100 mg 09/04/20 21:00 09/12/20 20:46 Gabapentin 100 Mg Cap PO 100 mg HS ALANNA Administration Hydralazine HCl 100 mg 09/04/20 21:00 09/13/20 18:25 Hydralazine 25 Mg Tab PO 100 mg TID ALANNA Administration Hydroxyzine HCl 25 mg 09/10/20 10:54 09/12/20 21:54 Hydroxyzine 25 Mg Tab PO 25 mg Q6H PRN Administration Itching Gentamicin Sulfate 100 mg/ 100 mls @ 100 mls/hr 09/05/20 17:15 09/13/20 16:11 Device IVPB 100 mls WILLCALL ALANNA Administration Labetalol HCl 600 mg 09/09/20 21:00 09/13/20 09:00 Labetalol 100 Mg Tab PO 600 mg BID ALANNA Administration Morphine Sulfate 2 mg 09/11/20 18:55 09/13/20 18:31 Morphine 2 Mg/Ml Vial SLOW IVP 2 mg Q4H PRN Administration Severe Pain (7-10) Nifedipine 90 mg 09/12/20 21:00 09/13/20 08:57 Nifedipine Xl 90 Mg Tab PO 90 mg BID ALANNA Administration Ondansetron HCl 4 mg 09/01/20 16:35 09/11/20 23:06 Ondansetron Pf 4 Mg/2 Ml Vial IVP 4 mg Q6H PRN Administration Nausea/Vomiting Pantoprazole Sodium 40 mg 09/03/20 09:00 09/13/20 09:20 Pantoprazole 40 Mg Tab PO 40 mg DAILY ALANNA Administration Senna/Docusate Sodium 2 tab 09/06/20 23:15 09/09/20 20:11 Senokot S 8.6-50 Mg Tab PO 2 tab BID PRN Administration Constipation Sevelamer Carbonate 2,400 mg 09/02/20 08:00 09/13/20 18:25 Sevelamer Carbonate 800 Mg Tab PO 2,400 mg TID-WM ALANNA Administration Sodium Chloride 10 ml 09/10/20 09:00 09/13/20 18:39 Flush - Normal Saline 10 Ml Syringe IVF 10 ml Q12HR ALANNA Administration Sodium Chloride 10 ml 09/10/20 08:15 09/11/20 21:57 Flush - Normal Saline 10 Ml Syringe IVF 10 ml PRN PRN Administration Saline Flush - Exam General Appearance: awake alert Eye: anicteric sclera ENT: moist mucosa Neck: supple Heart: RRR Respiratory: CTAB Gastrointestinal: soft, non-tender Musculoskeletal - other findings: Reproducible right chest wall tenderness. Psychiatric: normal affect Hosp A/P - Plan -Assessment (1) MRSA bacteremia Code(s): R78.81 - BACTEREMIA; B95.62 - METHICILLIN RESIS STAPH INFCT CAUSING DISEASES CLASSD ELSWHR Status: Acute (2) Acute on chronic anemia Code(s): D64.9 - ANEMIA, UNSPECIFIED Status: Acute (3) ESRD (end stage renal disease) on dialysis Code(s): N18.6 - END STAGE RENAL DISEASE; Z99.2 - DEPENDENCE ON RENAL DIALYSIS Status: Chronic (4) Thrombocytopenia Code(s): D69.6 - THROMBOCYTOPENIA, UNSPECIFIED Status: Chronic - Plan Chest pain likely secondary to musculoskeletal etiology, EKG unremarkable, first troponin normal. D-dimer. Patient is on gentamicin/Rifampin/Vancomycin OOB/ambulate Maintenance dialysis per nephrology service. Transfuse as needed.
[2020-09-13] MEDS: Ondansetron PF 4 MG/2 ML Vial IVP PRN (20:36)
[2020-09-13] MEDS: Gabapentin 100 MG CAP PO SCH (21:27)
[2020-09-13] MEDS: Amitriptyline HCl 100 MG TAB PO SCH (21:27)
[2020-09-13] MEDS: Morphine 4 MG/ML VIAL SLOW IVP PRN (23:14)
[2020-09-14] MEDS: Morphine 4 MG/ML VIAL SLOW IVP PRN ×5 (03:25→21:27)
[2020-09-14] MEDS: diphenhydrAMINE 50 MG/ML VIAL IVP PRN ×5 (03:25→21:28)
--- NOTE | 2020-09-14 03:30 | PDOC.EVN ---
Event Note - Event Note Event Note: Patient with d-dimer ordered due to chest pain. It was elevated at >20. CTA ordered with plans to have him undergo dialysis in the AM. Multiple attempts through the night to obtain IV access with 20G needle, per radiology request. He has a 22G in place which they state is too small for IV contrast. Venous doppler ordered, awaiting report. If DVT present will start anticoagulation with heparin. PICC line to be placed in the AM.
[2020-09-14 06:15] LABS: #Basophils 0.1 thou/uL (0.0-0.2); #Eosinphils 0.6 thou/uL (0.0-0.7); #Lymphocytes 1.1 thou/uL (1.20-3.40); #Monocytes 0.6 thou/uL (0.11-0.59); #Neutrophils 3.1 thou/uL (1.40-6.50); %Basophils 1.3 % (0.0-1.0); %Eosinophils 11.2 % (0.0-10.0); %Lymphocytes 19.9 % (21.0-51.0); %Monocytes 10.3 % (0.0-10.0); %Neutrophils 57.3 % (42.0-75.0); Hemoglobin 8.5 g/dL (14.0-18.0); Mean Corpuscular HGB CONC 32.3 g/dL (32.0-36.0); Mean Corpuscular Hemoglobin 30.8 pg (27.0-31.0); Mean Corpuscular Volume 95.6 fL (78.0-98.0); Mean Platelet Volume 9.3 fL (7.4-10.4); Platelet Count 98 thou/uL (130-400); RBC Distribution Width 16.9 % (11.5-14.5); Red Blood Cell (RBC) Count 2.75 mill/uL (4.70-6.10); White Blood Cell (WBC) Count 5.4 thou/uL (4.8-10.8)
[2020-09-14 06:31] LABS: Anion Gap 15 mmol/L (10-20); BUN (Urea Nitrogen) 29 mg/dL (8.9-20.6); Calc. Creatinine Clearance 24 mL/min (70-130); Calcium 8.7 mg/dL (7.8-10.44); Carbon Dioxide 29 mmol/L (22-29); Chloride 96 mmol/L (98-107); Estimated GFR-MDRD 15; Glucose 106 mg/dL (70-105); Potassium 4.8 mmol/L (3.5-5.1); Sodium 135 mmol/L (136-145)
--- NOTE | 2020-09-14 06:41 | ULT ---
BILATERAL LOWER EXTREMITY DOPPLER VENOUS ULTRASOUND: Date: 09/13/2020 INDICATION: Concern for deep venous thrombosis within both lower extremities with bilateral leg pain. TECHNIQUE: Vera scale, color Doppler, and vascular duplex with spectral analysis was performed of the deep venou s structures of the bilateral lower extremities. The common femoral vein, superficial femoral vein, p roximal greater saphenous vein, proximal greater profunda vein, popliteal, and posterior tibial veins were assessed. FINDINGS: Normal compression, flow, and augmentation was seen within the deep venous structures of both lower e xtremities. IMPRESSION: No evidence of deep venous thrombosis within both lower extremities. POS: BH
[2020-09-14] MEDS ORDERED: Heparin 10,000 UNITS/ 10 ML VIAL SLOW IVP SCH (07:30)
[2020-09-14] MEDS ORDERED: Heparin 25,000 units/D5W 500 ML IVPB SCH (07:30)
[2020-09-14] MEDS: cloNIDine 0.3 MG TAB PO SCH ×3 (09:05→21:30)
[2020-09-14] MEDS: hydrALAZINE 25 MG TAB PO SCH ×3 (09:07→21:29)
[2020-09-14] MEDS: Ascorbic Acid 500 mg Chewable Tablet PO SCH (09:07)
[2020-09-14] MEDS: Sevelamer Carbonate 800 MG TAB PO SCH ×3 (09:07→17:30)
[2020-09-14] MEDS: DULoxetine 60 MG CAP PO SCH (09:08)
[2020-09-14] MEDS: NIFEdipine XL 90 MG TAB PO SCH ×2 (09:08→21:30)
[2020-09-14 09:29] LABS: Hemoglobin 9.4 g/dL (14.0-18.0); Platelet Count 119 thou/uL (130-400)
[2020-09-14] MEDS: Ondansetron PF 4 MG/2 ML Vial IVP PRN (09:46)
--- NOTE | 2020-09-14 11:21 | PRG ---
DATE OF SERVICE: 09/14/2020 SUBJECTIVE: A 25-year-old male being seen for end-stage renal disease. The patient denies any nausea, vomiting, or chest pain. PHYSICAL EXAMINATION: General: The patient is awake and alert. Vital Signs: Afebrile, pulse 75, breathing at 16, blood pressure 131/84. HEENT: Head normocephalic and atraumatic. Eyes intact, no ulcers. Nose intact, no ulcers. Ears intact, no ulcers. Neck: Supple. No JVD. Chest: Symmetrical and clear. Cardiovascular: Shows S1 and S2, no rub, no murmur. Gastrointestinal: Abdomen is soft, bowel sounds positive. Extremities: Show no edema or ulcers. Skin: Shows no rash or petechiae. Musculoskeletal: Shows no joint swelling or stiffness. Genitourinary: Shows no Pimentel or CVA tenderness. Neurologic: Motor intact. Cranial nerves intact. LABORATORY DATA: Labs show hemoglobin 9.4. ASSESSMENT AND PLAN: 1. Stage 6 chronic kidney disease. Continue hemodialysis. 2. Hypertension, stable. 3. Anemia, stable. 4. Medication based on GFR appropriate. Job ID: [id number]
--- NOTE | 2020-09-14 11:58 | SPC ---
Left upper extremity PICC placement sonographic guided HISTORY: MRSA infection. FINDINGS: After explaining the procedure and answering all questions, sonographic interrogation of th e left upper arm shows poor flow within the fistula. Brachial artery is widely patent. Brachial vein is large and patent. Sterile technique, buffered local anesthesia, sonographic guidance, and a 22-gauge needle were used t o carefully access the left brachial vein. Guidewire initially met with some resistance and difficulty in passing at the level of the axillary vein. Small amount of contrast was carefully injec lou to confirm patency of the vein. Guidewire was carefully manipulated into the subclavian vein and superior vena cava. Standard technique was then used to place the tip of a 5 [place] single lumen PICC so that the tip lies at the level of the cavoatrial junction. Catheter was flushed and secured externally. Patient tolerated procedure well and was returned in unc hanged condition. IMPRESSION : Left upper extremity PICC is ready for use.
--- NOTE | 2020-09-14 12:16 | CT ---
CT ANGIOGRAM OF THE CHEST: HISTORY: Chest pain. Elevated D-dimer. Shortness of breath. COMPARISON: None. COMPARISON: 09/07/2020, 09/01/2020. TECHNIQUE: CT angiogram of the chest is performed in the axial plane. Three-dimensional reformatted images are submitted for interpretation. FINDINGS: There does appear to be diffuse edema involving the soft tissues. There is prominent enhancement of the vasculature along the right upper extremity. Correlate for possible fistula. No mediastinal mass or hematoma. There is stranding of the presacral fat. There is increased soft tissue density in the subcarinal region which may represent edema or lymphadenopathy. Mild fullness of the left and right infrahilar region is also noted. Normal heart size. No significant pericardial fluid. There is a prosthetic mitral valve. Visualized aorta has a normal caliber. No periaortic fat stranding. Subdiaphragmatic structures demonstrate cardiomegaly and splenomegaly. There are atrophic left and r ight kidneys. There is diffuse sclerosis of the osseous structures, compatible with renal osteodystrophy. Trachea and central bronchi are patent. There is diffuse ground-glass opacification likely due to ed mala. Linear densities in the left and right lower lobe likely represent scar or atelectasis. No raven picious consolidation or masses. No pleural effusion or pneumothorax. Adequate contrast opacification of the pulmonary arterial system to the level of the segmental arteri es. No filling defect to suggest thromboembolism. Central pulmonary arteries are upper normal in size. Correlate for possible pulmonary artery hyperte nsion. IMPRESSION: 1. No evidence of pulmonary artery embolism to the level of the segmental arteries. 2. Correlate for pulmonary artery hypertension. 3. Diffuse ground-glass opacities. Correlate for edema or infiltrate, such as COVID. 4. Increased soft tissue density in the subcarinal region which may represent edema. The possibilit y of lymphadenopathy cannot be entirely excluded. 5. Abnormal attenuation of contrast in the right upper extremity, presumed to be due to a right uppe r extremity fistulogram. Correlate clinically. POS: LO
[2020-09-14] MEDS: Labetalol 100 MG TAB PO SCH ×2 (12:56→21:28)
[2020-09-14] MEDS ORDERED: Iopamidol 370 76% 100 ML VIAL ONE (14:58)
--- NOTE | 2020-09-14 15:46 | PDOC.HOSPP ---
- Subjective Encounter Date: 09/14/20 Encounter Time: 10:40 Subjective: Patient seen for follow-up regarding bacteremia. Feels better today. - Objective Vital Signs & Weight: Vital Signs (12 hours) Temp Pulse Resp BP BP BP Pulse Ox 09/14/20 09:09 95 09/14/20 09:05 165/99 H 09/14/20 07:08 98.3 F 94 16 159/96 H 95 09/14/20 04:00 98.7 F 87 18 131/84 92 L Weight Admit Weight 182 lb 15.68 oz Weight 182 lb 15.739 oz I&O: 09/13/20 09/14/20 09/15/20 06:59 06:59 06:59 Intake Total 360 0 Balance 360 0 Result Diagrams: 09/14/20 09:06 09/14/20 05:52 Additional Labs: I reviewed patient's labs and MAR Hospitalist ROS - Review of Systems Cardiovascular: denies: chest pain, palpitations, orthopnea, paroxysmal noc. dyspnea, edema, light headedness Skin: denies: rash, lesions, suzanna, bruising - Medication Medications: Active Medications Generic Name Dose Route Start Last Admin Trade Name Freq PRN Reason Stop Dose Admin Acetaminophen/Codeine Phosphate 2 tab 09/04/20 17:19 09/09/20 11:38 Acetaminophen/Codeine 30-300mg Tablet PO 2 tab Q6H PRN Administration Moderate Pain (4-6) Al Hydroxide/Mg Hydroxide 30 ml 09/02/20 05:54 09/07/20 20:01 Mag-Al 1200 Mg/1200 Mg/30 Ml Udcup PO 30 ml Q6H PRN Administration Heartburn or Indigestion Alprazolam 0.25 mg 09/07/20 15:55 09/09/20 06:43 Alprazolam 0.25 Mg Tab PO 0.25 mg BIDPRN PRN Administration Anxiety Amitriptyline HCl 100 mg 09/04/20 21:00 09/13/20 21:27 Amitriptyline Hcl 100 Mg Tab PO 100 mg QPM ALANNA Administration Ascorbic Acid 1,000 mg 09/02/20 09:00 09/14/20 09:07 Ascorbic Acid 500 Mg Chewable Tablet PO 1,000 mg DAILY ALANNA Administration Bisacodyl 10 mg 09/06/20 23:15 09/10/20 08:35 Bisacodyl 5 Mg Tab PO 10 mg DAILYPRN PRN Administration Constipation Clonidine 0.3 mg 09/04/20 15:00 09/14/20 09:05 Clonidine 0.3 Mg Tab PO 0.3 mg TID ALANNA Administration Diphenhydramine HCl 25 mg 09/04/20 17:18 09/12/20 08:13 Diphenhydramine 25 Mg Cap PO 25 mg Q6H PRN Administration Itching & Insomnia Diphenhydramine HCl 25 mg 09/09/20 18:10 09/14/20 12:56 Diphenhydramine 50 Mg/Ml Vial IVP 25 mg Q4H PRN Administration Itching Duloxetine HCl 60 mg 09/05/20 09:00 09/14/20 09:08 Duloxetine 60 Mg Cap PO 60 mg DAILY ALANNA Administration Epoetin John-epbx 20,000 unit 09/02/20 09:00 09/09/20 08:48 Epoetin John-Epbx (Esrd) 10,000 Unit/Ml Vial SC 20,000 unit Q7D ALANNA Administration Gabapentin 100 mg 09/04/20 21:00 09/13/20 21:27 Gabapentin 100 Mg Cap PO 100 mg HS ALANNA Administration Hydralazine HCl 100 mg 09/04/20 21:00 09/14/20 09:07 Hydralazine 25 Mg Tab PO 100 mg TID ALANNA Administration Hydroxyzine HCl 25 mg 09/10/20 10:54 09/12/20 21:54 Hydroxyzine 25 Mg Tab PO 25 mg Q6H PRN Administration Itching Gentamicin Sulfate 100 mg/ 100 mls @ 100 mls/hr 09/05/20 17:15 09/13/20 16:11 Device IVPB 100 mls WILLCALL ALANNA Administration Labetalol HCl 600 mg 09/09/20 21:00 09/14/20 12:56 Labetalol 100 Mg Tab PO 600 mg BID ALANNA Administration Morphine Sulfate 2 mg 09/13/20 23:09 09/14/20 12:57 Morphine 4 Mg/Ml Vial SLOW IVP 2 mg Q4H PRN Administration Severe Pain (7-10) Nifedipine 90 mg 09/12/20 21:00 09/14/20 09:08 Nifedipine Xl 90 Mg Tab PO 90 mg BID ALANNA Administration Ondansetron HCl 4 mg 09/01/20 16:35 09/14/20 09:46 Ondansetron Pf 4 Mg/2 Ml Vial IVP 4 mg Q6H PRN Administration Nausea/Vomiting Pantoprazole Sodium 40 mg 09/03/20 09:00 09/14/20 09:08 Pantoprazole 40 Mg Tab PO 40 mg DAILY ALANNA Administration Senna/Docusate Sodium 2 tab 09/06/20 23:15 09/09/20 20:11 Senokot S 8.6-50 Mg Tab PO 2 tab BID PRN Administration Constipation Sevelamer Carbonate 2,400 mg 09/02/20 08:00 09/14/20 12:55 Sevelamer Carbonate 800 Mg Tab PO 2,400 mg TID-WM ALANNA Administration Sodium Chloride 10 ml 09/10/20 09:00 09/14/20 09:08 Flush - Normal Saline 10 Ml Syringe IVF 10 ml Q12HR ALANNA Administration Sodium Chloride 10 ml 09/10/20 08:15 09/11/20 21:57 Flush - Normal Saline 10 Ml Syringe IVF 10 ml PRN PRN Administration Saline Flush - Exam General Appearance: awake alert Eye: anicteric sclera ENT: no oropharyngeal lesions Neck: symmetric Heart: RRR Respiratory: CTAB Gastrointestinal: soft, non-tender Skin: no rashes Psychiatric: normal behavior Hosp A/P - Plan -Assessment (1) MRSA bacteremia Code(s): R78.81 - BACTEREMIA; B95.62 - METHICILLIN RESIS STAPH INFCT CAUSING DISEASES CLASSD ELSWHR Status: Acute (2) Acute on chronic anemia Code(s): D64.9 - ANEMIA, UNSPECIFIED Status: Acute (3) ESRD (end stage renal disease) on dialysis Code(s): N18.6 - END STAGE RENAL DISEASE; Z99.2 - DEPENDENCE ON RENAL DIALYSIS Status: Chronic (4) Thrombocytopenia Code(s): D69.6 - THROMBOCYTOPENIA, UNSPECIFIED Status: Chronic - Plan Pulmonary embolism has been ruled out. Continue gentamicin/Rifampin/Vancomycin OOB/ambulate Nephrology following for dialysis.
[2020-09-14] MEDS: Acetaminophen/Codeine 30-300mg Tablet PO PRN (15:54)
[2020-09-14] MEDS: Heparin 5,000 UNITS/ML VIAL SC SCH ×3 (15:54→21:28)
[2020-09-14] MEDS: Amitriptyline HCl 100 MG TAB PO SCH (21:30)
[2020-09-14] MEDS: Gabapentin 100 MG CAP PO SCH (21:30)
[2020-09-15] MEDS: Morphine 4 MG/ML VIAL SLOW IVP PRN ×3 (01:32→11:06)
[2020-09-15] MEDS: diphenhydrAMINE 50 MG/ML VIAL IVP PRN ×3 (01:34→11:07)
[2020-09-15 05:48] LABS: #Eosinphils 0.7 thou/uL (0.0-0.7); #Lymphocytes 0.9 thou/uL (1.20-3.40); #Monocytes 0.6 thou/uL (0.11-0.59); #Neutrophils 3.1 thou/uL (1.40-6.50); %Basophils 0.7 % (0.0-1.0); %Eosinophils 12.6 % (0.0-10.0); %Lymphocytes 17.1 % (21.0-51.0); %Monocytes 10.5 % (0.0-10.0); %Neutrophils 59.2 % (42.0-75.0); Hemoglobin 8.1 g/dL (14.0-18.0); Mean Corpuscular HGB CONC 32.5 g/dL (32.0-36.0); Mean Corpuscular Hemoglobin 31.2 pg (27.0-31.0); Mean Platelet Volume 9.2 fL (7.4-10.4); Platelet Count 95 thou/uL (130-400); RBC Distribution Width 16.6 % (11.5-14.5); Red Blood Cell (RBC) Count 2.58 mill/uL (4.70-6.10); White Blood Cell (WBC) Count 5.2 thou/uL (4.8-10.8)
[2020-09-15 06:00] LABS: Anion Gap 14 mmol/L (10-20); BUN (Urea Nitrogen) 40 mg/dL (8.9-20.6); Calc. Creatinine Clearance 19 mL/min (70-130); Calcium 8.8 mg/dL (7.8-10.44); Carbon Dioxide 30 mmol/L (22-29); Chloride 96 mmol/L (98-107); Estimated GFR-MDRD 12; Glucose 92 mg/dL (70-105); Potassium 5.6 mmol/L (3.5-5.1); Sodium 134 mmol/L (136-145)
[2020-09-15] MEDS: hydrALAZINE 25 MG TAB PO SCH ×2 (08:01→15:51)
[2020-09-15] MEDS: cloNIDine 0.3 MG TAB PO SCH ×2 (08:01→15:51)
[2020-09-15] MEDS: Sevelamer Carbonate 800 MG TAB PO SCH ×2 (09:09→15:50)
[2020-09-15] MEDS: Labetalol 100 MG TAB PO SCH ×2 (09:10→16:45)
[2020-09-15] MEDS: DULoxetine 60 MG CAP PO SCH (09:10)
[2020-09-15] MEDS: Heparin 5,000 UNITS/ML VIAL SC SCH ×2 (09:10→15:50)
[2020-09-15] MEDS: Ascorbic Acid 500 mg Chewable Tablet PO SCH (09:10)
[2020-09-15] MEDS: NIFEdipine XL 90 MG TAB PO SCH ×2 (09:11→16:39)
[2020-09-15] MEDS ORDERED: Vancomycin HCl 750 MG in Sodium Chloride 0.9% 250 ML 250 ML IVPB SCH (10:30)
[2020-09-15] MEDS ORDERED: Vancomycin HCl 1.25 GM in Sodium Chloride 0.9% 250 ML 250 ML IVPB SCH (10:30)
[2020-09-15] MEDS ORDERED: Vancomycin HCl 1.5 GM in Sodium Chloride 0.9% 250 ML 300 ML IVPB SCH (10:30)
[2020-09-15] MEDS ORDERED: HOLD VANCOMYCIN FOR LEVEL >20 FS SCH (10:30)
[2020-09-15] MEDS ORDERED: Vancomycin 1 GM in Premix Bag 1 BAG IVPB SCH (10:30)
[2020-09-15] MEDS ORDERED: Vancomycin Sliding Scale 1 EACH FS ONE (10:30)
[2020-09-15] MEDS: Gentamicin Sulfate 100 MG in Premix Bag 1 BAG IVPB SCH (13:26)
[2020-09-15] MEDS ORDERED: Acetaminophen/Codeine 30-300mg Tablet PO PRN (14:17)
[2020-09-15 17:32] VITALS: BP 183/138; TEMP 97.8
--- NOTE | 2020-09-16 02:13 | DIS ---
DATE OF ADMISSION: 09/01/2020 DATE OF DISCHARGE: 09/15/2020 PRIMARY CARE PROVIDER: Dr. Nidhi Hilliard. DISCHARGE DIAGNOSES: 1. Methicillin-resistant Staphylococcus aureus bacteremia. 2. Hyponatremia. 3. Hyperkalemia. 4. COVID-19 test negative. CONDITION OF PATIENT ON THE DAY OF DISCHARGE: Stable. I assessed Mr. Martínez on the day of discharge. He denies any chest pain or shortness of breath. PHYSICAL EXAMINATION: VITAL SIGNS: Stable. HEART: S1 and S2 are heard, regular. LUNGS: Clear to auscultation bilaterally. CONSULTATIONS DURING THIS HOSPITALIZATION: 1. Infectious Diseases, Dr. Grayson. 2. Cardiology Dr. Eisenberg. 3. Nephrology, Dr. Arrieta. HOSPITAL COURSE: Mr. Martínez is a pleasant 25-year-old gentleman who was admitted to [facility] on September 15, 2020, for chest pain and concern for COVID-19 pneumonia. COVID-19 test was negative. He was seen by Nephrology and Infectious Disease Services. Blood cultures grew MRSA, 2/2 cultures. He was started on vancomycin and gentamicin. He also had MICHAEL, which did not show any vegetations on the cardiac valves. He complained of chest pain on September 13, 2020. D-dimer was elevated. He had PICC line placed for IV access and underwent CT angiogram. There was no evidence of pulmonary embolism. There was also no evidence of DVT within both lower extremities. CT scan of the chest, abdomen and pelvis on September 07 showed anasarca, small right pleural effusion and diffuse ground-glass opacities, likely due to pulmonary edema as well as large ascites. There was no evidence of bowel obstruction. He underwent ultrasound guided paracentesis on September 12, 2020. DISCHARGE MEDICATIONS: 1. Hydralazine dose has been increased to 100 mg three times a day. 2. He has been started on Procardia XL 90 mg 2 times a day. 3. He will receive vancomycin with hemodialysis till October 15, 2020. 4. Gentamicin with hemodialysis till September 22, 2020. 5. Starting September 23, he will start rifampin 300 mg 2 times a day till October 15, 2020. He will need weekly CBC, C-reactive protein done through Dialysis Clinic and results forwarded to Dr. Grayson. At the end of treatment, he will need blood cultures x2. He is also receiving a prescription for Tylenol No.3 one tablet three times a day as needed, 15 doses to be dispensed. Many thanks for allowing me to participate in your patient's care. Please feel free to contact me with any questions or concerns. ACTIVITY: As tolerated. DIET: Renal and heart healthy. DISCHARGE DESTINATION: Home. TIME SPENT: Total amount of time spent coordinating this discharge: 33 minutes. POST-ACUTE CARE FOLLOWUP: With primary care provider in 3 days. Job ID: [id number]
--- NOTE | 2020-09-17 06:57 | PRG ---
DATE OF SERVICE: 09/15/2020 SUBJECTIVE: A 25-year-old gentleman being seen for end-stage renal disease. The patient denies nausea, vomiting, or chest pain. OBJECTIVE: GENERAL: The patient is awake and alert. VITAL SIGNS: Afebrile. Pulse 66, breathing 16, blood pressure 154/100. HEENT: Head normocephalic and atraumatic. Eyes intact, no ulcers. Nose intact, no ulcers. Ears intact, no ulcers. NECK: Supple. No JVD. CHEST: Symmetrical and clear. CARDIOVASCULAR: Shows S1 and S2, no rub, no murmur. GASTROINTESTINAL: Abdomen is soft, bowel sounds positive. EXTREMITIES: Show no edema or ulcers. SKIN: Shows no rash or petechiae. MUSCULOSKELETAL: Shows no joint swelling or stiffness. GENITOURINARY: Shows no Pimentel or CVA tenderness. NEUROLOGIC: Motor intact. Cranial nerves intact. LABORATORIES: Reviewed. ASSESSMENT: 1. Stage 6 chronic kidney disease, plan dialysis per schedule. 2. Hypertension, stable. 3. Anemia, stable. 4. Infectious Disease continuing gentamicin and vancomycin per Infectious Disease recommendation. Job ID: [id number]
--- NOTE | 2020-09-17 21:22 | PQF ---
Dear : Cy Hernandez Date 09/17/20 Please exercise your independent, professional judgment in responding to the clarification form. Clinical indicators are provided on the bottom of this form for your review Can you please further clarify if Sepsis if ruled in or ruled out? Sepsis [ ] Ruled in diagnosis [ ] Continue to treat [ ] Resolved [ x ] Ruled out diagnosis [ ] Improving [ ] Cannot rule out diagnosis [ ] Other diagnosis [ ] Unable to determine In addition, please specify: Present on Admission (POA): [ ] Yes [ ] No [ ] Unable to determine To be completed by CDI/Coding staff for physician review: Present Clinical Indicators - Signs / Symptoms / Labs Results and Location in Medical Record [ x ] 2 days cough, as well as left sided chest pain and abdominal pain. Generalized weakness H and P pg.1 [ x ] WBC: 6.0, 6.0, 6.4, 6.5, 5.6, 5.4, 5.4, 5.2 Laboratory [ x ] Lactic acid 1.0, 0.8 Laboratory [ x ] Sepsis Hospitalist PN 09/02 pg.3 [ x ] Sepsis type: methicillin resistance Staphylococcus aureus Hospitalist PN 09/02 pg.3 [ x ] MRSA mitral valve endocarditis with persistence Consult Dr. 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 Renuka Grayson 09/02 [ x ] MICHAEL OP report 09/07 [ x ] PICC line insertion Interventional procedure note 09/14 [ x ] IV Fluids MAR [ x ] Blood culture Microbiology [ x ] Vancomycin 1 gm IV MAR [ x ] Cefepime 2gm IV MAR [ x ] Gentamicin 80mg IV MAR CDS/Efficiency Clerk Signature: Danny Noguera Phone #: ext [phone] Date 09/18/20 This is a permanent part of the Medical Record [facility]
== END 2020-09-15 16:56 | disposition home or self-care (01) | DRG 871 ==
LOC: ERS 11:18 → T4-B 16:53
PROVIDERS: ADMIT Internal Medicine; ATTEND Internal Medicine
PROC: 5A1D70Z Performance of Urinary Filtration, Intermittent, Less than 6 Hours Per Day (ICD-10-PCS; 2020-09-01)
PROC: B24BZZ4 Ultrasonography of Heart with Aorta, Transesophageal (ICD-10-PCS; 2020-09-06)
PROC: 30233N1 Transfusion of Nonautologous Red Blood Cells into Peripheral Vein, Percutaneous Approach (ICD-10-PCS; 2020-09-11)
PROC: 0W9G3ZZ Drainage of Peritoneal Cavity, Percutaneous Approach (ICD-10-PCS; 2020-09-12)
PROC: 02HV33Z Insertion of Infusion Device into Superior Vena Cava, Percutaneous Approach (ICD-10-PCS; principal; 2020-09-14)
PROC: B548ZZA Ultrasonography of Superior Vena Cava, Guidance (ICD-10-PCS; 2020-09-14)
DX: R78.81 Bacteremia (principal); N18.6 End stage renal disease; M31.0 Hypersensitivity angiitis; E87.1 Hypo-osmolality and hyponatremia; I42.0 Dilated cardiomyopathy; N25.81 Secondary hyperparathyroidism of renal origin; J81.1 Chronic pulmonary edema; R18.8 Other ascites; I12.0 Hypertensive chronic kidney disease with stage 5 chronic kidney disease or end stage renal disease; Z20.828 Contact with and (suspected) exposure to other viral communicable diseases; D69.6 Thrombocytopenia, unspecified; D63.1 Anemia in chronic kidney disease; E87.70 Fluid overload, unspecified; K21.9 Gastro-esophageal reflux disease without esophagitis; E88.09 Other disorders of plasma-protein metabolism, not elsewhere classified; G89.29 Other chronic pain; E87.5 Hyperkalemia; Z99.2 Dependence on renal dialysis; Z95.2 Presence of prosthetic heart valve; Z86.79 Personal history of other diseases of the circulatory system; B95.62 Methicillin resistant Staphylococcus aureus infection as the cause of diseases classified elsewhere
CPT/HCPCS: 36415; 36416; 36430; 36569; 49083; 71045; 71260; 71275; 74018; 74174; 74177; 76705; 80048; 80053; 80170; 80202; 82550; 82728; 83516; 83605; 83690; 83735; 83880; 84484; 85014; 85018; 85025; 85049; 85379; 85730; 86140; 86850; 86900; 86901; 87040; 87077; 87149; 87186; 87635; 87804; 90935; 93005; 93010; 93306; 93312; 93970; 94760; 96365; 96367; 96372; 96375; 96376; C1751; C9113; G0257; J0692; J1100; J1200; J1580; J1644; J1650; J2270; J2405; J2704; J2765; J3370; J3490; J7050; J8540; P9016; Q0163; Q5105; Q9967; U0003

== ENCOUNTER 2020-09-18 19:26 | Emergency (ER) | payer OTHER ==
[2020-09-18] MEDS ORDERED: Ketorolac Tromethamine 30 MG/ML VIAL ONE (20:07)
[2020-09-19 11:08] LABS: SARS-CoV-2 MS2 Positive; SARS-CoV-2 N Gene Negative; SARS-CoV-2 S Gene Negative; SARS-CoV-2 by NAA Not Detected (NotDetected); SARS-CoV-2 orf1ab Negative
== END 2020-09-18 21:32 | disposition home or self-care (01) ==
LOC: ERS 19:26
DX: R51.9 Headache, unspecified (principal); J34.89 Other specified disorders of nose and nasal sinuses; Z20.828 Contact with and (suspected) exposure to other viral communicable diseases; I12.0 Hypertensive chronic kidney disease with stage 5 chronic kidney disease or end stage renal disease; N18.6 End stage renal disease; Z94.0 Kidney transplant status; Z79.899 Other long term (current) drug therapy
CPT/HCPCS: 87635; 87804; 96372; 99284; J1885; U0003

== ENCOUNTER 2020-09-19 21:55 | Emergency (ER) | payer OTHER ==
[2020-09-19 22:38] LABS: #Eosinphils 0.5 thou/uL (0.0-0.7); #Lymphocytes 0.9 thou/uL (1.20-3.40); #Monocytes 0.5 thou/uL (0.11-0.59); #Neutrophils 3.4 thou/uL (1.40-6.50); %Basophils 0.9 % (0.0-1.0); %Eosinophils 9.2 % (0.0-10.0); %Lymphocytes 17.6 % (21.0-51.0); %Monocytes 8.5 % (0.0-10.0); %Neutrophils 63.8 % (42.0-75.0); Hemoglobin 7.8 g/dL (14.0-18.0); Mean Corpuscular HGB CONC 33.1 g/dL (32.0-36.0); Mean Corpuscular Volume 96.8 fL (78.0-98.0); Mean Platelet Volume 8.8 fL (7.4-10.4); Platelet Count 83 thou/uL (130-400); RBC Distribution Width 16.1 % (11.5-14.5); Red Blood Cell (RBC) Count 2.45 mill/uL (4.70-6.10); White Blood Cell (WBC) Count 5.3 thou/uL (4.8-10.8)
[2020-09-19 22:58] LABS: ALT (SGPT) 17 U/L (8-55); AST (SGOT) 33 U/L (5-34); Albumin 3.2 g/dL (3.5-5.0); Alkaline Phosphatase 155 U/L (40-110); Anion Gap 17 mmol/L (10-20); BUN (Urea Nitrogen) 39 mg/dL (8.9-20.6); CK (CPK) 100 U/L (30-200); Calc. Creatinine Clearance 0 mL/min (70-130); Calcium 8.2 mg/dL (7.8-10.44); Carbon Dioxide 30 mmol/L (22-29); Chloride 97 mmol/L (98-107); Estimated GFR-MDRD 12; Glucose 79 mg/dL (70-105); Potassium 6.5 mmol/L (3.5-5.1); Protein, Total 7.2 g/dL (6.0-8.3); Sodium 137 mmol/L (136-145)
[2020-09-19] MEDS ORDERED: Morphine 4 MG/ML VIAL ONE (22:58)
--- NOTE | 2020-09-20 06:25 | RAD ---
PORTABLE CHEST: Date: 09/19/2020 HISTORY: Weakness, shortness of breath, and fever. COMPARISON: 09/01/2020. FINDINGS/IMPRESSION: Cardiomegaly with vascular congestion. Hazy bilateral infiltrates, more extensive on the right. This could represent superimposed pneumonia or asymmetric edema. Findings are similar to the 09/01/2020 ex am. POS: [facility]
== END 2020-09-20 00:21 | disposition home or self-care (01) ==
LOC: ERS 21:55
DX: M79.10 Myalgia, unspecified site (principal); I12.0 Hypertensive chronic kidney disease with stage 5 chronic kidney disease or end stage renal disease; N18.6 End stage renal disease; F41.9 Anxiety disorder, unspecified; Z79.899 Other long term (current) drug therapy
CPT/HCPCS: 36415; 71045; 80053; 82550; 83605; 85025; 86140; 96374; J2270

== ENCOUNTER 2020-09-20 12:25 | Inpatient (IN) | payer OTHER ==
[2020-09-20] MEDS ORDERED: Calcium Chloride 1 GM/10 ML Abboject SYRINGE ONE (13:58)
[2020-09-20 14:00] LABS: #Basophils 0.1 thou/uL (0.0-0.2); #Eosinphils 0.6 thou/uL (0.0-0.7); #Monocytes 0.5 thou/uL (0.11-0.59); #Neutrophils 3.8 thou/uL (1.40-6.50); %Basophils 0.9 % (0.0-1.0); %Eosinophils 10.8 % (0.0-10.0); %Lymphocytes 16.1 % (21.0-51.0); %Monocytes 8.4 % (0.0-10.0); %Neutrophils 63.8 % (42.0-75.0); Hemoglobin 8.1 g/dL (14.0-18.0); Mean Corpuscular HGB CONC 32.8 g/dL (32.0-36.0); Mean Corpuscular Hemoglobin 31.8 pg (27.0-31.0); Mean Corpuscular Volume 97.1 fL (78.0-98.0); Platelet Count 97 thou/uL (130-400); Red Blood Cell (RBC) Count 2.55 mill/uL (4.70-6.10); White Blood Cell (WBC) Count 5.9 thou/uL (4.8-10.8)
[2020-09-20 14:19] LABS: ALT (SGPT) 17 U/L (8-55); AST (SGOT) 30 U/L (5-34); Albumin 3.3 g/dL (3.5-5.0); Alkaline Phosphatase 168 U/L (40-110); Anion Gap 14 mmol/L (10-20); BUN (Urea Nitrogen) 44 mg/dL (8.9-20.6); Calc. Creatinine Clearance 0 mL/min (70-130); Carbon Dioxide 31 mmol/L (22-29); Chloride 95 mmol/L (98-107); Estimated GFR-MDRD 11; Globulin 4.3 g/dL (2.4-3.5); Glucose 87 mg/dL (70-105); Protein, Total 7.6 g/dL (6.0-8.3); Sodium 133 mmol/L (136-145)
[2020-09-20 14:26] LABS: Potassium 6.7 mmol/L (3.5-5.1)
[2020-09-20] MEDS ORDERED: Insulin Regular 300 UNITS/3 ML VIAL ONE (14:38)
[2020-09-20] MEDS ORDERED: Dextrose 50% Abboject 50 ML SYRINGE ONE (14:38)
--- NOTE | 2020-09-20 15:18 | RAD ---
ABDOMEN 2 VIEWS WITH 1 VIEW CHEST: Date: 09/20/2020 HISTORY: Abdominal pain, distention. COMPARISON: None. FINDINGS: Evidence of prior mitral valve replacement. Perihilar opacities are relatively similar with mild pulm onary edema. Trace effusions. Multiple midline sternotomy wires. No dilated loops of large or small bowel. Likely calcified right p elvic kidney. No free air on the decubitus views. IMPRESSION: 1. Mild decompensating congestive heart failure. 2. Moderate ascites. 3. Calcified right pelvic kidney. POS: [facility]
--- NOTE | 2020-09-20 15:44 | CT ---
CT ABDOMEN AND PELVIS WITHOUT CONTRAST: 09/20/20 PROVIDED CLINICAL HISTORY: Abdominal pain. COMPARISON: Comparison is made with the examination dated 07/27/20. Evaluation is limited due to diffuse anasarca and lack of intrinsic fat contrast. Lack of IV and ente yevgeniy contrast material limit evaluation. The visualized lung bases demonstrate small right pleural fluid and bibasilar patchy parenchymal opac ities and ground glass opacity. The heart appears prominently enlarged. Mitral valve replacement melgoza ges are seen. There is large volume free intraperitoneal fluid and diffuse fluid density within the region of subc utaneous adipose layer redemonstrated. Atrophic bilateral kidneys and dystrophic calcifications in th e right lower quadrant compatible with failed renal transplant are redemonstrated. There is no evidence for bowel obstruction. Evaluation for inflammatory fat stranding is markedly fuentes ited, without gross evidence for such. There is no evidence for free intraperitoneal fluid the solid abdominal organs are suboptimally evaluated in the absence of IV contrast material but appear grossly unremarkable in their unenhanced CT appearance other than the renal findings described. Increased de nsity within the gallbladder is presumably on the basis of vicarious excretion of contrast material. Diffuse osseous sclerosis is redemonstrated. IMPRESSION: 1. Right pleural fluid and bibasilar pulmonary parenchymal findings that may reflect pulmonary e bharati or pneumonia. 2. Stable large volume free intraperitoneal fluid and anasarca. 3. No definite evidence for an acute intra-abdominal process with limitations as described. POS: DOYLE
--- NOTE | 2020-09-20 17:29 | PDOC.HHP ---
Hospitalist HPI - History of Present Illness Abdominal pain, generalized weakness History of Present Illness: This is a 25-year-old male patient with a history of ESRD on dialysis, bioprosthetic valve, recent MRSA bacteremia and was discharged 4 days ago to continue antibiotics with dialysis and ED follow-up. At my time of my evaluation patient was drowsy and ill looking and was not in the position to talk much. He however denied any ongoing vomiting but admits to nausea. He denies any diarrhea, fevers or headaches. Apparently, since discharge he has been pretty sick and has not been able to have dialysis. Is unclear whether he has been able to follow-up on the antibiotic recommendationsvancomycin gentamicin and rifampicin. Today he was at his dialysis unit initially found be so sick he was sent here without dialysis for further management. At presentation his blood pressure was 107/69, pulse was 67, respiratory rate 18, temperature 97.9 on room air. Labs were significant for mild hyponatremia of 133, hyperkalemia of 6.7, BUN 44 and creatinine 7.69. He had no leukocytosis, hemoglobin was 8.1, and platelet count was 97. Blood glucose was 79 and lactate was not measured. CT abdomen and pelvis revealed right pleural effusion and basilar pulmonary parenchymal findings that may reflect pulmonary edema or pneumonia, stable large volume of free intraperitoneal fluid and anasarca, no definite evidence of acute intra- abdominal process. His Covid test was -2 days ago. For his hyperkalemia he received calcium chloride, SPS, 10 units insulin, dextrose. Nephrology was consulted given his ESRD and hyperkalemia Hospitalist team consulted for admission Hospitalist ROS - Review of Systems Constitutional: reports: weakness. denies: fever, sweats Respiratory: reports: shortness of breath, SOB with excertion. denies: cough, hemoptysis Cardiovascular: denies: chest pain, palpitations, orthopnea Gastrointestinal: reports: nausea, abdominal pain. 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 and currently on dialysis on Friday, Friday and Clarence) Dermatology: reports: Eczema (Chronic itching) - Past Surgical History Past Surgical History: reports: Other (Bioprosthetic mitral valve replaced, right kidney transplant, dialysis fistula access) - Social History Alcohol: reports: Occassional Drugs: reports: marijuana Occupation: Disabled - Exam General Appearance: ill appearing Eye: negative: PERRL, anicteric sclera Heart: RRR, no murmur, no gallops, no rubs Respiratory: no wheezes (Occasional), no tachypnea Respiratory - other findings: Bilateral coarse breath sounds at the bases Gastrointestinal: soft, non-tender, normal bowel sounds, distended Extremities: no cyanosis, no clubbing, 1+ LE edema Neurological: cranial nerve grossly intact, normal sensation to touch, no focal deficits Psychiatric: normal behavior, A&O x 3, flat affect Hospitalist Results - Labs Result Diagrams: 09/20/20 12:43 09/20/20 17:55 Lab results: WBC 5.9 thou/uL (4.8-10.8) 09/20/20 12:43 Hgb 8.1 g/dL (14.0-18.0) L 09/20/20 12:43 Hct 24.7 % (42.0-52.0) L 09/20/20 12:43 MCV 97.1 fL (78.0-98.0) 09/20/20 12:43 Plt Count 97 thou/uL (130-400) L 09/20/20 12:43 Neutrophils % 63.8 % (42.0-75.0) 09/20/20 12:43 Sodium 133 mmol/L (136-145) L 09/20/20 12:43 Potassium 6.7 mmol/L (3.5-5.1) H* 09/20/20 12:43 Chloride 95 mmol/L (98-107) L 09/20/20 12:43 Carbon Dioxide 31 mmol/L (22-29) H 09/20/20 12:43 BUN 44 mg/dL (8.9-20.6) H 09/20/20 12:43 Creatinine 7.69 mg/dL (0.7-1.3) H 09/20/20 12:43 Glucose 87 mg/dL (70-105) 09/20/20 12:43 Calcium 8.0 mg/dL (7.8-10.44) 09/20/20 12:43 Total Bilirubin 1.0 mg/dL (0.2-1.2) 09/20/20 12:43 AST 30 U/L (5-34) 09/20/20 12:43 ALT 17 U/L (8-55) 09/20/20 12:43 Alkaline Phosphatase 168 U/L (40-110) H 09/20/20 12:43 Serum Total Protein 7.6 g/dL (6.0-8.3) 09/20/20 12:43 Albumin 3.3 g/dL (3.5-5.0) L 09/20/20 12:43 Hospitalist H&P A/P - Plan Plan: This a 25-year-old male patient with a history of end-stage renal disease on dialysis, prosthetic valve, recently diagnosed with MRSA bacteremia who presents with worsening abdominal pain, nausea weakness and lethargy. Possible sepsis Discharged 4 days ago with MRSA bacteremia supposed to take antibiotics Coming in with altered mental status and general malaise Unclear whether he takes antibiotics since his been discharged given his ongoing illness. Order blood cultures, lactate Start vancomycin with dialysis Zosynrenally dosed Trend lactate if elevated ID consult if indicated. Acute encephalopathy Patient quite drowsy Likely secondary to possible sepsis/uremia Hypokalemia Potassium 6.7 on presentation Received insulin and calcium Repeat [facility] Nephrology consultedreconcile dialysis. ESRD For dialysis today Consulted nephrology. Thrombocytopenia Stable Hypertension Start home meds once verified Anemia Globin 8.1 Secondary to ESRD Monitor Transfuse if hemoglobin goes less than 7 VTE prophylaxisHeparin CODE STATUS full code
[2020-09-20 18:26] LABS: Anion Gap 18 mmol/L (10-20); BUN (Urea Nitrogen) 48 mg/dL (8.9-20.6); Calc. Creatinine Clearance 0 mL/min (70-130); Calcium 8.5 mg/dL (7.8-10.44); Carbon Dioxide 26 mmol/L (22-29); Chloride 96 mmol/L (98-107); Estimated GFR-MDRD 10; Glucose 85 mg/dL (70-105); Potassium 5.9 mmol/L (3.5-5.1); Sodium 134 mmol/L (136-145)
[2020-09-20] MEDS: EPOETIN ALFA-EPBX (ESRD) 10,000 UNIT/ML VIAL IVP SCH (21:33)
[2020-09-20] MEDS: Acetaminophen 325 MG TAB PO PRN (21:40)
[2020-09-20] MEDS ORDERED: Piperacillin/Tazobactam 2.25 GM in Sodium Chloride 0.9% 100 ML IVPB SCH (22:00)
[2020-09-20] MEDS: Heparin 5,000 UNITS/ML VIAL SC SCH (22:49)
[2020-09-21 02:26] VITALS: BMI 24.1
[2020-09-21 04:50] LABS: Anion Gap 17 mmol/L (10-20); BUN (Urea Nitrogen) 26 mg/dL (8.9-20.6); Calc. Creatinine Clearance 28 mL/min (70-130); Calcium 8.4 mg/dL (7.8-10.44); Carbon Dioxide 25 mmol/L (22-29); Chloride 100 mmol/L (98-107); Estimated GFR-MDRD 17; Glucose 112 mg/dL (70-105); Magnesium 1.9 mg/dL (1.6-2.6); Potassium 4.6 mmol/L (3.5-5.1); Sodium 137 mmol/L (136-145)
[2020-09-21 05:17] LABS: #Eosinphils 0.6 thou/uL (0.0-0.7); #Lymphocytes 0.9 thou/uL (1.20-3.40); #Monocytes 0.3 thou/uL (0.11-0.59); #Neutrophils 3.2 thou/uL (1.40-6.50); %Basophils 0.2 % (0.0-1.0); %Eosinophils 12.1 % (0.0-10.0); %Lymphocytes 17.7 % (21.0-51.0); %Monocytes 5.8 % (0.0-10.0); %Neutrophils 64.2 % (42.0-75.0); Hemoglobin 7.9 g/dL (14.0-18.0); Mean Corpuscular HGB CONC 32.8 g/dL (32.0-36.0); Mean Corpuscular Hemoglobin 32.1 pg (27.0-31.0); Mean Corpuscular Volume 97.8 fL (78.0-98.0); Mean Platelet Volume 9.1 fL (7.4-10.4); Platelet Count 97 thou/uL (130-400); RBC Distribution Width 15.9 % (11.5-14.5); Red Blood Cell (RBC) Count 2.47 mill/uL (4.70-6.10)
--- NOTE | 2020-09-21 06:50 | CON ---
DATE OF CONSULTATION: 09/20/2020 CONSULTING PHYSICIAN: Dr. Galdamez. REASON FOR CONSULTATION: End-stage renal disease evaluation. REASON FOR ADMISSION: Not feeling well. HISTORY OF PRESENT ILLNESS: A 25-year-old male with a history of end-stage renal disease, MRSA bacteremia, endocarditis, edema, anemia, came to the hospital with not feeling well. He was due for dialysis today and was seen at dialysis, but he was feeling very weak and was not felt stable to have outpatient dialysis and sent to the hospital. He is currently being admitted. His potassium was 6.7 with elevated BUN and hyponatremia. The patient remains very weak and somnolent. No fever or chills. No nausea or vomiting. PAST MEDICAL HISTORY: Positive for end-stage renal disease, anemia, endocarditis, Goodpasture syndrome, failed renal transplant. PAST SURGICAL HISTORY: Renal transplant, dialysis access placement, mitral valve replacement. HOME MEDICATIONS: Reviewed. ALLERGIES: LORACARBEF. SOCIAL HISTORY: History of smoking and marijuana use. No alcohol use. FAMILY HISTORY: No history of kidney disease. REVIEW OF SYSTEMS: The following complete review of systems was negative, unless otherwise mentioned in the HPI or below: Constitutional: Weight loss or gain, ability to conduct usual activities. Skin: Rash, itching. Eyes: Double vision, pain. ENT/Mouth: Nose bleeding, neck stiffness, pain, tenderness. Cardiovascular: Palpitations, dyspnea on exertion, orthopnea. Respiratory: Shortness of breath, wheezing, cough, hemoptysis, fever or night sweats. Gastrointestinal: Poor appetite, abdominal pain, heartburn, nausea, vomiting, constipation, or diarrhea. Genitourinary: Urgency, frequency, dysuria, nocturia. Musculoskeletal: Pain, swelling. Neurologic/Psychiatric: Anxiety, depression. Allergy/Immunologic: Skin rash, bleeding tendency. PHYSICAL EXAMINATION: GENERAL: This is a well-built male, in no apparent distress. VITAL SIGNS: Reviewed. HEENT: Atraumatic, normocephalic. Oral mucosa moist. NECK: Supple. CV: S1 and S2 regular. RESPIRATORY: Clear. GI: Abdomen is soft. MUSCULOSKELETAL: 1+ edema. DERMATOLOGIC: No skin rash. NEUROLOGICAL: Somnolent PSYCH: Guarded, depressed. LABORATORY DATA: Hemoglobin is 8.1, potassium 5.9 from 6.7, BUN is 48, creatinine is 7.8. ASSESSMENT AND PLAN: 1. End-stage renal disease. Plan to have dialysis today. 2. Severe hyperkalemia. 3. Hyponatremia. 4. Acidosis. 5. Hypoalbuminemia. 6. History of hypertension. 7. Anemia of chronic disease. 8. Edema with fluid overload. Plan to have dialysis today and vancomycin with dialysis. I agree with blood culture and follow up culture and deescalate the antibiotics as needed. Prognosis remains guarded and the patient remains high risk for complication. Will have dialysis as tolerated. Thank you for the consult. Job ID: [id number]
--- NOTE | 2020-09-21 07:13 | RAD ---
Exam: Chest one view HISTORY:Sepsis Comparison: 09/20/2020 FINDINGS: Cardiac silhouette:Cardiomegaly. Stable sternotomy wires. Stable prosthetic aortic valve. Aorta: Unremarkable Pulmonary vessels: Normal Costophrenic angles: Clear LUNGS: Progression of interstitial and alveolar opacities. Pneumothorax: None Osseous abnormalities: None IMPRESSION: Congestive heart failure. Superimposed pneumonia cannot be excluded.
[2020-09-21] MEDS ORDERED: HYDROmorphone 2 MG TAB PO PRN (08:12)
[2020-09-21] MEDS ORDERED: HYDROmorphone 0.5 MG/0.5 ML SYRINGE SLOW IVP SCH (08:15)
[2020-09-21] MEDS ORDERED: Gabapentin 300 MG CAP PO SCH (09:00)
[2020-09-21] MEDS ORDERED: cloNIDine 0.1 MG TAB PO SCH (09:00)
[2020-09-21] MEDS ORDERED: Non-Formulary Item 1 EACH (Hydralazine Hcl [Hydralazine Hcl] 100 MG Tablet) PO SCH (09:00)
[2020-09-21] MEDS ORDERED: Vancomycin 1 GM in Premix Bag 1 BAG IVPB SCH ×2 (09:00→10:15)
[2020-09-21] MEDS ORDERED: Non-Formulary Item 1 EACH (Labetalol Hcl [Normodyne] 200 MG Tab) PO SCH (09:00)
[2020-09-21] MEDS: Piperacillin/Tazobactam 2.25 GM in Sodium Chloride 0.9% 100 ML IVPB SCH ×2 (09:07→18:11)
[2020-09-21] MEDS: cloNIDine 0.3 MG TAB PO SCH ×3 (09:07→20:43)
[2020-09-21] MEDS: Labetalol 100 MG TAB PO SCH ×2 (09:08→20:45)
[2020-09-21] MEDS: hydrALAZINE 25 MG TAB PO SCH ×3 (09:09→20:44)
[2020-09-21] MEDS: NIFEdipine XL 90 MG TAB PO SCH ×2 (09:09→20:45)
[2020-09-21] MEDS: DULoxetine 60 MG CAP PO SCH (09:09)
[2020-09-21] MEDS: Gabapentin 100 MG CAP PO SCH ×2 (09:10→20:43)
[2020-09-21 09:14] LABS: Vancomycin, Trough 10.2 ug/mL
[2020-09-21] MEDS: Heparin 5,000 UNITS/ML VIAL SC SCH ×3 (09:16→20:43)
[2020-09-21] MEDS ORDERED: Vancomycin HCl 750 MG in Sodium Chloride 0.9% 250 ML 250 ML IVPB SCH (10:15)
[2020-09-21] MEDS ORDERED: Vancomycin HCl 500 MG in Sodium Chloride 0.9% 100 ML IVPB SCH (10:15)
[2020-09-21] MEDS ORDERED: HOLD VANCOMYCIN FOR LEVEL >20 FS SCH (10:15)
[2020-09-21] MEDS ORDERED: Vancomycin HCl 1.25 GM in Sodium Chloride 0.9% 250 ML 250 ML IVPB SCH (10:15)
[2020-09-21] MEDS ORDERED: EPOETIN ALFA-EPBX (ESRD) 10,000 UNIT/ML VIAL SC SCH (13:00)
[2020-09-21] MEDS: HYDROmorphone 2 MG TAB PO PRN (13:01)
[2020-09-21] MEDS: diphenhydrAMINE 25 MG CAP PO PRN ×2 (16:33→20:46)
[2020-09-21] MEDS ORDERED: Ondansetron PF 4 MG/2 ML Vial IVP PRN (18:18)
[2020-09-21] MEDS ORDERED: Ondansetron ODT 4 MG TAB PO PRN (18:18)
--- NOTE | 2020-09-21 20:16 | PDOC.HOSPP ---
- Subjective Encounter Date: 09/21/20 Encounter Time: 09:00 Subjective: Patient was seen and examined in bed. He had dialysis overnight feels a little better. Still has ongoing abdominal pain and generalized body pains. He also has generalized itching. Denies any worsening shortness of breath or chest pain - Objective Vital Signs & Weight: Vital Signs (12 hours) Temp Pulse Resp BP Pulse Ox 09/21/20 15:56 98.8 F 97 22 H 135/86 93 L 09/21/20 12:45 98.8 F 87 24 H 128/72 92 L 09/21/20 09:08 85 Weight Weight 188 lb 0.869 oz I&O: 09/20/20 09/21/20 09/22/20 06:59 06:59 06:59 Intake Total 999 2079 Balance 999 2079 Result Diagrams: 09/21/20 03:30 09/21/20 03:30 Additional Labs: Accuchecks 09/21/20 09/21/20 09/20/20 06:09 00:22 22:33 POC Glucose 84 102 H 113 H 09/20/20 20:34 POC Glucose 121 H Hospitalist ROS - Medication Medications: Active Medications Generic Name Dose Route Start Last Admin Trade Name Freq PRN Reason Stop Dose Admin Acetaminophen 650 mg 09/20/20 20:16 09/20/20 21:40 Acetaminophen 325 Mg Tab PO 650 mg Q4H PRN Administration Headache/Fever/Mild Pain (1-3) Clonidine 0.3 mg 09/21/20 09:00 09/21/20 16:04 Clonidine 0.3 Mg Tab PO 0.3 mg TID ALANNA Administration Diphenhydramine HCl 25 mg 09/21/20 16:16 09/21/20 16:33 Diphenhydramine 25 Mg Cap PO 25 mg Q4H PRN Administration Itching Duloxetine HCl 60 mg 09/21/20 09:00 09/21/20 09:09 Duloxetine 60 Mg Cap PO 60 mg DAILY ALANNA Administration Epoetin John-epbx 10,000 unit 09/20/20 16:30 09/20/20 21:33 Epoetin John-Epbx (Esrd) 10,000 Unit/Ml Vial IVP Not Given MoWeFr ALANNA Gabapentin 100 mg 09/21/20 09:00 09/21/20 09:10 Gabapentin 100 Mg Cap PO 100 mg BID ALANNA Administration Heparin Sodium (Porcine) 5,000 units 09/20/20 21:00 09/21/20 16:11 Heparin 5,000 Units/Ml Vial SC Not Given TID ALANNA Hydralazine HCl 100 mg 09/21/20 09:00 09/21/20 16:03 Hydralazine 25 Mg Tab PO 100 mg TID ALANNA Administration Hydromorphone HCl 1 mg 09/21/20 12:07 09/21/20 13:01 Hydromorphone 2 Mg Tab PO 1 mg Q4H PRN Administration Moderate to Severe Pain (6-10) Piperacillin Sod/Tazobactam 100 mls @ 200 mls/hr 09/21/20 10:00 09/21/20 18:11 Sod 2.25 gm/ Sodium Chloride IVPB 100 mls 0200,1000,1800 ALANNA Administration Labetalol HCl 600 mg 09/21/20 09:00 09/21/20 09:08 Labetalol 100 Mg Tab PO 600 mg BID ALANNA Administration Nifedipine 90 mg 09/21/20 09:00 09/21/20 09:09 Nifedipine Xl 90 Mg Tab PO 90 mg BID ALANNA Administration Ondansetron HCl 4 mg 09/21/20 18:18 09/21/20 18:38 Ondansetron Pf 4 Mg/2 Ml Vial IVP 4 mg Q6H PRN Administration Nausea/Vomiting Sodium Chloride 10 ml 09/21/20 09:00 09/21/20 09:17 Flush - Normal Saline 10 Ml Syringe IVF 10 ml Q12HR ALANNA Administration Sodium Chloride 10 ml 09/21/20 07:00 09/21/20 09:12 Flush - Normal Saline 10 Ml Syringe IVF 10 ml PRN PRN Administration Saline Flush - Exam General Appearance: awake alert, ill appearing Eye: PERRL, anicteric sclera Neck: supple, symmetric, no JVD, no lymphadenopathy Heart: RRR, no murmur, no gallops, normal peripheral pulses Respiratory: no wheezes, no rales, no ronchi, normal chest expansion Gastrointestinal: soft, non-distended, normal bowel sounds, tender to palpation (No rebound tenderness or guarding) Extremities: no cyanosis, no clubbing, 1+ LE edema Musculoskeletal: generalized weakness Psychiatric: A&O x 3, flat affect Hosp A/P - Plan This a 25-year-old male patient with a history of end-stage renal disease on dialysis, prosthetic valve, recently diagnosed with MRSA bacteremia who presents with worsening abdominal pain, nausea weakness and lethargy. Possible sepsis Septic shock most likely lung Also recent history of MRSA bacteremia No growth on blood cultures so far We will continue Vanco Zosyn for now and continue following blood cultures. ID consult if indicated Acute encephalopathy Significantly improved Continue monitoring Severe intermittent abdominal pain Etiology unclear CT of the ago was negative As needed medications Continue antibiotics Monitor Hyperkalemia Resolved with dialysis ESRD With volume overload For dialysis today Hope to remove some fluids Consulted nephrology. Thrombocytopenia Stable Hypertension Start home meds once verified Anemia Hb 7.9 Stable monitor VTE prophylaxisSCDs CODE STATUS full code
[2020-09-21] MEDS: Amitriptyline HCl 100 MG TAB PO SCH (20:42)
[2020-09-21] MEDS: Acetaminophen 325 MG TAB PO PRN (20:46)
[2020-09-21] MEDS ORDERED: AMITRIPTYLINE HCL 100 MG PO SCH (21:00)
[2020-09-21] MEDS ORDERED: FLU VACC QS2020-21(6MOS UP)/PF 60 MCG/0.5 ML SYRINGE IM ONE (21:00)
[2020-09-22] MEDS: Piperacillin/Tazobactam 2.25 GM in Sodium Chloride 0.9% 100 ML IVPB SCH (01:25)
[2020-09-22 04:43] LABS: #Eosinphils 0.7 thou/uL (0.0-0.7); #Lymphocytes 1.1 thou/uL (1.20-3.40); #Monocytes 0.6 thou/uL (0.11-0.59); #Neutrophils 3.4 thou/uL (1.40-6.50); %Basophils 0.7 % (0.0-1.0); %Eosinophils 11.7 % (0.0-10.0); %Lymphocytes 18.4 % (21.0-51.0); %Monocytes 9.9 % (0.0-10.0); %Neutrophils 59.3 % (42.0-75.0); Hemoglobin 7.1 g/dL (14.0-18.0); Mean Corpuscular HGB CONC 32.6 g/dL (32.0-36.0); Mean Corpuscular Hemoglobin 31.7 pg (27.0-31.0); Mean Corpuscular Volume 97.2 fL (78.0-98.0); Mean Platelet Volume 9.6 fL (7.4-10.4); Platelet Count 72 thou/uL (130-400); RBC Distribution Width 15.8 % (11.5-14.5); Red Blood Cell (RBC) Count 2.24 mill/uL (4.70-6.10); White Blood Cell (WBC) Count 5.7 thou/uL (4.8-10.8)
[2020-09-22 04:58] LABS: Anion Gap 16 mmol/L (10-20); BUN (Urea Nitrogen) 36 mg/dL (8.9-20.6); Calc. Creatinine Clearance 21 mL/min (70-130); Calcium 8.5 mg/dL (7.8-10.44); Carbon Dioxide 25 mmol/L (22-29); Chloride 98 mmol/L (98-107); Estimated GFR-MDRD 13; Glucose 86 mg/dL (70-105); Potassium 6.2 mmol/L (3.5-5.1); Sodium 133 mmol/L (136-145)
--- NOTE | 2020-09-22 05:25 | PRG ---
DATE OF SERVICE: 09/21/2020 SUBJECTIVE: Patient was seen and examined at bedside and overnight events noted. Patient denies any shortness of breath or chest pain or palpitation. No history of nausea or vomiting or diarrhea or fever or chills or cramps. OBJECTIVE: General: This is a well-built male, in no acute distress. Vital Signs: Temperature 99.5. Heart Rate 87. Respiratory rate 20. Blood pressure 170/119. HEENT: Atraumatic, normocephalic. Oral mucosa is moist. Neck: Supple. Cardiovascular: S1, S2 heard. Rate and rhythm regular. Respiratory: Clear to auscultation. Gastrointestinal: Abdomen is soft. Musculoskeletal: No tenderness. No edema. Dermatologic: No skin rash. Neurologic: Alert and awake and oriented x3. No focal neurologic deficits. Moving all the extremities. Psychiatric: Mood and affect normal. LABORATORY DATA: Potassium 4.6, BUN is 26, and creatinine 5.03. ASSESSMENT AND PLAN: 1. End-stage renal disease. Continue dialysis. 2. Edema, controlled. 3. Hypertension. 4. Anemia of chronic disease. 5. Continue antibiotics. We will continue dialysis as tolerated. Prognosis is guarded. Job ID: [id number]
[2020-09-22] MEDS: Heparin 5,000 UNITS/ML VIAL SC SCH ×3 (08:56→21:01)
[2020-09-22] MEDS ORDERED: Non-Formulary Item 1 EACH (Esomeprazole Magnesium [Nexium] 20 MG Capsule.Dr) PO SCH (09:00)
[2020-09-22] MEDS ORDERED: Bisacodyl 5 MG TAB PO SCH (09:30)
[2020-09-22] MEDS ORDERED: Polyethylene Glycol 3350 17 GM Packet PO SCH (09:30)
[2020-09-22 09:32] LABS: Vancomycin, Random 20.4 ug/mL (See Comment)
[2020-09-22] MEDS: diphenhydrAMINE 50 MG/ML VIAL IVP PRN (10:07)
--- NOTE | 2020-09-22 10:41 | PRG ---
DATE OF SERVICE: 09/22/2020 SUBJECTIVE: Patient was seen and examined at bedside and overnight events noted. Patient denies any shortness of breath or chest pain or palpitation. No history of nausea or vomiting or diarrhea or fever or chills or cramps. OBJECTIVE: GENERAL: This is a well-built male, in no apparent distress. VITAL SIGNS: Temperature 98.2. Heart rate 80. Respiratory rate 16. Blood pressure 132/80. HEENT: Atraumatic, normocephalic. Oral mucosa is moist. NECK: Supple. CARDIOVASCULAR: S1, S2 heard. Rate and rhythm regular. RESPIRATORY: Clear to auscultation. GASTROINTESTINAL: Abdomen is soft. MUSCULOSKELETAL: No tenderness. No edema. DERMATOLOGIC: No skin rash. NEUROLOGIC: Alert and awake and oriented x3. No focal neurologic deficits. Moving all the extremities. PSYCHIATRIC: Mood and affect normal. LABORATORY DATA: Potassium is 6.2, BUN is 36, and creatinine 6.4. ASSESSMENT AND PLAN: 1. End-stage renal disease. Continue dialysis. 2. Hyperkalemia. Limit potassium. 3. Edema. 4. Hypertension. 5. Anemia of chronic disease. Continue low-potassium diet. We will have dialysis. The patient is seen during dialysis, tolerating well. Job ID: [id number]
--- NOTE | 2020-09-22 13:06 | CON ---
NEUROLOGY CONSULTATION DATE OF CONSULTATION: 09/22/2020 REASON FOR CONSULTATION: Altered mental status/dizziness/weakness, rule out TIA. HISTORY OF PRESENT ILLNESS: Mr. Martínez is a 25-year-old male with medical history significant for end-stage renal disease, on hemodialysis, prosthetic valve, recent MRSA bacteremia, was discharged 4 days ago with antibiotics, presented again on 09/20/2020 with drowsiness and altered mental status. Per the patient, he went to the dialysis unit and felt extremely weak, so decided to come to the emergency room for further evaluation. The patient does describe weakness and confusion at the time of presentation, and bilateral weakness in the lower extremity, but denies focal weakness, focal paresthesias, nausea, vomiting, headache associated with the episode. Currently, he is alert and oriented x3 and is back to the baseline. He denies any focal deficits at this time. Neurology consulted to evaluate for TIA. REVIEW OF SYSTEMS: All systems were reviewed and were negative except the pertinent positives and negatives mentioned in the HPI. PAST MEDICAL HISTORY: Anemia of chronic disease; chronic renal insufficiency, on hemodialysis; history of rejection of renal transplant; eczema. PAST SURGICAL HISTORY: Prosthetic mitral valve placed, right kidney transplant, ALLERGIES: Loracarbef SOCIAL HISTORY: The patient uses marijuana. He is disable. Drinks alcohol occasionally. Vital Signs & Weight: Vital Signs (12 hours) Temp Pulse Resp BP Pulse Ox 09/21/20 15:56 98.8 F 97 22 H 135/86 93 L 09/21/20 12:45 98.8 F 87 24 H 128/72 92 L 09/21/20 09:08 85 Weight Weight 188 lb 0.869 oz I&O: 09/20/20 09/21/20 09/22/20 06:59 06:59 06:59 Intake Total 1000 2080 Balance 1000 2080 Additional Labs: Accuchecks 09/21/20 09/21/20 09/20/20 06:09 00:22 22:33 POC Glucose 84 102 H 113 H 09/20/20 20:34 POC Glucose 121 H Hospitalist ROS - Medication Medications: Active Medications Generic Name Dose Route Start Last Admin Trade Name Freq PRN Reason Stop Dose Admin Acetaminophen 650 mg 09/20/20 20:16 09/20/20 21:40 Acetaminophen 325 Mg Tab PO 650 mg Q4H PRN Administration Headache/Fever/Mild Pain (1-3) Clonidine 0.3 mg 09/21/20 09:00 09/21/20 16:04 Clonidine 0.3 Mg Tab PO 0.3 mg TID ALANNA Administration Diphenhydramine HCl 25 mg 09/21/20 16:16 09/21/20 16:33 Diphenhydramine 25 Mg Cap PO 25 mg Q4H PRN Administration Itching Duloxetine HCl 60 mg 09/21/20 09:00 09/21/20 09:09 Duloxetine 60 Mg Cap PO 60 mg DAILY ALANNA Administration Epoetin John-epbx 10,000 unit 09/20/20 16:30 09/20/20 21:33 Epoetin John-Epbx (Esrd) 10,000 Unit/Ml Vial IVP Not Given MoWeFr ALANNA Gabapentin 100 mg 09/21/20 09:00 09/21/20 09:10 Gabapentin 100 Mg Cap PO 100 mg BID ALANNA Administration Heparin Sodium (Porcine) 5,000 units 09/20/20 21:00 09/21/20 16:11 Heparin 5,000 Units/Ml Vial SC Not Given TID ALANNA Hydralazine HCl 100 mg 09/21/20 09:00 09/21/20 16:03 Hydralazine 25 Mg Tab PO 100 mg TID ALANNA Administration Hydromorphone HCl 1 mg 09/21/20 12:07 09/21/20 13:01 Hydromorphone 2 Mg Tab PO 1 mg Q4H PRN Administration Moderate to Severe Pain (6-10) Piperacillin Sod/Tazobactam 100 mls @ 200 mls/hr 09/21/20 10:00 09/21/20 18:11 Sod 2.25 gm/ Sodium Chloride IVPB 100 mls 0200,1000,1800 ALANNA Administration Labetalol HCl 600 mg 09/21/20 09:00 09/21/20 09:08 Labetalol 100 Mg Tab PO 600 mg BID ALANNA Administration Nifedipine 90 mg 09/21/20 09:00 09/21/20 09:09 Nifedipine Xl 90 Mg Tab PO 90 mg BID ALANNA Administration Ondansetron HCl 4 mg 09/21/20 18:18 09/21/20 18:38 Ondansetron Pf 4 Mg/2 Ml Vial IVP 4 mg Q6H PRN Administration Nausea/Vomiting Sodium Chloride 10 ml 09/21/20 09:00 09/21/20 09:17 Flush - Normal Saline 10 Ml Syringe IVF 10 ml Q12HR ALANNA Administration Sodium Chloride 10 ml 09/21/20 07:00 09/21/20 09:12 Flush - Normal Saline 10 Ml Syringe IVF 10 ml PRN PRN Administration Saline Flush - Exam General Appearance: awake alert, ill appearing Eye: PERRL, anicteric sclera Neck: supple, symmetric, no JVD, no lymphadenopathy Heart: RRR, no murmur, no gallops, normal peripheral pulses Respiratory: no wheezes, no rales, no ronchi, normal chest expansion Gastrointestinal: soft, non-distended, normal bowel sounds, tender to palpation (No rebound tenderness or guarding) Extremities: no cyanosis, no clubbing, 1+ LE edema Musculoskeletal: generalized weakness Psychiatric: A&O x 3, flat affect Neurologic: Mental status, the patient is alert and oriented to person, place, and time. Recent and remote memory, intact. Speech is clear. Cranial nerves 2 through 12 intact. Motor, muscle tone and bulk are normal. Strength 5/5 bilaterally. Sensory intact. Cerebellar, finger-nose testing intact. Gait deferred due to patient's safety reason. DATA REVIEWED: Labs were reviewed, which were significant for hemoglobin of 8.1, hematocrit of 24.7, and chronic kidney disease with BUN of 48 and creatinine of 7.89. The patient was undergoing hemodialysis at the time of examination. Lab results: WBC 5.9 thou/uL (4.8-10.8) 09/20/20 12:43 Hgb 8.1 g/dL (14.0-18.0) L 09/20/20 12:43 Hct 24.7 % (42.0-52.0) L 09/20/20 12:43 MCV 97.1 fL (78.0-98.0) 09/20/20 12:43 Plt Count 97 thou/uL (130-400) L 09/20/20 12:43 Neutrophils % 63.8 % (42.0-75.0) 09/20/20 12:43 Sodium 133 mmol/L (136-145) L 09/20/20 12:43 Potassium 6.7 mmol/L (3.5-5.1) H* 09/20/20 12:43 Chloride 95 mmol/L (98-107) L 09/20/20 12:43 Carbon Dioxide 31 mmol/L (22-29) H 09/20/20 12:43 BUN 44 mg/dL (8.9-20.6) H 09/20/20 12:43 Creatinine 7.69 mg/dL (0.7-1.3) H 09/20/20 12:43 Glucose 87 mg/dL (70-105) 09/20/20 12:43 Calcium 8.0 mg/dL (7.8-10.44) 09/20/20 12:43 Total Bilirubin 1.0 mg/dL (0.2-1.2) 09/20/20 12:43 AST 30 U/L (5-34) 09/20/20 12:43 ALT 17 U/L (8-55) 09/20/20 12:43 Alkaline Phosphatase 168 U/L (40-110) H 09/20/20 12:43 Serum Total Protein 7.6 g/dL (6.0-8.3) 09/20/20 12:43 Albumin 3.3 g/dL (3.5-5.0) L 09/20/20 12:43 ASSESSMENT AND PLAN: Mr. Estee Martínez is a 25-year-old male who was consulted because of an episode of weakness to rule out transient ischemic attack and they considered MRI of the brain to rule out acute intracranial process. Altered mental status seems to be multifactorial secondary to metabolic versus infectious etiology. Intracranial process seems less likely but cannot be completely more ruled out. Consider MRI of the brain to rule out acute intracranial process. Neuro checks every 4 hours. Continue home medications. Continue medical management per primary team and Nephrology. PT/OT/Speech. Deep venous thrombosis prophylaxis. We will continue to follow. Thank you for the consult. Job ID: [id number] [id number]
[2020-09-22] MEDS: cloNIDine 0.3 MG TAB PO SCH ×3 (13:55→20:45)
[2020-09-22] MEDS: Gabapentin 100 MG CAP PO SCH ×2 (13:59→20:46)
[2020-09-22] MEDS: DULoxetine 60 MG CAP PO SCH (13:59)
[2020-09-22] MEDS: Labetalol 100 MG TAB PO SCH ×2 (14:00→20:59)
[2020-09-22] MEDS: hydrALAZINE 25 MG TAB PO SCH ×4 (14:00→21:00)
[2020-09-22] MEDS: NIFEdipine XL 90 MG TAB PO SCH ×2 (14:01→20:45)
[2020-09-22] MEDS: Sevelamer Carbonate 800 MG TAB PO SCH ×2 (14:05→17:05)
[2020-09-22] MEDS: EPOETIN ALFA-EPBX (ESRD) 10,000 UNIT/ML VIAL IVP SCH (14:06)
[2020-09-22] MEDS: HYDROmorphone 2 MG TAB PO PRN (18:38)
[2020-09-22] MEDS: Morphine 2 MG/ML VIAL SLOW IVP PRN (20:38)
[2020-09-22] MEDS: Amitriptyline HCl 100 MG TAB PO SCH (20:46)
[2020-09-22] MEDS: Senokot S 8.6-50 MG TAB PO SCH (20:47)
[2020-09-22] MEDS ORDERED: Fentanyl 100 MCG/2 ML VIAL SLOW IVP PRN (23:11)
[2020-09-23 00:19] LABS: Lactic Acid 1.1 mmol/L (0.5-2.2)
[2020-09-23 00:26] LABS: ALT (SGPT) 18 U/L (8-55); AST (SGOT) 21 U/L (5-34); Albumin 3.2 g/dL (3.5-5.0); Alkaline Phosphatase 148 U/L (40-110); Bilirubin, Direct 0.6 mg/dL (0.1-0.3); Bilirubin, Total 0.9 mg/dL (0.2-1.2); Lipase 15 U/L (8-78); Protein, Total 7.2 g/dL (6.0-8.3)
[2020-09-23] MEDS: diphenhydrAMINE 25 MG CAP PO PRN (02:33)
[2020-09-23] MEDS: Morphine 2 MG/ML VIAL SLOW IVP PRN ×4 (05:49→20:33)
--- NOTE | 2020-09-23 07:52 | PDOC.HOSPP ---
- Subjective Encounter Date: 09/22/20 Encounter Time: 11:15 Subjective: Patient up in bed complains of some abdominal pain. - Objective Vital Signs & Weight: Vital Signs (12 hours) Temp Pulse Resp BP BP Pulse Ox 09/23/20 04:30 100 09/23/20 04:00 98.9 F 93 18 131/78 98 09/23/20 00:40 77 108/65 09/22/20 21:00 82 159/98 H 09/22/20 20:59 86 159/98 H 09/22/20 20:45 85 159/98 H 09/22/20 20:00 98.9 F 82 20 159/92 H 100 Weight Weight 188 lb 0.869 oz I&O: 09/22/20 09/23/20 09/24/20 06:59 06:59 05:59 Intake Total 2280 601 1066 Output Total 4500 Balance 2280 -3899 1066 Result Diagrams: 09/22/20 04:08 09/22/20 04:08 Additional Labs: Accuchecks 09/23/20 09/22/20 09/22/20 06:07 20:28 17:11 POC Glucose 96 87 82 09/22/20 09/22/20 09/21/20 11:05 04:48 20:26 POC Glucose 104 H 79 95 09/21/20 09/21/20 09/21/20 16:54 08:39 04:07 POC Glucose 91 84 98 09/21/20 09/21/20 02:57 02:56 POC Glucose 76 68 L Hospitalist ROS - Review of Systems Respiratory: denies: cough, dry, shortness of breath, hemoptysis, SOB with excertion, pleuritic pain, sputum, wheezing, other Cardiovascular: denies: chest pain, palpitations, orthopnea, paroxysmal noc. dyspnea, edema, light headedness, other Gastrointestinal: reports: abdominal pain Genitourinary: denies: dysuria, frequency, incontinence, hematuria, retention, other - Medication Medications: Active Medications Generic Name Dose Route Start Last Admin Trade Name Freq PRN Reason Stop Dose Admin Acetaminophen 650 mg 09/20/20 20:16 09/21/20 20:46 Acetaminophen 325 Mg Tab PO 650 mg Q4H PRN Administration Headache/Fever/Mild Pain (1-3) Amitriptyline HCl 100 mg 09/21/20 21:00 09/22/20 20:46 Amitriptyline Hcl 100 Mg Tab PO 100 mg QPM ALANNA Administration Clonidine 0.3 mg 09/21/20 09:00 09/22/20 20:45 Clonidine 0.3 Mg Tab PO 0.3 mg TID ALANNA Administration Diphenhydramine HCl 25 mg 09/21/20 16:16 09/23/20 02:33 Diphenhydramine 25 Mg Cap PO 25 mg Q4H PRN Administration Itching Diphenhydramine HCl 25 mg 09/22/20 08:58 09/22/20 10:07 Diphenhydramine 50 Mg/Ml Vial IVP 25 mg DAILY PRN Administration Itching Duloxetine HCl 60 mg 09/21/20 09:00 09/22/20 13:59 Duloxetine 60 Mg Cap PO 60 mg DAILY ALANNA Administration Epoetin John-epbx 10,000 unit 09/20/20 16:30 09/22/20 14:06 Epoetin John-Epbx (Esrd) 10,000 Unit/Ml Vial IVP 10,000 unit MoWeFr [facility] Administration Gabapentin 100 mg 09/21/20 09:00 09/22/20 20:46 Gabapentin 100 Mg Cap PO 100 mg BID [facility] Administration Heparin Sodium (Porcine) 5,000 units 09/20/20 21:00 09/22/20 21:01 Heparin 5,000 Units/Ml Vial SC Not Given TID [facility] Hydralazine HCl 100 mg 09/21/20 09:00 09/22/20 21:00 Hydralazine 25 Mg Tab PO 100 mg TID [facility] Administration Hydromorphone HCl 1 mg 09/21/20 12:07 09/22/20 18:38 Hydromorphone 2 Mg Tab PO 1 mg Q4H PRN Administration Moderate to Severe Pain (6-10) Labetalol HCl 600 mg 09/21/20 09:00 09/22/20 20:59 Labetalol 100 Mg Tab PO 600 mg BID [facility] Administration Morphine Sulfate 2 mg 09/22/20 18:50 09/23/20 05:49 Morphine 2 Mg/Ml Vial SLOW IVP 2 mg Q4H PRN Administration Breakthrough Pain Nifedipine 90 mg 09/21/20 09:00 09/22/20 20:45 Nifedipine Xl 90 Mg Tab PO 90 mg BID [facility]ANNA Administration Ondansetron HCl 4 mg 09/21/20 18:18 09/21/20 18:38 Ondansetron Pf 4 Mg/2 Ml Vial IVP 4 mg Q6H PRN Administration Nausea/Vomiting Pantoprazole Sodium 40 mg 09/22/20 09:00 09/22/20 14:01 Pantoprazole 40 Mg Tab PO 40 mg DAILY ALANNA Administration Senna/Docusate Sodium 1 tab 09/22/20 21:00 09/22/20 20:47 Senokot S 8.6-50 Mg Tab PO Not Given BID ALANNA Sevelamer Carbonate 2,400 mg 09/22/20 12:00 09/22/20 17:05 Sevelamer Carbonate 800 Mg Tab PO 2,400 mg TID-WM ALANNA Administration Sodium Chloride 10 ml 09/21/20 09:00 09/22/20 20:47 Flush - Normal Saline 10 Ml Syringe IVF 10 ml Q12HR ALANNA Administration Sodium Chloride 10 ml 09/21/20 07:00 09/21/20 09:12 Flush - Normal Saline 10 Ml Syringe IVF 10 ml PRN PRN Administration Saline Flush - Exam Neck: negative: supple, symmetric, no JVD, no thyromegaly, no lymphadenopathy, no carotid bruit, JVD Heart: negative: RRR, no murmur, no gallops, no rubs, normal peripheral pulses, irregular, diminshed peripheral pulses, murmur present, II/IV, III/IV Respiratory: negative: CTAB, no wheezes, no rales, no ronchi, normal chest expansion, no tachypnea, normal percussion, rales, rhonchi, tachypneic, wheezes Gastrointestinal: soft, normal bowel sounds Gastrointestinal - other findings: Distended abdomen Extremities: negative: no cyanosis, no clubbing, no edema, 1+ LE edema, 2+ LE edema, clubbing Hosp A/P (1) Abdominal pain Code(s): R10.9 - UNSPECIFIED ABDOMINAL PAIN Status: Acute (2) Bacteremia Code(s): R78.81 - BACTEREMIA Status: Acute (3) MRSA bacteremia Code(s): R78.81 - BACTEREMIA; B95.62 - METHICILLIN RESIS STAPH INFCT CAUSING DISEASES CLASSD ELSWHR Status: Acute (4) ESRD (end stage renal disease) on dialysis Code(s): N18.6 - END STAGE RENAL DISEASE; Z99.2 - DEPENDENCE ON RENAL DIALYSIS Status: Chronic (5) H/O kidney transplant Status: Chronic - Plan We will start patient on gentamicin and vancomycin. Per last discharge summary patient was supposed to be on gentamicin until September 22 and vancomycin until October 15. Starting September 23 patient will start rifampin 300 mg twice a day until October 15. However this patient did miss a few doses of gentamicin. I will continue gentamicin for the next couple days and then switch over to rifampin. Patient may require paracentesis.
[2020-09-23] MEDS: Heparin 5,000 UNITS/ML VIAL SC SCH ×3 (08:56→21:38)
[2020-09-23] MEDS: Sevelamer Carbonate 800 MG TAB PO SCH ×3 (09:03→15:33)
[2020-09-23] MEDS: DULoxetine 60 MG CAP PO SCH (09:04)
[2020-09-23] MEDS: NIFEdipine XL 90 MG TAB PO SCH ×2 (09:04→21:36)
[2020-09-23] MEDS: Labetalol 100 MG TAB PO SCH ×2 (09:04→21:35)
[2020-09-23] MEDS: Gabapentin 100 MG CAP PO SCH ×2 (09:04→21:36)
[2020-09-23] MEDS: cloNIDine 0.3 MG TAB PO SCH ×3 (09:05→21:36)
[2020-09-23] MEDS: hydrALAZINE 25 MG TAB PO SCH ×3 (09:05→21:36)
[2020-09-23] MEDS: Senokot S 8.6-50 MG TAB PO SCH ×2 (09:05→21:35)
[2020-09-23] MEDS: HYDROmorphone 2 MG TAB PO PRN ×2 (12:12→23:25)
[2020-09-23] MEDS: diphenhydrAMINE 50 MG/ML VIAL IVP PRN ×2 (12:18→21:04)
--- NOTE | 2020-09-23 14:32 | PDOC.NEPPN ---
- Subjective Encounter Date: 09/23/20 Subjective: Patient is seen and examined in the room. He is complaining of itching. - Objective Vital Signs & Weight: Vital Signs (12 hours) Temp Pulse Resp BP Pulse Ox 09/23/20 11:32 98.1 F 81 18 100/60 95 09/23/20 08:58 98.6 F 90 16 154/103 H 99 09/23/20 04:30 100 09/23/20 04:00 98.9 F 93 18 131/78 98 Weight Weight 184 lb 8.43 oz I&O: 09/22/20 09/23/20 09/24/20 06:59 06:59 05:59 Intake Total 2280 601 1066 Output Total 4500 Balance 2280 -3899 1066 Result Diagrams: 09/23/20 15:39 09/22/20 04:08 Additional Labs: Accuchecks 09/23/20 09/23/20 09/22/20 10:47 06:07 20:28 POC Glucose 91 96 87 09/22/20 09/22/20 09/22/20 17:11 11:05 04:48 POC Glucose 82 104 H 79 09/21/20 09/21/20 09/21/20 20:26 16:54 08:39 POC Glucose 95 91 84 09/21/20 09/21/20 09/21/20 04:07 02:57 02:56 POC Glucose 98 76 68 L Nephrology ROS - Review of Systems Skin: reports: other (Itching) Other: Review of systems Gen.: No fever, no chills All the 14 systems reviewed except for the ones mentioned above are negative - Medication Medications: Active Medications Generic Name Dose Route Start Last Admin Trade Name Freq PRN Reason Stop Dose Admin Acetaminophen 650 mg 09/20/20 20:16 09/21/20 20:46 Acetaminophen 325 Mg Tab PO 650 mg Q4H PRN Administration Headache/Fever/Mild Pain (1-3) Amitriptyline HCl 100 mg 09/21/20 21:00 09/22/20 20:46 Amitriptyline Hcl 100 Mg Tab PO 100 mg QPM ALANNA Administration Clonidine 0.3 mg 09/21/20 09:00 09/23/20 09:05 Clonidine 0.3 Mg Tab PO 0.3 mg TID [facility] Administration Diphenhydramine HCl 25 mg 09/21/20 16:16 09/23/20 02:33 Diphenhydramine 25 Mg Cap PO 25 mg Q4H PRN Administration Itching Diphenhydramine HCl 25 mg 09/22/20 08:58 09/23/20 12:18 Diphenhydramine 50 Mg/Ml Vial IVP 25 mg DAILY PRN Administration Itching Duloxetine HCl 60 mg 09/21/20 09:00 09/23/20 09:04 Duloxetine 60 Mg Cap PO 60 mg DAILY [facility] Administration Epoetin John-epbx 10,000 unit 09/20/20 16:30 09/22/20 14:06 Epoetin John-Epbx (Esrd) 10,000 Unit/Ml Vial IVP 10,000 unit MoWeFr [facility] Administration Gabapentin 100 mg 09/21/20 09:00 09/23/20 09:04 Gabapentin 100 Mg Cap PO 100 mg BID [facility] Administration Heparin Sodium (Porcine) 5,000 units 09/20/20 21:00 09/23/20 08:56 Heparin 5,000 Units/Ml Vial SC Not Given TID [facility] Hydralazine HCl 100 mg 09/21/20 09:00 09/23/20 09:05 Hydralazine 25 Mg Tab PO 100 mg TID [facility] Administration Hydromorphone HCl 1 mg 09/21/20 12:07 09/23/20 12:12 Hydromorphone 2 Mg Tab PO 1 mg Q4H PRN Administration Moderate to Severe Pain (6-10) Labetalol HCl 600 mg 09/21/20 09:00 09/23/20 09:04 Labetalol 100 Mg Tab PO 600 mg BID [facility] Administration Morphine Sulfate 2 mg 09/22/20 18:50 09/23/20 14:07 Morphine 2 Mg/Ml Vial SLOW IVP 2 mg Q4H PRN Administration Breakthrough Pain Nifedipine 90 mg 09/21/20 09:00 09/23/20 09:04 Nifedipine Xl 90 Mg Tab PO 90 mg BID [facility] Administration Ondansetron HCl 4 mg 09/21/20 18:18 09/21/20 18:38 Ondansetron Pf 4 Mg/2 Ml Vial IVP 4 mg Q6H PRN Administration Nausea/Vomiting Pantoprazole Sodium 40 mg 09/22/20 09:00 09/23/20 09:05 Pantoprazole 40 Mg Tab PO 40 mg DAILY [facility] Administration Senna/Docusate Sodium 1 tab 09/22/20 21:00 09/23/20 09:05 Senokot S 8.6-50 Mg Tab PO 1 tab BID [facility] Administration Sevelamer Carbonate 2,400 mg 09/22/20 12:00 09/23/20 11:27 Sevelamer Carbonate 800 Mg Tab PO 2,400 mg TID-WM [facility]ANNA Administration Sodium Chloride 10 ml 09/21/20 09:00 09/23/20 09:05 Flush - Normal Saline 10 Ml Syringe IVF 10 ml Q12HR [facility]ANNA Administration Sodium Chloride 10 ml 09/21/20 07:00 09/21/20 09:12 Flush - Normal Saline 10 Ml Syringe IVF 10 ml PRN PRN Administration Saline Flush - Exam General Appearance: awake alert General - other findings: Patient is not in pain, complains of itching Eye: PERRL ENT: normocephalic atraumatic Neck: supple, no lymphadenopathy Respiratory: no tachypnea Respiratory - other findings: air entry equal bilateral, no crackles or wheezing Cardiovascular: RRR, no murmur, no rubs Gastrointestinal: soft, non-tender, normal bowel sounds, no guarding Gastrointestinal - other findings: Distended Extremities: no cyanosis Extremities - other findings: 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1) H 09/22/20 04:08 Chloride 98 mmol/L (98-107) 09/22/20 04:08 Carbon Dioxide 25 mmol/L (22-29) 09/22/20 04:08 BUN 36 mg/dL (8.9-20.6) H 09/22/20 04:08 Creatinine 6.46 mg/dL (0.7-1.3) H 09/22/20 04:08 Glucose 86 mg/dL (70-105) 09/22/20 04:08 Lactic Acid 1.1 mmol/L (0.5-2.2) 09/22/20 23:51 Calcium 8.5 mg/dL (7.8-10.44) 09/22/20 04:08 Total Bilirubin 0.9 mg/dL (0.2-1.2) 09/22/20 23:51 AST 21 U/L (5-34) 09/22/20 23:51 ALT 18 U/L (8-55) 09/22/20 23:51 Alkaline Phosphatase 148 U/L (40-110) H 09/22/20 23:51 Serum Total Protein 7.2 g/dL (6.0-8.3) 09/22/20 23:51 Albumin 3.2 g/dL (3.5-5.0) L 09/22/20 23:51 Lipase 15 U/L (8-78) 09/22/20 23:51 Sodium 133 mmol/L (136-145) L 09/22/20 04:08 Potassium 6.2 mmol/L (3.5-5.1) H 09/22/20 04:08 Chloride 98 mmol/L (98-107) 09/22/20 04:08 Carbon Dioxide 25 mmol/L (22-29) 09/22/20 04:08 Anion Gap 16 mmol/L (-20) 09/22/20 04:08 BUN 36 mg/dL (8.9-20.6) H 09/22/20 04:08 Creatinine 6.46 mg/dL (0.7-1.3) H 09/22/20 04:08 Glucose 86 mg/dL (70-105) 09/22/20 04:08 Calcium 8.5 mg/dL (7.8-10.44) 09/22/20 04:08 Magnesium 1.9 mg/dL (1.6-2.6) 09/21/20 03:30 Albumin 3.2 g/dL (3.5-5.0) L 09/22/20 23:51 Nephrology AP PN - Plan Assessment and plan ESRD on hemodialysis Hypertension Anemia of chronic disease Pruritus MRSA bacteremia Patient scheduled hemodialysis Friday and Friday. He had hemodialysis yesterday. Patient is receiving gentamicin and vancomycin after dialysis. Pharmacy to dose antibiotics. We will increase Benadryl dose to every 8 hourly as per patient request, agree with alignment for pruritus. Monitor hemoglobin and hematocrit, transfuse PRBC as needed. Discussed with ROD
[2020-09-23] MEDS ORDERED: predniSONE 20 MG TAB PO SCH (15:15)
--- NOTE | 2020-09-23 15:20 | PDOC.HOSPP ---
- Subjective Encounter Date: 09/23/20 Subjective: The patient complains of abdominal pain and swelling. He is also complaining of generalized severe itching. - Objective Vital Signs & Weight: Vital Signs (12 hours) Temp Pulse Resp BP Pulse Ox 09/23/20 11:32 98.1 F 81 18 100/60 95 09/23/20 08:58 98.6 F 90 16 154/103 H 99 09/23/20 04:30 100 09/23/20 04:00 98.9 F 93 18 131/78 98 Weight Weight 184 lb 8.43 oz I&O: 09/22/20 09/23/20 09/24/20 06:59 06:59 05:59 Intake Total 2280 601 1066 Output Total 4500 Balance 2280 -3899 1066 Result Diagrams: 09/22/20 04:08 09/22/20 04:08 Additional Labs: Accuchecks 09/23/20 09/23/20 09/22/20 10:47 06:07 20:28 POC Glucose 91 96 87 09/22/20 09/22/20 09/22/20 17:11 11:05 04:48 POC Glucose 82 104 H 79 09/21/20 09/21/20 09/21/20 20:26 16:54 08:39 POC Glucose 95 91 84 09/21/20 09/21/20 09/21/20 04:07 02:57 02:56 POC Glucose 98 76 68 L Hospitalist ROS - Medication Medications: Active Medications Generic Name Dose Route Start Last Admin Trade Name Freq PRN Reason Stop Dose Admin Acetaminophen 650 mg 09/20/20 20:16 09/21/20 20:46 Acetaminophen 325 Mg Tab PO 650 mg Q4H PRN Administration Headache/Fever/Mild Pain (1-3) Amitriptyline HCl 100 mg 09/21/20 21:00 09/22/20 20:46 Amitriptyline Hcl 100 Mg Tab PO 100 mg QPM ALANNA Administration Clonidine 0.3 mg 09/21/20 09:00 09/23/20 09:05 Clonidine 0.3 Mg Tab PO 0.3 mg TID [facility] Administration Diphenhydramine HCl 25 mg 09/21/20 16:16 09/23/20 02:33 Diphenhydramine 25 Mg Cap PO 25 mg Q4H PRN Administration Itching Diphenhydramine HCl 25 mg 09/22/20 08:58 09/23/20 12:18 Diphenhydramine 50 Mg/Ml Vial IVP 25 mg DAILY PRN Administration Itching Duloxetine HCl 60 mg 09/21/20 09:00 09/23/20 09:04 Duloxetine 60 Mg Cap PO 60 mg DAILY [facility] Administration Epoetin John-epbx 10,000 unit 09/20/20 16:30 09/22/20 14:06 Epoetin John-Epbx (Esrd) 10,000 Unit/Ml Vial IVP 10,000 unit MoWeFr [facility] Administration Gabapentin 100 mg 09/21/20 09:00 09/23/20 09:04 Gabapentin 100 Mg Cap PO 100 mg BID [facility] Administration Heparin Sodium (Porcine) 5,000 units 09/20/20 21:00 09/23/20 08:56 Heparin 5,000 Units/Ml Vial SC Not Given TID [facility] Hydralazine HCl 100 mg 09/21/20 09:00 09/23/20 09:05 Hydralazine 25 Mg Tab PO 100 mg TID [facility] Administration Hydromorphone HCl 1 mg 09/21/20 12:07 09/23/20 12:12 Hydromorphone 2 Mg Tab PO 1 mg Q4H PRN Administration Moderate to Severe Pain (6-10) Labetalol HCl 600 mg 09/21/20 09:00 09/23/20 09:04 Labetalol 100 Mg Tab PO 600 mg BID [facility] Administration Morphine Sulfate 2 mg 09/22/20 18:50 09/23/20 14:07 Morphine 2 Mg/Ml Vial SLOW IVP 2 mg Q4H PRN Administration Breakthrough Pain Nifedipine 90 mg 09/21/20 09:00 09/23/20 09:04 Nifedipine Xl 90 Mg Tab PO 90 mg BID [facility] Administration Ondansetron HCl 4 mg 09/21/20 18:18 09/21/20 18:38 Ondansetron Pf 4 Mg/2 Ml Vial IVP 4 mg Q6H PRN Administration Nausea/Vomiting Pantoprazole Sodium 40 mg 09/22/20 09:00 09/23/20 09:05 Pantoprazole 40 Mg Tab PO 40 mg DAILY [facility] Administration Senna/Docusate Sodium 1 tab 09/22/20 21:00 09/23/20 09:05 Senokot S 8.6-50 Mg Tab PO 1 tab BID [facility] Administration Sevelamer Carbonate 2,400 mg 09/22/20 12:00 09/23/20 11:27 Sevelamer Carbonate 800 Mg Tab PO 2,400 mg TID-WM [facility] Administration Sodium Chloride 10 ml 09/21/20 09:00 09/23/20 09:05 Flush - Normal Saline 10 Ml Syringe IVF 10 ml Q12HR [facility] Administration Sodium Chloride 10 ml 09/21/20 07:00 09/21/20 09:12 Flush - Normal Saline 10 Ml Syringe IVF 10 ml PRN PRN Administration Saline Flush - Exam General Appearance: awake alert ENT: normocephalic atraumatic, no oropharyngeal lesions Neck: supple, no JVD Respiratory: normal chest expansion, no tachypnea Neurological: cranial nerve grossly intact, no weakness Hosp A/P - Plan Hosp A/P (1) Abdominal pain Code(s): R10.9 - UNSPECIFIED ABDOMINAL PAIN Status: Acute (2) Bacteremia Code(s): R78.81 - BACTEREMIA Status: Acute (3) MRSA bacteremia Code(s): R78.81 - BACTEREMIA; B95.62 - METHICILLIN RESIS STAPH INFCT CAUSING D ISEASES CLASSD ELSWHR Status: Acute (4) ESRD (end stage renal disease) on dialysis Code(s): N18.6 - END STAGE RENAL DISEASE; Z99.2 - DEPENDENCE ON RENAL DIALYSIS Status: Chronic (5) H/O kidney transplant Status: Chronic - Plan 09/22: We will start patient on gentamicin and vancomycin. Per last discharge summary patient was supposed to be on gentamicin until September 22 and vancomycin until October 15. Starting September 23 patient will start rifampin 300 mg twice a day until October 15. However this patient did miss a few doses of gentamicin. I will continue gentamicin for the next couple days and then switch over to rifa mpin. Patient may require paracentesis. 09/23: Continue dialysis per nephrology. Antibiotics as above. Start prednisone 40 mg orally daily for severe eczema. Body lotion to avoid dry skin. Ultrasound of the abdomen and paracentesis if there is enough fluids.
[2020-09-23 15:53] LABS: Hemoglobin 7.4 g/dL (14.0-18.0); Platelet Count 79 thou/uL (130-400)
[2020-09-23 16:01] LABS: INR-International Normal Ratio 1.4; Prothrombin Time 17.5 sec (12.0-14.7)
[2020-09-23 16:02] LABS: PTT 71.6 sec (22.9-36.1)
[2020-09-23] MEDS: Amitriptyline HCl 100 MG TAB PO SCH (21:36)
[2020-09-24] MEDS: Morphine 2 MG/ML VIAL SLOW IVP PRN ×4 (01:37→21:21)
[2020-09-24] MEDS: cloNIDine 0.3 MG TAB PO SCH ×3 (09:05→21:18)
[2020-09-24] MEDS: diphenhydrAMINE 50 MG/ML VIAL IVP PRN ×2 (09:05→17:38)
[2020-09-24] MEDS: Sevelamer Carbonate 800 MG TAB PO SCH ×3 (09:06→17:38)
[2020-09-24] MEDS: hydrALAZINE 25 MG TAB PO SCH ×3 (09:06→21:18)
[2020-09-24] MEDS: Senokot S 8.6-50 MG TAB PO SCH ×2 (09:07→21:20)
[2020-09-24] MEDS: predniSONE 20 MG TAB PO SCH (09:07)
[2020-09-24] MEDS: DULoxetine 60 MG CAP PO SCH (09:08)
[2020-09-24] MEDS: NIFEdipine XL 90 MG TAB PO SCH ×2 (09:08→21:26)
[2020-09-24] MEDS ORDERED: Sodium Bicarbonate 2.5 MEQ/5 ML VIAL ONE (09:21)
[2020-09-24] MEDS ORDERED: Lidocaine 1% PF 5 ML VIAL ONE (09:21)
[2020-09-24] MEDS: Gabapentin 100 MG CAP PO SCH ×2 (10:35→21:19)
[2020-09-24] MEDS: Labetalol 100 MG TAB PO SCH ×2 (10:35→21:16)
[2020-09-24] MEDS: Heparin 5,000 UNITS/ML VIAL SC SCH ×3 (10:38→21:21)
--- NOTE | 2020-09-24 11:06 | ULT ---
Ultrasound-guided paracentesis: 09/24/2020 HISTORY: Symptomatic ascites FINDINGS: Informed consent obtained prior to the procedure. Preprocedural imaging demonstrated signif icant ascites throughout the abdomen and pelvis. Mid right abdomen/right upper quadrantprepped and draped in normal sterile fashion and anesthetized w ith 1% buffered lidocaine. With direct sonographic guidance, 5 [place] Yueh catheter is advanced into the ascites and removal of the stylet yielded brown/redfluid. 5.450 L were removed. The patient tolerated the procedure well. No postprocedural complications. IMPRESSION: Successful ultrasound-guided paracentesis yielding 5.450 L of brown/red fluid.
--- NOTE | 2020-09-24 14:20 | PDOC.NEPPN ---
- Subjective Encounter Date: 09/24/20 Subjective: Pt says his itching is better but still has intermittent itching. He is requesting to increase Benadryl frequency. Pt had paracentesis today-5.5 lts removed. - Objective Vital Signs & Weight: Vital Signs (12 hours) Temp Pulse Resp BP BP Pulse Ox 09/24/20 12:00 98.8 F 78 16 127/77 99 09/24/20 10:35 77 146/100 H 09/24/20 09:08 77 146/100 H 09/24/20 09:06 77 146/100 H 09/24/20 09:05 146/100 H 09/24/20 08:00 97.8 F 77 16 146/100 H 96 09/24/20 04:00 98.6 F 78 18 136/90 98 Weight Weight 187 lb 6.287 oz I&O: 09/23/20 09/24/20 09/25/20 07:59 06:59 06:59 Intake Total 240 Output Total Balance 240 Result Diagrams: 09/23/20 15:39 09/22/20 04:08 Additional Labs: Accuchecks 09/24/20 09/24/20 09/23/20 11:01 06:16 19:53 POC Glucose 108 H 95 95 09/23/20 09/21/20 16:30 10:59 POC Glucose 105 H 102 H Nephrology ROS - Review of Systems Skin: reports: other (Itching) Other: Review of systems Gen.: No fever, no chills All the 14 systems reviewed except for the ones mentioned above are negative - Medication Medications: Active Medications Generic Name Dose Route Start Last Admin Trade Name Judsonq PRN Reason Stop Dose Admin Acetaminophen 650 mg 09/20/20 20:16 09/21/20 20:46 Acetaminophen 325 Mg Tab PO 650 mg Q4H PRN Administration Headache/Fever/Mild Pain (1-3) Amitriptyline HCl 100 mg 09/21/20 21:00 09/23/20 21:36 Amitriptyline Hcl 100 Mg Tab PO 100 mg QPM ALANNA Administration Clonidine 0.3 mg 09/21/20 09:00 09/24/20 09:05 Clonidine 0.3 Mg Tab PO 0.3 mg TID ALANNA Administration Diphenhydramine HCl 25 mg 09/21/20 16:16 09/23/20 02:33 Diphenhydramine 25 Mg Cap PO 25 mg Q4H PRN Administration Itching Diphenhydramine HCl 25 mg 09/23/20 17:18 09/24/20 09:05 Diphenhydramine 50 Mg/Ml Vial IVP 25 mg Q8H PRN Administration Itching Duloxetine HCl 60 mg 09/21/20 09:00 09/24/20 09:08 Duloxetine 60 Mg Cap PO 60 mg DAILY ALANNA Administration Epoetin John-epbx 10,000 unit 09/20/20 16:30 09/22/20 14:06 Epoetin John-Epbx (Esrd) 10,000 Unit/Ml Vial IVP 10,000 unit MoWeFr ALANNA Administration Gabapentin 100 mg 09/21/20 09:00 09/24/20 10:35 Gabapentin 100 Mg Cap PO 100 mg BID ALANNA Administration Heparin Sodium (Porcine) 5,000 units 09/20/20 21:00 09/24/20 10:38 Heparin 5,000 Units/Ml Vial SC Not Given TID [facility] Hydralazine HCl 100 mg 09/21/20 09:00 09/24/20 09:06 Hydralazine 25 Mg Tab PO 100 mg TID ALANNA Administration Hydromorphone HCl 1 mg 09/21/20 12:07 09/23/20 23:25 Hydromorphone 2 Mg Tab PO 1 mg Q4H PRN Administration Moderate to Severe Pain (6-10) Labetalol HCl 600 mg 09/21/20 09:00 09/24/20 10:35 Labetalol 100 Mg Tab PO 600 mg BID ALANNA Administration Morphine Sulfate 2 mg 09/22/20 18:50 09/24/20 10:33 Morphine 2 Mg/Ml Vial SLOW IVP 2 mg Q4H PRN Administration Breakthrough Pain Nifedipine 90 mg 09/21/20 09:00 09/24/20 09:08 Nifedipine Xl 90 Mg Tab PO 90 mg BID ALANNA Administration Ondansetron HCl 4 mg 09/21/20 18:18 09/21/20 18:38 Ondansetron Pf 4 Mg/2 Ml Vial IVP 4 mg Q6H PRN Administration Nausea/Vomiting Pantoprazole Sodium 40 mg 09/22/20 09:00 09/24/20 09:08 Pantoprazole 40 Mg Tab PO 40 mg DAILY ALANNA Administration Prednisone 40 mg 09/24/20 08:00 09/24/20 09:07 Prednisone 20 Mg Tab PO 40 mg QAM-WM ALANNA Administration Senna/Docusate Sodium 1 tab 09/22/20 21:00 09/24/20 09:07 Senokot S 8.6-50 Mg Tab PO 1 tab BID ALANNA Administration Sevelamer Carbonate 2,400 mg 09/22/20 12:00 09/24/20 13:18 Sevelamer Carbonate 800 Mg Tab PO 2,400 mg TID-WM ALANNA Administration Sodium Chloride 10 ml 09/21/20 09:00 09/24/20 09:09 Flush - Normal Saline 10 Ml Syringe IVF 10 ml Q12HR ALANNA Administration Sodium Chloride 10 ml 09/21/20 07:00 09/21/20 09:12 Flush - Normal Saline 10 Ml Syringe IVF 10 ml PRN PRN Administration Saline Flush - Exam General - other findings: Pt has itching Eye: PERRL ENT: normocephalic atraumatic Neck: supple, no lymphadenopathy Respiratory: normal chest expansion Respiratory - other findings: air entry equal bilateral, no crackles or wheezing Cardiovascular: RRR, no murmur, no gallops Gastrointestinal: soft, non-tender, normal bowel sounds Gastrointestinal - other findings: less distended today Extremities - other findings: scratch dao, RUE AVF +, aneurysmal dilatations Musculoskeletal: normal strength PSYCH: normal affect, normal behavior Nephrology Results - Labs Result Diagrams: 09/23/20 15:39 09/22/20 04:08 Lab results: WBC 5.7 thou/uL (4.8-10.8) 09/22/20 04:08 Hgb 7.4 g/dL (14.0-18.0) L 09/23/20 15:39 Hct 22.4 % (42.0-52.0) L 09/23/20 15:39 MCV 97.2 fL (78.0-98.0) 09/22/20 04:08 Plt Count 79 thou/uL (130-400) L 09/23/20 15:39 Neutrophils % 59.3 % (42.0-75.0) 09/22/20 04:08 Sodium 133 mmol/L (136-145) L 09/22/20 04:08 Potassium 6.2 mmol/L (3.5-5.1) H 09/22/20 04:08 Chloride 98 mmol/L (98-107) 09/22/20 04:08 Carbon Dioxide 25 mmol/L (22-29) 09/22/20 04:08 BUN 36 mg/dL (8.9-20.6) H 09/22/20 04:08 Creatinine 6.46 mg/dL (0.7-1.3) H 09/22/20 04:08 Glucose 86 mg/dL (70-105) 09/22/20 04:08 Lactic Acid 1.1 mmol/L (0.5-2.2) 09/22/20 23:51 Calcium 8.5 mg/dL (7.8-10.44) 09/22/20 04:08 Total Bilirubin 0.9 mg/dL (0.2-1.2) 09/22/20 23:51 AST 21 U/L (5-34) 09/22/20 23:51 ALT 18 U/L (8-55) 09/22/20 23:51 Alkaline Phosphatase 148 U/L (40-110) H 09/22/20 23:51 Serum Total Protein 7.2 g/dL (6.0-8.3) 09/22/20 23:51 Albumin 3.2 g/dL (3.5-5.0) L 09/22/20 23:51 Lipase 15 U/L (8-78) 09/22/20 23:51 Sodium 133 mmol/L (136-145) L 09/22/20 04:08 Potassium 6.2 mmol/L (3.5-5.1) H 09/22/20 04:08 Chloride 98 mmol/L (98-107) 09/22/20 04:08 Carbon Dioxide 25 mmol/L (22-29) 09/22/20 04:08 Anion Gap 16 mmol/L (10-20) 09/22/20 04:08 BUN 36 mg/dL (8.9-20.6) H 09/22/20 04:08 Creatinine 6.46 mg/dL (0.7-1.3) H 09/22/20 04:08 Glucose 86 mg/dL (70-105) 09/22/20 04:08 Calcium 8.5 mg/dL (7.8-10.44) 09/22/20 04:08 Magnesium 1.9 mg/dL (1.6-2.6) 09/21/20 03:30 Albumin 3.2 g/dL (3.5-5.0) L 09/22/20 23:51 Nephrology AP PN - Plan Assessment and plan ESRD on hemodialysis Hypertension Anemia of chronic disease Pruritus MRSA bacteremia Anticipate dialysis in am. Increase Benadryl to Q6hrly. May need scheduled oral Atarax. Consider Gabapentin/lyrica if pt does not respond to antihistamines. currently on Gentamicin and Vancomycin with dialysis. Pt is requesting to be tested for liver disorder and wants to know why he has ascites. Discussed with RN and
--- NOTE | 2020-09-24 14:22 | PDOC.HOSPP ---
- Subjective Encounter Date: 09/24/20 Subjective: Status post ultrasound-guided paracentesis. The patient is feeling better today. - Objective Vital Signs & Weight: Vital Signs (12 hours) Temp Pulse Resp BP BP Pulse Ox 09/24/20 12:00 98.8 F 78 16 127/77 99 09/24/20 10:35 77 146/100 H 09/24/20 09:08 77 146/100 H 09/24/20 09:06 77 146/100 H 09/24/20 09:05 146/100 H 09/24/20 08:00 97.8 F 77 16 146/100 H 96 09/24/20 04:00 98.6 F 78 18 136/90 98 Weight Weight 187 lb 6.287 oz I&O: 09/23/20 09/24/20 09/25/20 07:59 06:59 06:59 Intake Total 240 Output Total Balance 240 Result Diagrams: 09/23/20 15:39 09/22/20 04:08 Additional Labs: Accuchecks 09/24/20 09/24/20 09/23/20 11:01 06:16 19:53 POC Glucose 108 H 95 95 09/23/20 09/21/20 16:30 10:59 POC Glucose 105 H 102 H Hospitalist ROS - Medication Medications: Active Medications Generic Name Dose Route Start Last Admin Trade Name Freq PRN Reason Stop Dose Admin Acetaminophen 650 mg 09/20/20 20:16 09/21/20 20:46 Acetaminophen 325 Mg Tab PO 650 mg Q4H PRN Administration Headache/Fever/Mild Pain (1-3) Amitriptyline HCl 100 mg 09/21/20 21:00 09/23/20 21:36 Amitriptyline Hcl 100 Mg Tab PO 100 mg QPM ALANNA Administration Clonidine 0.3 mg 09/21/20 09:00 09/24/20 09:05 Clonidine 0.3 Mg Tab PO 0.3 mg TID ALANNA Administration Diphenhydramine HCl 25 mg 09/21/20 16:16 09/23/20 02:33 Diphenhydramine 25 Mg Cap PO 25 mg Q4H PRN Administration Itching Diphenhydramine HCl 25 mg 09/23/20 17:18 09/24/20 09:05 Diphenhydramine 50 Mg/Ml Vial IVP 25 mg Q8H PRN Administration Itching Duloxetine HCl 60 mg 09/21/20 09:00 09/24/20 09:08 Duloxetine 60 Mg Cap PO 60 mg DAILY ALANNA Administration Epoetin John-epbx 10,000 unit 09/20/20 16:30 09/22/20 14:06 Epoetin John-Epbx (Esrd) 10,000 Unit/Ml Vial IVP 10,000 unit MoWeFr ALANNA Administration Gabapentin 100 mg 09/21/20 09:00 09/24/20 10:35 Gabapentin 100 Mg Cap PO 100 mg BID ALANNA Administration Heparin Sodium (Porcine) 5,000 units 09/20/20 21:00 09/24/20 10:38 Heparin 5,000 Units/Ml Vial SC Not Given TID ALANNA Hydralazine HCl 100 mg 09/21/20 09:00 09/24/20 09:06 Hydralazine 25 Mg Tab PO 100 mg TID ALANNA Administration Hydromorphone HCl 1 mg 09/21/20 12:07 09/23/20 23:25 Hydromorphone 2 Mg Tab PO 1 mg Q4H PRN Administration Moderate to Severe Pain (6-10) Labetalol HCl 600 mg 09/21/20 09:00 09/24/20 10:35 Labetalol 100 Mg Tab PO 600 mg BID ALANNA Administration Morphine Sulfate 2 mg 09/22/20 18:50 09/24/20 10:33 Morphine 2 Mg/Ml Vial SLOW IVP 2 mg Q4H PRN Administration Breakthrough Pain Nifedipine 90 mg 09/21/20 09:00 09/24/20 09:08 Nifedipine Xl 90 Mg Tab PO 90 mg BID ALANNA Administration Ondansetron HCl 4 mg 09/21/20 18:18 09/21/20 18:38 Ondansetron Pf 4 Mg/2 Ml Vial IVP 4 mg Q6H PRN Administration Nausea/Vomiting Pantoprazole Sodium 40 mg 09/22/20 09:00 09/24/20 09:08 Pantoprazole 40 Mg Tab PO 40 mg DAILY ALANNA Administration Prednisone 40 mg 09/24/20 08:00 09/24/20 09:07 Prednisone 20 Mg Tab PO 40 mg QAM-WM ALANNA Administration Senna/Docusate Sodium 1 tab 09/22/20 21:00 09/24/20 09:07 Senokot S 8.6-50 Mg Tab PO 1 tab BID ALANNA Administration Sevelamer Carbonate 2,400 mg 09/22/20 12:00 09/24/20 13:18 Sevelamer Carbonate 800 Mg Tab PO 2,400 mg TID-WM ALANNA Administration Sodium Chloride 10 ml 09/21/20 09:00 09/24/20 09:09 Flush - Normal Saline 10 Ml Syringe IVF 10 ml Q12HR ALANNA Administration Sodium Chloride 10 ml 09/21/20 07:00 09/21/20 09:12 Flush - Normal Saline 10 Ml Syringe IVF 10 ml PRN PRN Administration Saline Flush - Exam Neck: supple, no JVD Heart: RRR Respiratory: normal chest expansion, no tachypnea Gastrointestinal: soft, non-tender, non-distended, normal bowel sounds Neurological: cranial nerve grossly intact, no focal deficits Hosp A/P - Plan Hosp A/P (1) Abdominal pain Code(s): R10.9 - UNSPECIFIED ABDOMINAL PAIN Status: Acute (2) Bacteremia Code(s): R78.81 - BACTEREMIA Status: Acute (3) MRSA bacteremia Code(s): R78.81 - BACTEREMIA; B95.62 - METHICILLIN RESIS STAPH INFCT CAUSING DISEASES CLASSD ELSWHR Status: Acute (4) ESRD (end stage renal disease) on dialysis Code(s): N18.6 - END STAGE RENAL DISEASE; Z99.2 - DEPENDENCE ON RENAL DIALYSIS Status: Chronic (5) H/O kidney transplant Status: Chronic - Plan 09/22: We will start patient on gentamicin and vancomycin. Per last discharge summary patient was supposed to be on gentamicin until September 22 and vancomycin until October 15. Starting September 23 patient will start rifampin 300 mg twice a day until October 15. However this patient did miss a few doses of gentamicin. I will continue gentamicin for the next couple days and then switch over to rifampin. Patient may require paracentesis. 09/23: Continue dialysis per nephrology. Antibiotics as above. Start prednisone 40 mg orally daily for severe eczema. Body lotion to avoid dry skin. Ultrasound of the abdomen and paracentesis if there is enough fluids. 09/24: 5 L of fluid were drained with paracentesis today. The patient is feeling better. Less itching was reported today. Continue HD per nephrology. Continue antibiotics as above.
[2020-09-24] MEDS: Amitriptyline HCl 100 MG TAB PO SCH (21:18)
[2020-09-25] MEDS: Morphine 2 MG/ML VIAL SLOW IVP PRN ×2 (00:47→08:12)
[2020-09-25] MEDS: diphenhydrAMINE 50 MG/ML VIAL IVP PRN ×2 (00:48→08:11)
[2020-09-25 09:21] LABS: Vancomycin, Random 9.4 ug/mL (See Comment)
[2020-09-25] MEDS: EPOETIN ALFA-EPBX (ESRD) 10,000 UNIT/ML VIAL IVP SCH (11:52)
[2020-09-25 12:25] VITALS: BP 145/93; TEMP 98.8
[2020-09-25] MEDS: Sevelamer Carbonate 800 MG TAB PO SCH ×2 (13:46→13:51)
[2020-09-25] MEDS: hydrALAZINE 25 MG TAB PO SCH ×2 (13:46→17:15)
[2020-09-25] MEDS: Senokot S 8.6-50 MG TAB PO SCH (13:46)
[2020-09-25] MEDS: NIFEdipine XL 90 MG TAB PO SCH (13:48)
[2020-09-25] MEDS: predniSONE 20 MG TAB PO SCH (13:48)
[2020-09-25] MEDS: Gabapentin 100 MG CAP PO SCH (13:49)
[2020-09-25] MEDS: DULoxetine 60 MG CAP PO SCH (13:49)
[2020-09-25] MEDS: Heparin 5,000 UNITS/ML VIAL SC SCH ×2 (13:50→17:14)
[2020-09-25] MEDS: cloNIDine 0.3 MG TAB PO SCH ×2 (13:50→17:13)
[2020-09-25] MEDS: Labetalol 100 MG TAB PO SCH (17:12)
--- NOTE | 2020-09-26 00:52 | DIS ---
DATE OF ADMISSION: 09/22/2020 DATE OF DISCHARGE: 09/25/2020 DISCHARGE DIAGNOSES: 1. End-stage renal disease, on hemodialysis. 2. Ascites. 3. Volume overload. 4. Abdominal pain. 5. Methicillin-resistant Staphylococcus aureus bacteremia. DISCHARGE MEDICATIONS: The patient will continue the admission medications without changes. HISTORY OF PRESENT ILLNESS AND HOSPITAL COURSE: The patient is a 25-year-old male with past medical history of end-stage renal disease on hemodialysis, bioprosthetic valve placement, and MRSA bacteremia, who presented to the hospital with complaints of abdominal pain and generalized weakness. The patient was found to be lethargic in the ER. The patient stated that since his recent discharge from the hospital, he was not able to attend dialysis due to feeling weak. The patient was found to be in a state of volume overload, and was admitted to the hospital for dialysis. He underwent hemodialysis per his usual schedule, which has led to improvement in his volume overload. His IV antibiotic regimen, which was started on his prior admission was continued. The patient underwent a therapeutic paracentesis with removal of 5 L of fluid. He was found to be anemic, but did not require any transfusion as his hemoglobin level remained stable, and above 7. He was discharged from the hospital in a stable condition. Job ID: [id number]
--- NOTE | 2020-09-26 11:28 | PRG ---
DATE OF SERVICE: 09/25/2020 SUBJECTIVE: This is a very pleasant 25-year-old gentleman being seen for end-stage renal disease. The patient denies any nausea, vomiting, or chest pain. PHYSICAL EXAMINATION: General: The patient is awake and alert. Vital Signs: Afebrile, pulse 75, breathing at 16, blood pressure 145/93. HEENT: Head normocephalic and atraumatic. Eyes intact, no ulcers. Nose intact, no ulcers. Ears intact, no ulcers. Neck: Supple. No JVD. Chest: Symmetrical and clear. Cardiovascular: Shows S1 and S2, no rub, no murmur. Gastrointestinal: Abdomen is soft, bowel sounds positive. Extremities: Show no edema or ulcers. Skin: Shows no rash or petechiae. Musculoskeletal: Shows no joint swelling or stiffness. Genitourinary: Shows no Pimentel or CVA tenderness. Neurologic: Motor intact. Cranial nerves intact. LABORATORY DATA: Labs reviewed. ASSESSMENT AND PLAN: 1. Stage 6 chronic kidney disease, plan dialysis. 2. Hypertension, stable. 3. Anemia, stable. 4. Medication based on GFR appropriate. Job ID: [id number]
--- NOTE | 2020-09-27 19:17 | EKG ---
Test Reason : ROUTINE Blood Pressure : / mmHG Vent. Rate : 085 BPM Atrial Rate : 085 BPM P-R Int : 184 ms QRS Dur : 094 ms QT Int : 402 ms P-R-T Axes : 040 043 039 degrees QTc Int : 478 ms Normal sinus rhythm Normal ECG Confirmed by HERI FERREIRA, DR. Zacarias ([id number]) on 09/27/2020 7:17:21 PM Referred By: NINA MAIN Confirmed By:DR. Rell LIRIANO MD
== END 2020-09-25 15:27 | disposition home or self-care (01) | DRG 640 ==
LOC: ERS 12:25 → 2NO 16:33 → OBSVTOIN 09-22 12:54
PROVIDERS: ADMIT Student in an Organized Health Care Education/Training Program; ATTEND Internal Medicine
PROC: 5A1D70Z Performance of Urinary Filtration, Intermittent, Less than 6 Hours Per Day (ICD-10-PCS; principal; 2020-09-22)
PROC: 0W9G3ZZ Drainage of Peritoneal Cavity, Percutaneous Approach (ICD-10-PCS; 2020-09-24)
DX: E87.70 Fluid overload, unspecified (principal); N18.6 End stage renal disease; R18.8 Other ascites; M31.0 Hypersensitivity angiitis; I42.9 Cardiomyopathy, unspecified; R78.81 Bacteremia; I12.0 Hypertensive chronic kidney disease with stage 5 chronic kidney disease or end stage renal disease; G93.40 Encephalopathy, unspecified; E87.1 Hypo-osmolality and hyponatremia; E87.2 Acidosis; E87.5 Hyperkalemia; Z20.828 Contact with and (suspected) exposure to other viral communicable diseases; E78.5 Hyperlipidemia, unspecified; D63.1 Anemia in chronic kidney disease; D69.6 Thrombocytopenia, unspecified; L29.9 Pruritus, unspecified; B95.62 Methicillin resistant Staphylococcus aureus infection as the cause of diseases classified elsewhere; Z99.2 Dependence on renal dialysis; Z95.2 Presence of prosthetic heart valve; E87.6 Hypokalemia
CPT/HCPCS: 36415; 36416; 49083; 71045; 74022; 74176; 80048; 80053; 80076; 80202; 82010; 82550; 83605; 83690; 83735; 85014; 85018; 85025; 85049; 85610; 85730; 86140; 86850; 86900; 86901; 87040; 90935; 93005; 93010; 96365; 96374; 96375; 96376; G0257; G0378; J1170; J1200; J1580; J1815; J2270; J2405; J2543; J3370; J3490; J7512; Q0163; Q5105

== ENCOUNTER 2020-09-27 19:48 | Emergency (ER) | payer OTHER ==
[2020-09-27 21:56] LABS: #Eosinphils 0.8 thou/uL (0.0-0.7); #Monocytes 0.6 thou/uL (0.11-0.59); #Neutrophils 3.9 thou/uL (1.40-6.50); %Basophils 0.3 % (0.0-1.0); %Eosinophils 12.5 % (0.0-10.0); %Lymphocytes 16.2 % (21.0-51.0); %Monocytes 9.6 % (0.0-10.0); %Neutrophils 61.3 % (42.0-75.0); Hemoglobin 7.5 g/dL (14.0-18.0); Mean Corpuscular HGB CONC 33.6 g/dL (32.0-36.0); Mean Corpuscular Hemoglobin 32.6 pg (27.0-31.0); Mean Platelet Volume 8.4 fL (7.4-10.4); Platelet Count 139 thou/uL (130-400); RBC Distribution Width 16.6 % (11.5-14.5); Red Blood Cell (RBC) Count 2.29 mill/uL (4.70-6.10); White Blood Cell (WBC) Count 6.4 thou/uL (4.8-10.8)
[2020-09-27 22:19] LABS: ALT (SGPT) 12 U/L (8-55); AST (SGOT) 14 U/L (5-34); Albumin 3.2 g/dL (3.5-5.0); Alkaline Phosphatase 162 U/L (40-110); Anion Gap 15 mmol/L (10-20); BUN (Urea Nitrogen) 19 mg/dL (8.9-20.6); Bilirubin, Total 0.9 mg/dL (0.2-1.2); Calc. Creatinine Clearance 0 mL/min (70-130); Calcium 8.5 mg/dL (7.8-10.44); Carbon Dioxide 32 mmol/L (22-29); Chloride 97 mmol/L (98-107); Estimated GFR-MDRD 22; Globulin 4.1 g/dL (2.4-3.5); Glucose 76 mg/dL (70-105); Potassium 4.6 mmol/L (3.5-5.1); Protein, Total 7.3 g/dL (6.0-8.3); Sodium 139 mmol/L (136-145)
== END 2020-09-28 00:32 | disposition home or self-care (01) ==
LOC: ERS 19:48
DX: R18.8 Other ascites (principal); I12.0 Hypertensive chronic kidney disease with stage 5 chronic kidney disease or end stage renal disease; N18.6 End stage renal disease; F41.9 Anxiety disorder, unspecified; Z99.2 Dependence on renal dialysis
CPT/HCPCS: 36415; 80053; 85025; 96372; 99284

== ENCOUNTER 2020-09-29 00:25 | Inpatient (IN) | payer OTHER ==
[2020-09-29 00:50] VITALS: BMI 24.7
[2020-09-29] MEDS: Morphine 2 MG/ML VIAL SLOW IVP PRN ×5 (02:30→20:41)
--- NOTE | 2020-09-29 03:16 | HP ---
REASON FOR ADMISSION: Abdominal pain. HISTORY OF PRESENT ILLNESS: This is a 25-year-old male patient, who is presenting for abdominal pain. History is going back to the past 48 hours. His abdomen became more distended. He is known to have history of ascites, this required to have paracentesis. His blood work did reveal worsening anemia. He was sent to us for hemodialysis in the morning and transfusion as per the recommendation of his hop strainer. I did review his records. Patient was recently in our hospital, discharged approximately four days ago. He came in with complaints of abdominal pain. He was documented to be noncompliant with his dialysis. During his stay, he did undergo hemodialysis. He underwent a therapeutic paracentesis with removal of 5 L of fluids. PAST MEDICAL HISTORY: 1. End-stage renal disease, on hemodialysis. 2. Bioprosthetic valve. 3. Recent MRSA bacteremia. 4. Anemia of chronic disease. 5. History of rejection of renal transplant. 6. Eczema. ALLERGIES: LORACARBEF. SOCIAL HISTORY: He drinks alcohol occasionally. Uses marijuana. FAMILY HISTORY: Negative for premature coronary artery disease. REVIEW OF SYSTEMS: All systems reviewed, except the above mentioned, found to be negative. PHYSICAL EXAMINATION: GENERAL: He is awake, alert, oriented, does not appear in distress. VITAL SIGNS: His blood pressure is 166/95; temperature is 98.7; and saturating 98%, using nasal cannula. HEENT: Head is nontraumatic and normocephalic. Pupils equal, reactive. Extraocular movements are intact. Nonicteric sclerae. Well-injected conjunctivae. Oral mucosa normal. Nasal mucosa normal. NECK: Supple. No adenopathy. No murmur. Thyroid is palpable. Trachea is midline. No supraclavicular adenopathy. HEART: S1, S2. Regular. No murmur. No gallop. No friction rubs. No displacement of PMI. LUNGS: Clear to auscultation bilaterally. ABDOMEN: Bowel sounds are positive. Abdomen is distended with shifting dullness. EXTREMITIES: No lower extremity edema. No cyanosis. NEUROLOGIC: Cranial nerves 2 through 12 are within normal limits. Normal motor function. Normal sensory function. Normal reflexes. LABORATORY DATA: Blood work shows WBC 5.8; hemoglobin 6.8, previously 7.5; and platelets of 128. INR 1.4 and PTT 71.6. Sodium 136, potassium 5.6, bicarb 29, creatinine 5.52, and AST 160. ASSESSMENT/PLAN: This is a 25-year-old male patient presenting with abdominal pain, most likely due to his chronic abdominal pain and worsening of his ascites. He was found to be anemic. GI: Patient has reaccumulation of his ascites, was scheduled for paracentesis, loaded him with IV morphine for pain control. Cardiac: Patient has high blood pressure. We will resume his antihypertensive agents. Patient has end-stage renal disease. Nephrology is aware of him and the plan is to transfuse him while he is on hemodialysis. For DVT prophylaxis, SCDs. For his bacteremia, he is on rifampin. We will continue with that. Job ID: [id number]
[2020-09-29] MEDS: Acetaminophen/Codeine 30-300mg Tablet PO PRN (04:31)
[2020-09-29] MEDS: Rifampin 300 MG CAP PO SCH ×2 (04:31→20:36)
[2020-09-29 06:26] LABS: #Eosinphils 0.8 thou/uL (0.0-0.7); #Lymphocytes 1.2 thou/uL (1.20-3.40); #Monocytes 0.6 thou/uL (0.11-0.59); #Neutrophils 3.6 thou/uL (1.40-6.50); %Basophils 0.5 % (0.0-1.0); %Eosinophils 13.7 % (0.0-10.0); %Lymphocytes 18.7 % (21.0-51.0); %Monocytes 9.1 % (0.0-10.0); Hemoglobin 7.1 g/dL (14.0-18.0); Mean Corpuscular HGB CONC 33.4 g/dL (32.0-36.0); Mean Corpuscular Volume 98.5 fL (78.0-98.0); Mean Platelet Volume 8.3 fL (7.4-10.4); Platelet Count 125 thou/uL (130-400); RBC Distribution Width 16.9 % (11.5-14.5); Red Blood Cell (RBC) Count 2.17 mill/uL (4.70-6.10); White Blood Cell (WBC) Count 6.2 thou/uL (4.8-10.8)
[2020-09-29 06:51] LABS: Anion Gap 17 mmol/L (10-20); BUN (Urea Nitrogen) 37 mg/dL (8.9-20.6); Calc. Creatinine Clearance 22 mL/min (70-130); Carbon Dioxide 31 mmol/L (22-29); Chloride 96 mmol/L (98-107); Estimated GFR-MDRD 13; Glucose 88 mg/dL (70-105); Potassium 6.2 mmol/L (3.5-5.1); Sodium 138 mmol/L (136-145)
[2020-09-29] MEDS: cloNIDine 0.3 MG TAB PO SCH ×3 (08:02→20:35)
[2020-09-29] MEDS: NIFEdipine XL 90 MG TAB PO SCH ×2 (08:02→20:35)
[2020-09-29] MEDS: hydrALAZINE 25 MG TAB PO SCH ×3 (08:03→20:36)
[2020-09-29] MEDS: Labetalol 100 MG TAB PO SCH ×2 (08:03→20:36)
[2020-09-29] MEDS: DULoxetine 60 MG CAP PO SCH (08:03)
[2020-09-29] MEDS: Gabapentin 100 MG CAP PO SCH ×2 (08:04→20:36)
[2020-09-29] MEDS: Sevelamer Carbonate 800 MG TAB PO SCH ×3 (08:04→15:25)
[2020-09-29] MEDS: Ondansetron ODT 4 MG TAB PO PRN (08:37)
[2020-09-29] MEDS ORDERED: Sodium Bicarbonate 2.5 MEQ/5 ML VIAL ONE (09:23)
[2020-09-29] MEDS ORDERED: Lidocaine 1% PF 5 ML VIAL ONE (09:23)
--- NOTE | 2020-09-29 09:56 | ULT ---
EXAM: US Abdomen Limited DATE: 09/29/2020 9:00 AM INDICATION: Evaluate ascites COMPARISON: Prior ultrasound-guided paracentesis dated September 24, 2020 FINDING: Small amount of residual ascites is present predominantly within the right upper quadrant o f the abdomen. No significant amounts of fluid are seen within the remaining quadrants. IMPRESSION:Small amount of ascites. The small amount of ascites would preclude a therapeutic paracent esis.
[2020-09-29] MEDS ORDERED: EPOETIN ALFA-EPBX (ESRD) 40,000 UNIT/ML VIAL SC SCH (11:45)
--- NOTE | 2020-09-29 11:46 | CON ---
DATE OF CONSULTATION: 09/29/2020 REASON FOR CONSULTATION: Stage 6 chronic kidney disease for maintenance hemodialysis. HISTORY OF PRESENT ILLNESS: A 25-year-old gentleman with recurrent hospitalization presented to the hospital with severe anemia, ascites, and shortness of breath. The patient has been hospitalized on multiple occasions. The patient can give no further history. PAST MEDICAL HISTORY: 1. End-stage renal disease. 2. Hypertension. 3. Bioprosthetic valve. 4. MRSA bacteremia. 5. Chronic anxiety. 6. Chronic drug use. 7. Eczema. 8. Tunneled dialysis catheter. 9. AV fistula. ALLERGIES: REVIEWED. HOME MEDICATIONS: List reviewed. HOSPITAL MEDICATIONS: List reviewed. REVIEW OF SYSTEMS: Fifteen-point review of system was performed and negative except for positive noted above. HEENT: Eyes intact, no diplopia. Ears: No hearing loss or earache. Nose: No discharge or bleeding. CHEST: No cough or phlegm. ABDOMEN: No nausea or vomiting. GENITOURINARY: No hematuria. No Pimentel catheter. MUSCULOSKELETAL: No low back pain. No joint swelling or pain. NEUROLOGICAL: No syncope. No seizures. SKIN: No complaints of rash or itching. PSYCHIATRIC: No depression. CONSTITUTIONAL: No weight loss or loss of appetite. PHYSICAL EXAMINATION: GENERAL: The patient is awake and alert. VITAL SIGNS: Afebrile, pulse 75, breathing at 16, blood pressure 166/95. HEENT: Head normocephalic and atraumatic. Eyes intact, no ulcers. Nose intact, no ulcers. Ears intact, no ulcers. NECK: Supple. No JVD. CHEST: Symmetrical and clear. CARDIOVASCULAR: Shows S1 and S2, no rub, no murmur. GASTROINTESTINAL: Abdomen is soft, bowel sounds positive. EXTREMITIES: Show no edema or ulcers. SKIN: Shows no rash or petechiae. MUSCULOSKELETAL: Shows no joint swelling or stiffness. GENITOURINARY: Shows no Pimentel or CVA tenderness. NEUROLOGIC: Motor intact. Cranial nerves intact. LABORATORY DATA: Reviewed. ASSESSMENT AND PLAN: 1. Stage 6 chronic kidney disease. Continue hemodialysis. 2. Hypertension, stable. 3. Hyperkalemia, stable. 4. Anemia. We will give blood with dialysis. Would recommend giving Epogen 20,000 units subcu. Job ID: [id number]
[2020-09-29] MEDS ORDERED: Heparin 1,000 UNITS/ML VIAL ONE (13:55)
[2020-09-29] MEDS: diphenhydrAMINE 50 MG/ML VIAL IVP PRN (17:48)
[2020-09-29] MEDS: Amitriptyline HCl 100 MG TAB PO SCH (20:35)
[2020-09-30] MEDS: Morphine 2 MG/ML VIAL SLOW IVP PRN ×5 (00:03→20:57)
[2020-09-30] MEDS: diphenhydrAMINE 50 MG/ML VIAL IVP PRN ×5 (00:04→20:57)
[2020-09-30] MEDS: Rifampin 300 MG CAP PO SCH ×2 (05:30→21:03)
[2020-09-30 05:58] LABS: #Eosinphils 0.9 thou/uL (0.0-0.7); #Lymphocytes 1.3 thou/uL (1.20-3.40); #Monocytes 0.9 thou/uL (0.11-0.59); #Neutrophils 4.6 thou/uL (1.40-6.50); %Basophils 0.2 % (0.0-1.0); %Eosinophils 11.8 % (0.0-10.0); %Lymphocytes 16.4 % (21.0-51.0); %Neutrophils 59.7 % (42.0-75.0); Hemoglobin 8.1 g/dL (14.0-18.0); Mean Corpuscular HGB CONC 33.7 g/dL (32.0-36.0); Mean Corpuscular Hemoglobin 32.4 pg (27.0-31.0); Mean Corpuscular Volume 96.1 fL (78.0-98.0); Mean Platelet Volume 9.6 fL (7.4-10.4); Platelet Count 141 thou/uL (130-400); RBC Distribution Width 17.4 % (11.5-14.5); Red Blood Cell (RBC) Count 2.49 mill/uL (4.70-6.10); White Blood Cell (WBC) Count 7.7 thou/uL (4.8-10.8)
[2020-09-30 06:09] LABS: Anion Gap 16 mmol/L (10-20); BUN (Urea Nitrogen) 31 mg/dL (8.9-20.6); Calc. Creatinine Clearance 28 mL/min (70-130); Calcium 8.5 mg/dL (7.8-10.44); Carbon Dioxide 29 mmol/L (22-29); Chloride 97 mmol/L (98-107); Estimated GFR-MDRD 17; Glucose 85 mg/dL (70-105); Potassium 5.5 mmol/L (3.5-5.1); Sodium 136 mmol/L (136-145)
[2020-09-30] MEDS: Gabapentin 100 MG CAP PO SCH ×2 (08:54→21:03)
[2020-09-30] MEDS: hydrALAZINE 25 MG TAB PO SCH ×3 (08:54→21:02)
[2020-09-30] MEDS: NIFEdipine XL 90 MG TAB PO SCH ×2 (08:55→21:03)
[2020-09-30] MEDS: Sevelamer Carbonate 800 MG TAB PO SCH ×3 (08:55→16:18)
[2020-09-30] MEDS: cloNIDine 0.3 MG TAB PO SCH ×3 (08:55→21:03)
[2020-09-30] MEDS: DULoxetine 60 MG CAP PO SCH (08:55)
[2020-09-30] MEDS: Labetalol 100 MG TAB PO SCH ×2 (08:56→21:02)
--- NOTE | 2020-09-30 10:49 | PRG ---
DATE OF SERVICE: SUBJECTIVE: A 25-year-old gentleman being seen for end-stage renal disease. The patient denies any nausea, vomiting, or chest pain. OBJECTIVE: GENERAL: The patient is awake and alert. VITAL SIGNS: Afebrile, pulse 79, breathing at 16, blood pressure 151/89. HEENT: Head normocephalic and atraumatic. Eyes intact, no ulcers. Nose intact, no ulcers. Ears intact, no ulcers. Neck: Supple. No JVD. Chest: Symmetrical and clear. Cardiovascular: Shows S1 and S2, no rub, no murmur. Gastrointestinal: Abdomen is soft, bowel sounds positive. Extremities: Show no edema or ulcers. Skin: Shows no rash or petechiae. Musculoskeletal: Shows no joint swelling or stiffness. Genitourinary: Shows no Pimentel or CVA tenderness. Neurologic: Motor intact. Cranial nerves intact. LABORATORY DATA: Show hemoglobin 8.1. Potassium 5.5. ASSESSMENT: Stage 6 chronic kidney disease, plan dialysis. Hyperkalemia, plan dialysis. Anemia, stable. Medication based on GFR appropriate. Job ID: [id number]
[2020-09-30 12:19] LABS: Potassium 5.8 mmol/L (3.5-5.1)
[2020-09-30] MEDS: Acetaminophen/Codeine 30-300mg Tablet PO PRN ×2 (13:08→22:34)
--- NOTE | 2020-09-30 18:49 | PDOC.HOSPP ---
- Subjective Encounter Date: 09/30/20 Encounter Time: 10:15 Subjective: Patient seen and examined for anemia. Continues to have abdominal discomfort which is generalized. No nausea or vomiting reported. - Objective Vital Signs & Weight: Vital Signs (12 hours) Temp Pulse Resp BP BP BP Pulse Ox 09/30/20 16:00 98.6 F 90 18 157/98 H 93 L 09/30/20 15:06 94 155/99 H 09/30/20 11:28 98.5 F 94 16 155/99 H 95 09/30/20 08:56 109 H 151/89 H 09/30/20 08:55 109 H 151/89 H 09/30/20 08:54 109 H 151/89 H 09/30/20 07:17 99.6 F 109 H 18 151/89 H 95 Weight Weight 192 lb 6.4 oz I&O: 09/29/20 09/30/20 10/01/20 06:59 06:59 06:59 Intake Total 350 Balance 350 Result Diagrams: 10/01/20 05:05 10/01/20 05:05 Radiology Reviewed by me: Yes (Abdominal ultrasoundsmall amount of ascites) Hospitalist ROS - Review of Systems Respiratory: denies: cough, dry, shortness of breath, hemoptysis, SOB with excertion, pleuritic pain, sputum, wheezing, other Cardiovascular: denies: chest pain, palpitations, orthopnea, paroxysmal noc. dyspnea, edema, light headedness, other - Medication Medications: Active Medications Generic Name Dose Route Start Last Admin Trade Name Freq PRN Reason Stop Dose Admin Acetaminophen/Codeine Phosphate 1 tab 09/29/20 02:25 09/30/20 13:08 Acetaminophen/Codeine 30-300mg Tablet PO 1 tab Q8H PRN Administration Moderate Pain (4-6) Amitriptyline HCl 100 mg 09/29/20 21:00 09/29/20 20:35 Amitriptyline Hcl 100 Mg Tab PO 100 mg QPM ALANNA Administration Clonidine 0.3 mg 09/29/20 09:00 09/30/20 15:06 Clonidine 0.3 Mg Tab PO 0.3 mg TID ALANNA Administration Diphenhydramine HCl 25 mg 09/29/20 17:30 09/30/20 15:08 Diphenhydramine 50 Mg/Ml Vial IVP 25 mg Q6H PRN Administration Itching Duloxetine HCl 60 mg 09/29/20 09:00 09/30/20 08:55 Duloxetine 60 Mg Cap PO 60 mg DAILY ALANNA Administration Gabapentin 100 mg 09/29/20 09:00 09/30/20 08:54 Gabapentin 100 Mg Cap PO 100 mg BID ALANNA Administration Hydralazine HCl 100 mg 09/29/20 09:00 09/30/20 15:06 Hydralazine 25 Mg Tab PO 100 mg TID ALANNA Administration Labetalol HCl 600 mg 09/29/20 09:00 09/30/20 08:56 Labetalol 100 Mg Tab PO 600 mg BID ALANNA Administration Morphine Sulfate 2 mg 09/29/20 02:12 09/30/20 15:07 Morphine 2 Mg/Ml Vial SLOW IVP 2 mg Q4H PRN Administration Severe Pain (7-10) Nifedipine 90 mg 09/29/20 09:00 09/30/20 08:55 Nifedipine Xl 90 Mg Tab PO 90 mg BID ALANNA Administration Ondansetron HCl 4 mg 09/29/20 02:25 09/29/20 08:37 Ondansetron Odt 4 Mg Tab PO 4 mg Q6H PRN Administration Nausea/Vomiting Pantoprazole Sodium 40 mg 09/29/20 09:00 09/30/20 08:58 Pantoprazole 40 Mg Tab PO 40 mg DAILY ALANNA Administration Rifampin 300 mg 09/29/20 06:00 09/30/20 05:30 Rifampin 300 Mg Cap PO 10/15/20 23:59 300 mg 0600,2200 ALANNA Administration Sevelamer Carbonate 2,400 mg 09/29/20 08:00 09/30/20 16:18 Sevelamer Carbonate 800 Mg Tab PO 2,400 mg TID-WM ALANNA Administration - Exam General Appearance: ill appearing Neck: supple, no JVD Heart: RRR, no gallops, no rubs, normal peripheral pulses Respiratory: no wheezes, no rales, no ronchi, normal chest expansion Gastrointestinal: soft, normal bowel sounds, no guarding, no rigidity Gastrointestinal - other findings: Mild generalized tenderness Extremities: no cyanosis, no clubbing Neurological: no new deficit Psychiatric: normal affect, A&O x 3 Hosp A/P - Plan DVT proph w/SCDs Abdominal pain probably due to symptomatic ascites Hyperkalemia with potassium of 6.2 on admission End-stage renal disease 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 Not safe for paracentesis per radiology. Patient will undergo hemodialysis today. Patient was counseled on dietary restriction. Recent CT scan of the abdomen was negative for acute pathology except for large volume free intraperitoneal fluid. Will recheck labs in a.m. Continue renal diet. Continue other medications as above
[2020-09-30] MEDS: Amitriptyline HCl 100 MG TAB PO SCH (21:03)
[2020-09-30] MEDS: Ondansetron ODT 4 MG TAB PO PRN (22:34)
[2020-10-01] MEDS: Morphine 2 MG/ML VIAL SLOW IVP PRN ×4 (03:30→21:01)
[2020-10-01] MEDS: diphenhydrAMINE 50 MG/ML VIAL IVP PRN ×4 (03:30→21:02)
[2020-10-01 05:17] LABS: #Eosinphils 0.8 thou/uL (0.0-0.7); #Lymphocytes 0.9 thou/uL (1.20-3.40); #Monocytes 0.7 thou/uL (0.11-0.59); #Neutrophils 4.1 thou/uL (1.40-6.50); %Basophils 0.4 % (0.0-1.0); %Eosinophils 12.6 % (0.0-10.0); %Lymphocytes 14.3 % (21.0-51.0); %Monocytes 10.4 % (0.0-10.0); %Neutrophils 62.3 % (42.0-75.0); Mean Corpuscular HGB CONC 33.3 g/dL (32.0-36.0); Mean Corpuscular Hemoglobin 32.3 pg (27.0-31.0); Mean Corpuscular Volume 96.8 fL (78.0-98.0); Mean Platelet Volume 9.1 fL (7.4-10.4); Platelet Count 132 thou/uL (130-400); RBC Distribution Width 17.1 % (11.5-14.5); Red Blood Cell (RBC) Count 2.48 mill/uL (4.70-6.10); White Blood Cell (WBC) Count 6.5 thou/uL (4.8-10.8)
[2020-10-01 05:30] LABS: Lactic Acid 1.2 mmol/L (0.5-2.2)
[2020-10-01 05:37] LABS: ALT (SGPT) 10 U/L (8-55); AST (SGOT) 15 U/L (5-34); Albumin 3.1 g/dL (3.5-5.0); Alkaline Phosphatase 156 U/L (40-110); Anion Gap 15 mmol/L (10-20); BUN (Urea Nitrogen) 29 mg/dL (8.9-20.6); Bilirubin, Total 1.1 mg/dL (0.2-1.2); Calc. Creatinine Clearance 26 mL/min (70-130); Calcium 8.7 mg/dL (7.8-10.44); Carbon Dioxide 28 mmol/L (22-29); Chloride 97 mmol/L (98-107); Estimated GFR-MDRD 16; Globulin 4.2 g/dL (2.4-3.5); Glucose 128 mg/dL (70-105); Potassium 5.1 mmol/L (3.5-5.1); Protein, Total 7.3 g/dL (6.0-8.3); Sodium 135 mmol/L (136-145)
[2020-10-01] MEDS: Acetaminophen/Codeine 30-300mg Tablet PO PRN ×2 (06:10→23:22)
[2020-10-01] MEDS: Rifampin 300 MG CAP PO SCH ×2 (06:10→21:04)
[2020-10-01] MEDS: Labetalol 100 MG TAB PO SCH ×2 (09:48→21:07)
[2020-10-01] MEDS: hydrALAZINE 25 MG TAB PO SCH ×3 (09:49→21:04)
[2020-10-01] MEDS: Sevelamer Carbonate 800 MG TAB PO SCH ×3 (09:50→16:29)
[2020-10-01] MEDS: DULoxetine 60 MG CAP PO SCH (09:50)
[2020-10-01] MEDS: NIFEdipine XL 90 MG TAB PO SCH ×2 (09:50→21:04)
[2020-10-01] MEDS: Gabapentin 100 MG CAP PO SCH ×2 (09:51→21:05)
[2020-10-01] MEDS: cloNIDine 0.3 MG TAB PO SCH ×3 (09:51→21:04)
--- NOTE | 2020-10-01 18:28 | PDOC.HOSPP ---
- Subjective Encounter Date: 10/01/20 Encounter Time: 14:30 Subjective: Patient seen and examined for worsening abdominal pain. Pain still uncontrolled. Patient requiring IV narcotics. - Objective Vital Signs & Weight: Vital Signs (12 hours) Temp Pulse Resp BP BP BP Pulse Ox 10/01/20 16:23 90 146/84 H 10/01/20 15:54 98.1 F 90 18 146/84 H 10/01/20 11:23 98.7 F 98 18 159/99 H 94 L 10/01/20 09:51 145/87 H 10/01/20 09:50 96 145/87 H 10/01/20 09:49 96 145/87 H 10/01/20 09:48 96 145/87 H 10/01/20 07:20 99.5 F 97 18 140/82 94 L Weight Weight 192 lb 6.4 oz I&O: 09/30/20 10/01/20 10/02/20 06:59 06:59 06:59 Intake Total 350 881 Balance 350 881 Result Diagrams: 10/01/20 05:05 10/01/20 05:05 Additional Labs: Accuchecks 10/01/20 11:23 POC Glucose 98 Radiology Reviewed by me: Yes (Recent CT abdomen reviewed) Hospitalist ROS - Review of Systems Respiratory: denies: cough, dry, shortness of breath, hemoptysis, SOB with excertion, pleuritic pain, sputum, wheezing, other Cardiovascular: denies: chest pain, palpitations, orthopnea, paroxysmal noc. dyspnea, edema, light headedness, other - Medication Medications: Active Medications Generic Name Dose Route Start Last Admin Trade Name Freq PRN Reason Stop Dose Admin Acetaminophen/Codeine Phosphate 1 tab 09/29/20 02:25 10/01/20 06:10 Acetaminophen/Codeine 30-300mg Tablet PO 1 tab Q8H PRN Administration Moderate Pain (4-6) Amitriptyline HCl 100 mg 09/29/20 21:00 09/30/20 21:03 Amitriptyline Hcl 100 Mg Tab PO 100 mg QPM ALANNA Administration Clonidine 0.3 mg 09/29/20 09:00 10/01/20 16:23 Clonidine 0.3 Mg Tab PO 0.3 mg TID ALANNA Administration Diphenhydramine HCl 25 mg 09/29/20 17:30 10/01/20 16:24 Diphenhydramine 50 Mg/Ml Vial IVP 25 mg Q6H PRN Administration Itching Duloxetine HCl 60 mg 09/29/20 09:00 10/01/20 09:50 Duloxetine 60 Mg Cap PO 60 mg DAILY ALANNA Administration Gabapentin 100 mg 09/29/20 09:00 10/01/20 09:51 Gabapentin 100 Mg Cap PO 100 mg BID ALANNA Administration Hydralazine HCl 100 mg 09/29/20 09:00 10/01/20 16:23 Hydralazine 25 Mg Tab PO 100 mg TID ALANNA Administration Labetalol HCl 600 mg 09/29/20 09:00 10/01/20 09:48 Labetalol 100 Mg Tab PO 600 mg BID ALANNA Administration Morphine Sulfate 2 mg 09/29/20 02:12 10/01/20 16:24 Morphine 2 Mg/Ml Vial SLOW IVP 2 mg Q4H PRN Administration Severe Pain (7-10) Nifedipine 90 mg 09/29/20 09:00 10/01/20 09:50 Nifedipine Xl 90 Mg Tab PO 90 mg BID ALANNA Administration Ondansetron HCl 4 mg 09/29/20 02:25 09/30/20 22:34 Ondansetron Odt 4 Mg Tab PO 4 mg Q6H PRN Administration Nausea/Vomiting Pantoprazole Sodium 40 mg 09/29/20 09:00 10/01/20 09:50 Pantoprazole 40 Mg Tab PO 40 mg DAILY ALANNA Administration Rifampin 300 mg 09/29/20 06:00 10/01/20 06:10 Rifampin 300 Mg Cap PO 10/15/20 23:59 300 mg 06,2200 ALANNA Administration Sevelamer Carbonate 2,400 mg 09/29/20 08:00 10/01/20 16:29 Sevelamer Carbonate 800 Mg Tab PO 2,400 mg TID- ALANNA Administration - Exam General Appearance: ill appearing Heart: RRR, no gallops Respiratory: no rales, no ronchi Gastrointestinal: soft, normal bowel sounds, no guarding, no rigidity, tender to palpation Extremities: no cyanosis, no clubbing Neurological: no new deficit Hosp A/P - Plan DVT proph w/SCDs Abdominal pain probably due to symptomatic ascites Hyperkalemia with potassium of 6.2 on admission End-stage renal disease on hemodialysis due to Goodpasture's syndrome Anemia due to chronic renal disease History of failed renal transplant Noncompliance with dietary restrictions for dialysis Hypertension Anxiety GERD 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 Case discussed with nephrology. Will consult general surgery in a.m. due to persistent abdominal discomfort. We will keep him n.p.o. past midnight. Pain control. Potassium improving. Continue other medications as above. A.m. labs
[2020-10-01] MEDS: Acetaminophen 500 MG TAB PO PRN (21:04)
[2020-10-01] MEDS: Amitriptyline HCl 100 MG TAB PO SCH (21:04)
[2020-10-01] MEDS: Ondansetron ODT 4 MG TAB PO PRN (23:23)
[2020-10-02 00:14] LABS: Troponin I 0.032 ng/mL (< 0.028)
--- NOTE | 2020-10-02 01:00 | PDOC.EVN ---
Event Note - Event Note Event Note: Nursing called and stated that patient complaining of left sided chest pain at this time. STAT EKG and troponin x2 ordered. Went to room and visited with and assessed patient. Patient is leaning to left side and states the pressure is toward that side and worsens with deep breaths. Increased pain with palpation. Straightened patient up in bed and the fluid in his abdomen was able to shift more midline, patient felt some relief with this. He does feel he is unable to take a deep breath due to the distension. Will help patient with pain control.
[2020-10-02 03:12] LABS: Troponin I 0.021 ng/mL (< 0.028)
[2020-10-02 03:23] LABS: ALT (SGPT) 9 U/L (8-55); AST (SGOT) 11 U/L (5-34); Albumin 3.1 g/dL (3.5-5.0); Alkaline Phosphatase 152 U/L (40-110); Anion Gap 17 mmol/L (10-20); BUN (Urea Nitrogen) 42 mg/dL (8.9-20.6); Calc. Creatinine Clearance 21 mL/min (70-130); Calcium 8.5 mg/dL (7.8-10.44); Carbon Dioxide 28 mmol/L (22-29); Chloride 96 mmol/L (98-107); Estimated GFR-MDRD 12; Globulin 3.9 g/dL (2.4-3.5); Glucose 107 mg/dL (70-105); Lipase 10 U/L (8-78); Potassium 5.4 mmol/L (3.5-5.1); Sodium 136 mmol/L (136-145)
[2020-10-02 03:24] LABS: #Eosinphils 0.9 thou/uL (0.0-0.7); #Monocytes 0.7 thou/uL (0.11-0.59); #Neutrophils 3.9 thou/uL (1.40-6.50); %Basophils 0.1 % (0.0-1.0); %Lymphocytes 15.9 % (21.0-51.0); %Monocytes 10.9 % (0.0-10.0); %Neutrophils 60.2 % (42.0-75.0); Anisocytosis SLIGHT = 6-15 cells (100X) (0-5/hpf); Hemoglobin 7.5 g/dL (14.0-18.0); MDiff Complete? YES; Mean Corpuscular HGB CONC 33.5 g/dL (32.0-36.0); Mean Corpuscular Hemoglobin 32.2 pg (27.0-31.0); Mean Corpuscular Volume 95.9 fL (78.0-98.0); Mean Platelet Volume 8.2 fL (7.4-10.4); Platelet Count 117 thou/uL (130-400); Platelet Morphology Comment Appears Decreased; RBC Distribution Width 16.9 % (11.5-14.5); Red Blood Cell (RBC) Count 2.32 mill/uL (4.70-6.10); White Blood Cell (WBC) Count 6.5 thou/uL (4.8-10.8)
[2020-10-02] MEDS: Morphine 2 MG/ML VIAL SLOW IVP PRN ×4 (04:42→20:37)
[2020-10-02] MEDS: diphenhydrAMINE 50 MG/ML VIAL IVP PRN ×2 (04:43→08:52)
--- NOTE | 2020-10-02 05:03 | PRG ---
DATE OF SERVICE: 10/01/2020 SUBJECTIVE: A 25-year-old gentleman being seen for end-stage renal disease. The patient denied nausea, vomiting, or chest pain. PHYSICAL EXAMINATION: GENERAL: The patient is awake and alert. VITAL SIGNS: Afebrile, pulse 95, breathing at 16, blood pressure 145/87. HEENT: Head normocephalic and atraumatic. Eyes intact, no ulcers. Nose intact, no ulcers. Ears intact, no ulcers. NECK: Supple. No JVD. CHEST: Symmetrical and clear. CARDIOVASCULAR: Shows S1 and S2, no rub, no murmur. GASTROINTESTINAL: Abdomen is soft, bowel sounds positive. EXTREMITIES: Show no edema or ulcers. SKIN: Shows no rash or petechiae. MUSCULOSKELETAL: Shows no joint swelling or stiffness. GENITOURINARY: Shows no Pimentel or CVA tenderness. NEUROLOGIC: Motor intact. Cranial nerves intact. LABORATORY DATA: Show hemoglobin 8. ASSESSMENT AND PLAN: 1. Stage 6 chronic kidney disease. Plan dialysis as scheduled. 2. Hypertension, stable. 3. Anemia, stable. 4. Hyperkalemia, improved. Job ID: [id number]
[2020-10-02] MEDS: Rifampin 300 MG CAP PO SCH ×2 (05:23→20:41)
[2020-10-02] MEDS: Gabapentin 100 MG CAP PO SCH ×2 (08:51→20:37)
[2020-10-02] MEDS: DULoxetine 60 MG CAP PO SCH (08:51)
[2020-10-02] MEDS: cloNIDine 0.3 MG TAB PO SCH ×3 (08:53→20:36)
[2020-10-02] MEDS: hydrALAZINE 25 MG TAB PO SCH ×3 (08:53→20:40)
[2020-10-02] MEDS: Sevelamer Carbonate 800 MG TAB PO SCH ×3 (08:53→17:49)
[2020-10-02] MEDS ORDERED: Iopamidol-370 76% 500 ML 1 ML ONE (09:10)
--- NOTE | 2020-10-02 11:14 | PRG ---
DATE OF SERVICE: 10/02/2020 SUBJECTIVE: Patient was seen and examined at bedside and overnight events noted. Patient denies any shortness of breath or chest pain or palpitation. No history of nausea or vomiting or diarrhea or fever or chills or cramps. OBJECTIVE: GENERAL: This is a well-built male, in no apparent distress. VITAL SIGNS: Temperature 98.2. Heart Rate 93. Respiratory rate 18. Blood pressure 150/97. HEENT: Atraumatic, normocephalic. Oral mucosa is moist. NECK: Supple. CARDIOVASCULAR: S1, S2 heard. Rate and rhythm regular. RESPIRATORY: Clear to auscultation. GASTROINTESTINAL: Abdomen is soft. MUSCULOSKELETAL: No tenderness. No edema. DERMATOLOGIC: No skin rash. NEUROLOGIC: Alert and awake and oriented x3. No focal neurologic deficits. Moving all the extremities. PSYCHIATRIC: Mood and affect normal. LABORATORY DATA: Potassium 5.4, BUN is 42, creatinine is 6.7. ASSESSMENT: 1. End-stage renal disease. Plan to have dialysis. The patient is seen during dialysis and we will continue dialysis on Friday, Friday, and Friday. The patient is tolerating dialysis well today. 2. Hyperkalemia, on dialysis now. 3. History of hypertension. 4. Hypoalbuminemia, anemia of chronic disease. 5. History of renal transplant. PLAN: Plan is to have dialysis on Friday, Friday, and Friday as tolerated. Job ID: [id number]
[2020-10-02] MEDS: Labetalol 100 MG TAB PO SCH ×2 (13:45→20:41)
[2020-10-02] MEDS: NIFEdipine XL 90 MG TAB PO SCH ×2 (13:48→20:40)
[2020-10-02] MEDS: Acetaminophen/Codeine 30-300mg Tablet PO PRN (13:52)
[2020-10-02] MEDS: diphenhydrAMINE 25 MG CAP PO PRN ×2 (13:53→20:40)
--- NOTE | 2020-10-02 15:32 | CON ---
DATE OF CONSULTATION: HISTORY OF PRESENT ILLNESS: Estee Martínez is a 25-year-old black male, end-stage renal disease. He has been on dialysis most of his life. The patient has a functioning right upper arm basilic vein transposition fistula performed by Dr. Youssef. Subsequent operation in [place] by his vascular surgeon who has been seen for his dialysis access when he was a child. The patient states he has had abdominal pain in the past 2 weeks. He has had increased abdominal distention in the last few days. He was admitted on 09/29/2020. Abdominal ultrasound obtained in evaluation for a paracentesis, but did not have enough ascites to justify that. It was canceled. The patient complains to have right-sided abdominal pain with some nausea. His last CAT scan of the abdomen and pelvis on 09/20/2020 revealed pulmonary parenchymal findings, ascites, anasarca. No acute process. No bowel obstruction. He had another CAT scan of chest, abdomen, pelvis on 09/14/2020 without remarkable findings. Of note is he has had a nuclear cardiac stress test in June 2019 without ischemia. ALLERGIES: LORACARBEF. SOCIAL HISTORY: Alcohol, socially. He smokes marijuana frequently. PAST MEDICAL HISTORY: End-stage renal disease, status post renal transplant, status post rejection, on hemodialysis, right arm basilic vein transposition fistula, bioprosthetic valve, history of endocarditis, history of renal transplant rejection, eczema. PAST SURGICAL HISTORY: Right arm fistula, renal transplant. PHYSICAL EXAMINATION: VITAL SIGNS: 6 feet 2, 192 pounds, 24 BMI. 98.2, 93, 144/85. LUNGS: Clear to auscultation. CARDIAC: Regular rate and rhythm without murmur or gallop. ABDOMEN: Distended, tympanitic, tenderness with voluntary guarding in right abdomen. Right arm fistula, undergoing dialysis. EXTREMITIES: Unremarkable. LABORATORY DATA: White count 6.5, hemoglobin 7.5. Sodium 136, potassium 5.4, BUN and creatinine changes with end-stage renal disease. Liver function tests normal. ASSESSMENT AND PLAN: Abdominal pain, distention of uncertain etiology. Even though he had a CAT scan in August, since it is October 02, would repeat his CAT scan of the abdomen and pelvis due to his abdominal distention and tenderness. We will await the studies. Job ID: [id number]
[2020-10-02] MEDS: Ondansetron ODT 4 MG TAB PO PRN (16:45)
--- NOTE | 2020-10-02 17:44 | CT ---
CT abdomen and pelvis with IV and oral contrast HISTORY: Abdominal pain. Distention. COMPARISON: 09/20/2020. FINDINGS: Minimal scarring, groundglass opacity, and small amount of right pleural fluid at the lung bases similar in appearance to the prior exam. Spleen remains enlarged at 16.2 cm. Liver also remains enlarged. Hyperdense material in the gallbladder lumen consistent with vicarious excretion of contrast. Diffuse fluid infiltration throughout the intra-abdominal and subcutaneous fat again demonstrated. Mo derate amount of free fluid around the abdomen and pelvis, less than on the 09/20/2020 study. Prominent atrophy of each kidney and small nonobstructing bilateral renal calculi again demonstrated. No evidence of bowel obstruction or inflammation. The large calcified mass within the right lower lara drant is unchanged in appearance. Bones remain diffusely dense, consistent with renal osteodystrophy. IMPRESSION : Moderate to large amount of free fluid in the abdomen, less than on the 09/20/2020 study. Diffuse anasarca and other chronic-type findings for this patient are stable.
[2020-10-02] MEDS: Amitriptyline HCl 100 MG TAB PO SCH (20:36)
--- NOTE | 2020-10-02 22:03 | PDOC.HOSPP ---
- Subjective Encounter Date: 10/02/20 Encounter Time: 09:30 Subjective: Patient seen and examined for worsening abdominal pain. Continues to require IV morphine. Undergoing hemodialysis. - Objective Vital Signs & Weight: Vital Signs (12 hours) Temp Pulse Resp BP BP BP Pulse Ox 10/02/20 20:40 90 10/02/20 19:00 99.0 F 87 20 155/91 H 98 10/02/20 17:50 85 143/79 H 10/02/20 17:49 143/79 H 10/02/20 15:48 98.8 F 102 H 18 156/85 H 93 L 10/02/20 13:48 97 154/91 H 10/02/20 13:45 97 154/91 H Weight Weight 192 lb 6.4 oz I&O: 10/01/20 10/02/20 10/03/20 06:59 06:59 06:59 Intake Total 881 1100 Balance 881 1100 Result Diagrams: 10/02/20 02:31 10/03/20 07:07 Hospitalist ROS - Review of Systems Respiratory: denies: cough, dry, shortness of breath, hemoptysis, SOB with excertion, pleuritic pain, sputum, wheezing, other Cardiovascular: denies: chest pain, palpitations, orthopnea, paroxysmal noc. dyspnea, edema, light headedness, other Gastrointestinal: reports: abdominal pain. denies: nausea, vomiting, diarrhea, constipation, melena, hematochezia, other - Medication Medications: Active Medications Generic Name Dose Route Start Last Admin Trade Name Freq PRN Reason Stop Dose Admin Acetaminophen 500 mg 10/01/20 20:41 10/01/20 21:04 Acetaminophen 500 Mg Tab PO 500 mg Q6H PRN Administration Fever/Mild Pain Acetaminophen/Codeine Phosphate 1 tab 09/29/20 02:25 10/02/20 13:52 Acetaminophen/Codeine 30-300mg Tablet PO 1 tab Q8H PRN Administration Moderate Pain (4-6) Amitriptyline HCl 100 mg 09/29/20 21:00 10/02/20 20:36 Amitriptyline Hcl 100 Mg Tab PO 100 mg QPM ALANNA Administration Clonidine 0.3 mg 09/29/20 09:00 10/02/20 20:36 Clonidine 0.3 Mg Tab PO 0.3 mg TID ALANNA Administration Diphenhydramine HCl 25 mg 10/02/20 09:49 10/02/20 20:40 Diphenhydramine 25 Mg Cap PO 25 mg Q6H PRN Administration Itching & Insomnia Duloxetine HCl 60 mg 09/29/20 09:00 10/02/20 08:51 Duloxetine 60 Mg Cap PO 60 mg DAILY ALANNA Administration Gabapentin 100 mg 09/29/20 09:00 10/02/20 20:37 Gabapentin 100 Mg Cap PO 100 mg BID ALANNA Administration Hydralazine HCl 100 mg 09/29/20 09:00 10/02/20 20:40 Hydralazine 25 Mg Tab PO 100 mg TID ALANNA Administration Labetalol HCl 600 mg 09/29/20 09:00 10/02/20 20:41 Labetalol 100 Mg Tab PO 600 mg BID ALANNA Administration Morphine Sulfate 2 mg 10/02/20 14:39 10/02/20 20:37 Morphine 2 Mg/Ml Vial SLOW IVP 10/03/20 14:40 2 mg Q4H PRN Administration Pain Nifedipine 90 mg 09/29/20 09:00 10/02/20 20:40 Nifedipine Xl 90 Mg Tab PO 90 mg BID ALANNA Administration Ondansetron HCl 4 mg 09/29/20 02:25 10/02/20 16:45 Ondansetron Odt 4 Mg Tab PO 4 mg Q6H PRN Administration Nausea/Vomiting Pantoprazole Sodium 40 mg 09/29/20 09:00 10/02/20 08:51 Pantoprazole 40 Mg Tab PO 40 mg DAILY ALANNA Administration Rifampin 300 mg 09/29/20 06:00 10/02/20 20:41 Rifampin 300 Mg Cap PO 10/15/20 23:59 300 mg 0600,2200 ALANNA Administration Sevelamer Carbonate 2,400 mg 09/29/20 08:00 10/02/20 17:49 Sevelamer Carbonate 800 Mg Tab PO Not Given TID-WM ALANNA - Exam General Appearance: NAD Heart: RRR, no gallops Respiratory: no wheezes, no ronchi Gastrointestinal: soft, normal bowel sounds, no guarding, no rigidity, tender to palpation Extremities: no cyanosis, no clubbing Neurological: no new deficit Hosp A/P - Plan DVT proph w/SCDs Abdominal pain probably due to symptomatic ascites Hyperkalemia with potassium of 6.2 on admission End-stage renal disease on hemodialysis due to Goodpasture's syndrome Anemia due to chronic renal disease History of failed renal transplant Noncompliance with dietary restrictions for dialysis Hypertension Anxiety GERD 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 Await surgical input. Continue IV narcotics. Hemodialysis per nephrology. Recheck labs in a.m. keep patient n.p.o. Continue other medications as above. I discussed with general surgery who recommended CT scan of the abdomen which will be done later today.
[2020-10-03] MEDS: Acetaminophen/Codeine 30-300mg Tablet PO PRN ×2 (00:06→21:45)
[2020-10-03] MEDS: Ondansetron ODT 4 MG TAB PO PRN ×3 (00:12→12:06)
[2020-10-03] MEDS: Morphine 2 MG/ML VIAL SLOW IVP PRN ×2 (01:28→05:54)
[2020-10-03] MEDS: diphenhydrAMINE 25 MG CAP PO PRN ×3 (03:22→21:46)
[2020-10-03] MEDS: Rifampin 300 MG CAP PO SCH ×2 (05:53→21:46)
[2020-10-03 07:38] LABS: Anion Gap 16 mmol/L (10-20); BUN (Urea Nitrogen) 37 mg/dL (8.9-20.6); Calc. Creatinine Clearance 24 mL/min (70-130); Calcium 8.8 mg/dL (7.8-10.44); Carbon Dioxide 27 mmol/L (22-29); Chloride 96 mmol/L (98-107); Estimated GFR-MDRD 14; Glucose 80 mg/dL (70-105); Potassium 5.7 mmol/L (3.5-5.1); Sodium 133 mmol/L (136-145)
[2020-10-03] MEDS: Sevelamer Carbonate 800 MG TAB PO SCH ×3 (08:02→18:10)
[2020-10-03 08:47] LABS: #Eosinphils 0.8 thou/uL (0.0-0.7); #Lymphocytes 1.1 thou/uL (1.20-3.40); #Monocytes 0.9 thou/uL (0.11-0.59); #Neutrophils 4.3 thou/uL (1.40-6.50); %Basophils 0.6 % (0.0-1.0); %Eosinophils 11.2 % (0.0-10.0); %Monocytes 12.2 % (0.0-10.0); Hemoglobin 7.9 g/dL (14.0-18.0); Mean Corpuscular HGB CONC 32.8 g/dL (32.0-36.0); Mean Corpuscular Hemoglobin 31.5 pg (27.0-31.0); Mean Corpuscular Volume 95.9 fL (78.0-98.0); Mean Platelet Volume 8.5 fL (7.4-10.4); Platelet Count 112 thou/uL (130-400); RBC Distribution Width 16.8 % (11.5-14.5); Red Blood Cell (RBC) Count 2.49 mill/uL (4.70-6.10); White Blood Cell (WBC) Count 7.1 thou/uL (4.8-10.8)
[2020-10-03] MEDS: Fentanyl 100 MCG/2 ML VIAL SLOW IVP PRN ×4 (09:47→22:57)
[2020-10-03] MEDS: cloNIDine 0.3 MG TAB PO SCH ×3 (09:51→21:45)
[2020-10-03] MEDS: NIFEdipine XL 90 MG TAB PO SCH ×2 (09:51→21:45)
[2020-10-03] MEDS: Labetalol 100 MG TAB PO SCH ×2 (09:51→22:50)
[2020-10-03] MEDS: hydrALAZINE 25 MG TAB PO SCH ×3 (09:52→21:44)
[2020-10-03] MEDS: DULoxetine 60 MG CAP PO SCH (09:52)
[2020-10-03] MEDS: Gabapentin 100 MG CAP PO SCH ×2 (09:52→21:44)
[2020-10-03] MEDS ORDERED: Lidocaine 1% PF 5 ML VIAL ONE ×2 (13:16→13:30)
[2020-10-03] MEDS ORDERED: Sodium Bicarbonate 2.5 MEQ/5 ML VIAL ONE (13:16)
--- NOTE | 2020-10-03 14:24 | ULT ---
ULTRASOUND-GUIDED PARACENTESIS DIAGNOSTIC: DATE: 10/03/2020 HISTORY: 25-year-old male with ascites. TECHNIQUE: Signed informed consent obtained. A four-quadrant survey of abdomen performed. This was ordered as a diagnostic and therapeutic paracentesis. Because of combination of enlarged liver, multiple hypermobile loops of bowel, especially right colon , and patient's difficulty in holding his breath, only a diagnostic paracentesis was performed. Site selected for puncture: Right mid abdomen Overlying skin prepared and draped in usual sterile fashion. 25-gauge needle used to apply buffered lidocaine superficially and deeply. The same needle was to aspirate the free intraperitoneal fluid adjacent to the right lobe of the live r.. After drainage, the Yueh catheter was removed. Patient tolerated the procedure well. No complications. The syringe with fluid was sent to laboratory for analysis. FINDINGS: Volume of ascites prior to procedure:small to moderate. Volume of ascites fluid in the drainage pocket after drainage:Unchanged. Volume of ascites fluid drained:6 mL Appearance of ascites fluid:Hemorrhagic IMPRESSION: Successful diagnostic paracentesis, with aspiration of 6 mL of hemorrhagic ascites fluid.
--- NOTE | 2020-10-03 14:43 | PRG ---
DATE OF SERVICE: 10/03/2020 SUBJECTIVE: Patient was seen and examined at bedside and overnight events noted. Patient denies any shortness of breath or chest pain or palpitation. No history of nausea or vomiting or diarrhea or fever or chills or cramps. OBJECTIVE: GENERAL: This is a well-built male, in no apparent distress. VITAL SIGNS: Temperature 98.9. Heart rate 90. Respiratory rate 20. Blood pressure 147/98. HEENT: Atraumatic, normocephalic. Oral mucosa is moist NECK: Supple. CARDIOVASCULAR: S1, S2 heard. Rate and rhythm regular. RESPIRATORY: Clear to auscultation. GASTROINTESTINAL: Abdomen is soft. MUSCULOSKELETAL: No tenderness. No edema. DERMATOLOGIC: No skin rash. NEUROLOGIC: Alert and awake and oriented X3. No focal neurologic deficits. Moving all the extremities. PSYCHIATRIC: Mood and affect normal. LABORATORY DATA: Potassium 5.7, BUN is 37, creatinine is 5.9. ASSESSMENT AND PLAN: 1. End-stage renal disease, on hemodialysis. We will continue on dialysis. 2. Hyperkalemia. We will have dialysis. 3. Edema. 4. Hypertension. 5. Anemia of chronic disease. Plan to have dialysis MWF as tolerated. Job ID: [id number] [facility]
[2020-10-03 15:30] LABS: RBC Count-Automated (BF) 47197 /cu.mm; WBC/Nucleated-Auto (BF) 2408 uL
[2020-10-03 15:46] LABS: BF Color Red; Body Fluid Source Ascites Body Fluid; Clarity Cloudy/Turbid (Clear); Tube # EDTA
[2020-10-03 15:49] LABS: BF Segmented Neutrophils 43 %; Cell Count Non Hematic 42 %; Lymphocytes 15 %
--- NOTE | 2020-10-03 19:22 | PDOC.HOSPP ---
- Subjective Encounter Date: 10/03/20 Encounter Time: 09:30 Subjective: Patient seen and examined for abdominal discomfort. Pain uncontrolled. Scheduled for paracentesis today. Some nausea. - Objective Vital Signs & Weight: Vital Signs (12 hours) Temp Pulse Resp BP Pulse Ox 10/03/20 12:00 98.9 F 90 18 147/92 H 99 10/03/20 08:00 99 Weight Weight 192 lb 6.4 oz I&O: 10/02/20 10/03/20 10/04/20 06:59 06:59 06:59 Intake Total 1100 513 Balance 1100 513 Result Diagrams: 10/03/20 07:07 10/03/20 07:07 Radiology Reviewed by me: Yes (CT abdomenascites) Hospitalist ROS - Review of Systems Respiratory: denies: cough, dry, shortness of breath, hemoptysis, SOB with excertion, pleuritic pain, sputum, wheezing, other Cardiovascular: denies: chest pain, palpitations, orthopnea, paroxysmal noc. dyspnea, edema, light headedness, other - Medication Medications: Active Medications Generic Name Dose Route Start Last Admin Trade Name Freq PRN Reason Stop Dose Admin Acetaminophen 500 mg 10/01/20 20:41 10/01/20 21:04 Acetaminophen 500 Mg Tab PO 500 mg Q6H PRN Administration Fever/Mild Pain Acetaminophen/Codeine Phosphate 1 tab 09/29/20 02:25 10/03/20 00:06 Acetaminophen/Codeine 30-300mg Tablet PO 1 tab Q8H PRN Administration Moderate Pain (4-6) Amitriptyline HCl 100 mg 09/29/20 21:00 10/02/20 20:36 Amitriptyline Hcl 100 Mg Tab PO 100 mg QPM ALANNA Administration Clonidine 0.3 mg 09/29/20 09:00 10/03/20 14:47 Clonidine 0.3 Mg Tab PO 0.3 mg TID ALANNA Administration Diphenhydramine HCl 25 mg 10/02/20 09:49 10/03/20 10:56 Diphenhydramine 25 Mg Cap PO 25 mg Q6H PRN Administration Itching & Insomnia Duloxetine HCl 60 mg 09/29/20 09:00 10/03/20 09:52 Duloxetine 60 Mg Cap PO 60 mg DAILY ALANNA Administration Fentanyl 25 mcg 10/03/20 08:04 10/03/20 18:10 Fentanyl 100 Mcg/2 Ml Vial SLOW IVP 25 mcg Q4H PRN Administration Severe Pain (7-10) Gabapentin 100 mg 09/29/20 09:00 10/03/20 09:52 Gabapentin 100 Mg Cap PO 100 mg BID ALANNA Administration Hydralazine HCl 100 mg 09/29/20 09:00 10/03/20 14:47 Hydralazine 25 Mg Tab PO 100 mg TID ALANNA Administration Labetalol HCl 600 mg 09/29/20 09:00 10/03/20 09:51 Labetalol 100 Mg Tab PO 600 mg BID ALANNA Administration Nifedipine 90 mg 09/29/20 09:00 10/03/20 09:51 Nifedipine Xl 90 Mg Tab PO 90 mg BID ALANNA Administration Ondansetron HCl 4 mg 09/29/20 02:25 10/03/20 12:06 Ondansetron Odt 4 Mg Tab PO 4 mg Q6H PRN Administration Nausea/Vomiting Pantoprazole Sodium 40 mg 09/29/20 09:00 10/03/20 09:52 Pantoprazole 40 Mg Tab PO 40 mg DAILY ALANNA Administration Rifampin 300 mg 09/29/20 06:00 10/03/20 05:53 Rifampin 300 Mg Cap PO 10/15/20 23:59 300 mg 0600,2200 ALANNA Administration Sevelamer Carbonate 2,400 mg 09/29/20 08:00 10/03/20 18:10 Sevelamer Carbonate 800 Mg Tab PO 2,400 mg TID-WM ALANNA Administration - Exam General Appearance: ill appearing Neck: supple, no JVD Heart: RRR, no gallops Respiratory: no wheezes, no ronchi Gastrointestinal: soft, non-tender, normal bowel sounds Extremities: no cyanosis, no clubbing Neurological: no new deficit Psychiatric: A&O x 3 Hosp A/P - Plan DVT proph w/SCDs Abdominal pain probably due to symptomatic ascites Hyperkalemia with potassium of 6.2 on admission End-stage renal disease on hemodialysis due to Goodpasture's syndrome Anemia due to chronic renal disease History of failed renal transplant Noncompliance with dietary restrictions for dialysis Hypertension Anxiety GERD 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 Hemodialysis per nephrology. CT scan of the abdomen and pelvis showed moderate to large amount of free fluid in the abdomen with diffuse anasarca. Continue renal diet. Continue clonidine, C ymbalta, gabapentin and other medications as above. IV fentanyl for pain control. Will send acetic fluid studies. Recheck electrolytes in a.m.
[2020-10-03] MEDS: Amitriptyline HCl 100 MG TAB PO SCH (21:45)
[2020-10-04] MEDS: Fentanyl 100 MCG/2 ML VIAL SLOW IVP PRN ×4 (06:07→21:15)
[2020-10-04] MEDS: Rifampin 300 MG CAP PO SCH ×2 (06:07→21:16)
[2020-10-04 06:34] LABS: #Eosinphils 0.9 thou/uL (0.0-0.7); #Neutrophils 4.7 thou/uL (1.40-6.50); %Basophils 0.6 % (0.0-1.0); %Eosinophils 12.1 % (0.0-10.0); %Lymphocytes 13.2 % (21.0-51.0); %Monocytes 12.7 % (0.0-10.0); %Neutrophils 61.4 % (42.0-75.0); Hemoglobin 7.7 g/dL (14.0-18.0); Mean Corpuscular HGB CONC 31.9 g/dL (32.0-36.0); Mean Corpuscular Hemoglobin 31.4 pg (27.0-31.0); Mean Corpuscular Volume 98.4 fL (78.0-98.0); Mean Platelet Volume 8.4 fL (7.4-10.4); Platelet Count 101 thou/uL (130-400); RBC Distribution Width 16.6 % (11.5-14.5); Red Blood Cell (RBC) Count 2.46 mill/uL (4.70-6.10); White Blood Cell (WBC) Count 7.7 thou/uL (4.8-10.8)
[2020-10-04 06:42] LABS: Anion Gap 18 mmol/L (10-20); BUN (Urea Nitrogen) 51 mg/dL (8.9-20.6); Calc. Creatinine Clearance 19 mL/min (70-130); Calcium 8.6 mg/dL (7.8-10.44); Carbon Dioxide 28 mmol/L (22-29); Chloride 94 mmol/L (98-107); Estimated GFR-MDRD 11; Glucose 103 mg/dL (70-105); Potassium 6.2 mmol/L (3.5-5.1); Sodium 134 mmol/L (136-145)
[2020-10-04] MEDS: Sevelamer Carbonate 800 MG TAB PO SCH ×3 (08:13→18:08)
[2020-10-04] MEDS: cloNIDine 0.3 MG TAB PO SCH ×3 (08:14→21:15)
[2020-10-04] MEDS: Gabapentin 100 MG CAP PO SCH ×2 (08:14→21:14)
[2020-10-04] MEDS: DULoxetine 60 MG CAP PO SCH (08:14)
[2020-10-04] MEDS: Labetalol 100 MG TAB PO SCH ×2 (08:15→21:14)
[2020-10-04] MEDS: Ondansetron ODT 4 MG TAB PO PRN (08:16)
[2020-10-04] MEDS: hydrALAZINE 25 MG TAB PO SCH ×3 (08:17→21:13)
[2020-10-04] MEDS: NIFEdipine XL 90 MG TAB PO SCH ×2 (08:17→21:15)
--- NOTE | 2020-10-04 11:33 | PRG ---
DATE OF SERVICE: 10/04/2020 SUBJECTIVE: Patient was seen and examined at bedside and overnight events noted. Patient denies any shortness of breath or chest pain or palpitation. No history of nausea or vomiting or diarrhea or fever or chills or cramps. OBJECTIVE: General: This is a well-built male, in no apparent distress. Vital Signs: Temperature 98.1. Heart Rate 80. Respiratory rate . Blood pressure 143/89. HEENT: Atraumatic, normocephalic. Oral mucosa is moist. Neck: Supple. Cardiovascular: S1, S2 heard. Rate and rhythm regular. Respiratory: Clear to auscultation. Gastrointestinal: Abdomen is soft. Musculoskeletal: No tenderness. No edema. Dermatologic: No skin rash. Neurologic: Alert and awake and oriented x3. No focal neurologic deficits. Moving all the extremities. Psychiatric: Mood and affect normal. LABORATORY DATA: Potassium is 6.2, BUN is 51, creatinine is 7.5. ASSESSMENT AND PLAN: 1. End-stage renal disease. The patient will continue on dialysis as tolerated. 2. Hyperkalemia, persistent. 3. Edema. 4. Hypertension. 5. Anemia of chronic disease. We will have fistulogram to see if he is having recirculation. Also advised to follow up with his transplant team to evaluate for rejection causing his chronic hyperkalemia. We will have dialysis today. Job ID: [id number]
[2020-10-04] MEDS ORDERED: Iopamidol 300 61% 100 ML VIAL FS ONE (14:39)
--- NOTE | 2020-10-04 15:45 | SPC ---
PROCEDURE: [facility] [place] INTRO CATH DIALY CIRC/AV S PROVIDED CLINICAL HISTORY: Patient end-stage renal disease and right upper extremity arteriovenous dialysis fistula. There is po or clearance from the fistula at dialysis. COMPARISON: CTA chest on 09/14/2020 and 09/07/2020 as well as CTA chest on 08/09/2019 and 11/21/2018 TECHNIQUE: After informed consent was obtained, patient was placed on the angiography table in the supine positi on. Limited sonographic evaluation of the right upper extremity arteriovenous dialysis fistula was performed. The right upper extremity was meticulously prepped and draped in usual sterile fashion. The skin and subcutaneous tissues at the intended puncture site were infiltrated with buffered 1% lid ocaine for local anesthesia. The fistula was accessed utilizing micropuncture technique, and a 4 Samoan introducer sheath was placed. A fistulogram and venogram to the SVC were performed. The arteri ovenous dialysis fistula demonstrated significant dilatation and tortuosity throughout the course of the fistula. As a result, there was suboptimal opacification of the fistula at the level of the ax illary vein and centrally. The introducer sheath was exchanged over a 0.035 inch [place] guidewire for a 4 Samoan glide catheter . The glide catheter was advanced to the level of the axillary vein. Venogram was performed in different projections. Catheter was withdrawn into the proximal fistula. Attempts at compressing the very dilated fistula to reflux the arteriovenous anastomosis were unsuccessful. Exam was terminated. The catheter was removed, and hemostasis was achieved with direct pressure. The patient t olerated the procedure well and without immediate complication. FINDINGS: Significant and diffuse dilatation and tortuosity of the right upper extremity arteriovenous dialysis fistula is seen. There is narrowing involving the proximal SVC, but there is brisk washout of contrast without significant collateral flow seen. An area of narrowing was seen in this region with associated calcification on multiple prior CT angiograms of the chest suggesting a long-standing and chronic process. Arteriovenous anastomosis was unable to be refluxed at this time. IMPRESSION: 1. Diffuse dilatation and tortuosity of the right upper extremity arteriovenous dialysis with focal a nohemi of narrowing seen involving the proximal SVC. This focal area of narrowing is seen on prior CT angiograms of the chest dating back to 2018 suggesting a long-standing process. Associated calcificat ion is also seen in this region on CT examination suggesting chronic long-standing process. There is brisk washout of contrast from the fistula without significant collateral flow seen. 2. Reflux of the arteriovenous anastomosis was unable to be performed due to significant dilatation o f the arteriovenous dialysis fistula and difficulty in applying adequate manual compression.
--- NOTE | 2020-10-04 17:10 | PDOC.HOSPP ---
- Subjective Encounter Date: 10/04/20 Encounter Time: 10:00 Subjective: Patient seen and examined for worsening abdominal pain. Had a diagnostic paracentesis yesterdaytherapeutic paracentesis was not performed. Denies any nausea. No fever or chills. - Objective Vital Signs & Weight: Vital Signs (12 hours) Temp Pulse Resp BP BP Pulse Ox 10/04/20 12:21 98.5 F 92 20 134/90 94 L 10/04/20 08:17 80 143/89 H 10/04/20 08:15 80 143/89 H 10/04/20 08:14 143/89 H 10/04/20 08:00 99 10/04/20 07:03 98.1 F 80 18 143/89 H 99 Weight Weight 192 lb 6.4 oz I&O: 10/03/20 10/04/20 10/05/20 06:59 06:59 06:59 Intake Total 513 Balance 513 Result Diagrams: 10/04/20 06:06 10/04/20 06:06 Radiology Reviewed by me: Yes (CT abdomen reviewed) Hospitalist ROS - Review of Systems Cardiovascular: denies: chest pain, palpitations, orthopnea, paroxysmal noc. dyspnea, edema, light headedness, other Gastrointestinal: denies: nausea, vomiting, abdominal pain, diarrhea, constipation, melena, hematochezia, other - Medication Medications: Active Medications Generic Name Dose Route Start Last Admin Trade Name Freq PRN Reason Stop Dose Admin Acetaminophen 500 mg 10/01/20 20:41 10/01/20 21:04 Acetaminophen 500 Mg Tab PO 500 mg Q6H PRN Administration Fever/Mild Pain Acetaminophen/Codeine Phosphate 1 tab 09/29/20 02:25 10/03/20 21:45 Acetaminophen/Codeine 30-300mg Tablet PO 1 tab Q8H PRN Administration Moderate Pain (4-6) Amitriptyline HCl 100 mg 09/29/20 21:00 10/03/20 21:45 Amitriptyline Hcl 100 Mg Tab PO 100 mg QPM ALANNA Administration Clonidine 0.3 mg 09/29/20 09:00 10/04/20 15:54 Clonidine 0.3 Mg Tab PO Not Given TID ALANNA Diphenhydramine HCl 25 mg 10/02/20 09:49 10/03/20 21:46 Diphenhydramine 25 Mg Cap PO 25 mg Q6H PRN Administration Itching & Insomnia Duloxetine HCl 60 mg 09/29/20 09:00 10/04/20 08:14 Duloxetine 60 Mg Cap PO 60 mg DAILY ALANNA Administration Fentanyl 25 mcg 10/03/20 08:04 10/04/20 14:47 Fentanyl 100 Mcg/2 Ml Vial SLOW IVP 25 mcg Q4H PRN Administration Severe Pain (7-10) Gabapentin 100 mg 09/29/20 09:00 10/04/20 08:14 Gabapentin 100 Mg Cap PO 100 mg BID ALANNA Administration Hydralazine HCl 100 mg 09/29/20 09:00 10/04/20 15:54 Hydralazine 25 Mg Tab PO Not Given TID ALANNA Labetalol HCl 600 mg 09/29/20 09:00 10/04/20 08:15 Labetalol 100 Mg Tab PO 600 mg BID ALANNA Administration Nifedipine 90 mg 09/29/20 09:00 10/04/20 08:17 Nifedipine Xl 90 Mg Tab PO 90 mg BID ALANNA Administration Ondansetron HCl 4 mg 09/29/20 02:25 10/04/20 08:16 Ondansetron Odt 4 Mg Tab PO 4 mg Q6H PRN Administration Nausea/Vomiting Pantoprazole Sodium 40 mg 09/29/20 09:00 10/04/20 08:15 Pantoprazole 40 Mg Tab PO 40 mg DAILY ALANNA Administration Rifampin 300 mg 09/29/20 06:00 10/04/20 06:07 Rifampin 300 Mg Cap PO 10/15/20 23:59 300 mg 0600,2200 ALANNA Administration Sevelamer Carbonate 2,400 mg 09/29/20 08:00 10/04/20 11:09 Sevelamer Carbonate 800 Mg Tab PO 2,400 mg TID-WM ALANNA Administration - Exam General Appearance: NAD Neck: supple, no JVD Heart: RRR, no gallops Respiratory: no wheezes, no ronchi Gastrointestinal: soft, normal bowel sounds, no guarding, no rigidity Extremities: no cyanosis Neurological: no new deficit Hosp A/P - Plan DVT proph w/SCDs (Not on heparin due to anemia) Abdominal pain probably due to symptomatic ascites Hyperkalemia with potassium of 6.2 on admission End-stage renal disease on hemodialysis due to Goodpasture's syndrome Anemia due to chronic renal disease History of failed renal transplant Noncompliance with dietary restrictions for dialysis Hypertension Anxiety GERD 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 SAAG = 1.1. We will consult gastroenterology in a.m. due to persistent ascites. Patient is concerned that he may be having cirrhosis of the liver. Continue clonidine, hydralazine and Procardia XL. Continue PPIs. Pain control.
[2020-10-04] MEDS: Amitriptyline HCl 100 MG TAB PO SCH (21:14)
[2020-10-05] MEDS: diphenhydrAMINE 25 MG CAP PO PRN ×2 (03:26→21:20)
[2020-10-05] MEDS: Fentanyl 100 MCG/2 ML VIAL SLOW IVP PRN ×6 (03:27→22:42)
[2020-10-05] MEDS: Acetaminophen/Codeine 30-300mg Tablet PO PRN (05:48)
[2020-10-05] MEDS: Rifampin 300 MG CAP PO SCH ×2 (05:49→21:18)
[2020-10-05 07:10] LABS: ALT (SGPT) Less than 7 U/L (8-55); AST (SGOT) 9 U/L (5-34); Alkaline Phosphatase 158 U/L (40-110); Anion Gap 14 mmol/L (10-20); BUN (Urea Nitrogen) 35 mg/dL (8.9-20.6); Bilirubin, Total 0.8 mg/dL (0.2-1.2); Calc. Creatinine Clearance 24 mL/min (70-130); Calcium 8.5 mg/dL (7.8-10.44); Carbon Dioxide 29 mmol/L (22-29); Chloride 97 mmol/L (98-107); Estimated GFR-MDRD 15; Glucose 93 mg/dL (70-105); Potassium 5.2 mmol/L (3.5-5.1); Sodium 135 mmol/L (136-145)
[2020-10-05 07:23] LABS: #Eosinphils 0.7 thou/uL (0.0-0.7); #Lymphocytes 0.8 thou/uL (1.20-3.40); #Monocytes 0.7 thou/uL (0.11-0.59); #Neutrophils 3.7 thou/uL (1.40-6.50); %Basophils 0.2 % (0.0-1.0); %Eosinophils 12.3 % (0.0-10.0); %Lymphocytes 12.9 % (21.0-51.0); %Monocytes 11.4 % (0.0-10.0); %Neutrophils 63.2 % (42.0-75.0); Mean Corpuscular HGB CONC 32.6 g/dL (32.0-36.0); Mean Corpuscular Hemoglobin 31.9 pg (27.0-31.0); Mean Corpuscular Volume 97.7 fL (78.0-98.0); Mean Platelet Volume 8.9 fL (7.4-10.4); Platelet Count 91 thou/uL (130-400); RBC Distribution Width 16.6 % (11.5-14.5); Red Blood Cell (RBC) Count 2.19 mill/uL (4.70-6.10); White Blood Cell (WBC) Count 5.8 thou/uL (4.8-10.8)
[2020-10-05] MEDS: Sevelamer Carbonate 800 MG TAB PO SCH ×3 (08:18→18:24)
[2020-10-05] MEDS: NIFEdipine XL 90 MG TAB PO SCH ×2 (08:19→21:17)
[2020-10-05] MEDS: hydrALAZINE 25 MG TAB PO SCH ×3 (08:19→21:16)
[2020-10-05] MEDS: DULoxetine 60 MG CAP PO SCH (08:22)
[2020-10-05] MEDS: Gabapentin 100 MG CAP PO SCH ×2 (08:22→21:18)
[2020-10-05] MEDS: cloNIDine 0.3 MG TAB PO SCH ×3 (08:23→21:16)
[2020-10-05] MEDS ORDERED: Fentanyl 100 MCG/2 ML VIAL SLOW IVP SCH (11:00)
--- NOTE | 2020-10-05 11:33 | PRG ---
DATE OF SERVICE: 10/05/2020 SUBJECTIVE: Patient was seen and examined at bedside and overnight events noted. Patient denies any shortness of breath or chest pain or palpitation. No history of nausea or vomiting or diarrhea or fever or chills or cramps. OBJECTIVE: GENERAL: This is well-built male, in no apparent distress. VITAL SIGNS: Temperature 97.6, heart rate 95, respiratory rate 20, and blood pressure 156/92. HEENT: Atraumatic, normocephalic. Oral mucosa is moist. NECK: Supple. CARDIOVASCULAR: S1, S2 heard. Rate and rhythm regular. RESPIRATORY: Clear to auscultation. GASTROINTESTINAL: Abdomen is soft. MUSCULOSKELETAL: No tenderness. No edema. DERMATOLOGIC: No skin rash. NEUROLOGIC: Alert and awake and oriented x3. No focal neurologic deficits. Moving all the extremities. PSYCHIATRIC: Mood and affect normal. LABORATORY DATA: Potassium 5.2, BUN is 35, and creatinine is 5.83. ASSESSMENT AND PLAN: 1. End-stage renal disease. Plan to have dialysis. 2. Hyperkalemia, better. Fistulogram did not show any stenosis. 3. Edema. 4. Hypertension. 5. Anemia of chronic disease. Fistulogram was unremarkable. Limit potassium intake and the patient does not want to be fluid restricted, so we will remove fluid restriction and the patient was advised to have full dialysis tomorrow for 4 hours for clearance of hyperkalemia. We will follow. We will continue to limit potassium intake. Job ID: [id number]
[2020-10-05] MEDS: Labetalol 100 MG TAB PO SCH ×2 (12:24→21:19)
[2020-10-05] MEDS: Amitriptyline HCl 100 MG TAB PO SCH (21:18)
[2020-10-05] MEDS ORDERED: Oxymetazoline HCl 0.05% (30 ML BOT) NS SCH (21:45)
[2020-10-05] MEDS ORDERED: Silver Nitrate Application 1 EACH ONE (21:56)
[2020-10-05] MEDS ORDERED: Lidocaine 1% w/Epinephrine 1:100K 20 ML VIAL ONE ×2 (22:00→22:14)
--- NOTE | 2020-10-05 22:10 | PDOC.HOSPP ---
- Subjective Encounter Date: 10/05/20 Encounter Time: 09:30 Subjective: Patient seen and examined for abdominal discomfort due to symptomatic ascites. Pain still uncontrolled. Requiring IV narcotics. - Objective Vital Signs & Weight: Vital Signs (12 hours) Temp Pulse Resp BP BP Pulse Ox 10/05/20 21:19 96 162/109 H 10/05/20 21:17 98 162/109 H 10/05/20 21:16 96 162/109 H 10/05/20 19:21 97.5 F L 98 20 162/109 H 97 10/05/20 16:59 98 24 H 95 10/05/20 16:00 99.0 F 102 H 20 150/85 H 93 L 10/05/20 14:34 163/91 H 10/05/20 12:24 140/84 10/05/20 12:00 98.1 F 112 H 18 140/86 96 Weight Weight 192 lb 6.4 oz Result Diagrams: 10/05/20 06:36 10/05/20 06:36 Hospitalist ROS - Review of Systems Cardiovascular: denies: chest pain, palpitations, orthopnea, paroxysmal noc. dyspnea, edema, light headedness, other Gastrointestinal: reports: abdominal pain. denies: nausea, vomiting, diarrhea, constipation, melena, hematochezia, other - Medication Medications: Active Medications Generic Name Dose Route Start Last Admin Trade Name Freq PRN Reason Stop Dose Admin Acetaminophen 500 mg 10/01/20 20:41 10/01/20 21:04 Acetaminophen 500 Mg Tab PO 500 mg Q6H PRN Administration Fever/Mild Pain Acetaminophen/Codeine Phosphate 1 tab 09/29/20 02:25 10/05/20 05:48 Acetaminophen/Codeine 30-300mg Tablet PO 1 tab Q8H PRN Administration Moderate Pain (4-6) Albuterol/Ipratropium 3 ml 10/05/20 16:01 10/05/20 16:59 Ipratropium/Albuterol Sulfate 3 Ml Neb NEB 3 ml Q4H PRN Administration SOB &/or Wheezing Amitriptyline HCl 100 mg 09/29/20 21:00 10/05/20 21:18 Amitriptyline Hcl 100 Mg Tab PO 100 mg QPM ALANNA Administration Clonidine 0.3 mg 09/29/20 09:00 10/05/20 21:16 Clonidine 0.3 Mg Tab PO 0.3 mg TID ALANNA Administration Diphenhydramine HCl 25 mg 10/02/20 09:49 10/05/20 21:20 Diphenhydramine 25 Mg Cap PO 25 mg Q6H PRN Administration Itching & Insomnia Duloxetine HCl 60 mg 09/29/20 09:00 10/05/20 08:22 Duloxetine 60 Mg Cap PO 60 mg DAILY ALANNA Administration Fentanyl 25 mcg 10/03/20 08:04 10/05/20 18:18 Fentanyl 100 Mcg/2 Ml Vial SLOW IVP 25 mcg Q4H PRN Administration Severe Pain (7-10) Gabapentin 100 mg 09/29/20 09:00 10/05/20 21:18 Gabapentin 100 Mg Cap PO 100 mg BID ALANNA Administration Hydralazine HCl 100 mg 09/29/20 09:00 10/05/20 21:16 Hydralazine 25 Mg Tab PO 100 mg TID ALANNA Administration Labetalol HCl 600 mg 09/29/20 09:00 10/05/20 21:19 Labetalol 100 Mg Tab PO 600 mg BID ALANNA Administration Nifedipine 90 mg 09/29/20 09:00 10/05/20 21:17 Nifedipine Xl 90 Mg Tab PO 90 mg BID ALANNA Administration Ondansetron HCl 4 mg 09/29/20 02:25 10/04/20 08:16 Ondansetron Odt 4 Mg Tab PO 4 mg Q6H PRN Administration Nausea/Vomiting Pantoprazole Sodium 40 mg 09/29/20 09:00 10/05/20 08:22 Pantoprazole 40 Mg Tab PO 40 mg DAILY ALANNA Administration Rifampin 300 mg 09/29/20 06:00 10/05/20 21:18 Rifampin 300 Mg Cap PO 10/15/20 23:59 300 mg 0600,2200 ALANNA Administration Sevelamer Carbonate 2,400 mg 09/29/20 08:00 10/05/20 18:24 Sevelamer Carbonate 800 Mg Tab PO Not Given TID-WM ALANNA - Exam General Appearance: ill appearing Heart: RRR, no gallops Respiratory: no wheezes, no rales Gastrointestinal: soft, normal bowel sounds, no guarding, no rigidity, tender to palpation (Generalized) Extremities: no cyanosis, no clubbing Hosp A/P - Plan DVT proph w/SCDs (No heparin due to anemia) Abdominal pain probably due to symptomatic ascites Hyperkalemia with potassium of 6.2 on admission End-stage renal disease on hemodialysis due to Goodpasture's syndrome Anemia due to chronic renal disease History of failed renal transplant Noncompliance with dietary restrictions for dialysis Hypertension Anxiety GERD 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 Patient had extensive workup in the past for ascites. The ascites is probably due to end-stage renal disease with probably cardiomyopathy. Continue pain control. Continue antihypertensives including clonidine, hydralazine, labetalol and Procardia XL. Monitor H&H.
--- NOTE | 2020-10-05 22:51 | PDOC.BPN ---
- Brief Progress Note Encounter Date: 10/05/20 Encounter Time: 22:00 I was called from the emergency department to the floor for complaints of epistaxis that cannot be controlled. Upon entry into the room patient was bent over with quickly dripping blood coming from his left nare. He was not applying pressure at that time and was coughing into a cup. I first attempted digital pressure for 5 minutes consistently to both anterior naris. I then inspected the left naris and identified bleeding coming from the left Caio box plexus which was addressed with a single silver nitrate stick. After this failed I packed the left nare with 2 x 2 gauze soaked in lidocaine with epinephrine and applied 5 additional minutes of digital pressure. Once those soaked through I removed them and sprayed Afrin into the anterior left nare and posteriorly as well and replaced new gauze soaked in lidocaine with epinephrine and applied 5 additional minutes of digital pressure. Patient started to bleed around the gauze so I then placed a rapid Rhino pack soaked in lidocaine with epinephrine along the left nasal floor and inflated it with 15 cc. After this patient stated he no longer felt blood going down the back of his throat and he had no additional oozing coming from a left nare anteriorly. The patient's CABLE LAYER He Jaimes was present throughout this time. Current plan is to keep packing in place and have patient be seen by ENT tomorrow. I reiterated that if packing is to be left in greater than 24 hours patient will need antibiotic prophylaxis. Patient has apparently needed transfusions of packed red blood cells during this admission. He is also thrombocytopenic down to the level of 91. If bleeding continues may need to consider platelet replacement. Patient reported that he has a history of epistaxis requiring packing for control greater than 1 year ago.
--- NOTE | 2020-10-05 22:52 | PDOC.EVN ---
Event Note - Event Note Event Note: Was called by nursing that patient was having a nose bleed. Afrin and ice pack ordered initially. After holding pressure for over 20 minutes there was no change in bleeding. Coags and CBC ordered, will transfuse PRBC if needed. ER MD called at this time. Dr. Bone attempted silver nitrate and gauze packing. Was able to contain bleeding using rhino rocket. ENT consult in am.
[2020-10-05 22:53] LABS: INR-International Normal Ratio 1.4; Prothrombin Time 17.3 sec (12.0-14.7)
[2020-10-05 22:54] LABS: PTT 71.4 sec (22.9-36.1)
[2020-10-05 22:55] LABS: #Eosinphils 0.8 thou/uL (0.0-0.7); #Lymphocytes 0.9 thou/uL (1.20-3.40); #Monocytes 0.7 thou/uL (0.11-0.59); #Neutrophils 4.4 thou/uL (1.40-6.50); %Basophils 0.2 % (0.0-1.0); %Eosinophils 11.7 % (0.0-10.0); %Lymphocytes 13.6 % (21.0-51.0); %Monocytes 10.1 % (0.0-10.0); %Neutrophils 64.4 % (42.0-75.0); Mean Corpuscular HGB CONC 31.9 g/dL (32.0-36.0); Mean Corpuscular Volume 97.1 fL (78.0-98.0); Mean Platelet Volume 8.6 fL (7.4-10.4); Platelet Count 98 thou/uL (130-400); RBC Distribution Width 16.6 % (11.5-14.5); Red Blood Cell (RBC) Count 2.24 mill/uL (4.70-6.10); White Blood Cell (WBC) Count 6.8 thou/uL (4.8-10.8)
[2020-10-06] MEDS: Ondansetron ODT 4 MG TAB PO PRN (01:32)
[2020-10-06] MEDS ORDERED: Morphine 2 MG/ML VIAL SLOW IVP SCH (01:45)
[2020-10-06] MEDS: Rifampin 300 MG CAP PO SCH ×2 (04:00→21:07)
[2020-10-06] MEDS: Fentanyl 100 MCG/2 ML VIAL SLOW IVP PRN ×4 (04:00→17:33)
[2020-10-06] MEDS ORDERED: Oxymetazoline HCl 0.05% (30 ML BOT) NS PRN (06:08)
[2020-10-06 06:20] LABS: #Eosinphils 0.8 thou/uL (0.0-0.7); #Lymphocytes 0.9 thou/uL (1.20-3.40); #Monocytes 0.7 thou/uL (0.11-0.59); #Neutrophils 4.2 thou/uL (1.40-6.50); %Basophils 0.4 % (0.0-1.0); %Eosinophils 11.9 % (0.0-10.0); %Lymphocytes 13.3 % (21.0-51.0); %Monocytes 10.7 % (0.0-10.0); %Neutrophils 63.6 % (42.0-75.0); Hemoglobin 6.3 g/dL (14.0-18.0); Mean Corpuscular HGB CONC 33.4 g/dL (32.0-36.0); Mean Corpuscular Hemoglobin 31.8 pg (27.0-31.0); Mean Corpuscular Volume 95.4 fL (78.0-98.0); Mean Platelet Volume 9.1 fL (7.4-10.4); Platelet Count 91 thou/uL (130-400); RBC Distribution Width 16.5 % (11.5-14.5); Red Blood Cell (RBC) Count 1.97 mill/uL (4.70-6.10); White Blood Cell (WBC) Count 6.6 thou/uL (4.8-10.8)
[2020-10-06 06:37] LABS: Anion Gap 15 mmol/L (10-20); BUN (Urea Nitrogen) 44 mg/dL (8.9-20.6); Calc. Creatinine Clearance 20 mL/min (70-130); Calcium 8.4 mg/dL (7.8-10.44); Carbon Dioxide 28 mmol/L (22-29); Chloride 95 mmol/L (98-107); Estimated GFR-MDRD 11; Glucose 88 mg/dL (70-105); Potassium 6.3 mmol/L (3.5-5.1); Sodium 132 mmol/L (136-145)
--- NOTE | 2020-10-06 08:20 | EKG ---
Test Reason : STAT Blood Pressure : / mmHG Vent. Rate : 095 BPM Atrial Rate : 095 BPM P-R Int : 166 ms QRS Dur : 092 ms QT Int : 358 ms P-R-T Axes : 056 021 056 degrees QTc Int : 449 ms Normal sinus rhythm Septal infarct , age undetermined Abnormal ECG Confirmed by MICHELLE CHEATHAM MD ([id number]) on 10/06/2020 8:20:11 AM Referred By: ENDY Confirmed By:MICHELLE CHEATHAM MD
[2020-10-06] MEDS ORDERED: EPOETIN ALFA-EPBX (ESRD) 10,000 UNIT/ML VIAL IVP SCH (08:45)
[2020-10-06] MEDS: cloNIDine 0.3 MG TAB PO SCH ×3 (09:16→21:02)
[2020-10-06] MEDS: Gabapentin 100 MG CAP PO SCH ×2 (09:16→21:05)
[2020-10-06] MEDS: Sevelamer Carbonate 800 MG TAB PO SCH ×3 (09:16→18:00)
[2020-10-06] MEDS: Sodium Chloride 0.65% Nasal 44 ML BOT EA NARE SCH ×3 (09:17→21:07)
[2020-10-06] MEDS: NIFEdipine XL 90 MG TAB PO SCH ×2 (09:17→21:05)
[2020-10-06] MEDS: hydrALAZINE 25 MG TAB PO SCH ×3 (09:17→21:02)
[2020-10-06] MEDS: Labetalol 100 MG TAB PO SCH ×2 (09:17→21:07)
[2020-10-06] MEDS ORDERED: Fentanyl 100 MCG/2 ML VIAL SLOW IVP SCH (13:30)
[2020-10-06] MEDS: Saccharomyces boulardii 250 MG CAP PO SCH (13:55)
[2020-10-06] MEDS: DULoxetine 60 MG CAP PO SCH (13:55)
--- NOTE | 2020-10-06 16:30 | PDOC.HOSPP ---
- Subjective Encounter Date: 10/06/20 Encounter Time: 09:30 Subjective: Patient seen and examined for abdominal discomfort. Developed epistaxis last night. Nasal rocket placed by the ER resident. Complains of discomfort due to this. Abdominal pain still uncontrolled. Denies any nausea or vomiting. Hemodialysis. - Objective Vital Signs & Weight: Vital Signs (12 hours) Temp Pulse Resp BP Pulse Ox 10/06/20 13:00 170/77 H 10/06/20 08:00 94 L 10/06/20 07:00 98.1 F 101 H 19 138/82 91 L Weight Weight 192 lb 6.4 oz Result Diagrams: 10/06/20 05:34 10/06/20 05:34 Hospitalist ROS - Review of Systems Respiratory: denies: cough, dry, shortness of breath, hemoptysis, SOB with excertion, pleuritic pain, sputum, wheezing, other Cardiovascular: denies: chest pain, palpitations, orthopnea, paroxysmal noc. dyspnea, edema, light headedness, other - Medication Medications: Active Medications Generic Name Dose Route Start Last Admin Trade Name Freq PRN Reason Stop Dose Admin Acetaminophen 500 mg 10/01/20 20:41 10/01/20 21:04 Acetaminophen 500 Mg Tab PO 500 mg Q6H PRN Administration Fever/Mild Pain Acetaminophen/Codeine Phosphate 1 tab 09/29/20 02:25 10/05/20 05:48 Acetaminophen/Codeine 30-300mg Tablet PO 1 tab Q8H PRN Administration Moderate Pain (4-6) Albuterol/Ipratropium 3 ml 10/05/20 16:01 10/05/20 16:59 Ipratropium/Albuterol Sulfate 3 Ml Neb NEB 3 ml Q4H PRN Administration SOB &/or Wheezing Amitriptyline HCl 100 mg 09/29/20 21:00 10/05/20 21:18 Amitriptyline Hcl 100 Mg Tab PO 100 mg QPM ALANNA Administration Clonidine 0.3 mg 09/29/20 09:00 10/06/20 14:31 Clonidine 0.3 Mg Tab PO Not Given TID ALANNA Diphenhydramine HCl 25 mg 10/02/20 09:49 10/05/20 21:20 Diphenhydramine 25 Mg Cap PO 25 mg Q6H PRN Administration Itching & Insomnia Duloxetine HCl 60 mg 09/29/20 09:00 10/06/20 13:55 Duloxetine 60 Mg Cap PO Not Given DAILY [facility] Fentanyl 25 mcg 10/03/20 08:04 10/06/20 13:04 Fentanyl 100 Mcg/2 Ml Vial SLOW IVP 25 mcg Q4H PRN Administration Severe Pain (7-10) Gabapentin 100 mg 09/29/20 09:00 10/06/20 09:16 Gabapentin 100 Mg Cap PO Not Given BID [facility] Hydralazine HCl 100 mg 09/29/20 09:00 10/06/20 14:32 Hydralazine 25 Mg Tab PO Not Given TID [facility] Labetalol HCl 600 mg 09/29/20 09:00 10/06/20 09:17 Labetalol 100 Mg Tab PO Not Given BID [facility] Nifedipine 90 mg 09/29/20 09:00 10/06/20 09:17 Nifedipine Xl 90 Mg Tab PO Not Given BID [facility] Ondansetron HCl 4 mg 09/29/20 02:25 10/06/20 01:32 Ondansetron Odt 4 Mg Tab PO 4 mg Q6H PRN Administration Nausea/Vomiting Pantoprazole Sodium 40 mg 09/29/20 09:00 10/06/20 13:55 Pantoprazole 40 Mg Tab PO Not Given DAILY [facility] Rifampin 300 mg 09/29/20 06:00 10/06/20 04:00 Rifampin 300 Mg Cap PO 10/15/20 23:59 300 mg 0600,2200 ALANNA Administration Saccharomyces Boulardii 250 mg 10/06/20 09:00 10/06/20 13:55 Saccharomyces Boulardii 250 Mg Cap PO Not Given DAILY [facility] Sevelamer Carbonate 2,400 mg 09/29/20 08:00 10/06/20 13:55 Sevelamer Carbonate 800 Mg Tab PO Not Given TID-WM [facility] Sodium Chloride 0 ml 10/06/20 09:00 10/06/20 14:32 Sodium Chloride 0.65% Nasal 44 Ml Bot EA NARE Not Given TID ALANNA - Exam General Appearance: NAD Neck: supple Heart: RRR, no gallops Respiratory: no wheezes, no ronchi Gastrointestinal: soft, no guarding, no rigidity, tender to palpation (Generalized tenderness) Neurological: no new deficit Hosp A/P - Plan DVT proph w/SCDs Abdominal pain probably due to symptomatic ascites Epistaxis Hyperkalemia End-stage renal disease on hemodialysis due to Goodpasture's syndrome Anemia due to chronic renal disease History of failed renal transplant Noncompliance with dietary restrictions for dialysis Hypertension Anxiety GERD 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 Case discussed with ENT who recommended discontinuing and close monitoring. DC home once cleared by nephrology. Patient continues to have significant abdominal discomfort and is noncompliant with low potassium/renal diet. Continue current antihypertensivesclonidine, labetalol, Procardia XL and hydralazine. Check labs in a.m.
--- NOTE | 2020-10-06 17:25 | PRG ---
DATE OF SERVICE: 10/06/2020 SUBJECTIVE: Patient was seen and examined at bedside and overnight events noted. Patient denies any shortness of breath or chest pain or palpitation. No history of nausea or vomiting or diarrhea or fever or chills or cramps. OBJECTIVE: GENERAL: This is well-built male, in no apparent distress. VITAL SIGNS: Temperature . Pulse 101. Respiratory rate 18. Blood pressure 138/82. HEENT: Atraumatic, normocephalic. Oral mucosa is moist. NECK: Supple. CARDIOVASCULAR: S1, S2 heard. Rate and rhythm regular. RESPIRATORY: Clear to auscultation. GASTROINTESTINAL: Abdomen is soft. MUSCULOSKELETAL: No tenderness. No edema. DERMATOLOGIC: No skin rash. NEUROLOGIC: Alert and awake and oriented x3. No focal neurologic deficits. Moving all the extremities. PSYCHIATRIC: Mood and affect normal. LABORATORY DATA: Potassium 6.3, BUN is 44, creatinine 7.25. ASSESSMENT AND PLAN: 1. End-stage renal disease. Continue dialysis Friday, Friday, Friday. 2. Hyperkalemia. Advised to have regular session of dialysis. The patient had been shortening treatment. Continue low-potassium diet. 3. Edema, remove fluid. 4. Hypertension. 5. Anemia of chronic disease. PLAN: To continue on dialysis as tolerated. Job ID: [id number]
[2020-10-06] MEDS: Acetaminophen 500 MG TAB PO PRN (17:55)
[2020-10-06] MEDS: Amitriptyline HCl 100 MG TAB PO SCH (21:02)
[2020-10-06] MEDS: Acetaminophen/Codeine 30-300mg Tablet PO PRN (21:06)
[2020-10-07] MEDS: Ondansetron ODT 4 MG TAB PO PRN ×3 (00:27→16:02)
[2020-10-07] MEDS: Rifampin 300 MG CAP PO SCH ×2 (05:12→21:54)
[2020-10-07] MEDS: Fentanyl 100 MCG/2 ML VIAL SLOW IVP PRN ×5 (05:14→21:37)
[2020-10-07 07:40] LABS: Anion Gap 16 mmol/L (10-20); BUN (Urea Nitrogen) 36 mg/dL (8.9-20.6); Calc. Creatinine Clearance 25 mL/min (70-130); Calcium 8.8 mg/dL (7.8-10.44); Carbon Dioxide 32 mmol/L (22-29); Chloride 92 mmol/L (98-107); Estimated GFR-MDRD 15; Glucose 89 mg/dL (70-105); Potassium 5.5 mmol/L (3.5-5.1); Sodium 134 mmol/L (136-145)
[2020-10-07] MEDS: Saccharomyces boulardii 250 MG CAP PO SCH (08:22)
[2020-10-07] MEDS: Labetalol 100 MG TAB PO SCH ×2 (08:22→22:28)
[2020-10-07] MEDS: NIFEdipine XL 90 MG TAB PO SCH ×2 (08:22→22:26)
[2020-10-07] MEDS: cloNIDine 0.3 MG TAB PO SCH ×3 (08:23→21:48)
[2020-10-07] MEDS: Gabapentin 100 MG CAP PO SCH ×2 (08:23→21:49)
[2020-10-07] MEDS: DULoxetine 60 MG CAP PO SCH (08:23)
[2020-10-07] MEDS: hydrALAZINE 25 MG TAB PO SCH ×3 (08:23→22:25)
[2020-10-07] MEDS: Sevelamer Carbonate 800 MG TAB PO SCH ×3 (08:24→17:28)
[2020-10-07] MEDS: Acetaminophen/Codeine 30-300mg Tablet PO PRN ×3 (08:24→23:52)
[2020-10-07] MEDS: Sodium Chloride 0.65% Nasal 44 ML BOT EA NARE SCH ×3 (08:24→21:51)
--- NOTE | 2020-10-07 13:03 | PDOC.HOSPP ---
- Subjective Encounter Date: 10/07/20 Encounter Time: 10:15 Subjective: c/o abd pain, no nausea or diarrhea had a normal bm overnight wants morphine, and fentanyl is not relieving his pain as much as morphine does per patient - Objective Vital Signs & Weight: Vital Signs (12 hours) Temp Pulse Resp BP Pulse Ox 10/07/20 08:00 91 L 10/07/20 07:49 98.2 F 106 H 20 140/82 91 L Weight Weight 192 lb 6.4 oz I&O: 10/06/20 10/07/20 10/08/20 06:59 06:59 06:59 Output Total 2400 Balance -2400 Result Diagrams: 10/06/20 05:34 10/07/20 06:14 Hospitalist ROS - Medication Medications: Active Medications Generic Name Dose Route Start Last Admin Trade Name Freq PRN Reason Stop Dose Admin Acetaminophen 500 mg 10/01/20 20:41 10/06/20 17:55 Acetaminophen 500 Mg Tab PO 500 mg Q6H PRN Administration Fever/Mild Pain Acetaminophen/Codeine Phosphate 1 tab 09/29/20 02:25 10/07/20 08:24 Acetaminophen/Codeine 30-300mg Tablet PO 1 tab Q8H PRN Administration Moderate Pain (4-6) Albuterol/Ipratropium 3 ml 10/05/20 16:01 10/05/20 16:59 Ipratropium/Albuterol Sulfate 3 Ml Neb NEB 3 ml Q4H PRN Administration SOB &/or Wheezing Amitriptyline HCl 100 mg 09/29/20 21:00 10/06/20 21:02 Amitriptyline Hcl 100 Mg Tab PO 100 mg QPM ALANNA Administration Clonidine 0.3 mg 09/29/20 09:00 10/07/20 08:23 Clonidine 0.3 Mg Tab PO 0.3 mg TID ALANNA Administration Diphenhydramine HCl 25 mg 10/02/20 09:49 10/05/20 21:20 Diphenhydramine 25 Mg Cap PO 25 mg Q6H PRN Administration Itching & Insomnia Duloxetine HCl 60 mg 09/29/20 09:00 10/07/20 08:23 Duloxetine 60 Mg Cap PO 60 mg DAILY ALANNA Administration Fentanyl 25 mcg 10/03/20 08:04 10/07/20 09:10 Fentanyl 100 Mcg/2 Ml Vial SLOW IVP 25 mcg Q4H PRN Administration Severe Pain (7-10) Gabapentin 100 mg 09/29/20 09:00 10/07/20 08:23 Gabapentin 100 Mg Cap PO 100 mg BID ALANNA Administration Hydralazine HCl 100 mg 09/29/20 09:00 10/07/20 08:23 Hydralazine 25 Mg Tab PO 100 mg TID ALANNA Administration Labetalol HCl 600 mg 09/29/20 09:00 10/07/20 08:22 Labetalol 100 Mg Tab PO 600 mg BID ALANNA Administration Nifedipine 90 mg 09/29/20 09:00 10/07/20 08:22 Nifedipine Xl 90 Mg Tab PO 90 mg BID ALANNA Administration Ondansetron HCl 4 mg 09/29/20 02:25 10/07/20 05:23 Ondansetron Odt 4 Mg Tab PO 4 mg Q6H PRN Administration Nausea/Vomiting Pantoprazole Sodium 40 mg 09/29/20 09:00 10/07/20 08:24 Pantoprazole 40 Mg Tab PO 40 mg DAILY ALANNA Administration Rifampin 300 mg 09/29/20 06:00 10/07/20 05:12 Rifampin 300 Mg Cap PO 10/15/20 23:59 300 mg 0600,2200 ALANNA Administration Saccharomyces Boulardii 250 mg 10/06/20 09:00 10/07/20 08:22 Saccharomyces Boulardii 250 Mg Cap PO 250 mg DAILY [facility]ANNA Administration Sevelamer Carbonate 2,400 mg 09/29/20 08:00 10/07/20 12:00 Sevelamer Carbonate 800 Mg Tab PO Not Given TID-WM [facility]AN[facility] Sodium Chloride 0 ml 10/06/20 09:00 10/07/20 08:24 Sodium Chloride 0.65% Nasal 44 Ml Bot EA NARE Not Given TID ALANNA Sodium Polystyrene Sulfonate 15 gm 10/07/20 11:30 10/07/20 12:11 Sodium Polystyrene Sulfonate 15 Gm/60 Ml Bot PO 10/07/20 14:00 15 gm ONE ALANNA Administration - Exam General Appearance: awake alert, ill appearing Eye: PERRL, anicteric sclera ENT: no oropharyngeal lesions, moist mucosa Neck: supple, no JVD Heart: RRR, no murmur Respiratory: no wheezes, no rales Gastrointestinal: soft, normal bowel sounds, distended Extremities: no cyanosis, no edema Extremities - other findings: engorged fistulas b/l arms Neurological: cranial nerve grossly intact, no focal deficits Psychiatric: normal affect, A&O x 3 Hosp A/P (1) Abdominal pain Code(s): R10.9 - UNSPECIFIED ABDOMINAL PAIN Status: Acute Qualifiers: Abdominal location: right lower quadrant Qualified Code(s): R10.31 - Right lower quadrant pain (2) Moderate protein-calorie malnutrition Code(s): E44.0 - MODERATE PROTEIN-CALORIE MALNUTRITION Status: Chronic (3) FTT (failure to thrive) in adult Status: Chronic (4) Acute on chronic anemia Code(s): D64.9 - ANEMIA, UNSPECIFIED Status: Acute (5) History of endocarditis Code(s): Z86.79 - PERSONAL HISTORY OF OTHER DISEASES OF THE CIRCULATORY SYSTEM Status: Chronic (6) MRSA bacteremia Code(s): R78.81 - BACTEREMIA; B95.62 - METHICILLIN RESIS STAPH INFCT CAUSING DISEASES CLASSD ELSWHR Status: Chronic (7) Ascites Code(s): R18.8 - OTHER ASCITES Status: Chronic Qualifiers: Ascites type: other type Qualified Code(s): R18.8 - Other ascites (8) Cardiomyopathy Code(s): I42.9 - CARDIOMYOPATHY, UNSPECIFIED Status: Chronic Qualifiers: Cardiomyopathy type: dilated Qualified Code(s): I42.0 - Dilated cardiomyopathy (9) Chronic pain Code(s): G89.29 - OTHER CHRONIC PAIN Status: Chronic Qualifiers: Chronic pain type: chronic pain syndrome Qualified Code(s): G89.4 - Chronic pain syndrome (10) ESRD (end stage renal disease) on dialysis Code(s): N18.6 - END STAGE RENAL DISEASE; Z99.2 - DEPENDENCE ON RENAL DIALYSIS Status: Chronic (11) GERD (gastroesophageal reflux disease) Code(s): K21.9 - GASTRO-ESOPHAGEAL REFLUX DISEASE WITHOUT ESOPHAGITIS Status: Chronic Qualifiers: Esophagitis presence: without esophagitis Qualified Code(s): K21.9 - Gastro-esophageal reflux disease without esophagitis (12) H/O kidney transplant Status: Chronic (13) H/O mitral valve replacement Code(s): Z95.2 - PRESENCE OF PROSTHETIC HEART VALVE Status: Chronic (14) Hypertension Code(s): I10 - ESSENTIAL (PRIMARY) HYPERTENSION Status: Chronic Qualifiers: Hypertension type: essential hypertension Qualified Code(s): I10 - Essential (primary) hypertension (15) Thrombocytopenia Code(s): D69.6 - THROMBOCYTOPENIA, UNSPECIFIED Status: Chronic (16) Volume overload Code(s): E87.70 - FLUID OVERLOAD, UNSPECIFIED Status: Acute - Plan had attempted paracentesis on with no significant amount seen on usg c/o severe abd pain with reg bm, on fentanyl q4h clinically has signs of ascites, also has low albumin with abd wall edema as well, likely will need a repeat attempt at paracentesis on friday. prognosis guarded with multiple med issues, non compliance, will get palliative care consultation for goals of care/hospice eval if he agrees. is on rifampin oral and vanc with HD (will confirm if he is getting this here) continue clonidine tid, cymbalta, amitriptyline, gabapentin, labetalol and procardia xl to ambulate as tolerated with fall precautions in view of him taking fentanyl iv q4h
--- NOTE | 2020-10-07 17:26 | PRG ---
DATE OF SERVICE: 10/07/2020 OBJECTIVE: GENERAL: This is a well-built male, in no apparent distress. VITAL SIGNS: Temperature 98.2, pulse 106, respiratory rate 20, and blood pressure 140/82. LABORATORY DATA: Initial labs: Potassium 5.5, BUN is 36, and creatinine is 5.5. ASSESSMENT AND PLAN: 1. End-stage renal disease, continue on dialysis. 2. Hyperkalemia. 3. Edema. 4. Hypertension. 5. Anemia of chronic disease. Continue dialysis on Friday, Friday, and Friday. For hyperkalemia, we will give a dose of Kayexalate and monitor the potassium level. Job ID: [id number]
[2020-10-07] MEDS: Amitriptyline HCl 100 MG TAB PO SCH (21:47)
[2020-10-07] MEDS: diphenhydrAMINE 25 MG CAP PO PRN (22:22)
[2020-10-08] MEDS: Fentanyl 100 MCG/2 ML VIAL SLOW IVP PRN ×4 (01:34→18:33)
[2020-10-08] MEDS: Acetaminophen 500 MG TAB PO PRN (01:47)
[2020-10-08] MEDS ORDERED: Fluticasone Propionate Nasal Spray 16 gm Bottle NASAL PRN (05:47)
[2020-10-08] MEDS: Rifampin 300 MG CAP PO SCH ×2 (05:48→21:29)
[2020-10-08] MEDS: cloNIDine 0.3 MG TAB PO SCH ×3 (08:58→21:28)
[2020-10-08] MEDS: DULoxetine 60 MG CAP PO SCH (08:58)
[2020-10-08] MEDS: Saccharomyces boulardii 250 MG CAP PO SCH (09:01)
[2020-10-08] MEDS: Gabapentin 100 MG CAP PO SCH ×2 (09:01→21:25)
[2020-10-08] MEDS: hydrALAZINE 25 MG TAB PO SCH ×3 (09:01→21:26)
[2020-10-08] MEDS: Sodium Chloride 0.65% Nasal 44 ML BOT EA NARE SCH ×3 (09:02→21:34)
[2020-10-08] MEDS: Sevelamer Carbonate 800 MG TAB PO SCH ×3 (09:02→18:40)
[2020-10-08] MEDS: NIFEdipine XL 90 MG TAB PO SCH ×2 (09:02→21:29)
[2020-10-08] MEDS: Acetaminophen/Codeine 30-300mg Tablet PO PRN ×2 (09:07→21:26)
[2020-10-08] MEDS: Ondansetron ODT 4 MG TAB PO PRN (11:48)
[2020-10-08] MEDS ORDERED: methylPREDNISolone Sod Succ/PF 125 MG/2 ML VIAL IVP SCH (12:15)
[2020-10-08] MEDS ORDERED: Bacteriostatic Water 30 ML VIAL FS PRN (12:30)
[2020-10-08] MEDS ORDERED: methylPREDNISolone Sod Succ 40 MG VIAL IVP SCH (12:30)
[2020-10-08] MEDS: Labetalol 100 MG TAB PO SCH ×2 (12:39→21:27)
--- NOTE | 2020-10-08 13:43 | PDOC.HOSPP ---
- Subjective Encounter Date: 10/08/20 Encounter Time: 10:45 Subjective: still c/o abd pain in rlq, no nausea, having reg bm and tolerating oral diet no sob - Objective Vital Signs & Weight: Vital Signs (12 hours) Temp Pulse Resp BP BP BP Pulse Ox 10/08/20 12:39 102 H 153/89 H 10/08/20 11:28 99.3 F 101 H 20 153/89 H 93 L 10/08/20 08:58 165/99 H 10/08/20 05:15 99 F 103 H 20 140/88 90 L 10/08/20 03:20 98.3 F 10/08/20 01:51 110 H 24 H 88 L 10/08/20 01:47 100.2 F H Weight Weight 192 lb 8 oz I&O: 10/07/20 10/08/20 10/09/20 06:59 06:59 06:59 Intake Total 240 Output Total 2400 0 Balance -2400 240 Result Diagrams: 10/06/20 05:34 10/07/20 06:14 Additional Labs: Accuchecks 10/07/20 16:10 POC Glucose 97 Hospitalist ROS - Medication Medications: Active Medications Generic Name Dose Route Start Last Admin Trade Name Freq PRN Reason Stop Dose Admin Acetaminophen 500 mg 10/01/20 20:41 10/08/20 01:47 Acetaminophen 500 Mg Tab PO 500 mg Q6H PRN Administration Fever/Mild Pain Acetaminophen/Codeine Phosphate 1 tab 09/29/20 02:25 10/08/20 09:07 Acetaminophen/Codeine 30-300mg Tablet PO 1 tab Q8H PRN Administration Moderate Pain (4-6) Albuterol/Ipratropium 3 ml 10/05/20 16:01 10/08/20 01:51 Ipratropium/Albuterol Sulfate 3 Ml Neb NEB 3 ml Q4H PRN Administration SOB &/or Wheezing Amitriptyline HCl 100 mg 09/29/20 21:00 10/07/20 21:47 Amitriptyline Hcl 100 Mg Tab PO 100 mg QPM ALANNA Administration Clonidine 0.3 mg 09/29/20 09:00 10/08/20 08:58 Clonidine 0.3 Mg Tab PO 0.3 mg TID ALANNA Administration Diphenhydramine HCl 25 mg 10/02/20 09:49 10/07/20 22:22 Diphenhydramine 25 Mg Cap PO 25 mg Q6H PRN Administration Itching & Insomnia Duloxetine HCl 60 mg 09/29/20 09:00 10/08/20 08:58 Duloxetine 60 Mg Cap PO 60 mg DAILY ALANNA Administration Fentanyl 25 mcg 10/03/20 08:04 10/08/20 11:49 Fentanyl 100 Mcg/2 Ml Vial SLOW IVP 25 mcg Q4H PRN Administration Severe Pain (7-10) Fluticasone Propionate 0 gm 10/08/20 05:47 10/08/20 05:56 Fluticasone Propionate Nasal [place] 16 Gm Bottle NASAL 1 spray DAILYPRN PRN Administration ALLERGIES/CONGESTION Gabapentin 100 mg 09/29/20 09:00 10/08/20 09:01 Gabapentin 100 Mg Cap PO 100 mg BID ALANNA Administration Hydralazine HCl 100 mg 09/29/20 09:00 10/08/20 09:01 Hydralazine 25 Mg Tab PO 100 mg TID ALANNA Administration Labetalol HCl 600 mg 09/29/20 09:00 10/08/20 12:39 Labetalol 100 Mg Tab PO 600 mg BID ALANNA Administration Methylprednisolone Sodium Succinate 40 mg 10/08/20 12:30 10/08/20 12:47 Methylprednisolone Sod Succ 40 Mg Vial IVP 10/08/20 14:00 40 mg NOW ALANNA Administration Nifedipine 90 mg 09/29/20 09:00 10/08/20 09:02 Nifedipine Xl 90 Mg Tab PO 90 mg BID ALANNA Administration Ondansetron HCl 4 mg 09/29/20 02:25 10/08/20 11:48 Ondansetron Odt 4 Mg Tab PO 4 mg Q6H PRN Administration Nausea/Vomiting Pantoprazole Sodium 40 mg 09/29/20 09:00 10/08/20 09:01 Pantoprazole 40 Mg Tab PO 40 mg DAILY ALANNA Administration Rifampin 300 mg 09/29/20 06:00 10/08/20 05:48 Rifampin 300 Mg Cap PO 10/15/20 23:59 300 mg 0600,2200 ALANNA Administration Saccharomyces Boulardii 250 mg 10/06/20 09:00 10/08/20 09:01 Saccharomyces Boulardii 250 Mg Cap PO 250 mg DAILY ALANNA Administration Sevelamer Carbonate 2,400 mg 09/29/20 08:00 10/08/20 12:40 Sevelamer Carbonate 800 Mg Tab PO Not Given TID-WM ALANNA Sodium Chloride 0 ml 10/06/20 09:00 10/08/20 09:02 Sodium Chloride 0.65% Nasal 44 Ml Bot EA NARE 1 spray TID ALANNA Administration - Exam General Appearance: awake alert Eye: PERRL, anicteric sclera ENT: no oropharyngeal lesions, moist mucosa Neck: supple, no JVD Heart: RRR, no murmur Respiratory: no wheezes, no rales Gastrointestinal: soft, normal bowel sounds, distended Extremities: no cyanosis, no edema Neurological: cranial nerve grossly intact, no focal deficits Psychiatric: A&O x 3 Hosp A/P (1) Abdominal pain Code(s): R10.9 - UNSPECIFIED ABDOMINAL PAIN Status: Acute Qualifiers: Abdominal location: right lower quadrant Qualified Code(s): R10.31 - Right lower quadrant pain (2) Moderate protein-calorie malnutrition Code(s): E44.0 - MODERATE PROTEIN-CALORIE MALNUTRITION Status: Chronic (3) FTT (failure to thrive) in adult Status: Chronic (4) Acute on chronic anemia Code(s): D64.9 - ANEMIA, UNSPECIFIED Status: Acute (5) History of endocarditis Code(s): Z86.79 - PERSONAL HISTORY OF OTHER DISEASES OF THE CIRCULATORY SYSTEM Status: Chronic (6) MRSA bacteremia Code(s): R78.81 - BACTEREMIA; B95.62 - METHICILLIN RESIS STAPH INFCT CAUSING DISEASES CLASSD ELSWHR Status: Chronic (7) Ascites Code(s): R18.8 - OTHER ASCITES Status: Chronic Qualifiers: Ascites type: other type (8) Cardiomyopathy Code(s): I42.9 - CARDIOMYOPATHY, UNSPECIFIED Status: Chronic Qualifiers: Cardiomyopathy type: dilated Qualified Code(s): I42.0 - Dilated cardiomyopathy (9) Chronic pain Code(s): G89.29 - OTHER CHRONIC PAIN Status: Chronic Qualifiers: Chronic pain type: chronic pain syndrome Qualified Code(s): G89.4 - Chronic pain syndrome (10) ESRD (end stage renal disease) on dialysis Code(s): N18.6 - END STAGE RENAL DISEASE; Z99.2 - DEPENDENCE ON RENAL DIALYSIS Status: Chronic (11) GERD (gastroesophageal reflux disease) Code(s): K21.9 - GASTRO-ESOPHAGEAL REFLUX DISEASE WITHOUT ESOPHAGITIS Status: Chronic Qualifiers: Esophagitis presence: without esophagitis Qualified Code(s): K21.9 - G debby-esophageal reflux disease without esophagitis (12) H/O kidney transplant Status: Chronic (13) H/O mitral valve replacement Code(s): Z95.2 - PRESENCE OF PROSTHETIC HEART VALVE Status: Chronic (14) Hypertension Code(s): I10 - ESSENTIAL (PRIMARY) HYPERTENSION Status: Chronic Qualifiers: Hypertension type: essential hypertension Qualified Code(s): I10 - Ess ential (primary) hypertension (15) Thrombocytopenia Code(s): D69.6 - THROMBOCYTOPENIA, UNSPECIFIED Status: Chronic (16) Volume overload Code(s): E87.70 - FLUID OVERLOAD, UNSPECIFIED Status: Acute - Plan had attempted paracentesis on with no significant amount seen on usg c/o severe abd pain with reg bm, on fentanyl q4h clinically has signs of ascites, also has low albumin with abd wall edema as well, likely will need a repeat attempt at paracentesis in am. prognosis guarded with multiple med issues, non compliance, palliative care consultation for goals of care/hospice eval if he agrees. is on rifampin oral and vanc with HD continue clonidine tid, cymbalta, amitriptyline, gabapentin, labetalol and procardia xl to ambulate as tolerated with fall precautions in view of him taking fentanyl iv q4h
[2020-10-08] MEDS ORDERED: Vancomycin HCl 1.25 GM in Sodium Chloride 0.9% 250 ML 250 ML IVPB SCH ×2 (13:45→15:15)
--- NOTE | 2020-10-08 14:33 | PRG ---
DATE OF SERVICE: 10/08/2020 SUBJECTIVE: Patient was seen and examined at bedside and overnight events noted. Patient denies any shortness of breath or chest pain or palpitation. No history of nausea or vomiting or diarrhea or fever or chills or cramps. OBJECTIVE: GENERAL: This is a well-built male, in no apparent distress. VITAL SIGNS: Temperature 99.3. Heart rate 101. Respiratory rate 20. Blood pressure 153/89. HEENT: Atraumatic, normocephalic. Oral mucosa is moist. NECK: Supple. CARDIOVASCULAR: S1, S2 heard. Rate and rhythm regular. RESPIRATORY: Clear to auscultation. GASTROINTESTINAL: Abdomen is soft. MUSCULOSKELETAL: No tenderness. No edema. DERMATOLOGIC: No skin rash. NEUROLOGIC: Alert and awake and oriented x3. No focal neurologic deficits. Moving all the extremities. PSYCHIATRIC: Mood and affect normal. LABORATORY DATA: Not done today. I have ordered for the morning, but they could not get the labs and I ordered again for this afternoon. ASSESSMENT AND PLAN: 1. End-stage renal disease. We will continue dialysis on Friday, Friday, and Friday. 2. Hyperkalemia. Recheck labs . Started on Lokelma also. 3. Generalized weakness. The patient has history of renal transplant and immunosuppressants being stopped under the guidance of [facility]. I am concerned that he may be having some reaction to which is causing all these systemic symptoms and I advised him to follow up with the [facility]. We will also try steroids to see if it shows any clinical improvement. 4. Edema. 5. Hypertension. 6. Anemia of chronic disease. We will follow. Continue dialysis on Friday, Friday, and Friday. Monitor potassium level and limit potassium intake. Job ID: [id number]
[2020-10-08 14:37] LABS: Anion Gap 18 mmol/L (10-20); BUN (Urea Nitrogen) 53 mg/dL (8.9-20.6); Calc. Creatinine Clearance 19 mL/min (70-130); Calcium 8.6 mg/dL (7.8-10.44); Carbon Dioxide 30 mmol/L (22-29); Chloride 92 mmol/L (98-107); Estimated GFR-MDRD 11; Glucose 90 mg/dL (70-105); Potassium 5.9 mmol/L (3.5-5.1); Sodium 134 mmol/L (136-145)
[2020-10-08] MEDS ORDERED: Vancomycin HCl 500 MG in Sodium Chloride 0.9% 100 ML IVPB SCH (15:15)
[2020-10-08] MEDS ORDERED: Vancomycin HCl 750 MG in Sodium Chloride 0.9% 250 ML 250 ML IVPB SCH (15:15)
[2020-10-08] MEDS ORDERED: HOLD VANCOMYCIN FOR LEVEL >20 FS SCH (15:15)
[2020-10-08] MEDS ORDERED: Vancomycin 1 GM in Premix Bag 1 BAG IVPB SCH (15:15)
[2020-10-08] MEDS: LOKELMA 5 GM PACKET PO SCH ×2 (16:50→21:28)
[2020-10-08] MEDS: diphenhydrAMINE 25 MG CAP PO PRN (21:26)
[2020-10-08] MEDS: Amitriptyline HCl 100 MG TAB PO SCH (21:33)
[2020-10-09] MEDS: Fentanyl 100 MCG/2 ML VIAL SLOW IVP PRN ×5 (00:54→21:10)
[2020-10-09] MEDS: Rifampin 300 MG CAP PO SCH (05:11)
[2020-10-09] MEDS: Ondansetron ODT 4 MG TAB PO PRN ×3 (05:15→21:17)
[2020-10-09] MEDS ORDERED: EPOETIN ALFA-EPBX (ESRD) 10,000 UNIT/ML VIAL IVP SCH (09:00)
[2020-10-09] MEDS ORDERED: Iopamidol-370 76% 500 ML 1 ML ONE (09:10)
[2020-10-09 09:14] LABS: Anion Gap 16 mmol/L (10-20); BUN (Urea Nitrogen) 57 mg/dL (8.9-20.6); Calc. Creatinine Clearance 17 mL/min (70-130); Calcium 8.1 mg/dL (7.8-10.44); Carbon Dioxide 32 mmol/L (22-29); Chloride 92 mmol/L (98-107); Estimated GFR-MDRD 10; Glucose 103 mg/dL (70-105); Potassium 5.9 mmol/L (3.5-5.1); Sodium 134 mmol/L (136-145); Vancomycin, Random 16.2 ug/mL (See Comment)
[2020-10-09 11:16] LABS: Hemoglobin 6.6 g/dL (14.0-18.0); Mean Corpuscular HGB CONC 32.6 g/dL (32.0-36.0); Mean Corpuscular Hemoglobin 30.5 pg (27.0-31.0); Mean Corpuscular Volume 93.6 fL (78.0-98.0); Mean Platelet Volume 9.1 fL (7.4-10.4); Platelet Count 97 thou/uL (130-400); Red Blood Cell (RBC) Count 2.15 mill/uL (4.70-6.10); White Blood Cell (WBC) Count 4.3 thou/uL (4.8-10.8)
--- NOTE | 2020-10-09 11:37 | PRG ---
DATE OF SERVICE: 10/09/2020 SUBJECTIVE: A 25-year-old gentleman being seen for end-stage renal disease. The patient denied nausea, vomiting, chest pain. PHYSICAL EXAMINATION: General: The patient is awake and alert. Vital Signs: Afebrile, pulse 86, breathing at 16, blood pressure 135/89. HEENT: Head normocephalic and atraumatic. Eyes intact, no ulcers. Nose intact, no ulcers. Ears intact, no ulcers. Neck: Supple. No JVD. Chest: Symmetrical and clear. Cardiovascular: Shows S1 and S2, no rub, no murmur. Gastrointestinal: Abdomen is soft, bowel sounds positive. Extremities: Show no edema or ulcers. Skin: Shows no rash or petechiae. Musculoskeletal: Shows no joint swelling or stiffness. Genitourinary: Shows no Pimentel or CVA tenderness. Neurologic: Motor intact. Cranial nerves intact. LABORATORY DATA: Show hemoglobin is pending. ASSESSMENT: 1. . 2. Hyperkalemia, plan dialysis. 3. Anemia. Check hemoglobin. Overall prognosis is poor. Job ID: [id number]
[2020-10-09 11:47] LABS: Band 10 % (5-11); Eosinophils 13 % (0-10); Lymphocytes 17 % (21-51); MDiff Complete? YES; Monocytes 8 % (0-10); Neutrophil 49 % (42-75); Platelet Morphology Comment Appears Decreased; Polychromasia SLIGHT = 2-3 cells (100X) (0-2/hpf); Schistocytes SLIGHT = 2-5 cells (100X) (0-1/hpf)
--- NOTE | 2020-10-09 13:18 | ULT ---
US Paracentesis with Imaging History: Ascites Comparison: Paracentesis October 03, 2020 Findings: There is minimal free fluid in the pelvis. The amount of fluid is not amenable to percutane ous drainage. Impression: Small volume free fluid not amenable to percutaneous drainage.
--- NOTE | 2020-10-09 13:42 | PDOC.HOSPP ---
- Subjective Encounter Date: 10/09/20 Encounter Time: 08:00 Subjective: is getting HD c/o pain in rlq, no nausea, is passing normal stool, tolerating oral diet - Objective Vital Signs & Weight: Vital Signs (12 hours) Temp Pulse Resp BP BP Pulse Ox 10/09/20 08:00 100 10/09/20 07:50 99.7 F H 86 20 125/89 100 10/09/20 04:16 99.1 F 84 20 125/86 100 Weight Weight 192 lb 8 oz I&O: 10/08/20 10/09/20 10/10/20 06:59 06:59 06:59 Intake Total 240 0 Output Total 0 Balance 240 0 Result Diagrams: 10/09/20 10:49 10/09/20 08:24 Hospitalist ROS - Medication Medications: Active Medications Generic Name Dose Route Start Last Admin Trade Name Freq PRN Reason Stop Dose Admin Acetaminophen 500 mg 10/01/20 20:41 10/08/20 01:47 Acetaminophen 500 Mg Tab PO 500 mg Q6H PRN Administration Fever/Mild Pain Albuterol/Ipratropium 3 ml 10/05/20 16:01 10/08/20 01:51 Ipratropium/Albuterol Sulfate 3 Ml Neb NEB 3 ml Q4H PRN Administration SOB &/or Wheezing Amitriptyline HCl 100 mg 09/29/20 21:00 10/08/20 21:33 Amitriptyline Hcl 100 Mg Tab PO 100 mg QPM ALANNA Administration Clonidine 0.3 mg 09/29/20 09:00 10/08/20 21:28 Clonidine 0.3 Mg Tab PO 0.3 mg TID ALANNA Administration Diphenhydramine HCl 25 mg 10/02/20 09:49 10/08/20 21:26 Diphenhydramine 25 Mg Cap PO 25 mg Q6H PRN Administration Itching & Insomnia Duloxetine HCl 60 mg 09/29/20 09:00 10/08/20 08:58 Duloxetine 60 Mg Cap PO 60 mg DAILY ALANNA Administration Epoetin John-epbx 10,000 unit 10/09/20 09:00 10/09/20 11:28 Epoetin John-Epbx (Esrd) 10,000 Unit/Ml Vial IVP 10,000 unit WILLCALL ALANNA Administration Fentanyl 25 mcg 10/03/20 08:04 10/09/20 10:52 Fentanyl 100 Mcg/2 Ml Vial SLOW IVP 25 mcg Q4H PRN Administration Severe Pain (7-10) Fluticasone Propionate 0 gm 10/08/20 05:47 10/08/20 05:56 Fluticasone Propionate Nasal [place] 16 Gm Bottle NASAL 1 spray DAILYPRN PRN Administration ALLERGIES/CONGESTION Gabapentin 100 mg 09/29/20 09:00 10/08/20 21:25 Gabapentin 100 Mg Cap PO 100 mg BID ALANNA Administration Hydralazine HCl 100 mg 09/29/20 09:00 10/08/20 21:26 Hydralazine 25 Mg Tab PO 100 mg TID ALANNA Administration Vancomycin HCl 500 mg/ Sodium 100 mls @ 100 mls/hr 10/08/20 15:15 10/09/20 10:54 Chloride IVPB 100 mls WILLCALL ALANNA Administration Labetalol HCl 600 mg 09/29/20 09:00 10/08/20 21:27 Labetalol 100 Mg Tab PO 600 mg BID ALANNA Administration Nifedipine 90 mg 09/29/20 09:00 10/08/20 21:29 Nifedipine Xl 90 Mg Tab PO 90 mg BID ALANNA Administration Ondansetron HCl 4 mg 09/29/20 02:25 10/09/20 05:15 Ondansetron Odt 4 Mg Tab PO 4 mg Q6H PRN Administration Nausea/Vomiting Pantoprazole Sodium 40 mg 09/29/20 09:00 10/08/20 09:01 Pantoprazole 40 Mg Tab PO 40 mg DAILY ALANNA Administration Rifampin 300 mg 09/29/20 06:00 10/09/20 05:11 Rifampin 300 Mg Cap PO 10/15/20 23:59 300 mg 0600,2200 ALANNA Administration Saccharomyces Boulardii 250 mg 10/06/20 09:00 10/08/20 09:01 Saccharomyces Boulardii 250 Mg Cap PO 250 mg DAILY ALANNA Administration Sevelamer Carbonate 2,400 mg 09/29/20 08:00 10/08/20 18:40 Sevelamer Carbonate 800 Mg Tab PO Not Given TID-WM ALANNA Sodium Chloride 0 ml 10/06/20 09:00 10/08/20 21:34 Sodium Chloride 0.65% Nasal 44 Ml Bot EA NARE 1 spray TID ALANNA Administration Sodium Zirconium Cyclosilicate 5 gm 10/08/20 14:00 10/08/20 21:28 Lokelma 5 Gm Packet PO 5 gm BID ALANNA Administration - Exam General Appearance: awake alert Eye: PERRL, anicteric sclera ENT: no oropharyngeal lesions, moist mucosa Neck: supple, no JVD Heart: RRR, no murmur Respiratory: no wheezes, no rales Gastrointestinal: soft, normal bowel sounds, distended Extremities: no cyanosis, no edema Neurological: cranial nerve grossly intact, no focal deficits Hosp A/P (1) Abdominal pain Code(s): R10.9 - UNSPECIFIED ABDOMINAL PAIN Status: Acute Qualifiers: Abdominal location: right lower quadrant Qualified Code(s): R10.31 - Right lower quadrant pain (2) Moderate protein-calorie malnutrition Code(s): E44.0 - MODERATE PROTEIN-CALORIE MALNUTRITION Status: Chronic (3) FTT (failure to thrive) in adult Status: Chronic (4) Acute on chronic anemia Code(s): D64.9 - ANEMIA, UNSPECIFIED Status: Acute (5) History of endocarditis Code(s): Z86.79 - PERSONAL HISTORY OF OTHER DISEASES OF THE CIRCULATORY SYSTEM Status: Chronic (6) MRSA bacteremia Code(s): R78.81 - BACTEREMIA; B95.62 - METHICILLIN RESIS STAPH INFCT CAUSING DISEASES CLASSD ELSWHR Status: Chronic (7) Ascites Code(s): R18.8 - OTHER ASCITES Status: Chronic Qualifiers: Ascites type: other type (8) Cardiomyopathy Code(s): I42.9 - CARDIOMYOPATHY, UNSPECIFIED Status: Chronic Qualifiers: Cardiomyopathy type: dilated Qualified Code(s): I42.0 - Dilated cardiomyopathy (9) Chronic pain Code(s): G89.29 - OTHER CHRONIC PAIN Status: Chronic Qualifiers: Chronic pain type: chronic pain syndrome Qualified Code(s): G89.4 - Chronic pain syndrome (10) ESRD (end stage renal disease) on dialysis Code(s): N18.6 - END STAGE RENAL DISEASE; Z99.2 - DEPENDENCE ON RENAL DIALYSIS Status: Chronic (11) GERD (gastroesophageal reflux disease) Code(s): K21.9 - GASTRO-ESOPHAGEAL REFLUX DISEASE WITHOUT ESOPHAGITIS Status: Chronic Qualifiers: Esophagitis presence: without esophagitis Qualified Code(s): K21.9 - Gastro-esophageal reflux disease without esophagitis (12) H/O kidney transplant Status: Chronic (13) H/O mitral valve replacement Code(s): Z95.2 - PRESENCE OF PROSTHETIC HEART VALVE Status: Chronic (14) Hypertension Code(s): I10 - ESSENTIAL (PRIMARY) HYPERTENSION Status: Chronic Qualifiers: Hypertension type: essential hypertension Qualified Code(s): I10 - Essential (primary) hypertension (15) Thrombocytopenia Code(s): D69.6 - THROMBOCYTOPENIA, UNSPECIFIED Status: Chronic (16) Volume overload Code(s): E87.70 - FLUID OVERLOAD, UNSPECIFIED Status: Acute - Plan had attempted paracentesis on with no significant amount seen on usg, repeat usg today shows no sig fluid to drain will get CT abd and pelvis repeat with contrast to see if he has any organic cause for his severe pain needing fentanyl on the clock. He will need Hemodialysis in am in view of contrast today for CT. c/o severe abd pain with reg bm, on fentanyl q4h has low albumin with abd wall edema as well. prognosis guarded with multiple med issues, non compliance, palliative care consultation for goals of care/hospice eval if he agrees. is on rifampin oral and vanc with HD continue clonidine tid, cymbalta, amitriptyline, gabapentin, labetalol and procardia xl to ambulate as tolerated with fall precautions in view of him taking fentanyl iv q4h dc plan in am after HD if CT does not reveal any organic cause for his intractable pain.
[2020-10-09] MEDS: NIFEdipine XL 90 MG TAB PO SCH ×2 (14:40→21:38)
[2020-10-09] MEDS: hydrALAZINE 25 MG TAB PO SCH ×3 (14:41→21:17)
[2020-10-09] MEDS: DULoxetine 60 MG CAP PO SCH (14:41)
[2020-10-09] MEDS: Saccharomyces boulardii 250 MG CAP PO SCH (14:41)
[2020-10-09] MEDS: Sodium Chloride 0.65% Nasal 44 ML BOT EA NARE SCH ×3 (14:57→21:30)
[2020-10-09] MEDS: Labetalol 100 MG TAB PO SCH ×2 (14:58→21:29)
[2020-10-09] MEDS: Gabapentin 100 MG CAP PO SCH ×2 (14:58→21:14)
[2020-10-09] MEDS: LOKELMA 5 GM PACKET PO SCH ×2 (14:58→21:19)
[2020-10-09] MEDS: cloNIDine 0.3 MG TAB PO SCH ×3 (14:59→21:18)
[2020-10-09] MEDS: Sevelamer Carbonate 800 MG TAB PO SCH ×3 (15:00→19:31)
--- NOTE | 2020-10-09 18:06 | CT ---
CT ABDOMEN AND PELVIS WITH IV CONTRAST: Indications: Right lower quadrant pain. Oral contrast was administered. Comparison: CT abdomen/pelvis 10-02-2020. FINDINGS: Images through the lung bases show linear stranding and atelectasis with nonspecific ground glass opa [place] which appears stable from prior exam. Cardiomegaly. Images through the abdomen show moderate to large volume ascites, similar in appearance to the prior exam. Liver, spleen, pancreas, and stomach appear unremarkable and unchanged. Small bowel loops normal. Stool throughout the colon. Appendix appears normal. Partially calcified mass in the right lower quadrant has been previously described and is unchanged. The kidneys are atrophic with tiny calcifications which are stable. Post contrast exam is suboptimal due to lack of portal vein enhancement. There is dense opacification of the left femoral vein due to a lower extremity injection and there is partial opacification of th e inferior vena cava. No significant opacification of the portal veins, hepatic veins, or aorta. IMPRESSION: 1. Moderate volume ascites is stable from prior exam. 2. No evidence of acute process. Atrophic kidneys with tiny calcifications are stable. 3. The partially calcified mass in the right lower quadrant is unchanged in appearance. POS: AGW
[2020-10-09] MEDS: diphenhydrAMINE 25 MG CAP PO PRN (21:14)
[2020-10-09] MEDS: Amitriptyline HCl 100 MG TAB PO SCH (21:18)
[2020-10-09] MEDS: Acetaminophen 500 MG TAB PO PRN (23:56)
[2020-10-10] MEDS: Fentanyl 100 MCG/2 ML VIAL SLOW IVP PRN ×4 (03:35→22:51)
[2020-10-10] MEDS: diphenhydrAMINE 25 MG CAP PO PRN ×3 (03:35→22:55)
[2020-10-10 06:40] LABS: Anion Gap 16 mmol/L (10-20); BUN (Urea Nitrogen) 33 mg/dL (8.9-20.6); Calc. Creatinine Clearance 24 mL/min (70-130); Carbon Dioxide 30 mmol/L (22-29); Chloride 93 mmol/L (98-107); Estimated GFR-MDRD 14; Glucose 106 mg/dL (70-105); Sodium 134 mmol/L (136-145)
[2020-10-10] MEDS: Sevelamer Carbonate 800 MG TAB PO SCH ×5 (08:20→20:50)
[2020-10-10] MEDS: DULoxetine 60 MG CAP PO SCH (08:20)
[2020-10-10] MEDS: Gabapentin 100 MG CAP PO SCH ×2 (08:21→20:53)
[2020-10-10] MEDS: Saccharomyces boulardii 250 MG CAP PO SCH (08:21)
[2020-10-10] MEDS: hydrALAZINE 25 MG TAB PO SCH ×3 (08:21→22:56)
[2020-10-10] MEDS: cloNIDine 0.3 MG TAB PO SCH ×3 (08:22→22:57)
[2020-10-10] MEDS: NIFEdipine XL 90 MG TAB PO SCH ×2 (08:23→22:57)
[2020-10-10] MEDS: Sodium Chloride 0.65% Nasal 44 ML BOT EA NARE SCH ×3 (08:24→22:42)
[2020-10-10] MEDS: Labetalol 100 MG TAB PO SCH ×2 (09:47→22:58)
[2020-10-10] MEDS: LOKELMA 5 GM PACKET PO SCH ×2 (09:51→20:56)
--- NOTE | 2020-10-10 11:59 | PRG ---
DATE OF SERVICE: 10/10/2020 SUBJECTIVE: A 25-year-old gentleman being seen for end-stage renal disease. The patient denies any nausea, vomiting, or chest pain. PHYSICAL EXAMINATION: GENERAL: The patient is awake and alert. VITAL SIGNS: Afebrile, pulse 75, breathing at 16, and blood pressure 131/81. HEENT: Head normocephalic and atraumatic. Eyes intact, no ulcers. Nose intact, no ulcers. Ears intact, no ulcers. NECK: Supple. No JVD. CHEST: Symmetrical and clear. CARDIOVASCULAR: Shows S1 and S2, no rub, no murmur. GASTROINTESTINAL: Abdomen is soft, bowel sounds positive. EXTREMITIES: Show no edema or ulcers. SKIN: Shows no rash or petechiae. MUSCULOSKELETAL: Shows no joint swelling or stiffness. GENITOURINARY: Shows no Pimentel or CVA tenderness. NEUROLOGIC: Motor intact. Cranial nerves intact. LABORATORY DATA: Labs show hemoglobin is pending. ASSESSMENT AND PLAN: 1. Stage 6 chronic kidney disease. Plan dialysis. 2. Hypertension, stable. 3. Anemia. Recheck hemoglobin. 4. Medication based on GFR appropriate. Job ID: [id number]
--- NOTE | 2020-10-10 13:12 | PDOC.HOSPP ---
- Subjective Encounter Date: 10/10/20 Encounter Time: 11:45 Subjective: c/o abd pain, no new complaints is eating well, no diarrhea - Objective Vital Signs & Weight: Vital Signs (12 hours) Temp Pulse Resp BP BP Pulse Ox 10/10/20 11:29 99.9 F H 98 20 111/68 91 L 10/10/20 08:45 98.9 F 98 20 146/87 H 91 L 10/10/20 08:30 91 L 10/10/20 04:00 98.5 F 105 H 21 H 131/81 93 L Weight Weight 192 lb 8 oz I&O: 10/09/20 10/10/20 10/11/20 06:59 06:59 06:59 Intake Total 0 Balance 0 Result Diagrams: 10/10/20 11:54 10/10/20 05:56 Hospitalist ROS - Medication Medications: Active Medications Generic Name Dose Route Start Last Admin Trade Name Freq PRN Reason Stop Dose Admin Acetaminophen 500 mg 10/01/20 20:41 10/09/20 23:56 Acetaminophen 500 Mg Tab PO 500 mg Q6H PRN Administration Fever/Mild Pain Albuterol/Ipratropium 3 ml 10/05/20 16:01 10/08/20 01:51 Ipratropium/Albuterol Sulfate 3 Ml Neb NEB 3 ml Q4H PRN Administration SOB &/or Wheezing Amitriptyline HCl 100 mg 09/29/20 21:00 10/09/20 21:18 Amitriptyline Hcl 100 Mg Tab PO 100 mg QPM ALANNA Administration Clonidine 0.3 mg 09/29/20 09:00 10/10/20 08:22 Clonidine 0.3 Mg Tab PO 0.3 mg TID ALANNA Administration Diphenhydramine HCl 25 mg 10/02/20 09:49 10/10/20 09:46 Diphenhydramine 25 Mg Cap PO 25 mg Q6H PRN Administration Itching & Insomnia Duloxetine HCl 60 mg 09/29/20 09:00 10/10/20 08:20 Duloxetine 60 Mg Cap PO 60 mg DAILY ALANNA Administration Epoetin John-epbx 10,000 unit 10/09/20 09:00 10/09/20 11:28 Epoetin John-Epbx (Esrd) 10,000 Unit/Ml Vial IVP 10,000 unit WILLCALL ALANNA Administration Fentanyl 25 mcg 10/03/20 08:04 10/10/20 08:24 Fentanyl 100 Mcg/2 Ml Vial SLOW IVP 25 mcg Q4H PRN Administration Severe Pain (7-10) Fluticasone Propionate 0 gm 10/08/20 05:47 10/08/20 05:56 Fluticasone Propionate Nasal [place] 16 Gm Bottle NASAL 1 spray DAILYPRN PRN Administration ALLERGIES/CONGESTION Gabapentin 100 mg 09/29/20 09:00 10/10/20 08:21 Gabapentin 100 Mg Cap PO 100 mg BID ALANNA Administration Hydralazine HCl 100 mg 09/29/20 09:00 10/10/20 08:21 Hydralazine 25 Mg Tab PO 100 mg TID ALANNA Administration Vancomycin HCl 500 mg/ Sodium 100 mls @ 100 mls/hr 10/08/20 15:15 10/09/20 10:54 Chloride IVPB 100 mls WILLCALL ALANNA Administration Labetalol HCl 600 mg 09/29/20 09:00 10/10/20 09:47 Labetalol 100 Mg Tab PO 600 mg BID ALANNA Administration Nifedipine 90 mg 09/29/20 09:00 10/10/20 08:23 Nifedipine Xl 90 Mg Tab PO 90 mg BID ALANNA Administration Ondansetron HCl 4 mg 09/29/20 02:25 10/09/20 21:17 Ondansetron Odt 4 Mg Tab PO 4 mg Q6H PRN Administration Nausea/Vomiting Pantoprazole Sodium 40 mg 09/29/20 09:00 10/10/20 08:21 Pantoprazole 40 Mg Tab PO 40 mg DAILY ALANNA Administration Saccharomyces Boulardii 250 mg 10/06/20 09:00 10/10/20 08:21 Saccharomyces Boulardii 250 Mg Cap PO 250 mg DAILY ALANNA Administration Sevelamer Carbonate 2,400 mg 09/29/20 08:00 10/10/20 13:06 Sevelamer Carbonate 800 Mg Tab PO Not Given TID-WM ALANNA Sodium Chloride 0 ml 10/06/20 09:00 10/10/20 08:24 Sodium Chloride 0.65% Nasal 44 Ml Bot EA NARE 1 spray TID ALANNA Administration Sodium Zirconium Cyclosilicate 5 gm 10/08/20 14:00 10/10/20 09:51 Lokelma 5 Gm Packet PO Not Given BID ALANNA - Exam General Appearance: awake alert Eye: PERRL, anicteric sclera ENT: no oropharyngeal lesions, moist mucosa Neck: supple, no JVD Heart: RRR, no murmur Respiratory: no wheezes, no rales Gastrointestinal: soft, normal bowel sounds, no guarding, no rigidity, distended Extremities: no cyanosis, no edema Neurological: cranial nerve grossly intact, no focal deficits Psychiatric: A&O x 3 Hosp A/P (1) Abdominal pain Code(s): R10.9 - UNSPECIFIED ABDOMINAL PAIN Status: Acute Qualifiers: Abdominal location: generalized Qualified Code(s): R10.84 - Generalized abdominal pain (2) Moderate protein-calorie malnutrition Code(s): E44.0 - MODERATE PROTEIN-CALORIE MALNUTRITION Status: Chronic (3) FTT (failure to thrive) in adult Status: Chronic (4) Acute on chronic anemia Code(s): D64.9 - ANEMIA, UNSPECIFIED Status: Acute (5) History of endocarditis Code(s): Z86.79 - PERSONAL HISTORY OF OTHER DISEASES OF THE CIRCULATORY SYSTEM Status: Chronic (6) MRSA bacteremia Code(s): R78.81 - BACTEREMIA; B95.62 - METHICILLIN RESIS STAPH INFCT CAUSING DISEASES CLASSD ELSWHR Status: Chronic (7) Ascites Code(s): R18.8 - OTHER ASCITES Status: Chronic Qualifiers: Ascites type: other type (8) Cardiomyopathy Code(s): I42.9 - CARDIOMYOPATHY, UNSPECIFIED Status: Chronic Qualifiers: Cardiomyopathy type: dilated Qualified Code(s): I42.0 - Dilated cardiomyopathy (9) Chronic pain Code(s): G89.29 - OTHER CHRONIC PAIN Status: Chronic Qualifiers: Chronic pain type: chronic pain syndrome Qualified Code(s): G89.4 - Chronic pain syndrome (10) ESRD (end stage renal disease) on dialysis Code(s): N18.6 - END STAGE RENAL DISEASE; Z99.2 - DEPENDENCE ON RENAL DIALYSIS Status: Chronic (11) GERD (gastroesophageal reflux disease) Code(s): K21.9 - GASTRO-ESOPHAGEAL REFLUX DISEASE WITHOUT ESOPHAGITIS Status: Chronic Qualifiers: Esophagitis presence: without esophagitis Qualified Code(s): K21.9 - Gastro-esophageal reflux disease without esophagitis (12) H/O kidney transplant Status: Chronic (13) H/O mitral valve replacement Code(s): Z95.2 - PRESENCE OF PROSTHETIC HEART VALVE Status: Chronic (14) Hypertension Code(s): I10 - ESSENTIAL (PRIMARY) HYPERTENSION Status: Chronic Qualifiers: Hypertension type: essential hypertension Qualified Code(s): I10 - Essential (primary) hypertension (15) Thrombocytopenia Code(s): D69.6 - THROMBOCYTOPENIA, UNSPECIFIED Status: Chronic (16) Volume overload Code(s): E87.70 - FLUID OVERLOAD, UNSPECIFIED Status: Acute - Plan echo to see if prosthetic valves are functioning well in view of ascites had attempted paracentesis on with no significant amount seen on usg, repeat usg today shows no sig fluid to drain repeat CT abd and pelvis repeat with contrast results noted, this was d/w this morning, no ac changes to explain pt's pain. He will need Hemodialysis today in view of contrast for CT yesterday. c/o severe abd pain with reg bm, on fentanyl q4h has low albumin with abd wall edema as well. prognosis guarded with multiple med issues, non compliance, palliative care consultation for goals of care/hospice eval if he agrees. is on rifampin oral and vanc with HD continue clonidine tid, cymbalta, amitriptyline, gabapentin, labetalol and procardia xl to ambulate as tolerated with fall precautions in view of him taking fentanyl iv q4h dc plan in am if echo is within normal limits d/w his grand mother over phone, she will make an appointment to see his transplant surgeon in [place] at the earliest to check if his Tx kidney is infected/needs removal in view of recurrent bacteremia. She will also get an outpt appointment to see his psychiatrist.
[2020-10-10] MEDS: Ondansetron ODT 4 MG TAB PO PRN ×2 (14:25→22:55)
[2020-10-10] MEDS: Amitriptyline HCl 100 MG TAB PO SCH (20:52)
[2020-10-11] MEDS: Fentanyl 100 MCG/2 ML VIAL SLOW IVP PRN ×2 (02:47→06:36)
[2020-10-11] MEDS ORDERED: EPOETIN ALFA-EPBX (ESRD) 10,000 UNIT/ML VIAL IVP SCH (08:08)
[2020-10-11] MEDS: Acetaminophen 500 MG TAB PO PRN (09:05)
--- NOTE | 2020-10-11 09:17 | PRG ---
DATE OF SERVICE: 10/11/2020 SUBJECTIVE: A 25-year-old gentleman, being seen for end-stage renal disease. The patient denies any nausea, vomiting, or chest pain. PHYSICAL EXAMINATION: GENERAL: The patient is awake and alert. VITAL SIGNS: Afebrile, pulse 75, breathing at 16, blood pressure 138/93. HEENT: Head normocephalic and atraumatic. Eyes intact, no ulcers. Nose intact, no ulcers. Ears intact, no ulcers. NECK: Supple. No JVD. CHEST: Symmetrical and clear. CARDIOVASCULAR: Shows S1 and S2, no rub, no murmur. GASTROINTESTINAL: Abdomen is soft, bowel sounds positive. EXTREMITIES: Show no edema or ulcers. SKIN: Shows no rash or petechiae. MUSCULOSKELETAL: Shows no joint swelling or stiffness. GENITOURINARY: Shows no Pimentel or CVA tenderness. NEUROLOGIC: Motor intact. Cranial nerves intact. LABORATORY DATA: Reviewed. ASSESSMENT AND PLAN: 1. Stage 6 chronic kidney disease. Continue hemodialysis. 2. Hypertension, stable. 3. Anemia. Increase Epogen to 20,000 units every treatment. I would recommend a hematology consultation for further evaluation of this recurrent anemia. Overall prognosis is poor. Job ID: [id number]
[2020-10-11 10:02] LABS: Hemoglobin 7.2 g/dL (14.0-18.0); Mean Corpuscular HGB CONC 33.5 g/dL (32.0-36.0); Mean Corpuscular Hemoglobin 31.2 pg (27.0-31.0); Mean Corpuscular Volume 93.2 fL (78.0-98.0); Mean Platelet Volume 8.9 fL (7.4-10.4); Platelet Count 97 thou/uL (130-400); RBC Distribution Width 16.9 % (11.5-14.5); Red Blood Cell (RBC) Count 2.31 mill/uL (4.70-6.10); White Blood Cell (WBC) Count 5.4 thou/uL (4.8-10.8)
[2020-10-11] MEDS: Gabapentin 100 MG CAP PO SCH (10:02)
[2020-10-11] MEDS: Sevelamer Carbonate 800 MG TAB PO SCH ×2 (10:02→12:10)
[2020-10-11] MEDS: cloNIDine 0.3 MG TAB PO SCH ×2 (10:02→14:15)
[2020-10-11] MEDS: DULoxetine 60 MG CAP PO SCH (10:02)
[2020-10-11] MEDS: hydrALAZINE 25 MG TAB PO SCH ×2 (10:02→14:15)
[2020-10-11] MEDS: Sodium Chloride 0.65% Nasal 44 ML BOT EA NARE SCH ×2 (10:03→14:17)
[2020-10-11] MEDS: NIFEdipine XL 90 MG TAB PO SCH (10:03)
[2020-10-11] MEDS: Saccharomyces boulardii 250 MG CAP PO SCH (10:03)
[2020-10-11] MEDS: LOKELMA 5 GM PACKET PO SCH (10:03)
[2020-10-11] MEDS: Labetalol 100 MG TAB PO SCH (10:03)
[2020-10-11 10:13] LABS: Vancomycin, Random 11.9 ug/mL (See Comment)
[2020-10-11 10:14] LABS: Anion Gap 17 mmol/L (10-20); BUN (Urea Nitrogen) 46 mg/dL (8.9-20.6); Calc. Creatinine Clearance 18 mL/min (70-130); Carbon Dioxide 28 mmol/L (22-29); Chloride 93 mmol/L (98-107); Estimated GFR-MDRD 11; Glucose 105 mg/dL (70-105); Potassium 5.7 mmol/L (3.5-5.1); Sodium 132 mmol/L (136-145)
[2020-10-11 11:16] LABS: Band 5 % (5-11); Eosinophils 17 % (0-10); Hypochromia SLIGHT = 6-15 cells (100X) (0-5/hpf); Lymphocytes 16 % (21-51); MDiff Complete? YES; Monocytes 9 % (0-10); Neutrophil 52 % (42-75); Ovalocytes SLIGHT = 2-5 cells (100X) (0-1/hpf); Platelet Morphology Comment Appears Decreased; Polychromasia SLIGHT = 2-3 cells (100X) (0-2/hpf)
[2020-10-11] MEDS: EPOETIN ALFA-EPBX (ESRD) 10,000 UNIT/ML VIAL SC SCH ×2 (11:39→12:01)
[2020-10-11 14:12] VITALS: BP 153/88; TEMP 98.1
--- NOTE | 2020-10-11 15:36 | DIS ---
DATE OF ADMISSION: 10/02/2020 DATE OF DISCHARGE: 10/11/2020 DISCHARGE DISPOSITION: Home. PRIMARY DISCHARGE DIAGNOSES: Abdominal pain, idiopathic, likely functional; history of methicillin-resistant Staphylococcus aureus bacteremia on vancomycin and rifampin with prior history of endocarditis; moderate protein calorie malnutrition; failure to thrive; end-stage renal disease on hemodialysis with noncompliance with duration of dialysis; hyperkalemia secondary to noncompliance with hemodialysis duration; mitral valve replacement due to endocarditis; history of kidney transplant, which has been calcified in the right lower quadrant; gastroesophageal reflux disease; chronic pain syndrome; dilated cardiomyopathy; ascites due to volume overload from end-stage renal disease and hypoalbuminemia; hypertension; chronic thrombocytopenia; chronic volume overload due to the patient being noncompliant with hemodialysis. PROCEDURES DONE DURING HOSPITALIZATION: Abdominal ultrasound done on 09/29/2020 showed small amount of ascites, which precluded therapeutic paracentesis. Abdominal and pelvic CAT scan done on 10/02/2020 showed [id number] amount of free fluid in the abdomen less than when compared to CAT scan on 09/20/2020. Diffuse anasarca. Large calcified mass in the right lower quadrant, which is unchanged in appearance when compared to prior CAT scan. He has had diagnostic paracentesis with removal of 6 mL of hemorrhagic ascites fluid done on 10/03/2020. Repeat paracentesis attempt on 10/09/2020 was not successful as he had very small amount of ascites. CT of the abdomen and pelvis with contrast done on 10/09/2020 showed moderate volume ascites. No evidence of acute process. Atrophic kidneys with tiny calcifications are stable. Partially calcified mass in the right lower quadrant is unchanged in appearance. Echo with 2D Doppler done on 10/10/2020 showed ejection fraction of 55% to 60%, moderately dilated left atrium, severe concentric LVH. Bioprosthetic valve was present. No vegetations were seen on the cardiac valves. Bioprosthetic mitral valve was present with no abnormality noted on the echo. Paracentesis fluid culture done on 10/03/2020 showed no growth in 5 days. Gram stain was negative. Hemoglobin and hematocrit 7.2 and 21, platelet count 97, MCV 93, white count of 5.4. BUN 46, creatinine 7.7 on the day of discharge, potassium is 5.7. His potassium has ranged from 6.2 to 5.0 all through his stay despite having scheduled dialysis, but the patient was cut short in his duration of dialysis. DISCHARGE MEDICATIONS: 1. Gabapentin 100 mg twice daily. 2. Nexium 40 mg daily. 3. Labetalol 600 mg twice daily. 4. Sevelamer 2400 mg p.o. three times daily. 5. Zofran p.r.n. for pain. 6. Tylenol 3 p.r.n. for pain q.8 hourly. 7. Amitriptyline 100 mg p.o. q.p.m. 8. Clonidine 0.3 mg p.o. three times daily. 9. Cymbalta 60 mg p.o. daily. 10. Florastor 250 mg p.o. daily. 11. Hydralazine 100 mg p.o. three times daily. 12. Procardia XL 90 mg twice daily. 13. Rifampin 300 mg p.o. twice daily until 10/15/2020. He needs to continue vancomycin with hemodialysis schedule until 10/15/2020 for a MRSA bacteremia. BRIEF COURSE DURING HOSPITALIZATION: The patient initially got admitted on the 29 of September with complaints of abdominal pain. He has had regular bowel movement. He has known history of ascites due to inadequate duration of hemodialysis due to the patient noncompliance and hypoalbuminemia. He has had nearly three attempts of paracentesis during this hospitalization, which were not successful as he had low volume to remove any. The patient required fentanyl q.4 hourly all through his stay for intractable abdominal pain. He has had two CAT scans, the second one was with contrast and has not shown any acute abnormality to explain the patient's abdominal pain. He has had consultation with Dr. Arciniega as well, who has reviewed CAT scans with no significant abnormality to explain his abdominal pain. The patient continues to have hyperkalemia and he continues to shorten his hemodialysis duration. He is counseled multiple times during his stay here despite which he does so. He has had prior history of MRSA bacteremia due to noncompliance with antibiotics and dialysis, and needs to continue his rifampin and vancomycin until . He has had an echo done in this hospitalization, which has shown the valvular structures to be within normal limits. I have given complete updates to the patient's grandmother, Ms. Lamas. They will try to have a followup appointment with his renal transplant surgeon in [place] for the calcified mass in the right lower quadrant to find out if it is infected in view of the patient's recurrent MRSA bacteremia. He is hemodynamically stable, ambulating in the room. He has had multiple dialysis sessions done here with as much removal of fluid and correction of his electrolytes as possible. He will shortly be discharged home after hemodialysis today. I have given complete updates to Ms. Lamas this morning. Please note, I have seen and examined the patient on the day of discharge. His overall prognosis is guarded in view of above-mentioned factors. Job ID: [id number]
--- NOTE | 2020-10-13 05:41 | PQF ---
CLINICAL DOCUMENTATION CLARIFICATION FORM: Dear : Pankaj Glover Date / Time: 10/13/2020 0539 Please exercise your independent, professional judgment in responding to the clarification form. Clinical indicators are provided on the bottom of this form for your review In your clinical opinion based on clinical findings below, can you please identify the etiology of Ascites if due to: Please check appropriate box(es): [ ] Cirrhosis [ x ] ESRD [ ] Dilated Cardiomyopathy [ ] Other diagnosis , please specify [ ] Unable to determine Physician Signature: Date/Time: For continuity of documentation, please document condition throughout progress notes and discharge summary. Thank You. To be completed by CDI/Coding staff for physician review: Present Clinical Indicators - Signs / Symptoms / Labs Results and Location in Medical Record [X] BUN 37, Creatinine 6.57, GFR 13 Laboratory 09/29 [X] BP 166/95, Pulse 97, Resp 20, Temp 98.7 Vital signs 09/29 [X] Paracentesis : Hemorrhagic ascites Procedure Dr Kate 10/03 [X] Presenting with abdominal pain H&P p1 09/29 Dr Lord [X] Pt had reaccumaltion of his ascites H&P p2 09/29 Dr Lord [X] Abdominal pain probably due to symptomatic ascites HPN p4 10/05 Dr Allred [X] Ascites concerned that he may be having cirrhosis of liver HPN p4 10/05 Dr Allred [X] Ascites is probably due to ESRD with probabylt cardiomyoathy HPN p4 10/06 Dr Allred [X] Ascites due to volume overload from ESRD and hypoalbuminemia DS 10/11 [X] Paracentesis fluid culture done on 10/03/20 showed no growth in 5 days DS 10/11 Present Risk Factors Results and Location in Medical Record [X] ESRD on HD H&P p1 09/29 Dr Lord [X] Hx of rejection of Renal transplant H&P p1 09/29 Dr Lord [X] Hx of bioprosthetic valve H&P p1 09/29 Dr Lord [X] Cardiomyopathy H&P p1 09/29 Dr Lord [X] Moderate PCM DS 10/11 Present Treatments Results and Location in Medical Record [X] IV Vancomycin 1.25 gm FEB 01 [X] Protonix 40 mg oral MAR 09/29 [X] Catapress 0.3 mg oral MAR 09/29 [X] Oxygen 2 L Respiratory panel 09/29 [X] Paracentesis Procedure Dr Kate 10/03 [X] HD Nephro panel 09/29 [X] Nephrology Consult Consult 09/29 CDS/Plant Reliability Engineer Signature: Peyton Bryan Phone #: [phone] Date/Time: 10/13/2020 0539 This is a permanent part of the Medical Record [facility]
--- NOTE | 2020-10-13 07:04 | EKG ---
Test Reason : Blood Pressure : / mmHG Vent. Rate : 089 BPM Atrial Rate : 089 BPM P-R Int : 186 ms QRS Dur : 096 ms QT Int : 370 ms P-R-T Axes : 036 054 038 degrees QTc Int : 450 ms Normal sinus rhythm Normal ECG When compared with ECG of 01-OCT-2020 23:27, Criteria for Septal infarct are no longer Present Confirmed by MICHELLE CHEATHAM MD ([id number]) on 10/13/2020 7:04:24 AM Referred By: CHEIKH Confirmed By:MICHELLE CHEATHAM MD
== END 2020-10-11 14:26 | disposition home or self-care (01) | DRG 683 ==
LOC: T4-A 00:25 → INTOOBSV 00:25 → OBSVTOIN 10-02 18:09
PROVIDERS: ADMIT Internal Medicine; ATTEND Internal Medicine
PROC: 5A1D70Z Performance of Urinary Filtration, Intermittent, Less than 6 Hours Per Day (ICD-10-PCS; 2020-09-29)
PROC: 30233N1 Transfusion of Nonautologous Red Blood Cells into Peripheral Vein, Percutaneous Approach (ICD-10-PCS; 2020-09-29)
PROC: 0W9G3ZX Drainage of Peritoneal Cavity, Percutaneous Approach, Diagnostic (ICD-10-PCS; principal; 2020-10-03)
PROC: 093K7ZZ Control Bleeding in Nasal Mucosa and Soft Tissue, Via Natural or Artificial Opening (ICD-10-PCS; 2020-10-05)
PROC: 2Y41X5Z Packing of Nasal Region using Packing Material (ICD-10-PCS; 2020-10-05)
DX: N18.6 End stage renal disease (principal); R18.8 Other ascites; E44.0 Moderate protein-calorie malnutrition; I42.0 Dilated cardiomyopathy; M31.0 Hypersensitivity angiitis; T86.11 Kidney transplant rejection; Z20.828 Contact with and (suspected) exposure to other viral communicable diseases; R62.7 Adult failure to thrive; E87.5 Hyperkalemia; G89.4 Chronic pain syndrome; E87.70 Fluid overload, unspecified; E88.09 Other disorders of plasma-protein metabolism, not elsewhere classified; D69.6 Thrombocytopenia, unspecified; D63.1 Anemia in chronic kidney disease; F12.10 Cannabis abuse, uncomplicated; F41.9 Anxiety disorder, unspecified; K21.9 Gastro-esophageal reflux disease without esophagitis; I10 Essential (primary) hypertension; Y83.0 Surgical operation with transplant of whole organ as the cause of abnormal reaction of the patient, or of later complication, without mention of misadventure at the time of the procedure; R04.0 Epistaxis; Z86.14 Personal history of Methicillin resistant Staphylococcus aureus infection; Z91.11 Patient's noncompliance with dietary regimen; Z68.24 Body mass index [BMI] 24.0-24.9, adult; Z99.2 Dependence on renal dialysis; Z91.15 Patient's noncompliance with renal dialysis; Z95.2 Presence of prosthetic heart valve; Z88.8 Allergy status to other drugs, medicaments and biological substances; Z91.14 Patient's other noncompliance with medication regimen; Z79.899 Other long term (current) drug therapy
CPT/HCPCS: 36415; 36416; 36430; 36901; 49083; 74177; 76705; 80048; 80053; 80202; 82042; 82945; 83605; 83690; 84155; 84484; 85007; 85014; 85018; 85025; 85027; 85060; 85610; 85730; 86850; 86900; 86901; 87070; 87205; 89051; 90935; 93005; 93010; 93306; 94640; 96374; 96375; 96376; G0257; G0378; J1200; J1644; J2270; J2920; J3010; J3370; J3490; J7050; J7620; P9016; Q0162; Q0163; Q5105; Q9967

== ENCOUNTER 2020-10-11 21:31 | Emergency (ER) | payer OTHER | END 2020-10-11 22:30 | disposition home or self-care (01) | LOC: ERS 21:31 | DX: G89.29 Other chronic pain (principal); R10.9 Unspecified abdominal pain; I12.0 Hypertensive chronic kidney disease with stage 5 chronic kidney disease or end stage renal disease; N18.6 End stage renal disease; F41.9 Anxiety disorder, unspecified; Z99.2 Dependence on renal dialysis | CPT/HCPCS: 99281 ==

== ENCOUNTER 2020-10-27 15:18 | Inpatient (IN) | payer OTHER ==
[2020-10-27 16:18] LABS: #Eosinphils 0.2 thou/uL (0.0-0.7); #Lymphocytes 0.9 thou/uL (1.20-3.40); #Monocytes 0.4 thou/uL (0.11-0.59); #Neutrophils 2.7 thou/uL (1.40-6.50); %Basophils 0.5 % (0.0-1.0); %Eosinophils 5.6 % (0.0-10.0); %Lymphocytes 20.9 % (21.0-51.0); Hemoglobin 6.7 g/dL (14.0-18.0); Mean Corpuscular Volume 93.7 fL (78.0-98.0); Mean Platelet Volume 9.7 fL (7.4-10.4); Platelet Count 118 thou/uL (130-400); RBC Distribution Width 16.4 % (11.5-14.5); Red Blood Cell (RBC) Count 2.25 mill/uL (4.70-6.10); White Blood Cell (WBC) Count 4.3 thou/uL (4.8-10.8)
[2020-10-27 16:27] LABS: INR-International Normal Ratio 1.4; PTT 74.7 sec (22.9-36.1); Prothrombin Time 17.8 sec (12.0-14.7)
[2020-10-27 16:31] LABS: ALT (SGPT) 9 U/L (8-55); AST (SGOT) 29 U/L (5-34); Albumin 2.6 g/dL (3.5-5.0); Alkaline Phosphatase 318 U/L (40-110); Anion Gap 21 mmol/L (10-20); BUN (Urea Nitrogen) 39 mg/dL (8.9-20.6); CK (CPK) 114 U/L (30-200); Calc. Creatinine Clearance 0 mL/min (70-130); Calcium 7.2 mg/dL (7.8-10.44); Carbon Dioxide 24 mmol/L (22-29); Chloride 95 mmol/L (98-107); Globulin 4.3 g/dL (2.4-3.5); Glucose 99 mg/dL (70-105); Potassium 5.2 mmol/L (3.5-5.1); Protein, Total 6.9 g/dL (6.0-8.3); Sodium 135 mmol/L (136-145)
[2020-10-27] MEDS ORDERED: Norepinephrine 8 MG/0.9% NS 250 ML ONE (16:34)
--- NOTE | 2020-10-27 16:47 | RAD ---
PORTABLE CHEST ONE VIEW: 10/27/20 at 4:09 p.m. HISTORY: Syncope, renal failure. Patient has not been to dialysis today. COMPARISON: 10/06/20. FINDINGS/IMPRESSION: Changes of median sternotomy. Prosthetic aortic valve and cardiomegaly are again seen. There is pulmo nary vascular congestion with mild patchy opacities in the lung gordillo bilaterally. No pneumothoraces or large effusions are seen. POS: AH
[2020-10-27] MEDS ORDERED: Acetaminophen 325 MG TAB PO PRN (17:00)
[2020-10-27] MEDS ORDERED: Norepinephrine 8 MG/0.9% NS 250 ML IVPB PRN (17:00)
[2020-10-27] MEDS ORDERED: Sodium Chloride 0.9% 1,000 ML IV SCH (17:00)
[2020-10-27] MEDS ORDERED: Calcium Carbonate 500 MG ChewTAB PO PRN (17:00)
[2020-10-27] MEDS ORDERED: Bisacodyl 10 MG SUPP PR PRN (17:00)
[2020-10-27] MEDS ORDERED: Guaifenesin DM 100-10/5 ML UDCUP PO PRN (17:00)
[2020-10-27] MEDS ORDERED: Albumin 25% 25 GM/100 ML BOT IVPB SCH (18:00)
[2020-10-27] MEDS ORDERED: Tranexamic Acid 1,000 MG in Sodium Chloride 0.9% 250 ML 250 ML IVPB SCH (19:30)
--- NOTE | 2020-10-27 20:40 | CT ---
Exam: Chest CT without contrast Abdomen CT without contrast Pelvic CT without contrast HISTORY: Septic shock Unknown source FINDINGS: Chest CT: Limited evaluation due to the lack of IV contrast. No mediastinal mass, lymphadenopathy or hematoma. Heart is enlarged. No significant pericardial fluid. There is a prosthetic mitral valve. Trachea and central bronchi are patent Dependent atelectatic changes with possible bilateral lower lobe aspiration and/or pneumonia. Scatter ed groundglass opacities are noted symmetric. Small right sided pleural effusion No pneumothorax Abdomen CT: Limited evaluation by the absence of IV contrast. Grossly no solid organ abnormality. Atrophic cocopah kidneys No mesenteric mass, lymphadenopathy, free air. Redemonstration of free fluid in the abdomen. Hyperdensity within the lumen of the gallbladder may represent vicarious excretion of contrast versus sludge. Gallbladder is contracted. Limited evaluation of the alimentary canal by the lack of oral contrast. No evidence of obvious bowel obstruction. However, there are slightly prominent small bowel loops in the left hemiabdomen. Correlate for developing obstruction versus ileus. Hyperdensity in a normal caliber appendix. Scatter ed fecal material in a nondistended, nondilated colon. Calcification in the right lower quadrant, compatible with a failed right renal transplant. Pelvic CT: Redemonstration of free fluid in the pelvis. Urinary bladder cannot be assessed. No pelvic mass, lymphadenopathy or free air. Osseous structures: Diffuse sclerosis likely renal osteodystrophy. IMPRESSION: 1. Opacity in the lung bases may represent atelectasis, pneumonia or aspiration 2. Persistent ascites in the abdomen or pelvis. 3. Slightly prominent small bowel loops in the left hemiabdomen are nonspecific. Correlate for develo ping ileus or obstruction.
[2020-10-27 21:24] LABS: SARS-CoV-2 NAA Rapid Test Not Detected (NotDetected)
--- NOTE | 2020-10-27 21:31 | HP ---
REASON FOR ADMISSION: Hypotension with possible sepsis with prior history of MRSA bacteremia, anemia, metabolic encephalopathy, syncope. HISTORY OF PRESENT ILLNESS: Please note, majority of this history is obtained by talking to Ms. Lamas, patient's mother, as the patient is not oriented. He apparently was trying to get out of his truck. He felt dizzy and fell to the ground. He had passed out for nearly 10 or 15 minutes. The family did not try to move him and called EMS. As EMS was arriving, the patient was coming around. On arrival here, patient's systolic blood pressure was in the 60s. He was placed on Levophed and 1 L of IV fluid was given and the blood pressure has come up to 90 systolic. His Levophed has been slowly weaned and discontinued at present with blood pressure holding up to 100 systolic. Mr. Martínez does not complain of any specific issues. No chest pain, palpitations, or PND. Has chronic abdominal pain which is generalized. He states he is due for dialysis today. He was recently hospitalized at [facility] and got discharged on Friday after dialysis. In fact, the patient had hypotension at [facility] and was closely monitored there. He dropped his blood pressure to 70 systolic there as well and was given fluids. By the time he was discharged, the patient's blood pressure was back to his normal self and was placed back on his hypertensive medications. PAST MEDICAL AND SURGICAL HISTORY: End-stage renal disease, on hemodialysis; history of mitral valve replacement x2 for infective endocarditis; recurrent MRSA bacteremia, on vancomycin with hemodialysis and rifampin orally; chronic anemia due to renal disease; prior history of renal transplant; history of cardiomyopathy with EF of around 60%; history of gastric ulcer in endoscopy in June of 2020; chronic abdominal pain with intermittent diarrhea; ascites likely from volume overload. The patient is noncompliant with full 4-hour sessions of dialysis and cut shorts to 2 hours or so. History of Goodpasture's disease with renal failure, eczema with chronic itching, dialysis fistula, has had a dialysis access procedures in both upper extremities. PERSONAL HISTORY: Does not abuse alcohol or drugs. No history of smoking. Lives with his mother. FAMILY HISTORY: There is history of hypertension. CURRENT MEDICATIONS: The patient is on; 1. Gabapentin 100 mg twice daily. 2. Nexium 40 mg daily. 3. Labetalol 600 mg twice daily. 4. Sevelamer 2400 mg p.o. 3 times daily. 5. Amitriptyline 100 mg p.o. q.p.m. 6. Clonidine 0.3 mg p.o. 3 times daily. 7. Cymbalta 60 mg p.o. daily. 8. Florastor 250 mg p.o. daily. 9. Hydralazine 100 mg p.o. 3 times daily. 10. Procardia XL 90 mg twice daily. 11. Rifampin 300 mg p.o. twice daily, to be continued in view of ongoing sepsis. ALLERGIES: TO LORACARBEF. CODE STATUS: Full, this was discussed with the patient and his mom, Ms. Lamas. REVIEW OF SYSTEMS: CONSTITUTIONAL: Negative for weight loss or gain, ability to conduct usual activities. SKIN: Negative for rash, itching. EYES: Negative for double vision, pain. ENT/MOUTH: Negative for nose bleeding, neck stiffness, pain, tenderness. CARDIOVASCULAR: Negative for palpitations, dyspnea on exertion, orthopnea. RESPIRATORY: Negative for shortness of breath, wheezing, cough, hemoptysis, fever or night sweats. GASTROINTESTINAL: Negative for poor appetite, abdominal pain, heartburn, nausea, vomiting, constipation, or diarrhea. GENITOURINARY: Negative for urgency, frequency, dysuria, nocturia. MUSCULOSKELETAL: Negative for pain, swelling. NEUROLOGIC/PSYCHIATRIC: Negative for anxiety, depression. ALLERGY/IMMUNOLOGIC: Negative for skin rash, bleeding tendency. PHYSICAL EXAMINATION: GENERAL: The patient is a 25-year-old male who is currently not in any acute distress. VITAL SIGNS: Blood pressure has come up to 90/60 at present, was 60/40 on arrival. Pulse 72 per minute, respiratory rate 20 per minute, temperature 98.5 degrees Fahrenheit, and saturating 92% on 4 L nasal cannula. NECK: Supple. There is elevated JVD. HEENT: Eyes; extraocular muscles intact. Pupils reacting to light. Oral cavity, mucous membranes are dry. No exudates or congestion. CARDIOVASCULAR SYSTEM: S1, S2 heard. Murmur plus. RESPIRATORY SYSTEM: Air entry 1+ bilateral. Scattered rales plus in the infra-axillary area. ABDOMEN: Distended. Bowel sounds heard. No rigidity or guarding. There appears to be ascites on clinical exam. EXTREMITIES: Mild peripheral edema. No calf tenderness. VASCULAR SYSTEM: Peripheral pulses 1+ bilateral in the upper extremities. Lower extremities, it is barely palpable. No ischemic ulcers or gangrene. CENTRAL NERVOUS SYSTEM: No gross focal motor deficits noted. The patient is moving all 4 extremities. PSYCHIATRIC SYSTEM: No obvious hallucinations or delusions. LABORATORY DATA: White count of 4, H and H 6.7 and 21, platelet count 118, MCV 93 with 63% neutrophils. PT/INR 17 and 1.4 and PTT is 74. Potassium is 5.2, serum bicarb 24, BUN 39, creatinine 7.9, calcium 7.2, lactic acid 2.0. Liver enzymes within normal limits. Alkaline phosphatase is 318. CK levels 114. Magnesium 2.0. Albumin 2.6. TSH 5.51. Procalcitonin 11.62. Chest x-ray done shows pulmonary vascular congestion and mild patchy opacities bilaterally. EKG done shows sinus rhythm at 69 beats per minute. There is Q-wave seen in V2, V3 with poor R-wave progression. CLINICAL IMPRESSION AND PLAN: Patient will be admitted to ICU in view of him presenting with hypotension needing Levophed on arrival. He has had recurrent hospitalization with similar issues. The patient normally is on multiple antihypertensive medications. We will obtain blood and urine cultures. He has had chronic history of MRSA bacteremia for almost a year now. We will continue his vancomycin with hemodialysis and start cefepime here 1 g daily. Albumin infusions will be given for a total of 6 doses q.6 hourly. If needed, Levophed will be added. He will be on normal saline at 50 mL per hour. The patient is grossly hypotensive for hemodialysis to be done. We will consult Dr. Sofia, his draw machine operator. We will also consult Dr. Grayson for Infectious Disease. We will continue Cymbalta, Neurontin, Nexium, Florastor, sevelamer as before. Patient's overall prognosis is very poor. He has had recurrent hospitalizations and chronic MRSA bacteremia. Code status was discussed with him and his mom, both want to be full code. We will start him on clear-liquid diet and see if he tolerates. COVID-19 PCR is pending at present. Job ID: [id number]
[2020-10-27] MEDS ORDERED: Vancomycin 1 GM in Premix Bag 1 BAG IVPB SCH (23:00)
[2020-10-27] MEDS ORDERED: Cefepime 1 GM in Sodium Chloride 0.9% 100 ML IVPB SCH (23:00)
[2020-10-27] MEDS ORDERED: Vancomycin HCl 750 MG in Sodium Chloride 0.9% 250 ML 250 ML IVPB SCH ×2 (23:00→23:59)
[2020-10-27] MEDS ORDERED: Vancomycin HCl 250 MG in Sodium Chloride 0.9% 100 ML IVPB SCH (23:00)
[2020-10-27] MEDS ORDERED: HOLD VANCOMYCIN FOR LEVEL >20 FS SCH (23:00)
[2020-10-27] MEDS ORDERED: Vancomycin HCl 500 MG in Sodium Chloride 0.9% 100 ML IVPB SCH (23:00)
--- NOTE | 2020-10-27 23:02 | CON ---
DATE OF CONSULTATION: 10/27/2020 CONSULTING PHYSICIAN: ER physician. REASON FOR CONSULTATION: End-stage renal disease evaluation. REASON FOR ADMISSION: Low blood pressure and syncope. HISTORY OF PRESENT ILLNESS: This is a 25-year-old male with history of end-stage renal disease, hypertension, Goodpasture syndrome, history of renal transplant, came to the hospital with syncope. The patient is due for dialysis today and was going to dialysis and had a syncopal episode, taken to the hospital. He is feeling a little bit better. He was seen in the ER. No nausea, vomiting. No chest pain, palpitation. PAST MEDICAL HISTORY: Positive for end-stage renal disease, CHF, mitral valve endocarditis, peptic ulcer disease, anemia. PAST SURGICAL HISTORY: Dialysis access placement, mitral valve replacement, right kidney transplant, dialysis, shunt placement. HOME MEDICATIONS: Reviewed. ALLERGIES: LORACARBEF. SOCIAL HISTORY: History of smoking and illicit drug abuse in the past. FAMILY HISTORY: Noncontributory. REVIEW OF SYSTEMS: CONSTITUTIONAL: Negative for weight loss or gain, ability to conduct usual activities. SKIN: Negative for rash, itching. EYES: Negative for double vision, pain. ENT/MOUTH: Negative for nose bleeding, neck stiffness, pain, tenderness. CARDIOVASCULAR: Negative for palpitations, dyspnea on exertion, orthopnea. RESPIRATORY: Negative for shortness of breath, wheezing, cough, hemoptysis, fever or night sweats. GASTROINTESTINAL: Negative for poor appetite, abdominal pain, heartburn, nausea, vomiting, constipation, or diarrhea. GENITOURINARY: Negative for urgency, frequency, dysuria, nocturia. MUSCULOSKELETAL: Negative for pain, swelling. NEUROLOGIC/PSYCHIATRIC: Negative for anxiety, depression. ALLERGY/IMMUNOLOGIC: Negative for skin rash, bleeding tendency. PHYSICAL EXAMINATION: GENERAL: This is a well-built male, in mild distress. VITAL SIGNS: Reviewed. HEENT: Atraumatic, normocephalic. Oral mucosa moist. NECK: Supple. CVS: S1 and S2. Rate and rhythm regular. RESPIRATORY: Clear. GI: Abdomen is soft. MUSCULOSKELETAL: 1+ edema. DERMATOLOGIC: No skin rash. NEUROLOGIC: He is awake, but somnolent and lethargic. LABORATORY DATA: Pending. ASSESSMENT AND PLAN: 1. End-stage renal disease. We will have dialysis as tolerated. Labs are pending. 2. Edema. 3. Hypertension. 4. Anemia of chronic disease. 5. Syncope with hypotension, might limit ultrafiltration. 6. Plan to have dialysis. The patient gets admitted and labs are pending now. The patient is seen at the ER. Thank you for the consult. Job ID: [id number]
[2020-10-27] MEDS: Gabapentin 100 MG CAP PO SCH (23:56)
[2020-10-27] MEDS: Sevelamer Carbonate 800 MG TAB PO SCH (23:56)
[2020-10-28] MEDS: Sevelamer Carbonate 800 MG TAB PO SCH ×4 (00:04→16:06)
[2020-10-28] MEDS: Albumin 25% 25 GM/100 ML BOT IVPB SCH ×5 (00:13→23:02)
[2020-10-28 04:53] LABS: #Eosinphils 0.2 thou/uL (0.0-0.7); #Lymphocytes 0.9 thou/uL (1.20-3.40); #Monocytes 0.5 thou/uL (0.11-0.59); #Neutrophils 2.5 thou/uL (1.40-6.50); %Basophils 0.4 % (0.0-1.0); %Eosinophils 5.9 % (0.0-10.0); %Lymphocytes 21.7 % (21.0-51.0); %Monocytes 11.1 % (0.0-10.0); Hemoglobin 7.5 g/dL (14.0-18.0); Mean Corpuscular Hemoglobin 29.9 pg (27.0-31.0); Mean Corpuscular Volume 93.6 fL (78.0-98.0); Mean Platelet Volume 9.6 fL (7.4-10.4); Platelet Count 107 thou/uL (130-400); Red Blood Cell (RBC) Count 2.51 mill/uL (4.70-6.10); White Blood Cell (WBC) Count 4.1 thou/uL (4.8-10.8)
[2020-10-28 05:08] LABS: ALT (SGPT) 7 U/L (8-55); AST (SGOT) 23 U/L (5-34); Albumin 2.6 g/dL (3.5-5.0); Alkaline Phosphatase 280 U/L (40-110); Anion Gap 18 mmol/L (10-20); BUN (Urea Nitrogen) 42 mg/dL (8.9-20.6); Calc. Creatinine Clearance 16 mL/min (70-130); Calcium 7.1 mg/dL (7.8-10.44); Carbon Dioxide 26 mmol/L (22-29); Chloride 98 mmol/L (98-107); Globulin 4.1 g/dL (2.4-3.5); Glucose 87 mg/dL (70-105); Potassium 5.5 mmol/L (3.5-5.1); Protein, Total 6.7 g/dL (6.0-8.3); Sodium 136 mmol/L (136-145)
[2020-10-28] MEDS: Gabapentin 100 MG CAP PO SCH ×2 (08:12→20:27)
[2020-10-28] MEDS: DULoxetine 60 MG CAP PO SCH (08:13)
[2020-10-28] MEDS ORDERED: Fentanyl 100 MCG/2 ML VIAL SLOW IVP PRN (08:18)
--- NOTE | 2020-10-28 08:21 | PDOC.HOSPP ---
- Subjective Encounter Date: 10/28/20 (f/u sepsis) Encounter Time: 08:19 Subjective: Pt c/o abdominal pain - primarily on the right side - upper and lower with radiation to the epigastric area. He c/o itching as well and requests benadryl. He was on levophed until around midnight, is not currently on any infusions. - Objective Vital Signs & Weight: Vital Signs (12 hours) Temp Pulse Ox 10/28/20 04:00 97.9 F 10/28/20 01:00 97.6 F 10/27/20 22:51 97.6 F 10/27/20 22:30 100 Weight Weight 179 lb 10.828 oz Most Recent Monitor Data Heart Rate from ECG 79 NIBP 105/62 NIBP BP-Mean 76 Respiration from ECG 21 SpO2 94 I&O: 10/27/20 10/28/20 10/29/20 06:59 06:59 06:59 Intake Total 1332 Output Total 1 Balance 1332 -1 Result Diagrams: 10/28/20 04:20 10/28/20 04:20 EKG Reviewed by me: Yes (tele - sinus 70's, no alarms) Hospitalist ROS - Medication Medications: Active Medications Generic Name Dose Route Start Last Admin Trade Name Freq PRN Reason Stop Dose Admin Acetaminophen 650 mg 10/27/20 17:00 10/27/20 23:57 Acetaminophen 325 Mg Tab PO 650 mg Q4H PRN Administration Headache/Fever/Mild Pain (1-3) Albumin Human 25 gm 10/27/20 23:59 10/28/20 05:19 Albumin 25% 25 Gm/100 Ml Bot IVPB 10/29/20 06:01 25 gm Q6HR ALANNA Administration Duloxetine HCl 60 mg 10/28/20 09:00 10/28/20 08:13 Duloxetine 60 Mg Cap PO 60 mg DAILY ALANNA Administration Gabapentin 100 mg 10/27/20 21:00 10/28/20 08:12 Gabapentin 100 Mg Cap PO 100 mg BID ALANNA Administration Pantoprazole Sodium 40 mg 10/28/20 09:00 10/28/20 08:12 Pantoprazole 40 Mg Tab PO 40 mg DAILY ALANNA Administration Sevelamer Carbonate 2,400 mg 10/27/20 17:00 10/28/20 08:13 Sevelamer Carbonate 800 Mg Tab PO 2,400 mg TID-WM ALANNA Administration Sevelamer Carbonate 2,400 mg 10/27/20 23:45 10/27/20 23:56 Sevelamer Carbonate 800 Mg Tab PO 10/28/20 23:46 2,400 mg NOW ALANNA Administration - Exam General Appearance: NAD Heart: RRR, no murmur Respiratory: CTAB, no wheezes, no rales, no ronchi Gastrointestinal: soft Gastrointestinal - other findings: ttp throughout, soft, voluntary guarding Extremities: no cyanosis, no clubbing, no edema Psychiatric: normal affect Hosp A/P (1) Abdominal pain Code(s): R10.9 - UNSPECIFIED ABDOMINAL PAIN Status: Acute Qualifiers: Abdominal location: generalized Qualified Code(s): R10.84 - Generalized abdominal pain (2) Acute on chronic anemia Code(s): D64.9 - ANEMIA, UNSPECIFIED Status: Acute (3) Sepsis Code(s): A41.9 - SEPSIS, UNSPECIFIED ORGANISM Status: Acute Qualifiers: Sepsis type: sepsis due to unspecified organism Severe sepsis shock status: without septic shock (4) ESRD (end stage renal disease) on dialysis Code(s): N18.6 - END STAGE RENAL DISEASE; Z99.2 - DEPENDENCE ON RENAL DIALYSIS Status: Chronic (5) Hyperkalemia Code(s): E87.5 - HYPERKALEMIA Status: Acute (6) Pancytopenia Code(s): D61.818 - OTHER PANCYTOPENIA Status: Acute - Plan Concern for sepsis given hypotension requiring pressor support - monitor bp's - continue antibiotics - follow blood cultures Abd pain - acute on chronic - XR today to eval for interval change - possible developing obstruction on CT scan. Ileus unlikely as pt has active bowel sounds - low dose fentanyl prn - pt requesting morphine - changed to low dose IV prn - s/p paracentesis by report from RN with removal of 500 ml - monitor ESRD with hyperkalemia today - appreciate Nephro consult Pancytopenia - thrombocytopenia and anemia chronic, leukopenia sub-acute - monitor - s/p 1 unit prbc, no indication for additional transfusion at this moment Other medical conditions - continue home meds prn Itching - add prn benadryl iv dvt prophy - scd's gi prophy - not indicated code status full reviewed plan of care with patient, no questions or further needs at end of eval
[2020-10-28] MEDS: diphenhydrAMINE 50 MG/ML VIAL IVP PRN ×3 (09:18→22:45)
[2020-10-28] MEDS: Morphine 2 MG/ML VIAL SLOW IVP PRN ×4 (09:18→22:22)
[2020-10-28] MEDS ORDERED: Epoetin (ESRD) 20,000 UNITS/ML SC ONE (09:30)
--- NOTE | 2020-10-28 09:38 | CON ---
DATE OF CONSULTATION: 10/28/2020 CONSULTING PHYSICIAN: Dr. Glover. REASON FOR CONSULTATION: ICD placement. HISTORY OF PRESENT ILLNESS: The patient is a 25-year-old who presented with a syncopal type spell. He says he was trying to get out of a car, became dizzy and passed out for nearly 10 to 15 minutes. Apparently, he was initially hypotensive with a pressure in the 60s. He had been on the way of dialysis, but never had the dialysis performed. My understanding is he was placed on Levophed that has now been weaned off. He feels back to baseline. PAST MEDICAL HISTORY: 1. End-stage renal disease. 2. Infective endocarditis requiring mitral valve replacement x2. 3. Ascites with intermittent paracentesis necessary. 4. Goodpasture disease. 5. Chronic eczema. SOCIAL HISTORY: Does not smoke. Does not drink. Does not use illicit drugs. FAMILY MEDICAL HISTORY: Remarkable for hypertension. MEDICATIONS: 1. Gabapentin. 2. Nexium. 3. Labetalol. 4. Sevelamer. 5. Amitriptyline. 6. Clonidine. 7. Cymbalta. 8. Florastor. 9. Hydralazine. 10. Procardia. 11. Rifampin. ALLERGIES: LORACARBEF. REVIEW OF SYSTEMS: Otherwise negative. PHYSICAL EXAMINATION: VITAL SIGNS: Temperature 97.9, pulse 79, blood pressure 105/62, O2 sat 94%. GENERAL: He is awake, alert, and in no acute distress. HEENT: Unremarkable. NECK: No adenopathy or JVD. LUNGS: Fairly clear anteriorly. CARDIOVASCULAR: S1 and S2, regular. ABDOMEN: Distended with ascites. EXTREMITIES: Right upper arm AV shunt with palpable thrill. LABORATORY DATA: White blood cell count 4.1, hemoglobin 7.5, hematocrit 23.5, and platelet count 107. Sodium 136, potassium 5.5, chloride 98, CO2 of 26, BUN 42, creatinine 8.3, glucose 87. INR is 1.4. COVID test was negative. Chest x-ray demonstrates cardiomegaly with some pulmonary edema. ASSESSMENT: 1. Hypotension with a syncopal type spell. 2. Chronic renal failure. 3. Question of concurrent sepsis. 4. Hyperkalemia. 5. Anemia. PLAN: 1. He is undergoing dialysis this morning. 2. He has been placed on empiric antibiotics by the hospitalist group and culture results are pending. 3. He has been weaned off vasopressors. 4. He likely needs investigation by paracentesis given that he has abdominal pain and ascites. Spontaneous bacterial peritonitis likely needs to be ruled out. Job ID: [id number]
[2020-10-28] MEDS ORDERED: EPOETIN ALFA-EPBX (ESRD) 10,000 UNIT/ML VIAL IVP SCH (09:45)
[2020-10-28] MEDS ORDERED: EPOETIN ALFA-EPBX (ESRD) 10,000 UNIT/ML VIAL SC SCH (09:45)
--- NOTE | 2020-10-28 11:21 | PRG ---
DATE OF SERVICE: 10/28/2020 SUBJECTIVE: Patient was seen and examined at bedside and overnight events noted. Patient denies any shortness of breath or chest pain or palpitation. No history of nausea or vomiting or diarrhea or fever or chills or cramps. OBJECTIVE: GENERAL: This is a well-built male, in no apparent distress. VITAL SIGNS: Temperature 97.9. Heart Rate 72. Respiratory rate 20. Blood pressure 105/62. HEENT: Atraumatic, normocephalic. Oral mucosa is moist. NECK: Supple. CARDIOVASCULAR: S1, S2 heard. Rate and rhythm regular. RESPIRATORY: Clear to auscultation. GASTROINTESTINAL: Abdomen is soft. MUSCULOSKELETAL: No tenderness. No edema. DERMATOLOGIC: No skin rash. NEUROLOGIC: Alert and awake and oriented x3. No focal neurologic deficits. Moving all the extremities. PSYCHIATRIC: Mood and affect normal. LABORATORY DATA: Potassium 5.5, BUN is 42, and creatinine is 8.29. ASSESSMENT AND PLAN: 1. End-stage renal disease. The patient is seen during dialysis, tolerating well. 2. Hyperkalemia. We will have dialysis. 3. Edema. We will remove fluid. Currently, the patient is hypotensive, and we will be cautious with fluid removal. 4. History of hypertension, but currently hypotensive. Hold blood pressure medicines and rule out any infection. 5. Anemia of chronic disease. Plan to have dialysis as tolerated. Limit potassium intake. Job ID: [id number]
--- NOTE | 2020-10-28 11:34 | RAD ---
EXAM: Abdomen one view: HISTORY: Follow-up septic shock COMPARISON: Abdomen and pelvic CT, 10/27/2020 FINDINGS: Bilateral fairly extensive bibasilar pulmonary parenchymal changes. Evidence for chronic right pelvic transplanted kidney with extensive calcifications. Evidence for sclerotic changes within the bony skeleton, nonspecific but may well be related to chron ic renal disease. Scattered gas in nondilated small bowel and stomach and minimal gas and fecal material in the colon, nonspecific but may well be associated with ascites seen on prior CT. No evidence for large or small bowel obstruction. No free intraperitoneal air or extraluminal gas. No overt calculus. IMPRESSION: No significant change in the appearance of the abdomen compared to the prior CT.
[2020-10-28] MEDS: Saccharomyces boulardii 250 MG CAP PO SCH (12:27)
[2020-10-28 12:51] LABS: Vancomycin, Random 9.8 ug/mL (See Comment)
[2020-10-28] MEDS ORDERED: Vancomycin 1 GM in Premix Bag 1 BAG IVPB SCH ×2 (13:15→13:30)
[2020-10-28] MEDS ORDERED: Vancomycin HCl 1.25 GM in Sodium Chloride 0.9% 250 ML 250 ML IVPB SCH (13:15)
[2020-10-28] MEDS ORDERED: Vancomycin HCl 750 MG in Sodium Chloride 0.9% 250 ML 250 ML IVPB SCH (13:15)
[2020-10-28] MEDS ORDERED: Vancomycin HCl 500 MG in Sodium Chloride 0.9% 100 ML IVPB SCH (13:15)
[2020-10-28] MEDS: Cefepime 0.5 GM, Admixture Fee 1 EACH in Sodium Chloride 0.9% 100 ML IVPB SCH (16:19)
[2020-10-28] MEDS ORDERED: Fentanyl 100 MCG/2 ML VIAL SLOW IVP SCH (20:04)
[2020-10-28] MEDS ORDERED: Cefepime 0.5 GM, Admixture Fee 1 EACH in Sodium Chloride 0.9% 100 ML IVPB SCH (21:00)
[2020-10-29] MEDS: Morphine 2 MG/ML VIAL SLOW IVP PRN ×5 (03:59→21:56)
[2020-10-29] MEDS: diphenhydrAMINE 50 MG/ML VIAL IVP PRN ×4 (04:07→23:35)
[2020-10-29] MEDS: Saccharomyces boulardii 250 MG CAP PO SCH (07:34)
[2020-10-29] MEDS: Sevelamer Carbonate 800 MG TAB PO SCH ×4 (07:34→16:29)
[2020-10-29] MEDS: DULoxetine 60 MG CAP PO SCH (07:34)
[2020-10-29] MEDS: Gabapentin 100 MG CAP PO SCH ×2 (07:35→21:57)
[2020-10-29] MEDS: Simethicone Chewable 80 MG TAB PO SCH ×4 (09:05→21:57)
[2020-10-29 09:43] LABS: CRP (Inflammatory) 12.71 mg/dL (= or < 0.5)
[2020-10-29] MEDS: Metoclopramide HCl 10 MG/2 ML VIAL IVP SCH ×3 (10:47→21:57)
--- NOTE | 2020-10-29 14:12 | PRG ---
DATE OF SERVICE: 10/29/2020 SUBJECTIVE: Patient was seen and examined at bedside and overnight events noted. Patient denies any shortness of breath or chest pain or palpitation. No history of nausea or vomiting or diarrhea or fever or chills or cramps. OBJECTIVE: GENERAL: This is a well-built male, in no apparent distress. VITAL SIGNS: Temperature 97.4. Heart Rate 91. Respiratory rate . Blood Pressure 142/98. HEENT: Atraumatic, normocephalic. Oral mucosa is moist. NECK: Supple. CARDIOVASCULAR: S1, S2 heard. Rate and rhythm regular. RESPIRATORY: Clear to auscultation. GASTROINTESTINAL: Abdomen is soft. MUSCULOSKELETAL: No tenderness. No edema. DERMATOLOGIC: No skin rash. NEUROLOGIC: Alert and awake and oriented x3. No focal neurologic deficits. Moving all the extremities. PSYCHIATRIC: Mood and affect normal. LABORATORY DATA: No labs done today. ASSESSMENT AND PLAN: 1. End-stage renal disease. Continue hemodialysis on Friday, Friday, and Friday. 2. Hyperkalemia, limit potassium intake. 3. Edema. 4. Hypertension. 5. Anemia of chronic disease. Continue dialysis Friday, Friday, and Friday. Limit potassium intake. We will follow. Recheck labs in the morning. Job ID: [id number]
--- NOTE | 2020-10-29 15:10 | PRG ---
DATE OF SERVICE: 10/29/2020 SUBJECTIVE: The patient appears to be doing well. He is having some abdominal pain. OBJECTIVE: VITAL SIGNS: His temperature is 97.4, pulse 91, blood pressure 142/81, and O2 saturation 91% on room air. HEENT: Unremarkable. NECK: No adenopathy or JVD. LUNGS: Clear. ABDOMEN: Distended, protuberant, somewhat tender to palpation. EXTREMITIES: No clubbing or cyanosis. Has severe muscle wasting. LABORATORY DATA: No labs were done today. Micro shows no growth today. ASSESSMENT: 1. Hypotension with a syncopal spell. 2. Question of sepsis. 3. Hyperkalemia. 4. Anemia. 5. Chronic renal failure. 6. Possible peritonitis. RECOMMENDATIONS: 1. I would recommend GI consult or interventional radiology consult with paracentesis to investigate possibility of SBP. 2. Continue antibiotics. Job ID: [id number]
[2020-10-29] MEDS: Cefepime 0.5 GM, Admixture Fee 1 EACH in Sodium Chloride 0.9% 100 ML IVPB SCH (16:29)
--- NOTE | 2020-10-29 18:08 | PDOC.HOSPP ---
- Subjective Subjective: Assuming care: Patient still complaining of ongoing abdominal pain. No fever. He had a bowel movement yesterday. Repeated x-ray was unremarkable. Apparently, patient stated that he has been dealing with abdominal pain intermittently for the past couple months. His blood pressure has been tolerated well since he off of Levophed. - Objective Vital Signs & Weight: Vital Signs (12 hours) Pulse Ox 10/29/20 08:00 100 Weight Weight 181 lb 3.2 oz Most Recent Monitor Data Heart Rate from ECG 104 NIBP 142/98 NIBP BP-Mean 112 Respiration from ECG 31 SpO2 98 I&O: 10/28/20 10/29/20 10/30/20 06:59 06:59 06:59 Intake Total 1332 2190 Output Total 1 Balance 1332 2189 Result Diagrams: 10/28/20 04:20 10/28/20 04:20 Hospitalist ROS - Medication Medications: Active Medications Generic Name Dose Route Start Last Admin Trade Name Freq PRN Reason Stop Dose Admin Acetaminophen 650 mg 10/27/20 17:00 10/27/20 23:57 Acetaminophen 325 Mg Tab PO 650 mg Q4H PRN Administration Headache/Fever/Mild Pain (1-3) Diphenhydramine HCl 25 mg 10/28/20 08:18 10/29/20 16:29 Diphenhydramine 50 Mg/Ml Vial IVP 25 mg Q6H PRN Administration Itching Gabapentin 100 mg 10/27/20 21:00 10/29/20 07:35 Gabapentin 100 Mg Cap PO 100 mg BID ALANNA Administration Cefepime HCl 0.5 gm/ 100 mls @ 200 mls/hr 10/28/20 16:00 10/29/20 16:29 Miscellaneous Medication 1 IVPB 100 mls each/ Sodium Chloride 1600 ALANNA Administration Metoclopramide HCl 5 mg 10/29/20 11:30 10/29/20 16:29 Metoclopramide Hcl 10 Mg/2 Ml Vial IVP 5 mg ACHS ALANNA Administration Morphine Sulfate 2 mg 10/28/20 08:35 10/29/20 17:39 Morphine 2 Mg/Ml Vial SLOW IVP 2 mg Q4H PRN Administration Moderate to Severe Pain (6-10) Pantoprazole Sodium 40 mg 10/28/20 09:00 10/29/20 07:34 Pantoprazole 40 Mg Tab PO 40 mg DAILY ALANNA Administration Saccharomyces Boulardii 250 mg 10/28/20 09:00 10/29/20 07:34 Saccharomyces Boulardii 250 Mg Cap PO 250 mg DAILY ALANNA Administration Sevelamer Carbonate 2,400 mg 10/27/20 17:00 10/29/20 16:29 Sevelamer Carbonate 800 Mg Tab PO 2,400 mg TID-WM ALANNA Administration Simethicone 80 mg 10/29/20 09:00 10/29/20 13:40 Simethicone Chewable 80 Mg Tab PO 80 mg PCHS ALANNA Administration Sodium Chloride 10 ml 10/28/20 21:00 10/29/20 07:36 Flush - Normal Saline 10 Ml Syringe IVF 10 ml Q12HR ALANNA Administration Sodium Chloride 10 ml 10/28/20 09:15 10/28/20 22:47 Flush - Normal Saline 10 Ml Syringe IVF 10 ml PRN PRN Administration Saline Flush Hosp A/P - Plan This is an unfortunate 25 years old -[place] gentleman who has multiple comorbidities including ESRD on dialysis, history of renal transplant, 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 Patient was found hypotensive with systolic blood pressures in the 60s. He was given volume resuscitation, and subsequently started on vasopressor support with Levophed, and admitted to hospitalist service. Abdominal Pain - unclear etiology, apparently it's a chronic issue, pt reports he has had this problem for months. --CT abd/pel reviewed. --Reportedly s/p paracentensis with 500 ml removed. However, I didn't see fluid analysis ordered --Amylase/lipase WNL. --CRP elevated. Will continue with IV abx for possible SBP. --His abd is still distended on exam, but has had regular BM and wanted to eat, unlikely that he is obstructed. --reorder peritoneal fluid analysis, and follow cultures. --Will follow clinically, consider rpt imaging, paracentesis and GI eval. Hypotension --resolved. was on vasopressor support Syncope --likely d/t hypotensive episode --Echo reviewed ESRD on HD --cont dialysis as per nephrology Anemia of chronic disease --no role for transfusion at this time
--- NOTE | 2020-10-29 22:40 | CON ---
DATE OF CONSULTATION: 10/29/2020 REASON FOR CONSULTATION: A 25-year-old whom I have seen multiple times in both hospitals, the last time was in August when he presented with a history of end-stage renal disease secondary to Goodpasture syndrome with prior failed renal transplant and hemodialysis through an AV fistula in the right upper extremity. He had previously been diagnosed with MRSA bacteremia due to mitral valve endocarditis and had replacement of the mitral valve, October of last year. November of this year, he went home, resumed dialysis and then had fever again with the recurrence of MRSA bacteremia. He had some back pain, but lumbosacral spine MRI did not show any inflammatory changes. He then left the hospital against medical advice and finishing the treatment for the endocarditis at dialysis through a vancomycin sliding scale. In May, he was admitted with fever, chest pain, fatigue, body aches. The MICHAEL showed a thickened mitral valve prosthesis with possible vegetation. A CT of chest did not show any remarkable findings, but at May 08, blood cultures were positive for MRSA, so he was treated again this time with gentamicin, rifampin and vancomycin sliding scale. During this admission, he started complaining of this abdominal pain, which he is still having and the symptom that causes the most distress for him is this abdominal pain, which according to my note from September 11 had resolved. He was not having diarrhea. The abdomen was markedly distended with ascites. His glomerular basement membrane antibody was less than 7. His last positive blood cultures are from September 01. Repeat blood cultures from September 20 were negative, then he has had two more sets on October 23, which were negative 5 days. In terms of imaging studies, he has had echocardiograms, which did not show any vegetation. The patient declined a MICHAEL in August. He had a CT of abdomen and pelvis on September 07, which showed edema in the subcutaneous fat, right small pleural effusion. Suboptimal enhancement of solid organs. No pericardial effusion. The spleen was enlarged measuring 14.5 cm. The liver was enlarged measuring 22 cm without masses. There was a large amount of ascites and a calcified right renal transplant in the pelvis. In May, the patient had a diagnostic paracentesis, which demonstrated 336 wbc's per microliter with 95% mononuclear wbc's, protein and LDH were not done at this opportunity. The pathology with no malignant cells, predominantly benign mesothelial cells noted. On June 30, 2020, the patient had an ultrasound paracentesis for therapeutic intent. 5.3 L of straw-colored fluid was removed. In September 12, the patient had a large volume paracentesis with 4 L of dark brown liquid removed. On September 22, he was readmitted with abdominal pain, the same one that he has had since 3 months ago. He was lethargic and weak. He had 5 L of fluid removed and I do not think any sample was submitted for testing. On 10/02, he was admitted again with abdominal pain. The pain is localized to the right side of the abdomen, right upper quadrant, mostly kind of wrapping around associated with tenderness. The patient had another large volume paracentesis with 5.4 L removed. No description of the ascitic fluid was given and does not look like it was submitted for testing either. The final paracentesis was on 10/09 before this admission and this was a diagnostic tap. The volume of ascites prior to the procedure was found to be small to moderate, about 6 mL of hemorrhagic fluid was submitted and the fluid had 47,000 rbc's and 2400 wbc's with 43% neutrophils and 15% lymphocytes. At this time, cultures were submitted and no organisms were seen and no growth in 5 days. Then in October, he was admitted to [facility] on 10/23. He was hypotensive and was felt to be secondary to dialysis plus multiple blood pressure medications. Systolic dropped to mid 70s and is given IV fluids. No mention is made of the abdominal pain, but the patient states that he has had pain nonstop for the past 3 months localized to the right side of the abdomen. Finally, latest admission before the current one, which he was discharged on 11/22, the hypotension is mentioned, but no abdominal pain is mentioned during this admission at [facility]. So, now the patient is brought back to [facility] and he does not remember exactly what happened, but he was somewhat unconscious when he was brought in here and he missed his dialysis and was fatigued, weak and again with severe abdominal pain wrapping around the right upper quadrant. He has skin xerosis. He does not want to use emollients because feels like they are going to hurt in the skin. He has no headaches. No visual symptoms, sore throat, odynophagia, or dysphagia. No vomiting. No dyspnea. The abdomen is distended and he has weakness in lower extremities, but no focal weakness. He does not have any urine output. PAST MEDICAL HISTORY: End-stage renal disease secondary to Goodpasture syndrome with failed prior renal transplant on hemodialysis through an AV fistula. 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 Last one was completed in September with presumed resolution of the endocarditis. The patient only had one MICHAEL at the end of 2018 or beginning of 2019, which showed a small vegetation in the mitral valve, chronic persisting abdominal pain associated with findings that are suggestive of peritonitis of not yet clear etiology. Although, the usual bacterial peritonitis is a concern as well as the possibility of a portion of sick pathogen. SURGICAL HISTORY: Includes renal transplant, which failed multiple AV fistulas for access, mitral valve replacement following diagnosis of mitral valve endocarditis by MRSA, mitral valve developed infection and had to be retreated, completion of this last treatment was in September of this year with apparent resolution. SOCIAL HISTORY: No smoking. No drug use. Does not drink. ALLERGIES: LORACARBEF, NOT CONFIRMED. MEDICATION LIST: At the moment, he is on, 1. Dulcolax. 2. Tums. 3. Benadryl. 4. Retacrit. 5. Neurontin. 6. Vancomycin sliding scale. 7. Simethicone. FAMILY HISTORY: Noncontributory. PHYSICAL EXAMINATION: VITAL SIGNS: He has been afebrile here in the hospital. BP 140/98, respiratory rate 24 to 30, heart rate 81 to 104, O2 saturation 100 with a nasal cannula O2 at 4 L. GENERAL: The patient appears chronically ill. He has diffuse skin dryness with excoriation. He has very prominent AV fistulas in the right and left upper extremities and peripheral IV access. He does not have a Pimentel catheter. He is awake and alert and is complaining of this abdominal pain. It has been there for 3 months without relief. HEENT: The ocular movements are conjugate. Oral cavity moist. Teeth in good shape. NECK: Supple. No jugular vein distention. LUNGS: Symmetric breath sounds with faint basilar crackles. HEART: S1-S2 without murmurs. ABDOMEN: Markedly distended with positive fluid wave. There is marked tenderness in the right upper quadrant with rebound tenderness and signs of peritonitis. No bladder distention. EXTREMITIES: No joint inflammatory activity. No edema. Pulses 1+ in dorsalis pedis. Plantar responses are flexor. NEUROLOGIC: He is awake, oriented, follows commands. LABORATORY DATA: White cell count is 4.1, hemoglobin 7.5, platelets 107, 61% neutrophils. INR 1.4. Creatinine is 8.29, bilirubin 1.0, ALT 7, alkaline phosphatase 280. CRP 12.71. Albumin 2.6. Procal 11. Peritoneal fluid LDH was 248 and again the latest paracentesis was completed during this admission I believe and maybe not. I do not see a note here stating the fact there is an abdomen x-ray from 10/28, which showed extensive bilateral pulmonary parenchymal changes, chronic right pelvic transplant kidney, sclerotic changes in the bony skeleton. No bowel obstruction. CT chest, abdomen, and pelvis; no IV contrast was given. No mediastinal mass, lymphadenopathy or hematoma. Heart was enlarged. Limited evaluation of the abdominal contents. Gallbladder was contracted. No evidence of bowel obstruction, but a slightly prominent small bowel loops in the left ivette-abdomen. Free fluid in the pelvis, atelectasis in the lung bases. His SARS-CoV PCR was not detected on September 18 and on October 27. ASSESSMENT: 1. History of Goodpasture syndrome with end-stage renal disease, on hemodialysis with an AV fistula. 2. MRSA mitral valve endocarditis, which required a mitral valve replacement in [place] last year. 3. Recrudescence of endocarditis at this time in the prostatic mitral valve treated twice, the last time was in August and finished in September with presumed resolution thus far. 4. Persistence of the abdominal pain associated with large volume ascites, which has required paracentesis multiple times this year. The pain is concentrated in the right upper quadrant and there is marked tenderness on percussion at that area. The evaluation of the ascitic fluid once showed a lymphocytic pleocytosis, but the last one had a neutrophilic pleocytosis suggestive of peritonitis. The cultures were negative and now is admitted with hypotension in the persistence of this pain. The cultures are negative from the blood. He has not had a fever. DISCUSSION: It seems like the problem that has taken center stage now is the abdominal issue. This is associated with the evidence suggestive of peritonitis. This could be a regular spontaneous bacterial peritonitis due to a gram-negative organism or an alternate bacterial pathogen or an opportunistic pathogen for example fungal or mycobacterial etiology. Malignancy would be less likely. We will go ahead and repeat the CT of the abdomen with contrast and may consider we will start him on a gram-negative coverage with meropenem adjusted for renal function and see how he responds. If he persists with pain in that location, then we may consider laparoscopy to see what the peritoneum looks like there. Resampling of it for cell count, protein, cultures including fungal and mycobacterial would be considered then. Job ID: [id number] MTDD
[2020-10-30] MEDS: Morphine 2 MG/ML VIAL SLOW IVP PRN ×3 (03:27→18:20)
[2020-10-30 05:10] LABS: #Eosinphils 0.4 thou/uL (0.0-0.7); #Monocytes 0.5 thou/uL (0.11-0.59); #Neutrophils 3.3 thou/uL (1.40-6.50); %Basophils 0.4 % (0.0-1.0); %Lymphocytes 18.9 % (21.0-51.0); %Monocytes 9.3 % (0.0-10.0); %Neutrophils 64.5 % (42.0-75.0); Hemoglobin 7.2 g/dL (14.0-18.0); Mean Corpuscular Hemoglobin 29.3 pg (27.0-31.0); Mean Corpuscular Volume 91.6 fL (78.0-98.0); Mean Platelet Volume 10.4 fL (7.4-10.4); Platelet Count 92 thou/uL (130-400); RBC Distribution Width 16.4 % (11.5-14.5); Red Blood Cell (RBC) Count 2.44 mill/uL (4.70-6.10); White Blood Cell (WBC) Count 5.1 thou/uL (4.8-10.8)
[2020-10-30 05:34] LABS: Anion Gap 18 mmol/L (10-20); BUN (Urea Nitrogen) 32 mg/dL (8.9-20.6); Calc. Creatinine Clearance 19 mL/min (70-130); Calcium 8.3 mg/dL (7.8-10.44); Carbon Dioxide 26 mmol/L (22-29); Chloride 95 mmol/L (98-107); Glucose 76 mg/dL (70-105); Potassium 5.3 mmol/L (3.5-5.1); Sodium 134 mmol/L (136-145)
[2020-10-30] MEDS: diphenhydrAMINE 50 MG/ML VIAL IVP PRN (06:28)
[2020-10-30] MEDS: Metoclopramide HCl 10 MG/2 ML VIAL IVP SCH ×2 (08:15→12:29)
[2020-10-30] MEDS: Gabapentin 100 MG CAP PO SCH (08:15)
[2020-10-30] MEDS: Sevelamer Carbonate 800 MG TAB PO SCH ×3 (08:15→17:57)
[2020-10-30] MEDS: Meropenem 500 MG in Sodium Chloride 0.9% 100 ML IVPB SCH (08:16)
[2020-10-30] MEDS: Saccharomyces boulardii 250 MG CAP PO SCH (08:16)
[2020-10-30] MEDS: Simethicone Chewable 80 MG TAB PO SCH ×4 (08:16→21:21)
[2020-10-30] MEDS: Ondansetron PF 4 MG/2 ML Vial IVP PRN (08:31)
[2020-10-30] MEDS ORDERED: hydrOXYzine 25 MG TAB PO PRN (08:37)
[2020-10-30] MEDS ORDERED: diphenhydrAMINE 25 MG in Sodium Chloride 0.9% 50 ML IVPB PRN (08:37)
[2020-10-30] MEDS ORDERED: hydrOXYzine 25 MG TAB PO SCH (08:45)
[2020-10-30] MEDS ORDERED: Epoetin (ESRD) 20,000 UNITS/ML IVP SCH (09:03)
[2020-10-30 09:35] LABS: Vancomycin, Random 20.7 ug/mL (See Comment)
[2020-10-30] MEDS ORDERED: Lidocaine 1% PF 5 ML VIAL ONE (10:39)
[2020-10-30] MEDS ORDERED: Sodium Bicarbonate 2.5 MEQ/5 ML VIAL ONE (10:39)
--- NOTE | 2020-10-30 11:36 | PRG ---
DATE OF SERVICE: 10/30/2020 SUBJECTIVE: Patient was seen and examined at bedside and overnight events noted. Patient denies any shortness of breath or chest pain or palpitation. No history of nausea or vomiting or diarrhea or fever or chills or cramps. OBJECTIVE: General: This is a well-built male in no apparent distress. Vital Signs: Temperature 98.6, pulse 101, respirations 20, blood pressure 132/96. HEENT: Atraumatic, normocephalic. Oral mucosa is moist. Neck: Supple. Cardiovascular: S1, S2 heard. Rate and rhythm regular. Respiratory: Clear to auscultation. Gastrointestinal: Abdomen is soft. Musculoskeletal: No tenderness. No edema. Dermatologic: No skin rash. Neurologic: Alert and awake and oriented x3. No focal neurologic deficits. Moving all the extremities. Psychiatric: Mood and affect normal. LABORATORY DATA: Potassium 5.3, BUN is 32, creatinine is 6.9. ASSESSMENT AND PLAN: 1. End-stage renal disease. Plan to have dialysis today and then Friday, Friday, and Friday. 2. Hyperkalemia. Advised to limit potassium intake. We will have dialysis today. 3. Edema. We will remove fluid if tolerated. 4. History of hypertension. 5. Anemia of chronic disease and Epogen as tolerated. We will follow. Job ID: [id number]
--- NOTE | 2020-10-30 12:25 | ULT ---
ULTRASOUND-GUIDED PARACENTESIS DIAGNOSTIC AND THERAPEUTIC: DATE: 10/30/2020 HISTORY: 25-year-old male with end-stage renal disease with symptomatic ascites: Abdominal distention TECHNIQUE: Signed informed consent obtained. A four-quadrant survey of abdomen performed. Site selected for puncture: right lower quadrant Overlying skin prepared and draped in usual sterile fashion. 25-gauge needle used to apply buffered lidocaine superficially and deeply. 5 Malay Yueh catheter with stylette advanced into the pocket of free intraperitoneal fluid. After drainage, the Yueh catheter was removed. Patient tolerated the procedure well. No complications. FINDINGS: Volume of ascites prior to procedure:Moderately large. Volume of ascites fluid in the drainage pocket after drainage:small Volume of ascites fluid drained:3200 mL Appearance of ascites fluid: Hemorrhagic, straw-colored. First drainage bag was sent to laboratory for analysis. IMPRESSION: 1. Successful therapeutic paracentesis, with drainage of 3.2 L of hemorrhagic ascites fluid. 2. Approximately 1.5 L of fluid sent to laboratory for analysis.
[2020-10-30] MEDS: EPOETIN ALFA-EPBX (ESRD) 10,000 UNIT/ML VIAL IVP SCH (12:29)
[2020-10-30] MEDS ORDERED: Iopamidol-370 76% 500 ML 1 ML ONE (13:01)
[2020-10-30] MEDS ORDERED: Dextrose 50% Abboject 50 ML SYRINGE ONE (13:16)
--- NOTE | 2020-10-30 13:21 | PQF ---
CLINICAL DOCUMENTATION CLARIFICATION FORM: Dear Dr. Estrada Date: 10/30/20 Please exercise your independent, professional judgment in responding to the clarification form. Clinical indicators are provided on the bottom of this form for your review. Please check appropriate box(es) to clarify if the following diagnosis has been ruled in our ruled out: "SEPSIS" [ X] Ruled in diagnosis [ X ] Continue to treat [ ] Resolved [ ] Ruled out diagnosis [ ] Improving [ ] Cannot rule out diagnosis [ ] Other diagnosis [ ] Unable to determine In addition, please specify: Present on Admission (POA): [ X ] Yes [ ] No [ ] Unable to determine For continuity of documentation, please document condition throughout progress notes and discharge summary. Thank You. To be completed by CDI/Coding staff for physician review: CLINICAL INDICATORS - SIGNS / SYMPTOMS / LABS / RESULTS AND LOCATION IN MR H&P- [facility]: "POSSIBLE SEPSIS" PN 10/28- [facility]: "ACUTE SEPSIS" PN 10/29- [facility]: "SYNCOPE LIKELY D/T HYPOTENSIVE EPISODE" WBC 10/27: 4.3 CRP 10/29: 12.71 RISK FACTORS / RESULTS AND LOCATION IN MR SBP IN THE 60s ON ARRIVAL (H&P- [facility]) H/O RECURRENT MRSA BACTEREMIA (H&P) H/O INFECTIVE ENDOCARDITIS (H&P) MULTIPLE SYNCOPAL EPISODES (ER NOTE) TREATMENTS / RESULTS AND LOCATION IN MR IV LEVOPHED STARTED IN ER (H&P) IV FLUIDS (ER) IV CEFEPIME (10/28-PRESENT) IV MEROPENEM (START 10/30) CARDIAC MONITORING CDS Signature: Claire Rodriguez RN Phone #: [phone] Date: 10/30/20 This is a permanent part of the Medical Record [facility]
[2020-10-30] MEDS ORDERED: Albumin 25% 25 GM/100 ML BOT IVPB PRN (13:24)
[2020-10-30 13:31] LABS: Body Fluid Source Ascites Body Fluid; Tube # EDTA
[2020-10-30 13:32] LABS: BF Color Yellow; Clarity Cloudy/Turbid (Clear)
--- NOTE | 2020-10-30 13:36 | CT ---
CT ABDOMEN AND PELVIS WITH IV CONTRAST: Oral contrast was administered. INDICATION: Chronic right upper quadrant abdominal pain with peritonitis. Comparison made to CT abdomen and pelvis dated 10/27/2020, which was performed without IV contrast. FINDINGS: Images through the lung bases again show small right pleural effusion and bibasilar lung opacities emerson ggesting infiltrate and atelectasis, not significantly changed. There is cardiomegaly and vascular co ngestion. Images through the abdomen and pelvis again show large volume ascites which is increased when compare d to 10/27/2020. Liver, spleen, and pancreas appear unremarkable. Gallbladder is contracted. Gallbladder is hyperdense , but is unchanged in appearance from the recent exam. Kidneys are atrophic. Adrenal glands normal. Review of intestinal tract reveals opacification of the proximal and mid small bowel loops. These opa cified loops show mild distention, measuring up to 2.0 cm diameter. The distal small bowel loops are not opacified. Some of the distal loops show mild nonspecific disten tion. Stool is seen throughout the colon. The calcified mass in the right lower quadrant has been previously described as a failed renal transp lant and is stable. Aorta is unremarkable. IMPRESSION: 1. Increasing ascites. 2. Mild nonspecific distention of the proximal mid small bowel loops which are opacified. The distal small bowel loops are not opacified, but continue to show nonspecific distention. While a low grade small bowel obstruction is a possibility, the findings may be a result of scanning prior to complete opacification of the distal small bowel. A follow-up dedicated small bowel exam is suggested if there is concern of low grade small bowel obstruction. POS: AGW
[2020-10-30 13:39] LABS: Fluid, Protein 4.4 g/dL (Not Available)
[2020-10-30] MEDS ORDERED: Dextrose 50% Abboject 50 ML SYRINGE SLOW IVP SCH (13:45)
[2020-10-30] MEDS ORDERED: Dextrose 5 % And 0.9 % NaCl 1,000 ML IV SCH (14:15)
[2020-10-30 14:48] LABS: RBC Count-Automated (BF) 5482 /cu.mm
[2020-10-30 14:49] LABS: RBC Count-Automated (BF) 5779 /cu.mm; WBC/Nucleated-Auto (BF) 735 uL
[2020-10-30 14:54] LABS: BF Color Yellow; Body Fluid Source Paracentesis Fluid; Clarity Cloudy/Turbid (Clear); Tube # EDTA
[2020-10-30 14:59] LABS: WBC/Nucleated-Auto (BF) 669 uL
[2020-10-30 15:05] LABS: BF Segmented Neutrophils 30 %; Cell Count Non Hematic 46 %; Eosinophils 2 %; Lymphocytes 22 %
[2020-10-30 15:09] LABS: BF Segmented Neutrophils 38 %; Cell Count Non Hematic 54 %; Lymphocytes 8 %
--- NOTE | 2020-10-30 16:50 | PDOC.HOSPP ---
- Subjective Subjective: Was seen examined at bedside. Patient underwent repeated CT scan today, so worsening ascites. He subsequently underwent repeated paracentesis, and had about 3.2 L of hemorrhagic ascitic fluid removed. Patient tolerated procedure well. Patient was seen examined in dialysis unit. He was found hypersomnolent, his blood glucose was 26, will recheck. Patient has been n.p.o. since last night for procedure. He was given D50, he responded appropriately. He also on multiple sedative medication, that may attribute to his altered mental status - Objective Vital Signs & Weight: Vital Signs (12 hours) Temp Pulse Resp BP Pulse Ox 10/30/20 15:03 97.6 F 90 18 131/92 H 98 10/30/20 12:11 98.3 F 95 20 159/108 H 98 10/30/20 07:45 99.6 F 101 H 16 132/96 H 100 10/30/20 07:38 99 Weight Weight 184 lb 9.6 oz Most Recent Monitor Data Heart Rate from ECG 100 NIBP 142/98 NIBP BP-Mean 112 Respiration from ECG 28 SpO2 98 I&O: 10/29/20 10/30/20 10/31/20 06:59 06:59 06:59 Intake Total 2190 Output Total 1 Balance 2189 Result Diagrams: 10/30/20 04:15 10/30/20 04:15 Additional Labs: Accuchecks 10/30/20 10/30/20 15:44 13:51 POC Glucose 89 90 Radiology Reviewed by me: Yes EKG Reviewed by me: Yes Hospitalist ROS - Medication Medications: Active Medications Generic Name Dose Route Start Last Admin Trade Name Freq PRN Reason Stop Dose Admin Acetaminophen 650 mg 10/27/20 17:00 10/27/20 23:57 Acetaminophen 325 Mg Tab PO 650 mg Q4H PRN Administration Headache/Fever/Mild Pain (1-3) Epoetin Jhon-epbx 10,000 unit 10/30/20 12:00 10/30/20 12:29 Epoetin John-Epbx (Esrd) 10,000 Unit/Ml Vial IVP 10,000 unit MoWeFr ALANNA Administration Cefepime HCl 0.5 gm/ 100 mls @ 200 mls/hr 10/28/20 16:00 10/29/20 16:29 Miscellaneous Medication 1 IVPB 100 mls each/ Sodium Chloride 1600 ALANNA Administration Meropenem 500 mg/ Sodium 100 mls @ 200 mls/hr 10/30/20 09:00 10/30/20 08:16 Chloride IVPB 100 mls DAILY ALANNA Administration Morphine Sulfate 2 mg 10/28/20 08:35 10/30/20 08:22 Morphine 2 Mg/Ml Vial SLOW IVP 2 mg Q4H PRN Administration Moderate to Severe Pain (6-10) Ondansetron HCl 4 mg 10/27/20 17:00 10/30/20 08:31 Ondansetron Pf 4 Mg/2 Ml Vial IVP 4 mg Q6H PRN Administration Nausea/Vomiting Pantoprazole Sodium 40 mg 10/28/20 09:00 10/30/20 08:16 Pantoprazole 40 Mg Tab PO 40 mg DAILY ALANNA Administration Saccharomyces Boulardii 250 mg 10/28/20 09:00 10/30/20 08:16 Saccharomyces Boulardii 250 Mg Cap PO 250 mg DAILY ALANNA Administration Sevelamer Carbonate 2,400 mg 10/27/20 17:00 10/30/20 12:30 Sevelamer Carbonate 800 Mg Tab PO Not Given TID-WM ALANNA Simethicone 80 mg 10/29/20 09:00 10/30/20 12:30 Simethicone Chewable 80 Mg Tab PO 80 mg PCHS ALANNA Administration Sodium Chloride 10 ml 10/28/20 21:00 10/30/20 08:16 Flush - Normal Saline 10 Ml Syringe IVF 10 ml Q12HR ALANNA Administration Sodium Chloride 10 ml 10/28/20 09:15 10/28/20 22:47 Flush - Normal Saline 10 Ml Syringe IVF 10 ml PRN PRN Administration Saline Flush - Exam General Appearance: NAD Eye: PERRL ENT: normocephalic atraumatic Neck: supple Heart: RRR Respiratory: CTAB Gastrointestinal: distended Extremities: no cyanosis, no clubbing Skin: normal turgor Neurological: cranial nerve grossly intact Musculoskeletal: normal tone Psychiatric: normal affect, normal behavior, A&O x 3 Hosp A/P - Plan This is an unfortunate 25 years old -[place] gentleman who has multiple comorbidities including ESRD on dialysis, history of renal transplant, 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 Patient was found hypotensive with systolic blood pressures in the 60s. He was given volume resuscitation, and subsequently started on vasopressor support with Levophed, and admitted to hospitalist service. Generalized Abdominal Pain --rpt CT reviewed. s/p rpt paracentesis, 3.2 L hemorrhagic ascitic fluid removed --Continue IV antibiotic as per ID, for possible SBP --pt is tolerating diet. Follow cultures Acute metabolic encephalopathy - likely multifactorial, hypoglycemia --He was given D50, responded appropriately. Avoid sedative medications. Follow clinically Hypotension --resolved. was on vasopressor support Syncope --likely d/t hypotensive episode --Echo reviewed ESRD on HD --cont dialysis as per nephrology Anemia of chronic disease --no role for transfusion at this time Hx of endocarditis
[2020-10-30] MEDS: Cefepime 0.5 GM, Admixture Fee 1 EACH in Sodium Chloride 0.9% 100 ML IVPB SCH (18:08)
[2020-10-31] MEDS: Morphine 2 MG/ML VIAL SLOW IVP PRN ×5 (01:39→20:20)
[2020-10-31] MEDS ORDERED: diphenhydrAMINE 25 MG CAP PO SCH (02:30)
[2020-10-31 04:42] LABS: Prothrombin Time 22.8 sec (12.0-14.7)
[2020-10-31 05:00] LABS: ALT (SGPT) 7 U/L (8-55); AST (SGOT) 19 U/L (5-34); Alkaline Phosphatase 226 U/L (40-110); Anion Gap 21 mmol/L (10-20); BUN (Urea Nitrogen) 30 mg/dL (8.9-20.6); Bilirubin, Total 1.2 mg/dL (0.2-1.2); Calc. Creatinine Clearance 26 mL/min (70-130); Calcium 8.3 mg/dL (7.8-10.44); Carbon Dioxide 25 mmol/L (22-29); Chloride 94 mmol/L (98-107); Glucose 69 mg/dL (70-105); Potassium 5.1 mmol/L (3.5-5.1); Sodium 135 mmol/L (136-145)
[2020-10-31 05:30] LABS: Band 9 % (5-11); Eosinophils 3 % (0-10); Hemoglobin 7.9 g/dL (14.0-18.0); Lymphocytes 27 % (21-51); MDiff Complete? YES; Mean Corpuscular HGB CONC 31.2 g/dL (32.0-36.0); Mean Corpuscular Hemoglobin 29.2 pg (27.0-31.0); Mean Corpuscular Volume 93.6 fL (78.0-98.0); Monocytes 8 % (0-10); Neutrophil 53 % (42-75); Platelet Count 93 thou/uL (130-400); Platelet Morphology Comment Appears Decreased; White Blood Cell (WBC) Count 4.5 thou/uL (4.8-10.8)
[2020-10-31] MEDS: Sevelamer Carbonate 800 MG TAB PO SCH ×3 (08:40→16:06)
[2020-10-31] MEDS: Simethicone Chewable 80 MG TAB PO SCH ×4 (08:41→20:20)
[2020-10-31] MEDS: Saccharomyces boulardii 250 MG CAP PO SCH (08:41)
[2020-10-31] MEDS: Meropenem 500 MG in Sodium Chloride 0.9% 100 ML IVPB SCH (08:41)
[2020-10-31] MEDS: diphenhydrAMINE 50 MG/ML VIAL IVP PRN ×2 (10:06→16:07)
[2020-10-31] MEDS: Cefepime 0.5 GM, Admixture Fee 1 EACH in Sodium Chloride 0.9% 100 ML IVPB SCH (16:05)
--- NOTE | 2020-10-31 16:41 | PDOC.HOSPP ---
- Subjective Subjective: Patient was seen examined at bedside. Patient still complained of some mid abdominal pain. However he is tolerating regular diet, and has been having regular bowel movement. His culture so far no growth. I have discussed case GI service, apparently he is a well known patient, nothing to add. - Objective Vital Signs & Weight: Vital Signs (12 hours) Temp Pulse Resp BP Pulse Ox 10/31/20 15:12 99.3 F 93 23 H 136/95 H 95 10/31/20 12:07 99.7 F H 98 18 151/105 H 97 10/31/20 08:05 96 10/31/20 07:35 100.2 F H 103 H 20 145/99 H 96 Weight Weight 168 lb 13.985 oz Most Recent Monitor Data Heart Rate from ECG 100 NIBP 142/98 NIBP BP-Mean 112 Respiration from ECG 28 SpO2 98 I&O: 10/30/20 10/31/20 11/01/20 06:59 06:59 06:59 Intake Total 1880 3200 Output Total 0 0 Balance 1880 3200 Result Diagrams: 10/31/20 04:17 10/31/20 04:17 Additional Labs: Accuchecks 10/31/20 10/31/20 10/30/20 04:32 01:27 20:22 POC Glucose 81 51 L* 79 10/30/20 13:14 POC Glucose 26 L* Radiology Reviewed by me: Yes EKG Reviewed by me: Yes Hospitalist ROS - Medication Medications: Active Medications Generic Name Dose Route Start Last Admin Trade Name Freq PRN Reason Stop Dose Admin Acetaminophen 650 mg 10/27/20 17:00 10/27/20 23:57 Acetaminophen 325 Mg Tab PO 650 mg Q4H PRN Administration Headache/Fever/Mild Pain (1-3) Diphenhydramine HCl 25 mg 10/31/20 08:32 10/31/20 16:07 Diphenhydramine 50 Mg/Ml Vial IVP 25 mg Q6H PRN Administration Itching Epoetin John-epbx 10,000 unit 10/30/20 12:00 10/30/20 12:29 Epoetin John-Epbx (Esrd) 10,000 Unit/Ml Vial IVP 10,000 unit MoWeFr ALANNA Administration Cefepime HCl 0.5 gm/ 100 mls @ 200 mls/hr 10/28/20 16:00 10/31/20 16:05 Miscellaneous Medication 1 IVPB 100 mls each/ Sodium Chloride 1600 ALANNA Administration Meropenem 500 mg/ Sodium 100 mls @ 200 mls/hr 10/30/20 09:00 10/31/20 08:41 Chloride IVPB 100 mls DAILY ALANNA Administration Morphine Sulfate 2 mg 10/28/20 08:35 10/31/20 16:08 Morphine 2 Mg/Ml Vial SLOW IVP 2 mg Q4H PRN Administration Moderate to Severe Pain (6-10) Ondansetron HCl 4 mg 10/27/20 17:00 10/30/20 08:31 Ondansetron Pf 4 Mg/2 Ml Vial IVP 4 mg Q6H PRN Administration Nausea/Vomiting Pantoprazole Sodium 40 mg 10/28/20 09:00 10/31/20 08:41 Pantoprazole 40 Mg Tab PO 40 mg DAILY ALANNA Administration Saccharomyces Boulardii 250 mg 10/28/20 09:00 10/31/20 08:41 Saccharomyces Boulardii 250 Mg Cap PO 250 mg DAILY ALANNA Administration Sevelamer Carbonate 2,400 mg 10/27/20 17:00 10/31/20 16:06 Sevelamer Carbonate 800 Mg Tab PO Not Given TID-WM ALANNA Simethicone 80 mg 10/29/20 09:00 10/31/20 12:16 Simethicone Chewable 80 Mg Tab PO 80 mg PCHS ALANNA Administration Sodium Chloride 10 ml 10/28/20 21:00 10/31/20 08:41 Flush - Normal Saline 10 Ml Syringe IVF 10 ml Q12HR ALANNA Administration Sodium Chloride 10 ml 10/28/20 09:15 10/28/20 22:47 Flush - Normal Saline 10 Ml Syringe IVF 10 ml PRN PRN Administration Saline Flush - Exam General Appearance: NAD Eye: PERRL ENT: normocephalic atraumatic Neck: supple Heart: RRR, no murmur Respiratory: CTAB Gastrointestinal: soft, normal bowel sounds, distended Skin: normal turgor Neurological: cranial nerve grossly intact Musculoskeletal: normal tone Psychiatric: normal affect, normal behavior, A&O x 3 Hosp A/P - Plan This is an unfortunate 25 years old -Stateless gentleman who has multiple comorbidities including ESRD on dialysis, history of renal transplant, 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 Patient was found hypotensive with systolic blood pressures in the 60s. He was given volume resuscitation, and s ubsequently started on vasopressor support with Levophed, and admitted to hospitalist service. Generalized Abdominal Pain --rpt CT reviewed. s/p rpt paracentesis, 3.2 L hemorrhagic ascitic fluid removed --Continue IV antibiotic as per ID, for possible SBP --pt is tolerating diet, normal bowel movement. Follow cultures Acute metabolic encephalopathy - likely multifactorial, hypoglycemia. Resolved. --He was given D50, responded appropriately. Avoid sedative medications. Follow clinically --Resolved. Hypotension --resolved. was on vasopressor support Syncope --likely d/t hypotensive episode --Echo reviewed ESRD on HD --cont dialysis as per nephrology Anemia of chronic disease --no role for transfusion at this time Hx of endocarditis
--- NOTE | 2020-10-31 17:27 | PRG ---
DATE OF SERVICE: 10/31/2020 SUBJECTIVE: Patient was seen and examined at bedside and overnight events noted. Patient denies any shortness of breath or chest pain or palpitation. No history of nausea or vomiting or diarrhea or fever or chills or cramps. OBJECTIVE: GENERAL: This is a well-built male, in no apparent distress. VITAL SIGNS: Temperature 99.3. Heart Rate 93. Respiratory rate 23. Blood Pressure 136/95. HEENT: Atraumatic, normocephalic. Oral mucosa is moist. NECK: Supple. CARDIOVASCULAR: S1, S2 heard. Rate and rhythm regular. RESPIRATORY: Clear to auscultation. GASTROINTESTINAL: Abdomen is soft. MUSCULOSKELETAL: No tenderness. No edema. DERMATOLOGIC: No skin rash. NEUROLOGIC: Alert and awake and oriented x3. No focal neurologic deficits. Moving all the extremities. PSYCHIATRIC: Mood and affect normal. LABORATORY DATA: Potassium 5.1, BUN is 30, and creatinine is 5.1. ASSESSMENT AND PLAN: 1. End-stage renal disease, on hemodialysis. Continue dialysis as tolerated. 2. Edema, controlled. 3. Hypertension. 4. Hyperkalemia, limit potassium intake. 5. Hypoalbuminemia. 6. Anemia of chronic disease. We will continue EFFIE with dialysis. Continue dialysis as tolerated. Limit potassium intake. Job ID: [id number]
[2020-10-31] MEDS ORDERED: Morphine 4 MG/ML VIAL SLOW IVP SCH (19:15)
[2020-11-01] MEDS: diphenhydrAMINE 50 MG/ML VIAL IVP PRN ×3 (00:30→23:03)
[2020-11-01] MEDS: Morphine 2 MG/ML VIAL SLOW IVP PRN ×4 (00:30→23:03)
--- NOTE | 2020-11-01 12:09 | PRG ---
DATE OF SERVICE: 11/01/2020 SUBJECTIVE: Patient was seen and examined at bedside and overnight events noted. Patient denies any shortness of breath or chest pain or palpitation. No history of nausea or vomiting or diarrhea or fever or chills or cramps. OBJECTIVE: GENERAL: This is a well-built male, in no apparent distress. VITAL SIGNS: Temperature 98.1. Heart Rate 88. Respiratory rate 18. Blood pressure 153/107. HEENT: Atraumatic, normocephalic. Oral mucosa is moist. NECK: Supple. CARDIOVASCULAR: S1, S2 heard. Rate and rhythm regular. RESPIRATORY: Clear to auscultation. GASTROINTESTINAL: Abdomen is soft. MUSCULOSKELETAL: No tenderness. No edema. DERMATOLOGIC: No skin rash. NEUROLOGIC: Alert and awake and oriented x3. No focal neurologic deficits. Moving all the extremities. PSYCHIATRIC: Mood and affect normal. LABORATORY DATA: Potassium 5.1, BUN is 30, and creatinine is 5.1. ASSESSMENT AND PLAN: 1. End-stage renal disease, on hemodialysis. Continue dialysis Friday, Friday, and Friday. The patient is seen during dialysis. 2. Hypotension. The patient was advised to be careful with his hypertensive medications. The patient used to take a lot of blood pressure medicine, but seems like he may not need that much at least temporarily. The patient was advised to follow the recommendations on discharge and adjust the medicines as needed with the outpatient dialysis clinic. 3. Edema. 4. Hyperkalemia, better. 5. Hypoalbuminemia. 6. Anemia of chronic disease. Cautious use of antihypertensive agents and continue dialysis as tolerated. The patient is seen during dialysis, tolerating well. Advised limit fluid intake and potassium intake. Job ID: [id number]
[2020-11-01] MEDS: Sevelamer Carbonate 800 MG TAB PO SCH ×3 (12:27→19:29)
[2020-11-01] MEDS: Simethicone Chewable 80 MG TAB PO SCH ×5 (12:28→23:02)
[2020-11-01] MEDS: Saccharomyces boulardii 250 MG CAP PO SCH (12:28)
[2020-11-01] MEDS: EPOETIN ALFA-EPBX (ESRD) 10,000 UNIT/ML VIAL IVP SCH (12:42)
[2020-11-01] MEDS: Meropenem 500 MG in Sodium Chloride 0.9% 100 ML IVPB SCH (12:42)
--- NOTE | 2020-11-01 17:26 | PDOC.HOSPP ---
- Subjective Subjective: abd pain is better, complaints of itching. no fever - Objective Vital Signs & Weight: Vital Signs (12 hours) Temp Pulse Resp BP Pulse Ox 11/01/20 12:19 97.5 F L 84 16 153/107 H 98 11/01/20 09:50 100 11/01/20 07:32 98.1 F 88 17 153/107 H 100 Weight Weight 164 lb 0.383 oz Most Recent Monitor Data Heart Rate from ECG 100 NIBP 142/98 NIBP BP-Mean 112 Respiration from ECG 28 SpO2 98 I&O: 10/31/20 11/01/20 11/02/20 06:59 06:59 06:59 Intake Total 1880 5258 Output Total 0 0 Balance 1880 5258 Result Diagrams: 10/31/20 04:17 10/31/20 04:17 Hospitalist ROS - Medication Medications: Active Medications Generic Name Dose Route Start Last Admin Trade Name Freq PRN Reason Stop Dose Admin Acetaminophen 650 mg 10/27/20 17:00 10/27/20 23:57 Acetaminophen 325 Mg Tab PO 650 mg Q4H PRN Administration Headache/Fever/Mild Pain (1-3) Diphenhydramine HCl 25 mg 10/31/20 08:32 11/01/20 06:35 Diphenhydramine 50 Mg/Ml Vial IVP 25 mg Q6H PRN Administration Itching Epoetin John-epbx 10,000 unit 10/30/20 12:00 11/01/20 12:42 Epoetin John-Epbx (Esrd) 10,000 Unit/Ml Vial IVP 10,000 unit MoWeFr ALANNA Administration Cefepime HCl 0.5 gm/ 100 mls @ 200 mls/hr 10/28/20 16:00 10/31/20 16:05 Miscellaneous Medication 1 IVPB 100 mls each/ Sodium Chloride 1600 ALANNA Administration Meropenem 500 mg/ Sodium 100 mls @ 200 mls/hr 10/30/20 09:00 11/01/20 12:42 Chloride IVPB 100 mls DAILY ALANNA Administration Morphine Sulfate 2 mg 10/28/20 08:35 11/01/20 10:09 Morphine 2 Mg/Ml Vial SLOW IVP 2 mg Q4H PRN Administration Moderate to Severe Pain (6-10) Ondansetron HCl 4 mg 10/27/20 17:00 10/30/20 08:31 Ondansetron Pf 4 Mg/2 Ml Vial IVP 4 mg Q6H PRN Administration Nausea/Vomiting Pantoprazole Sodium 40 mg 10/28/20 09:00 11/01/20 12:29 Pantoprazole 40 Mg Tab PO 40 mg DAILY ALANNA Administration Saccharomyces Boulardii 250 mg 10/28/20 09:00 11/01/20 12:28 Saccharomyces Boulardii 250 Mg Cap PO 250 mg DAILY ALANNA Administration Sevelamer Carbonate 2,400 mg 10/27/20 17:00 11/01/20 12:28 Sevelamer Carbonate 800 Mg Tab PO 2,400 mg TID-WM ALANNA Administration Simethicone 80 mg 10/29/20 09:00 11/01/20 12:59 Simethicone Chewable 80 Mg Tab PO 80 mg PCHS ALANNA Administration Sodium Chloride 10 ml 10/28/20 21:00 11/01/20 10:14 Flush - Normal Saline 10 Ml Syringe IVF 10 ml Q12HR ALANNA Administration Sodium Chloride 10 ml 10/28/20 09:15 10/28/20 22:47 Flush - Normal Saline 10 Ml Syringe IVF 10 ml PRN PRN Administration Saline Flush - Exam General Appearance: NAD Eye: PERRL ENT: normocephalic atraumatic Neck: supple Heart: RRR Respiratory: CTAB Gastrointestinal: soft Skin - other findings: excoriations Neurological: cranial nerve grossly intact Musculoskeletal: normal tone, normal strength Psychiatric: normal affect, normal behavior, A&O x 3 Hosp A/P - Plan This is an unfortunate 25 years old -[place] gentleman who has multiple comorbidities including ESRD on dialysis, history of renal transplant, 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 Patient was found hypotensive with systolic blood pressures in the 60s. He was given volume resuscitation, and subsequently started on vasopressor support with Levophed, and admitted to hospitalist service. Generalized Abdominal Pain --rpt CT reviewed. s/p rpt paracentesis, 3.2 L hemorrhagic ascitic fluid removed --Continue IV antibiotic as per ID, for possible SBP --pt is tolerating diet, normal bowel movement. Follow cultures - so far no growth Acute metabolic encephalopathy - likely multifactorial, hypoglycemia. Resolved. --He was given D50, responded appropriately. Avoid sedative medications. Follow clinically --Resolved. Hypotension --resolved. was on vasopressor support Syncope --likely d/t hypotensive episode --Echo reviewed ESRD on HD --cont dialysis as per nephrology Anemia of chronic disease --no role for transfusion at this time Hx of endocarditis
[2020-11-01] MEDS: Cefepime 0.5 GM, Admixture Fee 1 EACH in Sodium Chloride 0.9% 100 ML IVPB SCH (19:29)
[2020-11-02] MEDS: Morphine 2 MG/ML VIAL SLOW IVP PRN ×6 (02:41→22:06)
[2020-11-02] MEDS: diphenhydrAMINE 50 MG/ML VIAL IVP PRN ×6 (02:43→22:05)
[2020-11-02] MEDS: Sevelamer Carbonate 800 MG TAB PO SCH ×3 (08:02→17:30)
[2020-11-02] MEDS: Saccharomyces boulardii 250 MG CAP PO SCH (08:11)
[2020-11-02] MEDS: Simethicone Chewable 80 MG TAB PO SCH ×4 (08:11→22:05)
[2020-11-02] MEDS: Ondansetron PF 4 MG/2 ML Vial IVP PRN (08:25)
[2020-11-02] MEDS: Meropenem 500 MG in Sodium Chloride 0.9% 100 ML IVPB SCH (10:13)
--- NOTE | 2020-11-02 12:00 | PRG ---
DATE OF SERVICE: 11/02/2020 SUBJECTIVE: Patient was seen and examined at bedside and overnight events noted. Patient denies any shortness of breath or chest pain or palpitation. No history of nausea or vomiting or diarrhea or fever or chills or cramps. OBJECTIVE: GENERAL: This is a well-built male, in no apparent distress. VITAL SIGNS: Temperature 99.6. Heart Rate 100. Respiratory rate 18. Blood pressure 128/91. HEENT: Atraumatic, normocephalic. Oral mucosa is moist. NECK: Supple. CARDIOVASCULAR: S1, S2 heard. Rate and rhythm regular. RESPIRATORY: Clear to auscultation. GASTROINTESTINAL: Abdomen is distended. MUSCULOSKELETAL: No tenderness. No edema. DERMATOLOGIC: No skin rash. NEUROLOGIC: Alert and awake and oriented x3. No focal neurologic deficits. Moving all the extremities. PSYCHIATRIC: Mood and affect normal. LABORATORY DATA: No labs done today. ASSESSMENT AND PLAN: 1. End-stage renal disease. Continue dialysis as tolerated. 2. Edema. 3. Hypertension. 4. History of anemia. 5. Ascites. Plan discussed with primary team, may consider a tap. The patient is accumulating fluid faster now. Consider regular tap if tolerated. We will plan for dialysis tomorrow. Recheck labs in the morning. Advised to limit potassium intake. Job ID: [id number]
[2020-11-02] MEDS ORDERED: Lidocaine 1% PF 5 ML VIAL ONE (13:51)
[2020-11-02] MEDS ORDERED: Sodium Bicarbonate 2.5 MEQ/5 ML VIAL ONE (13:51)
--- NOTE | 2020-11-02 14:20 | PDOC.HOSPP ---
- Subjective Subjective: Patient was seen examined at bedside. He complained of abdominal pain, and fluid reaccumulated again. He had 2 paracentesis done so far during this hospital stay, first time was 500 cc removed, and the second time was 3.2 L removed. He will need another one today. Fluid reaccumulate quicker - Objective Vital Signs & Weight: Vital Signs (12 hours) Temp Pulse Resp BP Pulse Ox 11/02/20 11:10 99.6 F 100 24 H 128/91 H 98 11/02/20 08:00 98.6 F 100 18 154/106 H 94 L 11/02/20 04:00 98.0 F 102 H 18 139/95 H 93 L Weight Weight 167 lb 12.348 oz Most Recent Monitor Data Heart Rate from ECG 100 NIBP 142/98 NIBP BP-Mean 112 Respiration from ECG 28 SpO2 98 I&O: 11/01/20 11/02/20 11/03/20 06:59 06:59 06:59 Intake Total 5258 960 Output Total 0 Balance 5258 960 Result Diagrams: 10/31/20 04:17 10/31/20 04:17 Hospitalist ROS - Medication Medications: Active Medications Generic Name Dose Route Start Last Admin Trade Name Freq PRN Reason Stop Dose Admin Acetaminophen 650 mg 10/27/20 17:00 10/27/20 23:57 Acetaminophen 325 Mg Tab PO 650 mg Q4H PRN Administration Headache/Fever/Mild Pain (1-3) Diphenhydramine HCl 25 mg 11/01/20 18:13 11/02/20 14:14 Diphenhydramine 50 Mg/Ml Vial IVP 25 mg Q4H PRN Administration Itching Epoetin John-epbx 10,000 unit 10/30/20 12:00 11/01/20 12:42 Epoetin John-Epbx (Esrd) 10,000 Unit/Ml Vial IVP 10,000 unit MoWeFr ALANNA Administration Cefepime HCl 0.5 gm/ 100 mls @ 200 mls/hr 10/28/20 16:00 11/01/20 19:29 Miscellaneous Medication 1 IVPB 100 mls each/ Sodium Chloride 1600 ALANNA Administration Meropenem 500 mg/ Sodium 100 mls @ 200 mls/hr 10/30/20 09:00 11/02/20 10:13 Chloride IVPB 100 mls DAILY ALANNA Administration Morphine Sulfate 2 mg 10/28/20 08:35 11/02/20 14:13 Morphine 2 Mg/Ml Vial SLOW IVP 2 mg Q4H PRN Administration Moderate to Severe Pain (6-10) Ondansetron HCl 4 mg 10/27/20 17:00 11/02/20 08:25 Ondansetron Pf 4 Mg/2 Ml Vial IVP 4 mg Q6H PRN Administration Nausea/Vomiting Pantoprazole Sodium 40 mg 10/28/20 09:00 11/02/20 08:11 Pantoprazole 40 Mg Tab PO 40 mg DAILY ALANNA Administration Saccharomyces Boulardii 250 mg 10/28/20 09:00 11/02/20 08:11 Saccharomyces Boulardii 250 Mg Cap PO 250 mg DAILY ALANNA Administration Sevelamer Carbonate 2,400 mg 10/27/20 17:00 11/02/20 11:49 Sevelamer Carbonate 800 Mg Tab PO 2,400 mg TID-WM ALANNA Administration Simethicone 80 mg 10/29/20 09:00 11/02/20 13:45 Simethicone Chewable 80 Mg Tab PO 80 mg PCHS ALANNA Administration Sodium Chloride 10 ml 10/28/20 21:00 11/02/20 10:14 Flush - Normal Saline 10 Ml Syringe IVF 10 ml Q12HR ALANNA Administration Sodium Chloride 10 ml 10/28/20 09:15 11/02/20 14:14 Flush - Normal Saline 10 Ml Syringe IVF 10 ml PRN PRN Administration Saline Flush - Exam General Appearance: NAD Eye: PERRL ENT: normocephalic atraumatic Neck: supple Heart: RRR Gastrointestinal: soft, distended Extremities: no cyanosis Skin: normal turgor Neurological: cranial nerve grossly intact Hosp A/P - Plan This is an unfortunate 25 years old -[place] gentleman who has multiple comorbidities including ESRD on dialysis, history of renal transplant, 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 Patient was found hypotensive with systolic blood pressures in the 60s. He was given volume resuscitation, and subsequently started on vasopressor support with Levophed, and admitted to hospitalist service. Recurrent Ascites - d/t CHF/ESRD --s/p paracentesis x 2 (500ml and 3.2L), will request another one today --cultures no growth. d/w nephrology, dialyze tomorrow, and hopefully home Generalized Abdominal Pain --secondary to above. chronic issues Acute metabolic encephalopathy - likely multifactorial, hypoglycemia. Resolved. --He was given D50, responded appropriately. Avoid sedative medications. Follow clinically --Resolved. Hypotension --resolved. was on vasopressor support Syncope --likely d/t hypotensive episode --Echo reviewed ESRD on HD --cont dialysis as per nephrology Anemia of chronic disease --no role for transfusion at this time Hx of endocarditis CHF acute on chronic diastolic dysfunction
--- NOTE | 2020-11-02 15:38 | ULT ---
Sonographic guided paracentesis HISTORY: Symptomatic ascites. FINDINGS: After explaining the procedure and answering all questions, sonographic survey showed a mod erate amount of free fluid throughout the abdomen. Sterile technique, buffered local anesthesia, sonographic guidance, and a left lower quadrant approac h were used to carefully advance a 19-gauge Yueh needle and catheter into the free fluid. Catheter was left to drain a total volume of 2.3 L moderate kavon liquid. Catheter was removed with m inimal fluid remaining. Patient tolerated the procedure well and was returned in unchanged condition. IMPRESSION : Technically successful sonographic guided paracentesis. 2.3 L.
[2020-11-02] MEDS: Cefepime 0.5 GM, Admixture Fee 1 EACH in Sodium Chloride 0.9% 100 ML IVPB SCH (17:30)
[2020-11-03] MEDS: Morphine 2 MG/ML VIAL SLOW IVP PRN ×4 (03:45→20:55)
[2020-11-03] MEDS: diphenhydrAMINE 50 MG/ML VIAL IVP PRN ×4 (03:45→20:55)
[2020-11-03 05:13] LABS: Anion Gap 19 mmol/L (10-20); BUN (Urea Nitrogen) 40 mg/dL (8.9-20.6); Calc. Creatinine Clearance 19 mL/min (70-130); Calcium 8.1 mg/dL (7.8-10.44); Carbon Dioxide 27 mmol/L (22-29); Chloride 95 mmol/L (98-107); Glucose 96 mg/dL (70-105); Potassium 5.2 mmol/L (3.5-5.1); Sodium 136 mmol/L (136-145)
--- NOTE | 2020-11-03 07:21 | PRG ---
DATE OF SERVICE: 11/02/2020 SUBJECTIVE: Mr. Martínez is in the tele area. He looks better than when I initially saw him. Pain is not as intense and the repeat abdomen and pelvis CT with contrast was done. It showed a small right pleural effusion, bibasilar lung opacities, and large volume ascites, increased compared with October 27. Liver, spleen, and pancreas appear unremarkable. Gallbladder is contracted. Kidneys atrophic. There is opacification of the proximal and mid small bowel loops, mild distention and the fluid analysis is discussed below. OBJECTIVE: VITAL SIGNS: He had a temperature of 100.2 two days ago, but has been afebrile since. Blood pressure 120/90, heart rate 100, respiratory rate 18 to 24, O2 saturation 98% on 3 L, kind of ranges from 92% to 100%. GENERAL: Appears chronically ill. He is more alert, not as much as in distress as he was on admission. HEENT: Ocular movements conjugate, somewhat pale conjunctivae. LUNGS: With faint basilar crackles. No wheezing. HEART: S1 and S2. Regular rate with a soft aortic murmur. ABDOMEN: Moderately distended. There is still quite a bit of tenderness in the upper segments of his abdominal cavity with some rebound tenderness. There is fluid wave perceptible. : No bladder distention. EXTREMITIES: Able to move extremities with little edema. LABORATORY DATA: White cell count 4.5, hemoglobin 7.9, platelets 93,000, 53% neutrophils, 9% bands. Sodium 135, creatinine 5.19, carbon dioxide 25, transaminases normal, alkaline phosphatase 226. Albumin 3.0. The ascitic fluid from October 30 with 5700 rbc's, 700 wbc's with about 30% neutrophils and 20% lymphocytes, 46% other types of cells including histiocytic, mesothelial, endothelial. LDH 261. Albumin in the plasma was 3, so about 70% ratio here. Cultures are negative from the ascitic fluid thus far. Blood cultures, no growth for 5 days. He is receiving cefepime and meropenem. I have to stop the cefepime because not supposed to be on both. His echocardiogram with EF 55% to 60%, concentric with left ventricular hypertrophy which is severe, impaired relaxation, bioprosthetic mitral valve. 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 This had to be retreated with apparent resolution of the infection. No evidence of recrudescence at this time and now he has this other problem, which is his abdominal pain, which initially I felt was restricted to the right upper quadrant, but seems to be in all quadrants really from time to time. The clinical and laboratory findings are consistent with hemorrhagic ascites, he may have SBP in addition to that. Patients with hemorrhagic ascites have a much higher risk of spontaneous bacterial peritonitis than your average patient with ascites, so I think we should continue the antimicrobials, but discontinue cefepime. The other thing would be the possibility that the blood is causing irritation of the peritoneal membranes and causing peritonitis that is aseptic. Difficult situation to handle, he must have very dilated veins in his peritoneal membranes with bleeding intermittently. It is possible that the paracentesis may perforate some of those and cause bleeding. Job ID: [id number] MTDD
[2020-11-03] MEDS: Sevelamer Carbonate 800 MG TAB PO SCH ×4 (07:54→19:09)
[2020-11-03] MEDS: Simethicone Chewable 80 MG TAB PO SCH ×4 (07:56→20:55)
[2020-11-03] MEDS ORDERED: hydrALAZINE 20 MG/ML VIAL SLOW IVP PRN (12:13)
[2020-11-03] MEDS ORDERED: cloNIDine 0.3 MG TAB PO SCH (12:45)
[2020-11-03] MEDS: cloNIDine 0.3 MG TAB PO SCH ×2 (15:40→21:05)
[2020-11-03] MEDS: hydrALAZINE 25 MG TAB PO SCH ×2 (15:42→21:05)
[2020-11-03] MEDS: Meropenem 500 MG in Sodium Chloride 0.9% 100 ML IVPB SCH (15:43)
[2020-11-03] MEDS: Saccharomyces boulardii 250 MG CAP PO SCH (15:55)
--- NOTE | 2020-11-03 16:03 | PDOC.HOSPP ---
- Subjective Subjective: His BP was >200/100 range today, s/p third paracentesis dont this admission. abd is somewhat better, tolerating diet. nothing grow from peritoneal fluid cultures. - Objective Vital Signs & Weight: Vital Signs (12 hours) Temp Pulse Resp BP BP Pulse Ox 11/03/20 15:42 104 H 137/105 H 11/03/20 15:40 137/105 H 11/03/20 12:53 196/99 H 11/03/20 07:41 98.8 F 108 H 18 138/98 H 99 11/03/20 07:30 99 Weight Weight 164 lb Most Recent Monitor Data Heart Rate from ECG 100 NIBP 142/98 NIBP BP-Mean 112 Respiration from ECG 28 SpO2 98 I&O: 11/02/20 11/03/20 11/04/20 06:59 06:59 06:59 Intake Total 960 2190 Output Total 2300 Balance 960 -110 Result Diagrams: 10/31/20 04:17 11/03/20 04:22 Radiology Reviewed by me: Yes EKG Reviewed by me: Yes Hospitalist ROS - Medication Medications: Active Medications Generic Name Dose Route Start Last Admin Trade Name Freq PRN Reason Stop Dose Admin Acetaminophen 650 mg 10/27/20 17:00 10/27/20 23:57 Acetaminophen 325 Mg Tab PO 650 mg Q4H PRN Administration Headache/Fever/Mild Pain (1-3) Clonidine 0.3 mg 11/03/20 15:00 11/03/20 15:40 Clonidine 0.3 Mg Tab PO 0.3 mg TID ALANNA Administration Diphenhydramine HCl 25 mg 11/01/20 18:13 11/03/20 15:47 Diphenhydramine 50 Mg/Ml Vial IVP 25 mg Q4H PRN Administration Itching Epoetin John-epbx 10,000 unit 10/30/20 12:00 11/01/20 12:42 Epoetin John-Epbx (Esrd) 10,000 Unit/Ml Vial IVP 10,000 unit MoWeFr ALANNA Administration Hydralazine HCl 100 mg 11/03/20 15:00 11/03/20 15:42 Hydralazine 25 Mg Tab PO 100 mg TID ALANNA Administration Cefepime HCl 0.5 gm/ 100 mls @ 200 mls/hr 10/28/20 16:00 11/02/20 17:30 Miscellaneous Medication 1 IVPB 100 mls each/ Sodium Chloride 1600 ALANNA Administration Meropenem 500 mg/ Sodium 100 mls @ 200 mls/hr 10/30/20 09:00 11/03/20 15:43 Chloride IVPB 100 mls DAILY ALANNA Administration Morphine Sulfate 2 mg 10/28/20 08:35 11/03/20 15:48 Morphine 2 Mg/Ml Vial SLOW IVP 2 mg Q4H PRN Administration Moderate to Severe Pain (6-10) Ondansetron HCl 4 mg 10/27/20 17:00 11/02/20 08:25 Ondansetron Pf 4 Mg/2 Ml Vial IVP 4 mg Q6H PRN Administration Nausea/Vomiting Pantoprazole Sodium 40 mg 10/28/20 09:00 11/03/20 15:39 Pantoprazole 40 Mg Tab PO 40 mg DAILY ALANNA Administration Saccharomyces Boulardii 250 mg 10/28/20 09:00 11/03/20 15:55 Saccharomyces Boulardii 250 Mg Cap PO 250 mg DAILY ALANNA Administration Sevelamer Carbonate 2,400 mg 10/27/20 17:00 11/03/20 12:00 Sevelamer Carbonate 800 Mg Tab PO Not Given TID-WM ALANNA Simethicone 80 mg 10/29/20 09:00 11/03/20 15:43 Simethicone Chewable 80 Mg Tab PO 80 mg PCHS ALANNA Administration Sodium Chloride 10 ml 10/28/20 21:00 11/03/20 07:56 Flush - Normal Saline 10 Ml Syringe IVF 10 ml Q12HR ALANNA Administration Sodium Chloride 10 ml 10/28/20 09:15 11/03/20 15:44 Flush - Normal Saline 10 Ml Syringe IVF 10 ml PRN PRN Administration Saline Flush - Exam General Appearance: NAD Eye: PERRL ENT: normocephalic atraumatic Neck: supple Heart: RRR Respiratory: CTAB Gastrointestinal: soft, non-tender Extremities: no cyanosis Neurological: cranial nerve grossly intact Musculoskeletal: normal tone, normal strength, no muscle wasting Hosp A/P - Plan This is an unfortunate 25 years old -[place] gentleman who has multiple comorbidities including ESRD on dialysis, history of renal transplant, 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 Patient was found hypotensive with systolic blood pressures in the 60s. He was given volume resuscitation, and subsequently started on vasopressor support with Levophed, and admitted to hospitalist service. Generalized Abdominal Pain --secondary to above. chronic issue. --cultures no growth, pt is on IV abx of possible SBP. ID is following Recurrent Ascites - d/t CHF/ESRD --s/p paracentesis x 3 this admisson(500ml, 3.2L, and 2.3L), fluid re-accumulated quite quickly. --abd pain is somewhat better. Cultures no growth Accelerated HTN - BP >220/100 --IV hydralazine with parameters, resume home meds (which was on hold as he was hypotensive on arrival) Acute metabolic encephalopathy - likely multifactorial, hypoglycemia. Resolved. --He was given D50, responded appropriately. Avoid sedative medications. Follow clinically --Resolved. Hypotension --resolved. was on vasopressor support on admisison Syncope --likely d/t hypotensive episode --Echo reviewed ESRD on HD --cont dialysis as per nephrology Anemia of chronic disease --no role for transfusion at this time Hx of endocarditis CHF acute on chronic diastolic dysfunction
[2020-11-03] MEDS: EPOETIN ALFA-EPBX (ESRD) 10,000 UNIT/ML VIAL IVP SCH (16:46)
--- NOTE | 2020-11-03 17:59 | PRG ---
DATE OF SERVICE: 11/03/2020 SUBJECTIVE: Patient was seen and examined at bedside and overnight events noted. Patient denies any shortness of breath or chest pain or palpitation. No history of nausea or vomiting or diarrhea or fever or chills or cramps. OBJECTIVE: GENERAL: This is a well-built male, in no apparent distress. VITAL SIGNS: Temperature 98. Heart Rate 108. Respiratory rate 18. Blood pressure 138/98. HEENT: Atraumatic, normocephalic. Oral mucosa is moist. NECK: Supple. CARDIOVASCULAR: S1, S2 heard. Rate and rhythm regular. RESPIRATORY: Clear to auscultation. GASTROINTESTINAL: Abdomen is soft. MUSCULOSKELETAL: No tenderness. No edema. DERMATOLOGIC: No skin rash. NEUROLOGIC: Alert and awake and oriented x3. No focal neurologic deficits. Moving all the extremities. PSYCHIATRIC: Mood and affect normal. LABORATORY DATA: Potassium 5.2, BUN is 40, and creatinine is 6.5. ASSESSMENT AND PLAN: 1. End-stage renal disease, continue on dialysis as tolerated. 2. Edema, controlled. 3. Hypertension. 4. Anemia. 5. Ascites. Continue dialysis Friday, Friday, Friday as tolerated. Job ID: [id number]
[2020-11-03] MEDS: Cefepime 0.5 GM, Admixture Fee 1 EACH in Sodium Chloride 0.9% 100 ML IVPB SCH (19:07)
[2020-11-03] MEDS: Amitriptyline HCl 100 MG TAB PO SCH (20:54)
[2020-11-03] MEDS: Labetalol 100 MG TAB PO SCH (21:05)
[2020-11-03] MEDS: NIFEdipine XL 90 MG TAB PO SCH (21:06)
[2020-11-04] MEDS: Morphine 2 MG/ML VIAL SLOW IVP PRN ×6 (01:05→21:59)
[2020-11-04] MEDS: diphenhydrAMINE 50 MG/ML VIAL IVP PRN ×6 (01:05→21:59)
[2020-11-04] MEDS: Saccharomyces boulardii 250 MG CAP PO SCH (09:40)
[2020-11-04] MEDS: Simethicone Chewable 80 MG TAB PO SCH ×4 (09:40→21:01)
[2020-11-04] MEDS: cloNIDine 0.3 MG TAB PO SCH ×3 (09:41→21:01)
[2020-11-04] MEDS: hydrALAZINE 25 MG TAB PO SCH ×3 (09:41→21:01)
[2020-11-04] MEDS: NIFEdipine XL 90 MG TAB PO SCH ×2 (09:41→21:02)
[2020-11-04] MEDS: Labetalol 100 MG TAB PO SCH ×2 (09:41→21:01)
[2020-11-04] MEDS: Sevelamer Carbonate 800 MG TAB PO SCH ×3 (09:41→16:53)
[2020-11-04] MEDS: Meropenem 500 MG in Sodium Chloride 0.9% 100 ML IVPB SCH (09:44)
--- NOTE | 2020-11-04 13:01 | PDOC.HOSPP ---
- Subjective Encounter Date: 11/04/20 Encounter Time: 09:50 Subjective: Patient is resting. He is not communicating much. Talk to the nurse. Right arm AV fistula. - Objective Vital Signs & Weight: Vital Signs (12 hours) Temp Pulse Resp BP Pulse Ox 11/04/20 11:41 99.1 F 102 H 18 121/89 97 11/04/20 07:42 98.8 F 102 H 18 129/89 95 11/04/20 04:00 100.7 F H 101 H 20 128/83 95 11/04/20 02:43 99 Weight Weight 158 lb 11.725 oz Most Recent Monitor Data Heart Rate from ECG 100 NIBP 142/98 NIBP BP-Mean 112 Respiration from ECG 28 SpO2 98 I&O: 11/03/20 11/04/20 11/05/20 06:59 06:59 06:59 Intake Total 2190 1860 Output Total 2300 3500 Balance -110 -1640 Result Diagrams: 10/31/20 04:17 11/03/20 04:22 Hospitalist ROS - Medication Medications: Active Medications Generic Name Dose Route Start Last Admin Trade Name Freq PRN Reason Stop Dose Admin Acetaminophen 650 mg 10/27/20 17:00 10/27/20 23:57 Acetaminophen 325 Mg Tab PO 650 mg Q4H PRN Administration Headache/Fever/Mild Pain (1-3) Amitriptyline HCl 100 mg 11/03/20 21:00 11/03/20 20:54 Amitriptyline Hcl 100 Mg Tab PO 100 mg QPM ALANNA Administration Clonidine 0.3 mg 11/03/20 15:00 11/04/20 09:41 Clonidine 0.3 Mg Tab PO Not Given TID ALANNA Diphenhydramine HCl 25 mg 11/01/20 18:13 11/04/20 05:22 Diphenhydramine 50 Mg/Ml Vial IVP 25 mg Q4H PRN Administration Itching Epoetin John-epbx 10,000 unit 10/30/20 12:00 11/03/20 16:46 Epoetin John-Epbx (Esrd) 10,000 Unit/Ml Vial IVP 10,000 unit MoWeFr ALANNA Administration Hydralazine HCl 100 mg 11/03/20 15:00 11/04/20 09:41 Hydralazine 25 Mg Tab PO Not Given TID ALANNA Cefepime HCl 0.5 gm/ 100 mls @ 200 mls/hr 10/28/20 16:00 11/03/20 19:07 Miscellaneous Medication 1 IVPB 100 mls each/ Sodium Chloride 1600 ALANNA Administration Meropenem 500 mg/ Sodium 100 mls @ 200 mls/hr 10/30/20 09:00 11/04/20 09:44 Chloride IVPB 100 mls DAILY ALANNA Administration Labetalol HCl 600 mg 11/03/20 21:00 11/04/20 09:41 Labetalol 100 Mg Tab PO Not Given BID ALANNA Morphine Sulfate 2 mg 10/28/20 08:35 11/04/20 05:22 Morphine 2 Mg/Ml Vial SLOW IVP 2 mg Q4H PRN Administration Moderate to Severe Pain (6-10) Nifedipine 90 mg 11/03/20 21:00 11/04/20 09:41 Nifedipine Xl 90 Mg Tab PO Not Given BID ALANNA Ondansetron HCl 4 mg 10/27/20 17:00 11/02/20 08:25 Ondansetron Pf 4 Mg/2 Ml Vial IVP 4 mg Q6H PRN Administration Nausea/Vomiting Pantoprazole Sodium 40 mg 10/28/20 09:00 11/04/20 09:40 Pantoprazole 40 Mg Tab PO 40 mg DAILY ALANNA Administration Saccharomyces Boulardii 250 mg 10/28/20 09:00 11/04/20 09:40 Saccharomyces Boulardii 250 Mg Cap PO 250 mg DAILY ALANNA Administration Sevelamer Carbonate 2,400 mg 10/27/20 17:00 11/04/20 11:45 Sevelamer Carbonate 800 Mg Tab PO 2,400 mg TID-WM ALANNA Administration Simethicone 80 mg 10/29/20 09:00 11/04/20 11:45 Simethicone Chewable 80 Mg Tab PO 80 mg PCHS ALANNA Administration Sodium Chloride 10 ml 10/28/20 21:00 11/04/20 09:42 Flush - Normal Saline 10 Ml Syringe IVF 10 ml Q12HR ALANNA Administration Sodium Chloride 10 ml 10/28/20 09:15 11/03/20 19:08 Flush - Normal Saline 10 Ml Syringe IVF 10 ml PRN PRN Administration Saline Flush - Exam General Appearance: ill appearing Eye: PERRL, anicteric sclera ENT: normocephalic atraumatic Neck: supple Heart: RRR Respiratory: CTAB, normal chest expansion Gastrointestinal: soft, normal bowel sounds Neurological: no focal deficits Psychiatric: A&O x 3 Hosp A/P - Plan 25 years old -[place] gentleman who has multiple comorbidities including ESRD on dialysis, history of renal transplant, 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 Patient was found hypotensive with systolic blood pressures in the 60s. He was given volume resuscitation, and subsequently started on vasopressor support with Levophed, and admitted to hospitalist service. Generalized Abdominal Pain --secondary to above. chronic issue. --cultures no growth, pt is on IV abx of possible SBP. ID is following Recurrent Ascites - d/t CHF/ESRD --s/p paracentesis x 3 this admisson(500ml, 3.2L, and 2.3L), fluid re-accumul ated quite quickly. --abd pain is somewhat better. Cultures no growth Accelerated HTN - BP >220/100 --IV hydralazine with parameters, resume home meds (which was on hold as he was hypotensive on arrival) Acute metabolic encephalopathy - likely multifactorial, hypoglycemia. Resolved. --He was given D50, responded appropriately. Avoid sedative medications. Follow clinically --Resolved. Hypotension --resolved. was on vasopressor support on admisison Syncope --likely d/t hypotensive episode --Echo reviewed ESRD on HD on Friday --cont dialysis as per nephrology Anemia of chronic disease --no role for transfusion at this time Hx of endocarditis CHF acute on chronic diastolic dysfunction -Stable -Echo done on October shows EF of 60% normal left ventricular size - left ventricular hypertrophy -enlarged right ventricular cavity and mild dilated left atrium
[2020-11-04] MEDS: Cefepime 0.5 GM, Admixture Fee 1 EACH in Sodium Chloride 0.9% 100 ML IVPB SCH (16:53)
--- NOTE | 2020-11-04 17:08 | PRG ---
DATE OF SERVICE: 11/04/2020 SUBJECTIVE: Patient was seen and examined at bedside and overnight events noted. Patient denies any shortness of breath or chest pain or palpitation. No history of nausea or vomiting or diarrhea or fever or chills or cramps. OBJECTIVE: GENERAL: This is a well-built male, in no apparent distress. VITAL SIGNS: Temperature 99.2. Heart Rate 101. Respiratory rate 16. Blood pressure 121/89. HEENT: Atraumatic, normocephalic. Oral mucosa is moist. NECK: Supple. CARDIOVASCULAR: S1, S2 heard. Rate and rhythm regular. RESPIRATORY: Clear to auscultation. GASTROINTESTINAL: Abdomen is soft. MUSCULOSKELETAL: No tenderness. No edema. DERMATOLOGIC: No skin rash. NEUROLOGIC: Alert and awake and oriented x3. No focal neurologic deficits. Moving all the extremities. PSYCHIATRIC: Mood and affect normal. LABORATORY DATA: No labs done today. ASSESSMENT AND PLAN: 1. End-stage renal disease. Continue dialysis Friday, Friday, and Friday. 2. Edema. 3. Hypertension. 4. Anemia of chronic disease. 5. Ascites. Continue dialysis as tolerated. Job ID: [id number]
[2020-11-04] MEDS: Amitriptyline HCl 100 MG TAB PO SCH (21:01)
[2020-11-05] MEDS: Morphine 2 MG/ML VIAL SLOW IVP PRN ×5 (02:02→21:43)
[2020-11-05] MEDS: diphenhydrAMINE 50 MG/ML VIAL IVP PRN ×5 (02:03→21:41)
[2020-11-05] MEDS: Saccharomyces boulardii 250 MG CAP PO SCH (09:30)
[2020-11-05] MEDS: Sevelamer Carbonate 800 MG TAB PO SCH ×3 (09:31→17:13)
[2020-11-05] MEDS: Labetalol 100 MG TAB PO SCH ×2 (09:31→21:49)
[2020-11-05] MEDS: NIFEdipine XL 90 MG TAB PO SCH ×3 (09:31→21:49)
[2020-11-05] MEDS: Simethicone Chewable 80 MG TAB PO SCH ×3 (09:32→21:48)
[2020-11-05] MEDS: hydrALAZINE 25 MG TAB PO SCH ×3 (09:34→21:49)
[2020-11-05] MEDS: cloNIDine 0.3 MG TAB PO SCH ×3 (09:34→21:48)
[2020-11-05] MEDS: Meropenem 500 MG in Sodium Chloride 0.9% 100 ML IVPB SCH (10:23)
[2020-11-05] MEDS: Senokot S 8.6-50 MG TAB PO PRN (12:33)
[2020-11-05] MEDS ORDERED: D5 1/2 NS w/40 mEq KCL 1,000 ML IV SCH (12:45)
--- NOTE | 2020-11-05 12:51 | PDOC.HOSPP ---
- Subjective Encounter Date: 11/05/20 Encounter Time: 08:50 Subjective: Patient sitting with breakfast. He is not able to eat much. He says he has not been eating much. No bowel movement today. - Objective Vital Signs & Weight: Vital Signs (12 hours) Temp Pulse Resp BP BP Pulse Ox 11/05/20 12:41 97.4 F L 84 18 118/84 11/05/20 09:34 100 142/106 H 11/05/20 09:31 100 142/106 H 11/05/20 08:00 98.4 F 100 18 142/106 H 93 L 11/05/20 03:36 98.8 F 98 16 140/100 H 97 Weight Weight 163 lb 9.328 oz Most Recent Monitor Data Heart Rate from ECG 100 NIBP 142/98 NIBP BP-Mean 112 Respiration from ECG 28 SpO2 98 I&O: 11/04/20 11/05/20 11/06/20 06:59 06:59 06:59 Intake Total 1860 1340 Output Total 3500 0 Balance -1640 1340 Result Diagrams: 10/31/20 04:17 11/03/20 04:22 Hospitalist ROS - Medication Medications: Active Medications Generic Name Dose Route Start Last Admin Trade Name Freq PRN Reason Stop Dose Admin Acetaminophen 650 mg 10/27/20 17:00 10/27/20 23:57 Acetaminophen 325 Mg Tab PO 650 mg Q4H PRN Administration Headache/Fever/Mild Pain (1-3) Amitriptyline HCl 100 mg 11/03/20 21:00 11/04/20 21:01 Amitriptyline Hcl 100 Mg Tab PO 100 mg QPM ALANNA Administration Clonidine 0.3 mg 11/03/20 15:00 11/05/20 09:34 Clonidine 0.3 Mg Tab PO Not Given TID ALANNA Diphenhydramine HCl 25 mg 11/01/20 18:13 11/05/20 10:21 Diphenhydramine 50 Mg/Ml Vial IVP 25 mg Q4H PRN Administration Itching Epoetin John-epbx 10,000 unit 10/30/20 12:00 11/03/20 16:46 Epoetin John-Epbx (Esrd) 10,000 Unit/Ml Vial IVP 10,000 unit MoWeFr ALANNA Administration Hydralazine HCl 100 mg 11/03/20 15:00 11/05/20 09:34 Hydralazine 25 Mg Tab PO Not Given TID ALANNA Cefepime HCl 0.5 gm/ 100 mls @ 200 mls/hr 10/28/20 16:00 11/04/20 16:53 Miscellaneous Medication 1 IVPB 100 mls each/ Sodium Chloride 1600 ALANNA Administration Meropenem 500 mg/ Sodium 100 mls @ 200 mls/hr 10/30/20 09:00 11/05/20 10:23 Chloride IVPB 100 mls DAILY ALANNA Administration Labetalol HCl 600 mg 11/03/20 21:00 11/05/20 09:31 Labetalol 100 Mg Tab PO 600 mg BID ALANNA Administration Morphine Sulfate 2 mg 10/28/20 08:35 11/05/20 10:21 Morphine 2 Mg/Ml Vial SLOW IVP 2 mg Q4H PRN Administration Moderate to Severe Pain (6-10) Nifedipine 90 mg 11/03/20 21:00 11/05/20 09:34 Nifedipine Xl 90 Mg Tab PO Not Given BID ALANNA Ondansetron HCl 4 mg 10/27/20 17:00 11/02/20 08:25 Ondansetron Pf 4 Mg/2 Ml Vial IVP 4 mg Q6H PRN Administration Nausea/Vomiting Pantoprazole Sodium 40 mg 10/28/20 09:00 11/05/20 09:32 Pantoprazole 40 Mg Tab PO 40 mg DAILY ALANNA Administration Saccharomyces Boulardii 250 mg 10/28/20 09:00 11/05/20 09:30 Saccharomyces Boulardii 250 Mg Cap PO 250 mg DAILY ALANNA Administration Senna/Docusate Sodium 2 tab 10/27/20 17:00 11/05/20 12:33 Senokot S 8.6-50 Mg Tab PO 2 tab BID PRN Administration Constipation Sevelamer Carbonate 2,400 mg 10/27/20 17:00 11/05/20 12:33 Sevelamer Carbonate 800 Mg Tab PO 2,400 mg TID-WM ALANNA Administration Simethicone 80 mg 10/29/20 09:00 11/05/20 12:33 Simethicone Chewable 80 Mg Tab PO 80 mg PCHS ALANNA Administration Sodium Chloride 10 ml 10/28/20 21:00 11/05/20 09:34 Flush - Normal Saline 10 Ml Syringe IVF 10 ml Q12HR ALANNA Administration Sodium Chloride 10 ml 10/28/20 09:15 11/05/20 10:23 Flush - Normal Saline 10 Ml Syringe IVF 10 ml PRN PRN Administration Saline Flush - Exam General Appearance: NAD, awake alert Eye: PERRL ENT: normocephalic atraumatic Neck: supple Heart: RRR, normal peripheral pulses Respiratory: CTAB, normal chest expansion Gastrointestinal: soft, normal bowel sounds Neurological: no focal deficits Psychiatric: A&O x 3 Hosp A/P - Plan 25 years old -[place] gentleman who has multiple comorbidities including ESRD on dialysis, history of renal transplant, 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 Patient was found hypotensive with systolic blood pressures in the 60s. He was given volume resuscitation, and subsequently started on vasopressor support with Levophed, and admitted to hospitalist service. Generalized, persistent abdominal Pain Possible peritonitis --secondary to above. chronic issue. --cultures no growth, pt is on IV abx of possible SBP. ID is following Recurrent Ascites - d/t CHF/ESRD --s/p paracentesis x 3 this admisson(500ml, 3.2L, and 2.3L), fluid re- accumulated quite quickly. --abd pain is somewhat better. Cultures no growth Accelerated HTN - BP >220/100 --IV hydralazine with parameters, resume home meds (which was on hold as he was hypotensive on arrival) Acute metabolic encephalopathy - likely multifactorial, hypoglycemia. Resolved. --He was given D50, responded appropriately. Avoid sedative medications. Follow clinically --Resolved. Hypotension --resolved. 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 -Echo done on October shows EF of 60% normal left ventricular size; there is no mention of any valvular abnormality specifically the mitral valve. - left ventricular hypertrophy -enlarged right ventricular cavity and mild dilated left atrium Constipation -Stool softeners. He is still on meropenem. Cultures negative thus far. Will touch with infectious disease on the duration. As he is clinically seems to be improving we may transition to p.o. antibiotic.
--- NOTE | 2020-11-05 16:18 | PRG ---
DATE OF SERVICE: 11/05/2020 SUBJECTIVE: Patient was seen and examined at bedside and overnight events noted. Patient denies any shortness of breath or chest pain or palpitation. No history of nausea or vomiting or diarrhea or fever or chills or cramps. OBJECTIVE: General: This is a well-built male, in no apparent distress. Vital Signs: Temperature 97.7. Heart Rate 64. Respiratory rate . Blood pressure . HEENT: Atraumatic, normocephalic. Oral mucosa is moist. Neck: Supple. Cardiovascular: S1, S2 heard. Rate and rhythm regular. Respiratory: Clear to auscultation. Gastrointestinal: Abdomen is soft. Musculoskeletal: No tenderness. No edema. Dermatologic: No skin rash. Neurologic: Alert and awake and oriented x3. No focal neurologic deficits. Moving all the extremities. Psychiatric: Mood and affect normal. LABORATORY DATA: Potassium 5.2, BUN is 40, creatinine 6.5. ASSESSMENT AND PLAN: 1. End-stage renal disease. Continue dialysis. 2. Edema. 3. Hypertension. 4. Anemia. 5. Hyperkalemia, limit potassium intake. 6. Continue dialysis as tolerated. Job ID: [id number]
[2020-11-05] MEDS: Cefepime 0.5 GM, Admixture Fee 1 EACH in Sodium Chloride 0.9% 100 ML IVPB SCH (17:11)
[2020-11-05] MEDS ORDERED: Morphine 2 MG/ML VIAL SLOW IVP SCH (19:00)
[2020-11-05] MEDS ORDERED: diphenhydrAMINE 50 MG/ML VIAL IVP SCH (19:00)
[2020-11-05] MEDS: Amitriptyline HCl 100 MG TAB PO SCH (21:47)
[2020-11-05] MEDS: Senokot S 8.6-50 MG TAB PO SCH (21:47)
[2020-11-06] MEDS: Morphine 2 MG/ML VIAL SLOW IVP PRN ×2 (02:07→06:11)
[2020-11-06] MEDS: diphenhydrAMINE 50 MG/ML VIAL IVP PRN ×5 (02:08→21:32)
--- NOTE | 2020-11-06 08:26 | PRG ---
DATE OF SERVICE: 11/06/2020 SUBJECTIVE: A 25-year-old gentleman being seen for end-stage renal disease. The patient denied any nausea, vomiting, or chest pain. OBJECTIVE: GENERAL: The patient is awake and alert. VITAL SIGNS: Afebrile, pulse 82, breathing at 16, blood pressure 138/97. HEENT: Head normocephalic and atraumatic. Eyes intact, no ulcers. Nose intact, no ulcers. Ears intact, no ulcers. NECK: Supple. No JVD. CHEST: Symmetrical and clear. CARDIOVASCULAR: Shows S1 and S2, no rub, no murmur. GASTROINTESTINAL: Abdomen is soft, bowel sounds positive. EXTREMITIES: Show no edema or ulcers. SKIN: Shows no rash or petechiae. MUSCULOSKELETAL: Shows no joint swelling or stiffness. GENITOURINARY: Shows no Pimentel or CVA tenderness. NEUROLOGIC: Motor intact. Cranial nerves intact. ASSESSMENT AND PLAN: 1. End-stage renal disease, plan dialysis. 2. Hypertension, stable. 3. Anemia, stable. 4. Medication based on GFR appropriate. Job ID: [id number]
[2020-11-06] MEDS: Labetalol 100 MG TAB PO SCH ×2 (09:25→21:22)
[2020-11-06] MEDS: Meropenem 500 MG in Sodium Chloride 0.9% 100 ML IVPB SCH (09:25)
[2020-11-06] MEDS: NIFEdipine XL 90 MG TAB PO SCH ×2 (09:25→21:22)
[2020-11-06] MEDS: hydrALAZINE 25 MG TAB PO SCH ×3 (09:25→21:22)
[2020-11-06] MEDS: Polyethylene Glycol 3350 17 GM Packet PO SCH (09:25)
[2020-11-06] MEDS: Sevelamer Carbonate 800 MG TAB PO SCH ×4 (09:26→17:42)
[2020-11-06] MEDS: Simethicone Chewable 80 MG TAB PO SCH ×5 (09:26→21:19)
[2020-11-06] MEDS: Saccharomyces boulardii 250 MG CAP PO SCH (09:27)
[2020-11-06] MEDS: Senokot S 8.6-50 MG TAB PO SCH ×2 (09:28→21:21)
[2020-11-06] MEDS: cloNIDine 0.3 MG TAB PO SCH ×4 (09:29→21:19)
[2020-11-06] MEDS: traMADol HCl 50 MG TAB PO PRN ×2 (11:21→21:20)
--- NOTE | 2020-11-06 13:21 | PDOC.HOSPP ---
- Subjective Encounter Date: 11/06/20 Encounter Time: 10:10 Subjective: Patient is doing well he is actually having some meals, ordered from outside. He is also demanding some pain medications upon discharge. While talking he becomes quite somnolent. I Have to wake him few times in order for him to complete his sentences - Objective Vital Signs & Weight: Vital Signs (12 hours) Temp Pulse Resp BP BP Pulse Ox 11/06/20 11:24 97.6 F 112 H 18 156/101 H 100 11/06/20 09:29 138/97 H 11/06/20 08:00 97 11/06/20 07:30 98.2 F 82 18 138/97 H 96 11/06/20 04:00 97.9 F 74 16 141/105 H 99 Weight Weight 168 lb 10.458 oz Most Recent Monitor Data Heart Rate from ECG 100 NIBP 142/98 NIBP BP-Mean 112 Respiration from ECG 28 SpO2 98 I&O: 11/05/20 11/06/20 11/07/20 06:59 06:59 06:59 Intake Total 1340 3220 Output Total 0 0 Balance 1340 3220 Result Diagrams: 10/31/20 04:17 11/03/20 04:22 Hospitalist ROS - Medication Medications: Active Medications Generic Name Dose Route Start Last Admin Trade Name Freq PRN Reason Stop Dose Admin Acetaminophen 650 mg 10/27/20 17:00 10/27/20 23:57 Acetaminophen 325 Mg Tab PO 650 mg Q4H PRN Administration Headache/Fever/Mild Pain (1-3) Amitriptyline HCl 100 mg 11/03/20 21:00 11/05/20 21:47 Amitriptyline Hcl 100 Mg Tab PO 100 mg QPM ALANNA Administration Clonidine 0.3 mg 11/03/20 15:00 11/06/20 09:29 Clonidine 0.3 Mg Tab PO 0.3 mg TID ALANNA Administration Diphenhydramine HCl 25 mg 11/01/20 18:13 11/06/20 11:26 Diphenhydramine 50 Mg/Ml Vial IVP 25 mg Q4H PRN Administration Itching Epoetin John-epbx 10,000 unit 10/30/20 12:00 11/03/20 16:46 Epoetin John-Epbx (Esrd) 10,000 Unit/Ml Vial IVP 10,000 unit MoWeFr ALANNA Administration Hydralazine HCl 100 mg 11/03/20 15:00 11/05/20 21:49 Hydralazine 25 Mg Tab PO Not Given TID ALANNA Cefepime HCl 0.5 gm/ 100 mls @ 200 mls/hr 10/28/20 16:00 11/05/20 17:11 Miscellaneous Medication 1 IVPB 100 mls each/ Sodium Chloride 1600 ALANNA Administration Meropenem 500 mg/ Sodium 100 mls @ 200 mls/hr 10/30/20 09:00 11/06/20 09:25 Chloride IVPB 100 mls DAILY ALANNA Administration Labetalol HCl 600 mg 11/03/20 21:00 11/05/20 21:49 Labetalol 100 Mg Tab PO Not Given BID ALANNA Nifedipine 90 mg 11/03/20 21:00 11/05/20 21:49 Nifedipine Xl 90 Mg Tab PO Not Given BID ALANNA Ondansetron HCl 4 mg 10/27/20 17:00 11/02/20 08:25 Ondansetron Pf 4 Mg/2 Ml Vial IVP 4 mg Q6H PRN Administration Nausea/Vomiting Pantoprazole Sodium 40 mg 10/28/20 09:00 11/06/20 09:31 Pantoprazole 40 Mg Tab PO 40 mg DAILY ALANNA Administration Saccharomyces Boulardii 250 mg 10/28/20 09:00 11/06/20 09:27 Saccharomyces Boulardii 250 Mg Cap PO 250 mg DAILY ALANNA Administration Senna/Docusate Sodium 2 tab 10/27/20 17:00 11/05/20 12:33 Senokot S 8.6-50 Mg Tab PO 2 tab BID PRN Administration Constipation Senna/Docusate Sodium 2 tab 11/05/20 21:00 11/06/20 09:28 Senokot S 8.6-50 Mg Tab PO 2 tab BID ALANNA Administration Sevelamer Carbonate 2,400 mg 10/27/20 17:00 11/06/20 09:26 Sevelamer Carbonate 800 Mg Tab PO Not Given TID-WM ALANNA Simethicone 80 mg 10/29/20 09:00 11/06/20 09:26 Simethicone Chewable 80 Mg Tab PO 80 mg PCHS ALANNA Administration Sodium Chloride 10 ml 10/28/20 21:00 11/06/20 09:32 Flush - Normal Saline 10 Ml Syringe IVF 10 ml Q12HR ALANNA Administration Sodium Chloride 10 ml 10/28/20 09:15 11/06/20 11:25 Flush - Normal Saline 10 Ml Syringe IVF 10 ml PRN PRN Administration Saline Flush Tramadol HCl 50 mg 11/06/20 11:16 11/06/20 11:21 Tramadol Hcl 50 Mg Tab PO 50 mg Q6H PRN Administration Pain - Exam General Appearance: NAD, awake alert General - other findings: Sleepy at times Eye: PERRL ENT: normocephalic atraumatic Neck: supple Heart: RRR Respiratory: CTAB, normal chest expansion Gastrointestinal: soft, normal bowel sounds Neurological: cranial nerve grossly intact, no focal deficits Psychiatric: normal affect, normal behavior, A&O x 3 Hosp A/P - Plan 25 years old -[place] gentleman who has multiple comorbidities including ESRD on dialysis, history of renal transplant, 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 Patient was found hypotensive with systolic blood pressures in the 60s. He was given volume resuscitation, and subsequently started on vasopressor support with Levophed, and admitted to hospitalist service. Generalized, persistent abdominal Pain Possible peritonitis --secondary to above. chronic issue. --cultures no growth, pt is on IV abx of possible SBP. ID is following Recurrent Ascites - d/t CHF/ESRD --s/p paracentesis x 3 this admisson(500ml, 3.2L, and 2.3L), fluid re- accumulated quite quickly. --abd pain is somewhat better. Cultures no growth Accelerated HTN - BP >220/100 --IV hydralazine with parameters, resume home meds (which was on hold as he was hypotensive on arrival) Acute metabolic encephalopathy - likely multifactorial, hypoglycemia. Resolved. --He was given D50, responded appropriately. Avoid sedative medications. Follow clinically --Resolved. Hypotension --resolved. 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 -Echo done on October shows EF of 60% normal left ventricular size; there is no mention of any valvular abnormality specifically the mitral valve. - left ventricular hypertrophy -enlarged right ventricular cavity and mild dilated left atrium Constipation -Stool softeners. Cultures negative thus far. I will contact Dr. Grayson for finalization of his antibiotics. He is currently on cefepime and meropenem. Pain medications--- morphine discontinued. Ultram as needed Patient states that he lives with the family. Probable discharge to home with home health as needed.
[2020-11-06] MEDS: EPOETIN ALFA-EPBX (ESRD) 10,000 UNIT/ML VIAL IVP SCH (18:22)
[2020-11-06] MEDS: Senokot S 8.6-50 MG TAB PO PRN (21:19)
[2020-11-06] MEDS: Amitriptyline HCl 100 MG TAB PO SCH (21:20)
[2020-11-07] MEDS: traMADol HCl 50 MG TAB PO PRN ×4 (04:37→23:26)
[2020-11-07] MEDS: diphenhydrAMINE 50 MG/ML VIAL IVP PRN ×3 (04:38→13:25)
[2020-11-07 08:48] LABS: Hemoglobin 9.1 g/dL (14.0-18.0)
[2020-11-07 09:02] LABS: Anion Gap 17 mmol/L (10-20); BUN (Urea Nitrogen) 33 mg/dL (8.9-20.6); Calc. Creatinine Clearance 21 mL/min (70-130); Calcium 7.8 mg/dL (7.8-10.44); Carbon Dioxide 28 mmol/L (22-29); Chloride 97 mmol/L (98-107); Glucose 92 mg/dL (70-105); Potassium 4.7 mmol/L (3.5-5.1); Sodium 137 mmol/L (136-145)
[2020-11-07] MEDS: Simethicone Chewable 80 MG TAB PO SCH ×4 (09:06→22:09)
[2020-11-07] MEDS: Saccharomyces boulardii 250 MG CAP PO SCH (09:06)
[2020-11-07] MEDS: Sevelamer Carbonate 800 MG TAB PO SCH ×3 (09:06→18:01)
[2020-11-07] MEDS: Polyethylene Glycol 3350 17 GM Packet PO SCH ×2 (09:07→09:11)
[2020-11-07] MEDS: Senokot S 8.6-50 MG TAB PO SCH ×2 (09:07→22:06)
[2020-11-07] MEDS: cloNIDine 0.3 MG TAB PO SCH ×3 (09:18→22:07)
[2020-11-07] MEDS: hydrALAZINE 25 MG TAB PO SCH ×3 (09:18→22:07)
[2020-11-07] MEDS: Labetalol 100 MG TAB PO SCH ×2 (09:18→22:07)
[2020-11-07] MEDS: NIFEdipine XL 90 MG TAB PO SCH ×2 (09:18→22:07)
--- NOTE | 2020-11-07 11:28 | PRG ---
DATE OF SERVICE: 11/07/2020 SUBJECTIVE: A 25-year-old gentleman being seen for end-stage kidney disease. The patient denies any nausea, vomiting, or chest pain. PHYSICAL EXAMINATION: General: The patient is awake and alert. Vital Signs: Afebrile, pulse 75, breathing 16, blood pressure was 109/70. HEENT: Head normocephalic and atraumatic. Eyes intact, no ulcers. Nose intact, no ulcers. Ears intact, no ulcers. Neck: Supple. No JVD. Chest: Symmetrical and clear. Cardiovascular: Shows S1 and S2, no rub, no murmur. Gastrointestinal: Abdomen is soft, bowel sounds positive. Extremities: Show no edema or ulcers. Skin: Shows no rash or petechiae. Musculoskeletal: Shows no joint swelling or stiffness. Genitourinary: Shows no Pimentel or CVA tenderness. Neurologic: Motor intact. Cranial nerves intact. LABORATORY DATA: Reviewed. ASSESSMENT AND PLAN: 1. Stage 6 chronic kidney disease, on hemodialysis. 2. Hypertension, stable. 3. Anemia, stable. 4. Medication based on GFR appropriate. Job ID: [id number]
[2020-11-07 13:48] VITALS: BMI 21.4
--- NOTE | 2020-11-07 14:23 | PDOC.HOSPP ---
- Subjective Encounter Date: 11/07/20 Encounter Time: 08:50 Subjective: Patient is sitting comfortably in the bed. I explained the negative impact of narcotics. He he is agreeable to continue with Ultram for now. But he is requesting more frequent doses of Benadryl. I d/w Dr. Hadley regarding the prognosis for this patient. ptwould benefit with palliative consult including comfort care approach. - Objective Vital Signs & Weight: Vital Signs (12 hours) Temp Pulse Resp BP Pulse Ox 11/07/20 10:56 97.8 F 83 16 109/70 100 11/07/20 08:05 97.5 F L 77 18 115/79 100 11/07/20 04:20 97.4 F L 80 12 124/89 100 11/07/20 03:34 100 Weight Admit Weight 179 lb 10.828 oz Weight 166 lb 14.239 oz Most Recent Monitor Data Heart Rate from ECG 100 NIBP 142/98 NIBP BP-Mean 112 Respiration from ECG 28 SpO2 98 I&O: 11/06/20 11/07/20 11/08/20 06:59 06:59 06:59 Intake Total 3220 2420 Output Total 0 4000 Balance 3220 -1580 Result Diagrams: 11/07/20 08:19 11/07/20 08:18 Hospitalist ROS - Medication Medications: Active Medications Generic Name Dose Route Start Last Admin Trade Name Freq PRN Reason Stop Dose Admin Acetaminophen 650 mg 10/27/20 17:00 10/27/20 23:57 Acetaminophen 325 Mg Tab PO 650 mg Q4H PRN Administration Headache/Fever/Mild Pain (1-3) Amitriptyline HCl 100 mg 11/03/20 21:00 11/06/20 21:20 Amitriptyline Hcl 100 Mg Tab PO 100 mg QPM ALANNA Administration Clonidine 0.3 mg 11/03/20 15:00 11/07/20 09:18 Clonidine 0.3 Mg Tab PO Not Given TID ALANNA Diphenhydramine HCl 25 mg 11/01/20 18:13 11/07/20 13:25 Diphenhydramine 50 Mg/Ml Vial IVP 25 mg Q4H PRN Administration Itching Epoetin John-epbx 10,000 unit 10/30/20 12:00 11/06/20 18:22 Epoetin John-Epbx (Esrd) 10,000 Unit/Ml Vial IVP 10,000 unit MoWeFr ALANNA Administration Hydralazine HCl 100 mg 11/03/20 15:00 11/07/20 09:18 Hydralazine 25 Mg Tab PO Not Given TID ALANNA Labetalol HCl 600 mg 11/03/20 21:00 11/07/20 09:18 Labetalol 100 Mg Tab PO Not Given BID ALANNA Nifedipine 90 mg 11/03/20 21:00 11/07/20 09:18 Nifedipine Xl 90 Mg Tab PO Not Given BID ALANNA Ondansetron HCl 4 mg 10/27/20 17:00 11/02/20 08:25 Ondansetron Pf 4 Mg/2 Ml Vial IVP 4 mg Q6H PRN Administration Nausea/Vomiting Pantoprazole Sodium 40 mg 10/28/20 09:00 11/07/20 09:07 Pantoprazole 40 Mg Tab PO 40 mg DAILY ALANNA Administration Polyethylene Glycol 17 gm 11/06/20 09:00 11/07/20 09:11 Polyethylene Glycol 3350 17 Gm Packet PO Not Given DAILY ALANNA Saccharomyces Boulardii 250 mg 10/28/20 09:00 11/07/20 09:06 Saccharomyces Boulardii 250 Mg Cap PO 250 mg DAILY ALANNA Administration Senna/Docusate Sodium 2 tab 10/27/20 17:00 11/06/20 21:19 Senokot S 8.6-50 Mg Tab PO 2 tab BID PRN Administration Constipation Senna/Docusate Sodium 2 tab 11/05/20 21:00 11/07/20 09:07 Senokot S 8.6-50 Mg Tab PO 2 tab BID ALANNA Administration Sevelamer Carbonate 2,400 mg 10/27/20 17:00 11/07/20 11:27 Sevelamer Carbonate 800 Mg Tab PO Not Given TID-WM ALANNA Simethicone 80 mg 10/29/20 09:00 11/07/20 13:25 Simethicone Chewable 80 Mg Tab PO 80 mg PCHS ALANNA Administration Sodium Chloride 10 ml 10/28/20 21:00 11/07/20 09:19 Flush - Normal Saline 10 Ml Syringe IVF 10 ml Q12HR ALANNA Administration Sodium Chloride 10 ml 10/28/20 09:15 11/06/20 18:23 Flush - Normal Saline 10 Ml Syringe IVF 10 ml PRN PRN Administration Saline Flush Tramadol HCl 50 mg 11/06/20 11:16 11/07/20 10:54 Tramadol Hcl 50 Mg Tab PO 50 mg Q6H PRN Administration Pain - Exam General Appearance: NAD, awake alert Eye: PERRL ENT: normocephalic atraumatic Neck: supple Heart: RRR, normal peripheral pulses Respiratory: CTAB, normal chest expansion Gastrointestinal: soft, normal bowel sounds Neurological: cranial nerve grossly intact, no focal deficits Psychiatric: normal affect, normal behavior, A&O x 3 Hosp A/P - Plan 25 years old -[place] gentleman who has multiple comorbidities including ESRD on dialysis, history of renal transplant, 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 Patient was found hypotensive with systolic blood pressures in the 60s. He was given volume resuscitation, and subsequently started on vasopressor support with Levophed, and admitted to hospitalist service. Generalized, persistent abdominal Pain Possible peritonitis --secondary to above. chronic issue. --cultures no growth, pt is on IV abx of possible SBP. ID is following Recurrent Ascites - d/t CHF/ESRD --s/p paracentesis x 3 this admisson(500ml, 3.2L, and 2.3L), fluid re- accumulated quite quickly. --abd pain is somewhat better. Cultures no growth Accelerated HTN - BP >220/100 --IV hydralazine with parameters, resume home meds (which was on hold as he was hypotensive on arrival) Acute metabolic encephalopathy - likely multifactorial, hypoglycemia. Resolved. --He was given D50, responded appropriately. Avoid sedative medications. Follow clinically --Resolved. Hypotension --resolved. 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 -Echo done on October shows EF of 60% normal left ventricular size; the re is no mention of any valvular abnormality specifically the mitral valve. - left ventricular hypertrophy -enlarged right ventricular cavity and mild dilated left atrium Constipation -Stool softeners. Cultures negative thus far. I will contact Dr. Grayson for finalization of his antibiotics. He is currently on cefepime and meropenem. Pain medications--- morphine discontinued. Ultram as needed Patient states that he lives with the family. Probable discharge to home with home health as needed. 15th I d/w Dr. Hadley regarding the prognosis for this patient. pt would benefit with palliative consult including comfort care approach. Otherwise he is going to frequently come back with the generalized overall pain which cannot be overlooked. Possible discharge with the home hospice in a day or 2.
[2020-11-07] MEDS: Amitriptyline HCl 100 MG TAB PO SCH (22:07)
[2020-11-07] MEDS: diphenhydrAMINE 25 MG CAP PO PRN (23:26)
[2020-11-08] MEDS: diphenhydrAMINE 25 MG CAP PO PRN (05:19)
[2020-11-08] MEDS: traMADol HCl 50 MG TAB PO PRN ×2 (05:19→13:56)
[2020-11-08] MEDS: Senokot S 8.6-50 MG TAB PO SCH (09:14)
[2020-11-08] MEDS: Polyethylene Glycol 3350 17 GM Packet PO SCH (09:14)
[2020-11-08] MEDS: Sevelamer Carbonate 800 MG TAB PO SCH ×3 (09:16→18:21)
[2020-11-08] MEDS: Saccharomyces boulardii 250 MG CAP PO SCH (09:16)
[2020-11-08] MEDS: Simethicone Chewable 80 MG TAB PO SCH ×2 (09:17→18:21)
[2020-11-08] MEDS: cloNIDine 0.3 MG TAB PO SCH ×2 (11:39→18:01)
[2020-11-08] MEDS: Labetalol 100 MG TAB PO SCH (11:40)
[2020-11-08] MEDS: NIFEdipine XL 90 MG TAB PO SCH (11:40)
[2020-11-08] MEDS: hydrALAZINE 25 MG TAB PO SCH ×2 (11:40→18:01)
[2020-11-08] MEDS ORDERED: Morphine 2 MG/ML VIAL SLOW IVP SCH (11:45)
--- NOTE | 2020-11-08 13:33 | PDOC.HOSPP ---
- Subjective Encounter Date: 11/08/20 Encounter Time: 10:30 - Objective Vital Signs & Weight: Vital Signs (12 hours) Temp Pulse Resp BP Pulse Ox 11/08/20 11:55 97.6 F 104 H 20 124/86 95 11/08/20 07:18 98.1 F 100 20 140/95 H 95 11/08/20 03:39 98.6 F 100 20 138/97 H 99 Weight Admit Weight 179 lb 10.828 oz Weight 166 lb 14.239 oz Most Recent Monitor Data Heart Rate from ECG 100 NIBP 142/98 NIBP BP-Mean 112 Respiration from ECG 28 SpO2 98 I&O: 11/07/20 11/08/20 11/09/20 06:59 06:59 06:59 Intake Total 2420 1680 Output Total 4000 Balance -1580 1680 Result Diagrams: 11/07/20 08:19 11/07/20 08:18 Hospitalist ROS - Medication Medications: Active Medications Generic Name Dose Route Start Last Admin Trade Name Freq PRN Reason Stop Dose Admin Acetaminophen 650 mg 10/27/20 17:00 10/27/20 23:57 Acetaminophen 325 Mg Tab PO 650 mg Q4H PRN Administration Headache/Fever/Mild Pain (1-3) Amitriptyline HCl 100 mg 11/03/20 21:00 11/07/20 22:07 Amitriptyline Hcl 100 Mg Tab PO Not Given QPM ALANNA Clonidine 0.3 mg 11/03/20 15:00 11/08/20 11:39 Clonidine 0.3 Mg Tab PO Not Given TID ALANNA Diphenhydramine HCl 25 mg 11/07/20 14:22 11/08/20 05:19 Diphenhydramine 25 Mg Cap PO 25 mg Q4H PRN Administration Itching Epoetin John-epbx 10,000 unit 10/30/20 12:00 11/06/20 18:22 Epoetin John-Epbx (Esrd) 10,000 Unit/Ml Vial IVP 10,000 unit MoWeFr ALANNA Administration Hydralazine HCl 100 mg 11/03/20 15:00 11/08/20 11:40 Hydralazine 25 Mg Tab PO Not Given TID ALANNA Labetalol HCl 600 mg 11/03/20 21:00 11/08/20 11:40 Labetalol 100 Mg Tab PO Not Given BID ALANNA Morphine Sulfate 2 mg 11/08/20 11:45 11/08/20 11:56 Morphine 2 Mg/Ml Vial SLOW IVP 11/08/20 14:00 2 mg NOW ALANNA Administration Nifedipine 90 mg 11/03/20 21:00 11/08/20 11:40 Nifedipine Xl 90 Mg Tab PO Not Given BID ALANNA Pantoprazole Sodium 40 mg 10/28/20 09:00 11/08/20 09:16 Pantoprazole 40 Mg Tab PO 40 mg DAILY ALANNA Administration Polyethylene Glycol 17 gm 11/06/20 09:00 11/08/20 09:14 Polyethylene Glycol 3350 17 Gm Packet PO Not Given DAILY ALANNA Saccharomyces Boulardii 250 mg 10/28/20 09:00 11/08/20 09:16 Saccharomyces Boulardii 250 Mg Cap PO 250 mg DAILY ALANNA Administration Senna/Docusate Sodium 2 tab 10/27/20 17:00 11/06/20 21:19 Senokot S 8.6-50 Mg Tab PO 2 tab BID PRN Administration Constipation Senna/Docusate Sodium 2 tab 11/05/20 21:00 11/08/20 09:14 Senokot S 8.6-50 Mg Tab PO Not Given BID ALANNA Sevelamer Carbonate 2,400 mg 10/27/20 17:00 11/08/20 09:16 Sevelamer Carbonate 800 Mg Tab PO Not Given TID-WM ALANNA Simethicone 80 mg 10/29/20 09:00 11/08/20 09:17 Simethicone Chewable 80 Mg Tab PO 80 mg PCHS ALANNA Administration Sodium Chloride 10 ml 10/28/20 21:00 11/08/20 09:17 Flush - Normal Saline 10 Ml Syringe IVF 10 ml Q12HR ALANNA Administration Sodium Chloride 10 ml 10/28/20 09:15 11/06/20 18:23 Flush - Normal Saline 10 Ml Syringe IVF 10 ml PRN PRN Administration Saline Flush Tramadol HCl 50 mg 11/06/20 11:16 11/08/20 05:19 Tramadol Hcl 50 Mg Tab PO 50 mg Q6H PRN Administration Pain Hosp A/P - Plan 25 years old -[place] gentleman who has multiple comorbidities including ESRD on dialysis, history of renal transplant, 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 Patient was found hypotensive with systolic blood pressures in the 60s. He was given volume resuscitation, and subsequently started on vasopressor support with Levophed, and admitted to hospitalist service. Generalized, persistent abdominal Pain Possible peritonitis --secondary to above. chronic issue. --cultures no growth, pt is on IV abx of possible SBP. ID is following Recurrent Ascites - d/t CHF/ESRD --s/p paracentesis x 3 this admisson(500ml, 3.2L, and 2.3L), fluid re- accumulated quite quickly. --abd pain is somewhat better. Cultures no growth Accelerated HTN - BP >220/100 --IV hydralazine with parameters, resume home meds (which was on hold as he was hypotensive on arrival) Acute metabolic encephalopathy - likely multifactorial, hypoglycemia. Resolved. --He was given D50, responded appropriately. Avoid sedative medications. Follow clinically --Resolved. Hypotension --resolved. 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 -Echo done on October shows EF of 60% normal left ventricular size; there is no mention of any valvular abnormality specifically the mitral valve. - left ventricular hypertrophy -enlarged right ventricular cavity and mild dilated left atrium Constipation -Stool softeners. Cultures negative thus far. I will contact Dr. Grayson for finalization of his antibiotics. He is currently on cefepime and meropenem. Pain medications--- morphine discontinued. Ultram as needed Patient states that he lives with the family. Probable discharge to home with home health as needed. 15th I d/w Dr. Hadley regarding the prognosis for this patient. pt would benefit with palliative consult including comfort care approach. Otherwise he is going to frequently come back with the generalized overall pain which cannot be overlooked. Possible discharge with the home hospice in a day or 2.
--- NOTE | 2020-11-08 13:36 | PDOC.DS.DS ---
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 Patient was found hypotensive with systolic blood pressures in the 60s. He was given volume resuscitation, and subsequently started on vasopressor support with Levophed, and admitted to hospitalist service. Generalized, persistent abdominal Pain Possible peritonitis --secondary to above. chronic issue. --cultures no growth, pt is on IV abx of possible SBP. ID followed and okay with discontinuing the antibiotic Recurrent Ascites - d/t CHF/ESRD --s/p paracentesis x 3 this admisson(500ml, 3.2L, and 2.3L), fluid re- accumulated quite quickly. --abd pain is somewhat better. Cultures no growth Accelerated HTN - BP >220/100 --IV hydralazine with parameters, resume home meds (which was on hold as he was hypotensive on arrival) Acute metabolic encephalopathy - likely multifactorial, hypoglycemia. Resolved. --He was given D50, responded appropriately. Avoid sedative medications. Follow clinically --Resolved. 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 -Echo done on October shows EF of 60% normal left ventricular size; there is no mention of any valvular abnormality specifically the mitral valve. - left ventricular hypertrophy -enlarged right ventricular cavity and mild dilated left atrium Constipation -Stool softeners. Cultures negative thus far. I will contact Dr. Grayson for finalization of his antibiotics. He is currently on cefepime and meropenem. Pain medications--- morphine discontinued. Ultram as needed I d/w Dr. Hadley regarding the prognosis for this patient. pt would benefit with palliative consult including comfort care approach. I do not think he is amenable for any hospice approach at this time. He will be likely discharged home today. Ultram short course prescribed. Encouraged him to follow with the pain specialist. Resuscitation Status: 10/27/20 16:51 Resuscitation Status Routine Resuscitation Status: FULL: Full Resuscitation - Labs Lab Results: 11/07/20 08:19 11/07/20 08:18 Abnormal Lab Results - Last 48 hrs 11/07/20 08:18: Chloride 97 L, BUN 33 H, Creatinine 5.74 H 11/07/20 08:19: Hgb 9.1 L, Hct 28.2 L Microbiology - Entire Visit 10/30/20 Unknown Paracentesis Fluid Culture - Aspirate Body Fluid Culture - Final 10/27/20 17:17 Venous blood - Left Hand Blood Culture - Final NO GROWTH IN 5 DAYS 10/27/20 17:11 Venous blood - Neck Blood Culture - Final NO GROWTH IN 5 DAYS - Physical Exam Vitals: Vital Signs (12 hours) Temp Pulse Resp BP Pulse Ox 11/08/20 11:55 97.6 F 104 H 20 124/86 95 11/08/20 07:18 98.1 F 100 20 140/95 H 95 11/08/20 03:39 98.6 F 100 20 138/97 H 99 Weight Admit Weight 179 lb 10.828 oz Weight 166 lb 14.239 oz Most Recent Monitor Data Heart Rate from ECG 100 NIBP 142/98 NIBP BP-Mean 112 Respiration from ECG 28 SpO2 98 Physical Exam: The patient was seen and examined on the day of discharge. Quite frustrated that he wants IV morphine. Palliative has seen him. Plan - Discharge Medications Prescriptions: diphenhydrAMINE [Benadryl] 25 mg PO Q6H PRN 7 Days #20 cap PRN Reason: Itching traMADol HCl [Ultram] 50 mg PO Q6H PRN 10 Days #30 tab PRN Reason: Pain Home Medications: Medication Instructions Recorded Confirmed Type Sevelamer Carbonate [Renvela] 2,400 mg PO TID-WM 05/15/18 10/28/20 History Labetalol HCl [Normodyne] 600 mg PO BID 12/23/18 10/28/20 History Esomeprazole Magnesium [NexIUM] 40 mg PO DAILY 05/31/19 10/28/20 History Ondansetron [Zofran ODT] 4 mg PO Q6HR PRN 05/31/19 10/28/20 History Gabapentin 100 mg PO BID 01/31/20 10/28/20 History cloNIDine [Catapres] 0.3 mg PO TID #90 tab 07/22/20 10/28/20 Rx Amitriptyline HCl 100 mg PO QPM 30 Days #30 tab 07/29/20 10/28/20 Rx DULoxetine [Cymbalta] 60 mg PO DAILY 30 Days #30 cap 07/29/20 10/28/20 Rx Acetaminophen W/ Codeine 1 tab PO Q8H PRN tab 09/15/20 10/28/20 Rx [Acetaminophen/Codeine #3] NIFEdipine [Procardia XL] 90 mg PO BID #60 tab 09/15/20 10/28/20 Rx Rifampin 300 mg PO BID #46 capsule 09/15/20 10/28/20 Rx hydrALAZINE HCl 100 mg PO TID #90 tablet 09/15/20 10/28/20 Rx Saccharomyces boulardii [Florastor] 250 mg PO DAILY #30 cap 10/11/20 10/28/20 Rx diphenhydrAMINE [Benadryl] 25 mg PO Q6H PRN 7 Days #20 cap 11/08/20 Rx traMADol HCl [Ultram] 50 mg PO Q6H PRN 10 Days #30 tab 11/08/20 Rx Allergies: loracarbef [From Lorabid] Allergy (Severe, Verified 09/20/20 22:12) HIVES, CHILLS - Discharge Instructions Discharge Instructions:: PCP follow up in 1 week Please see paint supervisor for narcotic pain med prescriptions Activity:: Activity as Tolerated Nourishment:: Regular Diet - Follow up Plan Referrals: Unknown,Unknown [Primary Care Provider] - Alison Sofia MD [Active] - (Resume your dialysis schedule. ) Disposition: HOME Quality - Care Measures CORE MEASURES:: N/A
--- NOTE | 2020-11-08 14:09 | PDOC.PALCO ---
Palliative Care Consult - Consult Details Requesting Physician: Dr Hercules Reason for Consult: goals of care, symptom management, advance directives assistance - Pertinent HPI @5 year old male who had multiple hospitalizations, and at times non compliant with known episodes of leaving AMA. Most recently he was getting out of his truck and found to be confused, dizzy and fell to the ground with loss of consciousness. He was reported to be non responsive 10-15 minutes, EMS was called and arrived. Patient found to by hypotensive, with systolic BP at 60. Placed on levophed and given bolus of fluid, transported to [facility] emergency room for further evaluation. Noted to have MRSA bacteremia, chronic dialysis admitted for higher level of care. Was noted to have ascites contributing to abdominal discomfort. Renal transplant 2012. Dialysis dependent, O2 dependent. Decrease in functional activity as per patient. - Social History Smoking Status: Never smoker Smoking: no tobacco exposure Alcohol Use: none Drug Use History: none Living Situation: other (His grandmother is primary caregiver/lives with her calls her "Momma') - Medications MAR Reviewed: Yes - Allergies Allergies/Adverse Reactions: Allergies Allergy/AdvReac Type Severity Reaction Status Date / Time loracarbef [From Lorabid] Allergy Severe Verified 09/20/20 22:12 - Subjective Sleeping but arousable. Lethargic and drifts to sleep. Poor appetite, states he gets fatigued. Complains of abdominal discomfort rates it a 9/10. No facial grimace noted. Weakness, fatigue with activity. O2 dependent - ROS Constitutional: alert, loss appetite, weakness ENT: other (Denies difficulity swallowing, congestion) Respiratory: shortness of breath, other (denies cough) Cardiology: other (Denies palpitations, chest pain) Gastrointestinal: abdominal pain, bloating Genitourinary: other (Denies hematuria) - Objective Vital Signs: Vital Signs - Most Recent Temp Pulse Resp BP Pulse Ox 97.6 F 104 H 20 124/86 95 11/08/20 11:55 11/08/20 11:55 11/08/20 11:55 11/08/20 11:55 11/08/20 11:55 Palliative Performance Scale: 50 - Physical Exam Constitutional: ill appearing HEENT: EOMI, moist MMs, sclera anicteric Respiratory: no wheezing, unlabored breathing Cardiovascular: RRR Gastrointestinal: continent Deviation from normal: Mildly distended, tender Musculoskeletal: no cyanosis, no clubbing Neurology: moves all 4 limbs, no focal deficits Skin: cap refill <2 seconds, normal turgor Deviation from normal: Dryness Psychiatric: A&O x 3, normal mood, depressed - Problem List (1) Palliative care encounter Code(s): Z51.5 - ENCOUNTER FOR PALLIATIVE CARE Current Visit: Yes Status: Acute (2) Abdominal pain Code(s): R10.9 - UNSPECIFIED ABDOMINAL PAIN Current Visit: No Status: Acute Qualifiers: Abdominal location: generalized Qualified Code(s): R10.84 - Generalized abdominal pain (3) Acute on chronic anemia Code(s): D64.9 - ANEMIA, UNSPECIFIED Current Visit: No Status: Acute (4) Hypotension Current Visit: No Status: Acute (5) Anemia of renal disease Code(s): D63.1 - ANEMIA IN CHRONIC KIDNEY DISEASE Current Visit: No Status: Chronic (6) Ascites Code(s): R18.8 - OTHER ASCITES Current Visit: No Status: Chronic Qualifiers: Ascites type: other type (7) ESRD (end stage renal disease) on dialysis Code(s): N18.6 - END STAGE RENAL DISEASE; Z99.2 - DEPENDENCE ON RENAL DIALYSIS Current Visit: No Status: Chronic - Plan/Recommendations Plan: Short life review. he lives with his grandmother, who is his primary caregiver and he calls her "Momma". Favorite meal is Hard shell tacos with chopped steak. Discussed quality of life. States on days he does not go to dialysis he mostly stays home and sleeps. Revisited Chronic disease and Goodpasture syndrome \\. Discussed quality of life. Mr Martínez states he desires to continue to return to the hospital as needed, introduced option of hospice. However, secondary to chronic dialysis to transition to hospice patient would have to elect to stop dialysis treatment. He states he is currently not ready to "give up". We did discuss that in the future it may be suggested again to be a DNAR and this was because of poor prognosis and hope for dignity at end of life. Discussed not a candidate for Morphine in home setting secondary to recent admission related to hypotension, validated chronic abdominal pain and encouraged non pharmacological measures such as breathing exercises, warm heating pad, as well as use of Tramadol. Communicated with Dr Hercules [[id number]] minutes spent on this encounter with >50% of the time in counseling and coordination of care. Thank you for this very appropriate consult.
[2020-11-08] MEDS: EPOETIN ALFA-EPBX (ESRD) 10,000 UNIT/ML VIAL IVP SCH (18:22)
[2020-11-08 19:21] VITALS: BP 111/70; TEMP 97.9
--- NOTE | 2020-11-09 13:05 | PRG ---
DATE OF SERVICE: 11/08/2020 SUBJECTIVE: A 25-year-old gentleman, being seen for end-stage renal disease. The patient denied nausea, vomiting, or chest pain. OBJECTIVE: General: The patient is awake and alert. Vital Signs: Pulse 74, breathing at 16, blood pressure 124/86. HEENT: Head normocephalic and atraumatic. Eyes intact, no ulcers. Nose intact, no ulcers. Ears intact, no ulcers. Neck: Supple. No JVD. Chest: Symmetrical and clear. Cardiovascular: Shows S1 and S2, no rub, no murmur. Gastrointestinal: Abdomen is soft, bowel sounds positive. Extremities: Show no edema or ulcers. Skin: Shows no rash or petechiae. Musculoskeletal: Shows no joint swelling or stiffness. Genitourinary: Shows no Pimentel or CVA tenderness. Neurologic: Motor intact. Cranial nerves intact. LABORATORY DATA: Reviewed. ASSESSMENT AND PLAN: 1. Stage 6 chronic kidney disease, on hemodialysis. 2. Hypertension, stable. 3. Anemia, stable. 4. Medications based on GFR appropriate. Job ID: [id number]
--- NOTE | 2020-11-11 16:24 | EKG ---
Test Reason : Blood Pressure : / mmHG Vent. Rate : 069 BPM Atrial Rate : 069 BPM P-R Int : 222 ms QRS Dur : 104 ms QT Int : 444 ms P-R-T Axes : 035 024 021 degrees QTc Int : 475 ms Sinus rhythm with 1st degree A-V block T wave abnormality, consider anterior ischemia Abnormal ECG Confirmed by EMILIANA CORDOBA M.D. ([id number]), medical transcription editor ZENA JOSEPH ([id number]) on 11/11/2020 4:24:24 PM Referred By: Confirmed By:EMILIANA CORDOBA M.D.
== END 2020-11-08 18:50 | disposition home or self-care (01) | DRG 871 ==
LOC: ERS 15:18 → CCU 17:00 → IMCU/EMU 10-28 15:05 → 2NO 10-29 19:14
PROVIDERS: ADMIT Internal Medicine; ATTEND Internal Medicine
PROC: 06HY33Z Insertion of Infusion Device into Lower Vein, Percutaneous Approach (ICD-10-PCS; principal; 2020-10-27)
PROC: 0W9G3ZZ Drainage of Peritoneal Cavity, Percutaneous Approach (ICD-10-PCS; 2020-10-27)
PROC: 3E033XZ Introduction of Vasopressor into Peripheral Vein, Percutaneous Approach (ICD-10-PCS; 2020-10-27)
PROC: 0W9G3ZZ Drainage of Peritoneal Cavity, Percutaneous Approach (ICD-10-PCS; 2020-10-30)
PROC: 0W9G3ZZ Drainage of Peritoneal Cavity, Percutaneous Approach (ICD-10-PCS; 2020-11-02)
PROC: 5A1D70Z Performance of Urinary Filtration, Intermittent, Less than 6 Hours Per Day (ICD-10-PCS; 2020-11-06)
DX: A41.9 Sepsis, unspecified organism (principal); N18.6 End stage renal disease; Z51.5 Encounter for palliative care; Z20.828 Contact with and (suspected) exposure to other viral communicable diseases; I50.33 Acute on chronic diastolic (congestive) heart failure; G93.41 Metabolic encephalopathy; K65.2 Spontaneous bacterial peritonitis; I42.9 Cardiomyopathy, unspecified; I13.2 Hypertensive heart and chronic kidney disease with heart failure and with stage 5 chronic kidney disease, or end stage renal disease; D61.818 Other pancytopenia; M31.0 Hypersensitivity angiitis; R18.8 Other ascites; F41.9 Anxiety disorder, unspecified; E87.5 Hyperkalemia; L30.9 Dermatitis, unspecified; G89.29 Other chronic pain; E16.2 Hypoglycemia, unspecified; E88.09 Other disorders of plasma-protein metabolism, not elsewhere classified; K59.00 Constipation, unspecified; Z94.0 Kidney transplant status; Z99.2 Dependence on renal dialysis; Z95.2 Presence of prosthetic heart valve; Z88.8 Allergy status to other drugs, medicaments and biological substances; Z79.899 Other long term (current) drug therapy; Z91.15 Patient's noncompliance with renal dialysis; Z87.11 Personal history of peptic ulcer disease
CPT/HCPCS: 36415; 36416; 36430; 36556; 49082; 49083; 71045; 71250; 74018; 74177; 80048; 80053; 80202; 82042; 82150; 82550; 83605; 83615; 83690; 83735; 84145; 84157; 84443; 84484; 85014; 85018; 85025; 85060; 85610; 85730; 86140; 86850; 86900; 86901; 87040; 87070; 87205; 89051; 90935; 93005; 93306; 96365; 96366; 99292; G0257; J0692; J1200; J2185; J2270; J2405; J2765; J3010; J3370; J3490; J7050; P9016; P9047; Q0163; Q5105; Q9967; U0002

== ENCOUNTER 2020-11-10 11:48 | Emergency (ER) | payer OTHER ==
--- NOTE | 2020-11-10 12:44 | RAD ---
Portable frontal chest radiograph: 11/10/2020 COMPARISON: 10/27/2020 HISTORY: Chest pain with facial swelling and hypertension, dialysis patient FINDINGS: Stable enlargement of the cardiac silhouette. Evidence of prior cardiac valve surgery and m idline sternotomy. No pneumothorax. There is extensive interstitial and alveolar opacity within the perihilar regions and both lung bases , progressed since the prior exam. Small bilateral pleural effusions are suspected. IMPRESSION: Interval development of interstitial and alveolar opacity with bilateral small pleural ef fusions. Findings are most consistent with pulmonary edema. Superimposed infection cannot be excluded. Recommend short-term follow-up imaging of the chest following treatment to document resolut ion.
[2020-11-10 13:47] LABS: #Eosinphils 0.3 thou/uL (0.0-0.7); #Lymphocytes 1.2 thou/uL (1.20-3.40); #Monocytes 0.7 thou/uL (0.11-0.59); #Neutrophils 4.7 thou/uL (1.40-6.50); %Basophils 0.3 % (0.0-1.0); %Eosinophils 4.7 % (0.0-10.0); %Lymphocytes 16.8 % (21.0-51.0); %Monocytes 9.8 % (0.0-10.0); %Neutrophils 68.4 % (42.0-75.0); Hemoglobin 9.6 g/dL (14.0-18.0); Mean Corpuscular HGB CONC 31.8 g/dL (32.0-36.0); Mean Corpuscular Hemoglobin 30.4 pg (27.0-31.0); Mean Corpuscular Volume 95.6 fL (78.0-98.0); Mean Platelet Volume 6.4 fL (7.4-10.4); Platelet Count 106 thou/uL (130-400); RBC Distribution Width 19.8 % (11.5-14.5); Red Blood Cell (RBC) Count 3.14 mill/uL (4.70-6.10); White Blood Cell (WBC) Count 6.9 thou/uL (4.8-10.8)
[2020-11-10 13:50] LABS: INR-International Normal Ratio 1.5; Prothrombin Time 18.3 sec (12.0-14.7)
[2020-11-10 13:51] LABS: PTT 61.7 sec (22.9-36.1)
[2020-11-10 14:05] LABS: Magnesium 2.4 mg/dL (1.6-2.6); Phosphorus 5.3 mg/dL (2.3-4.7)
[2020-11-10 14:07] LABS: ALT (SGPT) 12 U/L (8-55); AST (SGOT) 16 U/L (5-34); Alkaline Phosphatase 198 U/L (40-110); Anion Gap 19 mmol/L (10-20); BUN (Urea Nitrogen) 43 mg/dL (8.9-20.6); Bilirubin, Total 1.4 mg/dL (0.2-1.2); Calc. Creatinine Clearance 0 mL/min (70-130); Calcium 8.5 mg/dL (7.8-10.44); Carbon Dioxide 29 mmol/L (22-29); Chloride 94 mmol/L (98-107); Globulin 4.4 g/dL (2.4-3.5); Glucose 78 mg/dL (70-105); Protein, Total 7.4 g/dL (6.0-8.3); Sodium 136 mmol/L (136-145)
[2020-11-10 14:09] LABS: CKMB 0.6 ng/mL (0-6.6)
== END 2020-11-10 14:33 | disposition home or self-care (01) ==
LOC: ERS 11:48
DX: J81.1 Chronic pulmonary edema (principal); R79.9 Abnormal finding of blood chemistry, unspecified; E87.5 Hyperkalemia; R00.0 Tachycardia, unspecified; I12.0 Hypertensive chronic kidney disease with stage 5 chronic kidney disease or end stage renal disease; N18.6 End stage renal disease; Z99.2 Dependence on renal dialysis; Z79.899 Other long term (current) drug therapy
CPT/HCPCS: 36415; 71045; 80053; 82553; 83605; 83735; 83880; 84100; 84484; 85025; 85610; 85730; 87040; 93005

== ENCOUNTER 2020-11-10 22:17 | Inpatient (IN) | payer OTHER ==
[2020-11-10 23:31] LABS: #Eosinphils 0.1 thou/uL (0.0-0.7); #Lymphocytes 1.1 thou/uL (1.20-3.40); #Monocytes 0.6 thou/uL (0.11-0.59); #Neutrophils 4.8 thou/uL (1.40-6.50); %Basophils 0.7 % (0.0-1.0); %Eosinophils 1.8 % (0.0-10.0); %Monocytes 9.6 % (0.0-10.0); %Neutrophils 71.9 % (42.0-75.0); Hemoglobin 8.2 g/dL (14.0-18.0); Mean Corpuscular HGB CONC 32.3 g/dL (32.0-36.0); Mean Corpuscular Hemoglobin 30.1 pg (27.0-31.0); Mean Corpuscular Volume 93.1 fL (78.0-98.0); Mean Platelet Volume 9.8 fL (7.4-10.4); Platelet Count 74 thou/uL (130-400); RBC Distribution Width 19.4 % (11.5-14.5); Red Blood Cell (RBC) Count 2.73 mill/uL (4.70-6.10); White Blood Cell (WBC) Count 6.7 thou/uL (4.8-10.8)
[2020-11-10 23:50] LABS: ALT (SGPT) 10 U/L (8-55); AST (SGOT) 17 U/L (5-34); Albumin 2.6 g/dL (3.5-5.0); Alkaline Phosphatase 168 U/L (40-110); Anion Gap 19 mmol/L (10-20); BUN (Urea Nitrogen) 26 mg/dL (8.9-20.6); Bilirubin, Total 1.2 mg/dL (0.2-1.2); Calc. Creatinine Clearance 0 mL/min (70-130); Calcium 8.1 mg/dL (7.8-10.44); Carbon Dioxide 27 mmol/L (22-29); Chloride 96 mmol/L (98-107); Globulin 4.1 g/dL (2.4-3.5); Glucose 93 mg/dL (70-105); Potassium 4.7 mmol/L (3.5-5.1); Protein, Total 6.7 g/dL (6.0-8.3); Sodium 137 mmol/L (136-145)
--- NOTE | 2020-11-11 00:04 | RAD ---
EXAM: CHEST ONE VIEW HISTORY: Fever. COMPARISON: 11/10/2020 FINDINGS: Postoperative changes related to median sternotomy and cardiac valve replacement are again seen. Card iac silhouette remains enlarged. Again noted are increased interstitial and alveolar opacities within the lungs bilaterally with more confluent opacity at the left lung base. Findings are not sign ificantly changed when compared to prior exam. Small right pleural effusion present. The osseous structures are intact. IMPRESSION: Stable chest with bilateral interstitial and alveolar opacities as well as small right pleural effusi on. Findings may be related to asymmetric pulmonary edema. Infectious process is also a differential consideration.
[2020-11-11 01:13] LABS: SARS-CoV-2 NAA Rapid Test Not Detected (NotDetected)
[2020-11-11 02:38] LABS: Lactic Acid 1.4 mmol/L (0.5-2.2)
[2020-11-11] MEDS ORDERED: cefTRIAXone\\ROCEPHIN 1 GM VIAL ONE (03:01)
[2020-11-11] MEDS ORDERED: Vancomycin 1 GM/200 ML BAG ONE (04:02)
[2020-11-11] MEDS: Vasopressin 20 UNIT, Admixture Fee 1 EACH in Sodium Chloride 0.9% 50 ML IV SCH ×2 (05:54→09:24)
--- NOTE | 2020-11-11 07:35 | CT ---
PRELIMINARY REPORT/DIRECT RADIOLOGY/EMERGENCY AFTER HOURS PROCEDURE: EXAM: CT Abdomen and Pelvis with Intravenous Contrast CLINICAL HISTORY: 25M ESRD on dialysis MWF, presenting for fever and diffuse abdominal pain. Starting a few days ago. R ecently discharged from the hospital TECHNIQUE: Axial computed tomography images of the abdomen and pelvis with intravenous contrast. CONTRAST: With; ISOVUE 370,100mL COMPARISON: CTSR - CT ABDOMEN PELVIS W CON - 10/30/2020 10:13 AM FRONT OFFICE DIRECTOR FINDINGS: TUBES/LINES: A left femoral venous catheter is present. LUNG BASES: Worsening groundglass opacities and atelectasis. Increasing moderate right pleural effusion. Mild c ardiomegaly and status post mitral valvuloplasty. LIVER: Unremarkable. GALLBLADDER AND BILE DUCTS: Redemonstrated vicarious excretion of intravenous contrast within the gallbladder. No calcified stone . No ductal dilation. PANCREAS: Unremarkable. SPLEEN: Unremarkable. ADRENAL GLANDS: Unremarkable. KIDNEYS, URETERS, AND BLADDER: Redemonstrated atrophic kidneys. No ureteral or bladder calculi. STOMACH AND BOWEL: There is a single loop of small bowel within the left upper quadrant that is mildly dilated and fluid -filled, measuring 3.4 cm in diameter. No wall thickening. No CT evidence of colitis or acute diverticulitis. APPENDIX: No CT evidence for appendicitis. PERITONEUM: Large volume ascites without pneumoperitoneum. Redemonstrated calcified mass within the right pelvis likely representing a failed renal transplant. LYMPH NODES: No lymphadenopathy. REPRODUCTIVE: Unremarkable as visualized. VASCULATURE: No aortic aneurysm. BONES: No fracture or suspicious osseous abnormality. Redemonstrated renal osteodystrophy. ABDOMINAL WALL AND SOFT TISSUES: Unremarkable. IMPRESSION: 1. Large volume ascites with a single loop of small bowel within the left upper quadrant that is mil dly dilated and filled. The loop of bowel may reflect focal ileus secondary to adjacent inflammatory changes. Additionally, peritonitis cannot be excluded in the appropriate clinical setti ng. 2. Increase in size of the right pleural effusion, now moderate in size. 3. Worsening groundglass opacities and atelectasis. Superimposed infection or aspiration cannot be excluded in the appropriate clinical setting. 4. Additional findings as described above. ELECTRONICALLY SIGNED BY: Devaughn Maciel MD Nov 11, 2020 3:14:01 AM FRONT OFFICE DIRECTOR FINAL REPORT CT ABDOMEN AND PELVIS WITH CONTRAST: History: Chest pain. Abdominal pain. Difficulty breathing. Comparison: Abdomen and pelvis CT October 30, 2020. Findings/impression: Concordant with the preliminary report. Transcribed Date/Time: 11/11/2020 7:56 AM
[2020-11-11] MEDS ORDERED: Ondansetron ODT 4 MG TAB SL PRN (09:00)
[2020-11-11] MEDS ORDERED: Ondansetron PF 4 MG/2 ML Vial IVP PRN (09:00)
[2020-11-11] MEDS ORDERED: Acetaminophen 325 MG TAB PO PRN (09:00)
[2020-11-11] MEDS: Norepinephrine 8 MG in Dextrose 5% in Water 242 ML IVPB PRN ×2 (09:24→18:04)
[2020-11-11] MEDS: Acetaminophen/Codeine 30-300mg Tablet PO PRN ×2 (09:24→18:04)
--- NOTE | 2020-11-11 11:18 | CON ---
DATE OF CONSULTATION: 11/11/2020 REASON FOR CONSULTATION: Hypotension, pulmonary infiltrates. HISTORY OF PRESENT ILLNESS: This patient just got out of the hospital a few days ago. He is a 25-year-old with end-stage renal disease, requiring hemodialysis. He presented last night with fever and abdominal pain. He is obtunded right now, can't give me much of the way history. PAST MEDICAL HISTORY: 1. End-stage renal disease. 2. Infective endocarditis requiring mitral valve replacement x2. 3. Ascites requiring intermittent paracentesis. 4. Goodpasture disease. 5. Chronic eczema. SOCIAL HISTORY: Does not smoke. Does not drink. Does not use illicit drugs. FAMILY MEDICAL HISTORY: Remarkable for hypertension. OUTPATIENT MEDICATIONS: See chart. ALLERGIES: LORACARBEF. REVIEW OF SYSTEMS: Cannot be obtained secondary to his altered mental status. PHYSICAL EXAMINATION: VITAL SIGNS: Heart rate 77, blood pressure 97/63 on Levophed and vasopressin, O2 saturation 97%, respiratory rate 25. He is also febrile. HEENT: Unremarkable. NECK: No adenopathy or JVD. LUNGS: Coarse rhonchi. CARDIOVASCULAR: S1 and S2, regular. ABDOMEN: Distended with ascites. EXTREMITIES: No clubbing or cyanosis. He has a palpable thrill and shunt in his right upper extremity. LABORATORY DATA: Sodium 137, potassium 4.7, chloride 96, CO2 of 27, BUN 26, creatinine 4.8, glucose 93, lactate 1.4. White blood cell count 6.7, hematocrit 25.4, and platelet count 74 with 71% neutrophils, 16% bands. COVID test was negative. Flu test was negative. ASSESSMENT AND PLAN: 1. Hypotension - cardiogenic versus hypovolemic shock. 2. End-stage renal disease. Plan to check a cortisol level, rule out adrenal insufficiency. 3. Continue vasopressors as needed. 4. Empiric antibiotics. 5. Consider GI consult for repeat paracentesis. 6. 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 Job ID: [id number]
--- NOTE | 2020-11-11 11:19 | CON ---
DATE OF CONSULTATION: REASON FOR CONSULTATION: End-stage renal disease, on maintenance hemodialysis. HISTORY OF PRESENT ILLNESS: A 25-year-old gentleman with recurrent hospitalizations, presented to the hospital for a septic shock. The patient denies any nausea, vomiting, or chest pain. PAST MEDICAL HISTORY: Significant for end-stage disease, hypertension, anemia, history of renal transplant, history of AV fistula, history of a tunneled dialysis catheter, history of mitral valve replacement, history of multiple surgeries for fistula. SOCIAL HISTORY: No alcohol use but has some street or narcotic drug use query. ALLERGIES: REVIEWED. HOME MEDICATIONS: Reviewed. HOSPITAL MEDICATIONS: Reviewed. REVIEW OF SYSTEMS: A 15-point review of system was performed and negative except for positives noted above. HEENT: Eyes intact, no diplopia. Ears: No hearing loss or earache. Nose: No discharge or bleeding. CHEST: No cough or phlegm. ABDOMEN: No nausea or vomiting. GENITOURINARY: No hematuria. No Pimentel catheter. MUSCULOSKELETAL: No low back pain. No joint swelling or pain. NEUROLOGICAL: No syncope. No seizures. SKIN: No complaints of rash or itching. PSYCHIATRIC: No depression. CONSTITUTIONAL: No weight loss or loss of appetite. PHYSICAL EXAMINATION: GENERAL: The patient is awake and alert. VITAL SIGNS: Afebrile, pulse 95, breathing at 16, blood pressure 82/50. HEENT: Head normocephalic and atraumatic. Eyes intact, no ulcers. Nose intact, no ulcers. Ears intact, no ulcers. NECK: Supple. No JVD. CHEST: Symmetrical and clear. CARDIOVASCULAR: Shows S1 and S2, no rub, no murmur. GASTROINTESTINAL: Abdomen is soft, bowel sounds positive. EXTREMITIES: Show no edema or ulcers. SKIN: Shows no rash or petechiae. MUSCULOSKELETAL: Shows no joint swelling or stiffness. GENITOURINARY: Shows no Pimentel or CVA tenderness. NEUROLOGIC: Motor intact. Cranial nerves intact. LABORATORY DATA: Reviewed. ASSESSMENT AND PLAN: 1. Stage 6 chronic kidney disease. Plan: Dialysis per schedule Friday, Friday, Friday. 2. Hypertension, stable. 3. Anemia, stable. 4. Medication based on GFR appropriate. 5. Septic shock management per primary team. Job ID: [id number]
[2020-11-11] MEDS ORDERED: Vancomycin HCl 1.25 GM in Sodium Chloride 0.9% 250 ML 250 ML IVPB SCH (11:30)
[2020-11-11] MEDS ORDERED: Vancomycin HCl 750 MG in Sodium Chloride 0.9% 250 ML 250 ML IVPB SCH ×2 (11:30→13:00)
[2020-11-11] MEDS ORDERED: Vancomycin 1 GM in Premix Bag 1 BAG IVPB SCH (11:30)
[2020-11-11] MEDS ORDERED: HOLD VANCOMYCIN FOR LEVEL >20 FS SCH (11:30)
[2020-11-11] MEDS ORDERED: Vancomycin HCl 500 MG in Sodium Chloride 0.9% 100 ML IVPB SCH (11:30)
[2020-11-11] MEDS ORDERED: Iopamidol-370 76% 500 ML 1 ML ONE (12:06)
[2020-11-11] MEDS: Piperacillin/Tazobactam 2.25 GM in Sodium Chloride 0.9% 100 ML IVPB SCH (13:03)
--- NOTE | 2020-11-11 16:20 | PDOC.HHP ---
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 The patient presented to the hospital with complaints of diffuse abdominal pain and fever over the past 3 days. In the ER, initial work-up revealed evidence of persistent hypotension requiring vasopressors. CT scan of the chest revealed pleural effusion and bila teral infiltrates and CT scan of the abdomen and pelvis revealed the presence of large ascites. Hospitalist ROS - Review of Systems All other systems reviewed; all pertinent +/- noted in HPI/Subj - Medication Medications: Active Medications Generic Name Dose Route Start Last Admin Trade Name Freq PRN Reason Stop Dose Admin Acetaminophen/Codeine Phosphate 1 tab 11/11/20 09:10 11/11/20 09:24 Acetaminophen/Codeine 30-300mg Tablet PO 1 tab Q6H PRN Administration Moderate Pain (4-6) Norepinephrine Bitartrate 8 mg 250 mls @ 0 mls/hr 11/11/20 02:45 11/11/20 09:24 / Dextrose/Water IVPB 250 mls INF PRN Administration TO MAINTAIN MAP > 65 Protocol As Directed Vasopressin 20 unit/ 51 mls @ 0 mls/hr 11/11/20 05:15 11/11/20 09:24 Miscellaneous Medication 1 IV 51 mls each/ Sodium Chloride INF ALANNA Administration Protocol As Directed Piperacillin Sod/Tazobactam 100 mls @ 200 mls/hr 11/11/20 12:00 11/11/20 13:03 Sod 2.25 gm/ Sodium Chloride IVPB 100 mls 0000,1200 ALANNA Administration Hospitalist History - Past Medical History Heme/Onc: reports: Anemia NOS (Anemia of chronic disease requiring frequent blood transfusions) Renal/: reports: Chronic renal insuff (On dialysis, has goodpasture disease with renal transplant history with rejection of renal transplant and currently on dialysis on Friday, Friday and Friday) Dermatology: reports: Eczema (Chronic itching) - Past Surgical History Past Surgical History: reports: Other (Bioprosthetic mitral valve replaced, right kidney transplant, dialysis fistula access) - Family History Other Family History: Mitral valve replacement. - Social History Alcohol: reports: Occassional Drugs: reports: marijuana Occupation: Disabled - Exam General Appearance: awake alert ENT: normocephalic atraumatic Neck: supple, no JVD Heart: RRR Respiratory: normal chest expansion, no tachypnea, rhonchi Gastrointestinal: soft, tender to palpation, distended Neurological: cranial nerve grossly intact, no focal deficits Hospitalist Results - Labs Result Diagrams: 11/12/20 04:19 11/12/20 04:19 Lab results: WBC 6.7 thou/uL (4.8-10.8) 11/10/20 23:18 Hgb 8.2 g/dL (14.0-18.0) L 11/10/20 23:18 Hct 25.4 % (42.0-52.0) L 11/10/20 23:18 MCV 93.1 fL (78.0-98.0) 11/10/20 23:18 Plt Count 74 thou/uL (130-400) L 11/10/20 23:18 Neutrophils % 71.9 % (42.0-75.0) 11/10/20 23:18 Sodium 137 mmol/L (136-145) 11/10/20 23:18 Potassium 4.7 mmol/L (3.5-5.1) 11/10/20 23:18 Chloride 96 mmol/L (98-107) L 11/10/20 23:18 Carbon Dioxide 27 mmol/L (22-29) 11/10/20 23:18 BUN 26 mg/dL (8.9-20.6) H 11/10/20 23:18 Creatinine 4.88 mg/dL (0.7-1.3) H 11/10/20 23:18 Glucose 93 mg/dL (70-105) 11/10/20 23:18 Lactic Acid 1.4 mmol/L (0.5-2.2) 11/11/20 02:12 Calcium 8.1 mg/dL (7.8-10.44) 11/10/20 23:18 Total Bilirubin 1.2 mg/dL (0.2-1.2) 11/10/20 23:18 AST 17 U/L (5-34) 11/10/20 23:18 ALT 10 U/L (8-55) 11/10/20 23:18 Alkaline Phosphatase 168 U/L (40-110) H 11/10/20 23:18 Serum Total Protein 6.7 g/dL (6.0-8.3) 11/10/20 23:18 Albumin 2.6 g/dL (3.5-5.0) L 11/10/20 23:18 Hospitalist H&P A/P - Problem (1) Septic shock Code(s): A41.9 - SEPSIS, UNSPECIFIED ORGANISM; R65.21 - SEVERE SEPSIS WITH SEPTIC SHOCK Status: Acute (2) PNA (pneumonia) Code(s): J18.9 - PNEUMONIA, UNSPECIFIED ORGANISM Status: Acute Qualifiers: Pneumonia type: due to unspecified organism Laterality: bilateral Lung location: lower lobe of lung Qualified Code(s): J18.9 - Pneumonia, unspecified organism (3) Volume overload Code(s): E87.70 - FLUID OVERLOAD, UNSPECIFIED Status: Acute (4) ESRD (end stage renal disease) on dialysis Code(s): N18.6 - END STAGE RENAL DISEASE; Z99.2 - DEPENDENCE ON RENAL DIALYSIS Status: Chronic (5) MRSA bacteremia Code(s): R78.81 - BACTEREMIA; B95.62 - METHICILLIN RESIS STAPH INFCT CAUSING DISEASES CLASSD ELSWHR Status: Chronic - Plan Plan: Patient was admitted to the intensive care unit. Broad-spectrum IV antibiotics were initiated. Culture results are pending. Continue norepinephrine and titrate for MAP greater than 65. Consult GI for diagnostic and therapeutic paracentesis since the patient is in septic shock and will be able to go down to radiology. Nephrology consulted for hemodialysis. Supplemental oxygen as needed.
--- NOTE | 2020-11-11 19:51 | CON ---
DATE OF CONSULTATION: 11/11/2020 REASON FOR CONSULTATION: Sepsis. HISTORY OF PRESENT ILLNESS: A 25-year-old, just recently discharged from the hospital. 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 He had recurrence of the MRSA bacteremia in the beginning of 2019. He left the hospital against medical advice and had to be treated in the outpatient setting through a sliding scale. He had a MICHAEL done later, which showed possible vegetation in prosthetic mitral valve and blood cultures were positive for MRSA on May 08. He was treated with gentamicin, rifampin and vancomycin sliding scale and then in April, he started complaining of abdominal pain, which is diffuse and which I feel is secondary to peritonitis. He has had problems with worsening ascites, requiring large volume paracentesis since and all the subsequent blood cultures have been negative. CTs of abdomen and pelvis have demonstrated edema, subcutaneous fat, small pleural effusion, enlargement of spleen, enlargement of liver without masses and normal parenchyma appearance. He had a diagnostic paracentesis in May that showed 336 WBCs per microliter with 95% mononuclear wbc's. The pathology showed no malignant cells. In June, he had another paracentesis, this time with therapeutic intent. In August, he had a large volume paracentesis with 4 L of dark brown liquid removed. In August, he was readmitted with abdominal pain and had 5 L of fluid removed. In September, again same issue with another large volume paracentesis. He had another paracentesis the previous before last admission with 6 L of hemorrhagic fluid submitted and in the fluid we had 67418 RBCs and 2400 WBCs with 43% neutrophils and 15% lymphocytes. No organisms were grown from culture. In October, he was admitted to [facility]. He was hypotensive and systolic dropped to the mid 70s and improved with IV fluids. He still had abdominal pain there and then he just had a final admission on October 29. This time the ascitic fluid demonstrated 735 WBCs with predominance of mononuclear WBCs and 5700 RBCs with a protein of 4.4, albumin 2.4. All the cultures were negative including the peritoneal fluid cultures. He was treated empirically nonetheless because of the abnormal findings on paracentesis fluid assessment. He had an abdomen and pelvis CT which showed increasing ascites and mild nonspecific distention of the proximal mid small bowel loops which were opacified and the distal small bowel loops were not opacified but continued to show nonspecific distention and the possibility of low-grade small-bowel obstruction. So, he was discharged on November 08 and he went home on sevelamer, labetalol, esomeprazole, ondansetron, gabapentin, clonidine, amitriptyline, Cymbalta, rifampin, saccharomyces, tramadol. According to the patient, his abdominal pain had improved, but once he went home, it immediately recrudesced and only a few days before he was readmitted exactly 3 or 4 days. He presents again to the emergency room. He has at this time fever and diffuse abdominal pain, distention, did not have any cough. Did have some chills, some headaches. He does not have urine output. Did not miss any dialysis. Initial findings, BP 120/90, pulse 99, respirations 26, temperature 102, and O2 saturation 100. PAST MEDICAL HISTORY: 1. 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 Negative cultures associated with other findings suggestive of peritonitis. 2. Dilatation of small bowel. PAST SURGICAL HISTORY: As above. SOCIAL HISTORY: Never smoker. ALLERGIES: LORACARBEF. CURRENT MEDICATIONS: 1. Gabapentin. 2. Vancomycin. 3. Norepinephrine. 4. Zosyn. 5. Vasopressin. PHYSICAL EXAMINATION: VITAL SIGNS: Temperature has decreased since admission. Heart rate 85. O2 saturation 83. SKIN: Shows dilated veins in the right upper extremity from the AV fistula. He has a peripheral IV access. No areas of skin breakdown. No lymphadenopathy. GENERAL: Thin, almost cachectic, temporal wasting. HEENT: Ocular movements conjugate. Pale conjunctivae. Oral cavity unremarkable. Jugular vein distention is noted. LUNGS: With bibasilar inspiratory crackles. Some rhonchi on the right side. HEART: S1, S2 with a soft murmur at the mitral area. ABDOMEN: Markedly distended, tender diffusely. He is able to move extremities equally. NEUROLOGIC: Cognitive function is intact. LABORATORY DATA: 1. White cell count 6.7, hemoglobin 8.2, platelets 74 with 71% neutrophils. Sodium 137, creatinine 4.88. Liver profile normal except for alkaline phosphatase of 168, albumin 2.6. SARS-CoV2 PCR not detected. He had a chest x-ray on the , which showed bilateral interstitial and alveolar opacities and small right pleural effusion. His last echocardiogram is from October 28 and it showed EF 55% to 60%, moderately enlarged right ventricle cavity, severe concentric left ventricular hypertrophy. Bioprosthetic mitral valve, dilated IVC. ASSESSMENT: 1. Goodpasture syndrome with ESRD, on dialysis through AV fistula. 2. MRSA endocarditis mitral valve, treated and re-treated with mitral valve repair done in [place]. 3. Evidence of cardiomyopathy with increased right and left ventricular pressures, dilated IVC. 4. Likely cardiac ascites with possible superimposed inflammatory process, hemorrhagic component is prominent sometimes. 5. Readmission for abdominal distention related to ascites, most likely possibility of infection of the ascitic fluid is considered. DISCUSSION: It looks like the primary reason for the latest admission is related to his ascites, which I think is cardiac in origin plus the end-stage renal disease. His liver parenchyma does not have evidence of cirrhosis and the hemorrhagic component suggests dilated venules and capillaries in the peritoneal membranes. Malignancy is not likely. Superimposed infection is possible, if not likely. The patient needs a repeat paracentesis submission for cell count, protein and cultures. This is somewhat refractory problem and I wonder if an alternate solution might be available to manage this reaccumulation of ascitic fluid that has led to these frequent admissions. Regarding the MRSA bacteremia, it does not appear that it has recurred, but we will continue monitoring blood cultures. It seems that some small bowell loops might be encased in the presumed inflamm peritoneal membranes and an element of sbo might be present. Job ID: [id number] [facility]
[2020-11-11] MEDS: Gabapentin 100 MG CAP PO SCH (21:01)
[2020-11-12] MEDS ORDERED: traMADol HCl 50 MG TAB PO SCH (00:15)
[2020-11-12] MEDS: Piperacillin/Tazobactam 2.25 GM in Sodium Chloride 0.9% 100 ML IVPB SCH ×2 (00:38→12:28)
[2020-11-12 04:41] LABS: #Eosinphils 0.3 thou/uL (0.0-0.7); #Monocytes 0.8 thou/uL (0.11-0.59); #Neutrophils 3.7 thou/uL (1.40-6.50); %Basophils 0.1 % (0.0-1.0); %Eosinophils 5.5 % (0.0-10.0); %Lymphocytes 16.4 % (21.0-51.0); %Monocytes 14.4 % (0.0-10.0); %Neutrophils 63.6 % (42.0-75.0); Hemoglobin 7.2 g/dL (14.0-18.0); Mean Corpuscular HGB CONC 32.2 g/dL (32.0-36.0); Mean Corpuscular Hemoglobin 31.1 pg (27.0-31.0); Mean Corpuscular Volume 96.3 fL (78.0-98.0); Mean Platelet Volume 10.2 fL (7.4-10.4); Platelet Count 107 thou/uL (130-400); RBC Distribution Width 19.2 % (11.5-14.5); Red Blood Cell (RBC) Count 2.32 mill/uL (4.70-6.10); White Blood Cell (WBC) Count 5.8 thou/uL (4.8-10.8)
[2020-11-12 04:53] LABS: Anion Gap 19 mmol/L (10-20); BUN (Urea Nitrogen) 38 mg/dL (8.9-20.6); Calc. Creatinine Clearance 24 mL/min (70-130); Carbon Dioxide 26 mmol/L (22-29); Chloride 96 mmol/L (98-107); Glucose 81 mg/dL (70-105); Potassium 4.9 mmol/L (3.5-5.1); Sodium 136 mmol/L (136-145)
[2020-11-12] MEDS: Acetaminophen/Codeine 30-300mg Tablet PO PRN (05:45)
[2020-11-12] MEDS: Gabapentin 100 MG CAP PO SCH ×2 (09:03→19:38)
[2020-11-12 10:41] LABS: INR-International Normal Ratio 1.6; Prothrombin Time 19.3 sec (12.0-14.7)
[2020-11-12 10:42] LABS: PTT 63.3 sec (22.9-36.1)
--- NOTE | 2020-11-12 12:10 | ULT ---
US Paracentesis with Imaging History: Ascites Comparison: CT prior day Findings: The exam was performed in the patient's room. All questions were answered. Informed consent obtained. Timeout performed. Patient's left lower quadrant was prepped and draped in normal sterile fashion. Using ultrasound guid ance after adequate local anesthesia lidocaine the peritoneal space was accessed. 4 L of fluid drained. Patient tolerated the procedure well without complication. Impression: Technically successful ultrasound guided paracentesis.
[2020-11-12 13:47] LABS: RBC Count-Automated (BF) 3071 /cu.mm; WBC/Nucleated-Auto (BF) 175 uL
[2020-11-12 14:01] LABS: BF Color Yellow; Body Fluid Source Ascites Body Fluid; Clarity Hazy (Clear); Tube # EDTA
[2020-11-12 14:04] LABS: BF Segmented Neutrophils 6 %; Cell Count Non Hematic 67 %; Lymphocytes 27 %
[2020-11-12] MEDS: Morphine 2 MG/ML VIAL SLOW IVP PRN ×2 (14:41→19:39)
[2020-11-12] MEDS: diphenhydrAMINE 25 MG CAP PO PRN (16:18)
--- NOTE | 2020-11-12 16:52 | PDOC.HOSPP ---
- Subjective Encounter Date: 11/12/20 Subjective: The patient is complaining of severe abdominal pain and is asking for IV morphine. - Objective Vital Signs & Weight: Vital Signs (12 hours) Temp Pulse Resp BP Pulse Ox 11/12/20 15:01 98.1 F 90 21 H 127/93 H 99 11/12/20 11:44 98.5 F 88 20 123/90 99 11/12/20 07:14 98 Weight Weight 185 lb 3.013 oz Most Recent Monitor Data Heart Rate from ECG 90 NIBP 116/87 NIBP BP-Mean 96 Respiration from ECG 28 SpO2 98 I&O: 11/11/20 11/12/20 11/13/20 06:59 06:59 06:59 Intake Total 6.6 Balance 2035.6 Result Diagrams: 11/12/20 04:19 11/12/20 04:19 Hospitalist ROS - Medication Medications: Active Medications Generic Name Dose Route Start Last Admin Trade Name Freq PRN Reason Stop Dose Admin Acetaminophen/Codeine Phosphate 1 tab 11/11/20 09:10 11/12/20 05:45 Acetaminophen/Codeine 30-300mg Tablet PO 1 tab Q6H PRN Administration Moderate Pain (4-6) Diphenhydramine HCl 25 mg 11/12/20 14:36 11/12/20 16:18 Diphenhydramine 25 Mg Cap PO 25 mg Q6H PRN Administration Itching & Insomnia Gabapentin 100 mg 11/11/20 21:00 11/12/20 09:03 Gabapentin 100 Mg Cap PO 100 mg BID ALANNA Administration Piperacillin Sod/Tazobactam 100 mls @ 200 mls/hr 11/11/20 12:00 11/12/20 12:28 Sod 2.25 gm/ Sodium Chloride IVPB 100 mls 0000,1200 ALANNA Administration Morphine Sulfate 2 mg 11/12/20 12:50 11/12/20 14:41 Morphine 2 Mg/Ml Vial SLOW IVP 2 mg Q4H PRN Administration Pain (7-10) OR BREAKTHRU PAIN - Exam General Appearance: awake alert ENT: normocephalic atraumatic Neck: supple, no JVD Heart: RRR Respiratory: normal chest expansion, no tachypnea, rhonchi Gastrointestinal: soft, tender to palpation, distended Extremities: no cyanosis Neurological: cranial nerve grossly intact, no focal deficits Hosp A/P (1) Septic shock Code(s): A41.9 - SEPSIS, UNSPECIFIED ORGANISM; R65.21 - SEVERE SEPSIS WITH SEPTIC SHOCK Status: Acute (2) PNA (pneumonia) Code(s): J18.9 - PNEUMONIA, UNSPECIFIED ORGANISM Status: Acute Qualifiers: Pneumonia type: due to unspecified organism Laterality: bilateral Lung location: lower lobe of lung Qualified Code(s): J18.9 - Pneumonia, unspecified organism (3) Volume overload Code(s): E87.70 - FLUID OVERLOAD, UNSPECIFIED Status: Acute (4) ESRD (end stage renal disease) on dialysis Code(s): N18.6 - END STAGE RENAL DISEASE; Z99.2 - DEPENDENCE ON RENAL DIALYSIS Status: Chronic (5) MRSA bacteremia Code(s): R78.81 - BACTEREMIA; B95.62 - METHICILLIN RESIS STAPH INFCT CAUSING DISEASES CLASSD ELSWHR Status: Chronic - Plan Septic shock has resolved. The patient is off vasopressors. Continue broad-spectrum antibiotics pending availability of the cultures and blood and peritoneal fluid. Paracentesis will be done today by interventional radiology. Check fluid albumin, protein, Gram stain, cell count, and cultures. Hemodialysis per nephrology. MRSA bacteremia is less likely per ID.
--- NOTE | 2020-11-12 17:00 | PRG ---
DATE OF SERVICE: 11/12/2020 SUBJECTIVE: The patient had a paracentesis of 4 L removed. This time, the fluid was straw colored. Still having pain there, little bit less than before, but still diffuse tenderness in the abdominal area. No vomiting. Also complains of pain in the coccygeal area since he lost quite a bit of weight. The patient states that this abdominal pain clearly developed plus the accumulation of fluid since he had a heart surgery with mitral valve repair. OBJECTIVE: VITAL SIGNS: He has been afebrile. Blood pressure 120/93, heart rate 90, breathing 20 to 21 times a minute, saturating 99% on 4 L. GENERAL: Chronically ill appearing and appears in some distress from pain in the abdominal area. The abdomen is less distended. RESPIRATORY: Basilar inspiratory crackles. HEART: S1 and S2 with a soft apex murmur, systolic. ABDOMEN: Diffusely tender, mostly slight percussion, will elicit quite a bit of pain. MUSCULOSKELETAL: Cachexia is noted. EXTREMITIES: No edema. LABORATORY DATA: White cell count 5.8, hemoglobin 7.2, platelets 107 with 63% neutrophils. INR 1.6 and transaminases normal. Alkaline phosphatase 168. Peritoneal fluid with 175 wbc's with predominance of lymphocytes, 6% neutrophils. The path review was pending. There is 67 non-hematological cells. Those were macrophages, endothelial, histiocytic, and mesothelial cells. In peritoneal fluid, the protein was 3.6 compared with albumin of 2.6 in the serum, cortisol 15.90. ASSESSMENT AND DISCUSSION: Goodpasture syndrome with end-stage renal disease, on hemodialysis through AV fistula; methicillin-resistant Staphylococcus aureus endocarditis mitral valve, treated and retreated with cardiomyopathy with increased right and left ventricular pressures, dilated IVC; likely ascites from the combination of increased intracavitary cardiac pressures plus end-stage renal disease and a possible superimposed inflammatory process of yet unclear nature. The hemorrhagic component of the ascites is improving. There is clinical peritonitis on exam. This is a difficult problem and may be what we need to do next is would be to evaluate the peritoneal membrane from the inside with a laparoscopy. We will discuss with one of our surgeons regarding the possibility. Job ID: [id number] [facility]TD[facility]
--- NOTE | 2020-11-12 20:14 | PDOC.BPN ---
- Brief Progress Note Encounter Date: 11/12/20 Encounter Time: 13:00 Subjective: Patient had paracentesis today and 3 to 4 L was removed. Patient states that he has abdominal pain. Patient would like to know if there are possible surgical options to prevent recurrence of ascites. Review of systems Gen.: No fever, no chills All the 14 systems reviewed except for the ones mentioned above are negative Physical examination Vital Signs (24 hours) Temp Pulse Resp BP Pulse Ox 11/12/20 15:01 98.1 F 90 21 H 127/93 H 99 11/12/20 11:44 98.5 F 88 20 123/90 99 11/12/20 07:14 98 11/12/20 04:27 98.8 F 89 25 H 119/83 98 11/12/20 00:01 98.5 F 85 22 H 117/86 98 Intake & Output - 24 hours 11/12/20 11/13/20 06:59 06:59 Intake Total 2036.6 1080 Output Total 0 Balance 2036.6 1080 Intake: Intake, IV Amount 986.6 Norepinephrine 8 mg In 570 Dextrose 5% in Water 242 ml @ As Directed IVPB INF PRN Rx#:[id number] Piperacillin/Tazobactam 2 100 .25 gm In Sodium Chloride 0.9% 100 ml @ 200 mls/hr IVPB 0000,1200 [facility] Rx#: [id number] Vancomycin 1 gm In Premix 250 Bag 1 bag @ 200 mls/hr IVPB WILLCALL [facility] Rx#: [id number] Vasopressin 20 unit 66.6 Admixture Fee 1 each In Sodium Chloride 0.9% 50 ml @ As Directed IV INF [facility] Rx#:[id number] Oral 1050 1080 Output: Urine 0 Other: # Bowel Movements 1 0 Constitutional: Patient is in discomfort HEENT: Mucous membranes moist, no icterus Neck: Trachea midline, no lymphadenopathy Heart: Regular rate and rhythm; no murmurs Lungs: Air entry equal bilateral; no wheezes Abdomen: Soft; mild tenderness, sluggish bowel sounds Extremities: 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 noted Neurological: Patient is awake, following commands Skin: No rash, no ulcers Psychological: Not agitated Labs and Imaging reviewed Laboratory Results - last 24 hr 11/12/20 11/12/20 11/12/20 04:19 04:19 10:22 WBC 5.8 RBC 2.32 L Hgb 7.2 L Hct 22.4 L MCV 96.3 MCH 31.1 H MCHC 32.2 RDW 19.2 H Plt Count 107 L MPV 10.2 Neutrophils % 63.6 Lymphocytes % 16.4 L Monocytes % 14.4 H Eosinophils % 5.5 Basophils % 0.1 Neutrophils # 3.7 Lymphocytes # 1.0 L Monocytes # 0.8 H Eosinophils # 0.3 Basophils # 0.0 PT 19.3 H INR 1.6 APTT 63.3 H Sodium 136 Potassium 4.9 Chloride 96 L Carbon Dioxide 26 Anion Gap 19 BUN 38 H Creatinine 5.80 H Estimated GFR (MDRD) 15 Glucose 81 Calcium 7.0 L Fluid Source Fluid Tube Number Fluid Color Fluid Clarity Fluid WBC (Auto) Fluid RBC (Auto) Fluid Seg Neutrophil % Fluid Lymphocytes % Non-Hematological % Fluid Comment Pleural Total Protein 11/12/20 11/12/20 11:30 11:30 WBC RBC Hgb Hct MCV MCH MCHC RDW Plt Count MPV Neutrophils % Lymphocytes % Monocytes % Eosinophils % Basophils % Neutrophils # Lymphocytes # Monocytes # Eosinophils # Basophils # PT INR APTT Sodium Potassium Chloride Carbon Dioxide Anion Gap BUN Creatinine Estimated GFR (MDRD) Glucose Calcium Fluid Source Ascites Body Fluid Fluid Tube Number EDTA Fluid Color Yellow Fluid Clarity Hazy H Fluid WBC (Auto) 175 Fluid RBC (Auto) 3071 Fluid Seg Neutrophil % 6 Fluid Lymphocytes % 27 Non-Hematological % 67 Fluid Comment Note: Pleural Total Protein 3.6 Active Medications Generic Name Dose Route Start Last Admin Trade Name Freq PRN Reason Stop Dose Admin Acetaminophen/Codeine Phosphate 1 tab 11/11/20 09:10 11/12/20 05:45 Acetaminophen/Codeine 30-300mg Tablet PO 1 tab Q6H PRN Administration Moderate Pain (4-6) Diphenhydramine HCl 25 mg 11/12/20 14:36 11/12/20 16:18 Diphenhydramine 25 Mg Cap PO 25 mg Q6H PRN Administration Itching & Insomnia Gabapentin 100 mg 11/11/20 21:00 11/12/20 19:38 Gabapentin 100 Mg Cap PO 100 mg BID ALANNA Administration Piperacillin Sod/Tazobactam 100 mls @ 200 mls/hr 11/11/20 12:00 11/12/20 12:28 Sod 2.25 gm/ Sodium Chloride IVPB 100 mls 0000,1200 ALANNA Administration Vancomycin HCl 1.25 gm/ Sodium 250 mls @ 166.667 mls/hr 11/11/20 11:30 Chloride IVPB WILLCALL ALANNA Vancomycin HCl 1 gm/ Device 200 mls @ 200 mls/hr 11/11/20 11:30 IVPB WILLCALL ALANNA Vancomycin HCl 750 mg/ Sodium 250 mls @ 250 mls/hr 11/11/20 11:30 Chloride IVPB WILLCALL ALANNA Vancomycin HCl 500 mg/ Sodium 100 mls @ 100 mls/hr 11/11/20 11:30 Chloride IVPB WILLCALL ALANNA Miscellaneous Medication 1 each 11/11/20 10:54 Pharmacy To Dose Vanco IVPB .VANCOMYCIN PRN Pharmacy to dose Miscellaneous Medication 1 each 11/11/20 10:54 Pharmacy To Dose Zosyn IVPB .ZOSYN PRN Pharmacy to dose Morphine Sulfate 2 mg 11/12/20 12:50 11/12/20 19:39 Morphine 2 Mg/Ml Vial SLOW IVP 2 mg Q4H PRN Administration Pain (7-10) OR BREAKTHRU PAIN Hold Vancomycin For 0 each 11/11/20 11:30 Level >20 FS .AT DIALYSIS [facility] Assessment and plan CKD stage Hypertension Anemia Septic shock Patient had dialysis on Friday. Anticipate dialysis tomorrow. Patient is currently on Zosyn, vancomycin with dialysis. Patient's blood pressure is stable. ID is recommending possible laparoscopy to evaluate peritonitis. Discussed with RN Thank you for allowing me to participate in the management of this pt
[2020-11-12] MEDS ORDERED: Morphine 2 MG/ML VIAL SLOW IVP SCH (21:45)
[2020-11-13] MEDS: Piperacillin/Tazobactam 2.25 GM in Sodium Chloride 0.9% 100 ML IVPB SCH ×3 (02:15→16:47)
[2020-11-13] MEDS: Morphine 2 MG/ML VIAL SLOW IVP PRN ×5 (03:06→22:30)
[2020-11-13 04:06] LABS: #Eosinphils 0.4 thou/uL (0.0-0.7); #Monocytes 0.7 thou/uL (0.11-0.59); #Neutrophils 3.3 thou/uL (1.40-6.50); %Basophils 0.4 % (0.0-1.0); %Eosinophils 6.7 % (0.0-10.0); %Lymphocytes 18.1 % (21.0-51.0); %Neutrophils 61.8 % (42.0-75.0); Hemoglobin 7.7 g/dL (14.0-18.0); Mean Corpuscular HGB CONC 31.4 g/dL (32.0-36.0); Mean Corpuscular Hemoglobin 29.5 pg (27.0-31.0); Mean Corpuscular Volume 93.8 fL (78.0-98.0); Mean Platelet Volume 9.8 fL (7.4-10.4); Platelet Count 106 thou/uL (130-400); White Blood Cell (WBC) Count 5.4 thou/uL (4.8-10.8)
[2020-11-13 04:16] LABS: Anion Gap 22 mmol/L (10-20); BUN (Urea Nitrogen) 43 mg/dL (8.9-20.6); Calc. Creatinine Clearance 19 mL/min (70-130); Calcium 7.3 mg/dL (7.8-10.44); Carbon Dioxide 22 mmol/L (22-29); Chloride 96 mmol/L (98-107); Glucose 87 mg/dL (70-105); Sodium 135 mmol/L (136-145)
[2020-11-13] MEDS: Gabapentin 100 MG CAP PO SCH ×2 (08:03→22:27)
[2020-11-13 10:08] LABS: Vancomycin, Random 20.4 ug/mL (See Comment)
[2020-11-13] MEDS: Acetaminophen/Codeine 30-300mg Tablet PO PRN (11:24)
--- NOTE | 2020-11-13 12:31 | PRG ---
DATE OF SERVICE: 11/13/2020 SUBJECTIVE: A 25-year-old gentleman being seen for end-stage renal disease. The patient denied nausea, vomiting, or chest pain. PHYSICAL EXAMINATION: GENERAL: The patient is awake and alert. VITAL SIGNS: Afebrile, temperature 100, pulse 101, breathing 16, blood pressure 126/85. HEENT: Head normocephalic and atraumatic. Eyes intact, no ulcers. Nose intact, no ulcers. Ears intact, no ulcers. NECK: Supple. No JVD. CHEST: Symmetrical and clear. CARDIOVASCULAR: Shows S1 and S2, no rub, no murmur. GASTROINTESTINAL: Abdomen is soft, bowel sounds positive. EXTREMITIES: Show no edema or ulcers. SKIN: Shows no rash or petechiae. MUSCULOSKELETAL: Shows no joint swelling or stiffness. GENITOURINARY: Shows no Pimentel or CVA tenderness. NEUROLOGIC: Motor intact. Cranial nerves intact. LABORATORY DATA: Lab show hemoglobin 7.7, potassium 5. ASSESSMENT AND PLAN: 1. Stage 6 chronic kidney disease. Plan dialysis. 2. Hyperkalemia. Plan dialysis. 3. Anemia. Plan transfusion. Medications based on GFR are appropriate. Overall prognosis is very poor. Job ID: [id number]
--- NOTE | 2020-11-13 16:12 | PDOC.HOSPP ---
- Subjective Encounter Date: 11/13/20 Encounter Time: 16:10 Subjective: still has some residual pail min both lateral abd areas - Objective Vital Signs & Weight: Vital Signs (12 hours) Temp Pulse Resp BP Pulse Ox 11/13/20 08:14 98.8 F 11/13/20 07:54 99.9 F H 97 15 132/101 H 99 Weight Weight 185 lb 3.013 oz Most Recent Monitor Data Heart Rate from ECG 90 NIBP 116/87 NIBP BP-Mean 96 Respiration from ECG 28 SpO2 98 I&O: 11/12/20 11/13/20 11/14/20 06:59 06:59 06:59 Intake Total 2036.6 1080 Output Total 0 Balance 2036.6 1080 Result Diagrams: 11/13/20 03:44 11/13/20 03:44 Hospitalist ROS - Medication Medications: Active Medications Generic Name Dose Route Start Last Admin Trade Name Freq PRN Reason Stop Dose Admin Acetaminophen/Codeine Phosphate 1 tab 11/11/20 09:10 11/13/20 11:24 Acetaminophen/Codeine 30-300mg Tablet PO 1 tab Q6H PRN Administration Moderate Pain (4-6) Diphenhydramine HCl 25 mg 11/12/20 14:36 11/12/20 16:18 Diphenhydramine 25 Mg Cap PO 25 mg Q6H PRN Administration Itching & Insomnia Gabapentin 100 mg 11/11/20 21:00 11/13/20 08:03 Gabapentin 100 Mg Cap PO 100 mg BID ALANNA Administration Piperacillin Sod/Tazobactam 100 mls @ 200 mls/hr 11/11/20 12:00 11/13/20 02:15 Sod 2.25 gm/ Sodium Chloride IVPB 100 mls 0000,1200 ALANNA Administration Morphine Sulfate 2 mg 11/12/20 12:50 11/13/20 12:38 Morphine 2 Mg/Ml Vial SLOW IVP 2 mg Q4H PRN Administration Pain (7-10) OR BREAKTHRU PAIN - Exam General Appearance: awake alert Neck: no JVD Heart: RRR, no murmur Respiratory - other findings: bilat rhonchi/rales Gastrointestinal: normal bowel sounds, tender to palpation, distended, voluntary guarding Extremities: no edema Hosp A/P (1) Peritonitis Code(s): K65.9 - PERITONITIS, UNSPECIFIED Status: Acute (2) Abdominal pain Code(s): R10.9 - UNSPECIFIED ABDOMINAL PAIN Status: Acute Qualifiers: Abdominal location: generalized Qualified Code(s): R10.84 - Generalized abdominal pain (3) Anemia of renal disease Code(s): D63.1 - ANEMIA IN CHRONIC KIDNEY DISEASE Status: Chronic (4) Ascites Code(s): R18.8 - OTHER ASCITES Status: Chronic Qualifiers: Ascites type: other type (5) Chronic pain Code(s): G89.29 - OTHER CHRONIC PAIN Status: Chronic Qualifiers: Chronic pain type: chronic pain syndrome Qualified Code(s): G89.4 - Chronic pain syndrome (6) ESRD (end stage renal disease) on dialysis Code(s): N18.6 - END STAGE RENAL DISEASE; Z99.2 - DEPENDENCE ON RENAL DIALYSIS Status: Chronic (7) H/O kidney transplant Status: Chronic (8) H/O mitral valve replacement Code(s): Z95.2 - PRESENCE OF PROSTHETIC HEART VALVE Status: Chronic (9) History of endocarditis Code(s): Z86.79 - PERSONAL HISTORY OF OTHER DISEASES OF THE CIRCULATORY SYSTEM Status: Chronic - Plan cont zosyn/vancomycic cont analgesia discuss with ID
--- NOTE | 2020-11-13 22:49 | RAD ---
EXAM: Single view of the abdomen HISTORY: Abdominal distention with nausea and vomiting COMPARISON: CT abdomen/pelvis 11/11/2020 FINDINGS: Single view of the abdomen shows a nonspecific, nonobstructive bowel gas pattern. No suspi cious calcifications are seen. The bones are unremarkable. A left inguinal catheter is visualized. IMPRESSION: Unremarkable exam
[2020-11-14] MEDS: Acetaminophen/Codeine 30-300mg Tablet PO PRN ×2 (00:06→09:15)
[2020-11-14] MEDS: Morphine 2 MG/ML VIAL SLOW IVP PRN ×6 (02:28→22:06)
[2020-11-14] MEDS: diphenhydrAMINE 25 MG CAP PO PRN (02:41)
[2020-11-14 04:19] LABS: Anion Gap 18 mmol/L (10-20); BUN (Urea Nitrogen) 26 mg/dL (8.9-20.6); Calc. Creatinine Clearance 27 mL/min (70-130); Calcium 7.7 mg/dL (7.8-10.44); Carbon Dioxide 28 mmol/L (22-29); Chloride 95 mmol/L (98-107); Glucose 83 mg/dL (70-105); Potassium 4.4 mmol/L (3.5-5.1); Sodium 137 mmol/L (136-145)
[2020-11-14 05:10] LABS: Hemoglobin 8.4 g/dL (14.0-18.0); Mean Corpuscular HGB CONC 32.3 g/dL (32.0-36.0); Mean Corpuscular Hemoglobin 30.5 pg (27.0-31.0); Mean Corpuscular Volume 94.4 fL (78.0-98.0); Mean Platelet Volume 9.9 fL (7.4-10.4); Platelet Count 105 thou/uL (130-400); RBC Distribution Width 18.4 % (11.5-14.5); Red Blood Cell (RBC) Count 2.75 mill/uL (4.70-6.10); White Blood Cell (WBC) Count 5.4 thou/uL (4.8-10.8)
[2020-11-14 05:11] LABS: Anisocytosis SLIGHT = 6-15 cells (100X) (0-5/hpf); Band 3 % (5-11); Eosinophils 10 % (0-10); Lymphocytes 26 % (21-51); MDiff Complete? YES; Monocytes 11 % (0-10); Neutrophil 50 % (42-75); Platelet Morphology Comment Appears Decreased
[2020-11-14] MEDS: Gabapentin 100 MG CAP PO SCH ×2 (09:09→20:56)
--- NOTE | 2020-11-14 09:25 | PRG ---
DATE OF SERVICE: 11/14/2020 SUBJECTIVE: A 25-year-old gentleman being seen for end-stage renal disease. The patient denies nausea, vomiting, or chest pain. PHYSICAL EXAMINATION: GENERAL: The patient is awake and alert. VITAL SIGNS: Afebrile, pulse 75, breathing at 16, blood pressure was 117/82. HEENT: Head normocephalic and atraumatic. Eyes intact, no ulcers. Nose intact, no ulcers. Ears intact, no ulcers. NECK: Supple. No JVD. CHEST: Symmetrical and clear. CARDIOVASCULAR: Shows S1 and S2, no rub, no murmur. GASTROINTESTINAL: Abdomen is soft, bowel sounds positive. EXTREMITIES: Show no edema or ulcers. SKIN: Shows no rash or petechiae. MUSCULOSKELETAL: Shows no joint swelling or stiffness. GENITOURINARY: Shows no Pimnetel or CVA tenderness. NEUROLOGIC: Motor intact. Cranial nerves intact. LABORATORY DATA: Reviewed. ASSESSMENT AND PLAN: 1. Chronic kidney disease, on dialysis. 2. Hypertension. 3. Anemia, stable. 4. Medication based on GFR, appropriate. Job ID: [id number]
[2020-11-14] MEDS: Piperacillin/Tazobactam 2.25 GM in Sodium Chloride 0.9% 100 ML IVPB SCH (11:44)
--- NOTE | 2020-11-14 11:58 | PDOC.HOSPP ---
- Subjective Encounter Date: 11/14/20 Encounter Time: 11:56 Subjective: sleeping peacefully, when awakened-states he is horrible pain. requests iv benedryl instead of po - Objective Vital Signs & Weight: Vital Signs (12 hours) Temp Pulse Resp BP BP Pulse Ox 11/14/20 11:51 97.9 F 108 H 22 H 133/84 97 11/14/20 08:41 100 11/14/20 07:54 98.9 F 111 H 20 117/82 100 11/14/20 03:49 98.3 F 117 H 21 H 125/87 93 L 11/14/20 00:00 98.8 F 110 H 127/88 Weight Weight 185 lb 3.013 oz Most Recent Monitor Data Heart Rate from ECG 90 NIBP 116/87 NIBP BP-Mean 96 Respiration from ECG 28 SpO2 98 I&O: 11/13/20 11/14/20 11/15/20 06:59 06:59 06:59 Intake Total 1080 2436 Output Total 0 4000 Balance 6662 -5350 Result Diagrams: 11/14/20 03:43 11/14/20 03:43 Hospitalist ROS - Medication Medications: Active Medications Generic Name Dose Route Start Last Admin Trade Name Freq PRN Reason Stop Dose Admin Acetaminophen/Codeine Phosphate 1 tab 11/11/20 09:10 11/14/20 09:15 Acetaminophen/Codeine 30-300mg Tablet PO 1 tab Q6H PRN Administration Moderate Pain (4-6) Diphenhydramine HCl 25 mg 11/12/20 14:36 11/14/20 02:41 Diphenhydramine 25 Mg Cap PO 25 mg Q6H PRN Administration Itching & Insomnia Gabapentin 100 mg 11/11/20 21:00 11/14/20 09:09 Gabapentin 100 Mg Cap PO 100 mg BID ALANNA Administration Piperacillin Sod/Tazobactam 100 mls @ 200 mls/hr 11/11/20 12:00 11/14/20 11:44 Sod 2.25 gm/ Sodium Chloride IVPB 100 mls 0000,1200 ALANNA Administration Morphine Sulfate 2 mg 11/12/20 12:50 11/14/20 10:08 Morphine 2 Mg/Ml Vial SLOW IVP 2 mg Q4H PRN Administration Pain (7-10) OR BREAKTHRU PAIN - Exam General Appearance: awake alert Neck: no JVD Heart: RRR Respiratory: CTAB Gastrointestinal - other findings: will not allow abd to be touched Extremities: no edema Hosp A/P (1) Peritonitis Code(s): K65.9 - PERITONITIS, UNSPECIFIED Status: Acute (2) Abdominal pain Code(s): R10.9 - UNSPECIFIED ABDOMINAL PAIN Status: Acute Qualifiers: Abdominal location: generalized Qualified Code(s): R10.84 - Generalized abdominal pain (3) Anemia of renal disease Code(s): D63.1 - ANEMIA IN CHRONIC KIDNEY DISEASE Status: Chronic (4) Ascites Code(s): R18.8 - OTHER ASCITES Status: Chronic Qualifiers: Ascites type: other type (5) Chronic pain Code(s): G89.29 - OTHER CHRONIC PAIN Status: Chronic Qualifiers: Chronic pain type: chronic pain syndrome Qualified Code(s): G89.4 - Chronic pain syndrome (6) ESRD (end stage renal disease) on dialysis Code(s): N18.6 - END STAGE RENAL DISEASE; Z99.2 - DEPENDENCE ON RENAL DIALYSIS Status: Chronic (7) H/O kidney transplant Status: Chronic (8) H/O mitral valve replacement Code(s): Z95.2 - PRESENCE OF PROSTHETIC HEART VALVE Status: Chronic (9) History of endocarditis Code(s): Z86.79 - PERSONAL HISTORY OF OTHER DISEASES OF THE CIRCULATORY SYSTEM Status: Chronic - Plan cont zosyn/vancomycin cont analgesia discuss with ID
[2020-11-14] MEDS: EPOETIN ALFA-EPBX (ESRD) 10,000 UNIT/ML VIAL SC SCH (12:29)
[2020-11-14] MEDS: Mag-Al 1200 mg/1200 mg/30 ML UDCUP PO PRN (17:03)
[2020-11-15] MEDS: Piperacillin/Tazobactam 2.25 GM in Sodium Chloride 0.9% 100 ML IVPB SCH ×2 (01:04→15:30)
[2020-11-15] MEDS: Morphine 2 MG/ML VIAL SLOW IVP PRN ×5 (03:02→20:35)
[2020-11-15] MEDS: diphenhydrAMINE 25 MG CAP PO PRN ×2 (03:04→12:37)
[2020-11-15 05:09] LABS: #Eosinphils 0.4 thou/uL (0.0-0.7); #Lymphocytes 1.1 thou/uL (1.20-3.40); #Monocytes 0.7 thou/uL (0.11-0.59); #Neutrophils 2.5 thou/uL (1.40-6.50); %Eosinophils 8.8 % (0.0-10.0); %Lymphocytes 23.8 % (21.0-51.0); %Neutrophils 52.4 % (42.0-75.0); Mean Corpuscular HGB CONC 31.4 g/dL (32.0-36.0); Mean Corpuscular Hemoglobin 29.3 pg (27.0-31.0); Mean Corpuscular Volume 93.5 fL (78.0-98.0); Platelet Count 102 thou/uL (130-400); RBC Distribution Width 18.7 % (11.5-14.5); Red Blood Cell (RBC) Count 2.73 mill/uL (4.70-6.10); White Blood Cell (WBC) Count 4.7 thou/uL (4.8-10.8)
[2020-11-15 05:34] LABS: Anion Gap 17 mmol/L (10-20); BUN (Urea Nitrogen) 40 mg/dL (8.9-20.6); Calc. Creatinine Clearance 21 mL/min (70-130); Calcium 8.1 mg/dL (7.8-10.44); Carbon Dioxide 30 mmol/L (22-29); Chloride 93 mmol/L (98-107); Glucose 84 mg/dL (70-105); Potassium 5.4 mmol/L (3.5-5.1); Sodium 135 mmol/L (136-145)
[2020-11-15] MEDS: Acetaminophen/Codeine 30-300mg Tablet PO PRN (05:59)
[2020-11-15] MEDS: Gabapentin 100 MG CAP PO SCH ×2 (07:50→20:34)
--- NOTE | 2020-11-15 10:50 | PRG ---
DATE OF SERVICE: 11/15/2020 SUBJECTIVE: A 25-year-old gentleman, being seen for end-stage renal disease. The patient denies any nausea, vomiting, or chest pain. PHYSICAL EXAMINATION: General: The patient is awake and alert. Vital Signs: Afebrile, pulse 108, breathing at 16, blood pressure 137/102. HEENT: Head normocephalic and atraumatic. Eyes intact, no ulcers. Nose intact, no ulcers. Ears intact, no ulcers. Neck: Supple. No JVD. Chest: Symmetrical and clear. Cardiovascular: Shows S1 and S2, no rub, no murmur. Gastrointestinal: Abdomen is soft, bowel sounds positive. Extremities: Show no edema or ulcers. Skin: Shows no rash or petechiae. Musculoskeletal: Shows no joint swelling or stiffness. Genitourinary: Shows no Pimentel or CVA tenderness. Neurologic: Motor intact. Cranial nerves intact. LABORATORY DATA: Reviewed. IMPRESSION AND PLAN: 1. Stage 6 chronic kidney disease, stable. 2. Hypertension, stable. 3. Anemia, stable. 4. Hyperkalemia. Plan dialysis. Job ID: [id number]
--- NOTE | 2020-11-15 16:50 | PDOC.HOSPP ---
- Subjective Encounter Date: 11/15/20 Encounter Time: 16:47 Subjective: so-so - Objective Vital Signs & Weight: Vital Signs (12 hours) Temp Pulse Resp BP Pulse Ox 11/15/20 15:23 98.4 F 104 H 15 138/107 H 96 11/15/20 07:34 98.4 F 101 H 19 141/100 H 98 Weight Weight 185 lb 3.013 oz Most Recent Monitor Data Heart Rate from ECG 90 NIBP 116/87 NIBP BP-Mean 96 Respiration from ECG 28 SpO2 98 I&O: 11/14/20 11/15/20 11/16/20 06:59 06:59 06:59 Intake Total 2436 4050 Output Total 4000 Balance -1564 4050 Result Diagrams: 11/15/20 04:57 11/15/20 04:57 Hospitalist ROS - Medication Medications: Active Medications Generic Name Dose Route Start Last Admin Trade Name Freq PRN Reason Stop Dose Admin Acetaminophen/Codeine Phosphate 1 tab 11/11/20 09:10 11/15/20 05:59 Acetaminophen/Codeine 30-300mg Tablet PO 1 tab Q6H PRN Administration Moderate Pain (4-6) Al Hydroxide/Mg Hydroxide 30 ml 11/14/20 16:32 11/14/20 17:03 Mag-Al 1200 Mg/1200 Mg/30 Ml Udcup PO 30 ml Q6H PRN Administration Heartburn or Indigestion Diphenhydramine HCl 25 mg 11/12/20 14:36 11/15/20 12:37 Diphenhydramine 25 Mg Cap PO 25 mg Q6H PRN Administration Itching & Insomnia Epoetin John-epbx 20,000 unit 11/14/20 12:00 11/14/20 12:29 Epoetin John-Epbx (Esrd) 10,000 Unit/Ml Vial SC 20,000 unit Q7D ALANNA Administration Gabapentin 100 mg 11/11/20 21:00 11/15/20 07:50 Gabapentin 100 Mg Cap PO 100 mg BID ALANNA Administration Piperacillin Sod/Tazobactam 100 mls @ 200 mls/hr 11/11/20 12:00 11/15/20 15:30 Sod 2.25 gm/ Sodium Chloride IVPB 100 mls 0000,1200 ALANNA Administration Morphine Sulfate 2 mg 11/12/20 12:50 12/23/20 16:35 Morphine 2 Mg/Ml Vial SLOW IVP 2 mg Q4H PRN Administration Pain (7-10) OR BREAKTHRU PAIN - Exam General Appearance: awake alert Neck: no JVD Heart: RRR, II/IV Respiratory: CTAB Gastrointestinal - other findings: unable to exam Extremities: no edema Hosp A/P (1) Peritonitis Code(s): K65.9 - PERITONITIS, UNSPECIFIED Status: Acute (2) Abdominal pain Code(s): R10.9 - UNSPECIFIED ABDOMINAL PAIN Status: Acute Qualifiers: Abdominal location: generalized Qualified Code(s): R10.84 - Generalized abdominal pain (3) Anemia of renal disease Code(s): D63.1 - ANEMIA IN CHRONIC KIDNEY DISEASE Status: Chronic (4) Ascites Code(s): R18.8 - OTHER ASCITES Status: Chronic Qualifiers: Ascites type: other type (5) Chronic pain Code(s): G89.29 - OTHER CHRONIC PAIN Status: Chronic Qualifiers: Chronic pain type: chronic pain syndrome Qualified Code(s): G89.4 - Chronic pain syndrome (6) ESRD (end stage renal disease) on dialysis Code(s): N18.6 - END STAGE RENAL DISEASE; Z99.2 - DEPENDENCE ON RENAL DIALYSIS Status: Chronic (7) H/O kidney transplant Status: Chronic (8) H/O mitral valve replacement Code(s): Z95.2 - PRESENCE OF PROSTHETIC HEART VALVE Status: Chronic (9) History of endocarditis Code(s): Z86.79 - PERSONAL HISTORY OF OTHER DISEASES OF THE CIRCULATORY SYSTEM Status: Chronic - Plan cont zosyn/vancomycin cont analgesia discuss with ID- Dr Grayson recommends laparoscopic abd exam. he will speak with surgery cont routine HD
[2020-11-16] MEDS: Morphine 2 MG/ML VIAL SLOW IVP PRN ×6 (00:16→22:20)
[2020-11-16] MEDS: Piperacillin/Tazobactam 2.25 GM in Sodium Chloride 0.9% 100 ML IVPB SCH ×3 (00:17→22:19)
[2020-11-16] MEDS: Mag-Al 1200 mg/1200 mg/30 ML UDCUP PO PRN ×2 (04:56→14:25)
[2020-11-16] MEDS: diphenhydrAMINE 25 MG CAP PO PRN (04:58)
[2020-11-16 07:52] LABS: #Eosinphils 0.6 thou/uL (0.0-0.7); #Lymphocytes 1.3 thou/uL (1.20-3.40); #Monocytes 0.9 thou/uL (0.11-0.59); #Neutrophils 3.6 thou/uL (1.40-6.50); %Basophils 0.3 % (0.0-1.0); %Eosinophils 9.2 % (0.0-10.0); %Lymphocytes 20.7 % (21.0-51.0); %Monocytes 14.2 % (0.0-10.0); %Neutrophils 55.6 % (42.0-75.0); Hemoglobin 8.6 g/dL (14.0-18.0); Mean Corpuscular HGB CONC 30.9 g/dL (32.0-36.0); Mean Corpuscular Hemoglobin 29.7 pg (27.0-31.0); Mean Corpuscular Volume 96.1 fL (78.0-98.0); Mean Platelet Volume 9.5 fL (7.4-10.4); Platelet Count 126 thou/uL (130-400); RBC Distribution Width 18.6 % (11.5-14.5); Red Blood Cell (RBC) Count 2.88 mill/uL (4.70-6.10); White Blood Cell (WBC) Count 6.4 thou/uL (4.8-10.8)
[2020-11-16] MEDS: Gabapentin 100 MG CAP PO SCH ×2 (08:07→20:46)
[2020-11-16 08:10] LABS: Anion Gap 20 mmol/L (10-20); BUN (Urea Nitrogen) 23 mg/dL (8.9-20.6); Calc. Creatinine Clearance 26 mL/min (70-130); Calcium 8.3 mg/dL (7.8-10.44); Carbon Dioxide 27 mmol/L (22-29); Chloride 96 mmol/L (98-107); Glucose 80 mg/dL (70-105); Sodium 138 mmol/L (136-145)
--- NOTE | 2020-11-16 10:18 | PRG ---
DATE OF SERVICE: 11/16/2020 SUBJECTIVE: 25-year-old gentleman, being seen for end-stage renal disease. The patient denies any nausea, vomiting, or chest pain. OBJECTIVE: General: The patient is awake and alert. Vital Signs: Afebrile, pulse 90, breathing at 16, blood pressure 133/90. HEENT: Head normocephalic and atraumatic. Eyes intact, no ulcers. Nose intact, no ulcers. Ears intact, no ulcers. Neck: Supple. No JVD. Chest: Symmetrical and clear. Cardiovascular: Shows S1 and S2, no rub, no murmur. Gastrointestinal: Abdomen is soft, bowel sounds positive. Extremities: Show no edema or ulcers. Skin: Shows no rash or petechiae. Musculoskeletal: Shows no joint swelling or stiffness. Genitourinary: Shows no Pimentel or CVA tenderness. Neurologic: Motor intact. Cranial nerves intact. LABORATORY DATA: Reviewed. IMPRESSION AND PLAN: 1. Stage 6 chronic kidney disease, stable. 2. Hypertension, stable. 3. Anemia, stable. 4. Medication based on GFR appropriate. Job ID: [id number]
--- NOTE | 2020-11-16 15:16 | PDOC.HOSPP ---
- Subjective Encounter Date: 11/16/20 Subjective: Doing okay. Eating sausage and biscuits. Asking if he can have his Benadryl changed from p.o. to IV. - Objective Vital Signs & Weight: Vital Signs (12 hours) Temp Pulse Resp BP BP Pulse Ox 11/16/20 11:47 98.2 F 110 H 18 153/120 H 98 11/16/20 07:43 98.6 F 113 H 18 133/93 H 100 11/16/20 03:56 99.8 F H 113 H 20 132/95 H 95 Weight Weight 185 lb 3.013 oz Most Recent Monitor Data Heart Rate from ECG 90 NIBP 116/87 NIBP BP-Mean 96 Respiration from ECG 28 SpO2 98 I&O: 11/15/20 11/16/20 11/17/20 06:59 06:59 06:59 Intake Total 4050 7180 Balance 4050 7180 Result Diagrams: 11/16/20 07:35 11/16/20 07:35 Hospitalist ROS - Medication Medications: Active Medications Generic Name Dose Route Start Last Admin Trade Name Freq PRN Reason Stop Dose Admin Acetaminophen/Codeine Phosphate 1 tab 11/11/20 09:10 11/15/20 05:59 Acetaminophen/Codeine 30-300mg Tablet PO 1 tab Q6H PRN Administration Moderate Pain (4-6) Al Hydroxide/Mg Hydroxide 30 ml 11/14/20 16:32 11/16/20 14:25 Mag-Al 1200 Mg/1200 Mg/30 Ml Udcup PO 30 ml Q6H PRN Administration Heartburn or Indigestion Diphenhydramine HCl 25 mg 11/12/20 14:36 11/16/20 04:58 Diphenhydramine 25 Mg Cap PO 25 mg Q6H PRN Administration Itching & Insomnia Epoetin John-epbx 20,000 unit 11/14/20 12:00 11/14/20 12:29 Epoetin John-Epbx (Esrd) 10,000 Unit/Ml Vial SC 20,000 unit Q7D ALANNA Administration Gabapentin 100 mg 11/11/20 21:00 11/16/20 08:07 Gabapentin 100 Mg Cap PO 100 mg BID ALANNA Administration Piperacillin Sod/Tazobactam 100 mls @ 200 mls/hr 11/11/20 12:00 11/16/20 11:52 Sod 2.25 gm/ Sodium Chloride IVPB 100 mls 0000,1200 ALANNA Administration Morphine Sulfate 2 mg 11/12/20 12:50 11/16/20 14:25 Morphine 2 Mg/Ml Vial SLOW IVP 2 mg Q4H PRN Administration Pain (7-10) OR BREAKTHRU PAIN - Exam General Appearance: NAD, awake alert Heart: RRR, no gallops, no rubs, normal peripheral pulses, II/IV Heart - other findings: Tachycardic Respiratory: CTAB, no wheezes, no rales, no ronchi, normal chest expansion, no t achypnea, normal percussion Gastrointestinal: soft, non-distended, normal bowel sounds, tender to palpation (Diffusely), voluntary guarding Extremities: no cyanosis, no clubbing, no edema Extremities - other findings: 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 Hosp A/P (1) Peritonitis Code(s): K65.9 - PERITONITIS, UNSPECIFIED Status: Acute (2) Abdominal pain Code(s): R10.9 - UNSPECIFIED ABDOMINAL PAIN Status: Acute Qualifiers: Abdominal location: generalized Qualified Code(s): R10.84 - Generalized abdominal pain (3) Anemia of renal disease Code(s): D63.1 - ANEMIA IN CHRONIC KIDNEY DISEASE Status: Chronic (4) Ascites Code(s): R18.8 - OTHER ASCITES Status: Chronic Qualifiers: Ascites type: other type (5) Chronic pain Code(s): G89.29 - OTHER CHRONIC PAIN Status: Chronic Qualifiers: Chronic pain type: chronic pain syndrome Qualified Code(s): G89.4 - Chronic pain syndrome (6) ESRD (end stage renal disease) on dialysis Code(s): N18.6 - END STAGE RENAL DISEASE; Z99.2 - DEPENDENCE ON RENAL DIALYSIS Status: Chronic (7) H/O kidney transplant Status: Chronic (8) H/O mitral valve replacement Code(s): Z95.2 - PRESENCE OF PROSTHETIC HEART VALVE Status: Chronic (9) History of endocarditis Code(s): Z86.79 - PERSONAL HISTORY OF OTHER DISEASES OF THE CIRCULATORY SYSTEM Status: Chronic - Plan This point we will continue with the IV antibiotics and pain management. Appears that the plan was to get surgery involved and consider exploratory laparoscopy. Patient has had recurrent/chronic abdominal pain for a long while. Seems like that is reasonable plan at this particular time. Seems to be taking p.o.'s just fine. Do not see indication for changing his Benadryl to IV at this time.
[2020-11-16] MEDS: Acetaminophen/Codeine 30-300mg Tablet PO PRN (20:47)
[2020-11-17] MEDS: Morphine 2 MG/ML VIAL SLOW IVP PRN ×5 (02:18→21:35)
[2020-11-17] MEDS: Mag-Al 1200 mg/1200 mg/30 ML UDCUP PO PRN (04:40)
[2020-11-17] MEDS: diphenhydrAMINE 25 MG CAP PO PRN (07:55)
[2020-11-17] MEDS: Gabapentin 100 MG CAP PO SCH ×2 (07:55→21:35)
[2020-11-17] MEDS: Piperacillin/Tazobactam 2.25 GM in Sodium Chloride 0.9% 100 ML IVPB SCH ×2 (11:07→23:12)
--- NOTE | 2020-11-17 11:10 | PRG ---
DATE OF SERVICE: 11/17/2020 SUBJECTIVE: A 25-year-old gentleman being seen for end-stage renal disease. The patient denies any nausea, vomiting, or chest pain. OBJECTIVE: GENERAL: The patient is awake and alert. VITAL SIGNS: Pulse 101, breathing 16 blood pressure 135/95. HEENT: Head normocephalic and atraumatic. Eyes intact, no ulcers. Nose intact, no ulcers. Ears intact, no ulcers. Neck: Supple. No JVD. Chest: Symmetrical and clear. Cardiovascular: Shows S1 and S2, no rub, no murmur. Gastrointestinal: Abdomen is soft, bowel sounds positive. Extremities: Show no edema or ulcers. Skin: Shows no rash or petechiae. Musculoskeletal: Shows no joint swelling or stiffness. Genitourinary: Shows no Pimentel or CVA tenderness. Neurologic: Motor intact. Cranial nerves intact. LABORATORY DATA: Reviewed. ASSESSMENT AND PLAN: 1. Stage 3 chronic kidney disease. Plan dialysis per schedule. 2. Hypertension, stable. 3. Anemia, stable. 4. Medication based on GFR appropriate. Job ID: [id number]
[2020-11-17] MEDS ORDERED: HYDROcodone/Acetaminophen 5/325 mg Tablet PO PRN (13:47)
[2020-11-17] MEDS: hydrALAZINE 20 MG/ML VIAL SLOW IVP PRN (14:14)
[2020-11-17] MEDS ORDERED: Ondansetron ODT 4 MG TAB PO PRN (14:30)
--- NOTE | 2020-11-17 14:34 | PDOC.HOSPP ---
- Subjective Encounter Date: 11/17/20 Encounter Time: 14:00 Subjective: Patient wants IV Benadryl. I know him very well. He is he is very comfortable; not in any acute distress. During the last hospitalization I consulted palliative therapy. I discussed with the client resource specialist at that time and no good prognosis for this patient overall. - Objective Vital Signs & Weight: Vital Signs (12 hours) Temp Pulse Resp BP BP Pulse Ox 11/17/20 14:14 155/112 H 11/17/20 11:10 98.8 F 104 H 18 157/112 H 100 11/17/20 07:50 98.8 F 107 H 18 152/112 H 98 11/17/20 04:55 98.2 F 101 H 24 H 135/95 H 91 L Weight Weight 185 lb 3.013 oz Most Recent Monitor Data Heart Rate from ECG 90 NIBP 116/87 NIBP BP-Mean 96 Respiration from ECG 28 SpO2 98 I&O: 11/16/20 11/17/20 11/18/20 06:59 06:59 06:59 Intake Total 7180 2400 Output Total 0 Balance 7180 2400 Result Diagrams: 11/16/20 07:35 11/16/20 07:35 Hospitalist ROS - Medication Medications: Active Medications Generic Name Dose Route Start Last Admin Trade Name Freq PRN Reason Stop Dose Admin Acetaminophen/Codeine Phosphate 1 tab 11/11/20 09:10 11/16/20 20:47 Acetaminophen/Codeine 30-300mg Tablet PO 1 tab Q6H PRN Administration Moderate Pain (4-6) Hydrocodone Bitart/Acetaminophen 1 tab 11/17/20 13:47 11/17/20 14:13 Hydrocodone/Acetaminophen 5/325 Mg Tablet PO 1 tab Q6H PRN Administration Pain Al Hydroxide/Mg Hydroxide 30 ml 11/14/20 16:32 11/17/20 04:40 Mag-Al 1200 Mg/1200 Mg/30 Ml Udcup PO 30 ml Q6H PRN Administration Heartburn or Indigestion Diphenhydramine HCl 25 mg 11/12/20 14:36 11/17/20 07:55 Diphenhydramine 25 Mg Cap PO 25 mg Q6H PRN Administration Itching & Insomnia Epoetin John-epbx 20,000 unit 11/14/20 12:00 11/14/20 12:29 Epoetin John-Epbx (Esrd) 10,000 Unit/Ml Vial SC 20,000 unit Q7D ALANNA Administration Gabapentin 100 mg 11/11/20 21:00 11/17/20 07:55 Gabapentin 100 Mg Cap PO 100 mg BID ALANNA Administration Hydralazine HCl 10 mg 11/17/20 13:46 11/17/20 14:14 Hydralazine 20 Mg/Ml Vial SLOW IVP 10 mg Q4H PRN Administration SBP > 150 Piperacillin Sod/Tazobactam 100 mls @ 200 mls/hr 11/11/20 12:00 11/17/20 11:07 Sod 2.25 gm/ Sodium Chloride IVPB 100 mls 0000,1200 ALANNA Administration Morphine Sulfate 2 mg 11/12/20 12:50 11/17/20 11:06 Morphine 2 Mg/Ml Vial SLOW IVP 2 mg Q4H PRN Administration Pain (7-10) OR BREAKTHRU PAIN - Exam General Appearance: NAD, awake alert Eye: PERRL ENT: normocephalic atraumatic Neck: supple Heart: RRR Respiratory: CTAB, normal chest expansion Gastrointestinal: soft, normal bowel sounds Extremities - other findings: AV fistula on his left arm quite disfigured Skin: normal turgor Neurological: cranial nerve grossly intact, no new deficit Psychiatric: A&O x 3 Hosp A/P - Plan Peritonitis (2) Abdominal pain Code(s): R10.9 - UNSPECIFIED ABDOMINAL PAIN Status: Acute Qualifiers: Abdominal location: generalized Qualified Code(s): R10.84 - Generalized abdominal pain (4) Ascites -Ultrasound guided paracentesis performed on 20 November (5) Chronic pain -Exacerbated with addiction behavior now he is requiring IV Benadryl. Will try to keep everything p.o. at this point e (6) ESRD (end stage renal disease) on dialysis -Hemodialysis per schedule. -Dr. Mo following with us (7) H/O kidney transplant -Stable and on dialysis (8) H/O mitral valve replacement Code(s): Z95.2 - PRESENCE OF PROSTHETIC HEART VALVE Status: Chronic (9) History of endocarditis -Cardiomyopathy, with increased right and left ventricular pressure dilated IVC History of MRSA bacteremia Blood cultures performed on 20 November no growth for the last 5 days 25th I reviewed the notes from Dr. Grayson on November 20. It appears that consideration for surgical evaluation but no consult placed. We will check with ID again and if needed will place a consult for surgery tomorrow. Home medications has been reconciled today. I discussed with the client resource specialist at that time and no good prognosis for this patient overall.
[2020-11-17 14:42] LABS: Reference Lab Name KARIUS
[2020-11-17] MEDS: Sevelamer Carbonate 800 MG TAB PO SCH (17:09)
[2020-11-17] MEDS: Amitriptyline HCl 100 MG TAB PO SCH (21:34)
[2020-11-17] MEDS: cloNIDine 0.3 MG TAB PO SCH (21:35)
[2020-11-17] MEDS: Rifampin 300 MG CAP PO SCH (21:36)
[2020-11-17] MEDS: NIFEdipine XL 90 MG TAB PO SCH (21:36)
[2020-11-17] MEDS: Labetalol 100 MG TAB PO SCH (21:36)
[2020-11-17] MEDS: hydrALAZINE 25 MG TAB PO SCH (21:36)
[2020-11-18] MEDS: Morphine 2 MG/ML VIAL SLOW IVP PRN ×4 (01:29→21:25)
[2020-11-18 05:36] LABS: Anion Gap 24 mmol/L (10-20); BUN (Urea Nitrogen) 41 mg/dL (8.9-20.6); Calc. Creatinine Clearance 18 mL/min (70-130); Calcium 8.7 mg/dL (7.8-10.44); Carbon Dioxide 23 mmol/L (22-29); Chloride 93 mmol/L (98-107); Glucose 39 mg/dL (70-105); Potassium 7.6 mmol/L (3.5-5.1); Sodium 132 mmol/L (136-145)
[2020-11-18] MEDS ORDERED: Dextrose 50% Abboject 50 ML SYRINGE ONE (05:43)
[2020-11-18 05:49] LABS: Band 4 % (5-11); Eosinophils 11 % (0-10); Hemoglobin 8.1 g/dL (14.0-18.0); Lymphocytes 17 % (21-51); MDiff Complete? YES; Mean Corpuscular HGB CONC 31.4 g/dL (32.0-36.0); Mean Corpuscular Hemoglobin 29.7 pg (27.0-31.0); Mean Corpuscular Volume 94.6 fL (78.0-98.0); Mean Platelet Volume 9.6 fL (7.4-10.4); Monocytes 14 % (0-10); Neutrophil 50 % (42-75); Platelet Count 160 thou/uL (130-400); Platelet Morphology Comment Appears Adequate; RBC Distribution Width 19.5 % (11.5-14.5); Red Blood Cell (RBC) Count 2.72 mill/uL (4.70-6.10); White Blood Cell (WBC) Count 7.2 thou/uL (4.8-10.8)
[2020-11-18] MEDS: Dextrose 10% in Water 1,000 ML IV SCH (06:40)
[2020-11-18] MEDS: Rifampin 300 MG CAP PO SCH ×2 (09:00→21:15)
[2020-11-18 09:08] LABS: Vancomycin, Trough 8.6 ug/mL
--- NOTE | 2020-11-18 11:29 | PRG ---
DATE OF SERVICE: 11/18/2020 SUBJECTIVE: A 25-year-old gentleman, being seen for end-stage renal disease. The patient denies any nausea, vomiting, or chest pain. PHYSICAL EXAMINATION: General: The patient is awake and alert. Vital Signs: Afebrile, pulse 92, breathing at 16, blood pressure 143/104. HEENT: Head normocephalic and atraumatic. Eyes intact, no ulcers. Nose intact, no ulcers. Ears intact, no ulcers. Neck: Supple. No JVD. Chest: Symmetrical and clear. Cardiovascular: Shows S1 and S2, no rub, no murmur. Gastrointestinal: Abdomen is soft, bowel sounds positive. Extremities: Show no edema or ulcers. Skin: Shows no rash or petechiae. Musculoskeletal: Shows no joint swelling or stiffness. Genitourinary: Shows no Pimentel or CVA tenderness. Neurologic: Motor intact. Cranial nerves intact. LABORATORY DATA: Showed hemoglobin 8.1. Potassium 7.6. ASSESSMENT AND PLAN: 1. Stage 6 chronic kidney disease. Plan dialysis. 2. Hyperkalemia. Plan dialysis. 3. Anemia, stable. 4. Medication based on GFR, appropriate. Job ID: [id number]
[2020-11-18] MEDS ORDERED: Dextrose 5% in Water 1,000 ML IV PRN (12:06)
[2020-11-18] MEDS: Sevelamer Carbonate 800 MG TAB PO SCH ×4 (12:07→19:34)
--- NOTE | 2020-11-18 12:07 | PDOC.HOSPP ---
- Subjective Encounter Date: 11/18/20 Encounter Time: 10:50 Subjective: Patient returned from the dialysis this morning his potassium is very high around 7.6 if he completed the dialysis will repeat his potassium level this afternoon. He also had a hypoglycemia. - Objective Vital Signs & Weight: Vital Signs (12 hours) Temp Pulse BP Pulse Ox 11/18/20 04:00 98.2 F 94 146/102 H 92 L Weight Weight 185 lb 3.013 oz Most Recent Monitor Data Heart Rate from ECG 90 NIBP 116/87 NIBP BP-Mean 96 Respiration from ECG 28 SpO2 98 I&O: 11/17/20 11/18/20 11/19/20 06:59 06:59 06:59 Intake Total 2400 2370 Output Total 0 0 Balance 2400 2370 Result Diagrams: 11/18/20 04:25 11/18/20 04:25 Hospitalist ROS - Medication Medications: Active Medications Generic Name Dose Route Start Last Admin Trade Name Freq PRN Reason Stop Dose Admin Acetaminophen/Codeine Phosphate 1 tab 11/11/20 09:10 11/16/20 20:47 Acetaminophen/Codeine 30-300mg Tablet PO 1 tab Q6H PRN Administration Moderate Pain (4-6) Hydrocodone Bitart/Acetaminophen 1 tab 11/17/20 13:47 11/17/20 14:13 Hydrocodone/Acetaminophen 5/325 Mg Tablet PO 1 tab Q6H PRN Administration Pain Al Hydroxide/Mg Hydroxide 30 ml 11/14/20 16:32 11/17/20 04:40 Mag-Al 1200 Mg/1200 Mg/30 Ml Udcup PO 30 ml Q6H PRN Administration Heartburn or Indigestion Amitriptyline HCl 100 mg 11/17/20 21:00 11/17/20 21:34 Amitriptyline Hcl 100 Mg Tab PO 100 mg QPM ALANNA Administration Clonidine 0.3 mg 11/17/20 21:00 11/17/20 21:35 Clonidine 0.3 Mg Tab PO Not Given TID ALANNA Diphenhydramine HCl 25 mg 11/12/20 14:36 11/17/20 07:55 Diphenhydramine 25 Mg Cap PO 25 mg Q6H PRN Administration Itching & Insomnia Epoetin John-epbx 20,000 unit 11/14/20 12:00 11/14/20 12:29 Epoetin John-Epbx (Esrd) 10,000 Unit/Ml Vial SC 20,000 unit Q7D ALANNA Administration Gabapentin 100 mg 11/11/20 21:00 11/17/20 21:35 Gabapentin 100 Mg Cap PO 100 mg BID ALANNA Administration Hydralazine HCl 10 mg 11/17/20 13:46 11/17/20 14:14 Hydralazine 20 Mg/Ml Vial SLOW IVP 10 mg Q4H PRN Administration SBP > 150 Hydralazine HCl 100 mg 11/17/20 21:00 11/17/20 21:36 Hydralazine 25 Mg Tab PO Not Given TID ALANNA Piperacillin Sod/Tazobactam 100 mls @ 200 mls/hr 11/11/20 12:00 11/17/20 23:12 Sod 2.25 gm/ Sodium Chloride IVPB 100 mls 0000,1200 ALANNA Administration Dextrose/Water 1,000 mls @ 30 mls/hr 11/18/20 06:45 11/18/20 06:40 Dextrose 10% In Water IV 1,000 mls .Q24H ALANNA Administration Labetalol HCl 600 mg 11/17/20 21:00 11/17/20 21:36 Labetalol 100 Mg Tab PO 600 mg BID ALANNA Administration Morphine Sulfate 2 mg 11/12/20 12:50 11/18/20 01:29 Morphine 2 Mg/Ml Vial SLOW IVP 2 mg Q4H PRN Administration Pain (7-10) OR BREAKTHRU PAIN Nifedipine 90 mg 11/17/20 21:00 11/17/20 21:36 Nifedipine Xl 90 Mg Tab PO Not Given BID ALANNA Rifampin 300 mg 11/17/20 21:00 11/17/20 21:36 Rifampin 300 Mg Cap PO 300 mg BID ALANNA Administration Sevelamer Carbonate 2,400 mg 11/17/20 17:00 11/17/20 17:09 Sevelamer Carbonate 800 Mg Tab PO 2,400 mg TID-WM ALANNA Administration - Exam General Appearance: NAD, awake alert Eye: PERRL ENT: normocephalic atraumatic Neck: supple, symmetric Heart: RRR Respiratory: CTAB, normal chest expansion Gastrointestinal: normal bowel sounds Neurological: cranial nerve grossly intact, no focal deficits Psychiatric: A&O x 3 Hosp A/P - Plan Peritonitis (2) Abdominal pain Code(s): R10.9 - UNSPECIFIED ABDOMINAL PAIN Status: Acute Qualifiers: Abdominal location: generalized Qualified Code(s): R10.84 - Generalized abdominal pain (4) Ascites -Ultrasound guided paracentesis performed on 20 November hyperkalemia (5) Chronic pain -Exacerbated with addiction behavior now he is requiring IV Benadryl. Will try to keep everything p.o. at this point e (6) ESRD (end stage renal disease) on dialysis -Hemodialysis per schedule. -Dr. Mo following with us (7) H/O kidney transplant -Stable and on dialysis (8) H/O mitral valve replacement Code(s): Z95.2 - PRESENCE OF PROSTHETIC HEART VALVE Status: Chronic (9) History of endocarditis -Cardiomyopathy, with increased right and left ventricular pressure dilated IVC History of MRSA bacteremia Blood cultures performed on 20 November no growth for the last 5 days 25th I reviewed the notes from Dr. Grayson on November 20. It appears that consideration for surgical evaluation but no consult placed. We will check with ID again and if needed will place a consult for surgery tomorrow. Home medications has been reconciled today. I discussed with the computer systems technician at that time and no good prognosis for this patient overall. Hyperkalemia in a dialysis patient -Status post civil preparedness coordinator dialysis today -Repeating the potassium level this afternoon. Hypoglycemia -Patient is not diabetic and is not on any oral or subcu medications. -We will put him on hypoglycemia protocol. karius test ordered on November 15 and it is a send out lab? -It appears that the test result is back and it stated that no microorganisms detected at significant levels. Will let Dr. Grayson aware of it. -
[2020-11-18] MEDS: Gabapentin 100 MG CAP PO SCH ×2 (12:08→21:13)
[2020-11-18] MEDS: Saccharomyces boulardii 250 MG CAP PO SCH (12:09)
[2020-11-18] MEDS: DULoxetine 60 MG CAP PO SCH (12:10)
[2020-11-18] MEDS: NIFEdipine XL 90 MG TAB PO SCH ×2 (12:10→21:15)
[2020-11-18] MEDS: cloNIDine 0.3 MG TAB PO SCH ×3 (12:13→21:13)
[2020-11-18] MEDS: Labetalol 100 MG TAB PO SCH ×2 (12:13→21:15)
[2020-11-18] MEDS: hydrALAZINE 25 MG TAB PO SCH ×3 (12:13→21:14)
[2020-11-18] MEDS: Piperacillin/Tazobactam 2.25 GM in Sodium Chloride 0.9% 100 ML IVPB SCH ×2 (12:16→23:38)
[2020-11-18 16:33] LABS: Anion Gap 21 mmol/L (10-20); BUN (Urea Nitrogen) 25 mg/dL (8.9-20.6); Calc. Creatinine Clearance 27 mL/min (70-130); Carbon Dioxide 24 mmol/L (22-29); Chloride 97 mmol/L (98-107); Potassium 5.4 mmol/L (3.5-5.1); Sodium 137 mmol/L (136-145)
[2020-11-18 16:34] LABS: Calcium 8.1 mg/dL (7.8-10.44); Glucose 89 mg/dL (70-105)
[2020-11-18] MEDS: Amitriptyline HCl 100 MG TAB PO SCH (21:13)
[2020-11-18] MEDS: diphenhydrAMINE 25 MG CAP PO SCH (22:24)
[2020-11-18] MEDS: Ondansetron PF 4 MG/2 ML Vial IVP PRN (23:37)
[2020-11-19] MEDS: Morphine 2 MG/ML VIAL SLOW IVP PRN ×3 (04:03→15:51)
[2020-11-19] MEDS: diphenhydrAMINE 25 MG CAP PO SCH ×4 (04:03→22:59)
[2020-11-19 04:53] LABS: #Eosinphils 0.6 thou/uL (0.0-0.7); #Lymphocytes 1.1 thou/uL (1.20-3.40); #Monocytes 0.7 thou/uL (0.11-0.59); #Neutrophils 4.4 thou/uL (1.40-6.50); %Basophils 0.3 % (0.0-1.0); %Eosinophils 8.8 % (0.0-10.0); %Lymphocytes 15.8 % (21.0-51.0); %Monocytes 9.8 % (0.0-10.0); %Neutrophils 65.4 % (42.0-75.0); Hemoglobin 7.6 g/dL (14.0-18.0); Mean Corpuscular HGB CONC 31.5 g/dL (32.0-36.0); Mean Corpuscular Hemoglobin 29.9 pg (27.0-31.0); Mean Corpuscular Volume 94.7 fL (78.0-98.0); Platelet Count 146 thou/uL (130-400); RBC Distribution Width 19.7 % (11.5-14.5); Red Blood Cell (RBC) Count 2.56 mill/uL (4.70-6.10); White Blood Cell (WBC) Count 6.7 thou/uL (4.8-10.8)
[2020-11-19 05:12] LABS: Anion Gap 17 mmol/L (10-20); BUN (Urea Nitrogen) 28 mg/dL (8.9-20.6); Calc. Creatinine Clearance 24 mL/min (70-130); Calcium 7.8 mg/dL (7.8-10.44); Carbon Dioxide 29 mmol/L (22-29); Chloride 95 mmol/L (98-107); Glucose 83 mg/dL (70-105); Potassium 4.9 mmol/L (3.5-5.1); Sodium 136 mmol/L (136-145)
[2020-11-19] MEDS: Dextrose 10% in Water 1,000 ML IV SCH (05:48)
[2020-11-19] MEDS ORDERED: cloNIDine 0.3 MG TAB PO SCH (07:47)
[2020-11-19] MEDS: Gabapentin 100 MG CAP PO SCH ×2 (08:58→20:24)
[2020-11-19] MEDS: Sevelamer Carbonate 800 MG TAB PO SCH ×3 (08:59→17:44)
[2020-11-19] MEDS: cloNIDine 0.1 MG TAB PO SCH ×3 (09:00→20:25)
[2020-11-19] MEDS: DULoxetine 60 MG CAP PO SCH (09:00)
[2020-11-19] MEDS: Labetalol 100 MG TAB PO SCH ×2 (09:01→20:26)
[2020-11-19] MEDS: hydrALAZINE 25 MG TAB PO SCH ×3 (09:01→20:25)
[2020-11-19] MEDS: Saccharomyces boulardii 250 MG CAP PO SCH (09:01)
[2020-11-19] MEDS: Rifampin 300 MG CAP PO SCH ×2 (09:02→20:27)
[2020-11-19] MEDS: NIFEdipine XL 90 MG TAB PO SCH ×2 (09:03→20:26)
--- NOTE | 2020-11-19 11:11 | PRG ---
DATE OF SERVICE: SUBJECTIVE: A 25-year-old gentleman being seen for end-stage kidney disease. The patient denied nausea, vomiting, or chest pain. PHYSICAL EXAMINATION: GENERAL: The patient is awake and alert. Vital Signs: Afebrile, pulse 74, breathing at 16, blood pressure 110/75. HEENT: Head normocephalic and atraumatic. Eyes intact, no ulcers. Nose intact, no ulcers. Ears intact, no ulcers. Neck: Supple. No JVD. Chest: Symmetrical and clear. Cardiovascular: Shows S1 and S2, no rub, no murmur. Gastrointestinal: Abdomen is soft, bowel sounds positive. Extremities: Show no edema or ulcers. Skin: Shows no rash or petechiae. Musculoskeletal: Shows no joint swelling or stiffness. Genitourinary: Shows no Pimentel or CVA tenderness. Neurologic: Motor intact. Cranial nerves intact. LABORATORY DATA: Hemoglobin 7.6. Potassium is 4.8. ASSESSMENT: Stage 6 chronic kidney disease, plan dialysis. Hypertension, stable. Anemia, would recommend transfusion with next dialysis. Overall prognosis is poor. Job ID: [id number]
[2020-11-19] MEDS: Piperacillin/Tazobactam 2.25 GM in Sodium Chloride 0.9% 100 ML IVPB SCH ×2 (11:17→22:58)
--- NOTE | 2020-11-19 13:07 | PDOC.HOSPP ---
- Subjective Encounter Date: 11/19/20 Encounter Time: 09:58 Subjective: Patient doing well he is seeing us also. I discussed the possible surgical consult. Patient agreeable for that and willing to do verbal consent if any procedure is planned He is having good p.o. intake and had a good bowel movement. He still complaining of abdominal discomfort - Objective Vital Signs & Weight: Vital Signs (12 hours) Temp Pulse Resp BP BP Pulse Ox 11/19/20 09:03 104 H 110/75 11/19/20 09:01 104 H 110/75 11/19/20 09:00 110/75 11/19/20 08:00 97.5 F L 104 H 18 110/75 99 11/19/20 03:00 98.8 F 90 16 117/74 97 Weight Weight 185 lb 3.013 oz Most Recent Monitor Data Heart Rate from ECG 90 NIBP 116/87 NIBP BP-Mean 96 Respiration from ECG 28 SpO2 98 I&O: 11/18/20 11/19/20 11/20/20 06:59 06:59 06:59 Intake Total 2370 1840 Output Total 0 4000 Balance 2370 -2160 Result Diagrams: 11/19/20 04:37 11/19/20 04:38 Additional Labs: Accuchecks 11/19/20 11/18/20 10:51 19:43 POC Glucose 82 109 H Hospitalist ROS - Medication Medications: Active Medications Generic Name Dose Route Start Last Admin Trade Name Freq PRN Reason Stop Dose Admin Acetaminophen/Codeine Phosphate 1 tab 11/11/20 09:10 11/16/20 20:47 Acetaminophen/Codeine 30-300mg Tablet PO 1 tab Q6H PRN Administration Moderate Pain (4-6) Hydrocodone Bitart/Acetaminophen 1 tab 11/17/20 13:47 11/17/20 14:13 Hydrocodone/Acetaminophen 5/325 Mg Tablet PO 1 tab Q6H PRN Administration Pain Al Hydroxide/Mg Hydroxide 30 ml 11/14/20 16:32 11/17/20 04:40 Mag-Al 1200 Mg/1200 Mg/30 Ml Udcup PO 30 ml Q6H PRN Administration Heartburn or Indigestion Amitriptyline HCl 100 mg 11/17/20 21:00 11/18/20 21:13 Amitriptyline Hcl 100 Mg Tab PO 100 mg QPM ALANNA Administration Clonidine 0.1 mg 11/19/20 09:00 11/19/20 09:00 Clonidine 0.1 Mg Tab PO Not Given TID [facility] Diphenhydramine HCl 25 mg 11/18/20 22:00 11/19/20 11:16 Diphenhydramine 25 Mg Cap PO 25 mg Q6H ALANNA Administration Duloxetine HCl 60 mg 11/18/20 09:00 11/19/20 09:00 Duloxetine 60 Mg Cap PO 60 mg DAILY ALANNA Administration Epoetin John-epbx 20,000 unit 11/14/20 12:00 11/14/20 12:29 Epoetin John-Epbx (Esrd) 10,000 Unit/Ml Vial SC 20,000 unit Q7D [facility] Administration Gabapentin 100 mg 11/11/20 21:00 11/19/20 08:58 Gabapentin 100 Mg Cap PO 100 mg BID ALANNA Administration Hydralazine HCl 10 mg 11/17/20 13:46 11/17/20 14:14 Hydralazine 20 Mg/Ml Vial SLOW IVP 10 mg Q4H PRN Administration SBP > 150 Hydralazine HCl 100 mg 11/17/20 21:00 11/19/20 09:01 Hydralazine 25 Mg Tab PO Not Given TID [facility] Piperacillin Sod/Tazobactam 100 mls @ 200 mls/hr 11/11/20 12:00 11/19/20 11:17 Sod 2.25 gm/ Sodium Chloride IVPB 100 mls 0000,1200 [facility] Administration Labetalol HCl 600 mg 11/17/20 21:00 11/19/20 09:01 Labetalol 100 Mg Tab PO Not Given BID [facility] Morphine Sulfate 2 mg 11/12/20 12:50 11/19/20 08:52 Morphine 2 Mg/Ml Vial SLOW IVP 2 mg Q4H PRN Administration Pain (7-10) OR BREAKTHRU PAIN Nifedipine 90 mg 11/17/20 21:00 11/19/20 09:03 Nifedipine Xl 90 Mg Tab PO Not Given BID [facility] Ondansetron HCl 4 mg 11/13/20 22:27 11/18/20 23:37 Ondansetron Pf 4 Mg/2 Ml Vial IVP 4 mg Q6H PRN Administration Nausea/Vomiting Pantoprazole Sodium 40 mg 11/18/20 09:00 11/19/20 09:01 Pantoprazole 40 Mg Tab PO 40 mg DAILY ALANNA Administration Rifampin 300 mg 11/17/20 21:00 11/19/20 09:02 Rifampin 300 Mg Cap PO 300 mg BID ALANNA Administration Saccharomyces Boulardii 250 mg 11/18/20 09:00 11/19/20 09:01 Saccharomyces Boulardii 250 Mg Cap PO 250 mg DAILY ALANNA Administration Sevelamer Carbonate 2,400 mg 11/17/20 17:00 11/19/20 11:16 Sevelamer Carbonate 800 Mg Tab PO 2,400 mg TID-WM ALANNA Administration - Exam General Appearance: NAD, awake alert General - other findings: Significant LV fistula Eye: PERRL ENT: normocephalic atraumatic Neck: supple, no lymphadenopathy Heart: RRR, normal peripheral pulses Respiratory: CTAB, normal chest expansion Gastrointestinal: soft, normal bowel sounds, distended Neurological: cranial nerve grossly intact, no focal deficits Psychiatric: A&O x 3 Hosp A/P - Plan Peritonitis (2) Abdominal pain Code(s): R10.9 - UNSPECIFIED ABDOMINAL PAIN Status: Acute Qualifiers: Abdominal location: generalized Qualified Code(s): R10.84 - Generalized abdominal pain (4) Ascites -Ultrasound guided paracentesis performed on 20 November hyperkalemia (5) Chronic pain -Exacerbated with addiction behavior now he is requiring IV Benadryl. Will try to keep everything p.o. at this point e (6) ESRD (end stage renal disease) on dialysis -Hemodialysis per schedule. -Dr. Mo following with us (7) H/O kidney transplant -Stable and on dialysis (8) H/O mitral valve replacement Code(s): Z95.2 - PRESENCE OF PROSTHETIC HEART VALVE Status: Chronic (9) History of endocarditis -Cardiomyopathy, with increased right and left ventricular pressure dilated IVC History of MRSA bacteremia Blood cultures performed on 20 November no growth for the last 5 days 25th I reviewed the notes from Dr. Grayson on November 20. It appears that consideration for surgical evaluation but no consult placed. We will check with ID again and if needed will place a consult for surgery tomorrow. Home medications has been reconciled today. I discussed with the forming machine adjuster at that time and no good prognosis for this patient overall. Hyperkalemia in a dialysis patient -Status post concession stand attendant dialysis today -Repeating the potassium level this afternoon. Hypoglycemia -Patient is not diabetic and is not on any oral or subcu medications. -We will put him on hypoglycemia protocol. karius test ordered on November 15 and it is a send out lab? -It appears that the test result is back and it stated that no microorganisms detected at significant levels. Will let Dr. Grayson aware of it. - Ascites from probable etiology of portal hypertension and end-stage renal disease On November 12, he had 4 L of fluid removed Peritoneal fluid study unremarkable; No SBP - white count is around 175 Dr. Grayson recommended surgical consult to evaluate the peritoneal membrane; concern for small bowel loop get tangled with the peritoneum and may cause small bowel obstruction -as an etiology for his abdominal discomfort. Diagnostic laparoscopy per ID. I discussed with Dr. Frank today.
[2020-11-19] MEDS: Amitriptyline HCl 100 MG TAB PO SCH (20:24)
[2020-11-20] MEDS: Morphine 2 MG/ML VIAL SLOW IVP PRN ×3 (02:22→21:16)
[2020-11-20] MEDS: diphenhydrAMINE 25 MG CAP PO SCH ×4 (04:17→21:10)
[2020-11-20 10:19] LABS: #Eosinphils 0.6 thou/uL (0.0-0.7); #Lymphocytes 1.2 thou/uL (1.20-3.40); #Monocytes 0.6 thou/uL (0.11-0.59); #Neutrophils 3.7 thou/uL (1.40-6.50); %Eosinophils 9.9 % (0.0-10.0); %Lymphocytes 19.1 % (21.0-51.0); %Monocytes 9.1 % (0.0-10.0); %Neutrophils 61.9 % (42.0-75.0); Hemoglobin 7.4 g/dL (14.0-18.0); Mean Corpuscular HGB CONC 31.4 g/dL (32.0-36.0); Mean Corpuscular Hemoglobin 29.7 pg (27.0-31.0); Mean Corpuscular Volume 94.6 fL (78.0-98.0); Mean Platelet Volume 9.3 fL (7.4-10.4); Platelet Count 141 thou/uL (130-400); RBC Distribution Width 19.9 % (11.5-14.5)
[2020-11-20 10:25] LABS: Vancomycin, Random 7.5 ug/mL (See Comment)
[2020-11-20 10:26] LABS: Anion Gap 15 mmol/L (10-20); BUN (Urea Nitrogen) 22 mg/dL (8.9-20.6); Calc. Creatinine Clearance 27 mL/min (70-130); Calcium 7.9 mg/dL (7.8-10.44); Carbon Dioxide 28 mmol/L (22-29); Chloride 96 mmol/L (98-107); Glucose 75 mg/dL (70-105); Potassium 4.1 mmol/L (3.5-5.1); Sodium 135 mmol/L (136-145)
--- NOTE | 2020-11-20 10:27 | PDOC.CONS ---
- Consultation Encounter Date: 11/19/20 Encounter Time: 16:35 CHIEF COMPLAINT: Abdominal discomfort. 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 He was just recently discharged from the hospital with similar complaints. His history is significant for multiple admissions for abdominal discomfort and hypotension. 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 He is required multiple paracentesis for control of his ascites which seems to be due to a combination of cardiac dysfunction and end-stage renal disease. It has been suggested for the patient to undergo diagnostic laparoscopy in an attempt to determine the etiology of his abdominal discomfort. PAST MEDICAL HISTORY: Goodpasture syndrome End-stage renal disease Cardiac dysfunction PAST SURGICAL HISTORY: Kidney transplant Multiple paracentesis Mitral valve replacement SOCIAL HISTORY Never smoker, denies illicit drug use, endorses occasional alcohol consumption. ALLERGIES: Loracarbef PHYSICAL EXAM: Vital Signs: HR 110 BP 133/88 T 97.5 RR 18 SpO2 [ ] General: Alert and oriented, mild distress due to abdominal discomfort ENT: Sclera anicteric, pupils equal and reactive, mucous membranes dry Neck: Trachea midline Cardiovascular: Normal sinus tachycardia Pulmonary: Normal respiratory effort Abdominal: Soft, distended, positive fluid wave, general tenderness to palpation (seems to be exaggerated by patient) Genitourinary: Normal anatomy Rectal: Deferred Integument: Severe excoriation due to eczema Musculoskeletal: No gross deformities or edema, normal range of motion. 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 Multiple scars from other fistula. LABORATORY: Laboratory analysis reviewed and demonstrates a white blood cell count of 6.7 with no shift or bandemia. Hemoglobin 7.6. Elevated PT at 19.3 and a PT at 63.3. INR 1.6. Abdominal fluid cytology reviewed and is grossly negative. IMAGING: Computed tomography abdomen reviewed as well as radiologist rotation. Shows dilated small bowel loops with no transition point and large volume ascites. Calcified transplant kidney. 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 These complaints have been present over multiple admissions over a number of years. The etiology is unclear, is complicated by the patient's questionable compliance and possible drug-seeking behavior. PLAN: It is very unlikely to discover an etiology for his abdominal discomfort surgically they could not be determined through the multiple CT scans the patient is undergone and his most recent cytology of his abdominal fluid. Given his overall condition, the risk of a surgical procedure does not outweigh the benefit of exploration. We will sign off. Please call for any further quest ions.
[2020-11-20] MEDS: Ondansetron PF 4 MG/2 ML Vial IVP PRN (12:56)
[2020-11-20] MEDS: Sevelamer Carbonate 800 MG TAB PO SCH ×4 (13:10→17:50)
[2020-11-20] MEDS: DULoxetine 60 MG CAP PO SCH (13:11)
[2020-11-20] MEDS: Gabapentin 100 MG CAP PO SCH ×2 (13:11→21:10)
[2020-11-20] MEDS: cloNIDine 0.1 MG TAB PO SCH ×3 (13:11→21:11)
[2020-11-20] MEDS: Saccharomyces boulardii 250 MG CAP PO SCH (13:12)
[2020-11-20] MEDS: Piperacillin/Tazobactam 2.25 GM in Sodium Chloride 0.9% 100 ML IVPB SCH (13:12)
[2020-11-20] MEDS: NIFEdipine XL 90 MG TAB PO SCH ×2 (13:49→21:12)
[2020-11-20] MEDS: hydrALAZINE 25 MG TAB PO SCH ×3 (13:49→21:11)
[2020-11-20] MEDS: Labetalol 100 MG TAB PO SCH ×2 (13:49→21:12)
[2020-11-20] MEDS: Rifampin 300 MG CAP PO SCH ×2 (13:50→21:10)
--- NOTE | 2020-11-20 14:59 | PDOC.HOSPP ---
- Subjective Encounter Date: 11/20/20 Encounter Time: 09:30 Subjective: Patient iodine his baseline. He dejected taking my blood pressure medication last evening. His abdominal is distended and tender for palpation. Surgery evaluated him no surgical intervention. I also reviewed the GI consult that was done in June 2020. it does not appear they have much to offer in terms of his ongoing abdominal distention. Right femoral line area discharge. We will remove the central line send the tip for the culture. - Objective Vital Signs & Weight: Vital Signs (12 hours) Temp Pulse Resp BP Pulse Ox 11/20/20 11:15 98.2 F 98 16 129/85 94 L 11/20/20 07:50 98.4 F 103 H 18 133/87 94 L 11/20/20 04:17 97.5 F L 105 H 18 132/91 H 94 L Weight Weight 175 lb 7.807 oz Most Recent Monitor Data Heart Rate from ECG 90 NIBP 116/87 NIBP BP-Mean 96 Respiration from ECG 28 SpO2 98 I&O: 11/19/20 11/20/20 11/21/20 06:59 06:59 06:59 Intake Total 1840 2380 Output Total 4000 Balance -2160 2380 Result Diagrams: 11/20/20 08:54 11/20/20 08:54 Additional Labs: Accuchecks 11/20/20 11/20/20 11/19/20 12:22 06:16 20:53 POC Glucose 66 L 104 H 59 L* 11/19/20 17:05 POC Glucose 102 H Hospitalist ROS - Medication Medications: Active Medications Generic Name Dose Route Start Last Admin Trade Name Lico PRN Reason Stop Dose Admin Acetaminophen/Codeine Phosphate 1 tab 11/11/20 09:10 11/16/20 20:47 Acetaminophen/Codeine 30-300mg Tablet PO 1 tab Q6H PRN Administration Moderate Pain (4-6) Hydrocodone Bitart/Acetaminophen 1 tab 11/17/20 13:47 11/17/20 14:13 Hydrocodone/Acetaminophen 5/325 Mg Tablet PO 1 tab Q6H PRN Administration Pain Al Hydroxide/Mg Hydroxide 30 ml 11/14/20 16:32 11/17/20 04:40 Mag-Al 1200 Mg/1200 Mg/30 Ml Udcup PO 30 ml Q6H PRN Administration Heartburn or Indigestion Amitriptyline HCl 100 mg 11/17/20 21:00 11/19/20 20:24 Amitriptyline Hcl 100 Mg Tab PO 100 mg QPM ALANNA Administration Clonidine 0.1 mg 11/19/20 09:00 11/20/20 13:11 Clonidine 0.1 Mg Tab PO Not Given TID ALANNA Diphenhydramine HCl 25 mg 11/18/20 22:00 11/20/20 13:12 Diphenhydramine 25 Mg Cap PO 25 mg Q6H ALANNA Administration Duloxetine HCl 60 mg 11/18/20 09:00 11/20/20 13:11 Duloxetine 60 Mg Cap PO 60 mg DAILY ALANNA Administration Epoetin John-epbx 20,000 unit 11/14/20 12:00 11/14/20 12:29 Epoetin John-Epbx (Esrd) 10,000 Unit/Ml Vial SC 20,000 unit Q7D ALANNA Administration Gabapentin 100 mg 11/11/20 21:00 11/20/20 13:11 Gabapentin 100 Mg Cap PO 100 mg BID ALANNA Administration Hydralazine HCl 10 mg 11/17/20 13:46 11/17/20 14:14 Hydralazine 20 Mg/Ml Vial SLOW IVP 10 mg Q4H PRN Administration SBP > 150 Hydralazine HCl 100 mg 11/17/20 21:00 11/20/20 13:49 Hydralazine 25 Mg Tab PO Not Given TID [facility] Piperacillin Sod/Tazobactam 100 mls @ 200 mls/hr 11/11/20 12:00 11/20/20 13:12 Sod 2.25 gm/ Sodium Chloride IVPB 100 mls 0000,1200 ALANNA Administration Labetalol HCl 600 mg 11/17/20 21:00 11/20/20 13:49 Labetalol 100 Mg Tab PO Not Given BID [facility] Morphine Sulfate 2 mg 11/12/20 12:50 11/20/20 12:51 Morphine 2 Mg/Ml Vial SLOW IVP 2 mg Q4H PRN Administration Pain (7-10) OR BREAKTHRU PAIN Nifedipine 90 mg 11/17/20 21:00 11/20/20 13:49 Nifedipine Xl 90 Mg Tab PO Not Given BID [facility] Ondansetron HCl 4 mg 11/13/20 22:27 11/20/20 12:56 Ondansetron Pf 4 Mg/2 Ml Vial IVP 4 mg Q6H PRN Administration Nausea/Vomiting Pantoprazole Sodium 40 mg 11/18/20 09:00 11/20/20 13:12 Pantoprazole 40 Mg Tab PO 40 mg DAILY ALANNA Administration Rifampin 300 mg 11/17/20 21:00 11/20/20 13:50 Rifampin 300 Mg Cap PO Not Given BID ALANNA Saccharomyces Boulardii 250 mg 11/18/20 09:00 11/20/20 13:12 Saccharomyces Boulardii 250 Mg Cap PO 250 mg DAILY ALANNA Administration Sevelamer Carbonate 2,400 mg 11/17/20 17:00 11/20/20 13:10 Sevelamer Carbonate 800 Mg Tab PO 2,400 mg TID-WM ALANNA Administration - Exam General Appearance: NAD, awake alert Eye: PERRL ENT: normocephalic atraumatic Neck: supple Heart: RRR Respiratory: CTAB, normal chest expansion Gastrointestinal: soft, tender to palpation, distended Neurological: cranial nerve grossly intact, no focal deficits Psychiatric: A&O x 3 Hosp A/P - Plan Peritonitis (2) Abdominal pain Code(s): R10.9 - UNSPECIFIED ABDOMINAL PAIN Status: Acute Qualifiers: Abdominal location: generalized Qualified Code(s): R10.84 - Generalized abdominal pain (4) Ascites -Ultrasound guided paracentesis performed on 20 November hyperkalemia (5) Chronic pain -Exacerbated with addiction behavior now he is requiring IV Benadryl. Will try to keep everything p.o. at this point e (6) ESRD (end stage renal disease) on dialysis -Hemodialysis per schedule. -Dr. Mo following with us (7) H/O kidney transplant -Stable and on dialysis (8) H/O mitral valve replacement Code(s): Z95.2 - PRESENCE OF PROSTHETIC HEART VALVE Status: Chronic (9) History of endocarditis -Cardiomyopathy, with increased right and left ventricular pressure dilated IVC History of MRSA bacteremia Blood cultures performed on 20 November no growth for the last 5 days 25th I reviewed the notes from Dr. Grayson on November 20. It appears that consideration for surgical evaluation but no consult placed. We will check with ID again and if needed will place a consult for surgery tomorrow. Home medications has been reconciled today. I discussed with the pit manager at that time and no good prognosis for this patient overall. Hyperkalemia in a dialysis patient -Status post heel cementer machine dialysis today -Repeating the potassium level this afternoon. Hypoglycemia -Patient is not diabetic and is not on any oral or subcu medications. -We will put him on hypoglycemia protocol. karius test ordered on November 15 and it is a send out lab? -It appears that the test result is back and it stated that no microorganisms detected at significant levels. Will let Dr. Grayson aware of it. - Ascites from probable etiology of portal hypertension and end-stage renal disease On November 12, he had 4 L of fluid removed Peritoneal fluid study unremarkable; No SBP - white count is around 175 Dr. Grayson recommended surgical consult to evaluate the peritoneal membranes; concern for small bowel loop get tangled with the peritoneum and may cause small bowel obstruction -as an etiology for his abdominal discomfort. Diagnostic laparoscopy per ID. I discussed with Dr. Frank today. Surgery evaluated him .no surgical intervention. I also reviewed the GI consult that was done in June 2020. it does not appear they have much to offer in terms of his ongoing abdominal distention. We ran out of medical interventions at this point and for the most part supportive measures only at this point. Right femoral line area discharge. We will remove the central line send the tip for the culture. Patient already receiving vancomycin and Zosyn
--- NOTE | 2020-11-20 17:00 | PDOC.BPN ---
- Brief Progress Note Encounter Date: 11/20/20 Encounter Time: 17:00 Subjective: Patient is seen in the room. He is complaining of abdominal pain. He had hemodialysis today, patient requested to come off the machine 10 minutes earlier before completion Review of systems Gen.: No fever, no chills All the 14 systems reviewed except for the ones mentioned above are negative Physical examination Vital Signs (24 hours) Temp Pulse Resp BP Pulse Ox 11/20/20 15:19 98.7 F 111 H 16 145/103 H 100 11/20/20 11:15 98.2 F 98 16 129/85 94 L 11/20/20 07:50 98.4 F 103 H 18 133/87 94 L 11/20/20 04:17 97.5 F L 105 H 18 132/91 H 94 L Intake & Output - 24 hours 11/20/20 11/21/20 06:59 06:59 Intake Total 2380 1300 Output Total 0 Balance 2380 1300 Weight 175 lb 7.807 oz Intake: Intake, IV Amount 220 100 Oral 2160 1200 Output: Urine 0 Other: # Bowel Movements 1 2 Constitutional: Patient is in discomfort and in pain HEENT: Mucous membranes moist, no icterus Neck: Trachea midline, no lymphadenopathy Heart: Regular rate and rhythm; no murmurs Lungs: Air entry equal bilateral; no wheezes Abdomen: Soft; distended, mild tenderness to palpate, bowel sounds present Extremities: 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 Neurological: Patient is awake, following commands Skin: No rash, no ulcers Psychological: Not agitated Labs and Imaging reviewed Laboratory Results - last 24 hr 11/19/20 11/19/20 11/20/20 17:05 20:53 06:16 WBC RBC Hgb Hct MCV MCH MCHC RDW Plt Count MPV Neutrophils % Lymphocytes % Monocytes % Eosinophils % Basophils % Neutrophils # Lymphocytes # Monocytes # Eosinophils # Basophils # Sodium Potassium Chloride Carbon Dioxide Anion Gap BUN Creatinine Estimated GFR (MDRD) Glucose POC Glucose 102 H 59 L* 104 H Calcium Random Vancomycin 11/20/20 11/20/20 11/20/20 08:54 08:54 08:54 WBC 6.0 RBC 2.50 L Hgb 7.4 L Hct 23.7 L MCV 94.6 MCH 29.7 MCHC 31.4 L RDW 19.9 H Plt Count 141 MPV 9.3 Neutrophils % 61.9 Lymphocytes % 19.1 L Monocytes % 9.1 Eosinophils % 9.9 Basophils % 0.0 Neutrophils # 3.7 Lymphocytes # 1.2 Monocytes # 0.6 H Eosinophils # 0.6 Basophils # 0.0 Sodium 135 L Potassium 4.1 Chloride 96 L Carbon Dioxide 28 Anion Gap 15 BUN 22 H Creatinine 4.72 H Estimated GFR (MDRD) 19 Glucose 75 POC Glucose Calcium 7.9 Random Vancomycin 7.5 11/20/20 11/20/20 12:22 20:40 WBC RBC Hgb Hct MCV MCH MCHC RDW Plt Count MPV Neutrophils % Lymphocytes % Monocytes % Eosinophils % Basophils % Neutrophils # Lymphocytes # Monocytes # Eosinophils # Basophils # Sodium Potassium Chloride Carbon Dioxide Anion Gap BUN Creatinine Estimated GFR (MDRD) Glucose POC Glucose 66 L 86 Calcium Random Vancomycin Active Medications Generic Name Dose Route Start Last Admin Trade Name Freq PRN Reason Stop Dose Admin Acetaminophen/Codeine Phosphate 1 tab 11/11/20 09:10 11/16/20 20:47 Acetaminophen/Codeine 30-300mg Tablet PO 1 tab Q6H PRN Administration Moderate Pain (4-6) Hydrocodone Bitart/Acetaminophen 1 tab 11/17/20 13:47 11/17/20 14:13 Hydrocodone/Acetaminophen 5/325 Mg Tablet PO 1 tab Q6H PRN Administration Pain Al Hydroxide/Mg Hydroxide 30 ml 11/14/20 16:32 11/17/20 04:40 Mag-Al 1200 Mg/1200 Mg/30 Ml Udcup PO 30 ml Q6H PRN Administration Heartburn or Indigestion Amitriptyline HCl 100 mg 11/17/20 21:00 11/20/20 21:11 Amitriptyline Hcl 100 Mg Tab PO 100 mg QPM ALANNA Administration Clonidine 0.1 mg 11/19/20 09:00 11/20/20 21:11 Clonidine 0.1 Mg Tab PO Not Given TID ALANNA Dextrose/Water 25 gm 11/18/20 12:06 Dextrose 50% Abboject 50 Ml Syringe SLOW IVP PRN PRN Hypoglycemia Diphenhydramine HCl 25 mg 11/18/20 22:00 11/20/20 21:10 Diphenhydramine 25 Mg Cap PO 25 mg Q6H ALANNA Administration Duloxetine HCl 60 mg 11/18/20 09:00 11/20/20 13:11 Duloxetine 60 Mg Cap PO 60 mg DAILY ALANNA Administration Epoetin John-epbx 20,000 unit 11/14/20 12:00 11/14/20 12:29 Epoetin John-Epbx (Esrd) 10,000 Unit/Ml Vial SC 20,000 unit Q7D ALANNA Administration Gabapentin 100 mg 11/11/20 21:00 11/20/20 21:10 Gabapentin 100 Mg Cap PO 100 mg BID ALANNA Administration Glucagon 1 mg 11/18/20 12:06 Glucagon 1 Mg/Ml Vial IM PRN PRN Hypoglycemia Hydralazine HCl 10 mg 11/17/20 13:46 11/17/20 14:14 Hydralazine 20 Mg/Ml Vial SLOW IVP 10 mg Q4H PRN Administration SBP > 150 Hydralazine HCl 100 mg 11/17/20 21:00 11/20/20 21:11 Hydralazine 25 Mg Tab PO Not Given TID ALANNA Piperacillin Sod/Tazobactam 100 mls @ 200 mls/hr 11/11/20 12:00 11/20/20 13:12 Sod 2.25 gm/ Sodium Chloride IVPB 100 mls 0000,1200 ALANNA Administration Vancomycin HCl 1.25 gm/ Sodium 250 mls @ 166.667 mls/hr 11/11/20 11:30 Chloride IVPB WILLCALL ALANNA Vancomycin HCl 1 gm/ Device 200 mls @ 200 mls/hr 11/11/20 11:30 IVPB WILLCALL ALANNA Vancomycin HCl 750 mg/ Sodium 250 mls @ 250 mls/hr 11/11/20 11:30 Chloride IVPB WILLCALL ALANNA Vancomycin HCl 500 mg/ Sodium 100 mls @ 100 mls/hr 11/11/20 11:30 Chloride IVPB WILLCALL ALANNA Dextrose/Water 1,000 mls @ 0 mls/hr 11/18/20 12:06 D5w IV .Q0M PRN Hypoglycemia As Directed Labetalol HCl 600 mg 11/17/20 21:00 11/20/20 21:12 Labetalol 100 Mg Tab PO Not Given BID [facility] Miscellaneous Medication 1 each 11/11/20 10:54 Pharmacy To Dose Vanco IVPB .VANCOMYCIN PRN Pharmacy to dose Miscellaneous Medication 1 each 11/11/20 10:54 Pharmacy To Dose Zosyn IVPB .ZOSYN PRN Pharmacy to dose Morphine Sulfate 2 mg 11/12/20 12:50 11/20/20 21:16 Morphine 2 Mg/Ml Vial SLOW IVP 2 mg Q4H PRN Administration Pain (7-10) OR BREAKTHRU PAIN Nifedipine 90 mg 11/17/20 21:00 11/20/20 21:12 Nifedipine Xl 90 Mg Tab PO Not Given BID ALANNA Hold Vancomycin For 0 each 11/11/20 11:30 Level >20 FS .AT DIALYSIS [facility] Ondansetron HCl 4 mg 11/13/20 22:27 11/20/20 12:56 Ondansetron Pf 4 Mg/2 Ml Vial IVP 4 mg Q6H PRN Administration Nausea/Vomiting Ondansetron HCl 4 mg 11/17/20 14:30 Ondansetron Odt 4 Mg Tab PO Q6H PRN Nausea/Vomiting Pantoprazole Sodium 40 mg 11/18/20 09:00 11/20/20 13:12 Pantoprazole 40 Mg Tab PO 40 mg DAILY ALANNA Administration Rifampin 300 mg 11/17/20 21:00 11/20/20 21:10 Rifampin 300 Mg Cap PO 300 mg BID ALANNA Administration Saccharomyces Boulardii 250 mg 11/18/20 09:00 11/20/20 13:12 Saccharomyces Boulardii 250 Mg Cap PO 250 mg DAILY ALANNA Administration Sevelamer Carbonate 2,400 mg 11/17/20 17:00 11/20/20 17:50 Sevelamer Carbonate 800 Mg Tab PO Not Given TID-[facility] Assessment and plan CKD stage Hypertension Anemia Secondary hyperparathyroidism Abdominal pain -Patient had hemodialysis today with 3 L UF. He was evaluated with general surgery for possible diagnostic laparoscopy who recommended nonsurgical management. Patient's blood pressure is stable, he is on clonidine, hydralazine, labetalol and Procardia. Continue to monitor hemoglobin. Continue with sevelamer.
[2020-11-20] MEDS: Amitriptyline HCl 100 MG TAB PO SCH (21:11)
[2020-11-21] MEDS: Piperacillin/Tazobactam 2.25 GM in Sodium Chloride 0.9% 100 ML IVPB SCH ×2 (01:11→12:25)
[2020-11-21] MEDS: Morphine 2 MG/ML VIAL SLOW IVP PRN ×5 (01:59→20:41)
[2020-11-21] MEDS: diphenhydrAMINE 25 MG CAP PO SCH ×4 (05:07→20:39)
[2020-11-21 06:13] LABS: #Eosinphils 0.5 thou/uL (0.0-0.7); #Lymphocytes 1.2 thou/uL (1.20-3.40); #Monocytes 0.5 thou/uL (0.11-0.59); #Neutrophils 4.1 thou/uL (1.40-6.50); %Basophils 0.5 % (0.0-1.0); %Eosinophils 8.2 % (0.0-10.0); %Lymphocytes 19.2 % (21.0-51.0); %Monocytes 8.4 % (0.0-10.0); %Neutrophils 63.8 % (42.0-75.0); Hemoglobin 7.7 g/dL (14.0-18.0); Mean Corpuscular HGB CONC 31.9 g/dL (32.0-36.0); Mean Corpuscular Hemoglobin 30.5 pg (27.0-31.0); Mean Corpuscular Volume 95.7 fL (78.0-98.0); Mean Platelet Volume 9.2 fL (7.4-10.4); Platelet Count 127 thou/uL (130-400); RBC Distribution Width 19.4 % (11.5-14.5); Red Blood Cell (RBC) Count 2.53 mill/uL (4.70-6.10); White Blood Cell (WBC) Count 6.5 thou/uL (4.8-10.8)
[2020-11-21 06:35] LABS: Anion Gap 17 mmol/L (10-20); BUN (Urea Nitrogen) 25 mg/dL (8.9-20.6); Calc. Creatinine Clearance 24 mL/min (70-130); Carbon Dioxide 26 mmol/L (22-29); Chloride 97 mmol/L (98-107); Glucose 73 mg/dL (70-105); Potassium 4.9 mmol/L (3.5-5.1); Sodium 135 mmol/L (136-145)
[2020-11-21] MEDS: DULoxetine 60 MG CAP PO SCH (08:32)
[2020-11-21] MEDS: Saccharomyces boulardii 250 MG CAP PO SCH (08:32)
[2020-11-21] MEDS: Rifampin 300 MG CAP PO SCH ×2 (08:32→20:40)
[2020-11-21] MEDS: Sevelamer Carbonate 800 MG TAB PO SCH ×3 (08:32→15:57)
[2020-11-21] MEDS: Gabapentin 100 MG CAP PO SCH ×2 (08:33→20:39)
--- NOTE | 2020-11-21 10:12 | PRG ---
DATE OF SERVICE: 11/21/2020 SUBJECTIVE: A 25-year-old gentleman being seen for end-stage kidney disease. The patient denied nausea, vomiting, or chest pain. PHYSICAL EXAMINATION: General: The patient is awake and alert. Vital Signs: Afebrile, pulse 107, breathing at 16, blood pressure 110/74. HEENT: Head normocephalic and atraumatic. Eyes intact, no ulcers. Nose intact, no ulcers. Ears intact, no ulcers. Neck: Supple. No JVD. Chest: Symmetrical and clear. Cardiovascular: Shows S1 and S2, no rub, no murmur. Gastrointestinal: Abdomen is soft, bowel sounds positive. Extremities: Show no edema or ulcers. Skin: Shows no rash or petechiae. Musculoskeletal: Shows no joint swelling or stiffness. Genitourinary: Shows no Pimentel or CVA tenderness. Neurologic: Motor intact. Cranial nerves intact. LABORATORY DATA: Hemoglobin 7.7. ASSESSMENT AND PLAN: 1. Stage 6 chronic kidney disease. Plan: Dialysis per schedule. 2. Hypertension, stable. 3. Anemia. I would recommend transfusion. Job ID: [id number]
[2020-11-21] MEDS: NIFEdipine XL 90 MG TAB PO SCH ×2 (10:20→20:40)
[2020-11-21] MEDS: hydrALAZINE 25 MG TAB PO SCH ×3 (10:20→20:40)
[2020-11-21] MEDS: Labetalol 100 MG TAB PO SCH ×2 (10:20→20:40)
[2020-11-21] MEDS: cloNIDine 0.1 MG TAB PO SCH ×3 (10:20→20:39)
[2020-11-21] MEDS: EPOETIN ALFA-EPBX (ESRD) 10,000 UNIT/ML VIAL SC SCH (12:29)
--- NOTE | 2020-11-21 13:15 | PDOC.HOSPP ---
- Subjective Encounter Date: 11/21/20 Encounter Time: 10:25 Subjective: I have explained all the medical interventions done during this hospitalization to the patient, Including general surgical evaluation and the recommendations. I also explained to him that we are running out of all the medical interventions the only thing we can do is to do intermittent paracentesis as indicated with his worsening abdominal distention's. Other than that there is not much we can offer besides ongoing dialysis. Patient expressed his understanding the nurse at the bedside. He can be transferred to the medical floor. He is tachycardic. I also counseled him on taking the medications regularly as he did not want to take last night his blood pressure medications and this morning he was quite tachycardic. - Objective Vital Signs & Weight: Vital Signs (12 hours) Temp Pulse Resp BP Pulse Ox 11/21/20 12:06 99.0 F 109 H 16 122/84 97 11/21/20 10:20 113 H 11/21/20 07:46 98.8 F 113 H 18 111/74 95 11/21/20 05:06 98.4 F 110 H 18 110/74 100 Weight Weight 175 lb 7.807 oz Most Recent Monitor Data Heart Rate from ECG 90 NIBP 116/87 NIBP BP-Mean 96 Respiration from ECG 28 SpO2 98 I&O: 11/20/20 11/21/20 11/22/20 06:59 06:59 06:59 Intake Total 2379 2019 Output Total 0 Balance 2379 2019 Result Diagrams: 11/21/20 05:48 11/21/20 05:48 Additional Labs: Accuchecks 11/21/20 11/21/20 11/21/20 07:51 05:37 01:15 POC Glucose 67 L 69 L 79 11/20/20 11/20/20 20:40 17:34 POC Glucose 86 76 Hospitalist ROS - Medication Medications: Active Medications Generic Name Dose Route Start Last Admin Trade Name Freq PRN Reason Stop Dose Admin Hydrocodone Bitart/Acetaminophen 1 tab 11/17/20 13:47 11/17/20 14:13 Hydrocodone/Acetaminophen 5/325 Mg Tablet PO 1 tab Q6H PRN Administration Pain Al Hydroxide/Mg Hydroxide 30 ml 11/14/20 16:32 11/17/20 04:40 Mag-Al 1200 Mg/1200 Mg/30 Ml Udcup PO 30 ml Q6H PRN Administration Heartburn or Indigestion Amitriptyline HCl 100 mg 11/17/20 21:00 11/20/20 21:11 Amitriptyline Hcl 100 Mg Tab PO 100 mg QPM ALANNA Administration Clonidine 0.1 mg 11/19/20 09:00 11/21/20 10:20 Clonidine 0.1 Mg Tab PO Not Given TID ALANNA Diphenhydramine HCl 25 mg 11/18/20 22:00 11/21/20 10:43 Diphenhydramine 25 Mg Cap PO 25 mg Q6H ALANNA Administration Duloxetine HCl 60 mg 11/18/20 09:00 11/21/20 08:32 Duloxetine 60 Mg Cap PO 60 mg DAILY ALANNA Administration Epoetin John-epbx 20,000 unit 11/14/20 12:00 11/21/20 12:29 Epoetin John-Epbx (Esrd) 10,000 Unit/Ml Vial SC 20,000 unit Q7D ALANNA Administration Gabapentin 100 mg 11/11/20 21:00 11/21/20 08:33 Gabapentin 100 Mg Cap PO 100 mg BID [facility] Administration Hydralazine HCl 10 mg 11/17/20 13:46 11/17/20 14:14 Hydralazine 20 Mg/Ml Vial SLOW IVP 10 mg Q4H PRN Administration SBP > 150 Hydralazine HCl 100 mg 11/17/20 21:00 11/21/20 10:20 Hydralazine 25 Mg Tab PO Not Given TID [facility] Piperacillin Sod/Tazobactam 100 mls @ 200 mls/hr 11/11/20 12:00 11/21/20 12:25 Sod 2.25 gm/ Sodium Chloride IVPB 100 mls 0000,1200 [facility] Administration Labetalol HCl 600 mg 11/17/20 21:00 11/21/20 10:20 Labetalol 100 Mg Tab PO Not Given BID [facility] Morphine Sulfate 2 mg 11/12/20 12:50 11/21/20 10:43 Morphine 2 Mg/Ml Vial SLOW IVP 2 mg Q4H PRN Administration Pain (7-10) OR BREAKTHRU PAIN Nifedipine 90 mg 11/17/20 21:00 11/21/20 10:20 Nifedipine Xl 90 Mg Tab PO Not Given BID [facility] Ondansetron HCl 4 mg 11/13/20 22:27 11/20/20 12:56 Ondansetron Pf 4 Mg/2 Ml Vial IVP 4 mg Q6H PRN Administration Nausea/Vomiting Pantoprazole Sodium 40 mg 11/18/20 09:00 11/21/20 08:32 Pantoprazole 40 Mg Tab PO 40 mg DAILY ALANNA Administration Rifampin 300 mg 11/17/20 21:00 11/21/20 08:32 Rifampin 300 Mg Cap PO 300 mg BID ALANNA Administration Saccharomyces Boulardii 250 mg 11/18/20 09:00 11/21/20 08:32 Saccharomyces Boulardii 250 Mg Cap PO 250 mg DAILY ALANNA Administration Sevelamer Carbonate 2,400 mg 11/17/20 17:00 11/21/20 12:25 Sevelamer Carbonate 800 Mg Tab PO 2,400 mg TID-[facility] ALANNA Administration - Exam General Appearance: NAD, awake alert Eye: PERRL ENT: normocephalic atraumatic Neck: supple Heart: RRR, normal peripheral pulses Respiratory: CTAB, normal chest expansion Gastrointestinal: tender to palpation, distended Neurological: no focal deficits Hosp A/P - Plan Peritonitis (2) Abdominal pain Code(s): R10.9 - UNSPECIFIED ABDOMINAL PAIN Status: Acute Qualifiers: Abdominal location: generalized Qualified Code(s): R10.84 - Generalized abdominal pain (4) Ascites -Ultrasound guided paracentesis performed on 20 November hyperkalemia (5) Chronic pain -Exacerbated with addiction behavior now he is requiring IV Benadryl. Will try to keep everything p.o. at this point e (6) ESRD (end stage renal disease) on dialysis -Hemodialysis per schedule. -Dr. Mo following with us (7) H/O kidney transplant -Stable and on dialysis (8) H/O mitral valve replacement Code(s): Z95.2 - PRESENCE OF PROSTHETIC HEART VALVE Status: Chronic (9) History of endocarditis -Cardiomyopathy, with increased right and left ventricular pressure dilated IVC History of MRSA bacteremia Blood cultures performed on 20 November no growth for the last 5 days 25th I reviewed the notes from Dr. Grayson on November 20. It appears that consideration for surgical evaluation but no consult placed. We will check with ID again and if needed will place a consult for surgery tomorrow. Home medications has been reconciled today. I discussed with the brick burner head at that time and no good prognosis for this patient overall. 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 Hypoglycemia -Patient is not diabetic and is not on any oral or subcu medications. -We will put him on hypoglycemia protocol. karius test ordered on November 15 and it is a send out lab? -It appears that the test result is back and it stated that no microorganisms detected at significant levels. Will let Dr. Grayson aware of it. - Ascites from probable etiology of portal hypertension and end-stage renal disease On November 12, he had 4 L of fluid removed Peritoneal fluid study unremarkable; No SBP - white count is around 175 Dr. Grayson recommended surgical consult to evaluate the peritoneal membranes; concern for small bowel loop get tangled with the peritoneum and may cause small bowel obstruction -as an etiology for his abdominal discomfort. Diagnostic laparoscopy per ID. I discussed with Dr. Frank today. Surgery evaluated him .no surgical intervention. I also reviewed the GI consult that was done in June 2020. it does not appear they have much to offer in terms of his ongoing abdominal distention. We ran out of medical interventions at this point and for the most part supportive measures only at this point. Right femoral line area discharge. We will remove the central line send the tip for the culture. Patient already receiving vancomycin and Zosyn I have explained all the medical interventions done during this hospitalization to the patient, Including general surgical evaluation and the recommendations. I also explained to him that we are running out of all the medical interventions the only thing we can do is to do intermittent paracentesis as indicated with his worsening abdominal distention's. Other than that there is not much we can offer besides ongoing dialysis. Patient expressed his understanding the nurse at the bedside. He can be transferred to the medical floor. He is tachycardic. I also counseled him on taking the medications regularly as he did not want to take last night his blood pressure medications and this morning he was quite tachycardic. Will provide IV Lopressor as needed. May not be able to go to medical floor as he may need IV Lopressor if his heart rate goes above 100.
[2020-11-21] MEDS ORDERED: Metoprolol Tartrate 5 MG/5 ML VIAL IVP PRN (13:16)
[2020-11-21] MEDS: Amitriptyline HCl 100 MG TAB PO SCH (20:39)
[2020-11-22] MEDS: diphenhydrAMINE 25 MG CAP PO SCH ×4 (04:02→22:43)
[2020-11-22] MEDS: Morphine 2 MG/ML VIAL SLOW IVP PRN ×4 (04:07→22:41)
[2020-11-22] MEDS: Sevelamer Carbonate 800 MG TAB PO SCH ×4 (08:19→16:56)
[2020-11-22] MEDS: cloNIDine 0.1 MG TAB PO SCH ×3 (08:19→22:46)
[2020-11-22] MEDS: hydrALAZINE 25 MG TAB PO SCH ×3 (08:19→22:46)
[2020-11-22] MEDS ORDERED: Vancomycin 1 GM in Premix Bag 1 BAG IVPB SCH ×2 (11:00→12:30)
[2020-11-22] MEDS ORDERED: Vancomycin HCl 500 MG in Sodium Chloride 0.9% 100 ML IVPB SCH (11:00)
[2020-11-22] MEDS ORDERED: Vancomycin HCl 1.25 GM in Sodium Chloride 0.9% 250 ML 250 ML IVPB SCH ×2 (11:00→12:30)
[2020-11-22] MEDS ORDERED: Vancomycin HCl 750 MG in Sodium Chloride 0.9% 250 ML 250 ML IVPB SCH ×2 (11:00→12:30)
[2020-11-22 11:58] LABS: Vancomycin, Random 4.2 ug/mL (See Comment)
[2020-11-22 12:01] LABS: Anion Gap 19 mmol/L (10-20); BUN (Urea Nitrogen) 17 mg/dL (8.9-20.6); Calc. Creatinine Clearance 35 mL/min (70-130); Calcium 8.2 mg/dL (7.8-10.44); Carbon Dioxide 25 mmol/L (22-29); Chloride 95 mmol/L (98-107); Glucose 75 mg/dL (70-105); Potassium 3.7 mmol/L (3.5-5.1); Sodium 135 mmol/L (136-145)
--- NOTE | 2020-11-22 12:09 | PRG ---
DATE OF SERVICE: 11/22/2020 SUBJECTIVE: A 25-year-old gentleman being seen for end-stage kidney disease. The patient denies any nausea, vomiting or chest pain. PHYSICAL EXAMINATION: General: The patient is awake and alert. Vital Signs: Pulse 75, breathing at 16, blood pressure 108/67. HEENT: Head normocephalic and atraumatic. Eyes intact, no ulcers. Nose intact, no ulcers. Ears intact, no ulcers. Neck: Supple. No JVD. Chest: Symmetrical and clear. Cardiovascular: Shows S1 and S2, no rub, no murmur. Gastrointestinal: Abdomen is soft, bowel sounds positive. Extremities: Show no edema or ulcers. Skin: Shows no rash or petechiae. Musculoskeletal: Shows no joint swelling or stiffness. Genitourinary: Shows no Pimentel or CVA tenderness. Neurologic: Motor intact. Cranial nerves intact. LABORATORY DATA: Reviewed. ASSESSMENT AND PLAN: 1. Stage 6 chronic kidney disease. Plan: Dialysis per schedule. 2. Hypertension, stable. 3. Anemia. I would recommend transfusion. 4. Medication based on GFR, appropriate. Job ID: [id number]
--- NOTE | 2020-11-22 12:15 | PDOC.HOSPP ---
- Subjective Encounter Date: 11/22/20 Encounter Time: 11:00 Subjective: Patient seen in the dialysis area he is so sleepy and somnolent I am barely able to wake him up. While he is sleeping, I palpated his abdomen quite well and he he did not made any facial expression as if he is in pain. - Objective Vital Signs & Weight: Vital Signs (12 hours) Temp Pulse Resp BP BP Pulse Ox 11/22/20 11:40 98 15 108/67 97 11/22/20 08:09 98.0 F 107 H 18 140/102 H 98 11/22/20 04:00 98.0 F 106 H 18 133/95 H 100 11/22/20 01:40 108 H 140/93 H 11/22/20 01:37 111 H 130/99 H 11/22/20 01:35 109 H 134/99 H 11/22/20 01:23 107 H 137/98 H Weight Weight 175 lb 7.807 oz Most Recent Monitor Data Heart Rate from ECG 90 NIBP 116/87 NIBP BP-Mean 96 Respiration from ECG 28 SpO2 98 I&O: 11/21/20 11/22/20 11/23/20 06:59 06:59 06:59 Intake Total 2019 1919 Output Total 0 0 Balance 2019 1919 Result Diagrams: 11/21/20 05:48 11/22/20 10:00 Additional Labs: Accuchecks 11/22/20 11/22/20 11/22/20 10:48 06:34 05:58 POC Glucose 79 61 L 40 L* 11/21/20 11/21/20 19:36 16:54 POC Glucose 81 76 Hospitalist ROS - Medication Medications: Active Medications Generic Name Dose Route Start Last Admin Trade Name Freq PRN Reason Stop Dose Admin Hydrocodone Bitart/Acetaminophen 1 tab 11/17/20 13:47 11/17/20 14:13 Hydrocodone/Acetaminophen 5/325 Mg Tablet PO 1 tab Q6H PRN Administration Pain Al Hydroxide/Mg Hydroxide 30 ml 11/14/20 16:32 11/17/20 04:40 Mag-Al 1200 Mg/1200 Mg/30 Ml Udcup PO 30 ml Q6H PRN Administration Heartburn or Indigestion Amitriptyline HCl 100 mg 11/17/20 21:00 11/21/20 20:39 Amitriptyline Hcl 100 Mg Tab PO 100 mg QPM ALANNA Administration Clonidine 0.1 mg 11/19/20 09:00 11/22/20 08:19 Clonidine 0.1 Mg Tab PO Not Given TID COUNT INCLUDES [facility] Diphenhydramine HCl 25 mg 11/18/20 22:00 11/22/20 10:27 Diphenhydramine 25 Mg Cap PO 25 mg Q6H ALANNA Administration Duloxetine HCl 60 mg 11/18/20 09:00 11/21/20 08:32 Duloxetine 60 Mg Cap PO 60 mg DAILY ALANNA Administration Epoetin John-epbx 20,000 unit 11/14/20 12:00 11/21/20 12:29 Epoetin John-Epbx (Esrd) 10,000 Unit/Ml Vial SC 20,000 unit Q7D ALANNA Administration Gabapentin 100 mg 11/11/20 21:00 11/21/20 20:39 Gabapentin 100 Mg Cap PO 100 mg BID ALANNA Administration Hydralazine HCl 10 mg 11/17/20 13:46 11/17/20 14:14 Hydralazine 20 Mg/Ml Vial SLOW IVP 10 mg Q4H PRN Administration SBP > 150 Hydralazine HCl 100 mg 11/17/20 21:00 11/22/20 08:19 Hydralazine 25 Mg Tab PO Not Given TID COUNT INCLUDES [facility] Labetalol HCl 600 mg 11/17/20 21:00 11/21/20 20:40 Labetalol 100 Mg Tab PO Not Given BID COUNT INCLUDES [facility] Metoprolol Tartrate 5 mg 11/21/20 13:16 11/22/20 01:30 Metoprolol Tartrate 5 Mg/5 Ml Vial IVP 5 mg Q4H PRN Administration for HR > 90 or SBP>150 Morphine Sulfate 2 mg 11/12/20 12:50 11/22/20 08:34 Morphine 2 Mg/Ml Vial SLOW IVP 2 mg Q4H PRN Administration Pain (7-10) OR BREAKTHRU PAIN Nifedipine 90 mg 11/17/20 21:00 11/21/20 20:40 Nifedipine Xl 90 Mg Tab PO Not Given BID COUNT INCLUDES [facility] Ondansetron HCl 4 mg 11/13/20 22:27 11/20/20 12:56 Ondansetron Pf 4 Mg/2 Ml Vial IVP 4 mg Q6H PRN Administration Nausea/Vomiting Pantoprazole Sodium 40 mg 11/18/20 09:00 11/21/20 08:32 Pantoprazole 40 Mg Tab PO 40 mg DAILY ALANNA Administration Rifampin 300 mg 11/17/20 21:00 11/21/20 20:40 Rifampin 300 Mg Cap PO 300 mg BID ALANNA Administration Saccharomyces Boulardii 250 mg 11/18/20 09:00 11/21/20 08:32 Saccharomyces Boulardii 250 Mg Cap PO 250 mg DAILY ALANNA Administration Sevelamer Carbonate 2,400 mg 11/17/20 17:00 11/22/20 08:19 Sevelamer Carbonate 800 Mg Tab PO Not Given TID-WM ALANNA - Exam General Appearance: NAD ENT: normocephalic atraumatic Neck: supple Heart: RRR Respiratory: CTAB, normal chest expansion Gastrointestinal: soft Gastrointestinal - other findings: While he is sleeping, I palpated his abdomen quite well and he he did not Extremities - other findings: Did not show any sign of pain discomfort Neurological: cranial nerve grossly intact Psychiatric: somnolent Psychiatric - other findings: Sleep Hosp A/P - Plan Peritonitis (2) Abdominal pain Code(s): R10.9 - UNSPECIFIED ABDOMINAL PAIN Status: Acute Qualifiers: Abdominal location: generalized Qualified Code(s): R10.84 - Generalized abdominal pain (4) Ascites -Ultrasound guided paracentesis performed on 20 November hyperkalemia (5) Chronic pain -Exacerbated with addiction behavior now he is requiring IV Benadryl. Will try to keep everything p.o. at this point e (6) ESRD (end stage renal disease) on dialysis -Hemodialysis per schedule. -Dr. Mo following with us (7) H/O kidney transplant -Stable and on dialysis (8) H/O mitral valve replacement Code(s): Z95.2 - PRESENCE OF PROSTHETIC HEART VALVE Status: Chronic (9) History of endocarditis -Cardiomyopathy, with increased right and left ventricular pressure dilated IVC History of MRSA bacteremia Blood cultures performed on 20 November no growth for the last 5 days 25th I reviewed the notes from Dr. Grayson on November 20. It appears that consideration for surgical evaluation but no consult placed. We will check with ID again and if needed will place a consult for surgery tomorrow. Home medications has been reconciled today. I discussed with the regional commercial sales manager at that time and no good prognosis for this patient overall. 26th Hyperkalemia in a dialysis patient -Status post contractor field hauling dialysis today -Repeating the potassium level this afternoon. Hypoglycemia -Patient is not diabetic and is not on any oral or subcu medications. -We will put him on hypoglycemia protocol. karius test ordered on November 15 and it is a send out lab? -It appears that the test result is back and it stated that no microorganisms detected at significant levels. Will let Dr. Grayson aware of it. - Ascites from probable etiology of portal hypertension and end-stage renal disease On November 12, he had 4 L of fluid removed Peritoneal fluid study unremarkable; No SBP - white count is around 175 Dr. Grayson recommended surgical consult to evaluate the peritoneal membranes; concern for small bowel loop get tangled with the peritoneum and may cause small bowel obstruction -as an etiology for his abdominal discomfort. Diagnostic laparoscopy per ID. I discussed with Dr. Frank today. Surgery evaluated him .no surgical intervention. I also reviewed the GI consult that was done in June 2020. it does not appear they have much to offer in terms of his ongoing abdominal distention. We ran out of medical interventions at this point and for the most part supp ortive measures only at this point. Right femoral line area discharge. We will remove the central line send the tip for the culture. Patient already receiving vancomycin and Zosyn I have explained all the medical interventions done during this hospitalization to the patient, Including general surgical evaluation and the recommendations. I also explained to him that we are running out of all the medical interventions the only thing we can do is to do intermittent paracentesis as indicated with his worsening abdominal distention's. Other than that there is not much we can offer besides ongoing dialysis. Patient expressed his understanding the nurse at the bedside. He can be transferred to the medical floor. He is tachycardic. I also counseled him on taking the medications regularly as he did not want to take last night his blood pressure medications and this morning he was quite tachycardic. Will provide IV Lopressor as needed. May not be able to go to medical floor as he may need IV Lopressor if his heart rate goes above 100. 30th While he is sleeping, I palpated his abdomen quite well and he he did not made any facial expression as if he is in pain or discomfort. So his abdominal distention causing discomfort seems to be very intermittent and periodical. I will try to address the CODE STATUS again with him palliative care is also involved. Hopefully will be able to discharge him in a day or 2. Plan to send him home with Augmentin.
[2020-11-22] MEDS ORDERED: Vancomycin HCl 1.5 GM in Sodium Chloride 0.9% 250 ML 300 ML IVPB SCH (12:30)
[2020-11-22] MEDS ORDERED: Vancomycin Sliding Scale 1 EACH FS ONE (12:30)
[2020-11-22] MEDS ORDERED: HOLD VANCOMYCIN FOR LEVEL >20 FS SCH (12:30)
[2020-11-22] MEDS ORDERED: Vancomycin 1.5 GRAM/300 ML BAG 1.5 GM in Premix Bag 1 BAG IVPB SCH (12:30)
[2020-11-22 12:51] LABS: #Eosinphils 0.3 thou/uL (0.0-0.7); #Lymphocytes 1.2 thou/uL (1.20-3.40); #Monocytes 0.5 thou/uL (0.11-0.59); #Neutrophils 3.1 thou/uL (1.40-6.50); %Basophils 0.3 % (0.0-1.0); %Eosinophils 6.6 % (0.0-10.0); %Lymphocytes 24.1 % (21.0-51.0); %Monocytes 9.5 % (0.0-10.0); %Neutrophils 59.6 % (42.0-75.0); Mean Corpuscular HGB CONC 32.4 g/dL (32.0-36.0); Mean Corpuscular Hemoglobin 30.6 pg (27.0-31.0); Mean Corpuscular Volume 94.4 fL (78.0-98.0); Mean Platelet Volume 9.2 fL (7.4-10.4); Platelet Count 122 thou/uL (130-400); RBC Distribution Width 20.5 % (11.5-14.5); Red Blood Cell (RBC) Count 2.61 mill/uL (4.70-6.10); White Blood Cell (WBC) Count 5.1 thou/uL (4.8-10.8)
[2020-11-22] MEDS: Gabapentin 100 MG CAP PO SCH ×2 (13:56→22:43)
[2020-11-22] MEDS: Labetalol 100 MG TAB PO SCH ×2 (13:57→22:46)
[2020-11-22] MEDS: DULoxetine 60 MG CAP PO SCH (13:57)
[2020-11-22] MEDS: Rifampin 300 MG CAP PO SCH ×2 (13:57→22:42)
[2020-11-22] MEDS: Saccharomyces boulardii 250 MG CAP PO SCH (13:57)
[2020-11-22] MEDS: NIFEdipine XL 90 MG TAB PO SCH ×2 (13:58→22:46)
[2020-11-22] MEDS: Amitriptyline HCl 100 MG TAB PO SCH (22:43)
[2020-11-23] MEDS: Morphine 2 MG/ML VIAL SLOW IVP PRN ×5 (02:49→22:32)
[2020-11-23] MEDS: diphenhydrAMINE 25 MG CAP PO SCH ×4 (04:37→21:59)
[2020-11-23] MEDS: Dextrose 50% Abboject 50 ML SYRINGE SLOW IVP PRN ×3 (06:39→22:19)
[2020-11-23 09:37] LABS: #Eosinphils 0.5 thou/uL (0.0-0.7); #Lymphocytes 1.9 thou/uL (1.20-3.40); #Monocytes 0.8 thou/uL (0.11-0.59); #Neutrophils 3.5 thou/uL (1.40-6.50); %Basophils 0.5 % (0.0-1.0); %Eosinophils 6.9 % (0.0-10.0); %Lymphocytes 28.4 % (21.0-51.0); %Monocytes 11.9 % (0.0-10.0); %Neutrophils 52.4 % (42.0-75.0); Hemoglobin 8.2 g/dL (14.0-18.0); Mean Corpuscular HGB CONC 32.2 g/dL (32.0-36.0); Mean Corpuscular Hemoglobin 30.9 pg (27.0-31.0); Mean Corpuscular Volume 95.9 fL (78.0-98.0); Mean Platelet Volume 9.4 fL (7.4-10.4); Platelet Count 124 thou/uL (130-400); RBC Distribution Width 21.4 % (11.5-14.5); Red Blood Cell (RBC) Count 2.67 mill/uL (4.70-6.10); White Blood Cell (WBC) Count 6.6 thou/uL (4.8-10.8)
[2020-11-23] MEDS: Sevelamer Carbonate 800 MG TAB PO SCH ×3 (09:40→18:15)
[2020-11-23] MEDS: Gabapentin 100 MG CAP PO SCH ×2 (09:41→21:56)
[2020-11-23] MEDS: cloNIDine 0.1 MG TAB PO SCH ×3 (09:41→22:01)
[2020-11-23] MEDS: Rifampin 300 MG CAP PO SCH ×2 (09:41→21:56)
[2020-11-23] MEDS: DULoxetine 60 MG CAP PO SCH (09:41)
[2020-11-23] MEDS: NIFEdipine XL 90 MG TAB PO SCH ×2 (09:41→22:01)
[2020-11-23] MEDS: Saccharomyces boulardii 250 MG CAP PO SCH (09:42)
[2020-11-23] MEDS: Ondansetron PF 4 MG/2 ML Vial IVP PRN (09:49)
[2020-11-23] MEDS: hydrALAZINE 25 MG TAB PO SCH ×3 (09:53→21:58)
[2020-11-23] MEDS: Labetalol 100 MG TAB PO SCH ×2 (09:54→22:01)
[2020-11-23 09:59] LABS: Anion Gap 22 mmol/L (10-20); BUN (Urea Nitrogen) 28 mg/dL (8.9-20.6); Calc. Creatinine Clearance 23 mL/min (70-130); Calcium 8.4 mg/dL (7.8-10.44); Carbon Dioxide 23 mmol/L (22-29); Chloride 95 mmol/L (98-107); Glucose 54 mg/dL (70-105); Sodium 135 mmol/L (136-145)
--- NOTE | 2020-11-23 11:04 | PRG ---
DATE OF SERVICE: 11/23/2020 SUBJECTIVE: A 25-year-old gentleman being seen for end-stage renal disease. The patient denied nausea, vomiting, or chest pain. OBJECTIVE: General: The patient is awake and alert. Vital Signs: Afebrile, pulse , breathing at 16, blood pressure 113/84. HEENT: Head normocephalic and atraumatic. Eyes intact, no ulcers. Nose intact, no ulcers. Ears intact, no ulcers. Neck: Supple. No JVD. Chest: Symmetrical and clear. Cardiovascular: Shows S1 and S2, no rub, no murmur. Gastrointestinal: Abdomen is soft, bowel sounds positive. Extremities: Show no edema or ulcers. Skin: Shows no rash or petechiae. Musculoskeletal: Shows no joint swelling or stiffness. Genitourinary: Shows no Pimentel or CVA tenderness. Neurologic: Motor intact. Cranial nerves intact. LABORATORY DATA: Labs show hemoglobin 8.2. Potassium 5. ASSESSMENT AND PLAN: 1. Stage 6 chronic kidney disease. Plan: Dialysis per schedule. 2. Hypertension, stable. 3. Anemia, stable. 4. Medication based on GFR, appropriate. Job ID: [id number]
--- NOTE | 2020-11-23 12:45 | PDOC.HOSPP ---
- Subjective Encounter Date: 11/23/20 Encounter Time: 10:10 Subjective: Patient is in his usual state of being lethargic but I on awakening able to answer some of the questions. His creatinine is higher. His usual dialysis days are Friday. I talked to Dr. Pierre last evening. He would look into his abdominal distention early next week including evaluation for possible diagnostic laparoscopy. I conveyed this to the patient as well. I noticed his abdomen is tender today - Objective Vital Signs & Weight: Vital Signs (12 hours) Temp Pulse Resp BP BP Pulse Ox 11/23/20 11:45 97.9 F 107 H 18 138/98 H 99 11/23/20 09:54 103 H 11/23/20 09:53 103 H 11/23/20 09:41 103 H 11/23/20 07:41 98.3 F 103 H 17 113/84 96 11/23/20 03:13 99.5 F 106 H 16 138/100 H 92 L Weight Admit Weight 185 lb 3.013 oz Weight 175 lb 7.807 oz Most Recent Monitor Data Heart Rate from ECG 90 NIBP 116/87 NIBP BP-Mean 96 Respiration from ECG 28 SpO2 98 I&O: 11/22/20 11/23/20 11/24/20 06:59 06:59 06:59 Intake Total 1920 1930 Output Total 0 4100 Balance 0 -0 Result Diagrams: 11/23/20 09:25 11/23/20 09:25 Additional Labs: Accuchecks 11/23/20 11/22/20 11/22/20 06:33 20:46 16:41 POC Glucose 46 L* 80 60 L Hospitalist ROS - Medication Medications: Active Medications Generic Name Dose Route Start Last Admin Trade Name Freq PRN Reason Stop Dose Admin Hydrocodone Bitart/Acetaminophen 1 tab 11/17/20 13:47 11/17/20 14:13 Hydrocodone/Acetaminophen 5/325 Mg Tablet PO 1 tab Q6H PRN Administration Pain Al Hydroxide/Mg Hydroxide 30 ml 11/14/20 16:32 11/17/20 04:40 Mag-Al 1200 Mg/1200 Mg/30 Ml Udcup PO 30 ml Q6H PRN Administration Heartburn or Indigestion Amitriptyline HCl 100 mg 11/17/20 21:00 11/22/20 22:43 Amitriptyline Hcl 100 Mg Tab PO 100 mg QPM ALANNA Administration Clonidine 0.1 mg 11/19/20 09:00 11/23/20 09:41 Clonidine 0.1 Mg Tab PO Not Given TID ALANNA Dextrose/Water 25 gm 11/18/20 12:06 11/23/20 11:06 Dextrose 50% Abboject 50 Ml Syringe SLOW IVP 25 gm PRN PRN Administration Hypoglycemia Diphenhydramine HCl 25 mg 11/18/20 22:00 11/23/20 09:41 Diphenhydramine 25 Mg Cap PO 25 mg Q6H ALANNA Administration Duloxetine HCl 60 mg 11/18/20 09:00 11/23/20 09:41 Duloxetine 60 Mg Cap PO 60 mg DAILY ALANNA Administration Epoetin John-epbx 20,000 unit 11/14/20 12:00 11/21/20 12:29 Epoetin John-Epbx (Esrd) 10,000 Unit/Ml Vial SC 20,000 unit Q7D ALANNA Administration Gabapentin 100 mg 11/11/20 21:00 11/23/20 09:41 Gabapentin 100 Mg Cap PO 100 mg BID ALANNA Administration Hydralazine HCl 10 mg 11/17/20 13:46 11/17/20 14:14 Hydralazine 20 Mg/Ml Vial SLOW IVP 10 mg Q4H PRN Administration SBP > 150 Hydralazine HCl 100 mg 11/17/20 21:00 11/23/20 09:53 Hydralazine 25 Mg Tab PO Not Given TID [facility] Vancomycin HCl 1.5 gm/ Device 300 mls @ 200 mls/hr 11/22/20 12:30 11/22/20 13:58 IVPB 300 mls WILLCALL ALANNA Administration Labetalol HCl 600 mg 11/17/20 21:00 11/23/20 09:54 Labetalol 100 Mg Tab PO Not Given BID [facility] Metoprolol Tartrate 5 mg 11/21/20 13:16 11/22/20 01:30 Metoprolol Tartrate 5 Mg/5 Ml Vial IVP 5 mg Q4H PRN Administration for HR > 90 or SBP>150 Morphine Sulfate 2 mg 11/22/20 18:20 11/23/20 09:42 Morphine 2 Mg/Ml Vial SLOW IVP 2 mg Q4H PRN Administration Severe Pain (7-10) Nifedipine 90 mg 11/17/20 21:00 11/23/20 09:41 Nifedipine Xl 90 Mg Tab PO 90 mg BID ALANNA Administration Ondansetron HCl 4 mg 11/13/20 22:27 11/23/20 09:49 Ondansetron Pf 4 Mg/2 Ml Vial IVP 4 mg Q6H PRN Administration Nausea/Vomiting Pantoprazole Sodium 40 mg 11/18/20 09:00 11/23/20 09:41 Pantoprazole 40 Mg Tab PO 40 mg DAILY ALANNA Administration Rifampin 300 mg 11/17/20 21:00 11/23/20 09:41 Rifampin 300 Mg Cap PO 300 mg BID ALANNA Administration Saccharomyces Boulardii 250 mg 11/18/20 09:00 11/23/20 09:42 Saccharomyces Boulardii 250 Mg Cap PO 250 mg DAILY ALANNA Administration Sevelamer Carbonate 2,400 mg 11/17/20 17:00 11/23/20 09:40 Sevelamer Carbonate 800 Mg Tab PO Not Given TID-WM ALANNA - Exam General Appearance: NAD, awake alert, ill appearing Eye: PERRL ENT: normocephalic atraumatic Neck: supple Heart: RRR Respiratory: CTAB, normal chest expansion Gastrointestinal: soft, normal bowel sounds, tender to palpation, distended Neurological: cranial nerve grossly intact Musculoskeletal: generalized weakness Psychiatric: A&O x 3 Hosp A/P - Plan Peritonitis (2) Abdominal pain Code(s): R10.9 - UNSPECIFIED ABDOMINAL PAIN Status: Acute Qualifiers: Abdominal location: generalized Qualified Code(s): R10.84 - Generalized abdominal pain (4) Ascites -Ultrasound guided paracentesis performed on 20 November hyperkalemia (5) Chronic pain -Exacerbated with addiction behavior now he is requiring IV Benadryl. Will try to keep everything p.o. at this point e (6) ESRD (end stage renal disease) on dialysis -Hemodialysis per schedule. -Dr. Mo following with us (7) H/O kidney transplant -Stable and on dialysis (8) H/O mitral valve replacement Code(s): Z95.2 - PRESENCE OF PROSTHETIC HEART VALVE Status: Chronic (9) History of endocarditis -Cardiomyopathy, with increased right and left ventricular pressure dilated IVC History of MRSA bacteremia Blood cultures performed on 20 November no growth for the last 5 days 25th I reviewed the notes from Dr. Grayson on November 20. It appears that consideration for surgical evaluation but no consult placed. We will check with ID again and if needed will place a consult for surgery tomorrow. Home medications has been reconciled today. I discussed with the individual pension consultant at that time and no good prognosis for this patient overall. Hyperkalemia in a dialysis patient -Status post installer inspector final dialysis today -Repeating the potassium level this afternoon. Hypoglycemia -Patient is not diabetic and is not on any oral or subcu medications. -We will put him on hypoglycemia protocol. karius test ordered on November 15 and it is a send out lab? -It appears that the test result is back and it stated that no microorganisms detected at significant levels. Will let Dr. Grayson aware of it. - Ascites from probable etiology of portal hypertension and end-stage renal disease On November 12, he had 4 L of fluid removed Peritoneal fluid study unremarkable; No SBP - white count is around 175 Dr. Grayson recommended surgical consult to evaluate the peritoneal membranes; concern for small bowel loop get tangled with the peritoneum and may cause small bowel obstruction -as an etiology for his abdominal discomfort. Diagnostic laparoscopy per ID. I discussed with Dr. Frank today. Surgery evaluated him .no surgical intervention. I also reviewed the GI consult that was done in June 2020. it does not appear they have much to offer in terms of his ongoing abdominal distention. We ran out of medical interventions at this point and for the most part supportive measures only at this point. Right femoral line area discharge. We will remove the central line send the tip for the culture. Patient already receiving vancomycin and Zosyn I have explained all the medical interventions done during this hospitalization to the patient, Including general surgical evaluation and the recommendations. I also explained to him that we are running out of all the medical interventions the only thing we can do is to do intermittent paracentesis as indicated with his worsening abdominal distention's. Other than that there is not much we can offer besides ongoing dialysis. Patient expressed his understanding the nurse at the bedside. He can be transferred to the medical floor. He is tachycardic. I also counseled him on taking the medications regularly as he did not want to take last night his blood pressure medications and this morning he was quite tachycardic. Will provide IV Lopressor as needed. May not be able to go to medical floor as he may need IV Lopressor if his heart rate goes above 100. 30th While he is sleeping, I palpated his abdomen quite well and he he did not made any facial expression as if he is in pain or discomfort. So his abdominal distention causing discomfort seems to be very intermittent and periodical. I will try to address the CODE STATUS again with him palliative care is also involved. Hopefully will be able to discharge him in a day or 2. Plan to send him home with Augmentin. 31t His creatinine is higher. His usual dialysis days are Friday. I talked to Dr. Pierre last evening. He will see the pt next week. I conveyed this to the patient as well. He is afebrile and no white count michi stop vancomycin as he is on it for over a week. Catheter tip cultures on showed greater than 15 colony-forming unit in the Gram stain but no growth for 3 days - likely colonization.
[2020-11-23] MEDS ORDERED: Sodium Chloride 0.9% 10 ML ONE ×3 (17:20→22:28)
[2020-11-23] MEDS: Amitriptyline HCl 100 MG TAB PO SCH (21:59)
[2020-11-24] MEDS ORDERED: Sodium Chloride 0.9% 10 ML ONE ×2 (03:23→04:07)
[2020-11-24] MEDS: Morphine 2 MG/ML VIAL SLOW IVP PRN ×4 (03:26→22:54)
[2020-11-24] MEDS: diphenhydrAMINE 25 MG CAP PO SCH ×3 (04:54→16:32)
[2020-11-24] MEDS: cloNIDine 0.1 MG TAB PO SCH ×3 (09:12→23:02)
[2020-11-24] MEDS: hydrALAZINE 25 MG TAB PO SCH ×3 (09:13→23:00)
[2020-11-24] MEDS: Labetalol 100 MG TAB PO SCH (09:13)
[2020-11-24] MEDS: Sevelamer Carbonate 800 MG TAB PO SCH ×3 (09:13→18:18)
[2020-11-24] MEDS: Gabapentin 100 MG CAP PO SCH ×2 (09:13→22:59)
[2020-11-24] MEDS: DULoxetine 60 MG CAP PO SCH (09:13)
[2020-11-24] MEDS: Rifampin 300 MG CAP PO SCH ×2 (09:14→23:45)
[2020-11-24] MEDS: NIFEdipine XL 90 MG TAB PO SCH ×2 (09:14→23:00)
[2020-11-24] MEDS: Saccharomyces boulardii 250 MG CAP PO SCH (09:16)
--- NOTE | 2020-11-24 10:06 | PRG ---
DATE OF SERVICE: 11/24/2020 SUBJECTIVE: This is a 25-year-old gentleman being seen for end-stage renal disease. The patient denied nausea, vomiting, or chest pain. OBJECTIVE: General: The patient is awake and alert. Vital Signs: Pulse 111, breathing at 16, blood pressure 116/80. HEENT: Head normocephalic and atraumatic. Eyes intact, no ulcers. Nose intact, no ulcers. Ears intact, no ulcers. Neck: Supple. No JVD. Chest: Symmetrical and clear. Cardiovascular: Shows S1 and S2, no rub, no murmur. Gastrointestinal: Abdomen is soft, bowel sounds positive. Extremities: Show no edema or ulcers. Skin: Shows no rash or petechiae. Musculoskeletal: Shows no joint swelling or stiffness. Genitourinary: Shows no Pimentel or CVA tenderness. Neurologic: Motor intact. Cranial nerves intact. LABORATORY DATA: Hemoglobin 8.2. ASSESSMENT AND PLAN: 1. Stage 6 chronic kidney disease. Plan: Dialysis per schedule. 2. Hypertension, stable. 3. Anemia, stable. 4. Medication based on GFR appropriate. Job ID: [id number]
--- NOTE | 2020-11-24 12:50 | PDOC.HOSPP ---
- Subjective Encounter Date: 11/24/20 Encounter Time: 09:50 Subjective: Since seen in the dialysis area he is at baseline being lethargic but able to answer a couple of questions on awakening. He is tachycardic this morning. He cannot give IV Lopressor on the medical floor patient will be back in the telemetry floor. - Objective Vital Signs & Weight: Vital Signs (12 hours) Temp Pulse Resp BP BP Pulse Ox 11/24/20 09:14 111 H 11/24/20 09:13 111 H 11/24/20 09:10 111 H 116/80 11/24/20 07:36 98.4 F 111 H 20 148/101 H 97 11/24/20 04:52 97 11/24/20 04:40 98.3 F 100 22 H 129/93 H 94 L Weight Admit Weight 185 lb 3.013 oz Weight 175 lb 7.807 oz Most Recent Monitor Data Heart Rate from ECG 90 NIBP 116/87 NIBP BP-Mean 96 Respiration from ECG 28 SpO2 98 I&O: 11/23/20 11/24/20 11/25/20 06:59 06:59 06:59 Intake Total 1930 1390 Output Total 4100 500 Balance -2170 890 Result Diagrams: 11/23/20 09:25 11/23/20 09:25 Additional Labs: Accuchecks 11/23/20 22:54 POC Glucose 109 H Hospitalist ROS - Medication Medications: Active Medications Generic Name Dose Route Start Last Admin Trade Name Freq PRN Reason Stop Dose Admin Hydrocodone Bitart/Acetaminophen 1 tab 11/17/20 13:47 11/17/20 14:13 Hydrocodone/Acetaminophen 5/325 Mg Tablet PO 1 tab Q6H PRN Administration Pain Al Hydroxide/Mg Hydroxide 30 ml 11/14/20 16:32 11/17/20 04:40 Mag-Al 1200 Mg/1200 Mg/30 Ml Udcup PO 30 ml Q6H PRN Administration Heartburn or Indigestion Amitriptyline HCl 100 mg 11/17/20 21:00 11/23/20 21:59 Amitriptyline Hcl 100 Mg Tab PO 100 mg QPM ALANNA Administration Clonidine 0.1 mg 11/19/20 09:00 11/24/20 09:12 Clonidine 0.1 Mg Tab PO Not Given TID ALANNA Dextrose/Water 25 gm 11/18/20 12:06 11/23/20 22:19 Dextrose 50% Abboject 50 Ml Syringe SLOW IVP 25 gm PRN PRN Administration Hypoglycemia Diphenhydramine HCl 25 mg 11/18/20 22:00 11/24/20 04:54 Diphenhydramine 25 Mg Cap PO 25 mg Q6H ALANNA Administration Duloxetine HCl 60 mg 11/18/20 09:00 11/24/20 09:13 Duloxetine 60 Mg Cap PO Not Given DAILY ALANNA Epoetin John-epbx 20,000 unit 11/14/20 12:00 11/21/20 12:29 Epoetin John-Epbx (Esrd) 10,000 Unit/Ml Vial SC 20,000 unit Q7D ALANNA Administration Gabapentin 100 mg 11/11/20 21:00 11/24/20 09:13 Gabapentin 100 Mg Cap PO Not Given BID [facility] Hydralazine HCl 10 mg 11/17/20 13:46 11/17/20 14:14 Hydralazine 20 Mg/Ml Vial SLOW IVP 10 mg Q4H PRN Administration SBP > 150 Hydralazine HCl 100 mg 11/17/20 21:00 11/24/20 09:13 Hydralazine 25 Mg Tab PO Not Given TID [facility] Labetalol HCl 600 mg 11/17/20 21:00 11/24/20 09:13 Labetalol 100 Mg Tab PO Not Given BID [facility] Metoprolol Tartrate 5 mg 11/21/20 13:16 11/22/20 01:30 Metoprolol Tartrate 5 Mg/5 Ml Vial IVP 5 mg Q4H PRN Administration for HR > 90 or SBP>150 Morphine Sulfate 2 mg 11/22/20 18:20 11/24/20 07:49 Morphine 2 Mg/Ml Vial SLOW IVP 2 mg Q4H PRN Administration Severe Pain (7-10) Nifedipine 90 mg 11/17/20 21:00 11/24/20 09:14 Nifedipine Xl 90 Mg Tab PO Not Given BID [facility] Ondansetron HCl 4 mg 11/13/20 22:27 11/23/20 09:49 Ondansetron Pf 4 Mg/2 Ml Vial IVP 4 mg Q6H PRN Administration Nausea/Vomiting Pantoprazole Sodium 40 mg 11/18/20 09:00 11/24/20 09:14 Pantoprazole 40 Mg Tab PO Not Given DAILY ALANNA Rifampin 300 mg 11/17/20 21:00 11/24/20 09:14 Rifampin 300 Mg Cap PO Not Given BID ALANNA Saccharomyces Boulardii 250 mg 11/18/20 09:00 11/24/20 09:16 Saccharomyces Boulardii 250 Mg Cap PO Not Given DAILY ALANNA Sevelamer Carbonate 2,400 mg 11/17/20 17:00 11/24/20 09:13 Sevelamer Carbonate 800 Mg Tab PO Not Given TID-WM ALANNA - Exam General Appearance: NAD, ill appearing Eye: PERRL ENT: normocephalic atraumatic Neck: supple Heart: RRR Respiratory: CTAB, normal chest expansion Gastrointestinal: soft, normal bowel sounds Neurological: no focal deficits Psychiatric: A&O x 3 Hosp A/P - Plan Peritonitis (2) Abdominal pain Code(s): R10.9 - UNSPECIFIED ABDOMINAL PAIN Status: Acute Qualifiers: Abdominal location: generalized Qualified Code(s): R10.84 - Generalized abdominal pain (4) Ascites -Ultrasound guided paracentesis performed on 20 November hyperkalemia (5) Chronic pain -Exacerbated with addiction behavior now he is requiring IV Benadryl. Will try to keep everything p.o. at this point e (6) ESRD (end stage renal disease) on dialysis -Hemodialysis per schedule. -Dr. Mo following with us (7) H/O kidney transplant -Stable and on dialysis (8) H/O mitral valve replacement Code(s): Z95.2 - PRESENCE OF PROSTHETIC HEART VALVE Status: Chronic (9) History of endocarditis -Cardiomyopathy, with increased right and left ventricular pressure dilated IVC History of MRSA bacteremia Blood cultures performed on 20 November no growth for the last 5 days Ascites from probable etiology of portal hypertension and end-stage renal disease On November 12, he had 4 L of fluid removed Peritoneal fluid study unremarkable; No SBP - white count is around 175 Dr. Grayson recommended surgical consult to evaluate the peritoneal membranes; concern for small bowel loop get tangled with the peritoneum and may cause small bowel obstruction -as an etiology for his abdominal discomfort. Diagnostic laparoscopy per ID. I discussed with Dr. Frank today. Surgery evaluated him .no surgical intervention. I also reviewed the GI consult that was done in June 2020. it does not appear they have much to offer in terms of his ongoing abdominal distention. We ran out of medical interventions at this point and for the most part supportive measures only at this point. Right femoral line area discharge. We will remove the central line send the tip for the culture. Patient already receiving vancomycin and Zosyn I have explained all the medical interventions done during this hospitalization to the patient, Including general surgical evaluation and the recommendations. I also explained to him that we are running out of all the medical interventions the only thing we can do is to do intermittent paracentesis as indicated with his worsening abdominal distention's. Other than that there is not much we can offer besides ongoing dialysis. Patient expressed his understanding the nurse at the bedside. He can be transferred to the medical floor. He is tachycardic. I also counseled him on taking the medications regularly as he did not want to take last night his blood pressure medications and this morning he was quite tachycardic. Will provide IV Lopressor as needed. May not be able to go to medical floor as he may need IV Lopressor if his heart rate goes above 100. 1st I talked to Dr. Pierre general surgery briefly and the he would be able to see the patient early next week. Patient will stay this weekend and please place a consult for general surgery specifically to Dr. Pierre on Friday.
[2020-11-24] MEDS: Dextrose 5% in Water 1,000 ML IV SCH (16:33)
--- NOTE | 2020-11-24 17:17 | PRG ---
DATE OF SERVICE: 11/24/2020 SUBJECTIVE: Mr. Martínez was sitting in bed when I came in. He was apparently getting ready to go to the restroom. He is still with severe abdominal pain, waxing and waning. He has no respiratory symptoms. No back pain. Does not have much of urine output. He has been afebrile. OBJECTIVE: VITAL SIGNS: BP 120/80, respiratory rate 17, O2 saturation 95%. LUNGS: Clear. HEART: S1 and S2, regular rate. ABDOMEN: Has moderate ascites. Very tender. I percussed him on the left lower quadrant and he immediately started to feel intense abdominal pain. EXTREMITIES: Able to move all extremities. He has no edema. LABORATORY DATA: White cell count 6.6, hemoglobin 8.2, platelets 124, normal differential. INR 1.6, sodium 135, creatinine 5.73. His last liver panel showed normal transaminases and bilirubin. His alkaline phosphatase 168, that was from the . Albumin was 2.6. Cortisol was 15.9. Again, reviewing the Karius test showed no organisms identified in the plasma. The last imaging was an abdominal x-ray from November 13 with unremarkable exam. The last CT of abdomen was from November 11 with a contrast study and it showed ground-glass opacities, moderate right pleural effusion. Liver and spleen unremarkable. Pancreas unremarkable. Atrophic kidneys. Single loop of small bowel within the left upper quadrant, mildly dilated, fluid-filled measuring 3.4 cm. No wall thickening. No colitis or diverticulitis. There was large volume ascites, but no pneumoperitoneum. A calcified mass in the right pelvis likely representing a failed renal transplant. No lymphadenopathy was noted. No aneurysm. Reviewing the ascitic fluid, the last results with 175 wbc's; the previous result showed 735; the one in September, had 2400 wbc's. The cultures from the fluid have been negative. Blood cultures have been negative as well. ASSESSMENT AND DISCUSSION: Goodpasture syndrome with end-stage renal disease, prior failed renal transplant, currently on hemodialysis with fistula. Methicillin-resistant Staphylococcus aureus endocarditis, which required transfer to [place] for mitral valve replacement and then retreatment with apparent resolution of the infection as per negative follow up blood cultures and negative Karius test result. Now, with this chronic refractory peritonitis, although the fluid, WBC count has improved, the pain has persisted and is quite intense and prevents him from engaging in any type of meaningful activity. There is no leukocytosis, but the intensity of the pain is quite pronounced and I had discussed with Dr. Arciniega regarding maybe looking at his intraperitoneal area with laparoscope and see if we can identify the cause of peritonitis that might be leading to the symptoms the patient complains of. I think that Dr. Arciniega is going to come back on Friday and reassess the situation and see if that would be a reasonable thing to do. Job ID: [id number] MTDD
[2020-11-24 21:08] LABS: #Basophils 0.1 thou/uL (0.0-0.2); #Eosinphils 0.8 thou/uL (0.0-0.7); #Monocytes 0.4 thou/uL (0.11-0.59); #Neutrophils 4.3 thou/uL (1.40-6.50); %Basophils 0.8 % (0.0-1.0); %Eosinophils 12.1 % (0.0-10.0); %Lymphocytes 15.5 % (21.0-51.0); %Monocytes 6.1 % (0.0-10.0); %Neutrophils 65.5 % (42.0-75.0); Hemoglobin 8.6 g/dL (14.0-18.0); Mean Corpuscular HGB CONC 31.4 g/dL (32.0-36.0); Mean Corpuscular Hemoglobin 30.5 pg (27.0-31.0); Mean Corpuscular Volume 97.3 fL (78.0-98.0); Mean Platelet Volume 9.2 fL (7.4-10.4); Platelet Count 122 thou/uL (130-400); RBC Distribution Width 21.5 % (11.5-14.5); White Blood Cell (WBC) Count 6.6 thou/uL (4.8-10.8)
[2020-11-24 21:27] LABS: Anion Gap 18 mmol/L (10-20); BUN (Urea Nitrogen) 20 mg/dL (8.9-20.6); Calc. Creatinine Clearance 28 mL/min (70-130); Calcium 7.7 mg/dL (7.8-10.44); Carbon Dioxide 30 mmol/L (22-29); Chloride 93 mmol/L (98-107); Potassium 3.9 mmol/L (3.5-5.1); Sodium 137 mmol/L (136-145)
[2020-11-24 21:33] LABS: Glucose 57 mg/dL (70-105)
[2020-11-24] MEDS: Amitriptyline HCl 100 MG TAB PO SCH (23:00)
[2020-11-24] MEDS: diphenhydrAMINE 25 MG in Sodium Chloride 0.9% 50 ML IVPB SCH (23:02)
[2020-11-25] MEDS: Labetalol 100 MG TAB PO SCH ×2 (01:06→08:30)
[2020-11-25] MEDS: diphenhydrAMINE 25 MG in Sodium Chloride 0.9% 50 ML IVPB SCH ×4 (01:12→17:04)
[2020-11-25] MEDS: Morphine 2 MG/ML VIAL SLOW IVP PRN ×2 (03:14→08:32)
[2020-11-25] MEDS: hydrALAZINE 20 MG/ML VIAL SLOW IVP PRN (04:45)
[2020-11-25 04:46] LABS: #Eosinphils 0.8 thou/uL (0.0-0.7); #Lymphocytes 1.2 thou/uL (1.20-3.40); #Monocytes 0.7 thou/uL (0.11-0.59); %Basophils 0.5 % (0.0-1.0); %Eosinophils 11.7 % (0.0-10.0); %Lymphocytes 18.4 % (21.0-51.0); %Monocytes 10.2 % (0.0-10.0); %Neutrophils 59.2 % (42.0-75.0); Hemoglobin 8.6 g/dL (14.0-18.0); Mean Corpuscular HGB CONC 32.5 g/dL (32.0-36.0); Mean Corpuscular Hemoglobin 31.5 pg (27.0-31.0); Mean Corpuscular Volume 96.9 fL (78.0-98.0); Mean Platelet Volume 9.8 fL (7.4-10.4); Platelet Count 135 thou/uL (130-400); RBC Distribution Width 21.3 % (11.5-14.5); Red Blood Cell (RBC) Count 2.72 mill/uL (4.70-6.10); White Blood Cell (WBC) Count 6.7 thou/uL (4.8-10.8)
[2020-11-25 04:57] LABS: Anion Gap 21 mmol/L (10-20); BUN (Urea Nitrogen) 22 mg/dL (8.9-20.6); Calc. Creatinine Clearance 26 mL/min (70-130); Calcium 7.9 mg/dL (7.8-10.44); Carbon Dioxide 25 mmol/L (22-29); Chloride 93 mmol/L (98-107); Glucose 87 mg/dL (70-105); Potassium 4.3 mmol/L (3.5-5.1); Sodium 135 mmol/L (136-145)
[2020-11-25] MEDS ORDERED: Benzonatate 100 MG CAP PO PRN (07:52)
[2020-11-25] MEDS ORDERED: Zolpidem Tartrate 5 MG TAB PO PRN (07:52)
[2020-11-25] MEDS ORDERED: Bisacodyl 10 MG SUPP PR PRN (07:52)
[2020-11-25] MEDS ORDERED: Senokot S 8.6-50 MG TAB PO PRN (07:52)
[2020-11-25] MEDS ORDERED: Cepastat Lozenges 1 LOZ PO PRN (07:52)
[2020-11-25] MEDS ORDERED: Bisacodyl 5 MG TAB PO PRN (07:52)
[2020-11-25] MEDS ORDERED: Sodium Chloride 0.65% Nasal 44 ML BOT EA NARE PRN (07:52)
[2020-11-25] MEDS ORDERED: Calcium Carbonate 500 MG ChewTAB PO PRN (07:52)
[2020-11-25] MEDS ORDERED: Diabetic Tussin 200 MG/10 ML UDCUP PO PRN (07:52)
[2020-11-25] MEDS: cloNIDine 0.1 MG TAB PO SCH ×2 (08:28→15:29)
[2020-11-25] MEDS: Sevelamer Carbonate 800 MG TAB PO SCH ×3 (08:28→17:04)
[2020-11-25] MEDS: DULoxetine 60 MG CAP PO SCH (08:29)
[2020-11-25] MEDS: Gabapentin 100 MG CAP PO SCH (08:29)
[2020-11-25] MEDS: hydrALAZINE 25 MG TAB PO SCH ×2 (08:29→15:29)
[2020-11-25] MEDS: NIFEdipine XL 90 MG TAB PO SCH (08:31)
[2020-11-25] MEDS: Saccharomyces boulardii 250 MG CAP PO SCH (08:31)
[2020-11-25] MEDS: Rifampin 300 MG CAP PO SCH (08:31)
[2020-11-25] MEDS: Dextrose 5% in Water 1,000 ML IV SCH (08:46)
--- NOTE | 2020-11-25 09:42 | PRG ---
DATE OF SERVICE: 11/25/2020 SUBJECTIVE: A 25-year-old gentleman being seen for end-stage renal disease. The patient denies nausea, vomiting, chest pain. OBJECTIVE: GENERAL: The patient is awake and alert. VITAL SIGNS: Pulse 75, breathing at 16, blood pressure 133/65. HEENT: Head normocephalic and atraumatic. Eyes intact, no ulcers. Nose intact, no ulcers. Ears intact, no ulcers. Neck: Supple. No JVD. Chest: Symmetrical and clear. Cardiovascular: Shows S1 and S2, no rub, no murmur. Gastrointestinal: Abdomen is soft, bowel sounds positive. Extremities: Show no edema or ulcers. Skin: Shows no rash or petechiae. Musculoskeletal: Shows no joint swelling or stiffness. Genitourinary: Shows no Pimentel or CVA tenderness. Neurologic: Motor intact. Cranial nerves intact. LABORATORY DATA: Labs reviewed. ASSESSMENT AND PLAN: 1. Stage 6 chronic kidney disease. Plan: Dialysis. 2. Hypertension, stable. 3. Anemia, stable. 4. Medication based on GFR appropriate. Job ID: [id number]
--- NOTE | 2020-11-25 10:12 | PDOC.HOSPP ---
- Subjective Encounter Date: 11/25/20 Encounter Time: 08:45 Subjective: Patient continued to complain of abdominal pain, no fever, no nausea vomiting diarrhea, - Objective Vital Signs & Weight: Vital Signs (12 hours) Temp Pulse Resp BP BP Pulse Ox 11/25/20 07:22 99.6 F 93 20 133/65 95 11/25/20 05:46 96 11/25/20 04:00 99.8 F H 118 H 15 186/111 H 90 L 11/25/20 00:58 116 H 163/89 H 11/24/20 23:00 117 H 171/124 H Weight Admit Weight 185 lb 3.013 oz Weight 175 lb 7.807 oz Most Recent Monitor Data Heart Rate from ECG 90 NIBP 116/87 NIBP BP-Mean 96 Respiration from ECG 28 SpO2 98 I&O: 11/24/20 11/25/20 11/26/20 06:59 06:59 06:59 Intake Total 1390 2520 Output Total 500 0 Balance 890 2520 Result Diagrams: 11/25/20 03:36 11/25/20 03:36 Additional Labs: Accuchecks 11/25/20 11/25/20 11/25/20 05:16 01:25 00:12 POC Glucose 102 H 110 H 85 11/24/20 11/24/20 11/24/20 22:06 20:29 17:30 POC Glucose 62 L 61 L 102 H 11/24/20 12:44 POC Glucose 76 Radiology Reviewed by me: Yes EKG Reviewed by me: Yes Hospitalist ROS - Review of Systems Constitutional: reports: weakness. denies: fever, chills, sweats, malaise, other ENT: denies: ear pain, ear discharge, nose pain, nose discharge, nose congestion, mouth pain, mouth swelling, throat pain, throat swelling, other Respiratory: denies: cough, dry, shortness of breath, hemoptysis, SOB with excertion, pleuritic pain, sputum, wheezing, other Cardiovascular: denies: chest pain, palpitations, orthopnea, paroxysmal noc. dyspnea, edema, light headedness, other Gastrointestinal: reports: abdominal pain. denies: nausea, vomiting, diarrhea, constipation, melena, hematochezia, other Genitourinary: denies: dysuria, frequency, incontinence, hematuria, retention, other Musculoskeletal: denies: neck pain, shoulder pain, arm pain, back pain, hand pain, leg pain, foot pain, other Skin: denies: rash, lesions, suzanna, bruising, other - Medication Medications: Active Medications Generic Name Dose Route Start Last Admin Trade Name Freq PRN Reason Stop Dose Admin Hydrocodone Bitart/Acetaminophen 1 tab 11/17/20 13:47 11/17/20 14:13 Hydrocodone/Acetaminophen 5/325 Mg Tablet PO 1 tab Q6H PRN Administration Pain Al Hydroxide/Mg Hydroxide 30 ml 11/14/20 16:32 11/17/20 04:40 Mag-Al 1200 Mg/1200 Mg/30 Ml Udcup PO 30 ml Q6H PRN Administration Heartburn or Indigestion Amitriptyline HCl 100 mg 11/17/20 21:00 11/24/20 23:00 Amitriptyline Hcl 100 Mg Tab PO 100 mg QPM ALANNA Administration Clonidine 0.1 mg 11/19/20 09:00 11/25/20 08:28 Clonidine 0.1 Mg Tab PO 0.1 mg TID ALANNA Administration Dextrose/Water 25 gm 11/18/20 12:06 11/23/20 22:19 Dextrose 50% Abboject 50 Ml Syringe SLOW IVP 25 gm PRN PRN Administration Hypoglycemia Duloxetine HCl 60 mg 11/18/20 09:00 11/25/20 08:29 Duloxetine 60 Mg Cap PO 60 mg DAILY ALANNA Administration Epoetin John-epbx 20,000 unit 11/14/20 12:00 11/21/20 12:29 Epoetin John-Epbx (Esrd) 10,000 Unit/Ml Vial SC 20,000 unit Q7D ALANNA Administration Gabapentin 100 mg 11/11/20 21:00 11/25/20 08:29 Gabapentin 100 Mg Cap PO 100 mg BID ALANNA Administration Hydralazine HCl 10 mg 11/17/20 13:46 11/25/20 04:45 Hydralazine 20 Mg/Ml Vial SLOW IVP 10 mg Q4H PRN Administration SBP > 150 Hydralazine HCl 100 mg 11/25/20 09:00 11/25/20 08:29 Hydralazine 25 Mg Tab PO 100 mg TID ALANNA Administration Dextrose/Water 1,000 mls @ 30 mls/hr 11/24/20 10:00 11/25/20 08:46 D5w IV 1,000 mls .Q24H ALANNA Administration Diphenhydramine HCl 25 mg/ 50.5 mls @ 150 mls/hr 11/24/20 18:00 11/25/20 04:55 Sodium Chloride IVPB 50.5 mls Q6HR ALANNA Administration Labetalol HCl 600 mg 11/25/20 09:00 11/25/20 08:30 Labetalol 100 Mg Tab PO 600 mg BID ALANNA Administration Metoprolol Tartrate 5 mg 11/21/20 13:16 11/22/20 01:30 Metoprolol Tartrate 5 Mg/5 Ml Vial IVP 5 mg Q4H PRN Administration for HR > 90 or SBP>150 Morphine Sulfate 2 mg 11/25/20 07:53 11/25/20 08:32 Morphine 2 Mg/Ml Vial SLOW IVP 2 mg Q3H PRN Administration Severe Pain (7-10) Nifedipine 90 mg 11/17/20 21:00 11/25/20 08:31 Nifedipine Xl 90 Mg Tab PO 90 mg BID ALANNA Administration Ondansetron HCl 4 mg 11/13/20 22:27 11/23/20 09:49 Ondansetron Pf 4 Mg/2 Ml Vial IVP 4 mg Q6H PRN Administration Nausea/Vomiting Pantoprazole Sodium 40 mg 11/25/20 09:00 11/25/20 08:31 Pantoprazole 40 Mg Tab PO 40 mg DAILY ALANNA Administration Rifampin 300 mg 11/17/20 21:00 11/25/20 08:31 Rifampin 300 Mg Cap PO 300 mg BID ALANNA Administration Saccharomyces Boulardii 250 mg 11/18/20 09:00 11/25/20 08:31 Saccharomyces Boulardii 250 Mg Cap PO 250 mg DAILY ALANNA Administration Sevelamer Carbonate 2,400 mg 11/17/20 17:00 11/25/20 08:28 Sevelamer Carbonate 800 Mg Tab PO 2,400 mg TID-WM ALANNA Administration - Exam General Appearance: NAD, ill appearing Eye: PERRL, anicteric sclera ENT: normocephalic atraumatic, no oropharyngeal lesions Neck: symmetric, no JVD Heart: RRR, no murmur, no gallops, no rubs Respiratory: no wheezes, no rales, no ronchi Gastrointestinal: soft, tender to palpation Gastrointestinal - other findings: Ascites noted Extremities: no cyanosis, no clubbing, no edema Skin: normal turgor, no lesions Neurological: no focal deficits Musculoskeletal: normal tone, normal strength Psychiatric: normal affect, normal behavior Hosp A/P (1) Abdominal pain Code(s): R10.9 - UNSPECIFIED ABDOMINAL PAIN Status: Acute Qualifiers: Abdominal location: generalized Qualified Code(s): R10.84 - Generalized abdominal pain (2) Anemia of renal disease Code(s): D63.1 - ANEMIA IN CHRONIC KIDNEY DISEASE Status: Chronic (3) ESRD (end stage renal disease) on dialysis Code(s): N18.6 - END STAGE RENAL DISEASE; Z99.2 - DEPENDENCE ON RENAL DIALYSIS Status: Chronic (4) GERD (gastroesophageal reflux disease) Code(s): K21.9 - GASTRO-ESOPHAGEAL REFLUX DISEASE WITHOUT ESOPHAGITIS Status: Chronic Qualifiers: Esophagitis presence: without esophagitis Qualified Code(s): K21.9 - Gastro-esophageal reflux disease without esophagitis (5) H/O kidney transplant Status: Chronic (6) H/O mitral valve replacement Code(s): Z95.2 - PRESENCE OF PROSTHETIC HEART VALVE Status: Chronic (7) History of endocarditis Code(s): Z86.79 - PERSONAL HISTORY OF OTHER DISEASES OF THE CIRCULATORY SYSTEM Status: Chronic (8) Hypertension Code(s): I10 - ESSENTIAL (PRIMARY) HYPERTENSION Status: Chronic Qualifiers: Hypertension type: essential hypertension Qualified Code(s): I10 - Essential (primary) hypertension (9) Moderate protein-calorie malnutrition Code(s): E44.0 - MODERATE PROTEIN-CALORIE MALNUTRITION Status: Chronic (10) Secondary hyperparathyroidism of renal origin Code(s): N25.81 - SECONDARY HYPERPARATHYROIDISM OF RENAL ORIGIN Status: Chronic - Plan old records reviewed/req At this point all culture including peritoneal fluid culture and blood culture negative, Patient has several admission for abdominal pain, at this point time agree with doing laparoscopic evaluation, general surgery will do laparoscopic evaluation possibly on Friday, Meanwhile continue hemodialysis as per nephrology Medication reviewed and continue provide symptomatic and supportive care No new recommendation at this point, all consultants recommendation appreciated and noted,
--- NOTE | 2020-11-25 14:12 | EKG ---
Test Reason : Blood Pressure : / mmHG Vent. Rate : 070 BPM Atrial Rate : 070 BPM P-R Int : 212 ms QRS Dur : 102 ms QT Int : 484 ms P-R-T Axes : 028 014 012 degrees QTc Int : 522 ms Sinus rhythm with 1st degree A-V block Prolonged QT Abnormal ECG Confirmed by EDDY SHEPARD ([id number]), greeting card editor ZENA JOSEPH ([id number]) on 11/25/2020 2:12:19 PM Referred By: Confirmed By:EDDY SHEPARD
[2020-11-26] MEDS: diphenhydrAMINE 25 MG in Sodium Chloride 0.9% 50 ML IVPB SCH ×5 (00:31→15:25)
[2020-11-26] MEDS: Morphine 2 MG/ML VIAL SLOW IVP PRN ×5 (00:32→23:02)
[2020-11-26] MEDS: Amitriptyline HCl 100 MG TAB PO SCH ×2 (00:32→23:01)
[2020-11-26] MEDS: NIFEdipine XL 90 MG TAB PO SCH ×2 (00:32→08:12)
[2020-11-26] MEDS: cloNIDine 0.1 MG TAB PO SCH ×3 (00:32→15:24)
[2020-11-26] MEDS: Gabapentin 100 MG CAP PO SCH ×3 (00:34→23:01)
[2020-11-26] MEDS: hydrALAZINE 25 MG TAB PO SCH ×3 (00:34→15:25)
[2020-11-26] MEDS: Labetalol 100 MG TAB PO SCH ×2 (03:55→08:12)
[2020-11-26] MEDS: Rifampin 300 MG CAP PO SCH ×3 (03:57→23:02)
[2020-11-26] MEDS: DULoxetine 60 MG CAP PO SCH (08:14)
[2020-11-26] MEDS: Sevelamer Carbonate 800 MG TAB PO SCH ×3 (08:14→16:51)
[2020-11-26] MEDS: Saccharomyces boulardii 250 MG CAP PO SCH (08:15)
[2020-11-26] MEDS: Dextrose 5% in Water 1,000 ML IV SCH (09:48)
--- NOTE | 2020-11-26 10:44 | PDOC.HOSPP ---
- Subjective Encounter Date: 11/26/20 Encounter Time: 09:30 Subjective: Patient seen and examined bedside today, patient is at baseline level, he is sleepy, his blood pressure is also on lower side, he is always asking for pain medicine, - Objective Vital Signs & Weight: Vital Signs (12 hours) Temp Pulse Resp BP BP Pulse Ox 11/26/20 08:11 114/62 11/26/20 07:37 99.1 F 98 19 109/62 97 11/26/20 03:32 98.7 F 91 20 120/60 97 11/26/20 00:00 89 125/76 11/25/20 23:00 84 116/58 L Weight Admit Weight 185 lb 3.013 oz Weight 189 lb Most Recent Monitor Data Heart Rate from ECG 90 NIBP 116/87 NIBP BP-Mean 96 Respiration from ECG 28 SpO2 98 I&O: 11/25/20 11/26/20 11/27/20 06:59 06:59 06:59 Intake Total 2520 2750 Output Total 0 0 Balance 2520 2750 Result Diagrams: 11/25/20 03:36 11/25/20 03:36 Additional Labs: Accuchecks 11/26/20 11/25/20 11/25/20 06:06 20:27 17:23 POC Glucose 96 88 116 H 11/25/20 11:44 POC Glucose 101 H EKG Reviewed by me: Yes (Sinus rhythm) Hospitalist ROS - Review of Systems Other: Today patient was not able to participate with review of system, he was sleepy after pain medication, - Medication Medications: Active Medications Generic Name Dose Route Start Last Admin Trade Name Judsonq PRN Reason Stop Dose Admin Hydrocodone Bitart/Acetaminophen 1 tab 11/17/20 13:47 11/17/20 14:13 Hydrocodone/Acetaminophen 5/325 Mg Tablet PO 1 tab Q6H PRN Administration Pain Al Hydroxide/Mg Hydroxide 30 ml 11/14/20 16:32 11/17/20 04:40 Mag-Al 1200 Mg/1200 Mg/30 Ml Udcup PO 30 ml Q6H PRN Administration Heartburn or Indigestion Amitriptyline HCl 100 mg 11/17/20 21:00 11/26/20 00:32 Amitriptyline Hcl 100 Mg Tab PO 100 mg QPM ALANNA Administration Clonidine 0.1 mg 11/19/20 09:00 11/26/20 08:11 Clonidine 0.1 Mg Tab PO Not Given TID ALANNA Dextrose/Water 25 gm 11/18/20 12:06 11/23/20 22:19 Dextrose 50% Abboject 50 Ml Syringe SLOW IVP 25 gm PRN PRN Administration Hypoglycemia Duloxetine HCl 60 mg 11/18/20 09:00 11/26/20 08:14 Duloxetine 60 Mg Cap PO 60 mg DAILY ALANNA Administration Epoetin John-epbx 20,000 unit 11/14/20 12:00 11/21/20 12:29 Epoetin John-Epbx (Esrd) 10,000 Unit/Ml Vial SC 20,000 unit Q7D ALANNA Administration Gabapentin 100 mg 11/11/20 21:00 11/26/20 08:14 Gabapentin 100 Mg Cap PO 100 mg BID ALANNA Administration Hydralazine HCl 10 mg 11/17/20 13:46 11/25/20 04:45 Hydralazine 20 Mg/Ml Vial SLOW IVP 10 mg Q4H PRN Administration SBP > 150 Hydralazine HCl 100 mg 11/25/20 09:00 11/26/20 08:11 Hydralazine 25 Mg Tab PO Not Given TID ALANNA Dextrose/Water 1,000 mls @ 30 mls/hr 11/24/20 10:00 11/26/20 09:48 D5w IV 1,000 mls .Q24H ALANNA Administration Diphenhydramine HCl 25 mg/ 50.5 mls @ 150 mls/hr 11/26/20 10:00 11/26/20 09:48 Sodium Chloride IVPB 50.5 mls 0400,1000,1600,2200 ALANNA Administration Labetalol HCl 600 mg 11/25/20 09:00 11/26/20 08:12 Labetalol 100 Mg Tab PO Not Given BID ALANNA Metoprolol Tartrate 5 mg 11/21/20 13:16 11/22/20 01:30 Metoprolol Tartrate 5 Mg/5 Ml Vial IVP 5 mg Q4H PRN Administration for HR > 90 or SBP>150 Morphine Sulfate 2 mg 11/25/20 07:53 11/26/20 08:16 Morphine 2 Mg/Ml Vial SLOW IVP 2 mg Q3H PRN Administration Severe Pain (7-10) Nifedipine 90 mg 11/17/20 21:00 11/26/20 08:12 Nifedipine Xl 90 Mg Tab PO Not Given BID ALANNA Ondansetron HCl 4 mg 11/13/20 22:27 11/23/20 09:49 Ondansetron Pf 4 Mg/2 Ml Vial IVP 4 mg Q6H PRN Administration Nausea/Vomiting Pantoprazole Sodium 40 mg 11/25/20 09:00 11/26/20 08:15 Pantoprazole 40 Mg Tab PO 40 mg DAILY ALANNA Administration Rifampin 300 mg 11/17/20 21:00 11/26/20 08:15 Rifampin 300 Mg Cap PO 300 mg BID ALANNA Administration Saccharomyces Boulardii 250 mg 11/18/20 09:00 11/26/20 08:15 Saccharomyces Boulardii 250 Mg Cap PO 250 mg DAILY ALANNA Administration Sevelamer Carbonate 2,400 mg 11/17/20 17:00 11/26/20 08:14 Sevelamer Carbonate 800 Mg Tab PO 2,400 mg TID-WM ALANNA Administration - Exam General Appearance: NAD, ill appearing General - other findings: Chronically ill Eye: PERRL, anicteric sclera ENT: normocephalic atraumatic, no oropharyngeal lesions Neck: supple, symmetric, no JVD, no thyromegaly Heart: RRR, no murmur, no gallops, no rubs Respiratory: no wheezes, no rales, no ronchi Gastrointestinal: soft, non-distended, normal bowel sounds Gastrointestinal - other findings: Subjective tenderness Extremities: no cyanosis, no clubbing, no edema Skin: normal turgor, no lesions Neurological - other findings: Patient moves all 4 limbs, Musculoskeletal: normal tone, normal strength Psychiatric: somnolent Hosp A/P (1) Abdominal pain Code(s): R10.9 - UNSPECIFIED ABDOMINAL PAIN Status: Acute Qualifiers: Abdominal location: generalized Qualified Code(s): R10.84 - Generalized abdominal pain (2) Anemia of renal disease Code(s): D63.1 - ANEMIA IN CHRONIC KIDNEY DISEASE Status: Chronic (3) ESRD (end stage renal disease) on dialysis Code(s): N18.6 - END STAGE RENAL DISEASE; Z99.2 - DEPENDENCE ON RENAL DIALYSIS Status: Chronic (4) GERD (gastroesophageal reflux disease) Code(s): K21.9 - GASTRO-ESOPHAGEAL REFLUX DISEASE WITHOUT ESOPHAGITIS Status: Chronic Qualifiers: Esophagitis presence: without esophagitis Qualified Code(s): K21.9 - Gastro-esophageal reflux disease without esophagitis (5) H/O kidney transplant Status: Chronic (6) H/O mitral valve replacement Code(s): Z95.2 - PRESENCE OF PROSTHETIC HEART VALVE Status: Chronic (7) History of endocarditis Code(s): Z86.79 - PERSONAL HISTORY OF OTHER DISEASES OF THE CIRCULATORY SYSTEM Status: Chronic (8) Hypertension Code(s): I10 - ESSENTIAL (PRIMARY) HYPERTENSION Status: Chronic Qualifiers: Hypertension type: essential hypertension Qualified Code(s): I10 - Essential (primary) hypertension (9) Moderate protein-calorie malnutrition Code(s): E44.0 - MODERATE PROTEIN-CALORIE MALNUTRITION Status: Chronic (10) Secondary hyperparathyroidism of renal origin Code(s): N25.81 - SECONDARY HYPERPARATHYROIDISM OF RENAL ORIGIN Status: Chronic - Plan old records reviewed/req At this point all culture including peritoneal fluid culture and blood culture negative, Patient has several admission for abdominal pain, at this point time agree with doing laparoscopic evaluation, general surgery will do laparoscopic evaluation possibly on Friday, Meanwhile continue hemodialysis as per nephrology Medication reviewed and continue provide symptomatic and supportive care We will hold his blood pressure medication if systolic blood pressure is less than 130 and will hold pain medication if patient remains sleepy
--- NOTE | 2020-11-26 11:38 | PRG ---
DATE OF SERVICE: 11/26/2020 SUBJECTIVE: A 25-year-old gentleman being seen for end-stage renal disease. The patient denies any nausea, vomiting, or chest pain. OBJECTIVE: GENERAL: The patient is awake and alert. VITAL SIGNS: Pulse 75, breathing 16, and blood pressure 109/62. HEENT: Head normocephalic and atraumatic. Eyes intact, no ulcers. Nose intact, no ulcers. Ears intact, no ulcers. NECK: Supple. No JVD. CHEST: Symmetrical and clear. CARDIOVASCULAR: Shows S1 and S2, no rub, no murmur. GASTROINTESTINAL: Abdomen is soft, bowel sounds positive. EXTREMITIES: Show no edema or ulcers. SKIN: Shows no rash or petechiae. MUSCULOSKELETAL: Shows no joint swelling or stiffness. GENITOURINARY: Shows no Pimentel or CVA tenderness. NEUROLOGIC: Motor intact. Cranial nerves intact. LABORATORY DATA: Show hemoglobin 8.6. ASSESSMENT AND PLAN: 1. Stage 6 chronic kidney disease. Plan, dialysis. 2. Hypertension, stable. 3. Anemia, stable. 4. Medication based on GFR, appropriate. Job ID: [id number]
[2020-11-26] MEDS: Ondansetron PF 4 MG/2 ML Vial IVP PRN (15:25)
[2020-11-27] MEDS: diphenhydrAMINE 25 MG in Sodium Chloride 0.9% 50 ML IVPB SCH ×5 (03:26→21:41)
[2020-11-27] MEDS: hydrALAZINE 25 MG TAB PO SCH ×4 (03:57→21:34)
[2020-11-27] MEDS: Labetalol 100 MG TAB PO SCH ×3 (03:57→21:34)
[2020-11-27] MEDS: cloNIDine 0.1 MG TAB PO SCH ×4 (03:57→21:33)
[2020-11-27] MEDS: NIFEdipine XL 90 MG TAB PO SCH ×3 (03:57→21:34)
[2020-11-27] MEDS: Dextrose 50% Abboject 50 ML SYRINGE SLOW IVP PRN (05:46)
[2020-11-27] MEDS: Sevelamer Carbonate 800 MG TAB PO SCH ×3 (09:11→18:11)
[2020-11-27] MEDS: Rifampin 300 MG CAP PO SCH ×2 (09:11→21:36)
[2020-11-27] MEDS: DULoxetine 60 MG CAP PO SCH (09:12)
[2020-11-27] MEDS: Gabapentin 100 MG CAP PO SCH ×2 (09:13→21:36)
[2020-11-27] MEDS: Saccharomyces boulardii 250 MG CAP PO SCH (09:13)
[2020-11-27] MEDS: Morphine 2 MG/ML VIAL SLOW IVP PRN ×2 (09:13→21:42)
[2020-11-27] MEDS ORDERED: Dexamethasone 20 MG/5 ML VIAL ONE (10:26)
[2020-11-27] MEDS ORDERED: Ondansetron PF 4 MG/2 ML Vial ONE (10:26)
[2020-11-27] MEDS ORDERED: Rocuronium Bromide 10 MG/ML (10ML VIAL) ONE (10:26)
[2020-11-27] MEDS ORDERED: PROPOFOL 200 MG/20 ML VIAL ONE (10:26)
[2020-11-27] MEDS ORDERED: Lidocaine 1% PF 5 ML VIAL ONE (10:26)
[2020-11-27] MEDS ORDERED: Glycopyrrolate 0.2 MG/ML 5 ML SYRINGE ONE (10:26)
[2020-11-27] MEDS ORDERED: Midazolam HCl 2 mg/2 ml Vial ONE (10:47)
[2020-11-27] MEDS ORDERED: Fentanyl 100 MCG/2 ML VIAL ONE (10:47)
[2020-11-27] MEDS ORDERED: Simethicone 40 MG/0.6 ML Drop 30 ML BOT PO PRN (10:49)
[2020-11-27] MEDS ORDERED: Bupivacaine PF 0.5% 30 ML VIAL ONE (11:04)
[2020-11-27] MEDS ORDERED: EPINEPHrine 1 MG/ML AMP ONE (11:04)
[2020-11-27 11:08] LABS: #Eosinphils 0.7 thou/uL (0.0-0.7); #Lymphocytes 1.2 thou/uL (1.20-3.40); #Monocytes 0.5 thou/uL (0.11-0.59); #Neutrophils 2.5 thou/uL (1.40-6.50); %Basophils 0.5 % (0.0-1.0); %Eosinophils 13.7 % (0.0-10.0); %Lymphocytes 25.1 % (21.0-51.0); %Monocytes 9.3 % (0.0-10.0); %Neutrophils 51.4 % (42.0-75.0); Hemoglobin 8.3 g/dL (14.0-18.0); Mean Corpuscular Hemoglobin 31.1 pg (27.0-31.0); Mean Corpuscular Volume 97.1 fL (78.0-98.0); Mean Platelet Volume 9.7 fL (7.4-10.4); Platelet Count 108 thou/uL (130-400); RBC Distribution Width 21.4 % (11.5-14.5); Red Blood Cell (RBC) Count 2.65 mill/uL (4.70-6.10); White Blood Cell (WBC) Count 4.9 thou/uL (4.8-10.8)
[2020-11-27] MEDS: Dextrose 5% in Water 1,000 ML IV SCH (11:25)
[2020-11-27 11:27] LABS: Anion Gap 19 mmol/L (10-20); BUN (Urea Nitrogen) 38 mg/dL (8.9-20.6); Calc. Creatinine Clearance 19 mL/min (70-130); Calcium 7.9 mg/dL (7.8-10.44); Carbon Dioxide 26 mmol/L (22-29); Chloride 92 mmol/L (98-107); Glucose 72 mg/dL (70-105); Potassium 5.3 mmol/L (3.5-5.1); Sodium 132 mmol/L (136-145)
--- NOTE | 2020-11-27 11:48 | CON ---
DATE OF CONSULTATION: HISTORY OF PRESENT ILLNESS: Estee Martínez is a 25-year-old black male with end-stage renal disease, on hemodialysis. He has had a transplant in the past that had failed. His left arm fistula has fallen. He has a new right arm fistula that I established. He had transpose in [place] and using that for dialysis. He, for the past 3 months, has had abdominal pain. He has had upper endoscopies without etiology. He has had paracentesis, 4 to 5 L. He has a prosthetic mitral valve. His echocardiogram reveals good cardiac function. Good valvular function. Good EF. CAT scan does not reveal the etiology to his ascites and abdominal pain. The patient has been in the hospital for several weeks, COVID negative, complaining of abdominal pain. The pain is not resolving. He is admitted to the hospitalist, seen by Dr. Grayson, and Dr. Briggs. I have been asked to see him regarding diagnostic laparoscopy to discern the etiology of his pain. CAT scan of the abdomen and pelvis on 11/11/2020 reveals large volume ascites, single loop of bowel distended, some chronic lung changes. No other etiology discovered. In the past, he had seen by Cardiology and GI, Dr. Ragland saw him in June [address] Saini prior to that. PAST MEDICAL HISTORY: End-stage renal disease, failed renal transplant, prosthetic mitral valve replacement, AV fistula placements as discussed. SOCIAL HISTORY: Tobacco and alcohol use, none. ALLERGIES: NONE. MEDICATIONS: At home: 1. Labetalol. 2. Duloxetine. 3. Amitriptyline. 4. Clonidine. 5. Renvela. 6. Tramadol. 7. Tylenol No. 3. REVIEW OF SYSTEMS: Noncontributory. FAMILY HISTORY: Noncontributory. PHYSICAL EXAMINATION: VITAL SIGNS: 98 degrees, 94, 107/71, 6 feet 1 inches, 189 pounds, 24.9 BMI. HEAD, EARS, EYES, NOSE AND THROAT: Unremarkable. LUNGS: Clear to auscultation. CARDIAC: Regular rate and rhythm without murmur or gallop ABDOMEN: Distended, protuberant. Mild guarding throughout without peritoneal signs. No hernia is evident. EXTREMITIES: Right upper arm, largely distended basilic vein fistula. Extremities thin. LABORATORY DATA: White count 4, hemoglobin 8.3 this morning. Basic metabolic profile pending. Type and screen ordered. ASSESSMENT AND PLAN: Abdominal pain of uncertain etiology. Hepatitis serology has been negative. COVID negative. Past EGD has been unrevealing. CAT scan of his abdomen and pelvis unrevealing. Ultrasounds multiple reveals intermittent ascites without obvious cause. Cultures of the ascites fluid have been negative. Cytology negative. Plan is for laparoscopy. Whether this will resolve the patient's complaints, I am unsure it is unlikely. We will look for other etiologies of his pain. Risks and benefits explained. Possibility of open laparotomy discussed. He consents. The procedure is indicated. Job ID: [id number]
--- NOTE | 2020-11-27 12:01 | PRG ---
DATE OF SERVICE: 11/27/2020 SUBJECTIVE: Patient was seen and examined at bedside and overnight events noted. Patient denies any shortness of breath or chest pain or palpitation. No history of nausea or vomiting or diarrhea or fever or chills or cramps. OBJECTIVE: General: This is a well-built male, in no apparent distress. Vital Signs: Temperature 98.0. Heart rate 74. Respiratory rate 18. Blood pressure 107/71. HEENT: Atraumatic, normocephalic. Oral mucosa is moist. NECK: Supple. CARDIOVASCULAR: S1, S2 heard. Rate and rhythm regular. RESPIRATORY: Clear to auscultation. GASTROINTESTINAL: Abdomen is soft. MUSCULOSKELETAL: No tenderness. No edema. DERMATOLOGIC: No skin rash. NEUROLOGIC: Alert and awake and oriented x3. No focal neurologic deficits. Moving all the extremities. PSYCHIATRIC: Mood and affect normal. LABORATORY DATA: Potassium 5.3, BUN is 38, creatinine is 7.3. ASSESSMENT AND PLAN: 1. End-stage renal disease. Plan to evaluate. Continue dialysis on Friday, Friday, Friday. 2. Hyperkalemia. 3. Hypertension. 4. Anemia of chronic disease. 5. Edema. Plan to have dialysis today as tolerated. Job ID: [id number]
[2020-11-27] MEDS ORDERED: Dextrose 50% Abboject 50 ML SYRINGE ONE (12:29)
[2020-11-27] MEDS ORDERED: Levofloxacin 500 mg/D5W 100 ml Premix Bag ONE (13:24)
--- NOTE | 2020-11-27 15:33 | OP ---
DATE OF PROCEDURE: 11/27/2020 PREOPERATIVE DIAGNOSES: End-stage renal disease, renal transplant rejection, refractory ascites, abdominal pain of uncertain etiology, prosthetic mitral valve, normal cardiac ejection fraction. POSTOPERATIVE DIAGNOSES: End-stage renal disease, renal transplant rejection, refractory ascites, abdominal pain of uncertain etiology, prosthetic mitral valve, normal cardiac ejection fraction with pelvic inflammatory reaction with old hematoma and inflammation. No obstructive process. PROCEDURE: Diagnostic laparoscopy, evacuation of 7 L of ascites fluid submitted for cytology, fungal and TB and yeast and cultures and bacterial. No others findings noted to cause this ascites except for this severe inflammatory reaction probably from his renal transplant with hematoma type findings and chronic inflammation. ANESTHESIA: General anesthesia, local with 0.5% Marcaine 30 mL mixed with 1% Xylocaine with epinephrine 20 mL. DESCRIPTION OF PROCEDURE: The patient was taken to the operating room, where under general anesthesia, left femoral vein catheter was placed after ChloraPrep. Seldinger technique was used to place a central line secured with 3-0 silk suture and sterile dressing applied. Each port aspirated. Blood flushed with saline solution. Abdomen prepared with ChloraPrep and draped in routine fashion. Left lateral subcostal incision made, pneumoperitoneum to 15 mmHg was obtained with a Veress needle, replaced with a 5 port. Left lateral mid abdominal incision made and a 5 port placed. Left lower quadrant lateral incision made and a 5 port placed. 7 L of ascites evacuated, cleared, submitted to cytology microbiology. Once this had been all evacuated, decompressed the abdomen of 7 L of ascites fluid. Abdominal cavity was inspected. There was no evidence of small-bowel abnormalities. No dilatation noted. No obstruction. Colon looked normal. There were some inflammatory adhesions in the pelvis that when bluntly taken down noted to be a pelvic hematoma probably from his transplant rejection process. No significant adhesive process was noted. Liver appeared to be slightly enlarged, but normal, was not cirrhotic at all. Once the ascites had been evacuated, pneumoperitoneum evacuated, all instruments were removed. All skin incisions approximated with interrupted subdermal 4-0 Monocryl and Dermabond applied. Job ID: [id number]
--- NOTE | 2020-11-27 18:53 | PDOC.HOSPP ---
- Subjective Encounter Date: 11/27/20 Subjective: sleepy, reports being hungry. - Objective Vital Signs & Weight: Vital Signs (12 hours) Temp Pulse Resp BP Pulse Ox 11/27/20 18:00 86 11/27/20 16:50 86 103/62 11/27/20 12:10 97.8 F 94 20 124/76 100 11/27/20 07:31 98.0 F 94 18 107/71 97 Weight Admit Weight 185 lb 3.013 oz Weight 189 lb Most Recent Monitor Data Heart Rate from ECG 90 NIBP 116/87 NIBP BP-Mean 96 Respiration from ECG 28 SpO2 98 I&O: 11/26/20 11/27/20 11/28/20 06:59 06:59 06:59 Intake Total 2750 3010 430 Output Total 0 0 Balance 2750 3010 430 Result Diagrams: 11/27/20 10:44 11/27/20 10:44 Additional Labs: Accuchecks 11/27/20 11/27/20 11/27/20 17:28 12:28 10:21 POC Glucose 80 63 L 82 11/27/20 11/27/20 11/26/20 06:32 05:15 20:33 POC Glucose 127 H 48 L* 78 11/24/20 11/24/20 11/23/20 07:26 06:23 22:08 POC Glucose 85 69 L 33 L* 11/23/20 11/23/20 11/23/20 17:37 11:41 11:02 POC Glucose 52 L* 78 34 L* Hospitalist ROS - Medication Medications: Active Medications Generic Name Dose Route Start Last Admin Trade Name Freq PRN Reason Stop Dose Admin Al Hydroxide/Mg Hydroxide 30 ml 11/14/20 16:32 11/17/20 04:40 Mag-Al 1200 Mg/1200 Mg/30 Ml Udcup PO 30 ml Q6H PRN Administration Heartburn or Indigestion Amitriptyline HCl 100 mg 11/17/20 21:00 11/26/20 23:01 Amitriptyline Hcl 100 Mg Tab PO 100 mg QPM ALANNA Administration Clonidine 0.1 mg 11/19/20 09:00 11/27/20 18:00 Clonidine 0.1 Mg Tab PO Not Given TID ALANNA Dextrose/Water 25 gm 11/18/20 12:06 11/27/20 05:46 Dextrose 50% Abboject 50 Ml Syringe SLOW IVP 25 gm PRN PRN Administration Hypoglycemia Duloxetine HCl 60 mg 11/18/20 09:00 11/27/20 09:12 Duloxetine 60 Mg Cap PO 60 mg DAILY ALANNA Administration Epoetin John-epbx 20,000 unit 11/14/20 12:00 11/21/20 12:29 Epoetin John-Epbx (Esrd) 10,000 Unit/Ml Vial SC 20,000 unit Q7D ALANNA Administration Gabapentin 100 mg 11/11/20 21:00 11/27/20 09:13 Gabapentin 100 Mg Cap PO 100 mg BID ALANNA Administration Glucagon 1 mg 11/18/20 12:06 11/27/20 05:21 Glucagon 1 Mg/Ml Vial IM 1 mg PRN PRN Administration Hypoglycemia Hydralazine HCl 10 mg 11/17/20 13:46 11/25/20 04:45 Hydralazine 20 Mg/Ml Vial SLOW IVP 10 mg Q4H PRN Administration SBP > 150 Hydralazine HCl 100 mg 11/25/20 09:00 11/27/20 18:00 Hydralazine 25 Mg Tab PO Not Given TID [facility] Dextrose/Water 1,000 mls @ 30 mls/hr 11/24/20 10:00 11/27/20 11:25 D5w IV Not Given .Q24H [facility] Diphenhydramine HCl 25 mg/ 50.5 mls @ 150 mls/hr 11/26/20 10:00 11/27/20 09:14 Sodium Chloride IVPB 50.5 mls 0400,1000,1600,2200 ALANNA Administration Labetalol HCl 600 mg 11/25/20 09:00 11/27/20 09:11 Labetalol 100 Mg Tab PO Not Given BID ALANNA Metoprolol Tartrate 5 mg 11/21/20 13:16 11/22/20 01:30 Metoprolol Tartrate 5 Mg/5 Ml Vial IVP 5 mg Q4H PRN Administration for HR > 90 or SBP>150 Morphine Sulfate 2 mg 11/25/20 07:53 11/27/20 09:13 Morphine 2 Mg/Ml Vial SLOW IVP 2 mg Q3H PRN Administration Severe Pain (7-10) Nifedipine 90 mg 11/17/20 21:00 11/27/20 09:11 Nifedipine Xl 90 Mg Tab PO Not Given BID ALANNA Ondansetron HCl 4 mg 11/13/20 22:27 11/26/20 15:25 Ondansetron Pf 4 Mg/2 Ml Vial IVP 4 mg Q6H PRN Administration Nausea/Vomiting Pantoprazole Sodium 40 mg 11/25/20 09:00 11/27/20 09:13 Pantoprazole 40 Mg Tab PO 40 mg DAILY ALANNA Administration Rifampin 300 mg 11/17/20 21:00 11/27/20 09:11 Rifampin 300 Mg Cap PO 300 mg BID ALANNA Administration Saccharomyces Boulardii 250 mg 11/18/20 09:00 11/27/20 09:13 Saccharomyces Boulardii 250 Mg Cap PO 250 mg DAILY ALANNA Administration Sevelamer Carbonate 2,400 mg 11/17/20 17:00 11/27/20 18:11 Sevelamer Carbonate 800 Mg Tab PO Not Given TID-WM ALANNA Sodium Chloride 10 ml 11/27/20 09:00 11/27/20 09:13 Flush - Normal Saline 10 Ml Syringe IVF 10 ml Q12HR ALANNA Administration - Exam General Appearance: awake alert Eye: PERRL ENT: normocephalic atraumatic Neck: supple, symmetric Heart: RRR, murmur present Respiratory: CTAB, no wheezes, no rales Gastrointestinal: no rigidity, tender to palpation, distended Extremities: no cyanosis Skin: normal turgor Hosp A/P (1) ESRD (end stage renal disease) Code(s): N18.6 - END STAGE RENAL DISEASE Status: Acute (2) Diabetes Code(s): E11.9 - TYPE 2 DIABETES MELLITUS WITHOUT COMPLICATIONS Status: Acute (3) Hypothyroidism Code(s): E03.9 - HYPOTHYROIDISM, UNSPECIFIED Status: Acute (4) Abdominal pain Code(s): R10.9 - UNSPECIFIED ABDOMINAL PAIN Status: Acute Qualifiers: Abdominal location: generalized Qualified Code(s): R10.84 - Generalized abdominal pain - Plan he is post exp laparotomy with removal of large amount of ascites, he is currently receiving HD, he reports being hungry. will start him on clear liquids. will recheck his labs in am.
[2020-11-27] MEDS: Amitriptyline HCl 100 MG TAB PO SCH (21:36)
[2020-11-28] MEDS: diphenhydrAMINE 25 MG in Sodium Chloride 0.9% 50 ML IVPB SCH ×4 (03:22→22:17)
[2020-11-28] MEDS: Morphine 2 MG/ML VIAL SLOW IVP PRN ×5 (03:23→21:56)
[2020-11-28 04:08] LABS: #Eosinphils 0.2 thou/uL (0.0-0.7); #Lymphocytes 1.1 thou/uL (1.20-3.40); #Monocytes 0.3 thou/uL (0.11-0.59); #Neutrophils 2.4 thou/uL (1.40-6.50); %Eosinophils 4.7 % (0.0-10.0); %Lymphocytes 28.6 % (21.0-51.0); %Monocytes 6.6 % (0.0-10.0); Hemoglobin 8.2 g/dL (14.0-18.0); Mean Corpuscular HGB CONC 31.5 g/dL (32.0-36.0); Mean Corpuscular Hemoglobin 30.6 pg (27.0-31.0); Mean Corpuscular Volume 97.3 fL (78.0-98.0); Mean Platelet Volume 10.5 fL (7.4-10.4); Platelet Count 93 thou/uL (130-400); RBC Distribution Width 21.1 % (11.5-14.5); Red Blood Cell (RBC) Count 2.67 mill/uL (4.70-6.10)
[2020-11-28 04:19] LABS: Anion Gap 18 mmol/L (10-20); BUN (Urea Nitrogen) 27 mg/dL (8.9-20.6); Calc. Creatinine Clearance 26 mL/min (70-130); Calcium 7.5 mg/dL (7.8-10.44); Carbon Dioxide 26 mmol/L (22-29); Chloride 97 mmol/L (98-107); Glucose 108 mg/dL (70-105); Potassium 5.1 mmol/L (3.5-5.1); Sodium 136 mmol/L (136-145)
[2020-11-28] MEDS: Sevelamer Carbonate 800 MG TAB PO SCH ×3 (08:06→18:22)
[2020-11-28] MEDS: DULoxetine 60 MG CAP PO SCH (08:07)
[2020-11-28] MEDS: Saccharomyces boulardii 250 MG CAP PO SCH (08:07)
[2020-11-28] MEDS: Gabapentin 100 MG CAP PO SCH ×2 (08:07→21:42)
[2020-11-28] MEDS: hydrALAZINE 25 MG TAB PO SCH ×3 (08:08→21:46)
[2020-11-28] MEDS: Labetalol 100 MG TAB PO SCH ×2 (08:08→21:46)
[2020-11-28] MEDS: NIFEdipine XL 90 MG TAB PO SCH ×2 (08:08→21:46)
[2020-11-28] MEDS: cloNIDine 0.1 MG TAB PO SCH ×3 (08:08→21:46)
[2020-11-28] MEDS: Dextrose 5% in Water 1,000 ML IV SCH (09:37)
--- NOTE | 2020-11-28 11:06 | PRG ---
DATE OF SERVICE: 11/28/2020 SUBJECTIVE: Patient was seen and examined at bedside and overnight events noted. Patient denies any shortness of breath or chest pain or palpitation. No history of nausea or vomiting or diarrhea or fever or chills or cramps. OBJECTIVE: GENERAL: This is well-built male, in no apparent distress. VITAL SIGNS: Temperature 97.8, pulse 105, respiratory rate 18, and blood pressure 116/73. HEENT: Atraumatic, normocephalic. Oral mucosa is moist. NECK: Supple. CARDIOVASCULAR: S1, S2 heard. Rate and rhythm regular. RESPIRATORY: Clear to auscultation. GASTROINTESTINAL: Abdomen is soft. MUSCULOSKELETAL: No tenderness. No edema. DERMATOLOGIC: No skin rash. NEUROLOGIC: Alert and awake and oriented x3. No focal neurologic deficits. Moving all the extremities. PSYCHIATRIC: Mood and affect normal. LABORATORY DATA: Potassium 5.1, BUN is 27, creatinine is 5.3. ASSESSMENT AND PLAN: 1. End-stage renal disease. We will continue on dialysis as tolerated. We will continue on dialysis Friday, Friday, and Friday. 2. History of hypertension. 3. Anemia. 4. Edema, stable. 5. Chronic pain. We will continue on dialysis as tolerated. Job ID: [id number]
--- NOTE | 2020-11-28 12:59 | PDOC.HOSPP ---
- Subjective Encounter Date: 11/28/20 Subjective: continues to report pain but seems that he is a bit improved. - Objective Vital Signs & Weight: Vital Signs (12 hours) Temp Pulse Resp BP Pulse Ox 11/28/20 11:59 97.6 F 105 H 18 116/78 99 11/28/20 07:59 97.8 F 105 H 18 116/73 94 L 11/28/20 03:51 99.4 F 100 20 103/69 96 Weight Admit Weight 185 lb 3.013 oz Weight 188 lb Most Recent Monitor Data Heart Rate from ECG 90 NIBP 116/87 NIBP BP-Mean 96 Respiration from ECG 28 SpO2 98 I&O: 11/27/20 11/28/20 11/29/20 06:59 06:59 06:59 Intake Total 3010 1410 Output Total 0 0 Balance 3010 1410 Result Diagrams: 11/28/20 03:19 11/28/20 03:19 Additional Labs: Accuchecks 11/28/20 11/28/20 11/27/20 11:08 06:06 20:40 POC Glucose 102 H 133 H 87 11/27/20 11/27/20 11/27/20 17:28 14:28 06:32 POC Glucose 80 68 L 127 H 11/27/20 11/24/20 11/24/20 05:15 07:26 06:23 POC Glucose 48 L* 85 69 L Hospitalist ROS - Medication Medications: Active Medications Generic Name Dose Route Start Last Admin Trade Name Freq PRN Reason Stop Dose Admin Al Hydroxide/Mg Hydroxide 30 ml 11/14/20 16:32 11/17/20 04:40 Mag-Al 1200 Mg/1200 Mg/30 Ml Udcup PO 30 ml Q6H PRN Administration Heartburn or Indigestion Amitriptyline HCl 100 mg 11/17/20 21:00 11/27/20 21:36 Amitriptyline Hcl 100 Mg Tab PO 100 mg QPM ALANNA Administration Clonidine 0.1 mg 11/19/20 09:00 11/28/20 08:08 Clonidine 0.1 Mg Tab PO Not Given TID ALANNA Dextrose/Water 25 gm 11/18/20 12:06 11/27/20 05:46 Dextrose 50% Abboject 50 Ml Syringe SLOW IVP 25 gm PRN PRN Administration Hypoglycemia Duloxetine HCl 60 mg 11/18/20 09:00 11/28/20 08:07 Duloxetine 60 Mg Cap PO 60 mg DAILY ALANNA Administration Epoetin John-epbx 20,000 unit 11/14/20 12:00 11/21/20 12:29 Epoetin John-Epbx (Esrd) 10,000 Unit/Ml Vial SC 20,000 unit Q7D ALANNA Administration Gabapentin 100 mg 11/11/20 21:00 11/28/20 08:07 Gabapentin 100 Mg Cap PO 100 mg BID ALANNA Administration Glucagon 1 mg 11/18/20 12:06 11/27/20 05:21 Glucagon 1 Mg/Ml Vial IM 1 mg PRN PRN Administration Hypoglycemia Hydralazine HCl 10 mg 11/17/20 13:46 11/25/20 04:45 Hydralazine 20 Mg/Ml Vial SLOW IVP 10 mg Q4H PRN Administration SBP > 150 Hydralazine HCl 100 mg 11/25/20 09:00 11/28/20 08:08 Hydralazine 25 Mg Tab PO Not Given TID [facility] Dextrose/Water 1,000 mls @ 30 mls/hr 11/24/20 10:00 11/28/20 09:37 D5w IV Not Given .Q24H [facility] Diphenhydramine HCl 25 mg/ 50.5 mls @ 150 mls/hr 11/26/20 10:00 11/28/20 09:29 Sodium Chloride IVPB 50.5 mls 0400,1000,1600,2200 ALANNA Administration Labetalol HCl 600 mg 11/25/20 09:00 11/28/20 08:08 Labetalol 100 Mg Tab PO Not Given BID [facility] Metoprolol Tartrate 5 mg 11/21/20 13:16 11/22/20 01:30 Metoprolol Tartrate 5 Mg/5 Ml Vial IVP 5 mg Q4H PRN Administration for HR > 90 or SBP>150 Morphine Sulfate 2 mg 11/25/20 07:53 11/28/20 11:56 Morphine 2 Mg/Ml Vial SLOW IVP 2 mg Q3H PRN Administration Severe Pain (7-10) Nifedipine 90 mg 11/17/20 21:00 11/28/20 08:08 Nifedipine Xl 90 Mg Tab PO Not Given BID [facility] Ondansetron HCl 4 mg 11/13/20 22:27 11/26/20 15:25 Ondansetron Pf 4 Mg/2 Ml Vial IVP 4 mg Q6H PRN Administration Nausea/Vomiting Pantoprazole Sodium 40 mg 11/25/20 09:00 11/28/20 08:07 Pantoprazole 40 Mg Tab PO 40 mg DAILY ALANNA Administration Saccharomyces Boulardii 250 mg 11/18/20 09:00 11/28/20 08:07 Saccharomyces Boulardii 250 Mg Cap PO 250 mg DAILY ALANNA Administration Sevelamer Carbonate 2,400 mg 11/17/20 17:00 11/28/20 11:57 Sevelamer Carbonate 800 Mg Tab PO 2,400 mg TID- ALANNA Administration Sodium Chloride 10 ml 11/27/20 09:00 11/28/20 08:08 Flush - Normal Saline 10 Ml Syringe IVF 10 ml Q12HR ALANNA Administration - Exam General Appearance: awake alert Eye: PERRL ENT: normocephalic atraumatic Neck: supple, symmetric Heart: RRR, murmur present Respiratory: rales (at the basis, poor inspiraory effort.) Gastrointestinal: tender to palpation, distended Extremities: no cyanosis, no clubbing, no edema Neurological: cranial nerve grossly intact Hosp A/P (1) ESRD (end stage renal disease) Code(s): N18.6 - END STAGE RENAL DISEASE Status: Acute (2) Diabetes Code(s): E11.9 - TYPE 2 DIABETES MELLITUS WITHOUT COMPLICATIONS Status: Acute (3) Hypothyroidism Code(s): E03.9 - HYPOTHYROIDISM, UNSPECIFIED Status: Acute (4) Abdominal pain Code(s): R10.9 - UNSPECIFIED ABDOMINAL PAIN Status: Acute Qualifiers: Abdominal location: generalized Qualified Code(s): R10.84 - Generalized abdominal pain - Plan he is post exp laparotomy with removal of large amount of ascites, he is currently receiving HD, he reports being hungry. will start him on clear liquids. will recheck his labs in am. plan for today 5 has a bit less pain compared to yesterday. continues to require D5w to prevent hypoglycemia. Palliative care and hospice are now on the case. will recheck labs in am.
[2020-11-28] MEDS: EPOETIN ALFA-EPBX (ESRD) 10,000 UNIT/ML VIAL SC SCH (14:53)
--- NOTE | 2020-11-28 15:05 | PRG ---
DATE OF SERVICE: 11/28/2020 Mr. Martínez yesterday underwent laparoscopy, evacuating 7 L of ascites fluid, it was sent for culture and evaluation and cytology, but most likely, these will be negative. The fluid appeared to be clear and noninfected. What was found was an inflammatory reaction in the pelvis. 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 There was inflammatory reaction with old hematoma and inflammation. The patient's pain is mostly in his lower abdomen. Today, the ascites has already partially reaccumulated. I have talked to Dr. Sofia regarding the fact that his ascites and abdominal pain are due to his transplant rejection and recommended the patient be seen by his Transplant Service. The patient previously seen by [place], but the patient states he is changing transplant programs to [place], but has not yet seen anybody in [place]. Yesterday, in the operating room, the patient was complaining about his left arm IV complaining that it was difficult and hurting and requested another IV. Intraoperatively, I placed a left femoral vein IV. Postoperatively, when I checked on the patient in the afternoon, he was having some bleeding around the catheter. I tried to talk to the patient into allowing me to place a pursestring suture, but he states he wanted the catheter out, insisted despite further discussion. Thus, the catheter was removed. Today, he is afebrile. Vital signs stable. Abdomen soft, although slightly distended from recurrent ascites. At this point, I will see him as needed. Please call if necessary. Job ID: [id number]
--- NOTE | 2020-11-28 16:56 | PDOC.PALCO ---
Palliative Care Consult - Consult Details Requesting Physician: Dr Hercules Reason for Consult: goals of care, advance directives assistance, assistance with communication prognosis/disease - Pertinent HPI 25 year old male who is well known to Palliative Care. 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 He was recently inpatient for treatment of MRSA bacteremia. Chronic abdominal pain, worse to left, that progressively became worse with no mitigating measures. Emergency room identified hypotension, with CT identifying pleural effusion and bilateral infiltrates as well as ascites. Admitted for further management. Recent diagnostic laproscopy, 7L of fluid send for cytology. No identified source for ascites other than inflammatory process to renal transplant/rejection. - Pertinent PMH Goodpasture Disease, Post renal transplant, renal failure requiring dialysis, anemia of chronic disease, Eczema, Bioprosthetic mitral valve, kidney transplant - Social History Alcohol Use: occasional Drug Use History: marijuana Living Situation: other (with grandmother and his five year old son) - Medications MAR Reviewed: Yes - Allergies Allergies/Adverse Reactions: Allergies Allergy/AdvReac Type Severity Reaction Status Date / Time loracarbef [From Lorabid] Allergy Severe Verified 09/20/20 22:12 - Subjective Labored respirations although denies. Mild abdominal pain. Weakness - ROS Constitutional: alert, weakness ENT: other (Denies nasal congestion, throat irritation) Respiratory: shortness of breath Cardiology: light headedness Gastrointestinal: abdominal pain, stomach discomfort Genitourinary: other Musculoskeletal: arthritis/arthralgias, other Neurological: other (denies confusion, tremors, syncope) Skin: dry, flakey, puritis Psychological: other (Denies anxiety, memory changes, depression at times) - Objective Vital Signs: Vital Signs - Most Recent Temp Pulse Resp BP Pulse Ox 98.3 F 110 H 15 119/83 99 11/28/20 16:13 11/28/20 16:13 11/28/20 16:13 11/28/20 16:13 11/28/20 16:13 Palliative Performance Scale: 60 - Physical Exam Constitutional: cachectic, ill appearing HEENT: EOMI, moist MMs, sclera anicteric Respiratory: no rhonchi, no wheezing, labored respirations Cardiovascular: no rub, no significant murmur, RRR Gastrointestinal: soft, non-tender, positive bowel sounds Genitourinary: continent Musculoskeletal: no cyanosis, no clubbing, pulses present Neurology: moves all 4 limbs, no focal deficits Skin: cap refill <2 seconds Deviation from normal: Dry Psychiatric: A&O x 3 - Problem List (1) ESRD (end stage renal disease) Code(s): N18.6 - END STAGE RENAL DISEASE Current Visit: Yes Status: Acute (2) Acute on chronic anemia Code(s): D64.9 - ANEMIA, UNSPECIFIED Current Visit: No Status: Acute (3) Palliative care encounter Code(s): Z51.5 - ENCOUNTER FOR PALLIATIVE CARE Current Visit: No Status: Acute (4) Abdominal pain Code(s): R10.9 - UNSPECIFIED ABDOMINAL PAIN Current Visit: No Status: Chronic Qualifiers: Abdominal location: generalized Qualified Code(s): R10.84 - Generalized abdominal pain (5) Ascites Code(s): R18.8 - OTHER ASCITES Current Visit: No Status: Chronic Qualifiers: Ascites type: other type (6) ESRD (end stage renal disease) on dialysis Code(s): N18.6 - END STAGE RENAL DISEASE; Z99.2 - DEPENDENCE ON RENAL DIALYSIS Current Visit: No Status: Chronic (7) H/O kidney transplant Current Visit: No Status: Chronic (8) H/O mitral valve replacement Code(s): Z95.2 - PRESENCE OF PROSTHETIC HEART VALVE Current Visit: No Status: Chronic - Plan/Recommendations Plan: Initially patient discussed hospice. However, when he realized he would have to forgo dialysis and not seek further evaluation and remain on transplant list in [place] he elected to continue with aggressive measures and care. Discussed disease processes and his fragile state. His goal is to see his 32th birthday, he states "I know I have a poor life expectancy" but I am hopeful. His goal is to also continue to be active in his sons life. son is named Estee and is 5. Discussed measures to manage exczema. Emotional support therapeutic listening. Secondary to goals identified, and patient desire to remain with aggressive measures palliative care will sign off at this time. Please re consult our team if we can further assist with revisiting Goal of care, disease progression, complex decision making, coping/family support. [55] minutes spent on this encounter with >50% of the time in counseling and coordination of care. Thank you for this very appropriate consult.
--- NOTE | 2020-11-28 17:20 | PRG ---
DATE OF SERVICE: 11/28/2020 SUBJECTIVE: The patient had a laparoscopy by Dr. Arciniega, and liver looked okay. No major inflammatory process noted in the peritoneum. He had some adhesions next to his old transplanted kidney, which has failed. The fluid samples were submitted for microbiology workup. The patient is not much changed in his subjective status right now. He is awake and alert. He is still having that pain mostly on the left side this time. No respiratory symptoms. He is a little bit tachycardic. OBJECTIVE: VITAL SIGNS: Afebrile, T-max was 99.4, BP 119/83, respiratory rate 15, and O2 saturation 99 on 3 L. GENERAL: Chronically ill appearing, but in no acute distress. Awake, alert, and oriented. LUNGS: Symmetric. Clear breath sounds. HEART: S1 and S2. Regular rate. ABDOMEN: Moderately distended. There is tenderness as previously described. He did not allow me to touch his abdomen. LABORATORY DATA: White cell count 4.0, hemoglobin 8.2, and platelets 93,000 with 60% neutrophils and 28% lymphocytes. The ascitic fluid evaluation is pending. ASSESSMENT AND DISCUSSION: 1. Goodpasture syndrome with end-stage renal disease, prior failed renal transplant, on hemodialysis with fistula. 2. 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 Thus far, there is no evidence of recrudescence of the endocarditis. He has had a negative Karius test. Now, he has this peritonitis or what appears to be peritonitis, but the laparoscopy was not particularly remarkable except for the presence of adhesions around the transplanted kidney and a gelatinous substance around it . Cultures are pending. As discussed by dr. Arciniega, aseptic peritonitis secondary to the allograft kidney rejection is a definite possibility and I found one case report describing similar situation. In that case either removal of the failed allograft by the surgeon that did it originally or resumption of anti- rejection therapy would be options to be considered. Preferably I would recommend removal of the allograft and for that to happen he would have to go back to [place]. . Job ID: [id number] [facility]ITAL[facility]
[2020-11-28] MEDS: Amitriptyline HCl 100 MG TAB PO SCH (21:42)
[2020-11-29] MEDS: Morphine 2 MG/ML VIAL SLOW IVP PRN ×6 (01:23→21:54)
[2020-11-29] MEDS: diphenhydrAMINE 25 MG in Sodium Chloride 0.9% 50 ML IVPB SCH ×4 (05:00→21:52)
[2020-11-29 10:39] LABS: Fungus Stain Final report (.)
[2020-11-29] MEDS: Sevelamer Carbonate 800 MG TAB PO SCH ×3 (10:42→18:17)
--- NOTE | 2020-11-29 10:45 | PRG ---
DATE OF SERVICE: 11/29/2020 SUBJECTIVE: Patient was seen and examined at bedside and overnight events noted. Patient denies any shortness of breath or chest pain or palpitation. No history of nausea or vomiting or diarrhea or fever or chills or cramps. OBJECTIVE: GENERAL: This is a well-built male, in no apparent distress. VITAL SIGNS: Temperature 99.1. Heart Rate 109. Respiratory rate 18. Blood pressure 117/80 HEENT: Atraumatic, normocephalic. Oral mucosa is moist. NECK: Supple. CARDIOVASCULAR: S1, S2 heard. Rate and rhythm regular. RESPIRATORY: Clear to auscultation. GASTROINTESTINAL: Abdomen is soft. MUSCULOSKELETAL: No tenderness. No edema. DERMATOLOGIC: No skin rash. NEUROLOGIC: Alert and awake and oriented x3. No focal neurologic deficits. Moving all the extremities. PSYCHIATRIC: Mood and affect normal. LABORATORY DATA: Not done today. ASSESSMENT AND PLAN: 1. End-stage renal disease. Continue on hemodialysis as tolerated. The patient is seen on dialysis. 2. Hypertension. 3. Anemia of chronic disease. 4. Edema. Continue on dialysis as tolerated on Friday, Friday, and Friday. Job ID: [id number]
[2020-11-29 11:18] LABS: #Eosinphils 0.4 thou/uL (0.0-0.7); #Lymphocytes 1.2 thou/uL (1.20-3.40); #Monocytes 0.3 thou/uL (0.11-0.59); #Neutrophils 2.6 thou/uL (1.40-6.50); %Basophils 0.8 % (0.0-1.0); %Eosinophils 9.7 % (0.0-10.0); %Lymphocytes 25.8 % (21.0-51.0); %Monocytes 6.5 % (0.0-10.0); %Neutrophils 57.3 % (42.0-75.0); Hemoglobin 8.1 g/dL (14.0-18.0); Mean Corpuscular HGB CONC 31.5 g/dL (32.0-36.0); Mean Corpuscular Hemoglobin 30.6 pg (27.0-31.0); Mean Corpuscular Volume 97.4 fL (78.0-98.0); Platelet Count 78 thou/uL (130-400); RBC Distribution Width 21.2 % (11.5-14.5); Red Blood Cell (RBC) Count 2.64 mill/uL (4.70-6.10); White Blood Cell (WBC) Count 4.5 thou/uL (4.8-10.8)
[2020-11-29 11:41] LABS: Anion Gap 13 mmol/L (10-20); BUN (Urea Nitrogen) 30 mg/dL (8.9-20.6); Calc. Creatinine Clearance 21 mL/min (70-130); Calcium 7.6 mg/dL (7.8-10.44); Carbon Dioxide 29 mmol/L (22-29); Chloride 98 mmol/L (98-107); Glucose 114 mg/dL (70-105); Potassium 3.9 mmol/L (3.5-5.1); Sodium 136 mmol/L (136-145)
[2020-11-29 12:09] LABS: Elliptocytes SLIGHT = 2-5 cells (100X) (0-1/hpf); MDiff Complete? YES; Ovalocytes SLIGHT = 2-5 cells (100X) (0-1/hpf); Platelet Morphology Comment Appears Decreased; Polychromasia SLIGHT = 2-3 cells (100X) (0-2/hpf)
[2020-11-29] MEDS: NIFEdipine XL 90 MG TAB PO SCH ×2 (15:11→20:14)
[2020-11-29] MEDS: Saccharomyces boulardii 250 MG CAP PO SCH (15:11)
[2020-11-29] MEDS: Labetalol 100 MG TAB PO SCH ×2 (15:11→20:13)
[2020-11-29] MEDS: Dextrose 5% in Water 1,000 ML IV SCH (15:11)
[2020-11-29] MEDS: Gabapentin 100 MG CAP PO SCH ×2 (15:12→20:06)
[2020-11-29] MEDS: hydrALAZINE 25 MG TAB PO SCH ×3 (15:12→20:13)
[2020-11-29] MEDS: DULoxetine 60 MG CAP PO SCH (15:12)
[2020-11-29] MEDS: cloNIDine 0.1 MG TAB PO SCH ×2 (15:13→20:13)
--- NOTE | 2020-11-29 16:50 | PDOC.HOSPP ---
- Subjective Encounter Date: 11/29/20 Subjective: continues to be in pain - Objective Vital Signs & Weight: Vital Signs (12 hours) Temp Pulse Resp BP Pulse Ox 11/29/20 15:40 98.4 F 105 H 16 107/72 100 11/29/20 15:11 100 11/29/20 11:46 98.1 F 100 17 114/75 100 11/29/20 07:43 99.1 F 109 H 17 117/80 100 11/29/20 05:18 98.5 F 111 H 18 112/78 100 Weight Admit Weight 185 lb 3.013 oz Weight 183 lb 9.6 oz Most Recent Monitor Data Heart Rate from ECG 90 NIBP 116/87 NIBP BP-Mean 96 Respiration from ECG 28 SpO2 98 I&O: 11/28/20 11/29/20 11/30/20 06:59 06:59 06:59 Intake Total 1410 3390 Output Total 0 Balance 1410 3390 Result Diagrams: 11/29/20 11:00 11/29/20 10:35 Additional Labs: Accuchecks 11/29/20 11/29/20 11/29/20 16:30 10:58 05:36 POC Glucose 79 113 H 81 11/28/20 11/28/20 20:29 16:57 POC Glucose 84 137 H Hospitalist ROS - Medication Medications: Active Medications Generic Name Dose Route Start Last Admin Trade Name Freq PRN Reason Stop Dose Admin Al Hydroxide/Mg Hydroxide 30 ml 11/14/20 16:32 11/17/20 04:40 Mag-Al 1200 Mg/1200 Mg/30 Ml Udcup PO 30 ml Q6H PRN Administration Heartburn or Indigestion Amitriptyline HCl 100 mg 11/17/20 21:00 11/28/20 21:42 Amitriptyline Hcl 100 Mg Tab PO 100 mg QPM ALANNA Administration Clonidine 0.1 mg 11/19/20 09:00 11/29/20 15:13 Clonidine 0.1 Mg Tab PO Not Given TID ALANNA Dextrose/Water 25 gm 11/18/20 12:06 11/27/20 05:46 Dextrose 50% Abboject 50 Ml Syringe SLOW IVP 25 gm PRN PRN Administration Hypoglycemia Duloxetine HCl 60 mg 11/18/20 09:00 11/29/20 15:12 Duloxetine 60 Mg Cap PO Not Given DAILY ALANNA Epoetin John-epbx 20,000 unit 11/14/20 12:00 11/28/20 14:53 Epoetin John-Epbx (Esrd) 10,000 Unit/Ml Vial SC 20,000 unit Q7D ALANNA Administration Gabapentin 100 mg 11/11/20 21:00 11/29/20 15:12 Gabapentin 100 Mg Cap PO Not Given BID ALANNA Glucagon 1 mg 11/18/20 12:06 11/27/20 05:21 Glucagon 1 Mg/Ml Vial IM 1 mg PRN PRN Administration Hypoglycemia Hydralazine HCl 10 mg 11/17/20 13:46 11/25/20 04:45 Hydralazine 20 Mg/Ml Vial SLOW IVP 10 mg Q4H PRN Administration SBP > 150 Hydralazine HCl 100 mg 11/25/20 09:00 11/29/20 15:13 Hydralazine 25 Mg Tab PO Not Given TID [facility] Dextrose/Water 1,000 mls @ 30 mls/hr 11/24/20 10:00 11/29/20 15:11 D5w IV Not Given .Q24H [facility] Diphenhydramine HCl 25 mg/ 50.5 mls @ 150 mls/hr 11/26/20 10:00 11/29/20 15:10 Sodium Chloride IVPB Not Given 0400,1000,1600,2200 [facility] Labetalol HCl 600 mg 11/25/20 09:00 11/29/20 15:11 Labetalol 100 Mg Tab PO Not Given BID [facility] Metoprolol Tartrate 5 mg 11/21/20 13:16 11/22/20 01:30 Metoprolol Tartrate 5 Mg/5 Ml Vial IVP 5 mg Q4H PRN Administration for HR > 90 or SBP>150 Morphine Sulfate 2 mg 11/25/20 07:53 11/29/20 11:46 Morphine 2 Mg/Ml Vial SLOW IVP 2 mg Q3H PRN Administration Severe Pain (7-10) Nifedipine 90 mg 11/17/20 21:00 11/29/20 15:11 Nifedipine Xl 90 Mg Tab PO Not Given BID ALANNA Ondansetron HCl 4 mg 11/13/20 22:27 11/26/20 15:25 Ondansetron Pf 4 Mg/2 Ml Vial IVP 4 mg Q6H PRN Administration Nausea/Vomiting Pantoprazole Sodium 40 mg 11/25/20 09:00 11/29/20 15:11 Pantoprazole 40 Mg Tab PO Not Given DAILY ALANNA Saccharomyces Boulardii 250 mg 11/18/20 09:00 11/29/20 15:11 Saccharomyces Boulardii 250 Mg Cap PO Not Given DAILY ALANNA Sevelamer Carbonate 2,400 mg 11/17/20 17:00 11/29/20 15:10 Sevelamer Carbonate 800 Mg Tab PO Not Given TID-WM ALANNA Sodium Chloride 10 ml 11/27/20 09:00 11/29/20 15:18 Flush - Normal Saline 10 Ml Syringe IVF 10 ml Q12HR ALANNA Administration - Exam General Appearance: awake alert Eye: PERRL ENT: normocephalic atraumatic Neck: supple, symmetric Heart: RRR Respiratory: CTAB, no wheezes Gastrointestinal: tender to palpation Extremities: no cyanosis Skin: normal turgor Hosp A/P (1) ESRD (end stage renal disease) Code(s): N18.6 - END STAGE RENAL DISEASE Status: Acute (2) Diabetes Code(s): E11.9 - TYPE 2 DIABETES MELLITUS WITHOUT COMPLICATIONS Status: Acute (3) Hypothyroidism Code(s): E03.9 - HYPOTHYROIDISM, UNSPECIFIED Status: Acute (4) Abdominal pain Code(s): R10.9 - UNSPECIFIED ABDOMINAL PAIN Status: Acute Qualifiers: Abdominal location: generalized Qualified Code(s): R10.84 - Generalized abdominal pain - Plan he is post exp laparotomy with removal of large amount of ascites, he is currently receiving HD, he reports being hungry. will start him on clear liquids. will recheck his labs in am. plan for today 11/28 has a bit less pain compared to yesterday. continues to require D5w to prevent hypoglycemia. Palliative care and hospice are now on the case. will recheck labs in am. plan for today 11/29 continues to be in pain. he does not want hospice , he is interested in being on the kidney transplant list in [place].
[2020-11-29] MEDS: Amitriptyline HCl 100 MG TAB PO SCH (20:06)
[2020-11-29] MEDS ORDERED: Rifampin 300 MG CAP PO SCH (21:00)
[2020-11-30] MEDS: Morphine 2 MG/ML VIAL SLOW IVP PRN ×6 (01:32→22:14)
[2020-11-30] MEDS: diphenhydrAMINE 25 MG in Sodium Chloride 0.9% 50 ML IVPB SCH ×5 (05:28→21:48)
[2020-11-30] MEDS: Dextrose 5% in Water 1,000 ML IV SCH (05:28)
[2020-11-30] MEDS: Sevelamer Carbonate 800 MG TAB PO SCH ×3 (08:27→16:38)
[2020-11-30] MEDS: DULoxetine 60 MG CAP PO SCH (08:27)
[2020-11-30] MEDS: Gabapentin 100 MG CAP PO SCH ×2 (08:28→21:36)
[2020-11-30] MEDS: cloNIDine 0.1 MG TAB PO SCH ×3 (08:29→21:41)
[2020-11-30] MEDS: Labetalol 100 MG TAB PO SCH ×2 (08:30→21:42)
[2020-11-30] MEDS: hydrALAZINE 25 MG TAB PO SCH ×3 (08:30→21:41)
[2020-11-30] MEDS: NIFEdipine XL 90 MG TAB PO SCH ×2 (08:30→21:37)
[2020-11-30] MEDS: Saccharomyces boulardii 250 MG CAP PO SCH (08:30)
[2020-11-30 08:31] LABS: Hemoglobin 8.6 g/dL (14.0-18.0); Mean Corpuscular HGB CONC 30.6 g/dL (32.0-36.0); Mean Corpuscular Hemoglobin 30.2 pg (27.0-31.0); Mean Corpuscular Volume 98.9 fL (78.0-98.0); Mean Platelet Volume 10.2 fL (7.4-10.4); Platelet Count 81 thou/uL (130-400); RBC Distribution Width 21.2 % (11.5-14.5); Red Blood Cell (RBC) Count 2.85 mill/uL (4.70-6.10); White Blood Cell (WBC) Count 4.8 thou/uL (4.8-10.8)
[2020-11-30 08:33] LABS: #Eosinphils 0.5 thou/uL (0.0-0.7); #Lymphocytes 1.3 thou/uL (1.20-3.40); #Monocytes 0.4 thou/uL (0.11-0.59); #Neutrophils 2.5 thou/uL (1.40-6.50); %Basophils 0.8 % (0.0-1.0); %Lymphocytes 26.6 % (21.0-51.0); %Monocytes 8.7 % (0.0-10.0); %Neutrophils 52.9 % (42.0-75.0)
[2020-11-30 08:41] LABS: Anion Gap 19 mmol/L (10-20); BUN (Urea Nitrogen) 20 mg/dL (8.9-20.6); Calc. Creatinine Clearance 26 mL/min (70-130); Carbon Dioxide 22 mmol/L (22-29); Chloride 98 mmol/L (98-107); Glucose 105 mg/dL (70-105); Potassium 4.2 mmol/L (3.5-5.1); Sodium 135 mmol/L (136-145)
[2020-11-30 10:19] LABS: MDiff Complete? YES; Platelet Morphology Comment Appears Decreased; Polychromasia SLIGHT = 2-3 cells (100X) (0-2/hpf); Schistocytes SLIGHT = 2-5 cells (100X) (0-1/hpf)
--- NOTE | 2020-11-30 11:12 | PRG ---
DATE OF SERVICE: 11/30/2020 SUBJECTIVE: Patient was seen and examined at bedside and overnight events noted. Patient denies any shortness of breath or chest pain or palpitation. No history of nausea or vomiting or diarrhea or fever or chills or cramps. OBJECTIVE: GENERAL: This is a well-built male, in no apparent distress. VITAL SIGNS: Temperature 98.5. Heart rate 112. Respiratory rate 18. Blood pressure 12/87. HEENT: Atraumatic, normocephalic. Oral mucosa is moist. NECK: Supple. CARDIOVASCULAR: S1, S2 heard. Rate and rhythm regular. RESPIRATORY: Clear to auscultation. GASTROINTESTINAL: Abdomen is soft. MUSCULOSKELETAL: No tenderness. No edema. DERMATOLOGIC: No skin rash. NEUROLOGIC: Alert and awake and oriented x3. No focal neurologic deficits. Moving all the Extremities. Psychiatric: Mood and affect normal. LABORATORY DATA: Potassium is 4.2, BUN is 20, creatinine is 5.23. ASSESSMENT AND PLAN: 1. End-stage renal disease, continue on hemodialysis as tolerated. 2. Edema. 3. History of hypertension. 4. Anemia of chronic disease. We will continue on dialysis as tolerated. Job ID: [id number]
[2020-11-30 14:15] VITALS: BMI 24.3
--- NOTE | 2020-11-30 16:21 | PDOC.HOSPP ---
- Subjective Encounter Date: 11/30/20 Subjective: continues to have pain but feels a bit better. - Objective Vital Signs & Weight: Vital Signs (12 hours) Temp Pulse Resp BP BP Pulse Ox 11/30/20 14:58 107 H 16 114/81 97 11/30/20 11:44 111 H 16 120/85 96 11/30/20 07:57 98.5 F 112 H 16 122/87 97 11/30/20 04:30 98.9 F 112 H 18 122/76 94 L Weight Admit Weight 185 lb 3.013 oz Weight 184 lb Most Recent Monitor Data Heart Rate from ECG 90 NIBP 116/87 NIBP BP-Mean 96 Respiration from ECG 28 SpO2 98 I&O: 11/29/20 11/30/20 12/01/20 06:59 06:59 06:59 Intake Total 3390 1930 Balance 3390 1930 Result Diagrams: 11/30/20 08:02 11/30/20 08:02 Additional Labs: Accuchecks 11/30/20 11/29/20 11/29/20 10:47 20:04 16:30 POC Glucose 112 H 87 79 Hospitalist ROS - Medication Medications: Active Medications Generic Name Dose Route Start Last Admin Trade Name Freq PRN Reason Stop Dose Admin Al Hydroxide/Mg Hydroxide 30 ml 11/14/20 16:32 11/17/20 04:40 Mag-Al 1200 Mg/1200 Mg/30 Ml Udcup PO 30 ml Q6H PRN Administration Heartburn or Indigestion Amitriptyline HCl 100 mg 11/17/20 21:00 11/29/20 20:06 Amitriptyline Hcl 100 Mg Tab PO 100 mg QPM ALANNA Administration Clonidine 0.1 mg 11/19/20 09:00 11/30/20 14:06 Clonidine 0.1 Mg Tab PO Not Given TID ALANNA Dextrose/Water 25 gm 11/18/20 12:06 11/27/20 05:46 Dextrose 50% Abboject 50 Ml Syringe SLOW IVP 25 gm PRN PRN Administration Hypoglycemia Duloxetine HCl 60 mg 11/18/20 09:00 11/30/20 08:27 Duloxetine 60 Mg Cap PO 60 mg DAILY ALANNA Administration Epoetin John-epbx 20,000 unit 11/14/20 12:00 11/28/20 14:53 Epoetin John-Epbx (Esrd) 10,000 Unit/Ml Vial SC 20,000 unit Q7D ALANNA Administration Gabapentin 100 mg 11/11/20 21:00 11/30/20 08:28 Gabapentin 100 Mg Cap PO 100 mg BID ALANNA Administration Glucagon 1 mg 11/18/20 12:06 11/27/20 05:21 Glucagon 1 Mg/Ml Vial IM 1 mg PRN PRN Administration Hypoglycemia Hydralazine HCl 10 mg 11/17/20 13:46 11/25/20 04:45 Hydralazine 20 Mg/Ml Vial SLOW IVP 10 mg Q4H PRN Administration SBP > 150 Hydralazine HCl 100 mg 11/25/20 09:00 11/30/20 14:06 Hydralazine 25 Mg Tab PO Not Given TID [facility] Dextrose/Water 1,000 mls @ 30 mls/hr 11/24/20 10:00 11/30/20 05:28 D5w IV 1,000 mls .Q24H ALANNA Administration Diphenhydramine HCl 25 mg/ 50.5 mls @ 150 mls/hr 11/26/20 10:00 11/30/20 15:57 Sodium Chloride IVPB Not Given 0400,1000,1600,2200 [facility] Labetalol HCl 600 mg 11/25/20 09:00 11/30/20 08:30 Labetalol 100 Mg Tab PO Not Given BID [facility] Metoprolol Tartrate 5 mg 11/21/20 13:16 11/22/20 01:30 Metoprolol Tartrate 5 Mg/5 Ml Vial IVP 5 mg Q4H PRN Administration for HR > 90 or SBP>150 Morphine Sulfate 2 mg 11/25/20 07:53 11/30/20 14:52 Morphine 2 Mg/Ml Vial SLOW IVP 2 mg Q3H PRN Administration Severe Pain (7-10) Nifedipine 90 mg 11/17/20 21:00 11/30/20 08:30 Nifedipine Xl 90 Mg Tab PO Not Given BID [facility] Ondansetron HCl 4 mg 11/13/20 22:27 11/26/20 15:25 Ondansetron Pf 4 Mg/2 Ml Vial IVP 4 mg Q6H PRN Administration Nausea/Vomiting Pantoprazole Sodium 40 mg 11/25/20 09:00 11/30/20 08:26 Pantoprazole 40 Mg Tab PO 40 mg DAILY ALANNA Administration Saccharomyces Boulardii 250 mg 11/18/20 09:00 11/30/20 08:30 Saccharomyces Boulardii 250 Mg Cap PO Not Given DAILY ALANNA Sevelamer Carbonate 2,400 mg 11/17/20 17:00 11/30/20 11:46 Sevelamer Carbonate 800 Mg Tab PO Not Given TID-WM ALANNA Sodium Chloride 10 ml 11/27/20 09:00 11/30/20 08:30 Flush - Normal Saline 10 Ml Syringe IVF Not Given Q12HR ALANNA - Exam Eye: PERRL ENT: normocephalic atraumatic Neck: supple Heart: RRR Respiratory: CTAB, no wheezes, no rales Gastrointestinal: tender to palpation, distended Extremities: no cyanosis Skin: normal turgor Neurological: cranial nerve grossly intact Musculoskeletal: normal tone Psychiatric: normal affect Hosp A/P (1) ESRD (end stage renal disease) Code(s): N18.6 - END STAGE RENAL DISEASE Status: Acute (2) Diabetes Code(s): E11.9 - TYPE 2 DIABETES MELLITUS WITHOUT COMPLICATIONS Status: Acute (3) Hypothyroidism Code(s): E03.9 - HYPOTHYROIDISM, UNSPECIFIED Status: Acute (4) Abdominal pain Code(s): R10.9 - UNSPECIFIED ABDOMINAL PAIN Status: Acute Qualifiers: Abdominal location: generalized Qualified Code(s): R10.84 - Generalized abdominal pain - Plan he is post exp laparotomy with removal of large amount of ascites, he is currently receiving HD, he reports being hungry. will start him on clear liquids. will recheck his labs in am. plan for today 11/28 has a bit less pain compared to yesterday. continues to require D5w to prevent hypoglycemia. Palliative care and hospice are now on the case. will recheck labs in am. plan for today 11/29 continues to be in pain. he does not want hospice , he is interested in being on the kidney transplant list in [place]. plan for today 11/30 He continues to have pain, but slowly improving. I discussed with him that the workup for his pain is complete and the importance of continuing the process of seeking a new kidney transplant as an outpatient.
[2020-11-30] MEDS: Loperamide HCl 2 MG CAP PO PRN ×2 (19:05→21:48)
[2020-11-30] MEDS: Amitriptyline HCl 100 MG TAB PO SCH (21:39)
[2020-12-01] MEDS: Morphine 2 MG/ML VIAL SLOW IVP PRN ×4 (02:30→14:56)
[2020-12-01] MEDS: diphenhydrAMINE 25 MG in Sodium Chloride 0.9% 50 ML IVPB SCH ×2 (04:55→15:09)
[2020-12-01] MEDS: Loperamide HCl 2 MG CAP PO PRN (05:37)
[2020-12-01] MEDS: Sevelamer Carbonate 800 MG TAB PO SCH ×2 (09:03→15:09)
[2020-12-01] MEDS: Gabapentin 100 MG CAP PO SCH (09:03)
[2020-12-01] MEDS: hydrALAZINE 25 MG TAB PO SCH ×2 (09:04→15:09)
[2020-12-01] MEDS: DULoxetine 60 MG CAP PO SCH (09:04)
[2020-12-01] MEDS: Saccharomyces boulardii 250 MG CAP PO SCH (09:04)
[2020-12-01] MEDS: Labetalol 100 MG TAB PO SCH (09:04)
[2020-12-01] MEDS: cloNIDine 0.1 MG TAB PO SCH ×2 (09:04→15:09)
[2020-12-01] MEDS: NIFEdipine XL 90 MG TAB PO SCH (09:05)
--- NOTE | 2020-12-01 10:53 | PRG ---
DATE OF SERVICE: 12/01/2020 SUBJECTIVE: Patient was seen and examined at bedside and overnight events noted. Patient denies any shortness of breath or chest pain or palpitation. No history of nausea or vomiting or diarrhea or fever or chills or cramps. OBJECTIVE: General: This is a well-built male, seen on dialysis. Vital Signs: Temperature 99.7. Heart Rate 104. Respiratory rate 18. Blood pressure 104/72. HEENT: Atraumatic, normocephalic. Oral mucosa is moist. Neck: Supple. Cardiovascular: S1, S2 heard. Rate and rhythm regular. Respiratory: Clear to auscultation. Gastrointestinal: Abdomen is soft. Musculoskeletal: No tenderness. No edema. Dermatologic: No skin rash. Neurologic: Alert and awake and oriented x3. No focal neurologic deficits. Moving all the extremities. Psychiatric: Mood and affect normal. LABORATORY DATA: Not done today. ASSESSMENT AND PLAN: 1. End-stage renal disease, continue on hemodialysis as tolerated. 2. Edema. 3. Hypertension. 4. Anemia of chronic disease. 5. History of renal transplant. 6. Plan to continue dialysis as tolerated Friday, Friday, and Friday. The patient is seen during dialysis. Job ID: [id number]
[2020-12-01] MEDS: Dextrose 5% in Water 1,000 ML IV SCH (15:08)
[2020-12-01 15:12] VITALS: BP 126/80; TEMP 99.5
--- NOTE | 2020-12-01 18:59 | DIS ---
DATE OF ADMISSION: 11/11/2020 DATE OF DISCHARGE: 12/01/2020 DISCHARGE DISPOSITION: To home. PRIMARY DISCHARGE DIAGNOSES: 1. Abdominal pain, status post diagnostic laparoscopy with evacuation of 7 L of ascitic fluid. This was done on 11/27/[address] Arciniega. 2. End-stage renal disease, on hemodialysis. 3. Chronic anemia due to renal disease. 4. 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 5. History of renal transplant. 6. Depression. 7. Hypertension. PROCEDURES DONE DURING HOSPITALIZATION: Abdominal and pelvic CAT scan done on the day of admission with contrast showed findings of large volume ascites with a single loop of small bowel within the left upper quadrant, which is mildly dilated and filled, increase in size of right pleural effusion, now moderate in size. Echo done on 11/12/2020 showed ejection fraction of 50% to 55%. There is [id number] concentric LVH. Left atrium was severely dilated. Prosthetic valve was present in the mitral position. The patient has had paracentesis done on 11/12/2020 with removal of 4 L of fluid. He had a diagnostic laparoscopy with evacuation of 7 L of ascitic fluid, which was submitted for cytology, fungal, TB, yeast along with cultures for bacteria. Ascitic fluid culture has not revealed any organism or growth in 4 days. No acid-fast bacilli were seen on the ascitic fluid. Blood cultures x2 on admission were negative. Discharge H and H 8.6 and 28, platelet count is 81, white count of 4.8, MCV 98 with 52% neutrophils. Albumin 2.6. COVID-19 PCR was not detected on 11/10/2020. Influenza A and B PCRs were negative. No fungus was detected. Acetic body fluid total protein was 3.6, 175 wbc's seen, 3071 rbc's, 6% neutrophils, and 27% lymphocytes seen. DISCHARGE MEDICATIONS: 1. Gabapentin 100 mg twice daily. 2. Nexium 40 mg daily. 3. Labetalol 600 mg twice daily. 4. Sevelamer 2400 mg p.o. 3 times daily. 5. Zofran p.r.n. 6. Amitriptyline 100 mg p.o. q.p.m. 7. Benadryl 25 mg q.6 hourly p.r.n. 8. Clonidine 0.3 mg p.o. 3 times daily. 9. Duloxetine 60 mg p.o. daily. 10. Florastor 250 mg daily. 11. Hydralazine 100 mg p.o. 3 times daily. 12. Procardia XL 90 mg twice daily. 13. Ultram p.r.n. for pain. ALLERGIES: TO LORACARBEF. DISCHARGE PLAN: The patient is advised to follow up with his transplant surgeon in [place] at the earliest. He needs to follow up with Dr. Nidhi Hilliard, his primary care physician, in 1 week; Dr. Arciniega as advised. BRIEF COURSE DURING HOSPITALIZATION: The patient initially came in on November 11 with complaints of abdominal pain. He was found to have had ascites. The patient has history of chronic abdominal pain with history of transplant kidney and end-stage renal disease, currently on hemodialysis. He has also had prior history of MRSA bacteremia, which was recurrent. On arrival, the patient had very low blood pressures with initial suspicion for septic shock and was placed in ICU on pressors. He has had a complete septic workup done during his stay here. Blood cultures were negative. The patient has had paracentesis done with removal of 4 L of fluid. Mr. Martínez continued to complain of abdominal pain. In view of this, surgical consultation with Dr. Arciniega was requested. He has had diagnostic laparoscopy done with removal of seven more liters of ascitic fluid. Per Dr. Arciinega, there is possible suspicion for inflammatory reaction inside the abdomen from his renal transplant and chronic inflammation leading up to ascites and abdominal pain. These findings were relayed to the patient and his grandma to have outpatient followup with his transplant surgeon in [place] a the earliest. He remained hemodynamically stable and will be shortly discharged home. Prior to discharge, he is ambulating and tolerating oral solid diet. Post diagnostic laparoscopy procedure, the patient has had bowel movements. He will be discharged home today after his regular session of hemodialysis. I have given complete updates to him and his grandma with whom he lives. For complete details of all the procedures and lab workup during his prolonged stay here, please obtain copies of his medical records. Please note I have seen and examined the patient on the day of discharge. Job ID: [id number]
== END 2020-12-01 16:02 | disposition home or self-care (01) | DRG 853 ==
LOC: ERS 22:17 → ERHOLD 11-11 03:17 → CCU 11-11 08:35 → 2NO 11-11 23:50 → 3SE 11-23 16:32 → 2NO 11-24 09:41
PROVIDERS: ADMIT Internal Medicine; ATTEND Internal Medicine
PROC: 3E033XZ Introduction of Vasopressor into Peripheral Vein, Percutaneous Approach (ICD-10-PCS; 2020-11-11)
PROC: 06HY33Z Insertion of Infusion Device into Lower Vein, Percutaneous Approach (ICD-10-PCS; 2020-11-11)
PROC: 0W9G3ZZ Drainage of Peritoneal Cavity, Percutaneous Approach (ICD-10-PCS; 2020-11-12)
PROC: 5A1D70Z Performance of Urinary Filtration, Intermittent, Less than 6 Hours Per Day (ICD-10-PCS; 2020-11-13)
PROC: 30233N1 Transfusion of Nonautologous Red Blood Cells into Peripheral Vein, Percutaneous Approach (ICD-10-PCS; 2020-11-13)
PROC: 0W9G4ZZ Drainage of Peritoneal Cavity, Percutaneous Endoscopic Approach (ICD-10-PCS; principal; 2020-11-27)
DX: A41.9 Sepsis, unspecified organism (principal); N18.6 End stage renal disease; R65.21 Severe sepsis with septic shock; J18.9 Pneumonia, unspecified organism; K65.9 Peritonitis, unspecified; R18.8 Other ascites; Z20.822 Contact with and (suspected) exposure to COVID-19; I42.9 Cardiomyopathy, unspecified; M31.0 Hypersensitivity angiitis; T86.12 Kidney transplant failure; K76.6 Portal hypertension; N25.81 Secondary hyperparathyroidism of renal origin; E44.0 Moderate protein-calorie malnutrition; D63.1 Anemia in chronic kidney disease; F32.9 Major depressive disorder, single episode, unspecified; F41.9 Anxiety disorder, unspecified; Y83.0 Surgical operation with transplant of whole organ as the cause of abnormal reaction of the patient, or of later complication, without mention of misadventure at the time of the procedure; E87.70 Fluid overload, unspecified; I10 Essential (primary) hypertension; E87.5 Hyperkalemia; K21.9 Gastro-esophageal reflux disease without esophagitis; E03.9 Hypothyroidism, unspecified; G89.4 Chronic pain syndrome; E16.2 Hypoglycemia, unspecified; Z99.2 Dependence on renal dialysis; Z86.14 Personal history of Methicillin resistant Staphylococcus aureus infection; Z91.19 Patient's noncompliance with other medical treatment and regimen; Z79.01 Long term (current) use of anticoagulants; Z95.2 Presence of prosthetic heart valve; Z82.49 Family history of ischemic heart disease and other diseases of the circulatory system; Z88.8 Allergy status to other drugs, medicaments and biological substances; Z68.25 Body mass index [BMI] 25.0-25.9, adult; Z79.899 Other long term (current) drug therapy
CPT/HCPCS: 0240U; 36415; 36416; 36430; 36556; 49082; 49083; 71045; 71250; 74018; 74177; 80048; 80053; 80202; 82042; 82150; 82533; 82550; 82553; 83605; 83615; 83690; 83735; 83880; 84100; 84145; 84157; 84443; 84484; 85014; 85018; 85025; 85060; 85610; 85730; 86140; 86850; 86900; 86901; 87040; 87070; 87071; 87102; 87116; 87205; 87206; 89051; 90935; 93005; 93306; 96365; 96366; 96368; 99292; C1751; G0257; J0171; J0360; J0692; J0696; J1100; J1200; J1610; J1956; J2185; J2250; J2270; J2405; J2543; J2704; J2765; J3010; J3370; J3490; J7050; J7070; P9016; P9047; Q0163; Q5105; Q9967; S0020; U0002

== ENCOUNTER 2020-12-24 17:43 | Inpatient (IN) | payer OTHER ==
[~2020-12-24 17:43] MED LIST changes: +Calcium Chloride 1 GM/10 ML Abboject SYRINGE ONE; +Dextrose 50% Abboject 50 ML SYRINGE ONE; +EPINEPHrine 1 MG/10 ML Abboject SYRINGE ONE; -Heparin 1,000 UNITS/ML VIAL ONE; +Naloxone HCl 0.4 mg/ml Vial ONE; +Sodium Bicarb 50 MEQ/50 ML Abboject 8.4% SYRINGE ONE
[2020-12-24] MEDS ORDERED: Dextrose 50% Abboject 50 ML SYRINGE ONE ×3 (17:49→23:47)
[2020-12-24] MEDS ORDERED: Insulin Regular 300 UNITS/3 ML VIAL ONE (17:49)
[2020-12-24] MEDS ORDERED: Naloxone HCl 2 mg/2 ml Syringe ONE (17:55)
[2020-12-24] MEDS ORDERED: Norepinephrine 8 MG/0.9% NS 250 ML ONE (18:11)
[2020-12-24 18:16] LABS: Actual Bicarbonate (HCO3a) 13.3 mEq/L (22-28); Analyzer IN Cardio ER; Base Excess (BEa) -15.8 mEq/L (-2.0 to +3.0); CO2 Tension 45.7 mmHg (35.0-45.0); Calcium, Ionized (arterial) 1.29 mmol/L (1.12-1.30); Carboxyhemoglobin (COHb) 1.1 gm% (0.0-3.0); Hemoglobin (Hb) 9.4 g/dL (14.0-18.0); O2 Tension (PaO2), arterial 121.4 mmHg (80.0-100.0); Potassium - ABG Lab 6.26 mmol/L (3.70-5.30)
[2020-12-24 18:17] LABS: pH, Arterial 7.08 (7.35-7.45)
[2020-12-24 18:18] LABS: Puncture Site RFA
[2020-12-24 18:22] LABS: ALV-art Gradient 177.975 mmHg (0-20)
[2020-12-24] MEDS ORDERED: Sodium Bicarbonate 150 MEQ in Dextrose 5% in Water 1,000 ML IV SCH (18:45)
[2020-12-24 19:05] LABS: Hemoglobin 8.5 g/dL (14.0-18.0); Mean Corpuscular HGB CONC 31.6 g/dL (32.0-36.0); Mean Corpuscular Hemoglobin 33.9 pg (27.0-31.0); Platelet Count 104 thou/uL (130-400); RBC Distribution Width 22.3 % (11.5-14.5); Red Blood Cell (RBC) Count 2.52 mill/uL (4.70-6.10); White Blood Cell (WBC) Count 9.7 thou/uL (4.8-10.8)
[2020-12-24 19:11] LABS: Prothrombin Time 23.4 sec (12.0-14.7)
[2020-12-24 19:12] LABS: PTT 53.8 sec (22.9-36.1)
[2020-12-24 19:24] LABS: ALT (SGPT) 41 U/L (8-55); AST (SGOT) 135 U/L (5-34); Albumin 2.3 g/dL (3.5-5.0); Alkaline Phosphatase 141 U/L (40-110); Anion Gap 30 mmol/L (10-20); BUN (Urea Nitrogen) 99 mg/dL (8.9-20.6); Bilirubin, Total 2.3 mg/dL (0.2-1.2); Calc. Creatinine Clearance 0 mL/min (70-130); Calcium 9.1 mg/dL (7.8-10.44); Carbon Dioxide 17 mmol/L (22-29); Chloride 97 mmol/L (98-107); Globulin 3.3 g/dL (2.4-3.5); Glucose 99 mg/dL (70-105); Lipase 202 U/L (8-78); Potassium 5.6 mmol/L (3.5-5.1); Protein, Total 5.6 g/dL (6.0-8.3); Sodium 138 mmol/L (136-145)
[2020-12-24 19:27] LABS: Anisocytosis SLIGHT = 6-15 cells (100X) (0-5/hpf); Band 28 % (5-11); Eosinophils 1 % (0-10); Hypochromia SLIGHT = 6-15 cells (100X) (0-5/hpf); Lymphocytes 9 % (21-51); MDiff Complete? YES; Macrocytosis SLIGHT = 6-15 cells (100X) (0-5/hpf); Monocytes 1 % (0-10); Neutrophil 54 % (42-75); Ovalocytes SLIGHT = 2-5 cells (100X) (0-1/hpf); Platelet Morphology Comment Appears Decreased; Polychromasia SLIGHT = 2-3 cells (100X) (0-2/hpf); Reactive Lymphocytes 7 % (0-10); Schistocytes SLIGHT = 2-5 cells (100X) (0-1/hpf); Target Cells SLIGHT = 2-5 cells (100X) (0-1/hpf); Tear Drops SLIGHT = 2-5 cells (100X) (0-1/hpf)
[2020-12-24 19:46] LABS: CKMB 2.7 ng/mL (0-6.6)
[2020-12-24] MEDS ORDERED: Norepinephrine 8 MG/0.9% NS 250 ML IVPB PRN (19:55)
[2020-12-24 20:03] LABS: SARS-CoV-2 NAA Rapid Test Not Detected (NotDetected)
[2020-12-24 21:29] LABS: Troponin I 0.191 ng/mL (< 0.028)
[2020-12-24] MEDS ORDERED: Vancomycin HCl 500 MG in Sodium Chloride 0.9% 100 ML IVPB SCH (21:45)
[2020-12-24] MEDS ORDERED: Vancomycin HCl 1.25 GM in Sodium Chloride 0.9% 250 ML 250 ML IVPB SCH (21:45)
[2020-12-24] MEDS ORDERED: VANCOMYCIN 1.75 GM/350 ML BAG 1.75 GM in Premix Bag 1 BAG IVPB SCH (21:45)
[2020-12-24] MEDS ORDERED: Vancomycin HCl 750 MG in Sodium Chloride 0.9% 250 ML 250 ML IVPB SCH (21:45)
[2020-12-24] MEDS ORDERED: HOLD VANCOMYCIN FOR LEVEL >20 FS SCH (21:45)
[2020-12-24] MEDS ORDERED: Vancomycin 1 GM in Premix Bag 1 BAG IVPB SCH (21:45)
[2020-12-24 22:03] LABS: Lactic Acid 9.4 mmol/L (0.5-2.2)
[2020-12-24] MEDS ORDERED: Propofol 1,000 MG/100 ML VIAL IV ONE (22:07)
[2020-12-24 22:10] LABS: Actual Bicarbonate (HCO3a) 14.6 mEq/L (22-28); Analyzer IN Cardio ER; Base Excess (BEa) -13.4 mEq/L (-2.0 to +3.0); CO2 Tension 42.7 mmHg (35.0-45.0); Calcium, Ionized (arterial) 1.08 mmol/L (1.12-1.30); Carboxyhemoglobin (COHb) 0.7 gm% (0.0-3.0); Hemoglobin (Hb) 9.9 g/dL (14.0-18.0); Potassium - ABG Lab 5.82 mmol/L (3.70-5.30)
[2020-12-24 22:24] LABS: pH, Arterial 7.15 (7.35-7.45)
[2020-12-24 22:25] LABS: O2 Tension (PaO2), arterial 58.9 mmHg (80.0-100.0); Puncture Site RFA
[2020-12-24 22:26] LABS: ALV-art Gradient 180.055 mmHg (0-20)
[2020-12-24] MEDS ORDERED: DISCONTINUE PREVIOUS NARCOTIC PAIN MEDICATIONS AND BENZODIAZEPINES FS SCH (22:45)
[2020-12-24] MEDS ORDERED: Morphine 2 MG/ML VIAL SLOW IVP PRN (22:45)
[2020-12-24] MEDS ORDERED: Propofol BOLUS 1,000 MG/100 ML VIAL IV PRN (22:45)
[2020-12-24] MEDS ORDERED: Fentanyl BOLUS 250 ML IVPB PRN (22:45)
[2020-12-24] MEDS ORDERED: Fentanyl CADD 100 ML IV SCH (22:45)
[2020-12-25 00:22] LABS: Troponin I 0.399 ng/mL (< 0.028)
[2020-12-25 00:26] LABS: Anion Gap 34 mmol/L (10-20); BUN (Urea Nitrogen) 99 mg/dL (8.9-20.6); Calc. Creatinine Clearance 0 mL/min (70-130); Calcium 8.2 mg/dL (7.8-10.44); Carbon Dioxide 16 mmol/L (22-29); Chloride 94 mmol/L (98-107); Glucose 195 mg/dL (70-105); Potassium 6.5 mmol/L (3.5-5.1); Sodium 137 mmol/L (136-145)
[2020-12-25] MEDS: Sodium Bicarbonate 140 MEQ in Dextrose 5% in Water 1,000 ML IV SCH ×2 (00:47→09:44)
[2020-12-25] MEDS ORDERED: methylPREDNISolone Sod Succ 40 MG VIAL ONE ×4 (02:36→11:48)
[2020-12-25] MEDS: methylPREDNISolone Sod Succ 40 MG VIAL IVP SCH ×5 (02:51→23:31)
[2020-12-25] MEDS ORDERED: Norepinephrine 4 MG/4 ML VIAL ONE (04:14)
[2020-12-25] MEDS ORDERED: Norepinephrine 8 MG/0.9% NS 250 ML ONE (04:16)
[2020-12-25 04:34] LABS: Anion Gap 25 mmol/L (10-20); BUN (Urea Nitrogen) 48 mg/dL (8.9-20.6); Calc. Creatinine Clearance 0 mL/min (70-130); Calcium 8.6 mg/dL (7.8-10.44); Carbon Dioxide 21 mmol/L (22-29); Chloride 95 mmol/L (98-107); Glucose 101 mg/dL (70-105); Potassium 3.6 mmol/L (3.5-5.1); Sodium 137 mmol/L (136-145)
[2020-12-25 04:35] LABS: Lactic Acid 6.7 mmol/L (0.5-2.2)
[2020-12-25] MEDS ORDERED: Propofol 1,000 MG/100 ML VIAL IV ONE ×2 (06:12→13:31)
[2020-12-25 06:35] LABS: Band 4 % (5-11); Hemoglobin 9.8 g/dL (14.0-18.0); Lymphocytes 11 % (21-51); MDiff Complete? YES; Mean Corpuscular Hemoglobin 31.9 pg (27.0-31.0); Mean Platelet Volume 9.9 fL (7.4-10.4); Monocytes 1 % (0-10); Neutrophil 84 % (42-75); Platelet Count 147 thou/uL (130-400); RBC Distribution Width 22.2 % (11.5-14.5); Red Blood Cell (RBC) Count 3.07 mill/uL (4.70-6.10); White Blood Cell (WBC) Count 14.2 thou/uL (4.8-10.8)
[2020-12-25 08:37] LABS: Actual Bicarbonate (HCO3a) 19.8 mEq/L (22-28); Analyzer IN Cardio ER; Base Excess (BEa) -4.9 mEq/L (-2.0 to +3.0); CO2 Tension 35.1 mmHg (35.0-45.0); Calcium, Ionized (arterial) 1.08 mmol/L (1.12-1.30); Carboxyhemoglobin (COHb) 0.5 gm% (0.0-3.0); Hemoglobin (Hb) 9.8 g/dL (14.0-18.0); O2 Tension (PaO2), arterial 126.5 mmHg (80.0-100.0); Potassium - ABG Lab 4.42 mmol/L (3.70-5.30); pH, Arterial 7.37 (7.35-7.45)
[2020-12-25] MEDS ORDERED: Ondansetron PF 4 MG/2 ML Vial IVP PRN (08:44)
[2020-12-25] MEDS ORDERED: Ventilator Sedation Protocol 1 EACH FS SCH (08:45)
[2020-12-25 08:53] LABS: ALV-art Gradient 121.955 mmHg (0-20); Puncture Site LFA
[2020-12-25] MEDS ORDERED: Famotidine/PF 20 mg/2ml Vial SLOW IVP SCH (09:00)
[2020-12-25 09:24] LABS: Lactic Acid 9.2 mmol/L (0.5-2.2)
[2020-12-25] MEDS ORDERED: Pantoprazole 40 MG VIAL ONE (10:00)
[2020-12-25] MEDS: Pantoprazole 40 MG VIAL IVP SCH (10:06)
[2020-12-25] MEDS ORDERED: Acetaminophen 650 MG Suppository ONE (16:06)
[2020-12-25] MEDS: Acetaminophen 650 MG Suppository PR PRN (16:11)
[2020-12-25] MEDS: Heparin 5,000 UNITS/ML VIAL SC SCH (20:39)
[2020-12-25] MEDS: Propofol 1,000 MG/100 ML VIAL IV PRN (20:43)
[2020-12-25] MEDS ORDERED: Enoxaparin Sodium 40 MG/0.4 ML SYRINGE SC SCH (21:00)
[2020-12-26] MEDS: Acetaminophen 650 MG Suppository PR PRN (00:42)
[2020-12-26 01:06] LABS: Vancomycin, Random 15.1 ug/mL (See Comment)
[2020-12-26 04:12] LABS: ALT (SGPT) 103 U/L (8-55); AST (SGOT) 118 U/L (5-34); Albumin 2.2 g/dL (3.5-5.0); Alkaline Phosphatase 170 U/L (40-110); Anion Gap 27 mmol/L (10-20); BUN (Urea Nitrogen) 77 mg/dL (8.9-20.6); Bilirubin, Direct 1.4 mg/dL (0.1-0.3); Bilirubin, Total 1.7 mg/dL (0.2-1.2); Calc. Creatinine Clearance 0 mL/min (70-130); Calcium 8.4 mg/dL (7.8-10.44); Carbon Dioxide 27 mmol/L (22-29); Chloride 87 mmol/L (98-107); Glucose 310 mg/dL (70-105); Potassium 4.6 mmol/L (3.5-5.1); Protein, Total 5.9 g/dL (6.0-8.3); Sodium 136 mmol/L (136-145)
[2020-12-26 04:14] LABS: Lactic Acid 6.4 mmol/L (0.5-2.2)
[2020-12-26 04:29] LABS: Anisocytosis SLIGHT = 6-15 cells (100X) (0-5/hpf); Band 2 % (5-11); Hemoglobin 9.7 g/dL (14.0-18.0); Lymphocytes 3 % (21-51); MDiff Complete? YES; Macrocytosis SLIGHT = 6-15 cells (100X) (0-5/hpf); Mean Corpuscular HGB CONC 31.3 g/dL (32.0-36.0); Mean Corpuscular Hemoglobin 32.4 pg (27.0-31.0); Mean Platelet Volume 9.9 fL (7.4-10.4); Monocytes 5 % (0-10); Neutrophil 90 % (42-75); Platelet Count 135 thou/uL (130-400); RBC Distribution Width 22.3 % (11.5-14.5); Red Blood Cell (RBC) Count 2.97 mill/uL (4.70-6.10); Schistocytes SLIGHT = 2-5 cells (100X) (0-1/hpf); White Blood Cell (WBC) Count 9.3 thou/uL (4.8-10.8)
[2020-12-26] MEDS: Propofol 1,000 MG/100 ML VIAL IV PRN (05:48)
[2020-12-26] MEDS: methylPREDNISolone Sod Succ 40 MG VIAL IVP SCH ×3 (05:56→18:39)
[2020-12-26 07:31] LABS: Actual Bicarbonate (HCO3a) 27.4 mEq/L (22-28); Base Excess (BEa) 4.3 mEq/L (-2.0 to +3.0); CO2 Tension 35.1 mmHg (35.0-45.0); Calcium, Ionized (arterial) 1.04 mmol/L (1.12-1.30); Carboxyhemoglobin (COHb) 0.8 gm% (0.0-3.0); Hemoglobin (Hb) 10.2 g/dL (14.0-18.0); O2 Tension (PaO2), arterial 135.8 mmHg (80.0-100.0); Potassium - ABG Lab 4.16 mmol/L (3.70-5.30); pH, Arterial 7.51 (7.35-7.45)
[2020-12-26 07:39] LABS: ALV-art Gradient 105.525 mmHg (0-20); Puncture Site Arterial Line
[2020-12-26] MEDS: Heparin 5,000 UNITS/ML VIAL SC SCH ×3 (08:14→21:11)
[2020-12-26] MEDS: Pantoprazole 40 MG VIAL IVP SCH (08:15)
[2020-12-26] MEDS ORDERED: Prevnar 13-Val Conj/PF 0.5 ML SYRINGE IM ONE (09:00)
[2020-12-26] MEDS ORDERED: FLU VACC QS2020-21(6MOS UP)/PF 60 MCG/0.5 ML SYRINGE IM ONE (09:00)
[2020-12-26] MEDS ORDERED: Morphine 10 MG/ML VIAL SLOW IVP PRN (09:46)
[2020-12-26] MEDS ORDERED: DC Sedation Protocol FS ONE (09:46)
[2020-12-26] MEDS: Lorazepam 2 MG/ML VIAL SLOW IVP PRN ×2 (11:59→15:08)
[2020-12-27] MEDS: methylPREDNISolone Sod Succ 40 MG VIAL IVP SCH ×2 (00:38→09:07)
[2020-12-27] MEDS: Acetaminophen 650 MG Suppository PR PRN (09:01)
[2020-12-27] MEDS: Heparin 5,000 UNITS/ML VIAL SC SCH (09:07)
[2020-12-27] MEDS: Pantoprazole 40 MG VIAL IVP SCH (09:07)
[2020-12-27] MEDS ORDERED: Lorazepam 2 MG/ML VIAL SLOW IVP PRN (11:06)
[2020-12-27] MEDS ORDERED: Morphine 4 MG/ML VIAL SLOW IVP PRN (11:07)
[2020-12-27 12:03] VITALS: BP 90/58
[2020-12-27] MEDS ORDERED: Acetaminophen 650 MG Suppository PR SCH (13:00)
[2020-12-27 14:43] VITALS: TEMP 102.4
== END 2020-12-27 17:40 | disposition expired | DRG 296 ==
LOC: ERS 17:43 → ERHOLD 20:30 → CCU 12-25 16:34 → T4-A 12-26 18:22
PROVIDERS: ADMIT Student in an Organized Health Care Education/Training Program; ATTEND Internal Medicine
PROC: 3E043XZ Introduction of Vasopressor into Central Vein, Percutaneous Approach (ICD-10-PCS; principal; 2020-12-24)
PROC: 5A1945Z Respiratory Ventilation, 24-96 Consecutive Hours (ICD-10-PCS; 2020-12-24)
PROC: 0D9670Z Drainage of Stomach with Drainage Device, Via Natural or Artificial Opening (ICD-10-PCS; 2020-12-24)
PROC: 04HY32Z Insertion of Monitoring Device into Lower Artery, Percutaneous Approach (ICD-10-PCS; 2020-12-24)
PROC: 4A133B1 Monitoring of Arterial Pressure, Peripheral, Percutaneous Approach (ICD-10-PCS; 2020-12-24)
PROC: 5A12012 Performance of Cardiac Output, Single, Manual (ICD-10-PCS; 2020-12-24)
PROC: 5A1D70Z Performance of Urinary Filtration, Intermittent, Less than 6 Hours Per Day (ICD-10-PCS; 2020-12-24)
PROC: 4A133J1 Monitoring of Arterial Pulse, Peripheral, Percutaneous Approach (ICD-10-PCS; 2020-12-24)
DX: I46.9 Cardiac arrest, cause unspecified (principal); A41.9 Sepsis, unspecified organism; J96.01 Acute respiratory failure with hypoxia; R65.21 Severe sepsis with septic shock; J96.02 Acute respiratory failure with hypercapnia; N18.6 End stage renal disease; E87.2 Acidosis; M31.0 Hypersensitivity angiitis; G93.1 Anoxic brain damage, not elsewhere classified; E44.0 Moderate protein-calorie malnutrition; N25.81 Secondary hyperparathyroidism of renal origin; I42.9 Cardiomyopathy, unspecified; Z94.0 Kidney transplant status; I13.2 Hypertensive heart and chronic kidney disease with heart failure and with stage 5 chronic kidney disease, or end stage renal disease; T86.19 Other complication of kidney transplant; Z66 Do not resuscitate; Z51.5 Encounter for palliative care; Z20.822 Contact with and (suspected) exposure to COVID-19; E87.5 Hyperkalemia; D63.1 Anemia in chronic kidney disease; E16.2 Hypoglycemia, unspecified; E03.9 Hypothyroidism, unspecified; K21.9 Gastro-esophageal reflux disease without esophagitis; I50.9 Heart failure, unspecified; L30.9 Dermatitis, unspecified; Z86.79 Personal history of other diseases of the circulatory system; Z79.899 Other long term (current) drug therapy; Z78.1 Physical restraint status; Z99.2 Dependence on renal dialysis; Z91.15 Patient's noncompliance with renal dialysis; Z95.2 Presence of prosthetic heart valve; Z88.8 Allergy status to other drugs, medicaments and biological substances; Z79.52 Long term (current) use of systemic steroids; Z91.14 Patient's other noncompliance with medication regimen; Y83.0 Surgical operation with transplant of whole organ as the cause of abnormal reaction of the patient, or of later complication, without mention of misadventure at the time of the procedure; R77.8 Other specified abnormalities of plasma proteins; F19.10 Other psychoactive substance abuse, uncomplicated
CPT/HCPCS: 0240U; 36415; 36416; 36556; 36600; 36620; 70450; 71045; 72125; 80048; 80053; 80076; 80202; 82553; 82805; 83605; 83690; 84484; 85007; 85025; 85027; 85610; 85730; 90935; 92950; 93005; 93306; 94002; 94003; 96365; 96366; 96367; 96374; 96375; 96376; C9113; G0257; J0171; J1644; J1815; J1956; J2060; J2270; J2310; J2704; J2920; J3370; J7070